=== PATIENT | male | born 1955 | race Caucasian/White ===

== ENCOUNTER → 2020-12-11 09:57 | Outpatient (CLI) | payer MEDICAID, SELFPAY ==
[2020-11-18 11:02] VITALS: BMI 32.2
--- NOTE | 2020-12-11 15:38 | PFTCOMP ---
COMPLETE PULMONARY FUNCTION TEST INTERPRETATION Brief HPI: Patient is a 65 year old male, currently under the care of [myself Dr. Powell], who presents to [facility] [place] for complete pulmonary function tests secondary to diagnosis of COPD. Respiratory therapist reports good effort and reproducible results. Interpretation: Forced expiration spirometry shows a moderately severe large airways obstructive ventilatory defect with an FEV1 of 53% predicted. There is no significant bronchodilator response by strict ATS criteria. Spirograms are of good quality and plateau [slowly, indicating slowly emptying areas of the lungs]. The respiratory flow volume loop shows [decreased expiratory flow rates at all lung volumes consistent with airway obstruction]. Lung volumes by body plethysmography show an elevated total lung capacity at 9.91 L, 168% predicted. [FRC and RV are elevated out of proportion.] Lung volume measurements are consistent with [hyperinflation and] air-trapping. Diffusion capacity by carbon monoxide is decreased at 56% predicted. The airway resistance is elevated. [No previous pulmonary function tests were available for review.] Impression: Irreversible moderately severe large airways obstructive ventilatory defect with a symmetric reduction diffusing capacity, resulting in air trapping with hyperinflation, in a pattern consistent with COPD.
== END ==
PROVIDERS: Referring Provider Internal Medicine Critical Care Medicine; Visit Provider Internal Medicine Critical Care Medicine
DX: J44.9 Chronic obstructive pulmonary disease, unspecified (principal)
CPT/HCPCS: 94060; 94726; 94729

== ENCOUNTER → 2020-12-16 07:56 | Outpatient (CLI) | payer MEDICAID, SELFPAY ==
[2020-11-18 11:02] VITALS: BMI 32.2
[2020-12-16 08:34] VITALS: PULSE 100; PULSE 103; PULSE 105; PULSE 106; PULSE 81; PULSE 90; O2SAT 92; O2SAT 93; O2SAT 94; O2SAT 96; O2SAT 98
--- NOTE | 2020-12-17 10:25 | PCM.PSN.6M ---
PSN 6 Minute Walk Test - 6 Minute Walk Test 6 Minute Walk Test: 6 Minute Walk Test PSN:6-Minute Walk Test Start: 12/16/20 08:34 Freq: Status: Active Protocol: RESP.6MINW Document 12/16/20 08:34 FR (Rec: 12/16/20 08:38 FR [id number]) 6 Minute Walk Test Date Performed 12/16/20 Time Performed 08:15 Height 5 ft 7 in Weight: 205 lb Weight in Pounds 205.[address]: DR. CUEVAS Assistive device used: None Pre-test Oxygen Delivery Method Room Air Pulse Ox (%) 98 Pulse Rate (60-100 beats/min) 81 Dyspnea David Scale (0-10) 1 Exertion David Scale (6-20) 11 1st minute Oxygen Delivery Method Room Air Pulse Ox (%) 96 Pulse Rate (60-100 beats/min) 100 2nd minute Oxygen Delivery Method Room Air Pulse Ox (%) 94 Pulse Rate (60-100 beats/min) 103 H 3rd minute Oxygen Delivery Method Room Air Pulse Ox (%) 92 Pulse Rate (60-100 beats/min) 105 H 4th minute Oxygen Delivery Method Room Air Pulse Ox (%) 93 Pulse Rate (60-100 beats/min) 105 H 5th minute Oxygen Delivery Method Room Air Pulse Ox (%) 93 Pulse Rate (60-100 beats/min) 106 H 6th minute Oxygen Delivery Method Room Air Pulse Ox (%) 92 Pulse Rate (60-100 beats/min) 106 H Dyspnea David Scale (0-10) 6 Exertion David Scale (6-20) 14 Post-test Oxygen Delivery Method Room Air Pulse Ox (%) 98 Pulse Rate (60-100 beats/min) 90 Full Laps Walked 20 Partial Lap, Number of Tiles Walked 37 Total Distance Walked (ft) 1217 - Interpretation Interpretation: The patient ambulated 1217 feet over the course of 6 minutes beginning on room air without any assistive devices. Pretesting oxygen saturation was noted to be 98% on room air. With ambulation, the [place] oxygen saturation was 92%. This represents a significant exertional oxygen desaturation. - Recommendations Recommendations: There is no indication for the use of supplemental oxygen at this time. However, close interval follow-up is recommended, given the degree of oxygen desaturation noted during the study.
== END ==
PROVIDERS: Referring Provider Internal Medicine Critical Care Medicine; Visit Provider Internal Medicine Critical Care Medicine
DX: J44.9 Chronic obstructive pulmonary disease, unspecified (principal)
CPT/HCPCS: 94618

== ENCOUNTER → 2020-12-30 19:53 | Outpatient (CLI) | payer MEDICAID, SELFPAY ==
[2020-11-18 11:02] VITALS: BMI 32.2
== END ==
PROVIDERS: Visit Provider Internal Medicine Critical Care Medicine
DX: G47.10 Hypersomnia, unspecified (principal)
CPT/HCPCS: 95810

== ENCOUNTER → 2021-01-27 16:03 | Outpatient (CLI) | payer MEDICAID, SELFPAY ==
[2021-01-26 11:14] VITALS: BMI 31.6
--- NOTE | 2021-01-27 16:07 | RAD_ITS ---
STUDY: X-RAY CHEST REASON FOR EXAM: Male, 65 years old. Reductive cough for over one year. TECHNIQUE: PA and lateral views of the chest. COMPARISON: None. FINDINGS: The lungs are well expanded. There is vague densities at both lung bases. There is no demonstrated pleural abnormality. Normal size heart. Normal mediastinum and jimi. Normal visualized pulmonary arteries. Normal visualized aortic arch and descending thoracic aorta. There are diffuse degenerative changes of the visualized thoracic spine. Normal visualized ribs, clavicles, and shoulders. There is no demonstrated abnormality of the visualized soft tissue structures of the upper abdomen. RAD/Chest PA and Lateral IMPRESSION: Bibasilar infiltrates. Electronically Signed: Micah Cole DO at 23:48 EDT Tel [phone], Service support ,
== END ==
PROVIDERS: Referring Provider Nurse Practitioner Acute Care; Visit Provider Nurse Practitioner Acute Care
DX: R05 Cough (principal)
CPT/HCPCS: 71046

== ENCOUNTER → 2021-02-10 20:04 | Outpatient (CLI) | payer MEDICAID, SELFPAY ==
[2021-01-26 11:14] VITALS: BMI 31.6
[2021-02-10] MEDS: Zolpidem Tartrate 5 MG Tablet PO (21:15)
== END ==
PROVIDERS: Visit Provider Internal Medicine Critical Care Medicine
DX: G47.10 Hypersomnia, unspecified (principal)
CPT/HCPCS: 95810

== ENCOUNTER → 2021-07-07 15:56 | Outpatient (CLI) | payer MEDICAID, SELFPAY ==
--- NOTE | 2021-07-07 15:59 | CT_ITS ---
STUDY: CT CHEST WITHOUT CONTRAST REASON FOR EXAM: Male, 65 years old. Lung nodule RADIATION DOSAGE (If Supplied By Facility): CTDIvol = ( 14.54 ) mGy, DLP = ( 621.47 ) mGycm TECHNIQUE: Transaxial imaging was performed without the administration of intravenous contrast material. Multiplanar coronal and sagittal images were reformatted. Individualized dose optimization techniques were used for this CT. COMPARISON: Comparison is made with prior chest radiograph dated 01/27/2021. FINDINGS: Hyperinflation. Diffuse emphysematous changes with bullous formation in the upper lobes. Findings suggestive of focal scarring in the right lung apex. There is no demonstrated pleural abnormality. There are calcifications of the coronary arteries. Minimal degree of anterior pericardial thickening There are multiple small lymph nodes within the mediastinum, which are normal in size and morphology most compatible with reactive lymph hyperplasia. Normal hilar regions. Normal unenhanced pulmonary arteries. There is atherosclerotic calcification of the aortic arch. There are multi-level degenerative changes of the thoracic spine. There is no demonstrated abnormality of the visualized upper abdomen. CT/Chest without Contrast IMPRESSION: Hyperinflation and emphysematous changes worse in the upper lobes with area of focal scarring in the right lung apex. Electronically Signed: Choco Martinez MD at 9:51 EDT , Service support ,
== END ==
PROVIDERS: Referring Provider Internal Medicine Critical Care Medicine; Visit Provider Internal Medicine Critical Care Medicine
DX: R91.1 Solitary pulmonary nodule (principal)
CPT/HCPCS: 71250

== ENCOUNTER → 2021-08-17 09:58 | Outpatient (CLI) | payer MEDICAID, SELFPAY ==
[2021-08-17 13:38] LABS: Bacteria 0 SEEN /hpf (None Seen); Mucous, Urine 0 SEEN /hpf (<or=2+); Red Blood Cells-Urine 0 SEEN /hpf (0-5); Squamous Epithelial Cells - UA 0 SEEN /hpf (0-5); White Blood Cells 0 SEEN /hpf (0-5)
[2021-08-17 15:06] LABS: Color, Urine Yellow (Yellow); Glucose, Dipstick Normal (Normal); Ketone-Dipstick Negative (Negative); Leukocyte Esterase-Dipstick Negative /ul (Negative); Nitrite-Dipstick Negative (Negative); Occult Blood-Urine Negative /ul (Negative); Protein-Dipstick Negative (Negative); Specific Gravity, Urine 1.005 (1.002-1.030); Urine Bilirubin Dipstick Negative (Negative); Urine Clarity Clear (Clear); Urine Urobilinogen Normal (Normal); Urine pH 6.5 (5.0 - 8.0)
[2021-08-17 15:09] LABS: Absolute Lymphocyte Count 2.18 X10^3/uL (0.83-4.51); Absolute Neutrophil Count 5.8 X10^3/uL (2.0-7.7); Basophil# 0.05 X10^3/uL; Basophil% 0.5 % (0-1); Eosinophil# 0.17 X10^3/uL; Eosinophils% 1.8 % (0-5); Hematocrit 45.8 % (40-54); Hemoglobin 15.1 g/dL (13.0-16.5); Lymphocyte # 2.18 X10^3/ul (0.83-4.51); Lymphocyte % 23.6 % (19-41); Mean Corpuscular Hgb 32.3 pg (27.0-32.0); Mean Corpuscular Volume 98.1 fL (80-94); Mean Platelet Vol. 11.7 fl (6.2-12.0); Monocyte# 0.96 X10^3/uL; Monocyte% 10.4 % (0-10); NRBC Flagged by Analyzer 0 % (0-5); Neutrophil # 5.83 X10^3/uL (2.7-7.7); Neutrophil % 63.4 % (47-70); Platelet Count 215 K/mm3 (150-450); RBC Distribution Width CV 12.6 % (11.6-14.6); RBC Distribution Width SD 45.2 fl (35.1-43.9); Red Blood Count 4.67 M/mm3 (4.6-6.2); White Blood Count 9.2 K/mm3 (4.4-11.0)
[2021-08-17 15:34] LABS: ALB/GLOB Ratio 1.1 RATIO (0.9-2.4); AST(SGOT) 18 U/L (15-37); Alanine Aminotransfer ALT/SGPT 25 U/L (16-61); Alkaline Phosphatase 101 U/L (45-117); Anion Gap 5 (5-15); BUN 10 mg/dL (7-18); BUN/Creat Ratio 9.3 RATIO (10-20); CPK Total, Creatine Kinase 176 U/L (39-308); Calcium,Total 9.2 mg/dL (8.5-10.1); Chloride 103 mmol/L (98-107); Cholesterol 136 mg/dL (200); Creatinine, Serum 1.08 mg/dL (0.70-1.30); EST Glomerular Filtration Rate 73 mL/min (>60); Est Glom Filt Rate - Afr Amer 88 mL/min (>60); Ferritin 161 ng/mL (26-388); Globulin 3.7 g/dL (2.2-4.2); Glucose 119 mg/dL (74-106); High Density Lipoprotein 44 mg/dL; Magnesium 2.4 mg/dL (1.6-2.6); Protein, Total 7.7 g/dL (6.4-8.2); Sodium Level 137 mmol/L (136-145); T4 Free Direct 1.06 ng/dL (0.76-1.46); Thyroid Stim Hormone (TSH) 4.05 uIU/mL (0.358-3.74); Triglycerides 140 mg/dL; Very Low Density Lipoprotein 28 mg/dL (5-40)
[2021-08-19 23:09] LABS: Anti-Thyroglobulin AB < 1.0 IU/mL (0.0-0.9); Thyroglobulin, Serum Qt. 17.2 ng/mL (1.4-29.2); Thyroid Peroxidase AB < 8 IU/mL (0-34)
== END ==
PROVIDERS: Visit Provider Family Medicine
DX: I10 Essential (primary) hypertension (principal); E04.1 Nontoxic single thyroid nodule; R25.2 Cramp and spasm
CPT/HCPCS: 80053; 80061; 81001; 82043; 82550; 82570; 82728; 83735; 84432; 84439; 84443; 85025; 86376; 86800

== ENCOUNTER → 2021-09-23 13:44 | Outpatient (CLI) | payer MEDICAID, SELFPAY ==
--- NOTE | 2021-09-23 13:47 | US_ITS ---
STUDY: THYROID ULTRASOUND REASON FOR EXAM: Male, 65 years old. NODULE TECHNIQUE: Ultrasound evaluation of the thyroid was performed with real-time and static aponte-scale imaging. COMPARISON: None. FINDINGS: RIGHT LOBE: The right lobe of the thyroid gland measures 4.5 x 2 x 1.4 cm. There is a homogeneous echotexture. There are no demonstrated solid, cystic or complex lesions. LEFT LOBE: The left lobe of the thyroid gland measures 4.8 x 2.5 x 2 cm. There is a homogeneous echotexture. There are no demonstrated solid, cystic or complex lesions. ISTHMUS: The isthmus measures 2.2 mm. The regional lymph nodes are normal. US/Thyroid IMPRESSION: There are no acute findings on this ultrasound examination of the thyroid. Electronically Signed: Keanu Liang MD at 15:34 EST , Service support ,
--- NOTE | 2021-09-23 13:47 | US_ITS ---
STUDY: ABDOMINAL ULTRASOUND - RIGHT UPPER QUADRANT REASON FOR VISIT: Male, 65 years old. ABDOMEN PAIN RUQ PAIN TECHNIQUE: Ultrasound evaluation of the right upper quadrant was performed with real-time and static aponte-scale imaging. TECHNICAL QUALITY: Adequate. COMPARISON: None. FINDINGS: Liver: There is increased echogenicity consistent with fatty infiltration. The bile ducts are within normal limits. There is hepatic color flow. The direction of portal flow is hepatopetal. There is no demonstrated mass lesion. Gallbladder: Normal distended gallbladder. The gallbladder wall measures 2.8 mm. There is a negative sonographic Molina''s sign. There is no pericholecystic fluid. There are no gallstones. Common Bile Duct (C.B.D.): The common bile duct measures ( in mm): 3.5 Pancreas: Normal size of the head, body of the pancreas. There is normal echogenicity of the pancreas. There is no demonstrated pancreatic mass or cyst. Right Kidney: Normal size of the right kidney. The right kidney measures 9.6 cm. . Normal renal cortex. There is no demonstrated renal mass or cyst. There is no right hydronephrosis. Aorta: It is not visualized. There is too much overlying bowel gas. . US/Abdomen Limited IMPRESSION: Fatty liver. Electronically Signed: Keanu Liang MD at 15:47 EST , Service support ,
== END ==
PROVIDERS: Referring Provider Family Medicine; Visit Provider Family Medicine
DX: E04.1 Nontoxic single thyroid nodule (principal); R10.11 Right upper quadrant pain
CPT/HCPCS: 76536; 76705

== ENCOUNTER 2021-10-21 16:42 | Outpatient (CLI) | payer MEDICAID, SELFPAY ==
[2021-10-21 17:52] LABS: Absolute Lymphocyte Count 1.93 X10^3/uL (0.83-4.51); Absolute Neutrophil Count 5.5 X10^3/uL (2.0-7.7); Basophil# 0.04 X10^3/uL; Basophil% 0.5 % (0-1); Eosinophil# 0.13 X10^3/uL; Eosinophils% 1.5 % (0-5); Hematocrit 41.1 % (40-54); Hemoglobin 13.9 g/dL (13.0-16.5); Lymphocyte # 1.93 X10^3/ul (0.83-4.51); Lymphocyte % 22.7 % (19-41); Mean Corp Hgb Conc 33.8 g/dL (32-36); Mean Corpuscular Hgb 32.8 pg (27.0-32.0); Mean Corpuscular Volume 96.9 fL (80-94); Mean Platelet Vol. 11.3 fl (6.2-12.0); Monocyte# 0.91 X10^3/uL; Monocyte% 10.7 % (0-10); NRBC Flagged by Analyzer 0 % (0-5); Neutrophil # 5.46 X10^3/uL (2.7-7.7); Neutrophil % 64.1 % (47-70); Platelet Count 182 K/mm3 (150-450); RBC Distribution Width CV 12.2 % (11.6-14.6); RBC Distribution Width SD 43.6 fl (35.1-43.9); Red Blood Count 4.24 M/mm3 (4.6-6.2); White Blood Count 8.5 K/mm3 (4.4-11.0)
[2021-10-21 18:27] LABS: Vitamin D,25 Hydroxy 61.7 ng/mL
[2021-10-22 07:57] LABS: ALB/GLOB Ratio 1.1 RATIO (0.9-2.4); AST(SGOT) 17 U/L (15-37); Alanine Aminotransfer ALT/SGPT 24 U/L (16-61); Albumin, Serum 3.9 g/dL (3.2-5.0); Alkaline Phosphatase 92 U/L (45-117); Anion Gap 7 (5-15); BUN 9 mg/dL (7-18); BUN/Creat Ratio 9.5 RATIO (10-20); Chloride 107 mmol/L (98-107); Cholesterol 113 mg/dL (200); Creatinine, Serum 0.94 mg/dL (0.70-1.30); EST Glomerular Filtration Rate 85 mL/min (>60); Est Glom Filt Rate - Afr Amer 103 mL/min (>60); Globulin 3.4 g/dL (2.2-4.2); Glucose 88 mg/dL (74-106); High Density Lipoprotein 40 mg/dL; Potassium 4.1 mmol/L (3.5-5.1); Protein, Total 7.3 g/dL (6.4-8.2); Sodium Level 141 mmol/L (136-145); T4 Free Direct 1.07 ng/dL (0.76-1.46); Thyroid Stim Hormone (TSH) 1.95 uIU/mL (0.358-3.74); Triglycerides 106 mg/dL; Very Low Density Lipoprotein 21 mg/dL (5-40)
[2021-10-22 09:59] LABS: Hemoglobin A1c 5.6 % (3.8-5.6)
== END 2021-10-21 23:59 | disposition short-term general hospital (02) ==
LOC: MFPLAB 16:46
PROVIDERS: Family Medicine; PCP Family Medicine; Referring Provider Family Medicine; Visit Provider Family Medicine
DX: I10 Essential (primary) hypertension (principal); R73.02 Impaired glucose tolerance (oral); E78.5 Hyperlipidemia, unspecified; E03.8 Other specified hypothyroidism; E55.9 Vitamin D deficiency, unspecified
CPT/HCPCS: 36415; 80053; 80061; 82306; 83036; 84439; 84443; 85025

== ENCOUNTER 2021-11-24 09:57 | Outpatient (CLI) | payer MEDICARE, BC, SELFPAY ==
--- NOTE | 2021-11-24 13:37 | PFTCOMP_ITS ---
COMPLETE PULMONARY FUNCTION TEST INTERPRETATION Brief HPI: Patient is a 66 year old male, currently under the care of myself, who presents to [facility] for complete pulmonary function tests secondary to diagnosis of COPD. Respiratory therapist reports good effort and reproducible results. Interpretation: Forced expiration spirometry shows a severe large airways obstructive ventilatory defect with an FEV1 of 47% predicted. There is a significant bronchodilator response in FVC and FEV1 by strict ATS criteria. Spirograms are of good quality and plateau slowly, indicating slowly emptying areas of the lungs. The respiratory flow volume loop shows decreased expiratory flow rates at all lung volumes consistent with airway obstruction. Lung volumes by body plethysmography show an elevated total lung capacity at 8.4 L, 143% predicted. FRC and RV are elevated out of proportion. Lung volume measurements are consistent with hyperinflation and air-trapping. Diffusion capacity by carbon monoxide is decreased at 52% predicted. The airway resistance is elevated. Compared to previous pulmonary function tests from 12/11/2020, there has been a significant decrease in FVC and FEV1 by 25%. Impression: Partially reversible severe large airways obstructive ventilatory defect resulting in air trapping with hyperinflation and a symmetric adduction diffusion capacity.
== END 2021-11-24 23:59 | disposition home or self-care (01) ==
PROVIDERS: PCP Family Medicine; Referring Provider Internal Medicine Critical Care Medicine; Visit Provider Internal Medicine Critical Care Medicine
DX: J44.9 Chronic obstructive pulmonary disease, unspecified (principal)
CPT/HCPCS: 94060; 94726; 94729

== ENCOUNTER → 2022-03-11 | Outpatient (CLI) | payer MEDICARE, BC, SELFPAY ==
[2022-03-11 17:56] LABS: Absolute Lymphocyte Count 1.62 X10^3/uL (0.83-4.51); Absolute Neutrophil Count 5.6 X10^3/uL (2.0-7.7); Basophil# 0.04 X10^3/uL; Basophil% 0.5 % (0-1); Eosinophil# 0.12 X10^3/uL; Eosinophils% 1.5 % (0-5); Hematocrit 41.5 % (40-54); Hemoglobin 13.6 g/dL (13.0-16.5); Lymphocyte # 1.62 X10^3/ul (0.83-4.51); Lymphocyte % 19.9 % (19-41); Mean Corp Hgb Conc 32.8 g/dL (32-36); Mean Corpuscular Hgb 31.9 pg (27.0-32.0); Mean Corpuscular Volume 97.4 fL (80-94); Mean Platelet Vol. 11.5 fl (6.2-12.0); Monocyte# 0.75 X10^3/uL; Monocyte% 9.2 % (0-10); NRBC Flagged by Analyzer 0 % (0-5); Neutrophil # 5.58 X10^3/uL (2.7-7.7); Neutrophil % 68.5 % (47-70); Platelet Count 219 K/mm3 (150-450); RBC Distribution Width CV 12.5 % (11.6-14.6); RBC Distribution Width SD 44.9 fl (35.1-43.9); Red Blood Count 4.26 M/mm3 (4.6-6.2); White Blood Count 8.1 K/mm3 (4.4-11.0)
[2022-03-11 18:02] LABS: Vitamin D,25 Hydroxy 69.8 ng/mL
[2022-03-11 18:05] LABS: ALB/GLOB Ratio 1.4 RATIO (0.9-2.4); AST(SGOT) 14 U/L (15-37); Alanine Aminotransfer ALT/SGPT 22 U/L (16-61); Albumin, Serum 3.8 g/dL (3.2-5.0); Alkaline Phosphatase 95 U/L (45-117); Anion Gap 5 (5-15); BUN 9 mg/dL (7-18); BUN/Creat Ratio 9.1 RATIO (10-20); Calcium,Total 8.9 mg/dL (8.5-10.1); Chloride 107 mmol/L (98-107); Cholesterol 126 mg/dL (200); Creatinine, Serum 0.99 mg/dL (0.70-1.30); EST Glomerular Filtration Rate 80 mL/min (>60); Est Glom Filt Rate - Afr Amer 97 mL/min (>60); Globulin 2.8 g/dL (2.2-4.2); Glucose 101 mg/dL (74-106); High Density Lipoprotein 48 mg/dL; Potassium 4.3 mmol/L (3.5-5.1); Protein, Total 6.6 g/dL (6.4-8.2); Sodium Level 139 mmol/L (136-145); Thyroid Stim Hormone (TSH) 2.25 uIU/mL (0.358-3.74); Triglycerides 93 mg/dL; Very Low Density Lipoprotein 19 mg/dL (5-40)
== END | disposition home or self-care (01) ==
LOC: MFPLAB 15:43
PROVIDERS: PCP Family Medicine; Referring Provider Family Medicine; Visit Provider Family Medicine
DX: E55.9 Vitamin D deficiency, unspecified (principal); E03.8 Other specified hypothyroidism; E78.5 Hyperlipidemia, unspecified; I10 Essential (primary) hypertension
CPT/HCPCS: 36415; 80053; 80061; 82306; 84439; 84443; 85025

== ENCOUNTER 2022-05-10 09:25 | Day surgery (SDC) | payer MEDICARE, BC, SELFPAY ==
[2022-05-10] VITALS (7 sets, daily range): BP systolic 110–135; BP diastolic 75–86; PULSE 72–77; RESP 16; TEMP 36.2–36.3; O2SAT 96–100; BMI 30.7
--- NOTE | 2022-05-10 | IMM_PTH ---
PATIENT: EVELINE REYNOLDS LOC: EN U#:[id number] AGE/SX: 66/M ROOM: RE05/10/[address]: Dr. Lilian Kimbrough MD : 1955 BED: DIS: 05/10/2022 SPEC #: [id number] RECD: 05/11/22 07:57 STATUS: JAYDON REEfrain #: [id number] DEJAH: 05/10/22 00:[address]: Lilian Kimbrough DEPT: IMMUNOHISTOCHEMISTRY RECD BY: Meaghan Lara ENTERED: 05/11/22 07:57 SP TYPE: IMMUNO OTHR DR: Dr. Alexsander Casanova MD Tissues: COLON BIOPSY Procedures: H Pylori (initial) CK7 (add) KI-67 (add) P53 (add) CDX2 (add) CK20 (initial) PHYSICIAN & INSTITUTION [place] [id number] SPECIMEN INFORMATION: Tissue Source: A. Antrum biopsy, B. GE junction Clinical Info: GERD, history of colonic polyp Specimen Number: [id number] A & B CPT code: 85963 x2, 21044 x4 METHODOLOGY: Deparaffinized sections of prefer/formalin-fixed tissue or PAP/DQ stained slides are incubated with monoclonal/polyclonal antibodies/oligonucleotide probes. Localization is made via biotin free immunoperoxidase method. Appropriate controls are performed and reacted as expected. Results on target cell population are indicated in the following table: RESULTS: ANTIBODY / CLONE RESULT Block A H Pylori (polyclonal) negative Block B P53 (DO-7) negative Ki-67 (30-9) positive, high CK7 (OV-TL12/30) positive CK20 (KS20.8) positive, rare cells CDX2 ([id number]) positive These tests were developed and their performance characteristics determined by [facility]. They may not have been cleared or approved by the U.S. Food and Drug Administration. The FDA has determined that such clearance or approval is not necessary. The above immunohistochemical/dualISH markers are ordered and reviewed by the Pathologist. INTERPRETATION: A. Antrum biopsy: Negative for Helicobacter pylori organisms. B. GE junction, biopsy: Focal epithelial atypia, indefinite for low grade dysplasia. This case has been reviewed in consultation with Dr. Boudreaux who concurs with above diagnosis. SJ:davin 05/12/22
--- NOTE | 2022-05-10 09:41 | H&P.OPEN ---
HPI - General HPI Narrative EVELINE REYNOLDS, is a 66 M who presents for EGD and colonoscopy. Patient still controlled with his lansoprazole for reflux symptoms. Patient last colonoscopy about 7 years ago had a couple polyps at that time per patient. Denies any family history of colon cancer. EVELINE REYNOLDS, is a 66 M who presents to the office today for colonoscopy due to history of colon polyps patient's colonoscopy was approximately 7 years ago in [place] unsure [facility] Patient states he had 2-3 polyps at that time.? Patient states he has bowel movements daily denies any blood.? Denies any chronic abdominal pain nausea/vomiting.? Patient states he has been on lansoprazole for about 5 years does control his reflux symptoms.? Patient had an EGD previously a long time prior to even being on the reflux medication.? Patient has never had an EGD since the medication. [facility] Medical History (Updated 05/05/22 @ 11:28 by Diamante Bates) Anxiety Arthritis Asthma Back pain Carpal tunnel syndrome Chronic bronchiolitis Chronic cough COPD (chronic obstructive pulmonary disease) Deficient knowledge of leg surgery Depression Easy bruising Fatty liver GERD (gastroesophageal reflux disease) History of diverticulitis History of hiatal hernia History of stress test Hypertension Leg cramps On home oxygen therapy Osteoarthritis Prostate atrophy Prostate disease Smoker Wears dentures Wears glasses Wears hearing aid Home Medications cholecalciferol (vitamin D3) 50 mcg (2,000 unit) capsule 2,000 unit PO DAILY 11/24/17 [History Last Taken Unknown] multivitamin with folic acid 200 mcg chewable tablet (Adult Multivitamin Extra Vitamin D3) 200 mcg PO DAILY 11/24/17 [History Last Taken Unknown] tamsulosin 0.4 mg capsule 0.4 mg PO QHS 11/24/17 [History Last Taken Unknown] cetirizine 10 mg capsule (All Day Allergy (cetirizine)) 10 mg PO DAILY 01/26/21 [History Last Taken Unknown] albuterol sulfate 90 mcg/actuation aerosol inhaler 2 puff inhalation Q6H PRN SOB 12/11/21 [History Last Taken Unknown] finasteride 5 mg tablet 5 mg PO DAILY 12/11/21 [History Last Taken Unknown] sertraline 50 mg tablet 50 mg PO DAILY 12/11/21 [History Last Taken Unknown] amlodipine 5 mg tablet 5 mg PO QHS 05/05/22 [History Last Taken Unknown] atorvastatin 20 mg tablet 20 mg PO QHS 05/05/22 [History Last Taken Unknown] cyanocobalamin-liver extract tablet 1 tab PO QWEEK 05/05/22 [History Last Taken Unknown] docusate sodium 100 mg capsule (Stool Softener) 100 mg PO DAILY 05/05/22 [History Last Taken Unknown] fluticasone fur. 100 mcg-umeclid 62.5 mcg-vilant 25 mcg inhalat.powder (Trelegy Ellipta) 1 inh inhalation DAILY 05/05/22 [History Last Taken Unknown] guaifenesin 600 mg tablet, extended release 12 hr (Mucinex) 600 mg PO Q12H PRN Cough 05/05/22 [History Last Taken Unknown] lansoprazole 15 mg capsule,delayed release 30 mg PO BID 05/05/22 [History Last Taken Unknown] Allergy/AdvReac Type Severity Reaction Status Date / Time ibuprofen Allergy Mild shakes Verified 05/05/22 11:13 formoterol AdvReac Unknown unknown Verified 05/05/22 11:13 mometasone furoate AdvReac Unknown unknown Verified 05/05/22 11:13 Family History Other Alcohol abuse Anemia Arthritis Heart disease Kidney disease Myocardial infarction Respiratory disease Surgical History (Updated 05/05/22 @ 11:28 by Diamante Bates) History of esophagogastroduodenoscopy (EGD) Hx of colonoscopy Hx of foot surgery Social History Smoking Status: Current every day smoker tobacco type: cigarettes Tobacco: How many years used: 40 alcohol intake: never substance use type: does not use what type of physical activity do you participate in: none Past Medical/Surgical History Planned Operation Planned Operative Procedure/s: EGD/CSCOPE Previous Hospitalizations/Surgeries HX Hospitalizations: No Any Problems With Anesthesia: No You/Your Family Experience Fever (Hyperthermia) With Anes: No Cholinesterase deficiency: No Cardiovascular Hx Hypertension: Yes (CONTROLLED WITH MED) Respiratory Hx Sleep Apnea: No Hx Respiratory Tract Infection/Cold (presently): No Do You Snore Loudly (louder than talking or can be heard): Yes Do You Often Feel Tired/ Fatigued/ Sleepy Dring Daytime?: No Has Anyone Observed You Stop Breathing During Sleep?: No Result (for STOP score): Positive Smoking Status: Current every day smoker Neurological Does patient have nerve stimulator: No Reproduction : No Allergies ibuprofen Allergy (Mild, Verified 05/05/22 11:13) shakes formoterol Adverse Reaction (Unknown, Verified 05/05/22 11:13) unknown mometasone furoate Adverse Reaction (Unknown, Verified 05/05/22 11:13) unknown Discharge Is Pt Admitted From a [facility], or a Fdc: No After D/C, Where Do you Plan to Go: Return Home Physical Exam Const alert, oriented x3 and no apparent distress HEENT normocephalic and head/scalp atraumatic Resp normal respiratory effort Cardio regular rate GI soft to palpation and non-tender; Negative for non-distended Palpation: Negative for guarding Extremity no clubbing, cyanosis or edema Neuro CN's II-XII intact bilaterally Psych mental status grossly normal Assessment & Plan Assessment/Plan (1) GERD (gastroesophageal reflux disease): (2) Hx of colonic polyps: Surgery Risks - Colonoscopy Risks Include but are not Limited To: Risks include but are not limited to: Bleeding, perforation requiring further surgery, inability to complete colonoscopy requiring barium enema.
[2022-05-10] MEDS: Lactated Ringers 1,000 ML 15 ML IV ×3 (10:10→11:01)
--- NOTE | 2022-05-10 10:30 | EGD_PTH ---
PATIENT: EVELINE REYNOLDS LOC: [facility] U#:[id number] AGE/SX: 66/M ROOM: RE05/10/[address]: Dr. Lilian Kimbrough MD : 1955 BED: DIS: 05/10/2022 SPEC #: [id number] RECD: 05/10/22 11:32 STATUS: JAYDON LOUANN #: [id number] DEJAH: 05/10/22 10:[address]: Lilian Kimbrough DEPT: SURGICAL PATHOLOGY RECD BY: Domi Brandno ENTERED: 05/10/22 12:18 SP TYPE: EGD BIOPSY OT DR: Dr. Alexsander Casanova MD Tissues: A - Gastric mucous membrane B - Stomach, NOS C - Cecum, NOS D - Cecum, NOS E - Ascending colon F - Sigmoid colon biopsy G - Rectum, NOS Procedures: Surgery Specimen Level IV HEADER OPERATION: Colonoscopy, E[place] [place] with biopsies and polypectomy PRE-OP DIAGNOSIS: GERD, history of colonic polyp TISSUE SUBMITTED: A. Antrum biopsy, B. GE junction, C. Cecum polyps x4, D. Cecum polyp, E. Ascending polyp, F. Sigmoid polyp x2, G. Rectum polyp MICROSCOPIC DIAGNOSIS A. Antrum biopsy: Mild gastritis. See microscopic description and comment. B. GE junction, biopsy: A fragment of gastroesophageal mucosa with focal epithelial atypia, indefinite for low grade dysplasia. Focal chronic inflammation. Intestinal metaplasia (goblet cell metaplasia) not identified. See comment. C. Cecum polyps x4, biopsy: Fragments of tubular adenoma. D. Cecum polyp, biopsy: Tubular adenoma. E. Ascending polyp, biopsy: Fragments of tubular adenoma. Fragments of fecal material. F. Sigmoid polyp x2, biopsy: Tubular adenoma. Fragments of hyperplastic polyp. G. Rectum polyp, biopsy: Hyperplastic polyp. SJ 05/12/22 COMMENT A. The results of immunohistochemistry for Helicobacter pylori will be reported separately ([id number]). B. Alcian blue/PAS stain with matched control supports the above diagnosis. Immunohistochemistry ([id number]) for P53 and Ki-67 will be performed and results will be reported separately. Correlation with clinical, endoscopic findings and appropriate follow up are necessary. Case has been reviewed in consultation with Dr. Boudreaux who concurs with the above diagnosis. IDC:AM MICROSCOPIC DESCRIPTION Slides are reviewed. The specimen shows fragments of gastric mucosa with chronic inflammatory cell infiltrates in the lamina propria consisting of lymphocytes and plasma cells, consistent with mild chronic gastritis. GROSS DESCRIPTION A. Received is one container labeled with the patient name and designated antrum. The specimen consists of one irregular fragment of light connors soft tissue that measures 03 x 0.3 x 0.1 cm. The specimen is totally submitted in one cassette. B. Received is one container labeled with the patient name and designated GE junction. The specimen consists of one irregular fragment of light connors soft tissue that measures 0.3 x 0.3 x 0.1cm. The specimen is totally submitted in one cassette. C. Received is one container labeled with the patient name and designated cecum. The specimen consists of multiple irregular fragments of light connors soft tissue that in aggregate measure 2.0 x 0.5 x 0.1 cm. The specimen is totally submitted in one cassette. / D. Received is one container labeled with the patient name and designated cecum polyp. The specimen consists of one connors pink polyp that measures 1.0 x 0.5 x 0.5cm. The apparent base is inked. The specimen is bisected and totally submitted in one cassette. E. Received is one container labeled with the patient name and designated ascending polyp. The specimen consists of multiple irregular fragments of light connors soft tissue mixed with fecal material that in aggregate measure 1.0 x 0.5 x 0.1 cm. The specimen is totally submitted in one cassette. F. Received is one container labeled with the patient name and designated sigmoid polyp. The specimen consists of multiple irregular fragments of light connors soft tissue that in aggregate measure 1.5 x 0.5 x 0.3 cm. The specimen is totally submitted in one cassette. / G. Received is one container labeled with the patient name and designated rectum. The specimen consists of one connors pink polyp that measures 0.5 x 0.5 x 0.3 cm. The specimen is totally submitted in one cassette. /SJ:davin 05/10/22 TC:1 CPT: 27339 x 7, 39552
--- NOTE | 2022-05-10 11:19 | OP.EGD_ITS ---
Patient Name: Kale Sheehan Procedure Date: 05/10/2022 10:20 AM Date of : 1955 Age: 66 Procedure: Upper GI endoscopy Indications: Esophageal reflux Providers: Lilian Kimbrough MD Referring MD: Alexsander Casanova Medicines: Monitored Anesthesia Care Patient Profile: This is a 66 year old male. Complications: No immediate complications. Procedure: Pre-Anesthesia Assessment: - Prior to the procedure, a History and Physical was performed, and patient medications and allergies were reviewed. The patient's tolerance of previous anesthesia was also reviewed. The risks and benefits of the procedure and the sedation options and risks were discussed with the patient. All questions were answered, and informed consent was obtained. Prior Anticoagulants: The patient has taken no previous anticoagulant or antiplatelet agents. ASA Grade Assessment: Per anesthesia. After reviewing the risks and benefits, the patient was deemed in satisfactory condition to undergo the procedure. After obtaining informed consent, the endoscope was passed under direct vision. Throughout the procedure, the patient's blood pressure, pulse, and oxygen saturations were monitored continuously. The pediatric colonoscope was introduced through the mouth, and advanced to the second part of duodenum. The upper GI endoscopy was accomplished without difficulty. The patient tolerated the procedure well. Scope In: 10:26:37 AM Scope Out: 10:31:44 AM Total Procedure Duration Time 0 hours 5 minutes 7 seconds Findings: The Z-line was variable and was found 40 cm from the incisors. Biopsies were taken with a cold forceps for histology. The examined duodenum was normal. Mildly erythematous mucosa was found in the gastric antrum. Biopsies were taken with a cold forceps for histology. Biopsies were taken with a cold forceps for Helicobacter pylori cultures. The cardia and gastric fundus were normal on retroflexion. The exam was otherwise without abnormality. Impression: - Z-line variable, 40 cm from the incisors. Biopsied. - Normal examined duodenum. - Erythematous mucosa in the antrum. Biopsied. - The examination was otherwise normal. Recommendation: - Await pathology results. - Discharge patient to home. - Resume previous diet. - Continue present medications. Procedure Code(s): --- Professional --- 05129, Esophagogastroduodenoscopy, flexible, transoral; with biopsy, single or multiple Diagnosis Code(s): --- Professional --- K22.8, Other specified diseases of esophagus K21.9, Gastro-esophageal reflux disease without esophagitis K31.89, Other diseases of stomach and duodenum CPT copyright 2017 [employer]. All rights reserved. The codes documented in this report are preliminary and upon protection officer review may be revised to meet current compliance requirements. MD Lilian Mcbride MD 05/10/2022 11:18:48 AM This report has been signed electronically. Number of Addenda: 0 Note Initiated On: 05/10/2022 10:20 AM
--- NOTE | 2022-05-10 11:20 | OP.CCLET_ITS ---
05/10/2022 Cliff Pastor [address] [place] [address] Re : Upper GI endoscopy procedure for Kale Davisbbins Dear Dr. Pastor This procedure was performed on Tuesday, May 10, 2022. My impressions and recommendations are as follows: Impressions : - Z-line variable, 40 cm from the incisors. Biopsied. - Normal examined duodenum. - Erythematous mucosa in the antrum. Biopsied. - The examination was otherwise normal. Recommendations : - Await pathology results. - Discharge patient to home. - Resume previous diet. - Continue present medications. My findings are described in the full procedure note, which is enclosed. If I can be of further assistance, please feel free to contact me at Doctor phone number(s): , Work: . Sincerely, MD Lilian Mcbride MD 05/10/2022 11:18:48 AM This report has been signed electronically.
--- NOTE | 2022-05-10 11:28 | OP.COLON_ITS ---
Patient Name: Kale Sheehan Procedure Date: 05/10/2022 10:31 AM Date of : 1955 Age: 66 Procedure: Colonoscopy Indications: High risk colon cancer surveillance: Personal history of colonic polyps Providers: Lilian Kimbrough MD Referring MD: Alexsander Casanova Medicines: Monitored Anesthesia Care Patient Profile: This is a 66 year old male. This is a 66 year old male. Last Colonoscopy: 7 years ago. Complications: No immediate complications. Procedure: Pre-Anesthesia Assessment: - Prior to the procedure, a History and Physical was performed, and patient medications and allergies were reviewed. The patient's tolerance of previous anesthesia was also reviewed. The risks and benefits of the procedure and the sedation options and risks were discussed with the patient. All questions were answered, and informed consent was obtained. Prior Anticoagulants: The patient has taken no previous anticoagulant or antiplatelet agents. ASA Grade Assessment: Per anesthesia. After reviewing the risks and benefits, the patient was deemed in satisfactory condition to undergo the procedure. After I obtained informed consent, the scope was passed under direct vision. Throughout the procedure, the patient's blood pressure, pulse, and oxygen saturations were monitored continuously. The pediatric colonoscope was introduced through the anus and advanced to the cecum, identified by the appendiceal orifice, ileocecal valve and palpation. The colonoscopy was performed without difficulty. The patient tolerated the procedure well. The quality of the bowel preparation was good. Scope In: 10:33:03 AM Scope Withdrawal Time 0 hours 30 minutes 16 seconds Scope Out: 11:09:14 AM Total Procedure Duration Time 0 hours 36 minutes 11 seconds Findings: Ten semi-pedunculated polyps were found in the rectum, sigmoid colon, ascending colon and cecum. The polyps were 3 to 6 mm in size. These polyps were removed with a hot snare. Resection and retrieval were complete. A less than 5 mm polyp was found in the cecum. The polyp was sessile. The polyp was removed with a cold biopsy forceps. Resection and retrieval were complete. A few small-mouthed diverticula were found in the sigmoid colon and descending colon. The exam was otherwise without abnormality on direct and retroflexion views. Non-bleeding internal hemorrhoids were found. The hemorrhoids were Grade I (internal hemorrhoids that do not prolapse). Impression: - Ten 3 to 6 mm polyps in the rectum, in the sigmoid colon, in the ascending colon and in the cecum, removed with a hot snare. Resected and retrieved. - One less than 5 mm polyp in the cecum, removed with a cold biopsy forceps. Resected and retrieved. - Diverticulosis in the sigmoid colon and in the descending colon. - The examination was otherwise normal on direct and retroflexion views. - Non-bleeding internal hemorrhoids. Recommendation: - Discharge patient to home. - High fiber diet. - Continue present medications. - Await pathology results. - Repeat colonoscopy in 3 - 5 years for surveillance based on pathology results. Procedure Code(s): --- Professional --- 34216, PT, Colonoscopy, flexible; with removal of tumor(s), polyp(s), or other lesion(s) by snare technique 10297, 59, Colonoscopy, flexible; with biopsy, single or multiple Diagnosis Code(s): --- Professional --- Z86.010, Personal history of colonic polyps K62.1, Rectal polyp D12.5, Benign neoplasm of sigmoid colon D12.2, Benign neoplasm of ascending colon D12.0, Benign neoplasm of cecum K57.30, Diverticulosis of large intestine without perforation or abscess without bleeding CPT copyright 2017 [employer]. All rights reserved. The codes documented in this report are preliminary and upon computer language coder review may be revised to meet current compliance requirements. MD Lilian Mcbride MD 05/10/2022 11:28:14 AM This report has been signed electronically. Number of Addenda: 0 Note Initiated On: 05/10/2022 10:31 AM
--- NOTE | 2022-05-10 11:29 | OP.CCLET_ITS ---
05/10/2022 Alexsander Casanova [address] [place] [address] Re : Colonoscopy procedure for Kale Sheehan Dear Dr. Casanova This procedure was performed on Tuesday, May 10, 2022. My impressions and recommendations are as follows: Impressions : - Ten 3 to 6 mm polyps in the rectum, in the sigmoid colon, in the ascending colon and in the cecum, removed with a hot snare. Resected and retrieved. - One less than 5 mm polyp in the cecum, removed with a cold biopsy forceps. Resected and retrieved. - Diverticulosis in the sigmoid colon and in the descending colon. - The examination was otherwise normal on direct and retroflexion views. - Non-bleeding internal hemorrhoids. Recommendations : - Discharge patient to home. - High fiber diet. - Continue present medications. - Await pathology results. - Repeat colonoscopy in 3 - 5 years for surveillance based on pathology results. My findings are described in the full procedure note, which is enclosed. If I can be of further assistance, please feel free to contact me at Doctor phone number(s): , Work: . Sincerely, MD Lilian Mcbride MD 05/10/2022 11:28:14 AM This report has been signed electronically.
== END 2022-05-10 12:43 | disposition home or self-care (01) ==
LOC: EN 09:26 → AC 09:28
PROVIDERS: PCP Family Medicine; Referring Provider Family Medicine; Visit Provider Surgery
PROC: 0DJD8ZZ Inspection of Lower Intestinal Tract, Via Natural or Artificial Opening Endoscopic (ICD-10-PCS; CPT 45378; principal; 2022-05-10 10:25)
DX: K29.50 Unspecified chronic gastritis without bleeding (principal); D12.0 Benign neoplasm of cecum; D12.2 Benign neoplasm of ascending colon; D12.5 Benign neoplasm of sigmoid colon; K62.1 Rectal polyp; K31.89 Other diseases of stomach and duodenum; K22.89 Other specified disease of esophagus; K21.9 Gastro-esophageal reflux disease without esophagitis; K57.30 Diverticulosis of large intestine without perforation or abscess without bleeding; I10 Essential (primary) hypertension; F17.210 Nicotine dependence, cigarettes, uncomplicated; K64.0 First degree hemorrhoids; M51.36 Other intervertebral disc degeneration, lumbar region; M99.01 Segmental and somatic dysfunction of cervical region; M99.03 Segmental and somatic dysfunction of lumbar region; M99.02 Segmental and somatic dysfunction of thoracic region; F41.9 Anxiety disorder, unspecified; K76.0 Fatty (change of) liver, not elsewhere classified; Z86.010 Personal history of colon polyps; Z99.81 Dependence on supplemental oxygen; Z79.899 Other long term (current) drug therapy
CPT/HCPCS: 45385; 45380; 43239; 88305; 88341; 88342; J7120; J2405

== ENCOUNTER 2022-06-23 09:05 | Day surgery (SDC) | payer MEDICARE, BC, SELFPAY ==
[2022-06-23] VITALS (7 sets, daily range): BP systolic 99–122; BP diastolic 75–85; PULSE 69–79; RESP 16; TEMP 36.6–36.7; O2SAT 98–100; BMI 31.1
--- NOTE | 2022-06-23 09:28 | HP.PCM_ITS ---
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 Patient currently on pantoprazole 40 mg p.o. daily. Patient denies any heartburn reflux or abdominal pain. [facility] Medical History (Updated 06/23/22 @ 09:[address] Lilian Kimbrough MD) Anxiety Arthritis Asthma Back pain Carpal tunnel syndrome Chronic bronchiolitis Chronic cough COPD (chronic obstructive pulmonary disease) Depression Easy bruising Fatty liver GERD (gastroesophageal reflux disease) History of diverticulitis History of hiatal hernia History of stress test Hypertension Leg cramps On home oxygen therapy Osteoarthritis Prostate atrophy Prostate disease Smoker Wears dentures Wears glasses Wears hearing aid Home Medications cholecalciferol (vitamin D3) 50 mcg (2,000 unit) capsule 2,000 unit PO DAILY 11/24/17 [History Last Taken Unknown] multivitamin with folic acid 200 mcg chewable tablet (Adult Multivitamin Extra Vitamin D3) 200 mcg PO DAILY 11/24/17 [History Last Taken Unknown] tamsulosin 0.4 mg capsule 0.4 mg PO QHS 11/24/17 [History Last Taken Unknown] cetirizine 10 mg capsule (All Day Allergy (cetirizine)) 10 mg PO DAILY 01/26/21 [History Last Taken Unknown] albuterol sulfate 90 mcg/actuation aerosol inhaler 2 puff inhalation Q6H PRN SOB 12/11/21 [History Last Taken Unknown] finasteride 5 mg tablet 5 mg PO DAILY 12/11/21 [History Last Taken Unknown] sertraline 50 mg tablet 50 mg PO DAILY 12/11/21 [History Last Taken Unknown] amlodipine 5 mg tablet 5 mg PO QHS 05/05/22 [History Last Taken Unknown] atorvastatin 20 mg tablet 20 mg PO QHS 05/05/22 [History Last Taken Unknown] cyanocobalamin-liver extract tablet 1 tab PO QWEEK 05/05/22 [History Last Taken Unknown] docusate sodium 100 mg capsule (Stool Softener) 100 mg PO DAILY 05/05/22 [History Last Taken Unknown] fluticasone fur. 100 mcg-umeclid 62.5 mcg-vilant 25 mcg inhalat.powder (Trelegy Ellipta) 1 inh inhalation DAILY 05/05/22 [History Last Taken Unknown] guaifenesin 600 mg tablet, extended release 12 hr (Mucinex) 600 mg PO Q12H PRN Cough 05/05/22 [History Last Taken Unknown] pantoprazole 40 mg tablet,delayed release 40 mg PO DAILY #30 tabs 05/13/22 [Rx Last Taken Unknown] Allergy/AdvReac Type Severity Reaction Status Date / Time ibuprofen Allergy Mild shakes Verified 06/23/22 09:37 formoterol AdvReac Unknown unknown Verified 06/23/22 09:37 mometasone furoate AdvReac Unknown unknown Verified 06/23/22 09:37 Family History Other Alcohol abuse Anemia Arthritis Heart disease Kidney disease Myocardial infarction Respiratory disease Surgical History History of esophagogastroduodenoscopy (EGD) Hx of colonoscopy Hx of foot surgery Social History Smoking Status: Current every day smoker tobacco type: cigarettes Tobacco: How many years used: 40 alcohol intake: never substance use type: does not use what type of physical activity do you participate in: none Past Medical/Surgical History Planned Operation Planned Operative Procedure/s: EGD Previous Hospitalizations/Surgeries HX Hospitalizations: No Any Problems With Anesthesia: No You/Your Family Experience Fever (Hyperthermia) With Anes: No Cholinesterase deficiency: No Cardiovascular Hx Hypertension: Yes (CONTROLLED WITH MED) Respiratory Hx Sleep Apnea: No Hx Respiratory Tract Infection/Cold (presently): No Do You Snore Loudly (louder than talking or can be heard): Yes Do You Often Feel Tired/ Fatigued/ Sleepy Dring Daytime?: No Has Anyone Observed You Stop Breathing During Sleep?: No Result (for STOP score): Positive Smoking Status: Current every day smoker Neurological Does patient have nerve stimulator: No Miscellaneous Recent Exposure to Contagious Disease: No Allergies ibuprofen Allergy (Mild, Verified 06/23/22 09:37) shakes formoterol Adverse Reaction (Unknown, Verified 06/23/22 09:37) unknown mometasone furoate Adverse Reaction (Unknown, Verified 06/23/22 09:37) unknown Discharge Is Pt Admitted From a Shelter, or a Custodial: No After D/C, Where Do you Plan to Go: Return Home Physical Exam Const alert, oriented x3 and no apparent distress HEENT normocephalic and head/scalp atraumatic Resp normal respiratory effort Cardio regular rate GI soft to palpation and non-tender; Negative for non-distended Palpation: Negative for guarding Extremity no clubbing, cyanosis or edema Neuro CN's II-XII intact bilaterally Psych mental status grossly normal Assessment & Plan Assessment/Plan (1) GERD (gastroesophageal reflux disease): (2) Abnormal findings on esophagogastroduodenoscopy (EGD): Surgery Risks - Colonoscopy Risks Include but are not Limited To: Risks include but are not limited to: Bleeding, perforation requiring further surgery, inability to complete colonoscopy requiring barium enema.
[2022-06-23] MEDS: Lactated Ringers 1,000 ML 15 ML IV (09:36)
--- NOTE | 2022-06-23 10:15 | IMM_PTH ---
PATIENT: EVELINE REYNOLDS LOC: [facility] U#:[id number] AGE/SX: 66/M ROOM: RE06/23/[address]: Dr. Lilian Kimbrough MD : 1955 BED: DIS: 06/23/2022 SPEC #: [id number] RECD: 06/23/22 11:42 STATUS: JAYDON REQ #: [id number] DEJAH: 06/23/22 10:[address]: Lilian Kimbrough DEPT: IMMUNOHISTOCHEMISTRY RECD BY: Bindu Martins ENTERED: 06/23/22 11:43 SP TYPE: IMMUNO OTHR DR: Dr. Alexsander Casanova MD Tissues: A - Stomach, NOS Procedures: H Pylori (initial) PHYSICIAN & INSTITUTION [place] [id number] SPECIMEN INFORMATION: Tissue Source: A ? Antrum biopsy Clinical Info: GERD, abnormal findings on EGD Specimen Number: [id number] CPT code: 14041 METHODOLOGY: Deparaffinized sections of prefer/formalin-fixed tissue or PAP/DQ stained slides are incubated with monoclonal/polyclonal antibodies/oligonucleotide probes. Localization is made via biotin free immunoperoxidase method. Appropriate controls are performed and reacted as expected. Results on target cell population are indicated in the following table: RESULTS: ANTIBODY / CLONE RESULT Block A H Pylori (polyclonal) negative These tests were developed and their performance characteristics determined by [facility]. They may not have been cleared or approved by the U.S. Food and Drug Administration. The FDA has determined that such clearance or approval is not necessary. The above immunohistochemical/dualISH markers are ordered and reviewed by the Pathologist. INTERPRETATION: A. Antrum, biopsy: Negative for Helicobacter pylori organisms. AM:garcia 06/25/2022
--- NOTE | 2022-06-23 10:15 | EGD_PTH ---
PATIENT: EVELINE REYNOLDS LOC: [facility] U#:[id number] AGE/SX: 66/M ROOM: RE06/23/[address]: Dr. Lilian Kimbrough MD : 1955 BED: DIS: 06/23/2022 SPEC #: [id number] RECD: 06/23/22 11:19 STATUS: JAYDON LOUANN #: [id number] DEJAH: 06/23/22 10:[address]: Lilian Kimbrough DEPT: SURGICAL PATHOLOGY RECD BY: Meaghan Lara ENTERED: 06/23/22 11:29 SP TYPE: EGD BIOPSY OT DR: Dr. Alexsander Casanova MD Tissues: A - Gastric mucous membrane B - Esophagus, NOS Procedures: Special Stain Group II Surgery Specimen Level IV Alcian Blue/PAS (control) HEADER OPERATION: EGD ([facility]), biopsy PRE-OP DIAGNOSIS: GERD, abnormal findings on EGD TISSUE SUBMITTED: A ? Antrum biopsy for histo and H. pylori, B ? Gastroesophageal junction biopsy MICROSCOPIC DIAGNOSIS A. Antrum, biopsy: Mild gastritis. See microscopic description and comment. B. Gastroesophageal junction, biopsy: Fragments of gastric mucosa with chronic inflammation. Intestinal metaplasia (goblet cell metaplasia) not identified. See comment. SJ:rg 06/24/2022 COMMENT A. The results of immunohistochemistry for Helicobacter pylori will be reported separately ([id number]). B. Alcian blue/PAS stain with matched control is used in the evaluation of the specimen. MICROSCOPIC DESCRIPTION Slides are reviewed. A. The specimen shows fragments of gastric mucosa with chronic inflammatory cell infiltrates in the lamina propria consisting of lymphocytes and plasma cells, consistent with mild chronic gastritis. GROSS DESCRIPTION A - Received in fixative is one container labeled with the patient's name and designated antrum biopsy. The specimen consists of one irregular fragment of light connors soft tissue that measures 0.4 x 0.4 x 0.1 cm. The specimen is totally submitted in one cassette. B - Received in fixative is one container labeled with the patient's name and designated GE junction biopsy. The specimen consists of multiple irregular fragments of light connors soft tissue that in aggregate measure 1 x 0.4 x 0.1 cm. The specimen is totally submitted in one cassette. / ROSY:garcia 06/23/2022 TC:3 CPT: 14268 x2, 67330
--- NOTE | 2022-06-23 10:23 | OP.EGD_ITS ---
Patient Name: Kale Sheehan Procedure Date: 06/23/2022 9:56 AM Date of : 1955 Age: 66 Procedure: Upper GI endoscopy Indications: Heartburn, Possible dysplasia at GE junction on previous EGD Providers: Lilian Kimbrough MD Referring MD: Alexsander Casanova Patient Profile: This is a 66 year old male. Complications: No immediate complications. Procedure: Pre-Anesthesia Assessment: - Prior to the procedure, a History and Physical was performed, and patient medications and allergies were reviewed. The patient's tolerance of previous anesthesia was also reviewed. The risks and benefits of the procedure and the sedation options and risks were discussed with the patient. All questions were answered, and informed consent was obtained. Prior Anticoagulants: The patient has taken no previous anticoagulant or antiplatelet agents. ASA Grade Assessment: Per anesthesia. After reviewing the risks and benefits, the patient was deemed in satisfactory condition to undergo the procedure. After obtaining informed consent, the endoscope was passed under direct vision. Throughout the procedure, the patient's blood pressure, pulse, and oxygen saturations were monitored continuously. The Endoscope was introduced through the mouth, and advanced to the second part of duodenum. The upper GI endoscopy was accomplished without difficulty. The patient tolerated the procedure well. Scope In: 10:06:08 AM Scope Out: 10:11:05 AM Total Procedure Duration Time 0 hours 4 minutes 57 seconds Findings: The Z-line was irregular and was found 40 cm from the incisors. Biopsies were taken with a cold forceps for histology. Diffuse moderate inflammation characterized by erythema was found in the gastric antrum. Biopsies were taken with a cold forceps for histology. Biopsies were taken with a cold forceps for Helicobacter pylori cultures. The examined duodenum was normal. Impression: - Z-line irregular, 40 cm from the incisors. Biopsied. - Gastritis. Biopsied. - Normal examined duodenum. Recommendation: - Await pathology results. - Discharge patient to home. - Resume previous diet. - Continue present medications. - Use sucralfate tablets 1 gram PO QID for 1 month. Procedure Code(s): --- Professional --- 53858, Esophagogastroduodenoscopy, flexible, transoral; with biopsy, single or multiple Diagnosis Code(s): --- Professional --- K22.8, Other specified diseases of esophagus K29.70, Gastritis, unspecified, without bleeding R12, Heartburn CPT copyright 2017 [employer]. All rights reserved. The codes documented in this report are preliminary and upon research assistant review may be revised to meet current compliance requirements. MD Lilian Mcbride MD 06/23/2022 10:23:06 AM This report has been signed electronically. Number of Addenda: 0 Note Initiated On: 06/23/2022 9:56 AM
--- NOTE | 2022-06-23 10:24 | OP.CCLET_ITS ---
06/23/2022 Alexsander Casanova [address] [place] [address] Re : Upper GI endoscopy procedure for Kale Sheehan Dear Dr. Casanova This procedure was performed on Thursday, June 23, 2022. My impressions and recommendations are as follows: Impressions : - Z-line irregular, 40 cm from the incisors. Biopsied. - Gastritis. Biopsied. - Normal examined duodenum. Recommendations : - Await pathology results. - Discharge patient to home. - Resume previous diet. - Continue present medications. - Use sucralfate tablets 1 gram PO QID for 1 month. My findings are described in the full procedure note, which is enclosed. If I can be of further assistance, please feel free to contact me at Doctor phone number(s): , Work: . Sincerely, MD Lilian Mcbride MD 06/23/2022 10:23:06 AM This report has been signed electronically.
== END 2022-06-23 11:11 | disposition home or self-care (01) ==
LOC: EN 09:06 → AC 09:15
PROVIDERS: PCP Family Medicine; Referring Provider Family Medicine; Visit Provider Surgery
PROC: 0DJ08ZZ Inspection of Upper Intestinal Tract, Via Natural or Artificial Opening Endoscopic (ICD-10-PCS; CPT 43235; principal; 2022-06-23 10:10)
DX: K21.9 Gastro-esophageal reflux disease without esophagitis (principal); J44.9 Chronic obstructive pulmonary disease, unspecified; K29.50 Unspecified chronic gastritis without bleeding; R12 Heartburn; I10 Essential (primary) hypertension; F41.9 Anxiety disorder, unspecified; G47.10 Hypersomnia, unspecified; F32.A Depression, unspecified; K76.0 Fatty (change of) liver, not elsewhere classified; N42.89 Other specified disorders of prostate; N42.9 Disorder of prostate, unspecified; M19.90 Unspecified osteoarthritis, unspecified site; M51.36 Other intervertebral disc degeneration, lumbar region; E66.9 Obesity, unspecified; F17.210 Nicotine dependence, cigarettes, uncomplicated; Z79.899 Other long term (current) drug therapy; Z99.81 Dependence on supplemental oxygen; Z86.010 Personal history of colon polyps
CPT/HCPCS: 43239; 88305; 88313; 88342; J7120

== ENCOUNTER → 2022-07-14 | Outpatient (CLI) | payer MEDICARE, BC, SELFPAY ==
[2022-07-14 18:38] LABS: PSA,Total - Annual Screen 0.17 ng/mL (0.00-4.00)
== END | disposition home or self-care (01) ==
LOC: MFPLAB 16:08
PROVIDERS: PCP Family Medicine; Referring Provider Family Medicine; Visit Provider Nurse Practitioner Family
DX: Z12.5 Encounter for screening for malignant neoplasm of prostate (principal)
CPT/HCPCS: 36415; 84153; G0103

== ENCOUNTER → 2022-08-17 | Outpatient (CLI) | payer MEDICARE, BC, SELFPAY ==
--- NOTE | 2022-08-17 14:44 | CT_ITS ---
EXAM: CT CHEST, LUNG CANCER SCREENING WITHOUT INTRAVENOUS CONTRAST CLINICAL INDICATION: 1/2 ppd smoker and gt; 40 pack years TECHNIQUE: Helically acquired images were obtained of the chest without intravenous contrast using low dose (LDCT) lung cancer screening protocol. This CT exam was performed using one or more of the following dose reduction techniques: automated exposure control, adjustment of the mA and/or kV according to patient size, and/or use of iterative reconstruction technique. This report was created using [email or web address] report generation technology. COMPARISON: 07/07/2021 FINDINGS: LUNGS AND PLEURAL SPACES: There is scarring in the right lung apex which is stable. There are bilateral emphysematous changes within the upper lobes. There is no focal consolidation. No mass. No pleural effusion or thickening. No pneumothorax. HEART: There are minimal coronary artery calcifications present. Heart size is normal. No pericardial effusion. MEDIASTINUM: Unremarkable. No mediastinal or hilar adenopathy. Esophagus is unremarkable. No hiatal hernia. THYROID: Unremarkable. No thyroid lesions. BONES/JOINTS: Unremarkable. No suspicious lytic or blastic abnormality. VASCULATURE: Unremarkable. Thoracic aorta is non-dilated. LYMPH NODES: Unremarkable. No enlarged lymph nodes. CT/Low Dose CT Lung Screening IMPRESSION: 1. Lung-RADS score: 1 - Recommend continued annual screening with low-dose CT (LDCT) in 12 months. 2. Stable scarring in the right lung apex similar changes within both lungs. There has been no change from reference examination. Electronically Signed: Jayro Emery MD at 19:18 [facility] ,
== END | disposition home or self-care (01) ==
LOC: CT 14:44
PROVIDERS: PCP Family Medicine; Referring Provider Nurse Practitioner Acute Care; Visit Provider Nurse Practitioner Acute Care
DX: F17.210 Nicotine dependence, cigarettes, uncomplicated (principal)
CPT/HCPCS: 71271

== ENCOUNTER → 2022-10-13 | Outpatient (CLI) | payer MEDICARE, BC, SELFPAY ==
[2022-10-13 16:43] LABS: Bacteria 0 SEEN /hpf (None Seen); Mucous, Urine 0 SEEN /hpf (<or=2+); Red Blood Cells-Urine 0 SEEN /hpf (0-5); Squamous Epithelial Cells - UA 0 SEEN /hpf (0-5); White Blood Cells 0 SEEN /hpf (0-5)
[2022-10-13 17:57] LABS: Absolute Neutrophil Count 5.7 X10^3/uL (2.0-7.7); Basophil# 0.04 X10^3/uL; Basophil% 0.4 % (0-1); Eosinophil# 0.13 X10^3/uL; Eosinophils% 1.4 % (0-5); Hematocrit 41.3 % (40-54); Hemoglobin 13.6 g/dL (13.0-16.5); Lymphocyte % 22.6 % (19-41); Mean Corp Hgb Conc 32.9 g/dL (32-36); Mean Corpuscular Hgb 32.3 pg (27.0-32.0); Mean Corpuscular Volume 98.1 fL (80-94); Mean Platelet Vol. 11.7 fl (6.2-12.0); Monocyte# 1.25 X10^3/uL; Monocyte% 13.5 % (0-10); NRBC Flagged by Analyzer 0 % (0-5); Neutrophil % 61.5 % (47-70); Platelet Count 205 K/mm3 (150-450); RBC Distribution Width CV 12.6 % (11.6-14.6); RBC Distribution Width SD 45.1 fl (35.1-43.9); Red Blood Count 4.21 M/mm3 (4.6-6.2); White Blood Count 9.3 K/mm3 (4.4-11.0)
[2022-10-13 18:15] LABS: Color, Urine Yellow (Yellow); Glucose, Dipstick Normal (Normal); Ketone-Dipstick Negative (Negative); Leukocyte Esterase-Dipstick Negative /ul (Negative); Nitrite-Dipstick Negative (Negative); Occult Blood-Urine Negative /ul (Negative); Protein-Dipstick Negative (Negative); Urine Bilirubin Dipstick Negative (Negative); Urine Clarity Clear (Clear); Urine Urobilinogen Normal (Normal)
[2022-10-13 18:41] LABS: Hemoglobin A1c 5.8 % (3.8-5.6)
[2022-10-13 18:54] LABS: ALB/GLOB Ratio 1.3 RATIO (0.9-2.4); AST(SGOT) 14 U/L (15-37); Alanine Aminotransfer ALT/SGPT 38 U/L (16-61); Albumin, Serum 3.8 g/dL (3.2-5.0); Alkaline Phosphatase 90 U/L (45-117); Anion Gap 6 (5-15); BUN 19 mg/dL (7-18); BUN/Creat Ratio 16.5 RATIO (10-20); Chloride 104 mmol/L (98-107); Cholesterol 121 mg/dL (200); Creatinine, Serum 1.15 mg/dL (0.70-1.30); EST Glomerular Filtration Rate 68 mL/min (>60); Est Glom Filt Rate - Afr Amer 82 mL/min (>60); Globulin 2.9 g/dL (2.2-4.2); Glucose 88 mg/dL (74-106); High Density Lipoprotein 56 mg/dL; Potassium 4.3 mmol/L (3.5-5.1); Protein, Total 6.7 g/dL (6.4-8.2); Sodium Level 139 mmol/L (136-145); T4 Free Direct 0.95 ng/dL (0.76-1.46); Thyroid Stim Hormone (TSH) 1.85 uIU/mL (0.358-3.74); Triglycerides 89 mg/dL; Very Low Density Lipoprotein 18 mg/dL (5-40)
== END | disposition home or self-care (01) ==
LOC: MFPLAB 16:39
PROVIDERS: PCP Family Medicine; Visit Provider Family Medicine
DX: I10 Essential (primary) hypertension (principal); R73.02 Impaired glucose tolerance (oral); E03.8 Other specified hypothyroidism; E55.9 Vitamin D deficiency, unspecified
CPT/HCPCS: 36415; 80053; 80061; 81001; 82306; 83036; 84439; 84443; 85025

== ENCOUNTER → 2023-01-11 | Outpatient (CLI) | payer MEDICARE, BC, SELFPAY ==
[2023-01-11 16:27] LABS: Bacteria 0 SEEN /hpf (None Seen); Mucous, Urine 0 SEEN /hpf (<or=2+); Red Blood Cells-Urine 0 SEEN /hpf (0-5); Squamous Epithelial Cells - UA 0 SEEN /hpf (0-5); White Blood Cells 0 SEEN /hpf (0-5)
[2023-01-11 17:49] LABS: Absolute Lymphocyte Count 2.11 X10^3/uL (0.83-4.51); Basophil# 0.05 X10^3/uL; Basophil% 0.5 % (0-1); Eosinophil# 0.15 X10^3/uL; Eosinophils% 1.6 % (0-5); Hematocrit 45.4 % (40-54); Hemoglobin 15.3 g/dL (13.0-16.5); Lymphocyte # 2.11 X10^3/ul (0.83-4.51); Lymphocyte % 22.6 % (19-41); Mean Corp Hgb Conc 33.7 g/dL (32-36); Mean Corpuscular Hgb 32.8 pg (27.0-32.0); Mean Corpuscular Volume 97.2 fL (80-94); Mean Platelet Vol. 11.8 fl (6.2-12.0); Monocyte% 10.7 % (0-10); NRBC Flagged by Analyzer 0 % (0-5); Neutrophil # 6.01 X10^3/uL (2.7-7.7); Neutrophil % 64.3 % (47-70); Platelet Count 207 K/mm3 (150-450); RBC Distribution Width CV 12.2 % (11.6-14.6); RBC Distribution Width SD 43.7 fl (35.1-43.9); Red Blood Count 4.67 M/mm3 (4.6-6.2); White Blood Count 9.4 K/mm3 (4.4-11.0)
[2023-01-11 17:54] LABS: Color, Urine Yellow (Yellow); Glucose, Dipstick 250 mg/dl (Normal); Ketone-Dipstick Negative (Negative); Leukocyte Esterase-Dipstick Negative /ul (Negative); Nitrite-Dipstick Negative (Negative); Occult Blood-Urine 10 /ul (Negative); Protein-Dipstick Negative (Negative); Specific Gravity, Urine 1.015 (1.002-1.030); Urine Bilirubin Dipstick Negative (Negative); Urine Clarity Clear (Clear); Urine Urobilinogen Normal (Normal)
[2023-01-11 18:18] LABS: Vitamin D,25 Hydroxy 79.8 ng/mL
[2023-01-11 18:24] LABS: ALB/GLOB Ratio 1.1 RATIO (0.9-2.4); AST(SGOT) 21 U/L (15-37); Alanine Aminotransfer ALT/SGPT 27 U/L (16-61); Albumin, Serum 3.8 g/dL (3.2-5.0); Alkaline Phosphatase 102 U/L (45-117); Anion Gap 3 (5-15); BUN 7 mg/dL (7-18); Calcium,Total 9.4 mg/dL (8.5-10.1); Chloride 109 mmol/L (98-107); Cholesterol 107 mg/dL (200); Creatinine, Serum 0.99 mg/dL (0.70-1.30); EST Glomerular Filtration Rate 80 mL/min (>60); Est Glom Filt Rate - Afr Amer 97 mL/min (>60); Globulin 3.4 g/dL (2.2-4.2); Glucose 105 mg/dL (74-106); High Density Lipoprotein 42 mg/dL; Potassium 3.8 mmol/L (3.5-5.1); Protein, Total 7.2 g/dL (6.4-8.2); Sodium Level 138 mmol/L (136-145); T4 Free Direct 0.97 ng/dL (0.76-1.46); Thyroid Stim Hormone (TSH) 1.78 uIU/mL (0.358-3.74); Triglycerides 158 mg/dL; Very Low Density Lipoprotein 32 mg/dL (5-40)
[2023-01-11 18:37] LABS: Hemoglobin A1c 5.9 % (3.8-5.6)
== END | disposition home or self-care (01) ==
LOC: MFPLAB 16:25
PROVIDERS: PCP Family Medicine; Referring Provider Family Medicine; Visit Provider Family Medicine
DX: I10 Essential (primary) hypertension (principal); R73.02 Impaired glucose tolerance (oral); E78.5 Hyperlipidemia, unspecified; E03.8 Other specified hypothyroidism; E55.9 Vitamin D deficiency, unspecified
CPT/HCPCS: 36415; 80053; 80061; 81001; 82306; 83036; 84439; 84443; 85025

== ENCOUNTER → 2023-06-22 | Outpatient (CLI) | payer MEDICARE, BC, SELFPAY ==
[2023-06-22 14:13] LABS: Bacteria 0 SEEN /hpf (None Seen); Mucous, Urine 0 SEEN /hpf (<or=2+); Red Blood Cells-Urine 0 SEEN /hpf (0-5); Squamous Epithelial Cells - UA 0 SEEN /hpf (0-5); White Blood Cells 0 SEEN /hpf (0-5)
[2023-06-22 15:10] LABS: Absolute Lymphocyte Count 1.83 X10^3/uL (0.83-4.51); Absolute Neutrophil Count 5.1 X10^3/uL (2.0-7.7); Basophil# 0.04 X10^3/uL; Basophil% 0.5 % (0-1); Eosinophil# 0.15 X10^3/uL; Eosinophils% 1.9 % (0-5); Hemoglobin 14.6 g/dL (13.0-16.5); Lymphocyte # 1.83 X10^3/ul (0.83-4.51); Lymphocyte % 22.9 % (19-41); Mean Corp Hgb Conc 33.2 g/dL (32-36); Mean Corpuscular Hgb 32.2 pg (27.0-32.0); Mean Corpuscular Volume 97.1 fL (80-94); Mean Platelet Vol. 11.3 fl (6.2-12.0); Monocyte# 0.84 X10^3/uL; Monocyte% 10.5 % (0-10); NRBC Flagged by Analyzer 0 % (0-5); Neutrophil # 5.09 X10^3/uL (2.7-7.7); Neutrophil % 63.8 % (47-70); Platelet Count 224 K/mm3 (150-450); RBC Distribution Width SD 43.3 fl (35.1-43.9); Red Blood Count 4.53 M/mm3 (4.6-6.2)
[2023-06-22 15:11] LABS: Color, Urine Yellow (Yellow); Glucose, Dipstick Normal (Normal); Ketone-Dipstick Negative (Negative); Leukocyte Esterase-Dipstick Negative /ul (Negative); Nitrite-Dipstick Negative (Negative); Occult Blood-Urine Negative /ul (Negative); Protein-Dipstick Negative (Negative); Urine Bilirubin Dipstick Negative (Negative); Urine Clarity Clear (Clear); Urine Urobilinogen Normal (Normal)
[2023-06-22 15:50] LABS: Vitamin D,25 Hydroxy 62.5 ng/mL
[2023-06-22 15:56] LABS: ALB/GLOB Ratio 1.2 RATIO (0.9-2.4); AST(SGOT) 21 U/L (15-37); Alanine Aminotransfer ALT/SGPT 33 U/L (16-61); Albumin, Serum 3.9 g/dL (3.2-5.0); Alkaline Phosphatase 80 U/L (45-117); Anion Gap 4 (5-15); BUN 9 mg/dL (7-18); BUN/Creat Ratio 8.9 RATIO (10-20); Chloride 107 mmol/L (98-107); Cholesterol 92 mg/dL (200); Creatinine, Serum 1.01 mg/dL (0.70-1.30); EST Glomerular Filtration Rate 78 mL/min (>60); Est Glom Filt Rate - Afr Amer 95 mL/min (>60); Globulin 3.3 g/dL (2.2-4.2); Glucose 114 mg/dL (74-106); High Density Lipoprotein 49 mg/dL; Potassium 3.9 mmol/L (3.5-5.1); Protein, Total 7.2 g/dL (6.4-8.2); Sodium Level 138 mmol/L (136-145); T4 Free Direct 0.92 ng/dL (0.76-1.46); Thyroid Stim Hormone (TSH) 2.33 uIU/mL (0.358-3.74); Triglycerides 101 mg/dL; Very Low Density Lipoprotein 20 mg/dL (5-40)
== END | disposition home or self-care (01) ==
LOC: MFPLAB 14:09
PROVIDERS: PCP Family Medicine; Visit Provider Family Medicine
DX: I10 Essential (primary) hypertension (principal); R73.02 Impaired glucose tolerance (oral); E55.9 Vitamin D deficiency, unspecified; E03.8 Other specified hypothyroidism
CPT/HCPCS: 36415; 80053; 80061; 81001; 82306; 83036; 84439; 84443; 85025

== ENCOUNTER → 2023-08-19 | Outpatient (CLI) | payer MEDICARE, BC, SELFPAY ==
--- NOTE | 2023-08-19 12:42 | CT_ITS ---
EXAM: CT CHEST, LUNG CANCER SCREENING WITHOUT INTRAVENOUS CONTRAST CLINICAL INDICATION: smoker TECHNIQUE: Helically acquired images were obtained of the chest without intravenous contrast using low dose (LDCT) lung cancer screening protocol. This CT exam was performed using one or more of the following dose reduction techniques: automated exposure control, adjustment of the mA and/or kV according to patient size, and/or use of iterative reconstruction technique. COMPARISON: 08/17/2022 FINDINGS: LUNGS AND PLEURAL SPACES: Diffuse emphysematous changes seen within both lobes. There is scarring within the right lung apex which is stable. No mass. No pleural effusion or thickening. No pneumothorax. HEART: Unremarkable. Heart size is normal. No pericardial effusion. No significant coronary artery calcifications. MEDIASTINUM: Unremarkable. No mediastinal or hilar adenopathy. Esophagus is unremarkable. No hiatal hernia. THYROID: Unremarkable. No thyroid lesions. BONES/JOINTS: Unremarkable. No suspicious lytic or blastic abnormality. VASCULATURE: Unremarkable. Thoracic aorta is non-dilated. LYMPH NODES: Unremarkable. No enlarged lymph nodes. CT/Low Dose CT Lung Screening IMPRESSION: 1. No acute pulmonary abnormality. There has been no change from the reference examination. Lung-RADS score: 1S - Additional clinically significant or potentially clinically significant findings are described. Recommend continued annual screening with a low-dose CT (LDCT) in 12 months. 2. Stable emphysematous changes in the upper lobes with scarring in the right apex. Electronically Signed: Jayro Emery MD at 23:08 [facility] ,
== END | disposition home or self-care (01) ==
LOC: CT 12:40
PROVIDERS: PCP Family Medicine; Visit Provider Nurse Practitioner Acute Care
DX: F17.210 Nicotine dependence, cigarettes, uncomplicated (principal)
CPT/HCPCS: 71271

== ENCOUNTER → 2023-10-18 | Outpatient (CLI) | payer MEDICARE, MEDICAID, SELFPAY ==
[2023-10-18 13:17] LABS: Bacteria 0 SEEN /hpf (None Seen); Mucous, Urine 0 SEEN /hpf (<or=2+); Red Blood Cells-Urine 0 SEEN /hpf (0-5); Squamous Epithelial Cells - UA 0 SEEN /hpf (0-5); White Blood Cells 0 SEEN /hpf (0-5)
--- OUTSIDE RECORDS SUMMARY | 2023-10-18 13:33 | XMS RPT_ITS | CCD ---
Author Name Unknown Address [address] [place] [address] Organization [facility] Care Team Providers Care [employer] Kiln Supervisor Name Role Phone MADDIE CUEVA Admitting Unavailable TAWANDA MCKEON Attending Unavailable Cliff Pastor Primary Care Provider Allergies Allergy Classification Reported Allergen(s) Allergy Type Date of Onset Reaction(s) Facility (1 source) formoterol Drug Allergy 03-22-2019 Unknown [facility] Work Phone: (1 source) Ibuprofen Drug Allergy 03-22-2019 Intolerance [facility] Work Phone: (1 source) Mometasone Drug Allergy 03-22-2019 Unknown [facility] Work Phone: Medications Current Medications Medication Drug Class(es) Dates Sig (Normalized) Sig (Original) 60 actuat tiotropium 0.75211 mg/actuat inhalation spray (2 sources) Anticholinergic Start: 05-09-2020 End: 01-12-2023 tiotropium bromide (SPIRIVA RESPIMAT) 1.25 mcg/actuation mist Inhale 2 Puffs as instructed once daily. 1 Inhaler 11 01/12/2022 01/12/2023 Active Completed/Discontinued Medications Medication Drug Class(es) Dates Sig (Normalized) Sig (Original) [id number] 200 actuat albuterol 0.09 mg/actuat metered dose inhaler (1 source) beta2-Adrenergic Agonist albuterol HFA (PROVENTIL HFA, VENTOLIN HFA) 90 mcg/actuation inhaler Inhale 2 Puffs as instructed. 0 Active Problems Active Problems Problem Classification Problem Date Documented Da te Episodic/Chronic Asthma (1 source) Unspecified asthma with (acute) exacerbation; Translations: [Unspecified asthma with (acute) exacerbation] Onset: 12-31-2018 Chronic Chronic obstructive pulmonary disease and bronchiectasis (3 sources) Chronic obstructive pulmonary disease with (acute) exacerbation; Translations: [Acute exacerbation of chronic obstructive airways disease] Onset: 12-31-2018 12-31-2018 Chronic Other upper respiratory disease (1 source) Rhinitis; Translations: [Chronic rhinitis] Onset: 12-31-2018 12-31-2018 Chronic Substance-related disorders (1 source) Nicotine dependence; Translations: [Nicotine dependence, unspecified, uncomplicated] Onset: 12-31-2018 12-31-2018 Chronic Past or Other Problems Problem Classification Problem Date Documented Da te Episodic/Chronic Abdominal pain (1 source) Abdominal pain; Translations: [Unspecified abdominal pain] Onset: 12-31-2018 12-31-2018 Episodic Residual codes; unclassified (1 source) Current non-smoker ; Translations: [Other specified health status] Onset: 12-31-2018 12-31-2018 Episodic Results Test Name Value Interpretation Reference Range Facil ity Encounters Encounter Date Encounter Type Care Provider Facility Start: 01-11-2022 Altagracia Helms MD Work Phone: Pulmonary Medicine Plan of Treatment Date Care Activity Detail Author Start: 05-27-2022 Influenza vaccination INFLUENZA (Sea son Ended) [facility] Start: 12-30-2021 DIABETES SCREEN DIABETES SCREEN [facility] Start: 2021 ADVANCE DIRECTIVE DISCUSSION ADVANCE DIRECTIVE DISCUSSION [facility] Start: 2021 PNEUMOVAX AGE 65 AND OVER WITH 5YR LOOKBACK (#1) PNEUMOVAX AGE 65 AND OVER WITH 5YR LOOKBACK (#1) [facility] Start: 2011 PROSTATE CANCER SCRE ENING DISCUSSION PROSTATE CANCER SCREENING DISCUSSION [facility] Start: 2006 SHINGRIX VACCINE (1 of 2) SHINGRIX V ACCINE (1 of 2) [facility] Start: 2001 COLOGUARD (FIT-DNA) COLOGUARD (FIT-D NA) [facility] Start: 2001 Colonoscopy COLONOSCOPY [facility] Start: 2001 COLORECTAL CANCER SCREENING COLORECTAL CANCER SCREENING [facility] Start: [address] COLONOGRAPHY [facility] Start: 2001 FECAL OCCULT BLOOD FECAL OCCULT BLOO D [facility] Start: 2001 SIGMOIDOSCOPY SIGMOIDOSCOPY [facility] Start: 1991 LIPID SCREEN LIPID SCREEN [facility] Start: 1975 Urine microalbumin profile DTAP,TDAP ,TD (1 - Tdap) [facility] Start: 1974 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 FORTUNATO DISEASE VISIT ANNUAL PCP TEAM CHRONIC DISEASE VISIT [facility] Start: 1974 HEPATITIS C SCREENING HEPATITIS C SC REENING [facility] Start: 1974 HIV SCREENING HIV SCREENING [facility] Start: 1968 Adult depression scr eening assessment DEPRESSION SCREENING [facility] Start: 1961 COVID-19 VACCINE (1) COVID-19 VACCIN E (1) [facility] Start: 1956 ABDOMINAL AORTIC ANE URYSM SCREENING ABDOMINAL AORTIC ANEURYSM SCREENING [facility] Immunizations Immunization Date Immunization Notes Care Provider Fa cility 07-05-2018 influenza, seasonal, injectable Paulino Helms MD Work Phone: [facility] Work Phone: 03-22-2016 pneumococcal conjuga te vaccine, 13 valent Paulino Helms MD Work Phone: [facility] Work Phone: Payers Date Payer Category Payer Private Health Insurance [facility] [employer] [id number] 2021-Present [phone] [address] [place] [address] PPO [id number] 2018 Medicaid [employer] [id number] 2018-Present [phone] [address] [place] [address] Medicaid [id number] Social History Date Type Detail Facility Start: 1976 Tobacco smoking stat [email or web address] Smokes tobacco daily [facility] Start: 1976 History of tobacco use Cigarette Smo ker [facility] Start: 03-22-2019 Cigarettes smoked cu rrent (pack per day) - Reported 0.5 [facility] Start: 03-22-2019 Tobacco use and exposure Smoke less tobacco non-user [facility] Start: 04-28-2020 Alcohol intake 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 [facility] Start: 1955 Sex Assigned At Not on file [facility] Note 01-11-2022 Telephone Encounter - Dang Manriquez - 01/11/2022 4:11 PM EDTTelephone Encounter - Latisha Calvo - 01/11/2022 9:58 AM EDT Note Date & Type Note Facility 01-11-2022 Miscellaneous Notes Summary: Appointment Called PT to schedule follow-up, phone is not in service. Pharmacy faxed requesting the following refill. Pending Prescriptions Disp Refills SPIRIVA RESPIMAT 1.25 MCG/ACTUATION SOLUTION FOR INHALATION 4 g 11 Sig: Inhale 2 Puffs as instructed once daily. CHEMA: Yes Patient last appointment: 04/28/2020 No future appointment scheduled at this time. Patient Phone numbers: [phone] (home) Request is for script(s) to be escript to pharmacy. Latisha Calvo documented in this encounter [facility] Summary Purpose Family History No Family History Records FoundNo Family History Records FoundNo Family History Records Found Advance Directives Documents on File Type Date Recorded Patient Treatment Coordinator Expl anation Advance Directive(s) 12/30/2018 10:33 PM Advance Directive(s) 03/11/2018 10:34 PM Advance Directive(s) 02/08/2018 8:48 AM Advance Directive(s) 09/28/2017 7:05 PM Hospital Course Note HNO ID: [id number] Author: Graciela Mckeon Service: Hospital Medicine Author Type: Physician Type: Discharge Summary Filed: 12/31/2018 10:29 AM Note Text: DISCHARGE SUMMARY PATIENT NAME: Kale Sheehan Code Status: full code Highest Readmission Risk Score: 8 The 30 day readmissions risk score is derived from an internally validated risk model which evaluates patient level characteristics, utilization history, medication orders and lab results up until the day of discharge. Patients with a score of 40 or above are considered highest risk for readmission. Specific patient level drivers will be listed at the bottom of the summary. Admission Information Admission Information ADMIT DATE: 12/30/2018 DISCHARGE DATE: 12/31/18 MY DOCTORS AND MEDICAL TEAM: [facility] Doctor: Tawanda Mckeon Primary Care Provider: Cliff Pastor MD My Medical Team Members: Treatment Team: Attending Provider: Tawanda Mckeon MY CONDITION AT DISCHARGE: Stable REASON I WAS IN THE HOSPIT (more content not included)... Additional Source Comments (unrecognized sect ion and content) No Status Records FoundNo Status Records FoundNo Status Records Found INFORMATION SOURCE (unrecogn ized section and content) DATE CREATED AUTHOR AUTHOR'S ORGANIZ ATION 01/02/2019 [facility] DATE CREATED AUTHOR AUTHOR'S ORGANIZ ATION 10/29/2021 [facility] Source Comments (unrecognize d section and content) In the event this informatio n is protected by the Federal Confidentiality of Alcohol and Drug Abuse Patient Records regulations: The Federal rules restrict any use of the information to criminally investigate or prosecute any alcohol or drug abuse patient.[facility] Reason for Visit (unrecogniz ed section and content) Care Teams (unrecognized sec tion and content) FOR RECORDS PERTAINING TO PATIENTS WHO ARE OR HAVE BEEN ENROLLED IN A CHEMICAL DEPENDENCY/SUBSTANCEABUSE PROGRAM, SOME INFORMATION MAY BE OMITTED. This clinical summary was aggregated from multiple sources. Caution should be exercised in using it in the provision of clinical care. This summary normalizes information from multiple sources, and as a consequence, information in this document may materially change the coding, format and clinical context of patient data. In addition, data may be omitted in some cases. CLINICAL DECISIONS SHOULD BE BASED ON THE PRIMARY CLINICAL RECORDS. [facility] [employer] [facility]. provides no warranty or guarantee of the accuracy or completeness of information in this document.
[2023-10-18 15:52] LABS: Color, Urine Yellow (Yellow); Glucose, Dipstick Normal (Normal); Ketone-Dipstick Negative (Negative); Leukocyte Esterase-Dipstick Negative /ul (Negative); Nitrite-Dipstick Negative (Negative); Occult Blood-Urine Negative /ul (Negative); Protein-Dipstick Negative (Negative); Specific Gravity, Urine 1.005 (1.002-1.030); Urine Bilirubin Dipstick Negative (Negative); Urine Clarity Clear (Clear); Urine Urobilinogen Normal (Normal)
[2023-10-18 15:57] LABS: Absolute Lymphocyte Count 1.78 X10^3/uL (0.83-4.51); Absolute Neutrophil Count 4.5 X10^3/uL (2.0-7.7); Basophil# 0.06 X10^3/uL; Basophil% 0.8 % (0-1); Eosinophil# 0.38 X10^3/uL; Hematocrit 42.1 % (40-54); Lymphocyte # 1.78 X10^3/ul (0.83-4.51); Lymphocyte % 23.2 % (19-41); Mean Corp Hgb Conc 33.3 g/dL (32-36); Mean Corpuscular Hgb 31.9 pg (27.0-32.0); Mean Corpuscular Volume 95.9 fL (80-94); Mean Platelet Vol. 11.8 fl (6.2-12.0); Monocyte# 0.88 X10^3/uL; Monocyte% 11.5 % (0-10); NRBC Flagged by Analyzer 0 % (0-5); Neutrophil # 4.54 X10^3/uL (2.7-7.7); Neutrophil % 59.2 % (47-70); Platelet Count 209 K/mm3 (150-450); RBC Distribution Width CV 11.9 % (11.6-14.6); RBC Distribution Width SD 41.8 fl (35.1-43.9); Red Blood Count 4.39 M/mm3 (4.6-6.2); White Blood Count 7.7 K/mm3 (4.4-11.0)
[2023-10-18 16:12] LABS: Vitamin D,25 Hydroxy 61.1 ng/mL
[2023-10-18 16:51] LABS: Hemoglobin A1c 5.6 % (3.8-5.6)
[2023-10-18 16:52] LABS: ALB/GLOB Ratio 1.3 RATIO (0.9-2.4); AST(SGOT) 25 U/L (15-37); Alanine Aminotransfer ALT/SGPT 33 U/L (16-61); Albumin, Serum 3.9 g/dL (3.2-5.0); Alkaline Phosphatase 82 U/L (45-117); Anion Gap 6 (5-15); BUN 10 mg/dL (7-18); BUN/Creat Ratio 9.4 RATIO (10-20); Calcium,Total 9.4 mg/dL (8.5-10.1); Chloride 105 mmol/L (98-107); Cholesterol 94 mg/dL (200); Creatinine, Serum 1.06 mg/dL (0.70-1.30); EST Glomerular Filtration Rate 74 mL/min (>60); Est Glom Filt Rate - Afr Amer 90 mL/min (>60); Globulin 3.1 g/dL (2.2-4.2); Glucose 101 mg/dL (74-106); High Density Lipoprotein 46 mg/dL; Magnesium 2.4 mg/dL (1.6-2.6); Potassium 4.1 mmol/L (3.5-5.1); Sodium Level 137 mmol/L (136-145); T4 Free Direct 1.04 ng/dL (0.76-1.46); Thyroid Stim Hormone (TSH) 2.14 uIU/mL (0.358-3.74); Triglycerides 75 mg/dL; Very Low Density Lipoprotein 15 mg/dL (5-40)
== END | disposition home or self-care (01) ==
PROVIDERS: PCP Family Medicine; Referring Provider Family Medicine; Visit Provider Family Medicine
DX: R73.02 Impaired glucose tolerance (oral) (principal); E03.8 Other specified hypothyroidism; I10 Essential (primary) hypertension; E55.9 Vitamin D deficiency, unspecified
CPT/HCPCS: 36415; 80053; 80061; 81001; 82306; 83036; 83735; 84439; 84443; 85025

== ENCOUNTER → 2023-11-29 | Outpatient (CLI) | payer MEDICARE, MEDICAID, SELFPAY | END | disposition home or self-care (01) | PROVIDERS: PCP Family Medicine; Referring Provider Internal Medicine Critical Care Medicine; Visit Provider Internal Medicine Critical Care Medicine | DX: J44.9 Chronic obstructive pulmonary disease, unspecified (principal) | CPT/HCPCS: 94060; 94726; 94729 ==

== ENCOUNTER 2024-02-23 12:09 | Outpatient (CLI) | payer BC, SELFPAY ==
[2024-02-23 12:11] LABS: Bacteria 0 SEEN /hpf (None Seen); Mucous, Urine 0 SEEN /hpf (<or=2+); Red Blood Cells-Urine 0 SEEN /hpf (0-5); Squamous Epithelial Cells - UA 0 SEEN /hpf (0-5); White Blood Cells 0 SEEN /hpf (0-5)
[2024-02-23 15:35] LABS: Absolute Lymphocyte Count 1.66 X10^3/uL (0.83-4.51); Basophil# 0.03 X10^3/uL; Basophil% 0.4 % (0-1); Eosinophil# 0.09 X10^3/uL; Eosinophils% 1.3 % (0-5); Hematocrit 46.1 % (40-54); Hemoglobin 15.2 g/dL (13.0-16.5); Lymphocyte # 1.66 X10^3/ul (0.83-4.51); Lymphocyte % 24.6 % (19-41); Mean Corpuscular Hgb 32.3 pg (27.0-32.0); Mean Corpuscular Volume 98.1 fL (80-94); Mean Platelet Vol. 11.7 fl (6.2-12.0); Monocyte# 0.92 X10^3/uL; Monocyte% 13.6 % (0-10); NRBC Flagged by Analyzer 0 % (0-5); Neutrophil # 4.04 X10^3/uL (2.7-7.7); Neutrophil % 59.8 % (47-70); Platelet Count 225 K/mm3 (150-450); RBC Distribution Width CV 12.2 % (11.6-14.6); RBC Distribution Width SD 44.4 fl (35.1-43.9); White Blood Count 6.8 K/mm3 (4.4-11.0)
[2024-02-23 16:31] LABS: Hemoglobin A1c 5.6 % (3.8-5.6)
[2024-02-23 16:32] LABS: Color, Urine Yellow (Yellow); Glucose, Dipstick Normal (Normal); Ketone-Dipstick Negative (Negative); Leukocyte Esterase-Dipstick Negative /ul (Negative); Nitrite-Dipstick Negative (Negative); Occult Blood-Urine Negative /ul (Negative); Protein-Dipstick Negative (Negative); Specific Gravity, Urine 1.005 (1.002-1.030); Urine Bilirubin Dipstick Negative (Negative); Urine Clarity Clear (Clear); Urine Urobilinogen Normal (Normal); Urine pH 6.5 (5.0 - 8.0)
[2024-02-23 16:32] LABS: ALB/GLOB Ratio 1.2 RATIO (0.9-2.4); AST(SGOT) 20 U/L (15-37); Alanine Aminotransfer ALT/SGPT 29 U/L (16-61); Albumin, Serum 3.9 g/dL (3.2-5.0); Alkaline Phosphatase 66 U/L (45-117); Anion Gap 7 (5-15); BUN 17 mg/dL (7-18); BUN/Creat Ratio 15.3 RATIO (10-20); Calcium,Total 9.5 mg/dL (8.5-10.1); Chloride 104 mmol/L (98-107); Cholesterol 167 mg/dL (200); Creatinine, Serum 1.11 mg/dL (0.70-1.30); EST Glomerular Filtration Rate 70 mL/min (>60); Est Glom Filt Rate - Afr Amer 85 mL/min (>60); Globulin 3.3 g/dL (2.2-4.2); Glucose 89 mg/dL (74-106); High Density Lipoprotein 41 mg/dL; Magnesium 2.3 mg/dL (1.6-2.6); Potassium 4.4 mmol/L (3.5-5.1); Protein, Total 7.2 g/dL (6.4-8.2); Sodium Level 137 mmol/L (136-145); T4 Free Direct 0.95 ng/dL (0.76-1.46); Thyroid Stim Hormone (TSH) 2.04 uIU/mL (0.358-3.74); Triglycerides 161 mg/dL; Very Low Density Lipoprotein 32 mg/dL (5-40)
== END 2024-02-23 23:59 | disposition home or self-care (01) ==
PROVIDERS: PCP Family Medicine; Visit Provider Family Medicine
DX: E78.5 Hyperlipidemia, unspecified (principal); E55.9 Vitamin D deficiency, unspecified; R73.02 Impaired glucose tolerance (oral); I10 Essential (primary) hypertension
CPT/HCPCS: 36415; 80053; 80061; 81001; 82306; 83036; 83735; 84439; 84443; 85025

== ENCOUNTER → 2024-06-01 | Outpatient (CLI) | payer MEDICARE, SELFPAY ==
[2024-06-01 12:24] LABS: PSA,Total - Annual Screen 0.24 ng/mL (0.00-4.00)
== END | disposition home or self-care (01) ==
PROVIDERS: PCP Family Medicine; Visit Provider Family Medicine
DX: Z12.5 Encounter for screening for malignant neoplasm of prostate (principal)
CPT/HCPCS: 36415; 84153; G0103

== ENCOUNTER → 2024-08-30 | Outpatient (CLI) | payer MEDICARE, SELFPAY ==
[2024-08-30 13:54] LABS: Bacteria 0 SEEN /hpf (None Seen); Mucous, Urine 0 SEEN /hpf (<or=2+); Red Blood Cells-Urine 0 SEEN /hpf (0-5); Squamous Epithelial Cells - UA 0 SEEN /hpf (0-5); White Blood Cells 0 SEEN /hpf (0-5)
[2024-08-30 15:23] LABS: Absolute Lymphocyte Count 1.75 X10^3/uL (0.83-4.51); Absolute Neutrophil Count 5.5 X10^3/uL (2.0-7.7); Basophil# 0.04 X10^3/uL; Basophil% 0.5 % (0-1); Eosinophil# 0.08 X10^3/uL; Hematocrit 45.5 % (40-54); Hemoglobin 15.4 g/dL (13.0-16.5); Lymphocyte # 1.75 X10^3/ul (0.83-4.51); Lymphocyte % 21.1 % (19-41); Mean Corp Hgb Conc 33.8 g/dL (32-36); Mean Corpuscular Hgb 32.4 pg (27.0-32.0); Mean Corpuscular Volume 95.8 fL (80-94); Mean Platelet Vol. 11.6 fl (6.2-12.0); Monocyte# 0.89 X10^3/uL; Monocyte% 10.7 % (0-10); NRBC Flagged by Analyzer 0 % (0-5); Neutrophil # 5.48 X10^3/uL (2.7-7.7); Platelet Count 215 K/mm3 (150-450); RBC Distribution Width SD 42.3 fl (35.1-43.9); Red Blood Count 4.75 M/mm3 (4.6-6.2); White Blood Count 8.3 K/mm3 (4.4-11.0)
[2024-08-30 15:25] LABS: Color, Urine Yellow (Yellow); Glucose, Dipstick Normal (Normal); Ketone-Dipstick Negative (Negative); Leukocyte Esterase-Dipstick Negative /ul (Negative); Nitrite-Dipstick Negative (Negative); Occult Blood-Urine Negative /ul (Negative); Protein-Dipstick Negative (Negative); Specific Gravity, Urine 1.005 (1.002-1.030); Urine Bilirubin Dipstick Negative (Negative); Urine Clarity Clear (Clear); Urine Urobilinogen Normal (Normal)
[2024-08-30 18:39] LABS: ALB/GLOB Ratio 1.3 RATIO (0.9-2.4); AST(SGOT) 19 U/L (15-37); Alanine Aminotransfer ALT/SGPT 30 U/L (16-61); Albumin, Serum 4.3 g/dL (3.2-5.0); Alkaline Phosphatase 66 U/L (45-117); Anion Gap 6 (5-15); BUN 21 mg/dL (7-18); BUN/Creat Ratio 17.2 RATIO (10-20); Calcium,Total 9.4 mg/dL (8.5-10.1); Chloride 102 mmol/L (98-107); Cholesterol 131 mg/dL (200); Creatinine, Serum 1.22 mg/dL (0.70-1.30); EST Glomerular Filtration Rate 63 mL/min (>60); Est Glom Filt Rate - Afr Amer 76 mL/min (>60); Globulin 3.3 g/dL (2.2-4.2); Glucose 82 mg/dL (74-106); High Density Lipoprotein 48 mg/dL; Protein, Total 7.6 g/dL (6.4-8.2); Sodium Level 136 mmol/L (136-145); T4 Free Direct 0.97 ng/dL (0.76-1.46); Triglycerides 142 mg/dL; Very Low Density Lipoprotein 28 mg/dL (5-40)
[2024-08-31 01:35] LABS: Hemoglobin A1c 5.8 % (3.8-5.6)
[2024-08-31 09:13] LABS: Vitamin D,25 Hydroxy 80.8 ng/mL
== END | disposition home or self-care (01) ==
PROVIDERS: PCP Family Medicine; Referring Provider Family Medicine; Visit Provider Family Medicine
DX: E55.9 Vitamin D deficiency, unspecified (principal); E78.5 Hyperlipidemia, unspecified; E03.8 Other specified hypothyroidism; R73.02 Impaired glucose tolerance (oral)
CPT/HCPCS: 36415; 80053; 80061; 81001; 82306; 83036; 84439; 85025

== ENCOUNTER → 2024-09-07 | Outpatient (CLI) | payer MEDICARE, SELFPAY ==
--- NOTE | 2024-09-07 13:41 | US_ITS ---
STUDY: ULTRASOUND - URINARY BLADDER REASON FOR EXAM: Male, 68 years old. bph incomplete emptying TECHNIQUE: Ultrasound evaluation of the urinary bladder was performed with real-time and static aponte-scale imaging. COMPARISON: None. FINDINGS: There is no right UVJ calculus. There is a visualized right ureteral jet. There is no left UVJ calculus. There is a visualized left ureteral jet. The distended volume of the urinary bladder is 524.40 ml. The empty volume of the urinary bladder is 278.82 ml. The bladder wall is within normal limits. The bladder wall measures 2.3. There is no demonstrated bladder wall mass lesion. There are no demonstrated bladder calculi. US/Post Void Residual Bladder IMPRESSION: Normal distention of an anechoic bladder without wall thickening but there is abnormally large postvoid residual of almost [address] the patient risk for urinary reflux and UTIs. Electronically Signed: Valente Warren MD at 21:19 EST ,
== END | disposition home or self-care (01) ==
LOC: US 13:38
PROVIDERS: PCP Family Medicine; Referring Provider Family Medicine; Visit Provider Family Medicine
DX: N40.1 Benign prostatic hyperplasia with lower urinary tract symptoms (principal); R39.14 Feeling of incomplete bladder emptying
CPT/HCPCS: 51798

== ENCOUNTER → 2024-12-26 | Outpatient (CLI) | payer MEDICARE, SELFPAY ==
--- NOTE | 2024-12-26 11:26 | CT_ITS ---
PROCEDURE: LOW DOSE CT LUNG SCREENING 12/26/2024 REASON FOR EXAM: SMOKER Former smoker. Patient has smoked 3 packs per day for many years. TECHNIQUE: Low Dose CT Lung screening without contrast. Coronal and Sagittal reconstruction series were provided. One or more dose reduction techniques were used (e.g., Automated exposure control, adjustment of the mA and/or kV according to patient size, use of iterative reconstruction technique). REFERENCE LINK: [employer] Lung-RADS RADIATION DOSE SUMMARY: CTDlvol: 4.02 mGy DLP: 145.47 mGycm COMPARISON: Comparison is made with prior study dated August 19, 2023. FINDINGS: PULMONARY NODULES: (Only nodules >3mm are reported) Nodules described below are on series 1 unless otherwise specified. Pulmonary Nodules: No suspicious nodules are seen. Hardware:None Lymph Nodes:Small mediastinal lymph nodes. Heart and Vasculature:Minimal anterior pericardial thickening. Coronary Artery Calcifications: Present Lungs and Airways: Advanced emphysematous changes are present. Stable scarring in the right upper lobe. Pleura:Unremarkable Upper Abdomen:Unremarkable Bones:Degenerative changes of the thoracic spine. CT/Low Dose CT Lung Screening IMPRESSION: Coronary artery calcification (CAC) is is present Lung-RADS Category: 2 BENIGN (BASED ON IMAGING FEATURES OR INDOLENT BEHAVIOR). RECOMMEND 12-MONTH SCREENING LDCT. Other Significant Findings: None. Reading Location: [place] [address]
== END | disposition home or self-care (01) ==
LOC: CT 11:23
PROVIDERS: PCP Family Medicine; Referring Provider Nurse Practitioner Acute Care; Visit Provider Nurse Practitioner Acute Care
DX: F17.210 Nicotine dependence, cigarettes, uncomplicated (principal)
CPT/HCPCS: 71271

== ENCOUNTER → 2025-04-15 | Outpatient (CLI) | payer MEDICARE, SELFPAY | END | disposition home or self-care (01) | LOC: SL 12:42 | PROVIDERS: PCP Family Medicine; Referring Provider Nurse Practitioner Acute Care; Visit Provider Nurse Practitioner Acute Care | DX: R09.02 Hypoxemia (principal) | CPT/HCPCS: 94762 ==

== ENCOUNTER → 2025-06-13 | Outpatient (CLI) | payer MEDICARE, SELFPAY ==
[2025-06-13 14:10] LABS: Mucous, Urine 0 SEEN /hpf (<or=2+); Red Blood Cells-Urine 0 SEEN /hpf (0-5)
[2025-06-13 17:44] LABS: Hematocrit 41.6 % (40-54); Hemoglobin 14.1 g/dL (13.0-16.5); Immature Granulocytes Count 0.030 X10^3/uL (0.0-0.0); Mean Corp Hgb Conc 33.9 g/dL (32-36); Mean Corpuscular Volume 94.8 fL (80-94); Mean Platelet Vol. 12.0 fl (6.2-12.0); NRBC Flagged by Analyzer 0 % (0-5); Platelet Count 191 K/mm3 (150-450); RBC Distribution Width CV 11.9 % (11.6-14.6); RBC Distribution Width SD 41.3 fl (35.1-43.9); Red Blood Count 4.39 M/mm3 (4.6-6.2); White Blood Count 7.6 K/mm3 (4.4-11.0)
[2025-06-13 18:00] LABS: Color, Urine Straw (Yellow); Glucose, Dipstick Normal (Normal); Ketone-Dipstick Negative (Negative); Leukocyte Esterase-Dipstick Negative /ul (Negative); Nitrite-Dipstick Negative (Negative); Occult Blood-Urine Negative /ul (Negative); Protein-Dipstick Negative (Negative); Specific Gravity, Urine 1.010 (1.002-1.030); Urine Bilirubin Dipstick Negative (Negative)
[2025-06-13 18:27] LABS: AST(SGOT) 24 U/L (<=37); Alanine Aminotransfer ALT/SGPT 31 U/L (<=46); Albumin, Serum 4.3 g/dL (3.4-4.8); Alkaline Phosphatase 78 U/L (40-129); Anion Gap 12 (5-15); BUN 10 mg/dL (4-19); BUN/Creat Ratio 10.3 RATIO (10-20); Calcium,Total 9.6 mg/dL (7.6-11.0); Carbon Dioxide 24.4 mmol/L (21.0-32.0); Chloride 105 mmol/L (98-108); Cholesterol 117 mg/dL (<=200); Globulin 2.7 g/dL (2.2-4.2); Glucose 81 mg/dL (70-99); Low Density Lipoprotein Calc. 54 mg/dL; Magnesium 2.2 mg/dL (1.5-2.2); Potassium 4.1 mmol/L (3.3-5.1); Triglycerides 83 mg/dL; Very Low Density Lipoprotein 17 mg/dL (5-40); Vitamin D,25 Hydroxy 53.3 ng/mL (30-100); cholesterol:hdl ratio screen 2.51
[2025-06-13 18:36] LABS: Squamous Epithelial Cells - UA 0-5 SEEN /hpf (0-5)
== END | disposition home or self-care (01) ==
LOC: MFPLAB 14:08
PROVIDERS: PCP Family Medicine; Visit Provider Family Medicine
DX: I10 Essential (primary) hypertension (principal); E03.8 Other specified hypothyroidism; R73.02 Impaired glucose tolerance (oral); E55.9 Vitamin D deficiency, unspecified
CPT/HCPCS: 36415; 80053; 80061; 81001; 82306; 83036; 83735; 84439; 84443; 85025

== ENCOUNTER → 2025-06-20 | Outpatient (CLI) | payer MEDICARE, SELFPAY ==
--- NOTE | 2025-06-20 11:29 | US_ITS ---
PROCEDURE: POST VOID RESIDUAL BLADDER 06/20/2025 REASON FOR EXAM: URINARY RETENTION TECHNIQUE: Procedure Code: [id number] Modality: US Procedure: POST VOID RESIDUAL BLADDER COMPARISON: Postvoid residual bladder exam dated 09/07/2024 FINDINGS: The prevoid urinary bladder measures 12.3 x 9.7 x 10.5 cm. Bladder wall thickness measures 3 mm. Prevoid urinary bladder volume is 653 mL. Contour of the bladder wall is smooth. There are no intraluminal masses. There are no stones identified. There is no Sanchez catheter. There is no right UVJ calculus. There is a right ureteral jet. There is an no left UVJ calculus. There is a left ureteral jet. Postvoid urinary bladder measures 8.9 x 7.0 x 8.5 cm. Postvoid urinary bladder volume is 276 mL. US/Post Void Residual Bladder IMPRESSION: Normal appearance to the urinary bladder. There is an abnormally large postvoi d residual measuring 276 mL. This puts the patient increased risk for UTIs and urinary reflux. Reading Location: [id number]
--- OUTSIDE RECORDS SUMMARY | 2025-06-20 12:52 | XMS RPT_ITS | CCD ---
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 Marcelo Morgan Attending Provider Dr. Marcelo Morgan Referring Provider Dr. Marcelo Morgan Other Provider Dr. Salvador Herndon Primary Care Provider [phone] [place], [place] Referring Provider Unavailable Brett STOREKEEPER ENGINEERING, STOREKEEPER ENGINEERING-C Elissa Attending Provider [phone] Dr. Alexsander Casanova Primary Care Provider [phone] Brett CHO NP-C Elissa Referring Provider [phone] Dr. Alexsander Casanova Primary Care Provider [phone] Brett CHO, STOREKEEPER ENGINEERING-C Elissa Attending Provider [phone] Dr. Alexsander Casanova Referring Provider Dr. Lilian Kimbrough Attending Provider Dr. Lilian Kimbrough Other Provider Dr. Alexsander Casanova Primary Care Provider Dr. Alexsander Casanova Primary Care Provider Dr. Alexsander Casanova Referring Provider Dr. Lilian Kimbrough Attending Provider Dr. Lilian Kimbrough Other Provider Dr. Marcelo Morgan Attending Provider Dr. Marcelo Morgan Referring Provider Dr. Alexsander Casanova Primary Care Provider Dr. Alexsander Casanova Primary Care Provider Dr. Alexsander Casanova Referring Provider [phone] Dr. Marcelo Morgan Attending Provider Edilberto LONGORIA, Dr. Alexsander Levy Primary Care Provider [phone] Edilberto LONGORIA, Dr. Alexsander Levy Attending Provider Edilberto LONGORIA, Dr. Alexsander Levy Referring Provider Brett STOREKEEPER ENGINEERING-C, Elissa Attending Provider Brett STOREKEEPER ENGINEERING-C, Elissa Referring Provider Edilberto LONGORIA, Dr. Alexsander Levy Primary Care Provider Edilberto LONGORIA, Dr. Alexsander Levy Referring Provider Edilberto LONGORIA, Dr. Alexsander Levy Primary Care Provider [phone] [place] STOREKEEPER ENGINEERING-C, Elissa Attending Provider Brett STOREKEEPER ENGINEERING-C, Elissa Referring Provider Alexsander Casanova Referring Unavailable Schinner, Alexsander E Primary Care Unavailable Schinner, Alexsander E Attending Unavailable Schinner, Alexsander E Primary Care Unavailable SchtracinerAlexsander E Attending Unavailable Schinner, Alexsander E Primary Care Unavailable Schinner, Alexsander E Attending Unavailable Schinner, Alexsander E Referring Unavailable Schinner, Alexsander E Primary Care Unavailable Lilian Kimbrough Attending Unavailable [place] STOREKEEPER ENGINEERING, Elissa Attending Unavailable [place] STOREKEEPER ENGINEERING, Elissa Referring Unavailable Schinner, Alexsander E Primary Care Unavailable [place] STOREKEEPER ENGINEERING, Elissa Attending Unavailable [place] STOREKEEPER ENGINEERING, Elissa Referring Unavailable Schinner, Alexsander E Primary Care Unavailable Schinner, Alexsander E Referring Unavailable [place] STOREKEEPER ENGINEERING, Elissa Attending Unavailable Schinner, Alexsander E Primary Care Unavailable Schinner, Alexsander E Referring Unavailable Schinner, Alexsander E Primary Care Unavailable [place] STOREKEEPER ENGINEERING, Elissa Attending Unavailable Schinner, Alexsander E Referring Unavailable Schinner, Alexsander E Primary Care Unavailable Schinner, Alexsander E Attending Unavailable Allergies Allergy Classification Reported Allergen(s) Allergy Type Date of Onset Reaction(s) Facility (14 sources) formoterol Drug Allergy 03-22-2019 Unknown [facility] Work Phone: (14 sources) Ibuprofen Drug Allergy 03-22-2019 Intolerance [facility] Work Phone: (14 sources) Mometasone Drug Allergy 03-22-2019 Unknown [facility] Work Phone: (1 source) formoterol Drug Allergy 05-01-2025 [facility] Repository (1 source) Ibuprofen Drug Allergy 05-01-2025 [facility] Repository (1 source) Mometasone Drug Allergy 05-01-2025 [facility] Repository Medications Current Medications Medication Drug Class(es) Dates Sig (Normalized) Sig (Original) [id number] 200 actuat albuterol 0.09 mg/actuat metered dose inhaler (14 sources) beta2-Adrenergic Agonist Start: 12-11-2021 Albuterol Sulfate 90 mcg/actuation HFA aerosol inhaler Active 2 NMA INHALATION EVERY 6 HOURS as needed for SOB December 11, 2021 12:00am Start: 12-11-2021 take 1 puff(s) by in halation every six hours Albuterol Sulfate Active 2 PUFF INHALATION EVERY 6 HOURS December 10, 2021 11:00pm albuterol HFA (P ROVENTIL HFA, VENTOLIN HFA) 90 mcg/actuation inhaler Inhale 2 Puffs as instructed. 0 Active Comment on above: Inhale 2 Puffs as in structed. Fwzpkpmzsz-Gpkjcqfg-Ppa moterol (2 sources) Corticosteroid, beta2-Adrenergic Agonist Start: 025 Cizljmdmda-Dsryniha-Ai rmoterol (Breztri Aerosphere) 160-9-4.8 mcg/actuation HFA aerosol inhaler Active 2 NMA INHALATION TWICE A DAY January 02, 2025 12:00am busPIRone hydrochloride 10 mg oral tablet (1 source) Start: 018 take 10 mg by mouth twice daily Buspirone Active 10 MG PO TWICE A DAY November 24, 2017 1:00am celecoxib 100 mg oral capsule (1 source) Nonsteroidal Anti-inflammatory Drug Start: 018 take 100 mg by mouth twice daily Celecoxib Active 100 MG PO TWICE A DAY November 24, 2017 1:00am cholecalciferol 0.05 mg oral capsule (13 sources) Vitamin D Start: 018 take 1 capsule by mouth once daily Cholecalciferol (Vitamin D3) 2,000 unit capsule Active 2000 U PO DAILY November 24, 2017 1:00am Start: 11-24-2017 take 2000 [IU] by mouth once C holecalciferol (Vitamin D3) Active 2000 UNIT PO ONCE November 24, 2017 1:00am Cyanocobalamin-Liver Extract (8 sources) Start: 05-05-2022 take 1 tablet by mouth every week Cyanocobalamin-Liver Extract Active 1 TABLET PO EVERY WEEK May 04, 2022 11:00pm Start: 05-05-2022 take 1 tablet by jennifer th every week Cyanocobalamin-Liver Extract Active 1 TABLET PO EVERY WEEK May 05, 2022 12:00am Cyanocobalamin-Liver Extract (Vitamin F77-Panxx) Tablet (1 source) Start: 05-05-2022 take 1 tablet by mouth every week Cyanocobalamin-Liver Extract (Vitamin O05-Yigwj) Tablet Active 1 TABLET PO EVERY WEEK May 05, 2022 12:00am Cyanocobalamin-Liver Extract tablet (1 source) Start: 05-01-2025 Cyanocobalamin-Liver Extract tablet Active 1 {tbl} PO EVERY WEEK May 01, 2025 2:45pm docusate sodium 100 mg oral capsule (12 sources) Start: 05-05-2022 take 1 capsule by mouth once daily Docusate Sodium (Stool Softener) 100 mg Capsule Active 100 mg PO DAILY May 05, 2022 12:00am finasteride 5 mg oral tablet (14 sources) 5-alpha Reductase Inhibitor Start: 12-11-2021 take 1 tablet by mouth once daily Finasteride 5 mg tablet Active 5 mg PO DAILY December 11, 2021 12:00am Comment on above: Take 5 mg by mouth o nce daily. Fluticasone Propion-Salmeterol (1 source) Corticosteroi d, beta2-Adrener gic Agonist Start: 12-11-2021 Fluticasone Propion-Salmeterol (Wixela Inhub) 500-50 mcg/dose blister with device Active 1 INH INHALATION Q12H December 11, 2021 12:00am Multivitamin With Folic Acid (Adult Multivitamin Extra Vitd3) 200 mcg tablet,chewable (13 sources) Start: 11-24-2017 Multivitamin With Folic Acid (Adult Multivitamin Extra Vitd3) 200 mcg tablet,chewable Active 200 ug PO DAILY 0 November 24, 2017 1:00am Start: 11-24-2017 Multivitamin W ith Folic Acid (Adult Multivitamin Extra Vitd3) 200 mcg tablet,chewable Active 200 ug PO DAILY November 24, 2017 1:00am Start: 11-24-2017 take 1 tablet by jennifer th once daily Multivitamin With Folic Acid (Adult Multivitamin Extra Vitd3) 200 mcg tablet,chewable Active 200 MCG PO DAILY November 24, 2017 12:00am Start: 11-24-2017 take 1 tablet by jennifer th once daily Multivitamin With Folic Acid (Adult Multivitamin Extra Vitd3) 200 mcg tablet,chewable Active 200 MCG PO DAILY November 24, 2017 1:00am Start: 11-24-2017 Multivitamin W ith Folic Acid (Adult Multivitamin Extra Vitd3) 200 mcg tablet,chewable Active MCG PO November 24, 2017 1:00am nystatin [id number] unt/ml oral suspension (1 source) Polyene Antifungal Start: 12-11-2021 Nystatin Active 5 ML MUCOUS MEM THREE TIMES A DAY December 11, 2021 12:00am swish and swallow 5 cc three times per day for 10 days Roflumilast (2 sources) Phosphodiesterase 4 Inhibitor Start: 01-02-2025 take 1 tablet by mouth once daily Roflumilast (Daliresp) 500 mcg tablet Active 500 ug PO DAILY 25 08January 02, 2025 12:00am Hypoxia Hypoxemia tamsulosin hydrochloride 0.4 mg oral capsule (14 sources) alpha-Adrenergic Joss Start: 11-24-2017 take 1 capsule by mouth every twenty-four hours at bedtime Tamsulosin 0.4 mg capsule,extended release 24hr Active 0.4 mg PO AT BEDTIME November 24, 2017 1:00am Start: 11-24-2017 take 0.4 mg by mouth at bedtim e Tamsulosin Active 0.4 MG PO AT BEDTIME November 24, 2017 12:00am Comment on above: Take 0.4 mg by mouth . Completed/Discontinued Medications Medication Drug Class(es) Dates Sig (Normalized) Sig (Original) 120 actuat albuterol 0.1 mg/actuat / ipratropium bromide 0.02 mg/actuat inhalation spray (2 sources) Anticholinergic, beta2-Adrenergic Agonist Start: 03-22-2019 take 20-100 ug by inhalation four times daily ipratropium-albut xin (COMBIVENT RESPIMAT) 20-100 mcg/actuation mist Inhale 1 Puff as instructed four times daily. 0 03/22/2019 Active Start: 03-22-2019 take 3 mL by inhalat ion every six hours as needed ipratropium-albuterol (DUONEB) 0.5 mg-3 mg(2.5 mg base)/3 mL nebu Inhale 3 mL as instructed four times daily as needed. 100 Vial 5 03/22/2019 Active Comment on above: Inhale 1 Puff as ins tructed four times daily. Inhale 3 mL as instr ucted four times daily as needed. amLODIPine 5 mg oral tablet (13 sources) Dihydropyridine Calcium Channel Joss Start: 05-05-20 22 End: 03-19-20 24 take 1 tablet by mouth at bedtime Amlodipine 5 mg Tablet Discontinued 5 mg PO AT BEDTIME May 05, 2022 12:00am March 19, 2024 2:32pm take 1 tablet by mouth once katherine y amLODIPine (NORVASC) 5 mg tablet Take 5 mg by mouth once daily. 0 Active Comment on above: Take 5 mg by mouth o nce daily. atorvastatin 20 mg oral tablet (13 sources) HMG-CoA Reductase Inhibitor Start: 2 End: 4 take 1 tablet by mouth at bedtime Atorvastatin 20 mg Tablet Discontinued 20 mg PO AT BEDTIME May 05, 2022 12:00am March 19, 2024 2:32pm take 1 tablet by mouth once katherine y atorvastatin (LIPITOR) 20 mg tablet Take 20 mg by mouth once daily. 0 Active Comment on above: Take 20 mg by mouth once daily. Budesonide-Formoterol (20 sources) Corticosteroid, beta2-Adrenergic Agonist Start: 01-27-2021 End: 12-11-2021 Budesonide-Formoterol (Symbicort) 160-4.5 mcg/actuation HFA aerosol inhaler Discontinued 2 NMA INHALATION TWICE A DAY 10.2 3 January 27, 2021 10:43am December 11, 2021 2:02pm Start: 01-27-2021 End: 12-11-2021 Budesonide-Formoterol (Symbi jonathan) 160-4.5 mcg/actuation HFA aerosol inhaler Discontinued 2 NMA INHALATION TWICE A DAY 10.2 January 27, 2021 10:43am December 11, 2021 2:02pm Start: 01-27-2021 End: 12-11-2021 take 1 puff(s) by inhalation twice daily Budesonide-Formoterol (Symbicort) 160-4.5 mcg/actuation HFA aerosol inhaler Discontinued 2 PUFF INHALATION TWICE A DAY 10.2 January 27, 2021 9:43am December 11, 2021 1:02pm Start: 01-27-2021 End: 12-11-2021 take 1 puff(s) by inhalation twice daily Budesonide-Formoterol (Symbicort) 160-4.5 mcg/actuation HFA aerosol inhaler Discontinued 2 PUFF INHALATION TWICE A DAY 10.2 January 27, 2021 10:43am December 11, 2021 2:02pm Start: 11-18-2020 End: 01-27-2021 Budesonide-Formoterol (Symbi jonathan) 160-4.5 mcg/actuation HFA aerosol inhaler Discontinued 2 NMA INHALATION TWICE A DAY 10.2 3 November 18, 2020 1:00am January 27, 2021 10:43am Start: 11-18-2020 End: 01-27-2021 Budesonide-Formoterol (Symbi jonathan) 160-4.5 mcg/actuation HFA aerosol inhaler Discontinued 2 NMA INHALATION TWICE A DAY 10.2 November 18, 2020 1:00am January 27, 2021 10:43am Start: 11-18-2020 End: 01-27-2021 take 1 puff(s) by inhalation twice daily Budesonide-Formoterol (Symbicort) 160-4.5 mcg/actuation HFA aerosol inhaler Discontinued 2 PUFF INHALATION TWICE A DAY 10.2 November 18, 2020 12:00am January 27, 2021 9:43am Start: 11-18-2020 End: 01-27-2021 take 1 puff(s) by inhalation twice daily Budesonide-Formoterol (Symbicort) 160-4.5 mcg/actuation HFA aerosol inhaler Discontinued 2 PUFF INHALATION TWICE A DAY 10.2 November 18, 2020 1:00am January 27, 2021 10:43am Start: 11-17-2020 take 1 puff(s) by in halation twice daily SYMBICORT 160-4.5 mcg/actuation inhaler Inhale 1 Puff as instructed twice daily. 1 Inhaler 11 11/17/2020 Active Comment on above: Inhale 1 Puff as ins tructed twice daily. cetirizine hydrochloride 10 mg oral capsule (13 sources) Histamine-1 Receptor Antagonist Start: 01-27-20 End: 03-19-20 take 1 capsule by mouth once daily Cetirizine (All Day Allergy (Cetirizine)) 10 mg capsule Discontinued 10 mg PO DAILY January 26, 2021 12:00am March 19, 2024 2:33pm 12 hr cetirizine hydrochloride 5 mg / pseudoephedrine hydrochloride 120 mg extended release oral tablet (1 source) alpha-Adrenergic Agonist, Histamine-1 Receptor Antagonist take 1 tablet by mouth twice daily cetirizine-pseudoeph edrine (ZYRTEC-D) 5-120 mg per tablet Take 1 tablet by mouth twice daily. 0 Active Comment on above: Take 1 tablet by jennifer twice daily. Cyanocobalamin-Liver Extract Tablet (3 sources) Start: 05-05-20 End: 05-01-20 Cyanocobalamin-Liver Extract Tablet Discontinued 1 {tbl} PO EVERY WEEK May 05, 2022 12:00am May 01, 2025 2:46pm Start: 05-05-2022 Cyanocobalamin -Liver Extract Tablet Active 1 {tbl} PO EVERY WEEK May 05, 2022 12:00am fluticasone propionate 0.05 mg/actuat metered dose nasal spray (1 source) Corticosteroid Start: 03-22-2019 take 1 spray(s) nasal route once daily at bedtime as needed fluticasone (FLONASE) 50 mcg/actuation nasal spray Use 1 Donnelly in each nostril daily at bedtime. As needed. BEFORE LYING DOWN FOR BED 1 Bottle 0 03/22/2019 Active Comment on above: Use 1 Donnelly in each nostril daily at bedtime. As needed. BEFORE LYING DOWN FOR BED Fluticasone-Umecl idin-Vilanter (20 sources) Anticholinergic, Corticosteroid, beta2-Adrenergic Agonist Start: 08-31-2024 End: 01-02-2025 Fluticasone-Umecli din-Vilanter (Trelegy Ellipta) 100-62.5-25 mcg blister with device Discontinued 1 NMA INHALATION DAILY 60 August 31, 2024 11:35am January 02, 2025 8:07am Start: 08-31-2024 Fluticasone-Um eclidin-Vilanter (Trelegy Ellipta) 100-62.5-25 mcg blister with device Active 1 NMA INHALATION DAILY August 31, 2024 11:35am Start: 09-07-2023 End: 08-31-2024 Joyecewnrma-Elylcxzme-Zlydlu er (Trelegy Ellipta) 100-62.5-25 mcg blister with device Discontinued 1 NMA INHALATION DAILY 60 September 07, 2023 3:03pm August 31, 2024 11:35am Start: 09-07-2023 End: 08-31-2024 Thnyimzjxac-Eiyvmjdsn-Gnpdxb er (Trelegy Ellipta) 100-62.5-25 mcg blister with device Discontinued 1 NMA INHALATION DAILY September 07, 2023 3:03pm August 31, 2024 11:35am Start: 09-07-2023 Fluticasone-Um eclidin-Vilanter (Trelegy Ellipta) 100-62.5-25 mcg blister with device Active 1 INH INHALATION DAILY September 07, 2023 2:03pm Start: 05-05-2022 End: 09-07-2023 Eksjegoaijf-Xxkxutzyh-Dpqtay er (Trelegy Ellipta) 100-62.5-25 mcg Blister With Device Discontinued 1 NMA INHALATION DAILY May 05, 2022 12:00am September 07, 2023 3:04pm Start: 05-05-2022 End: 09-07-2023 Cnngrsqdznb-Xefyiiilw-Xplcea er (Trelegy Ellipta) 100-62.5-25 mcg Blister With Device Discontinued 1 INH INHALATION DAILY May 04, 2022 11:00pm September 07, 2023 2:04pm Start: 05-05-2022 Fluticasone-Um eclidin-Vilanter (Trelegy Ellipta) 100-62.5-25 mcg Blister With Device Active 1 INH INHALATION DAILY May 04, 2022 11:00pm Start: 05-05-2022 Fluticasone-Um eclidin-Vilanter (Trelegy Ellipta) 100-62.5-25 mcg Blister With Device Active 1 INH INHALATION DAILY May 05, 2022 12:00am 12 hr guaiFENesin 600 mg extended release oral tablet (15 sources) Start: 12-13-2023 End: 03-19-2024 take 2 tablets by mouth every twelve hours, then take 1 tablet by mouth every twelve hours Guaifenesin (Mucinex) 600 mg tablet extended release 12hr Discontinued 1200 mg PO Q12H 120 6 December 13, 2023 1:57pm March 19, 2024 2:36pm Cough Start: 05-05-2022 End: 12-13-2023 take 1 tablet by mouth every twelve hours as needed for cough, then take 1 tablet by mouth every twelve hours as needed for cough Guaifenesin (Mucinex) 600 mg Tablet Extended Release 12hr Discontinued 600 mg PO Q12H as needed for Cough May 05, 2022 12:00am December 13, 2023 1:57pm lansoprazole 15 mg delayed release oral capsule (12 sources) Proton Pump Inhibitor Start: 05-05-2022 End: 05-13-2022 take 2 capsules by mouth twice daily Lansoprazole 15 mg Capsule,Delayed Release(Dr/Ec) Discontinued 30 mg PO TWICE A DAY May 05, 2022 12:00am May 13, 2022 7:27am Start: 05-05-2022 End: 05-13-2022 take 30 mg by mouth twice daily Lansoprazole Discontinued 30 MG PO TWICE A DAY May 04, 2022 11:00pm May 13, 2022 6:27am levoFLOXacin 750 mg oral tablet (20 sources) Quinolone Antimicrobial Start: 01-27-2022 End: 02-03-2022 take 1 tablet by mouth every twenty-four hours Levofloxacin 750 mg tablet Discontinued 750 mg PO Q24H 7 7 0 January 27, 2022 12:00February 02, 2022 12:00am February 03, 2022 12:04am Start: 01-28-2021 End: 02-04-2021 take 1 tablet by mouth every twenty-four hours Levofloxacin 750 mg tablet Discontinued 750 mg PO Q24H 7 7 0 January 28, 2021 12:00am February 03, 2021 12:00am February 04, 2021 12:02am montelukast 10 mg oral tablet (3 sources) Leukotriene Receptor Antagonist Start: 12-13-2023 End: 03-19-2024 take 1 tablet by mouth once daily in the evening Montelukast 10 mg tablet Discontinued 10 mg PO EVERY EVENING 30 3 December 13, 2023 12:00am March 19, 2024 2:36pm pantoprazole 40 mg delayed release oral tablet (11 sources) Proton Pump Inhibitor Start: 05-13-2022 End: 03-19-2024 take 1 tablet by mouth once daily Pantoprazole 40 mg tablet,delayed release (DR/EC) Discontinued 40 mg PO DAILY 30 5 May 13, 2022 12:00am March 19, 2024 2:35pm predniSONE 20 mg oral tablet (19 sources) Start: 07-21-2023 End: 09-07-2023 take 3 tablets by mouth once daily at mealtime Prednisone 20 mg tablet Discontinued 60 mg PO daily July 21, 2023 12:00am September 07, 2023 2:22pm administer with food or milk Start: 07-21-2023 End: 09-07-2023 take 60 mg by mouth once daily at mealtime Prednisone Discontinued 60 MG PO daily July 20, 2023 11:00pm September 07, 2023 1:22pm administer with food or milk Start: 01-28-2021 End: 06-17-2021 Prednisone 10 mg tablet Discontinued 10 mg PO daily 30 0 January 28, 2021 12:00am June 17, 2021 2:18pm take 4 tabs for three days, then 3 tabs for three days, then 2 tabs for three days, then 1 tab for 3 days sertraline 50 mg oral tablet (13 sources) Serotonin Reuptake Inhibitor Start: 12-11-2021 End: 03-19-2024 take 1 tablet by mouth once daily Sertraline 50 mg tablet Discontinued 50 mg PO DAILY December 11, 2021 12:00am March 19, 2024 2:35pm sucralfate 1000 mg oral tablet (11 sources) Aluminum Complex Start: 06-23-2022 End: 03-19-2024 take 1 tablet by mouth four times daily 1 hour(s) before bedtime Sucralfate 1 gram tablet Discontinued 1 g PO 4 TIMES DAILY 120 0 June 23, 2022 12:00am March 19, 2024 2:35pm Take 1 hour before meals and at bedtime 60 actuat tiotropium 0.0025 mg/actuat inhalation spray (20 sources) Anticholinergic Start: 01-27-2021 End: 06-26-2021 take 2.5 ug by inhalation once daily Tiotropium Jackson (Spiriva Respimat) 2.5 mcg/actuation mist Discontinued 2 NMA INHALATION DAILY 4 January 27, 2021 10:43am June 26, 2021 5:25am Start: 01-27-2021 End: 06-26-2021 take 1 puff(s) by inhalation once daily Tiotropium Jackson (Spiriva Respimat) 2.5 mcg/actuation mist Discontinued 2 PUFF INHALATION DAILY January 27, 2021 9:43am June 26, 2021 4:25am Start: 11-18-2020 End: 01-27-2021 take 2.5 ug by inhalation once daily Tiotropium Jackson (Spiriva Respimat) 2.5 mcg/actuation mist Discontinued 2 NMA INHALATION DAILY 4 November 18, 2020 1:00am January 27, 2021 10:43am Start: 11-18-2020 End: 01-27-2021 take 2.5 ug by inhalation once daily Tiotropium Jackson (Spiriva Respimat) 2.5 mcg/actuation mist Discontinued 2 NMA INHALATION DAILY November 18, 2020 1:00am January 27, 2021 10:43am Start: 11-18-2020 End: 01-27-2021 take 1 puff(s) by inhalation once daily Tiotropium Jackson (Spiriva Respimat) 2.5 mcg/actuation mist Discontinued 2 PUFF INHALATION DAILY November 18, 2020 12:00am January 27, 2021 9:43am Start: 11-18-2020 End: 01-27-2021 take 1 puff(s) by inhalation once daily Tiotropium Jackson (Spiriva Respimat) 2.5 mcg/actuation mist Discontinued 2 PUFF INHALATION DAILY November 18, 2020 1:00am January 27, 2021 10:43am Start: 05-09-2020 End: 01-12-2023 tiotropium bromide (SPIRIVA RESPIMAT) 1.25 mcg/actuation mist Inhale 2 Puffs as instructed once daily. 1 Inhaler 11 01/12/2022 01/12/2023 Active Comment on above: Inhale 2 Puffs as in structed once daily. Problems Active Problems Problem Classification Problem Date Documented Da te Episodic/Chronic Abdominal hernia (15 sources) Umbilical hernia; Translations: [Umbilical hernia without obstruction or gangrene] Episodic Comment on above: About 1 cm, reducibl e, asymptomatic Asthma (19 sources) Unspecified asthma with (acute) exacerbation; Translations: [Asthma] Onset: 9 01-27-2022 Chronic Chronic obstructive pulmonary disease and bronchiectasis (20 sources) Chronic obstructive pulmonary disease with (acute) exacerbation; Translations: [Acute exacerbation of chronic obstructive airways disease] Onset: 9 12-31-2018 Chronic Comment on above: FEV1 50% Esophageal disorders (20 sources) Gastroesophageal reflux disease; Translations: [Gastro-esophageal reflux disease without esophagitis] Chronic Comment on above: CONTROLLED WITH MED Essential hypertension (1 source) Essential (primary) hypertension; Translations: [Essential (primary) hypertension] Onset: 5 Chronic Hyperplasia of prostate (2 sources) Benign prostatic hyperplasia with lower urinary tract symptoms; Translations: [Benign prostatic hyperplasia with lower urinary tract symptoms] Onset: 5 Chronic Mycoses (14 sources) Candidiasis of mouth; Translations: [Candidal stomatitis] Episodic Nutritional deficiencies (1 source) Vitamin D deficiency, unspecified; Translations: [Vitamin D deficiency, unspecified] Onset: 5 Chronic Other and unspecified benign neoplasm (12 sources) History of polyp of colon; Translations: [Personal history of colonic polyps] 03-31-2022 Episodic Other and unspecified benign neoplasm (7 sources) Personal history of colonic polyps; Translations: [Personal history of colonic polyps] Episodic Other bone disease and musculoskeletal deformities (20 sources) Segmental and somatic dysfunction; Translations: [Segmental and somatic dysfunction of cervical region] 01-02-2018 Episodic Other gastrointestinal disorders (11 sources) Gastrointestinal tract problem; Translations: [Other specified symptoms and signs involving the digestive system and abdomen] 06-23-2022 Episodic Comment on above: Focal indeterminate dysplasia at the GE junction Other gastrointestinal disorders (3 sources) Other specified symptoms and signs involving the digestive system and abdomen; Translations: [Other abnormal clinical findings] Episodic Other lower respiratory disease (13 sources) Nodule of lung; Translations: [Solitary pulmonary nodule] 06-17-2021 Episodic Other lower respiratory disease (5 sources) Hypoxia; Translations: [Hypoxemia] 01-02-2025 Episodic Other lower respiratory disease (1 source) Hypoxemia; Translations: [Hypoxemia] Onset: Episodic Other nutritional; endocrine; and metabolic disorders (13 sources) Obese class I; Translations: [Obesity, unspecified] 11-18-2020 Chronic Other nutritional; endocrine; and metabolic disorders (2 sources) Obesity, unspecified; Translations: [Obesity, unspecified] Chronic Other upper respiratory disease (1 source) Rhinitis; Translations: [Chronic rhinitis] Onset: 9 12-31-2018 Chronic Residual codes; unclassified (13 sources) Hypersomnia; Translations: [Hypersomnia, unspecified] 11-18-2020 Chronic Residual codes; unclassified (13 sources) Tobacco user; Translations: [Tobacco use] 06-17-2021 Episodic Residual codes; unclassified (2 sources) Tobacco use; Translations: [Tobacco use disorder] Episodic Spondylosis; intervertebral disc disorders; other back problems (20 sources) Degeneration of cervical intervertebral disc; Translations: [Other cervical disc degeneration, unspecified cervical region] 01-03-2018 Chronic Substance-related disorders (19 sources) Nicotine dependence; Translations: [Nicotine dependence, unspecified, uncomplicated] Onset: 9 12-31-2018 Chronic Comment on above: current 1/2 ppd > 40 pack years Past or Other Problems Problem Classification Problem Date Documented Da te Episodic/Chronic Abdominal pain (1 source) Abdominal pain; Translations: [Unspecified abdominal pain] Onset: 12-31-2018 12-31-2018 Episodic Residual codes; unclassified (1 source) Current non-smoker ; Translations: [Other specified health status] Onset: 12-31-2018 12-31-2018 Episodic Results Test Name Value Interpretation Reference Range Facility CBC W/Diff, Automatedon 09-1 Absolute Lymph 1.86 X10 3/uL Normal 0.83-4.51 [facility] Comment on above: Order Comment: Order Date: 08/30/24 Order Info: 0786-1 - CMP Order Info: [id number] - LIPID Order Info: 7 - T4F Performed By: #### L 506.1000, L506.0400, L501.9985, L100.0100, L500.4050, L500.4100 #### [facility] [address] [place], [address] Absolute Neut 4.4 X10 3/uL Normal 2.0-7.7 [facility] Comment on above: Order Comment: Order Date: 08/30/24 Order Info: 0786- - CMP Order Info: [id number] - LIPID Order Info: 3024-03 - T4F Performed By: #### L 506.1000, L506.0400, L501.9985, L100.0100, L500.4050, L500.4100 #### [facility] [address] [place], [address] Basophils/100 WBC (Bld) 0.5 % Normal 0-1 [facility] Comment on above: Order Comment: Order Date: 08/30/24 Order Info: 0786-1 - CMP Order Info: [id number] - LIPID Order Info: 3027 - T4F Performed By: #### L 506.1000, L506.0400, L501.9985, L100.0100, L500.4050, L500.4100 #### [facility] [address] [place], [address] Eosinophils/100 WBC (Bld) 3.8 % Normal 0-5 [facility] Comment on above: Order Comment: Order Date: 08/30/24 Order Info: 0786-1 - CMP Order Info: [id number] - LIPID Order Info: 3027 - T4F Performed By: #### L 506.1000, L506.0400, L501.9985, L100.0100, L500.4050, L500.4100 #### [facility] [address] [place], [address] Erythrocyte distribution width (RBC) [Ratio] 11.9 % Normal 11.6-14.6 [facility] Comment on above: Order Comment: Order Date: 08/30/24 Order Info: 0786-1 - CMP Order Info: [id number] - LIPID Order Info: 7 - T4F Performed By: #### L 506.1000, L506.0400, L501.9985, L100.0100, L500.4050, L500.4100 #### [facility] [address] [place], [place], [phone] (350) Hematocrit (Bld) [Volume fraction] 41.6 % Normal 40-54 [facility] Comment on above: Order Comment: Order Date: 08/30/24 Order Info: 0786 - CMP Order Info: [id number] - LIPID Order Info: 3024-03 - T4F Performed By: #### L 506.1000, L506.0400, L501.9985, L100.0100, L500.4050, L500.4100 #### [facility] [address] [place], [address] Hemoglobin (Bld) [Mass/Vol] 14.1 g/dL Normal 13.0-16.5 [facility] Comment on above: Order Comment: Order Date: 08/30/24 Order Info: 0786-1 - CMP Order Info: [id number] - LIPID Order Info: 3024-03 - T4F Performed By: #### L 506.1000, L506.0400, L501.9985, L100.0100, L500.4050, L500.4100 #### [facility] [address] [place], [address] IG% 0.400 Normal 0.0-0.9 [facility] Comment on above: Order Comment: Order Date: 08/30/24 Order Info: 07-1 - CMP Order Info: - LIPID Order Info: 3024-03 - T4F Result Comment: IG% - Immature Granulocytes (promyelocytes, myelocytes and metamyelocytes) > 1% indicates that a LEFT SHIFT is Present. Performed By: #### L 506.1000, L506.0400, L501.9985, L100.0100, L500.4050, L500.4100 #### [facility] [address] [place], [address] Lymphocytes/100 WBC (Bld) 24.6 % Normal 19-41 [facility] Comment on above: Order Comment: Order Date: 08/30/24 Order Info: 785-09 - CMP Order Info: - LIPID Order Info: 3024-03 - T4F Performed By: #### L 506.1000, L506.0400, L501.9985, L100.0100, L500.4050, L500.4100 #### [facility] [address] [place], [address] MCH (RBC) [Entitic mass] 32.1 pg High 27.0-32.0 [facility] Comment on above: Order Comment: Order Date: 08/30/24 Order Info: 07 - CMP Order Info: [id number] - LIPID Order Info: 3024-03 T4F Performed By: #### L 506.1000, L506.0400, L501.9985, L100.0100, L500.4050, L500.4100 #### [facility] [address] [place], [address] MCHC (RBC) [Mass/Vol] 33.9 g/dL Normal 32-36 [facility] Comment on above: Order Comment: Order Date: 08/30/24 Order Info: 07861 - CMP Order Info: [id number] - LIPID Order Info: 3024-03 - T4F Performed By: #### L 506.1000, L506.0400, L501.9985, L100.0100, L500.4050, L500.4100 #### [facility] [address] [place], [address] MCV (RBC) [Entitic vol] 94.8 fL High 80-94 [facility] Comment on above: Order Comment: Order Date: 08/30/24 Order Info: 0786-1 - CMP Order Info: [id number] - LIPID Order Info: 302-7 - T4F Performed By: #### L 506.1000, L506.0400, L501.9985, L100.0100, L500.4050, L500.4100 #### [facility] [address] [place], [address] Monocytes/100 WBC (Bld) 12.5 % High 0-10 [facility] Comment on above: Order Comment: Order Date: 08/30/24 Order Info: 0786-1 - CMP Order Info: [id number] - LIPID Order Info: 3027 - T4F Performed By: #### L 506.1000, L506.0400, L501.9985, L100.0100, L500.4050, L500.4100 #### [facility] [address] [place], [address] Neutrophils/100 WBC (Bld) 58.2 % Normal 47-70 [facility] Comment on above: Order Comment: Order Date: 08/30/24 Order Info: 0786-1 - CMP Order Info: [id number] - LIPID Order Info: 3024-7 - T4F Performed By: #### L 506.1000, L506.0400, L501.9985, L100.0100, L500.4050, L500.4100 #### [facility] [address] [place], [address] Nucleated RBC (Bld) [#/Vol] 0 10*3/uL Normal 0-5 [facility] Comment on above: Order Comment: Order Date: 08/30/24 Order Info: 0786-1 - CMP Order Info: [id number] - LIPID Order Info: 3024-7 - T4F Performed By: #### L 506.1000, L506.0400, L501.9985, L100.0100, L500.4050, L500.4100 #### [facility] [address] [place], [address] Platelet mean volume (Bld) [Entitic vol] 12.0 fL Normal 6.2-12.0 [facility] Comment on above: Order Comment: Order Date: 08/30/24 Order Info: 785-1 - CMP Order Info: [id number] - LIPID Order Info: 3023-7 - T4F Performed By: #### L 506.1000, L506.0400, L501.9985, L100.0100, L500.4050, L500.4100 #### [facility] [address] [place], [address] Platelets (Bld) [#/Vol] 191 10*3/uL Normal 150-450 [facility] Comment on above: Order Comment: Order Date: 08/30/24 Order Info: 0786-1 - CMP Order Info: [id number] - LIPID Order Info: 3024-7 - T4F Performed By: #### L 506.1000, L506.0400, L501.9985, L100.0100, L500.4050, L500.4100 #### [facility] [address] [place], [address] RBC (Bld) [#/Vol] 4.39 10*6/uL Low 4.6-6.2 [facility] Comment on above: Order Comment: Order Date: 08/30/24 Order Info: 0786-1 - CMP Order Info: [id number] - LIPID Order Info: 3024-7 - T4F Performed By: #### L 506.1000, L506.0400, L501.9985, L100.0100, L500.4050, L500.4100 #### [facility] [address] [place], [address] RDW SD 41.3 fl Normal 35.1-43.9 [facility] Comment on above: Order Comment: Order Date: 08/30/24 Order Info: 0786-1 - CMP Order Info: [id number] - LIPID Order Info: 3024-03 - T4F Performed By: #### L 506.1000, L506.0400, L501.9985, L100.0100, L500.4050, L500.4100 #### [facility] [address] [place], [place], [id number] WBC (Bld) [#/Vol] 7.6 10*3/uL Normal 4.4-11.0 [facility] Comment on above: Order Comment: Order Date: 08/30/24 Order Info: 0786- - CMP Order Info: [id number] - LIPID Order Info: 3024-03 - T4F Performed By: #### L 506.1000, L506.0400, L501.9985, L100.0100, L500.4050, L500.4100 #### [facility] [address] [place], [place], [id number] Comprehensive Metabolic Prof azon 06-13-2025 Albumin [Mass/Vol] 4.3 g/dL Normal 3.4-4.8 [facility] Comment on above: Order Comment: Order Date: 08/30/24 Order Info: 0786-1 - CMP Order Info: [id number] - LIPID Order Info: 7 - T4F Performed By: #### L 506.1000, L506.0400, L501.9985, L100.0100, L500.4050, L500.4100 #### [facility] [address] [place], [address] Albumin/Globulin [Mass ratio] 1.6 {ratio} Normal 0.9-2.4 [facility] Comment on above: Order Comment: Order Date: 08/30/24 Order Info: 86-1 - CMP Order Info: [id number] - LIPID Order Info: 3024-03 - T4F Performed By: #### L 506.1000, L506.0400, L501.9985, L100.0100, L500.4050, L500.4100 #### [facility] [address] [place], [place], [address] ALK PHOS 78 U/L Normal 40-129 [facility] Comment on above: Order Comment: Order Date: 08/30/24 Order Info: 86-1 - CMP Order Info: [id number] - LIPID Order Info: 3024-03 - T4F Performed By: #### L 506.1000, L506.0400, L501.9985, L100.0100, L500.4050, L500.4100 #### [facility] [address] [place], [place], [address] ALT [Catalytic activity/Vol] 31 U/L Normal <=46 [facility] Comment on above: Order Comment: Order Date: 08/30/24 Order Info: 0786-1 - CMP Order Info: [id number] - LIPID Order Info: 3024-03 - T4F Performed By: #### L 506.1000, L506.0400, L501.9985, L100.0100, L500.4050, L500.4100 #### [facility] [address] [place], [address] AST [Catalytic activity/Vol] 24 U/L Normal <=37 [facility] Comment on above: Order Comment: Order Date: 08/30/24 Order Info: 0786-1 - CMP Order Info: [id number] - LIPID Order Info: 7 - T4F Performed By: #### L 506.1000, L506.0400, L501.9985, L100.0100, L500.4050, L500.4100 #### [facility] [address] [place], [address] Bilirubin [Mass/Vol] 0.45 mg/dL Normal 0.00-1.[address] [facility] Comment on above: Order Comment: Order Date: 08/30/24 Order Info: 785-1 - CMP Order Info: [id number] - LIPID Order Info: 3024-03 - T4F Performed By: #### L 506.1000, L506.0400, L501.9985, L100.0100, L500.4050, L500.4100 #### [facility] [address] [place], [address] BUN/CRE 10.3 RATIO Normal 10-20 [facility] Comment on above: Order Comment: Order Date: 08/30/24 Order Info: 785-09 - CMP Order Info: - LIPID Order Info: 3024-03 - T4F Performed By: #### L 506.1000, L506.0400, L501.9985, L100.0100, L500.4050, L500.4100 #### [facility] [address] [place], [address] Calcium [Mass/Vol] 9.6 mg/dL Normal 7.6-11.0 [facility] Comment on above: Order Comment: Order Date: 08/30/24 Order Info: 785-09 - CMP Order Info: [id number] - LIPID Order Info: 3024-03 - T4F Performed By: #### L 506.1000, L506.0400, L501.9985, L100.0100, L500.4050, L500.4100 #### [facility] [address] [place], [address] Chloride [Moles/Vol] 105 mmol/L Normal 98-[address] [facility] Comment on above: Order Comment: Order Date: 08/30/24 Order Info: 785-1 - CMP Order Info: [id number] - LIPID Order Info: 3024-03 - T4F Performed By: #### L 506.1000, L506.0400, L501.9985, L100.0100, L500.4050, L500.4100 #### [facility] [address] [place], [address] CO2 [Moles/Vol] 24.4 mmol/L Normal 21.0-32.0 [facility] Comment on above: Order Comment: Order Date: 08/30/24 Order Info: 0786-1 - CMP Order Info: [id number] - LIPID Order Info: 3024-7 - T4F Performed By: #### L 506.1000, L506.0400, L501.9985, L100.0100, L500.4050, L500.4100 #### [facility] [address] [place], [place], [address] (491) Creatinine [Mass/Vol] 1.00 mg/dL Normal 0.70-1.20 [facility] Comment on above: Order Comment: Order Date: 08/30/24 Order Info: 0786-1 - CMP Order Info: [id number] - LIPID Order Info: 3024-7 - T4F Performed By: #### L 506.1000, L506.0400, L501.9985, L100.0100, L500.4050, L500.4100 #### [facility] [address] [place], [place], [address] (561) GAP 12 Normal 5-15 [facility] Comment on above: Order Comment: Order Date: 08/30/24 Order Info: 0786-1 - CMP Order Info: [id number] - LIPID Order Info: 3024-7 - T4F Performed By: #### L 506.1000, L506.0400, L501.9985, L100.0100, L500.4050, L500.4100 #### [facility] [address] [place], [address] GFR/1.73 sq M.predicted among non-blacks MDRD (S/P/Bld) [Vol rate/Area] 82 mL/min/{1.73_m2} Normal >60 [facility] Comment on above: Order Comment: Order Date: 08/30/24 Order Info: 86-1 - CMP Order Info: [id number] - LIPID Order Info: 3024-03 - T4F Result Comment: mL/m in/1.73m2 CKD-EPI Creatinine Equation (2020) Performed By: #### L 506.1000, L506.0400, L501.9985, L100.0100, L500.4050, L500.4100 #### [facility] [address] [place], [address] Globulin (S) [Mass/Vol] 2.7 g/dL Normal 2.2-4.2 [facility] Comment on above: Order Comment: Order Date: 08/30/24 Order Info: 785- - CMP Order Info: - LIPID Order Info: 3024-03 - T4F Performed By: #### L 506.1000, L506.0400, L501.9985, L100.0100, L500.4050, L500.4100 #### [facility] [address] [place], [address] Glucose [Mass/Vol] 81 mg/dL Normal 70-99 [facility] Comment on above: Order Comment: Order Date: 08/30/24 Order Info: 785-09 - CMP Order Info: [id number] - LIPID Order Info: 3024-03 - T4F Performed By: #### L 506.1000, L506.0400, L501.9985, L100.0100, L500.4050, L500.4100 #### [facility] [address] [place], [address] Potassium [Moles/Vol] 4.1 mmol/L Normal 3.3-5.1 [facility] Comment on above: Order Comment: Order Date: 08/30/24 Order Info: 0786-1 - CMP Order Info: [id number] - LIPID Order Info: 3024-03 - T4F Performed By: #### L 506.1000, L506.0400, L501.9985, L100.0100, L500.4050, L500.4100 #### [facility] [address] [place], [address] Sodium [Moles/Vol] 141 mmol/L Normal 133-145 [facility] Comment on above: Order Comment: Order Date: 08/30/24 Order Info: 0786-1 - CMP Order Info: [id number] - LIPID Order Info: 302-7 - T4F Performed By: #### L 506.1000, L506.0400, L501.9985, L100.0100, L500.4050, L500.4100 #### [facility] [address] [place], [address] T PROT 7.1 g/dL Normal 5.9-8.4 [facility] Comment on above: Order Comment: Order Date: 08/30/24 Order Info: 0786-1 - CMP Order Info: [id number] - LIPID Order Info: 3027 - T4F Performed By: #### L 506.1000, L506.0400, L501.9985, L100.0100, L500.4050, L500.4100 #### [facility] [address] [place], [address] Urea nitrogen [Mass/Vol] 10 mg/dL Normal 4-19 [facility] Comment on above: Order Comment: Order Date: 08/30/24 Order Info: 0786-1 - CMP Order Info: [id number] - LIPID Order Info: 3024-7 - T4F Performed By: #### L 506.1000, L506.0400, L501.9985, L100.0100, L500.4050, L500.4100 #### [facility] [address] [place], [address] Hemoglobin A1con 06-13-2025 HbA1c (Bld) [Mass fraction] 6.0 % High <=5.6 [facility] Comment on above: Order Comment: Order Date: 08/30/24 Order Info: 0786-1 - CMP Order Info: [id number] - LIPID Order Info: 3027 - T4 Result Comment: Norm al < 5.7 % Prediabetic 5.7 - 6.4 % Diabetic >or= 6.5 % Please note range changes. Performed By: #### L 506.1000, L506.0400, L501.9985, L100.0100, L500.4050, L500.4100 #### [facility] [address] [place], [address] Lipid Profileon 06-13-2025 CHOL:HDL 2.51 Normal [facility] Comment on above: Order Comment: Order Date: 08/30/24 Order Info: 0786-1 - CMP Order Info: [id number] - LIPID Order Info: 30247 - T4F Performed By: #### L 506.1000, L506.0400, L501.9985, L100.0100, L500.4050, L500.4100 #### [facility] [address] [place], [address] Cholesterol [Mass/Vol] 117 mg/dL Normal <=200 [facility] Comment on above: Order Comment: Order Date: 08/30/24 Order Info: 0786-1 - CMP Order Info: [id number] - LIPID Order Info: 30247 - T4F Result Comment: Chol esterol level, Desirable <200 mg/dL Borderline high cholesterol 200-239 mg/dL High cholesterol >=240 mg/dL Recommendations of the NCEP Adult Treatment Panel for the following risk-cutoff thresholds for the [place] P[place] population. Performed By: #### L 506.1000, L506.0400, L501.9985, L100.0100, L500.4050, L500.4100 #### [facility] [address] [place], [address] Cholesterol in HDL [Mass/Vol] 47 mg/dL Normal [facility] Comment on above: Order Comment: Order Date: 08/30/24 Order Info: 0786-1 - CMP Order Info: [id number] - LIPID Order Info: 3024-7 - T4F Result Comment: Katerina onal Cholesterol Education Program (NCEP) guidelines: <40 mg/dL: Low HDL-cholesterol (major risk factor for CHD) >= 60 mg/dL: High HDL-cholesterol (negative risk factor for CHD) HDL-cholesterol is affected by a number of factors, e.g. smoking, exercise, hormones, sex and age. Performed By: #### L 506.1000, L506.0400, L501.9985, L100.0100, L500.4050, L500.4100 #### [facility] [address] [place], [address] Cholesterol in LDL [Mass/Vol] 54 mg/dL Normal [facility] Comment on above: Order Comment: Order Date: 08/30/24 Order Info: 0786-1 - CMP Order Info: [id number] - LIPID Order Info: 3024-7 - T4F Result Comment: Bord saueej=790-415 mg/dL Higher Ajku=904 mg/dL or greater Friedwald Equation for LDL-C Performed By: #### L 506.1000, L506.0400, L501.9985, L100.0100, L500.4050, L500.4100 #### [facility] [address] [place], [address] Cholesterol in VLDL [Mass/Vol] 17 mg/dL Normal 5-40 [facility] Comment on above: Order Comment: Order Date: 08/30/24 Order Info: 0786-1 - CMP Order Info: [id number] - LIPID Order Info: 3024-7 - T4F Performed By: #### L 506.1000, L506.0400, L501.9985, L100.0100, L500.4050, L500.4100 #### [facility] [address] [place], [address] Triglyceride [Mass/Vol] 83 mg/dL Normal [facility] Comment on above: Order Comment: Order Date: 08/30/24 Order Info: 0786-1 - CMP Order Info: [id number] - LIPID Order Info: 3024-7 - T4F Result Comment: The drugs N-Acetylcysteine and Metamizole may falsely depress this assay. Normal range: <150 mg/dL Borderline High: 150-199 mg/dL High: 200-499 mg/dL Very High: >500 mg/dL Performed By: #### L 506.1000, L506.0400, L501.9985, L100.0100, L500.4050, L500.4100 #### [facility] [address] [place], [address] Magnesiumon 06-13-2025 Magnesium [Mass/Vol] 2.2 mg/dL Normal 1.5-2.[address] [facility] Comment on above: Order Comment: Order Date: 08/30/24 Order Info: 0786-1 - CMP Order Info: [id number] - LIPID Order Info: 3024-7 - T4F Performed By: #### L 506.1000, L506.0400, L501.9985, L100.0100, L500.4050, L500.4100 #### [facility] [address] [place], [address] T4 Free Directon 06-13-2025 T4 FREE DIRECT 1.20 ng/dL Normal 0.76-1.46 [facility] Comment on above: Order Comment: Order Date: 08/30/24 Order Info: 0786-1 - CMP Order Info: [id number] - LIPID Order Info: 3024-7 - T4F Performed By: #### L 506.1000, L506.0400, L501.9985, L100.0100, L500.4050, L500.4100 #### [facility] [address] [place], [address] Thyroid Stim Hormone (TSH)on 06-13-2025 TSH 2.540 uIU/mL Normal 0.300-4.200 [facility] Comment on above: Order Comment: Order Date: 08/30/24 Order Info: 0786-1 - CMP Order Info: [id number] - LIPID Order Info: [id number] - T4F Performed By: #### L 506.1000, L506.0400, L501.9985, L100.0100, L500.4050, L500.4100 #### [facility] [address] [place], [address] Urinalysis, Completeon 06-13 EPI,SQUAMOUS 0-5 SEEN Normal 0-5 [facility] Comment on above: Order Comment: Order Date: 08/30/24 Order Info: 0786-1 - CMP Order Info: [id number] - LIPID Order Info: 3024-03 - T4F Performed By: #### L 506.1000, L506.0400, L501.9985, L100.0100, L500.4050, L500.4100 #### [facility] [address] [place], [address] WBC 0-5 SEEN Normal 0-5 [facility] Comment on above: Order Comment: Order Date: 08/30/24 Order Info: 0786-1 - CMP Order Info: [id number] - LIPID Order Info: [id number] - T4F Performed By: #### L 506.1000, L506.0400, L501.9985, L100.0100, L500.4050, L500.4100 #### [facility] [address] [place], [address] BACTERIA 0 SEEN Normal None Seen [facility] Comment on above: Order Comment: Order Date: 08/30/24 Order Info: 0786-1 - CMP Order Info: [id number] - LIPID Order Info: [id number] - T4F Performed By: #### L 506.1000, L506.0400, L501.9985, L100.0100, L500.4050, L500.4100 #### [facility] [address] [place], [address] Mucus Ql (Urine sed) 0 SEEN Normal [facility] Comment on above: Order Comment: Order Date: 08/30/24 Order Info: 0786-1 - CMP Order Info: [id number] - LIPID Order Info: 3024-7 - T4F Performed By: #### L 506.1000, L506.0400, L501.9985, L100.0100, L500.4050, L500.4100 #### [facility] [address] [place], [address] RBC 0 SEEN Normal 0-5 [facility] Comment on above: Order Comment: Order Date: 08/30/24 Order Info: 0786- - CMP Order Info: [id number] - LIPID Order Info: [id number] - T4F Performed By: #### L 506.1000, L506.0400, L501.9985, L100.0100, L500.4050, L500.4100 #### [facility] [address] [place], [address] Vitamin D,25 Hydroxyon 06-13 Vitamin D 25-OH 53.3 ng/mL Normal 30-100 [facility] Comment on above: Order Comment: Order Date: 08/30/24 Order Info: 0786-1 - CMP Order Info: [id number] - LIPID Order Info: 3024-7 - T4F Result Comment: Laurita min D Status Deficiency: <20 ng/mL (50nmol/L) Insufficiency: 20-30 ng/mL (50-75 nmol/L) Sufficiency: 30-100 ng/mL (75-250 nmol/L) Toxicity: >100 ng/mL (>250 nmol/L) Performed By: #### L 506.1000, L506.0400, L501.9985, L100.0100, L500.4050, L500.4100 #### [facility] [address] [place], [address] Pulmonary Visit Reporton Pulmonary Visit Report [facility] [place] [address] [place] [address] OFFICE VISIT Date of Service: 05/01/25 MR#: [id number] Acct: [id number] Name: KALE SHEEHAN Rep #: [id number] : 1955 Provider: ANANDA West Age/Sex: 69/M Location: [facility] Status: Signed Assessment and Plan Assessment and Plan (1) Hypoxia: Status: Acute Plan: I recently identified that the patient requires supplemental oxygen with sleep. He has been compliant as recommended. He is using and benefiting from the supplemental oxygen. No additional testing at this time. Follow-up in 3 months. Contact the office with any new or worsening symptoms in the meantime. (2) Stage 3 severe COPD by GOLD classification: Status: Chronic Comment: FEV1 50% Plan: Stable, he does not appear to be an exacerbation of COPD today. No need for prednisone or antibiotic. Continue current maintenance medication, on triple therapy with use of Breztri. No additional testing at this time. Contact the office for any new or worsening symptoms. An acute visit and typically be arranged within 1-2 days. Follow-up in 3 months. (3) Smoking greater than 40 pack years: Status: Chronic Comment: current 1/2 ppd > 40 pack years Plan: Continue to encourage ongoing smoking cessation. If you recall, this patient quit smoking December 2025. Repeat LDCT ordered accordingly. (4) Asthma: Status: Chronic Qualifiers: Asthma complication type: uncomplicated Asthma persistence: persistent Asthma severity: moderate Qualified Code(s): J45.40 - Moderate persistent asthma, uncomplicated Plan: See assessment plan for COPD. The patient has asthma/COPD overlap syndrome. If he has an exacerbation between now and his follow-up visit consider obtaining eosinophil count to evaluate for the appropriateness of Biologics. Plan Details Additional Comments: This note was generated with W[employer]ch[employer]Brautkle[employer] dictation software. It may contain incorrect words, spelling, and punctuation that were not noted in checking the note before signing. Follow Up: 3 Months HPI 3 M FU Chief Complaint: Test results HPI Comments Details: This patient presents to the office today for routine follow-up of his asthma/COPD overlap syndrome and to discuss test results. He is ambulatory and on room air. He has not recently been seen in the ED or urgent care for any respiratory illness. He has not required any antibiotics or prednisone for any breathing problems. He is compliant with Breztri 2 puffs twice daily. He does not like it as well as Trelegy. However, Trelegy is too expensive. He rinses his mouth out after each use. He denies any medication side effects such as sore throat or thrush. He is having dry mouth. He continues complete smoking cessation. He quit smoking in 2023. He does have shortness of breath on exertion. He has a cough that is productive of clear sputum. He denies any hemoptysis. He is also experiencing sinus congestion and sinus drainage. He also reports wheezing and chest tightness. He denies any chest pain or palpitations. He has not had any fever, chills or body aches. Test results personally viewed the patient: Overnight oximetry completed on April 15, 2025. The patient spent 1 hour and 16 minutes 88% or less. Lowest saturation recorded was 82%. This test was performed on room air. 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 DME Vendor: Donnie Accompanied by: Self Is patient in pain?: No Allergies ibuprofen Allergy (Mild, Verified 05/01/25 14:44) shakes formoterol Adverse Reaction (Unknown, Verified 05/01/25 14:44) unknown mometasone furoate Adverse Reaction (Unknown, Verified 05/01/25 14:44) unknown Medications ???Medication ???Instructions ???Recorded ???Confirmed ???Type cholecalciferol (vitamin D3) 50 2,000 unit PO DAILY 11/24/1705/01 History mcg (2,000 unit) capsule multivitamin with folic acid 200 200 mcg PO DAILY 11/24/17 05/01/25 History mcg chewable tablet (Adult Multivitamin Extra Vitamin D3) tamsulosin 0.4 mg capsule 0.4 mg PO QHS 11/24/17 05/01/25 Hi story albuterol sulfate 90 mcg/actuation 2 puff inhalation Q6H PRN SOB 05/01/25 History aerosol inhaler finasteride 5 mg tablet 5 mg PO DAILY 12/11/21 05/01/25 Hi story docusate sodium 100 mg capsule 100 mg PO DAILY 05/05/22 05/01/25 History (Stool Softener) budesonide 16 (more content not included)... Normal [facility] Pulmonary Visit Reporton Pulmonary Visit Report [facility] [address] [place] [address] OFFICE VISIT Date of Service: 01/02/25 MR#: [id number] Acct: [id number] Name: KALE SHEEHAN Rep #: [id number] : 1955 Provider: ANANAD West Age/Sex: 69/M Location: [facility].PMW Status: Signed Assessment and Plan Assessment and Plan (1) Hypoxia: Status: Acute Plan: Deteriorated. The patient reports that he is not utilizing supplemental oxygen at home, but he does not have any supplemental oxygen. On the most recent split-night study that we have, which was completed In January 2021, sleep apnea was ruled out but hypoxia was noted. The patient does have concerns about shortness of breath, especially on exertion. This could be related to a complication, such as cor pulmonale, from untreated hypoxia. I have ordered a nocturnal oximetry to be completed. If it is proven that the patient has hypoxia with sleep supplemental oxygen will be ordered. The patient admits that he is hesitant to having any testing done at this time because he does not have any money". I have encouraged him to proceed with testing as requested. I also explained how treating hypoxia and ultimately help his overall health and potentially improve the shortness of breath that he is experiencing. Follow-up in 3 months to evaluate response to supplemental oxygen. (2) Stage 3 severe COPD by GOLD classification: Status: Chronic Comment: FEV1 50% Plan: Deteriorated. He does not appear to be in exacerbation today, but he is more symptomatic with the complaints of shortness of breath and cough that is productive of thick white mucus. No indication for antibiotics or steroids. Continue triple therapy on Breztri. Trying to optimize his situation by adding Daliresp. No additional testing at this time, but I think he would benefit from pulmonary rehab. I offer to refer him, he declined. He states he doesn't have the money to travel "back and forth all the time". Follow-up in 3 months to evaluate response to Daliresp. (3) Smoking greater than 40 pack years: Status: Chronic Comment: current 1/2 ppd > 40 pack years Plan: Continue to encourage ongoing smoking cessation. If you recall, this patient quit smoking December 2024. Repeat LDCT ordered accordingly. (4) Asthma: Status: Chronic Qualifiers: Asthma severity: moderate Asthma persistence: persistent Asthma complication type: uncomplicated Qualified Code(s): J45.40 - Moderate persistent asthma, uncomplicated Plan: See assessment plan for COPD. The patient has asthma/COPD overlap syndrome. Orders: Orders OutPt Pulse Ox/Cont Overnight Today R09.02 - Hypoxemia Low Dose CT Lung Screening 12/25/25 F17.200 - Nicotine dependence, unspecified, uncomplicated, F17.210 - Nicotine dependence, cigarettes, uncomplicated Medications: New roflumilast (Daliresp) 500 mcg PO DAILY 30 tabs 11RF R09.02 - Hypoxemia Plan Details Follow Up: 3 Months HPI 9 M FU Chief Complaint: Test results HPI Comments Details: This patient presents to the office today for routine follow-up of his asthma/COPD overlap syndrome. He is ambulatory and currently on room air. He has not recently been seen in the ED or urgent care for any respiratory illness. He has not required any antibiotics or prednisone for any breathing problems. He reports that he had a chest cold a few weeks ago but was able to control it with rdve-owy-rpxphzz cough medication. He is compliant with Breztri 2 puffs twice daily. He rinses his mouth out after each use. He denies any medication side effects such as sore throat or thrush. He is having dry mouth. He continues complete smoking cessation. He quit smoking in 2023. He is not currently on supplemental oxygen. He does have shortness of breath on exertion. Currently he has a cough that is productive of white thick sputum. He denies any hemoptysis. He is also experiencing sinus congestion and sinus drainage. He also reports wheezing and chest tightness. He denies any chest pain or palpitations. He has not had any fever, chills or body aches. Test results personally viewed the patient: Low-dose CT lung screening completed on December 26, 2024. No suspicious nodules are seen. Recommendation is to continue screening with annual LDCT. 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 Normal [facility] Low Dose CT Lung Screeningon 12-26-[address] Lung Screening [facility] Imaging Services [address] [place] [id number] Lung Screening MR#: [id number] Acct: [id number] Name: KALE SHEEHAN Rep #: [id number] : 1955 M 69 From: Choco lopez MD PCP: Dr. Alexsander Casanova MD Status: REG CL Study: Low Dose CT Lung Screening Date of Exam: 12/26 Exam# [id number] Ordering Dr: Elissa West STOREKEEPER ENGINEERING STOREKEEPER ENGINEERING-C PROCEDURE: LOW DOSE CT LUNG SCREENING 12/26/2024 REASON FOR EXAM: SMOKER Former smoker. Patient has smoked 3 packs per day for many years. TECHNIQUE: Low Dose CT Lung screening without contrast. Coronal and Sagittal reconstruction series were provided. One or more dose reduction techniques were used (e.g., Automated exposure control, adjustment of the mA and/or kV according to patient size, use of iterative reconstruction technique). REFERENCE LINK: Dedicated [employer] Lung-RADS RADIATION DOSE SUMMARY: CTDlvol: 4.02 mGy DLP: 145.47 mGycm COMPARISON: Comparison is made with prior study dated August 19, 2023. FINDINGS: PULMONARY NODULES: (Only nodules >3mm are reported) Nodules described below are on series 1 unless otherwise specified. Pulmonary Nodules: No suspicious nodules are seen. Hardware:None Lymph Nodes:Small mediastinal lymph nodes. Heart and Vasculature:Minimal anterior pericardial thickening. Coronary Artery Calcifications: Present Lungs and Airways: Advanced emphysematous changes are present. Stable scarring in the right upper lobe. Pleura:Unremarkable Upper Abdomen:Unremarkable Bones:Degenerative changes of the thoracic spine. CT/Low Dose CT Lung Screening IMPRESSION: Coronary artery calcification (CAC) is is present Lung-RADS Category: 2 BENIGN (BASED ON IMAGING FEATURES OR INDOLENT BEHAVIOR). RECOMMEND 12-MONTH SCREENING LDCT. Other Significant Findings: None. Reading Location: [place] [address] CC: ANANDA West; Dr. Alexsander Casanova MD Senior Supply Chain Analyst: Signed Normal [facility] Post Void Residual Bladderon 09-07-2024 Post Void Residual Bladder [facility] Imaging Services [address] [place], [place] [address] Post Void Residual Bladder MR#: [id number] Acct: [id number] Name: KALE SHEEHAN Rep #: [id number] : 1955 M 68 From: Eris Warren MD PCP: Dr. Alexsander Casanova MD Status: REG CLI Study: Post Void Residual Bladder Date of Exam: 09/07 Exam# [id number] Ordering Dr: Alexsander Casanova MD [id number] STUDY: ULTRASOUND - URINARY BLADDER REASON FOR EXAM: Male, 68 years old. bph incomplete emptying TECHNIQUE: Ultrasound evaluation of the urinary bladder was performed with real-time and static calvo-scale imaging. COMPARISON: None. FINDINGS: There is no right UVJ calculus. There is a visualized right ureteral "jet". There is no left UVJ calculus. There is a visualized left ureteral "jet". The distended volume of the urinary bladder is 524.40 ml. The empty volume of the urinary bladder is 278.82 ml. The bladder wall is within normal limits. The bladder wall measures 2.3. There is no demonstrated bladder wall mass lesion. There are no demonstrated bladder calculi. US/Post Void Residual Bladder IMPRESSION: Normal distention of an anechoic bladder without wall thickening but there is abnormally large postvoid residual of almost [address] the patient risk for urinary reflux and UTIs. Electronically Signed: Valente Warren MD at 21:19 EST , CC: Dr. Alexsander Casanova MD Senior Supply Chain Analyst: Signed Normal [facility] Hemoglobin A1con 08-31-2024 HbA1c (Bld) [Mass fraction] 5.8 % High 3.8-5.6 [facility] Comment on above: Order Comment: Order Date: 08/30/24 Order Info: [id number] - A1C Result Comment: Norm al < 5.7 % Prediabetic 5.7 - 6.4 % Diabetic >or= 6.5 % Please note range changes. Performed By: #### L 506.1000, L506.0400, L501.9985, L100.0100, L500.4050, L500.4100 #### [facility] [address] [place] [address], [address] Vitamin D,25 Hydroxyon 08-31 Vitamin D 25-OH 80.8 ng/mL Normal [facility] Comment on above: Order Comment: Order Date: 08/30/24 Order Info: [id number] - VITD25 Result Comment: Laurita min D 25(OH) Status Range Deficiency <20 ng/mL (50nmol/L) Insufficiency 20 - 30 ng/mL (50 - 75 nmol/L) Sufficiency 30 - 100 ng/mL (75 - 250 nmol/L) Toxicity >100 ng/mL (>250 nmol/L) Performed By: #### L 506.1000, L506.0400, L501.9985, L100.0100, L500.4050, L500.4100 #### [facility] [address] [place], [address] [id number]-Tjqzdip DOrdered By: Yvrose Casanova on 08-30-2024 Vitamin D 25-Hydroxy 80.8 ng/mL [facility] Comment on above: Vitamin D 25(OH) Sta tus Range Deficiency <20 ng/mL (50nmol/L) Insufficiency 20 - 30 ng/mL (50 - 75 nmol/L) Sufficiency 30 - 100 ng/mL (75 - 250 nmol/L) Toxicity >100 ng/mL (>250 nmol/L) Absolute neutrophil countOrd ered By: Alexsander Casanova on 08-30-2024 Neutrophils (Bld) [#/Vol] 5.5 10*3/uL 2.0-7.7 [facility] Albumin to globulin ratioOrd ered By: Alexsander Casanova on 08-30-2024 Albumin/Globulin [Mass ratio] 1.3 {ratio} 0.9-2.4 [facility] Basophil percentageOrdered B y: Alexsander Casanova on 08-30-2024 Basophils/100 WBC (Bld) 0.5 % 0-1 [facility] Bilirubin Test strip Ql (U)O rdered By: Alexsander Casanova on 08-30-2024 Bilirubin Ql (U) Negative Negative [facility] Bilirubin, totalOrdered By: Alexsander Casanova on 08-30-2024 Bilirubin [Mass/Vol] 0.50 mg/dL 0.20-1.[address] [facility] Comment on above: For patients on eltr ombopag therapy, use of Dimension [place] TBIL is not recommended. Blood urea nitrogen (BUN)/cr eatinine ratioOrdered By: Alexsander Casanova on 08-30-2024 Urea nitrogen/Creatinine [Mass ratio] 17.2 mg/mg 10-20 [facility] CBC W/Diff, Automatedon Absolute Lymph 1.75 X10 3/uL Normal 0.83-4.51 [facility] Comment on above: Order Comment: Order Date: 08/30/24 Order Info: [id number] - CBCD Performed By: #### L 506.1000, L506.0400, L501.9985, L100.0100, L500.4050, L500.4100 #### [facility] [address] [place], [address] Absolute Neut 5.5 X10 3/uL Normal 2.0-7.7 [facility] Comment on above: Order Comment: Order Date: 08/30/24 Order Info: [id number] - CBCD Performed By: #### L 506.1000, L506.0400, L501.9985, L100.0100, L500.4050, L500.4100 #### [facility] [address] [facility] [place], [address] (658 Basophils/100 WBC (Bld) 0.5 % Normal 0-1 [facility] Comment on above: Order Comment: Order Date: 08/30/24 Order Info: [id number] - CBCD Performed By: #### L 506.1000, L506.0400, L501.9985, L100.0100, L500.4050, L500.4100 #### [facility] [address] [place], [address] (379 Eosinophils/100 WBC (Bld) 1.0 % Normal 0-5 [facility] Comment on above: Order Comment: Order Date: 08/30/24 Order Info: [id number] - CBCD Performed By: #### L 506.1000, L506.0400, L501.9985, L100.0100, L500.4050, L500.4100 #### [facility] [address] [place], [address] (399 Erythrocyte distribution width (RBC) [Ratio] 12.0 % Normal 11.6-14.6 [facility] Comment on above: Order Comment: Order Date: 08/30/24 Order Info: [id number] - CBCD Performed By: #### L 506.1000, L506.0400, L501.9985, L100.0100, L500.4050, L500.4100 #### [facility] [address] [place], [address] Hematocrit (Bld) [Volume fraction] 45.5 % Normal 40-54 [facility] Comment on above: Order Comment: Order Date: 08/30/24 Order Info: [id number] - CBCD Performed By: #### L 506.1000, L506.0400, L501.9985, L100.0100, L500.4050, L500.4100 #### [facility] [address] [place], [address] Hemoglobin (Bld) [Mass/Vol] 15.4 g/dL Normal 13.0-16.5 [facility] Comment on above: Order Comment: Order Date: 08/30/24 Order Info: [id number] - CBCD Performed By: #### L 506.1000, L506.0400, L501.9985, L100.0100, L500.4050, L500.4100 #### [facility] [address] [place], [address] IG% 0.700 Normal 0.0-0.9 [facility] Comment on above: Order Comment: Order Date: 08/30/24 Order Info: [id number] - CBCD Result Comment: IG% - Immature Granulocytes (promyelocytes, myelocytes and metamyelocytes) > 1% indicates that a LEFT SHIFT is Present. Performed By: #### L 506.1000, L506.0400, L501.9985, L100.0100, L500.4050, L500.4100 #### [facility] [address] [place], [address] Lymphocytes/100 WBC (Bld) 21.1 % Normal 19-41 [facility] Comment on above: Order Comment: Order Date: 08/30/24 Order Info: 0184-1 - CBCD Performed By: #### L 506.1000, L506.0400, L501.9985, L100.0100, L500.4050, L500.4100 #### [facility] [address] [place], [address] MCH (RBC) [Entitic mass] 32.4 pg High 27.0-32.0 [facility] Comment on above: Order Comment: Order Date: 08/30/24 Order Info: 018- - CBCD Performed By: #### L 506.1000, L506.0400, L501.9985, L100.0100, L500.4050, L500.4100 #### [facility] [address] [place], [address] MCHC (RBC) [Mass/Vol] 33.8 g/dL Normal 32-36 [facility] Comment on above: Order Comment: Order Date: 08/30/24 Order Info: [id number] - CBCD Performed By: #### L 506.1000, L506.0400, L501.9985, L100.0100, L500.4050, L500.4100 #### [facility] [address] [place], [address] MCV (RBC) [Entitic vol] 95.8 fL High 80-94 [facility] Comment on above: Order Comment: Order Date: 08/30/24 Order Info: 018- - CBCD Performed By: #### L 506.1000, L506.0400, L501.9985, L100.0100, L500.4050, L500.4100 #### [facility] [address] [place], [address] Monocytes/100 WBC (Bld) 10.7 % High 0-10 [facility] Comment on above: Order Comment: Order Date: 08/30/24 Order Info: 018- - CBCD Performed By: #### L 506.1000, L506.0400, L501.9985, L100.0100, L500.4050, L500.4100 #### [facility] [address] [place], [address] Neutrophils/100 WBC (Bld) 66.0 % Normal 47-70 [facility] Comment on above: Order Comment: Order Date: 08/30/24 Order Info: 018- - CBCD Performed By: #### L 506.1000, L506.0400, L501.9985, L100.0100, L500.4050, L500.4100 #### [facility] [address] [place], [address] Nucleated RBC (Bld) [#/Vol] 0 10*3/uL Normal 0-5 [facility] Comment on above: Order Comment: Order Date: 08/30/24 Order Info: 018- - CBCD Performed By: #### L 506.1000, L506.0400, L501.9985, L100.0100, L500.4050, L500.4100 #### [facility] [address] [place], [address] Platelet mean volume (Bld) [Entitic vol] 11.6 fL Normal 6.2-12.0 [facility] Comment on above: Order Comment: Order Date: 08/30/24 Order Info: 018- - CBCD Performed By: #### L 506.1000, L506.0400, L501.9985, L100.0100, L500.4050, L500.4100 #### [facility] [address] [place], [address] Platelets (Bld) [#/Vol] 215 10*3/uL Normal 150-450 [facility] Comment on above: Order Comment: Order Date: 08/30/24 Order Info: 018- - CBCD Performed By: #### L 506.1000, L506.0400, L501.9985, L100.0100, L500.4050, L500.4100 #### [facility] [address] [place], [place], [address] RBC (Bld) [#/Vol] 4.75 10*6/uL Normal 4.6-6.2 [facility] Comment on above: Order Comment: Order Date: 08/30/24 Order Info: [id number] - CBCD Performed By: #### L 506.1000, L506.0400, L501.9985, L100.0100, L500.4050, L500.4100 #### [facility] [address] [place], [address] RDW SD 42.3 fl Normal 35.1-43.9 [facility] Comment on above: Order Comment: Order Date: 08/30/24 Order Info: 0184-1 - CBCD Performed By: #### L 506.1000, L506.0400, L501.9985, L100.0100, L500.4050, L500.4100 #### [facility] [address] [facility] [place], [address] WBC (Bld) [#/Vol] 8.3 10*3/uL Normal 4.4-11.0 [facility] Comment on above: Order Comment: Order Date: 08/30/24 Order Info: 0184-1 - CBCD Performed By: #### L 506.1000, L506.0400, L501.9985, L100.0100, L500.4050, L500.4100 #### [facility] [address] [place], [place], [address] Carbon dioxide measurementOr dered By: Alexsander Casanova on 08-30-2024 CO2 [Moles/Vol] 28.0 mmol/L 21.0-32.0 [facility] Chloride measurementOrdered By: Alexsander Casanova on 08-30-2024 Chloride [Moles/Vol] 102 mmol/L 98-[address] [facility] Comprehensive Metabolic Prof ilon 08-30-2024 Albumin [Mass/Vol] 4.3 g/dL Normal 3.2-5.0 [facility] Comment on above: Order Comment: Order Date: 08/30/24 Order Info: [id number] - CMP Order Info: [id number] - LIPID Order Info: [id number] - T4F Performed By: #### L 506.1000, L506.0400, L501.9985, L100.0100, L500.4050, L500.4100 #### [facility] [address] [place], [address] Albumin/Globulin [Mass ratio] 1.3 {ratio} Normal 0.9-2.4 [facility] Comment on above: Order Comment: Order Date: 08/30/24 Order Info: [id number] - CMP Order Info: [id number] - LIPID Order Info: [id number] - T4F Performed By: #### L 506.1000, L506.0400, L501.9985, L100.0100, L500.4050, L500.4100 #### [facility] [address] [place], [address] ALK P 66 U/L Normal 45-117 [facility] Comment on above: Order Comment: Order Date: 08/30/24 Order Info: [id number] - CMP Order Info: [id number] - LIPID Order Info: [id number] - T4F Performed By: #### L 506.1000, L506.0400, L501.9985, L100.0100, L500.4050, L500.4100 #### [facility] [address] [place], [address] ALT [Catalytic activity/Vol] 30 U/L Normal 16-61 [facility] Comment on above: Order Comment: Order Date: 08/30/24 Order Info: [id number] - CMP Order Info: [id number] - LIPID Order Info: [id number] - T4F Performed By: #### L 506.1000, L506.0400, L501.9985, L100.0100, L500.4050, L500.4100 #### [facility] [address] [place], [address] AST [Catalytic activity/Vol] 19 U/L Normal 15-37 [facility] Comment on above: Order Comment: Order Date: 08/30/24 Order Info: [id number] - CMP Order Info: [id number] - LIPID Order Info: [id number] - T4F Performed By: #### L 506.1000, L506.0400, L501.9985, L100.0100, L500.4050, L500.4100 #### [facility] [address] [place], [address] Bilirubin [Mass/Vol] 0.50 mg/dL Normal 0.20-1.[address] [facility] Comment on above: Order Comment: Order Date: 08/30/24 Order Info: 07-1 - CMP Order Info: [id number] - LIPID Order Info: [id number] - T4F Result Comment: For patients on eltrombopag therapy, use of Dimension [place] TBIL is not recommended. Performed By: #### L 506.1000, L506.0400, L501.9985, L100.0100, L500.4050, L500.4100 #### [facility] [address] [place], [address] BUN/CRE 17.2 RATIO Normal 10-20 [facility] Comment on above: Order Comment: Order Date: 08/30/24 Order Info: [id number] - CMP Order Info: [id number] - LIPID Order Info: 3024-7 - T4F Performed By: #### L 506.1000, L506.0400, L501.9985, L100.0100, L500.4050, L500.4100 #### [facility] [address] [place], [address] CA,Total 9.4 mg/dL Normal 8.5-10.1 [facility] Comment on above: Order Comment: Order Date: 08/30/24 Order Info: [id number] - CMP Order Info: [id number] - LIPID Order Info: [id number] - T4F Performed By: #### L 506.1000, L506.0400, L501.9985, L100.0100, L500.4050, L500.4100 #### [facility] [address] [place], [address] Chloride [Moles/Vol] 102 mmol/L Normal 98-[address] [facility] Comment on above: Order Comment: Order Date: 08/30/24 Order Info: 07- - CMP Order Info: - LIPID Order Info: [id number] - T4F Performed By: #### L 506.1000, L506.0400, L501.9985, L100.0100, L500.4050, L500.4100 #### [facility] [address] [place], [address] CO2 [Moles/Vol] 28.0 mmol/L Normal 21.0-32.0 [facility] Comment on above: Order Comment: Order Date: 08/30/24 Order Info: [id number] - CMP Order Info: - LIPID Order Info: [id number] - T4F Performed By: #### L 506.1000, L506.0400, L501.9985, L100.0100, L500.4050, L500.4100 #### [facility] [address] [place], [address] Creatinine [Mass/Vol] 1.22 mg/dL Normal 0.70-1.30 [facility] Comment on above: Order Comment: Order Date: 08/30/24 Order Info: [id number] - CMP Order Info: [id number] - LIPID Order Info: [id number] - T4F Result Comment: The validity of the calculated GFR GFRAA in patients over 70 years has not been determined. Clinical correlation is essential. Performed By: #### L 506.1000, L506.0400, L501.9985, L100.0100, L500.4050, L500.4100 #### [facility] [address] [place], [address] EST GFR - AA 76 mL/min Normal >60 [facility] Comment on above: Order Comment: Order Date: 08/30/24 Order Info: [id number] - CMP Order Info: [id number] - LIPID Order Info: [id number] - T4F Result Comment: Afri can Prydeinig GFR Calc Performed By: #### L 506.1000, L506.0400, L501.9985, L100.0100, L500.4050, L500.4100 #### [facility] [address] [place], [address] GAP 6 Normal 5-15 [facility] Comment on above: Order Comment: Order Date: 08/30/24 Order Info: [id number] - CMP Order Info: [id number] - LIPID Order Info: [id number] - T4F Performed By: #### L 506.1000, L506.0400, L501.9985, L100.0100, L500.4050, L500.4100 #### [facility] [address] [place], [address] GFR/1.73 sq M.predicted among non-blacks MDRD (S/P/Bld) [Vol rate/Area] 63 mL/min/{1.73_m2} Normal >60 [facility] Comment on above: Order Comment: Order Date: 08/30/24 Order Info: [id number] - CMP Order Info: [id number] - LIPID Order Info: [id number] - T4F Result Comment: Non- GFR Calc Performed By: #### L 506.1000, L506.0400, L501.9985, L100.0100, L500.4050, L500.4100 #### [facility] [address] [place], [address] Globulin (S) [Mass/Vol] 3.3 g/dL Normal 2.2-4.2 [facility] Comment on above: Order Comment: Order Date: 08/30/24 Order Info: [id number] - CMP Order Info: [id number] - LIPID Order Info: [id number] - T4F Performed By: #### L 506.1000, L506.0400, L501.9985, L100.0100, L500.4050, L500.4100 #### [facility] [address] [place], [address] Glucose [Mass/Vol] 82 mg/dL Normal 74-106 [facility] Comment on above: Order Comment: Order Date: 08/30/24 Order Info: [id number] - CMP Order Info: [id number] - LIPID Order Info: [id number] - T4F Performed By: #### L 506.1000, L506.0400, L501.9985, L100.0100, L500.4050, L500.4100 #### [facility] [address] [place], [address] Potassium [Moles/Vol] 4.0 mmol/L Normal 3.5-5.1 [facility] Comment on above: Order Comment: Order Date: 08/30/24 Order Info: [id number]- - CMP Order Info: [id number] - LIPID Order Info: [id number] - T4F Performed By: #### L 506.1000, L506.0400, L501.9985, L100.0100, L500.4050, L500.4100 #### [facility] [address] [place], [address] Sodium [Moles/Vol] 136 mmol/L Normal 136-145 [facility] Comment on above: Order Comment: Order Date: 08/30/24 Order Info: [id number] - CMP Order Info: [id number] - LIPID Order Info: 7 - T4F Performed By: #### L 506.1000, L506.0400, L501.9985, L100.0100, L500.4050, L500.4100 #### [facility] [address] [place], [place], [address] T PROT 7.6 g/dL Normal 6.4-8.2 [facility] Comment on above: Order Comment: Order Date: 08/30/24 Order Info: [id number] - CMP Order Info: [id number] - LIPID Order Info: [id number] - T4F Performed By: #### L 506.1000, L506.0400, L501.9985, L100.0100, L500.4050, L500.4100 #### [facility] [address] [place], [address] Urea nitrogen [Mass/Vol] 21 mg/dL High - [facility] Comment on above: Order Comment: Order Date: 08/30/24 Order Info: [id number] - CMP Order Info: [id number] - LIPID Order Info: [id number] - T4F Performed By: #### L 506.1000, L506.0400, L501.9985, L100.0100, L500.4050, L500.4100 #### [facility] [address] [place], [place], [address] Direct serum free thyroxine (FT4) measurementOrdered By: Alexsander Casanova on 08-30-2024 Free T4 [Mass/Vol] 0.97 ng/dL 0.76-1.46 [facility] Eosinophil percentageOrdered By: Alexsander Casanova on 08-30-2024 Eosinophils/100 WBC (Bld) 1.0 % 0-5 [facility] Epithelial cells.squamous LM Ql (Urine sed)Ordered By: Alexsander Casanova on 08-30-2024 Epithelial cells.squamous LM.HPF (Urine sed) [#/Area] 0 /[HPF] 0-5 [facility] Erythrocyte distribution wid th (RBC) [Ratio]Ordered By: Alexsander Casanova on 08-30-2024 Erythrocyte distribution width (RBC) [Entitic vol] 42.3 fL 35.1-43.9 [facility] Erythrocyte distribution wid th ratioOrdered By: Alexsander Casanova on 08-30-2024 Erythrocyte distribution width (RBC) [Ratio] 12.0 % 11.6-14.6 [facility] Estimated glomerular filtrat ion rate (GFR) AmericanOrdered By: Alexsander Casanova on 08-30-2024 Estimated GFR (MDRD) Amer 76 mL/min >60 [facility] Comment on above: GFR Calc Glomerular filtration rate ( GFR) estimationOrdered By: Alexsander Casanova on 08-30-2024 Estimated GFR (MDRD) Non-Af Amer 63 mL/min >60 [facility] Comment on above: Non- GFR Calc Glucose Ql (U)Ordered By: Silvana Casanova on 08-30-2024 Urine Glucose (UA) Normal mg/dl Normal [facility] Glucose measurementOrdered B y: Alexsander Casanova on 08-30-2024 Glucose [Mass/Vol] 82 mg/dL 74-106 [facility] Hematocrit Auto (Bld) [Volum e fraction]Ordered By: Alexsander Casanova on 08-30-2024 Hematocrit (Bld) [Volume fraction] 45.5 % 40-54 [facility] Hemoglobin A1c percentageOrd ered By: Alexsander Casanova on 08-30-2024 HbA1c (Bld) [Mass fraction] 5.8 % High 3.8-5.6 [facility] Comment on above: Normal < 5.7 % Predi abetic 5.7 - 6.4 % Diabetic >or= 6.5 % Please note range changes. Hemoglobin measurementOrdere d By: Alexsander Casanova on 08-30-2024 Hemoglobin (Bld) [Mass/Vol] 15.4 g/dL 13.0-16.5 [facility] High density lipoprotein (HD L) measurementOrdered By: Alexsander Casanova on 08-30-2024 Cholesterol in HDL [Mass/Vol] 48 mg/dL >40 [facility] Comment on above: The drugs N-Acetylcy steine and Metamizole may falsely depress this assay. Reference Range HDL <40 mg/dL Low HDL Cholesterol HDL >or= 60 mg/dL High HDL Cholesterol Immature granulocytes/100 WB C Auto (Bld)Ordered By: Alexsander Casanova on 08-30-2024 Immature granulocytes/100 WBC (Bld) 0.700 % 0.0-0.9 [facility] Comment on above: IG% - Immature Granu locytes (promyelocytes, myelocytes and metamyelocytes) > 1% indicates that a LEFT SHIFT is Present. Ketones Test strip Ql (U)Ord ered By: Alexsander Casanova on 08-30-2024 Ketones Ql (U) Negative Negative [facility] - Chemistry and C hemistry - challengeOrdered By: Alexsander Casanova on 08-30-2024 AST [Catalytic activity/Vol] 19 U/L 15-37 [facility] Lipid Profileon 08-30-2024 Cholesterol [Mass/Vol] 131 mg/dL Normal 200 [facility] Comment on above: Order Comment: Order Date: 08/30/24 Order Info: [id number] - CMP Order Info: [id number] - LIPID Order Info: [id number] - T4F Result Comment: <200 mg/dL Desirable 200-240 mg/dL Borderline >240 mg/dL High Risk Performed By: #### L 506.1000, L506.0400, L501.9985, L100.0100, L500.4050, L500.4100 #### [facility] [address] [place], [address] Cholesterol in HDL [Mass/Vol] 48 mg/dL Normal [facility] Comment on above: Order Comment: Order Date: 08/30/24 Order Info: [id number] - CMP Order Info: [id number] - LIPID Order Info: [id number] - T4F Result Comment: The drugs N-Acetylcysteine and Metamizole may falsely depress this assay. Reference Range HDL <40 mg/dL Low HDL Cholesterol HDL >or= 60 mg/dL High HDL Cholesterol Performed By: #### L 506.1000, L506.0400, L501.9985, L100.0100, L500.4050, L500.4100 #### [facility] [address] [place], [address] Cholesterol in LDL [Mass/Vol] 55 mg/dL Normal 0-130 [facility] Comment on above: Order Comment: Order Date: 08/30/24 Order Info: [id number] - CMP Order Info: [id number] - LIPID Order Info: [id number] T4 Performed By: #### L 506.1000, L506.0400, L501.9985, L100.0100, L500.4050, L500.4100 #### [facility] [address] [place], [address] Cholesterol in VLDL [Mass/Vol] 28 mg/dL Normal 5-40 [facility] Comment on above: Order Comment: Order Date: 08/30/24 Order Info: [id number] - CMP Order Info: [id number] - LIPID Order Info: [id number] T4F Performed By: #### L 506.1000, L506.0400, L501.9985, L100.0100, L500.4050, L500.4100 #### [facility] [address] [place], [address] Triglyceride [Mass/Vol] 142 mg/dL Normal [facility] Comment on above: Order Comment: Order Date: 08/30/24 Order Info: [id number] - CMP Order Info: [id number] - LIPID Order Info: [id number] T4 Result Comment: The drugs N-Acetylcysteine and Metamizole may falsely depress this assay. Serum Triglycerides Reference Interval Normal <150 mg/dL Borderline high 150 - 199 mg/dL High 200 - 499 mg/dL Very High > or = 500 mg/dL Performed By: #### L 506.1000, L506.0400, L501.9985, L100.0100, L500.4050, L500.4100 #### [facility] [address] [place], [address] Low density lipoprotein (LDL ) cholesterol measurementOrdered By: Alexsander Casanova on 08-30-2024 Cholesterol in LDL [Mass/Vol] 55 mg/dL 0-130 [facility] Lymphocytes Auto (Unsp spec) [#/Vol]Ordered By: Alexsander Casanova on 08-30-2024 Lymphocytes (Bld) [#/Vol] 1.75 10*3/uL 0.83-4.51 [facility] Lymphocytes/100 WBC Auto (Un sp spec)Ordered By: Alexsander Casanova on 08-30-2024 Lymphocytes/100 WBC (Bld) 21.1 % 19-41 [facility] MCV (mean corpuscular volume ) determinationOrdered By: Alexsander Casanova on 08-30-2024 MCV (RBC) [Entitic vol] 95.8 fL High 80-94 [facility] Mean corpuscular hemoglobin (MCH) determinationOrdered By: Alexsander Casanova on 08-30-2024 MCH (RBC) [Entitic mass] 32.4 pg High 27.0-32.0 [facility] Mean corpuscular hemoglobin concentration (MCHC) determinationOrdered By: Alexsander Casanova on 08-30-2024 MCHC (RBC) [Mass/Vol] 33.8 g/dL 32-36 [facility] Mean platelet volume determi nationOrdered By: Alexsander Casanova on 08-30-2024 Platelet mean volume (Bld) [Entitic vol] 11.6 fL 6.2-12.0 [facility] Microscopic analysis of urin e for red blood cells (RBC)Ordered By: Alexsander Casanova on 08-30-2024 Urine RBC 0 SEEN /hpf 0-5 [facility] Monocyte percentageOrdered B y: Alexsander Casanova on 08-30-2024 Monocytes/100 WBC (Bld) 10.7 % High 0-10 [facility] Mucus LM Ql (Urine sed)Order ed By: Alexsander Casanova on 08-30-2024 Mucus Ql (Urine sed) 0 SEEN /hpf [facility] Neutrophil percentageOrdered By: Alexsander Casanova on 08-30-2024 Neutrophils/100 WBC (Bld) 66.0 % 47-70 [facility] Nitrite Test strip Ql (U)Ord ered By: Alexsander Casanova on 08-30-2024 Nitrite Ql (U) Negative Negative [facility] Nucleated red blood cell per centageOrdered By: Alexsander Casanova on 08-30-2024 Nucleated RBC/100 WBC (Bld) [Ratio] 0 % 0-5 [facility] Platelet countOrdered By: Silvana Casanova on 08-30-2024 Platelets (Bld) [#/Vol] 215 10*3/uL 150-450 [facility] Potassium measurementOrdered By: Alexsander Casanova on 08-30-2024 Potassium [Moles/Vol] 4.0 mmol/L 3.5-5.1 [facility] Protein Test strip Ql (U)Ord ered By: Alexsander Casanova on 08-30-2024 Protein Ql (U) Negative Negative [facility] RBC Auto (Bld) [#/Vol]Ordere d By: Alexsander Casanova on 08-30-2024 RBC (Bld) [#/Vol] 4.75 10*6/uL 4.6-6.2 [facility] Serum anion gap measurementO rdered By: Alexsander Casanova on 08-30-2024 Anion gap [Moles/Vol] 6 mmol/L 5-15 [facility] Serum globulin measurementOr dered By: Alexsander Casanova on 08-30-2024 Globulin (S) [Mass/Vol] 3.3 g/dL 2.2-4.2 [facility] Serum or plasma alanine ramos otransferase (ALT) measurementOrdered By: Alexsander Casanova on 08-30-2024 ALT [Catalytic activity/Vol] 30 U/L 16-61 [facility] Serum or plasma albumin butch urement (mass/volume)Ordered By: Alexsander Casanova on 08-30-2024 Albumin [Mass/Vol] 4.3 g/dL 3.2-5.0 [facility] Serum or plasma alkaline milan sphatase measurementOrdered By: Alexsander Casanova on 08-30-2024 ALP [Catalytic activity/Vol] 66 U/L 45-117 [facility] Serum or plasma calcium butch urement (mass/volume)Ordered By: Alexsander Casanova on 08-30-2024 Calcium [Mass/Vol] 9.4 mg/dL 8.5-10.1 [facility] Serum or plasma cholesterol measurement (mass/volume)Ordered By: Alexsander Casanova on 08-30-2024 Cholesterol [Mass/Vol] 131 mg/dL <200 [facility] Comment on above: <200 mg/dL Desirable 200-240 mg/dL Borderline >240 mg/dL High Risk Serum or plasma creatinine m easurement (mass/volume)Ordered By: Alexsander Casanova on 08-30-2024 Creatinine [Mass/Vol] 1.22 mg/dL 0.70-1.30 [facility] Comment on above: The validity of the calculated GFR & GFRAA in patients over 70 years has not been determined. Clinical correlation is essential. Serum or plasma urea nitroge n measurement (mass/volume)Ordered By: Alexsander Casanova on 08-30-2024 Urea nitrogen [Mass/Vol] 21 mg/dL High 7-18 [facility] Sodium levelOrdered By: Alexsander Casanova on 08-30-2024 Sodium [Moles/Vol] 136 mmol/L 136-145 [facility] T4 Free Directon 08-30-2024 T4 FREE DIRECT 0.97 ng/dL Normal 0.76-1.46 [facility] Comment on above: Order Comment: Order Date: 08/30/24 Order Info: [id number] - CMP Order Info: [id number] - LIPID Order Info: [id number] - T4F Performed By: #### L 506.1000, L506.0400, L501.9985, L100.0100, L500.4050, L500.4100 #### [facility] [address] [facility] [place], [place], [id number] Total proteinOrdered By: Eric Casanova on 08-30-2024 Protein [Mass/Vol] 7.6 g/dL 6.4-8.2 [facility] Triglycerides measurementOrd ered By: Alexsander Casanova on 08-30-2024 Triglyceride [Mass/Vol] 142 mg/dL <199 [facility] Comment on above: The drugs N-Acetylcy steine and Metamizole may falsely depress this assay.Serum Triglycerides Reference Interval Normal <150 mg/dL Borderline high 150 - 199 mg/dL High 200 - 499 mg/dL Very High > or = 500 mg/dL Urinalysis, Completeon 08-30 BACTERIA 0 SEEN Normal None Seen [facility] Comment on above: Order Comment: Order Date: 08/30/24 Order Info: [id number] - CMP Order Info: [id number] - LIPID Order Info: [id number] - T4F Performed By: #### L 506.1000, L506.0400, L501.9985, L100.0100, L500.4050, L500.4100 #### [facility] [address] [place], [address] EPI,SQUAMOUS 0 SEEN Normal 0-5 [facility] Comment on above: Order Comment: Order Date: 08/30/24 Order Info: [id number] - CMP Order Info: [id number] - LIPID Order Info: [id number] - T4F Performed By: #### L 506.1000, L506.0400, L501.9985, L100.0100, L500.4050, L500.4100 #### [facility] [address] [place], [address] Mucus Ql (Urine sed) 0 SEEN Normal [facility] Comment on above: Order Comment: Order Date: 08/30/24 Order Info: [id number] - CMP Order Info: [id number] - LIPID Order Info: [id number] - T4F Performed By: #### L 506.1000, L506.0400, L501.9985, L100.0100, L500.4050, L500.4100 #### [facility] [address] [place], [address] RBC 0 SEEN Normal 0-5 [facility] Comment on above: Order Comment: Order Date: 08/30/24 Order Info: [id number] - CMP Order Info: [id number] - LIPID Order Info: [id number] - T4F Performed By: #### L 506.1000, L506.0400, L501.9985, L100.0100, L500.4050, L500.4100 #### [facility] [address] [place], [address] WBC 0 SEEN Normal 0-5 [facility] Comment on above: Order Comment: Order Date: 08/30/24 Order Info: [id number] - CMP Order Info: [id number] - LIPID Order Info: [id number] - T4F Performed By: #### L 506.1000, L506.0400, L501.9985, L100.0100, L500.4050, L500.4100 #### [facility] [place], [address] Urine blood detectionOrdered By: Alexsander Casanova on 08-30-2024 Urine Occult Blood Negative Negative [facility] Urine clarityOrdered By: Eric Casanova on 08-30-2024 Clarity (U) Clear Clear [facility] Urine color determinationOrd ered By: Alexsander Casanova on 08-30-2024 Color (U) Yellow Yellow [facility] Urine leukocyte esterase det ection by dipstickOrdered By: Alexsander Casanova on 08-30-2024 Leukocyte esterase Test strip Ql (U) Negative Negative [facility] Urine pHOrdered By: Alexsander appiah on 08-30-2024 pH (U) 6.0 [pH] 5.0 - 8.0 [facility] Urine sediment bacteria coun t by microscopy (number/high power field)Ordered By: Alexsander Casanova on 08-30-2024 Bacteria LM.HPF (Urine sed) [#/Area] 0 /[HPF] None Seen [facility] Urine specific gravity measu rementOrdered By: Alexsander Casanova on 08-30-2024 Specific gravity (U) [Rel density] 1.005 1.002-1.030 [facility] Urobilinogen Ql (U)Ordered B y: Alexsander Casanova on 08-30-2024 Urine Urobilinogen Normal mg/dl Normal [facility] Very low density lipoprotein (VLDL) cholesterol measurementOrdered By: Alexsander Casanova on 08-30-2024 VLDL Cholesterol 28 mg/dL 5-40 [facility] White blood cell (WBC) count Ordered By: Alexsander Casanova on 08-30-2024 WBC (Bld) [#/Vol] 8.3 10*3/uL 4.4-11.0 [facility] White blood cell countOrdere d By: Alexsander Casanova on 08-30-2024 Urine WBC 0 SEEN /hpf 0-5 [facility] Absolute lymphocyte countOrd ered By: Alexsander Casanova on 10-18-2023 Lymphocytes Auto (Unsp spec) [#/Vol] 1.78 10*3/uL 0.83-4.51 [facility] Automated lymphocyte count a s percentage of total leukocytesOrdered By: Alexsander Casanova on 10-18-2023 Lymphocytes/100 WBC Auto (Unsp spec) 23.2 % 19-41 [facility] Basophil percentageOrdered B y: Alexsander Casanova on 10-18-2023 Basophil percentage 0 SEEN /hpf 0-[address] [facility] Basophils/100 WBC (Bld) 0.8 % 0-1 [facility] Bilirubin [Mass/Vol] 0.60 mg/dL 0.20-1.[address] [facility] Comment on above: For patients on eltr ombopag therapy, use of Dimension [place] TBIL is not recommended. Chloride [Moles/Vol] 105 mmol/L 98-[address] [facility] Cholesterol [Mass/Vol] 94 mg/dL <200 [facility] Comment on above: <200 mg/dL Desirable 200-240 mg/dL Borderline >240 mg/dL High Risk Eosinophils/100 WBC (Bld) 5.0 % 0-5 [facility] Glucose [Mass/Vol] 101 mg/dL 74-106 [facility] Comment on above: Fasting Glucose resu lt from 100 to 125 mg/dL suggests IMPAIRED HOMEOSTASIS per A.D.A. criteria. Hemoglobin (Bld) [Mass/Vol] 14.0 g/dL 13.0-16.5 [facility] Monocytes/100 WBC (Bld) 11.5 % 0-10 [facility] Neutrophils (Bld) [#/Vol] 4.5 10*3/uL 2.0-7.7 [facility] Neutrophils/100 WBC (Bld) 59.2 % 47-70 [facility] Potassium [Moles/Vol] 4.1 mmol/L 3.5-5.1 [facility] Protein [Mass/Vol] 7.0 g/dL 6.4-8.2 [facility] Sodium [Moles/Vol] 137 mmol/L 136-145 [facility] Triglyceride [Mass/Vol] 75 mg/dL <199 [facility] Comment on above: The drugs N-Acetylcy steine and Metamizole may falsely depress this assay.Serum Triglycerides Reference Interval Normal <150 mg/dL Borderline high 150 - 199 mg/dL High 200 - 499 mg/dL Very High > or = 500 mg/dL WBC (Bld) [#/Vol] 7.7 10*3/uL 4.4-11.0 [facility] Bilirubin Test strip Ql (U)O rdered By: Alexsander Casanova on 10-18-2023 Bilirubin Ql (U) Negative Negative [facility] Determination of erythrocyte mean corpuscular volume (MCV)Ordered By: Alexsander Casanova on 10-18-2023 MCV (RBC) [Entitic vol] 95.9 fL 80-94 [facility] Erythrocyte distribution wid th ratioOrdered By: Alexsander Casanova on 10-18-2023 Erythrocyte distribution width (RBC) [Ratio] 11.9 % 11.6-14.6 [facility] Erythrocyte distribution wid th standard deviationOrdered By: Alexsander Casanova on 10-18-2023 Erythrocyte distribution width (RBC) [Entitic vol] 41.8 fL 35.1-43.9 [facility] Hematocrit Auto (Bld) [Volum e fraction]Ordered By: Alexsander Casanova on 10-18-2023 Hematocrit (Bld) [Volume fraction] 42.1 % 40-54 [facility] High density lipoprotein (HD L) measurementOrdered By: Alexsander Casanova on 10-18-2023 Cholesterol in HDL (Body fld) [Mass/Vol] 46 mg/dL >40 [facility] Comment on above: The drugs N-Acetylcy steine and Metamizole may falsely depress this assay. Reference Range HDL <40 mg/dL Low HDL Cholesterol HDL >or= 60 mg/dL High HDL Cholesterol Immature granulocytes/100 WB C Auto (Bld)Ordered By: Alexsander Casanova on 10-18-2023 Immature granulocytes/100 WBC (Bld) 0.300 % 0.0-0.9 [facility] Comment on above: IG% - Immature Granu locytes (promyelocytes, myelocytes and metamyelocytes) > 1% indicates that a LEFT SHIFT is Present. Ketones Test strip Ql (U)Ord ered By: Alexsander Casanova on 10-18-2023 Ketones Ql (U) Negative Negative [facility] - Chemistry and C hemistry - challengeOrdered By: Alexsander Casanova on 10-18-2023 Albumin/Globulin [Mass ratio] 1.3 {ratio} 0.9-2.4 [facility] ALP [Catalytic activity/Vol] 82 U/L 45-117 [facility] ALT [Catalytic activity/Vol] 33 U/L 16-61 [facility] CO2 [Moles/Vol] 26.0 mmol/L 21.0-32.0 [facility] Globulin (S) [Mass/Vol] 3.1 g/dL 2.2-4.2 [facility] Magnesium [Mass/Vol] 2.4 mg/dL 1.6-2.[address] [facility] Urea nitrogen/Creatinine [Mass ratio] 9.4 mg/mg 10-20 [facility] - Hematology and Cell countsOrdered By: Alexsander Casanova on 10-18-2023 MCH (RBC) [Entitic mass] 31.9 pg 27.0-32.0 [facility] MCHC (RBC) [Mass/Vol] 33.3 g/dL 32-36 [facility] Nucleated RBC/100 WBC (Bld) [Ratio] 0 % 0-5 [facility] Platelets (Bld) [#/Vol] 209 10*3/uL 150-450 [facility] Low density lipoprotein (LDL ) cholesterol measurementOrdered By: Alexsander Casanova on 10-18-2023 Cholesterol in LDL (Body fld) [Moles/Vol] 33 mg/dL 0-130 [facility] Mucus LM Ql (Urine sed)Order ed By: Alexsander Casanova on 10-18-2023 Mucus Ql (Urine sed) 0 SEEN /hpf [facility] Nitrite Test strip Ql (U)Ord ered By: Alexsander Casanova on 10-18-2023 Nitrite Ql (U) Negative Negative [facility] No Panel InformationOrdered By: Alexsander Casanova on 10-18-2023 Urine RBC 0 SEEN /hpf 0-5 [facility] Estimated GFR (MDRD) Amer 90 mL/min >60 [facility] Comment on above: GFR Calc Estimated GFR (MDRD) Non-Af Amer 74 mL/min >60 [facility] Comment on above: Non- GFR Calc Vitamin D 25-Hydroxy 61.1 ng/mL [facility] Comment on above: Vitamin D 25(OH) Sta tus Range Deficiency <20 ng/mL (50nmol/L) Insufficiency 20 - 30 ng/mL (50 - 75 nmol/L) Sufficiency 30 - 100 ng/mL (75 - 250 nmol/L) Toxicity >100 ng/mL (>250 nmol/L) Platelet mean volume Malick-Ec ker (Bld) [Entitic vol]Ordered By: Alexsander Casanova on 10-18-2023 Platelet mean volume (Bld) [Entitic vol] 11.8 fL 6.2-12.0 [facility] Protein Test strip Ql (U)Ord ered By: Alexsander Casanova on 10-18-2023 Protein Ql (U) Negative Negative [facility] RBC Auto (Bld) [#/Vol]Ordere d By: Alexsander Casanova on 10-18-2023 RBC (Bld) [#/Vol] 4.39 10*6/uL 4.6-6.2 [facility] Serum or plasma calcium butch urement (mass/volume)Ordered By: Alexsander Casanova on 10-18-2023 Calcium [Mass/Vol] 9.4 mg/dL 8.5-10.1 [facility] Serum or plasma creatinine m easurement (mass/volume)Ordered By: Alexsander Casanova on 10-18-2023 Creatinine [Mass/Vol] 1.06 mg/dL 0.70-1.30 [facility] Comment on above: The validity of the calculated GFR & GFRAA in patients over 70 years has not been determined. Clinical correlation is essential. Serum or plasma thyroid stim ulating hormone (TSH) measurement (units/volume)Ordered By: Alexsander Casanova on 10-18-2023 TSH Qn 2.14 uIU/mL 0.358-3.74 [facility] Serum or plasma urea nitroge n measurement (mass/volume)Ordered By: Alexsander Casanova on 10-18-2023 Urea nitrogen [Mass/Vol] 10 mg/dL 7-18 [facility] Squamous epithelial cells de tection in urine sediment by light microscopyOrdered By: Alexsander Casanova on 10-18-2023 Epithelial cells.squamous LM Ql (Urine sed) 0 SEEN /hpf 0-5 [facility] Thin prep Papanicolaou smear with manual screeningOrdered By: Alexsander Casanova on 10-18-2023 Thin prep Papanicolaou smear with manual screening 3.9 g/dL 3.2-5.0 [facility] Thin prep Papanicolaou smear with manual screening 25 U/L 15-37 [facility] Thin prep Papanicolaou smear with manual screening 6 5-15 [facility] Thin prep Papanicolaou smear with manual screening 1.04 ng/dL 0.76-1.46 [facility] Urine blood detectionOrdered By: Alexsander Casanova on 10-18-2023 RBC Ql (U) Negative Negative [facility] Urine clarityOrdered By: Eric Casanova on 10-18-2023 Clarity (U) Clear Clear [facility] Urine color determinationOrd ered By: Alexsander Casanova on 10-18-2023 Color (U) Yellow Yellow [facility] Urine glucose detectionOrder ed By: Alexsander Casanova on 10-18-2023 Glucose Ql (U) Normal mg/dl Normal [facility] Urine leukocyte esterase det ection by dipstickOrdered By: Alexsander Casanova on 10-18-2023 Leukocyte esterase Test strip Ql (U) Negative Negative [facility] Urine pHOrdered By: Alexsander appiah on 10-18-2023 pH (U) 7.0 [pH] 5.0 - 8.0 [facility] Urine sediment bacteria coun t by microscopy (number/high power field)Ordered By: Alexsander Casanova on 10-18-2023 Bacteria LM.HPF (Urine sed) [#/Area] 0 /[HPF] None Seen [facility] Urine specific gravity measu rementOrdered By: Alexsander Casanova on 10-18-2023 Specific gravity (U) [Rel density] 1.005 1.002-1.030 [facility] Urine urobilinogen measureme ntOrdered By: Alexsander Casanova on 10-18-2023 Urobilinogen Ql (U) Normal mg/dl Normal [facility] Very low density lipoprotein (VLDL) cholesterol measurementOrdered By: Alexsander Casanova on 10-18-2023 Cholesterol in VLDL Calc [Moles/Vol] 15 mg/dL 5-40 [facility] Whole blood hemoglobin A1c/t otal hemoglobin ratio (mass fraction)Ordered By: Alexsander Casanova on 10-18-2023 HbA1c (Bld) [Mass fraction] 5.6 % 3.8-5.6 [facility] Comment on above: Normal < 5.7 % Predi abetic 5.7 - 6.4 % Diabetic >or= 6.5 % Please note range changes. Absolute lymphocyte countOrd ered By: Alexsander Casanova on 06-22-2023 Lymphocytes Auto (Unsp spec) [#/Vol] 1.83 10*3/uL 0.83-4.51 [facility] Basophil percentageOrdered B y: Alexsander Casanova on 06-22-2023 Basophil percentage 0 SEEN /hpf 0-[address] [facility] Basophils/100 WBC (Bld) 0.5 % 0-1 [facility] Bilirubin [Mass/Vol] 0.40 mg/dL 0.20-1.[address] [facility] Comment on above: For patients on eltr ombopag therapy, use of Dimension [place] TBIL is not recommended. Chloride [Moles/Vol] 107 mmol/L 98-[address] [facility] Cholesterol [Mass/Vol] 92 mg/dL <200 [facility] Comment on above: <200 mg/dL Desirable 200-240 mg/dL Borderline >240 mg/dL High Risk Eosinophils/100 WBC (Bld) 1.9 % 0-5 [facility] Glucose [Mass/Vol] 114 mg/dL 74-106 [facility] Comment on above: Fasting Glucose resu lt from 100 to 125 mg/dL suggests IMPAIRED HOMEOSTASIS per A.D.A. criteria. Neutrophils (Bld) [#/Vol] 5.1 10*3/uL 2.0-7.7 [facility] Neutrophils/100 WBC (Bld) 63.8 % 47-70 [facility] Potassium [Moles/Vol] 3.9 mmol/L 3.5-5.1 [facility] Protein [Mass/Vol] 7.2 g/dL 6.4-8.2 [facility] Sodium [Moles/Vol] 138 mmol/L 136-145 [facility] Triglyceride [Mass/Vol] 101 mg/dL <199 [facility] Comment on above: The drugs N-Acetylcy steine and Metamizole may falsely depress this assay.Serum Triglycerides Reference Interval Normal <150 mg/dL Borderline high 150 - 199 mg/dL High 200 - 499 mg/dL Very High > or = 500 mg/dL WBC (Bld) [#/Vol] 8.0 10*3/uL 4.4-11.0 [facility] Bilirubin Test strip Ql (U)O rdered By: Alexsander Casanova on 06-22-2023 Bilirubin Ql (U) Negative Negative [facility] Blood erythrocytes count (nu mber/volume)Ordered By: Alexsander Casanova on 06-22-2023 RBC (Bld) [#/Vol] 4.53 10*6/uL 4.6-6.2 [facility] Blood hemoglobin measurement (mass/volume)Ordered By: Alexsander Casanova on 06-22-2023 Hemoglobin (Bld) [Mass/Vol] 14.6 g/dL 13.0-16.5 [facility] Blood lymphocytes/100 leukoc ytesOrdered By: Alexsander Casanova on 06-22-2023 Lymphocytes/100 WBC (Bld) 22.9 % 19-41 [facility] Blood monocytes/100 leukocyt esOrdered By: Alexsander Casanova on 06-22-2023 Monocytes/100 WBC (Bld) 10.5 % 0-10 [facility] Blood platelet mean volumeOr dered By: Alexsander Casanova on 06-22-2023 Platelet mean volume (Bld) [Entitic vol] 11.3 fL 6.2-12.0 [facility] Determination of erythrocyte mean corpuscular volume (MCV)Ordered By: Alexsander Casanova on 06-22-2023 MCV (RBC) [Entitic vol] 97.1 fL 80-94 [facility] Hematocrit Auto (Bld) [Volum e fraction]Ordered By: Alexsander Casanova on 06-22-2023 Hematocrit (Bld) [Volume fraction] 44.0 % 40-54 [facility] Ketones Test strip Ql (U)Ord ered By: Alexsander Casanova on 06-22-2023 Ketones Ql (U) Negative Negative [facility] Laboratory - Chemistry and C hemistry - challengeOrdered By: Alexsander Casanova on 06-22-2023 ALP [Catalytic activity/Vol] 80 U/L 45-117 [facility] ALT [Catalytic activity/Vol] 33 U/L 16-61 [facility] CO2 [Moles/Vol] 27.0 mmol/L 21.0-32.0 [facility] Free T4 [Mass/Vol] 0.92 ng/dL 0.76-1.46 [facility] Globulin (S) [Mass/Vol] 3.3 g/dL 2.2-4.2 [facility] Urea nitrogen/Creatinine [Mass ratio] 8.9 mg/mg 10-20 [facility] Laboratory - Hematology and Cell countsOrdered By: Alexsander Casanova on 06-22-2023 Erythrocyte distribution width (RBC) [Entitic vol] 43.3 fL 35.1-43.9 [facility] Erythrocyte distribution width (RBC) [Ratio] 12.0 % 11.6-14.6 [facility] Immature granulocytes/100 WBC (Bld) 0.400 % 0.0-0.9 [facility] Comment on above: IG% - Immature Granu locytes (promyelocytes, myelocytes and metamyelocytes) > 1% indicates that a LEFT SHIFT is Present. MCH (RBC) [Entitic mass] 32.2 pg 27.0-32.0 [facility] Nucleated RBC/100 WBC (Bld) [Ratio] 0 % 0-5 [facility] MCHC Auto (RBC) [Mass/Vol]Or dered By: Alexsander Casanova on 06-22-2023 MCHC (RBC) [Mass/Vol] 33.2 g/dL 32-36 [facility] Mucus LM Ql (Urine sed)Order ed By: Alexsander Casanova on 06-22-2023 Mucus Ql (Urine sed) 0 SEEN /hpf [facility] Nitrite Test strip Ql (U)Ord ered By: Alexsander Casanova on 06-22-2023 Nitrite Ql (U) Negative Negative [facility] No Panel InformationOrdered By: Alexsander Casanova on 06-22-2023 Estimated GFR (MDRD) Amer 95 mL/min >60 [facility] Comment on above: GFR Calc Estimated GFR (MDRD) Non-Af Amer 78 mL/min >60 [facility] Comment on above: Non- GFR Calc Thyroid Stimulating Hormone (TSH) 2.33 uIU/mL 0.358-3.74 [facility] Vitamin D 25-Hydroxy 62.5 ng/mL [facility] Comment on above: Vitamin D 25(OH) Sta tus Range Deficiency <20 ng/mL (50nmol/L) Insufficiency 20 - 30 ng/mL (50 - 75 nmol/L) Sufficiency 30 - 100 ng/mL (75 - 250 nmol/L) Toxicity >100 ng/mL (>250 nmol/L) Platelets bldOrdered By: Eric Casanova on 06-22-2023 Platelets (Bld) [#/Vol] 224 10*3/uL 150-450 [facility] Protein Test strip Ql (U)Ord ered By: Alexsander Casanova on 06-22-2023 Protein Ql (U) Negative Negative [facility] Serum or plasma albumin butch urement (mass/volume)Ordered By: Alexsander Casanova on 06-22-2023 Albumin [Mass/Vol] 3.9 g/dL 3.2-5.0 [facility] Serum or plasma albumin/glob ulin mass ratioOrdered By: Alexsandre Casanova on 06-22-2023 Albumin/Globulin [Mass ratio] 1.2 {ratio} 0.9-2.4 [facility] Serum or plasma calcium butch urement (mass/volume)Ordered By: Alexsander Casanova on 06-22-2023 Calcium [Mass/Vol] 9.0 mg/dL 8.5-10.1 [facility] Serum or plasma cholesterol in HDL measurement (mass/volume)Ordered By: Alexsander Casanova on 06-22-2023 Cholesterol in HDL [Mass/Vol] 49 mg/dL >40 [facility] Comment on above: The drugs N-Acetylcy steine and Metamizole may falsely depress this assay. Reference Range HDL <40 mg/dL Low HDL Cholesterol HDL >or= 60 mg/dL High HDL Cholesterol Serum or plasma cholesterol in VLDL measurement (mass/volume)Ordered By: Alexsander Casanova on 06-22-2023 Cholesterol in VLDL [Mass/Vol] 20 mg/dL 5-40 [facility] Serum or plasma creatinine m easurement (mass/volume)Ordered By: Alexsander Casanova on 06-22-2023 Creatinine [Mass/Vol] 1.01 mg/dL 0.70-1.30 [facility] Comment on above: The validity of the calculated GFR & GFRAA in patients over 70 years has not been determined. Clinical correlation is essential. Serum or plasma low density lipoprotein (LDL) cholesterol measurement (mass/volume)Ordered By: Alexsander Casanova on 06-22-2023 Cholesterol in LDL [Mass/Vol] 23 mg/dL 0-130 [facility] Serum or plasma urea nitroge n measurement (mass/volume)Ordered By: Alexsander Casanova on 06-22-2023 Urea nitrogen [Mass/Vol] 9 mg/dL 7-18 [facility] Squamous epithelial cells de tection in urine sediment by light microscopyOrdered By: Alexsander Casanova on 06-22-2023 Epithelial cells.squamous LM Ql (Urine sed) 0 SEEN /hpf 0-5 [facility] Thin prep Papanicolaou smear with manual screeningOrdered By: Alexsander Casanova on 06-22-2023 Thin prep Papanicolaou smear with manual screening 21 U/L 15-37 [facility] Thin prep Papanicolaou smear with manual screening 4 5-15 [facility] Urine blood detectionOrdered By: Alexsander Casanova on 06-22-2023 RBC Ql (U) Negative Negative [facility] RBC Ql (U) 0 SEEN /hpf 0-5 [facility] Urine clarityOrdered By: Eric Casanova on 06-22-2023 Clarity (U) Clear Clear [facility] Urine color determinationOrd ered By: Alexsander Casanova on 06-22-2023 Color (U) Yellow Yellow [facility] Urine glucose detectionOrder ed By: Alexsander Casanova on 06-22-2023 Glucose Ql (U) Normal mg/dl Normal [facility] Urine leukocyte esterase det ection by dipstickOrdered By: Alexsander Casanova on 06-22-2023 Leukocyte esterase Test strip Ql (U) Negative Negative [facility] Urine pHOrdered By: Alexsander appiah on 06-22-2023 pH (U) 7.0 [pH] 5.0 - 8.0 [facility] Urine sediment bacteria coun t by microscopy (number/high power field)Ordered By: Alexsander Casanova on 06-22-2023 Bacteria LM.HPF (Urine sed) [#/Area] 0 /[HPF] None Seen [facility] Urine specific gravity measu rementOrdered By: Alexsander Casanova on 06-22-2023 Specific gravity (U) [Rel density] 1.010 1.002-1.030 [facility] Urobilinogen Auto test strip Ql (U)Ordered By: Alexsander Casanova on 06-22-2023 Urobilinogen Ql (U) Normal mg/dl Normal [facility] Whole blood hemoglobin A1c/t otal hemoglobin ratio (mass fraction)Ordered By: Alexsander Casanova on 06-22-2023 HbA1c (Bld) [Mass fraction] 6.0 % 3.8-5.6 [facility] Comment on above: Normal < 5.7 % Predi abetic 5.7 - 6.4 % Diabetic >or= 6.5 % Please note range changes. Absolute lymphocyte countOrd ered By: Dr. Casanova on 01-11-2023 Lymphocytes Auto (Unsp spec) [#/Vol] 2.11 10*3/uL 0.83-4.51 [facility] Basophil percentageOrdered B y: Dr. Casanova on 01-11-2023 Basophil percentage 0 SEEN /hpf 0-[address] [facility] Basophils/100 WBC (Bld) 0.5 % 0-1 [facility] Bilirubin [Mass/Vol] 0.40 mg/dL 0.20-1.[address] [facility] Comment on above: For patients on eltr ombopag therapy, use of Dimension [place] TBIL is not recommended. Chloride [Moles/Vol] 109 mmol/L 98-[address] [facility] Cholesterol [Mass/Vol] 107 mg/dL <200 [facility] Comment on above: <200 mg/dL Desirable 200-240 mg/dL Borderline >240 mg/dL High Risk Eosinophils/100 WBC (Bld) 1.6 % 0-5 [facility] Glucose [Mass/Vol] 105 mg/dL 74-106 [facility] Comment on above: Fasting Glucose resu lt from 100 to 125 mg/dL suggests IMPAIRED HOMEOSTASIS per A.D.A. criteria. Neutrophils (Bld) [#/Vol] 6.0 10*3/uL 2.0-7.7 [facility] Neutrophils/100 WBC (Bld) 64.3 % 47-70 [facility] Potassium [Moles/Vol] 3.8 mmol/L 3.5-5.1 [facility] Protein [Mass/Vol] 7.2 g/dL 6.4-8.2 [facility] Sodium [Moles/Vol] 138 mmol/L 136-145 [facility] Triglyceride [Mass/Vol] 158 mg/dL <199 [facility] Comment on above: The drugs N-Acetylcy steine and Metamizole may falsely depress this assay.Serum Triglycerides Reference Interval Normal <150 mg/dL Borderline high 150 - 199 mg/dL High 200 - 499 mg/dL Very High > or = 500 mg/dL WBC (Bld) [#/Vol] 9.4 10*3/uL 4.4-11.0 [facility] Bilirubin Test strip Ql (U)O rdered By: Dr. Casanova on 01-11-2023 Bilirubin Ql (U) Negative Negative [facility] Blood erythrocytes count (nu mber/volume)Ordered By: Dr. Casanova on 01-11-2023 RBC (Bld) [#/Vol] 4.67 10*6/uL 4.6-6.2 [facility] Blood hemoglobin measurement (mass/volume)Ordered By: Dr. Casanova on 01-11-2023 Hemoglobin (Bld) [Mass/Vol] 15.3 g/dL 13.0-16.5 [facility] Blood lymphocytes/100 leukoc ytesOrdered By: Dr. Casanova on 01-11-2023 Lymphocytes/100 WBC (Bld) 22.6 % 19-41 [facility] Blood monocytes/100 leukocyt esOrdered By: Dr. Casanova on 01-11-2023 Monocytes/100 WBC (Bld) 10.7 % 0-10 [facility] Blood platelet mean volumeOr dered By: Dr. Casanova on 01-11-2023 Platelet mean volume (Bld) [Entitic vol] 11.8 fL 6.2-12.0 [facility] Determination of erythrocyte mean corpuscular volume (MCV)Ordered By: Dr. Casanova on 01-11-2023 MCV (RBC) [Entitic vol] 97.2 fL 80-94 [facility] Hematocrit Auto (Bld) [Volum e fraction]Ordered By: Dr. Casanova on 01-11-2023 Hematocrit (Bld) [Volume fraction] 45.4 % 40-54 [facility] Ketones Test strip Ql (U)Ord ered By: Dr. Casanova on 01-11-2023 Ketones Ql (U) Negative Negative [facility] Laboratory - Chemistry and C hemistry - challengeOrdered By: Dr. Casanova on 01-11-2023 ALP [Catalytic activity/Vol] 102 U/L 45-117 [facility] ALT [Catalytic activity/Vol] 27 U/L 16-61 [facility] CO2 [Moles/Vol] 26.0 mmol/L 21.0-32.0 [facility] Free T4 [Mass/Vol] 0.97 ng/dL 0.76-1.46 [facility] Globulin (S) [Mass/Vol] 3.4 g/dL 2.2-4.2 [facility] Urea nitrogen/Creatinine [Mass ratio] 7.0 mg/mg 10-20 [facility] Laboratory - Hematology and Cell countsOrdered By: Dr. Casanova on 01-11-2023 Erythrocyte distribution width (RBC) [Entitic vol] 43.7 fL 35.1-43.9 [facility] Erythrocyte distribution width (RBC) [Ratio] 12.2 % 11.6-14.6 [facility] Immature granulocytes/100 WBC (Bld) 0.300 % 0.0-0.9 [facility] Comment on above: IG% - Immature Granu locytes (promyelocytes, myelocytes and metamyelocytes) > 1% indicates that a LEFT SHIFT is Present. MCH (RBC) [Entitic mass] 32.8 pg 27.0-32.0 [facility] Nucleated RBC/100 WBC (Bld) [Ratio] 0 % 0-5 [facility] MCHC Auto (RBC) [Mass/Vol]Or dered By: Dr. Casanova on 01-11-2023 MCHC (RBC) [Mass/Vol] 33.7 g/dL 32-36 [facility] Mucus LM Ql (Urine sed)Order ed By: Dr. Casanova on 01-11-2023 Mucus Ql (Urine sed) 0 SEEN /hpf [facility] Nitrite Test strip Ql (U)Ord ered By: Dr. Casanova on 01-11-2023 Nitrite Ql (U) Negative Negative [facility] No Panel InformationOrdered By: Dr. Casanova on 01-11-2023 Estimated GFR (MDRD) Amer 97 mL/min >60 [facility] Comment on above: GFR Calc Estimated GFR (MDRD) Non-Af Amer 80 mL/min >60 [facility] Comment on above: Non- GFR Calc Thyroid Stimulating Hormone (TSH) 1.78 uIU/mL 0.358-3.74 [facility] Vitamin D 25-Hydroxy 79.8 ng/mL [facility] Comment on above: Vitamin D 25(OH) Sta tus Range Deficiency <20 ng/mL (50nmol/L) Insufficiency 20 - 30 ng/mL (50 - 75 nmol/L) Sufficiency 30 - 100 ng/mL (75 - 250 nmol/L) Toxicity >100 ng/mL (>250 nmol/L) Platelets bldOrdered By: Dr. Casanova on 01-11-2023 Platelets (Bld) [#/Vol] 207 10*3/uL 150-450 [facility] Protein Test strip Ql (U)Ord ered By: Dr. Casanova on 01-11-2023 Protein Ql (U) Negative Negative [facility] Serum or plasma albumin butch urement (mass/volume)Ordered By: Dr. Casanova on 01-11-2023 Albumin [Mass/Vol] 3.8 g/dL 3.2-5.0 [facility] Serum or plasma albumin/glob ulin mass ratioOrdered By: Dr. Casanova on 01-11-2023 Albumin/Globulin [Mass ratio] 1.1 {ratio} 0.9-2.4 [facility] Serum or plasma calcium butch urement (mass/volume)Ordered By: Dr. Casanova on 01-11-2023 Calcium [Mass/Vol] 9.4 mg/dL 8.5-10.1 [facility] Serum or plasma cholesterol in HDL measurement (mass/volume)Ordered By: Dr. Casanova on 01-11-2023 Cholesterol in HDL [Mass/Vol] 42 mg/dL >40 [facility] Comment on above: The drugs N-Acetylcy steine and Metamizole may falsely depress this assay. Reference Range HDL <40 mg/dL Low HDL Cholesterol HDL >or= 60 mg/dL High HDL Cholesterol Serum or plasma cholesterol in VLDL measurement (mass/volume)Ordered By: Dr. Casanova on 01-11-2023 Cholesterol in VLDL [Mass/Vol] 32 mg/dL 5-40 [facility] Serum or plasma creatinine m easurement (mass/volume)Ordered By: Dr. Casanova on 01-11-2023 Creatinine [Mass/Vol] 0.99 mg/dL 0.70-1.30 [facility] Comment on above: The validity of the calculated GFR & GFRAA in patients over 70 years has not been determined. Clinical correlation is essential. Serum or plasma low density lipoprotein (LDL) cholesterol measurement (mass/volume)Ordered By: Dr. Casanova on 01-11-2023 Cholesterol in LDL [Mass/Vol] 33 mg/dL 0-130 [facility] Serum or plasma urea nitroge n measurement (mass/volume)Ordered By: Dr. Casanova on 01-11-2023 Urea nitrogen [Mass/Vol] 7 mg/dL 7-18 [facility] Squamous epithelial cells de tection in urine sediment by light microscopyOrdered By: Dr. Casanova on 01-11-2023 Epithelial cells.squamous LM Ql (Urine sed) 0 SEEN /hpf 0-5 [facility] Thin prep Papanicolaou smear with manual screeningOrdered By: Dr. Casanova on 01-11-2023 Thin prep Papanicolaou smear with manual screening 21 U/L 15-37 [facility] Thin prep Papanicolaou smear with manual screening 3 5-15 [facility] Urine blood detectionOrdered By: Dr. Casanova on 01-11-2023 RBC Ql (U) 10 /ul Negative [facility] RBC Ql (U) 0 SEEN /hpf 0-5 [facility] Urine clarityOrdered By: Dr. Casanova on 01-11-2023 Clarity (U) Clear Clear [facility] Urine color determinationOrd ered By: Dr. Casanova on 01-11-2023 Color (U) Yellow Yellow [facility] Urine glucose detectionOrder ed By: Dr. Casanova on 01-11-2023 Glucose Ql (U) 250 mg/dl Normal [facility] Urine leukocyte esterase det ection by dipstickOrdered By: Dr. Casanova on 01-11-2023 Leukocyte esterase Test strip Ql (U) Negative Negative [facility] Urine pHOrdered By: Dr. Verna del real on 01-11-2023 pH (U) 5.0 [pH] 5.0 - 8.0 [facility] Urine sediment bacteria coun t by microscopy (number/high power field)Ordered By: Dr. Casanova on 01-11-2023 Bacteria LM.HPF (Urine sed) [#/Area] 0 /[HPF] None Seen [facility] Urine specific gravity measu rementOrdered By: Dr. Casanova on 01-11-2023 Specific gravity (U) [Rel density] 1.015 1.002-1.030 [facility] Urobilinogen Auto test strip Ql (U)Ordered By: Dr. Casanova on 01-11-2023 Urobilinogen Ql (U) Normal mg/dl Normal [facility] Whole blood hemoglobin A1c/t otal hemoglobin ratio (mass fraction)Ordered By: Dr. Casanova on 01-11-2023 HbA1c (Bld) [Mass fraction] 5.9 % 3.8-5.6 [facility] Comment on above: Normal < 5.7 % Predi abetic 5.7 - 6.4 % Diabetic >or= 6.5 % Please note range changes. Absolute lymphocyte countOrd ered By: Dr. Casanova on 10-13-2022 Lymphocytes Auto (Unsp spec) [#/Vol] 2.10 10*3/uL 0.83-4.51 [facility] Basophil percentageOrdered B y: Dr. Casanova on 10-13-2022 Basophil percentage 0 SEEN /hpf 0-[address] [facility] Basophils/100 WBC (Bld) 0.4 % 0-1 [facility] Bilirubin [Mass/Vol] 0.40 mg/dL 0.20-1.[address] [facility] Comment on above: For patients on eltr ombopag therapy, use of Dimension [place] TBIL is not recommended. Chloride [Moles/Vol] 104 mmol/L 98-[address] [facility] Cholesterol [Mass/Vol] 121 mg/dL <200 [facility] Comment on above: <200 mg/dL Desirable 200-240 mg/dL Borderline >240 mg/dL High Risk Eosinophils/100 WBC (Bld) 1.4 % 0-5 [facility] Glucose [Mass/Vol] 88 mg/dL 74-106 [facility] Neutrophils (Bld) [#/Vol] 5.7 10*3/uL 2.0-7.7 [facility] Neutrophils/100 WBC (Bld) 61.5 % 47-70 [facility] Potassium [Moles/Vol] 4.3 mmol/L 3.5-5.1 [facility] Protein [Mass/Vol] 6.7 g/dL 6.4-8.2 [facility] Sodium [Moles/Vol] 139 mmol/L 136-145 [facility] Triglyceride [Mass/Vol] 89 mg/dL <199 [facility] Comment on above: The drugs N-Acetylcy steine and Metamizole may falsely depress this assay.Serum Triglycerides Reference Interval Normal <150 mg/dL Borderline high 150 - 199 mg/dL High 200 - 499 mg/dL Very High > or = 500 mg/dL WBC (Bld) [#/Vol] 9.3 10*3/uL 4.4-11.0 [facility] Bilirubin Test strip Ql (U)O rdered By: Dr. Casanova on 10-13-2022 Bilirubin Ql (U) Negative Negative [facility] Blood erythrocytes count (nu mber/volume)Ordered By: Dr. Casanova on 10-13-2022 RBC (Bld) [#/Vol] 4.21 10*6/uL 4.6-6.2 [facility] Blood hemoglobin measurement (mass/volume)Ordered By: Dr. Casanova on 10-13-2022 Hemoglobin (Bld) [Mass/Vol] 13.6 g/dL 13.0-16.5 [facility] Blood lymphocytes/100 leukoc ytesOrdered By: Dr. Casanova on 10-13-2022 Lymphocytes/100 WBC (Bld) 22.6 % 19-41 [facility] Blood monocytes/100 leukocyt esOrdered By: Dr. Casanova on 10-13-2022 Monocytes/100 WBC (Bld) 13.5 % 0-10 [facility] Blood platelet mean volumeOr dered By: Dr. Casanova on 10-13-2022 Platelet mean volume (Bld) [Entitic vol] 11.7 fL 6.2-12.0 [facility] Determination of erythrocyte mean corpuscular volume (MCV)Ordered By: Dr. Casanova on 10-13-2022 MCV (RBC) [Entitic vol] 98.1 fL 80-94 [facility] Hematocrit Auto (Bld) [Volum e fraction]Ordered By: Dr. Casanova on 10-13-2022 Hematocrit (Bld) [Volume fraction] 41.3 % 40-54 [facility] Ketones Test strip Ql (U)Ord ered By: Dr. Casanova on 10-13-2022 Ketones Ql (U) Negative Negative [facility] Laboratory - Chemistry and C hemistry - challengeOrdered By: Dr. Casanova on 10-13-2022 ALP [Catalytic activity/Vol] 90 U/L 45-117 [facility] ALT [Catalytic activity/Vol] 38 U/L 16-61 [facility] CO2 [Moles/Vol] 29.0 mmol/L 21.0-32.0 [facility] Free T4 [Mass/Vol] 0.95 ng/dL 0.76-1.46 [facility] Globulin (S) [Mass/Vol] 2.9 g/dL 2.2-4.2 [facility] Urea nitrogen/Creatinine [Mass ratio] 16.5 mg/mg 10-20 [facility] Laboratory - Hematology and Cell countsOrdered By: Dr. Caasnova on 10-13-2022 Erythrocyte distribution width (RBC) [Entitic vol] 45.1 fL 35.1-43.9 [facility] Erythrocyte distribution width (RBC) [Ratio] 12.6 % 11.6-14.6 [facility] Immature granulocytes/100 WBC (Bld) 0.600 % 0.0-0.9 [facility] Comment on above: IG% - Immature Granu locytes (promyelocytes, myelocytes and metamyelocytes) > 1% indicates that a LEFT SHIFT is Present. MCH (RBC) [Entitic mass] 32.3 pg 27.0-32.0 [facility] Nucleated RBC/100 WBC (Bld) [Ratio] 0 % 0-5 [facility] MCHC Auto (RBC) [Mass/Vol]Or dered By: Dr. Casanova on 10-13-2022 MCHC (RBC) [Mass/Vol] 32.9 g/dL 32-36 [facility] Mucus LM Ql (Urine sed)Order ed By: Dr. Casanova on 10-13-2022 Mucus Ql (Urine sed) 0 SEEN /hpf [facility] Nitrite Test strip Ql (U)Ord ered By: Dr. Casanova on 10-13-2022 Nitrite Ql (U) Negative Negative [facility] No Panel InformationOrdered By: Dr. Casanova on 10-13-2022 Estimated GFR (MDRD) Amer 82 mL/min >60 [facility] Comment on above: GFR Calc Estimated GFR (MDRD) Non-Af Amer 68 mL/min >60 [facility] Comment on above: Non- GFR Calc Thyroid Stimulating Hormone (TSH) 1.85 uIU/mL 0.358-3.74 [facility] Vitamin D 25-Hydroxy 70.0 ng/mL [facility] Comment on above: Vitamin D 25(OH) Sta tus Range Deficiency <20 ng/mL (50nmol/L) Insufficiency 20 - 30 ng/mL (50 - 75 nmol/L) Sufficiency 30 - 100 ng/mL (75 - 250 nmol/L) Toxicity >100 ng/mL (>250 nmol/L) Platelets bldOrdered By: Dr. Casanova on 10-13-2022 Platelets (Bld) [#/Vol] 205 10*3/uL 150-450 [facility] Protein Test strip Ql (U)Ord ered By: Dr. Casanova on 10-13-2022 Protein Ql (U) Negative Negative [facility] Serum or plasma albumin butch urement (mass/volume)Ordered By: Dr. Casanova on 10-13-2022 Albumin [Mass/Vol] 3.8 g/dL 3.2-5.0 [facility] Serum or plasma albumin/glob ulin mass ratioOrdered By: Dr. Casanova on 10-13-2022 Albumin/Globulin [Mass ratio] 1.3 {ratio} 0.9-2.4 [facility] Serum or plasma calcium butch urement (mass/volume)Ordered By: Dr. Casanova on 10-13-2022 Calcium [Mass/Vol] 9.0 mg/dL 8.5-10.1 [facility] Serum or plasma cholesterol in HDL measurement (mass/volume)Ordered By: Dr. Casanova on 10-13-2022 Cholesterol in HDL [Mass/Vol] 56 mg/dL >40 [facility] Comment on above: The drugs N-Acetylcy steine and Metamizole may falsely depress this assay. Reference Range HDL <40 mg/dL Low HDL Cholesterol HDL >or= 60 mg/dL High HDL Cholesterol Serum or plasma cholesterol in VLDL measurement (mass/volume)Ordered By: Dr. Casanova on 10-13-2022 Cholesterol in VLDL [Mass/Vol] 18 mg/dL 5-40 [facility] Serum or plasma creatinine m easurement (mass/volume)Ordered By: Dr. Casanova on 10-13-2022 Creatinine [Mass/Vol] 1.15 mg/dL 0.70-1.30 [facility] Comment on above: The validity of the calculated GFR & GFRAA in patients over 70 years has not been determined. Clinical correlation is essential. Serum or plasma low density lipoprotein (LDL) cholesterol measurement (mass/volume)Ordered By: Dr. Casanova on 10-13-2022 Cholesterol in LDL [Mass/Vol] 47 mg/dL 0-130 [facility] Serum or plasma urea nitroge n measurement (mass/volume)Ordered By: Dr. Casanova on 10-13-2022 Urea nitrogen [Mass/Vol] 19 mg/dL 7-18 [facility] Squamous epithelial cells de tection in urine sediment by light microscopyOrdered By: Dr. Casanova on 10-13-2022 Epithelial cells.squamous LM Ql (Urine sed) 0 SEEN /hpf 0-5 [facility] Thin prep Papanicolaou smear with manual screeningOrdered By: Dr. Casanova on 10-13-2022 Thin prep Papanicolaou smear with manual screening 14 U/L 15-37 [facility] Thin prep Papanicolaou smear with manual screening 6 5-15 [facility] Urine blood detectionOrdered By: Dr. Casanova on 10-13-2022 RBC Ql (U) Negative Negative [facility] RBC Ql (U) 0 SEEN /hpf 0-5 [facility] Urine clarityOrdered By: Dr. Casanova on 10-13-2022 Clarity (U) Clear Clear [facility] Urine color determinationOrd ered By: Dr. Casanova on 10-13-2022 Color (U) Yellow Yellow [facility] Urine glucose detectionOrder ed By: Dr. Casanova on 10-13-2022 Glucose Ql (U) Normal mg/dl Normal [facility] Urine leukocyte esterase det ection by dipstickOrdered By: Dr. Casanova on 10-13-2022 Leukocyte esterase Test strip Ql (U) Negative Negative [facility] Urine pHOrdered By: Dr. Verna del real on 10-13-2022 pH (U) 7.0 [pH] 5.0 - 8.0 [facility] Urine sediment bacteria coun t by microscopy (number/high power field)Ordered By: Dr. Casanova on 10-13-2022 Bacteria LM.HPF (Urine sed) [#/Area] 0 /[HPF] None Seen [facility] Urine specific gravity measu rementOrdered By: Dr. Casanova on 10-13-2022 Specific gravity (U) [Rel density] 1.010 1.002-1.030 [facility] Urobilinogen Auto test strip Ql (U)Ordered By: Dr. Casanova on 10-13-2022 Urobilinogen Ql (U) Normal mg/dl Normal [facility] Whole blood hemoglobin A1c/t otal hemoglobin ratio (mass fraction)Ordered By: Dr. Casanova on 10-13-2022 HbA1c (Bld) [Mass fraction] 5.8 % 3.8-5.6 [facility] Comment on above: Normal < 5.7 % Predi abetic 5.7 - 6.4 % Diabetic >or= 6.5 % Please note range changes. No Panel InformationOrdered By: Aleah Stathopoulos on 07-14-2022 Prostate Specific Antigen Screen 0.17 ng/mL 0.00-4.00 [facility] Comment on above: This test was perfor med using the TPSA assay method for the[facility]. Values obtained with differentassay methods cannot be used interchangably.When changing PSA assays in the course of monitoring apatient, additional sequential testing should be carriedout to confirm baseline values. Absolute lymphocyte counton 03-11-2022 Lymphocytes Auto (Unsp spec) [#/Vol] 1.62 10*3/uL 0.83-4.51 [facility] Work Phone: Basophil percentageon 2021 Basophils/100 WBC (Bld) 0.5 % 0-1 [facility] Work Phone: Bilirubin [Mass/Vol] 0.40 mg/dL 0.20-1.[address] [facility] Work Phone: Comment on above: For patients on eltr ombopag therapy, use of Dimension [place] TBIL is not recommended. Chloride [Moles/Vol] 107 mmol/L 98-[address] [facility] Work Phone: Cholesterol [Mass/Vol] 126 mg/dL <200 [facility] Work Phone: Comment on above: <200 mg/dL Desirable 200-240 mg/dL Borderline >240 mg/dL High Risk Eosinophils/100 WBC (Bld) 1.5 % 0-5 [facility] Work Phone: Glucose [Mass/Vol] 101 mg/dL 74-106 [facility] Work Phone: Comment on above: Fasting Glucose resu lt from 100 to 125 mg/dL suggests IMPAIRED HOMEOSTASIS per A.D.A. criteria. Neutrophils (Bld) [#/Vol] 5.6 10*3/uL 2.0-7.7 [facility] Work Phone: Neutrophils/100 WBC (Bld) 68.5 % 47-70 [facility] Work Phone: Potassium [Moles/Vol] 4.3 mmol/L 3.5-5.1 [facility] Work Phone: Protein [Mass/Vol] 6.6 g/dL 6.4-8.2 [facility] Work Phone: [phone] Sodium [Moles/Vol] 139 mmol/L 136-145 [facility] Work Phone: [phone] Triglyceride [Mass/Vol] 93 mg/dL <199 [facility] Work Phone: [phone] Comment on above: The drugs N-Acetylcy steine and Metamizole may falsely depress this assay.Serum Triglycerides Reference Interval Normal <150 mg/dL Borderline high 150 - 199 mg/dL High 200 - 499 mg/dL Very High > or = 500 mg/dL WBC (Bld) [#/Vol] 8.1 10*3/uL 4.4-11.0 [facility] Work Phone: Blood erythrocytes count (nu mber/volume)on 03-11-2022 RBC (Bld) [#/Vol] 4.26 10*6/uL 4.6-6.2 [facility] Work Phone: Blood hemoglobin measurement (mass/volume)on 03-11-2022 Hemoglobin (Bld) [Mass/Vol] 13.6 g/dL 13.0-16.5 [facility] Work Phone: Blood lymphocytes/100 leukoc yteson 03-11-2022 Lymphocytes/100 WBC (Bld) 19.9 % 19-41 [facility] Work Phone: [phone] Blood monocytes/100 leukocyt eson 03-11-2022 Monocytes/100 WBC (Bld) 9.2 % 0-10 [facility] Work Phone: Blood platelet mean volumeon 03-11-2022 Platelet mean volume (Bld) [Entitic vol] 11.5 fL 6.2-12.0 [facility] Work Phone: [phone] Determination of erythrocyte mean corpuscular volume (MCV)on 03-11-2022 MCV (RBC) [Entitic vol] 97.4 fL 80-94 [facility] Work Phone: Hematocrit Auto (Bld) [Volum e fraction]on 03-11-2022 Hematocrit (Bld) [Volume fraction] 41.5 % 40-54 [facility] Work Phone: [phone] Laboratory - Chemistry and C hemistry - challengeon 03-11-2022 ALP [Catalytic activity/Vol] 95 U/L 45-117 [facility] Work Phone: [phone] ALT [Catalytic activity/Vol] 22 U/L 16-61 [facility] Work Phone: [phone] CO2 [Moles/Vol] 27.0 mmol/L 21.0-32.0 [facility] Work Phone: [phone] Free T4 [Mass/Vol] 0.90 ng/dL 0.76-1.46 [facility] Work Phone: [phone] Globulin (S) [Mass/Vol] 2.8 g/dL 2.2-4.2 [facility] Work Phone: [phone] Urea nitrogen/Creatinine [Mass ratio] 9.1 mg/mg 10-20 [facility] Work Phone: [phone] Laboratory - Hematology and Cell countson 03-11-2022 Erythrocyte distribution width (RBC) [Entitic vol] 44.9 fL 35.1-43.9 [facility] Work Phone: [phone] Erythrocyte distribution width (RBC) [Ratio] 12.5 % 11.6-14.6 [facility] Work Phone: [phone] Immature granulocytes/100 WBC (Bld) 0.400 % 0.0-0.9 [facility] Work Phone: [phone] Comment on above: IG% - Immature Granu locytes (promyelocytes, myelocytes and metamyelocytes) > 1% indicates that a LEFT SHIFT is Present. MCH (RBC) [Entitic mass] 31.9 pg 27.0-32.0 [facility] Work Phone: Nucleated RBC/100 WBC (Bld) [Ratio] 0 % 0-5 [facility] Work Phone: MCHC Auto (RBC) [Mass/Vol]on 03-11-2022 MCHC (RBC) [Mass/Vol] 32.8 g/dL 32-36 [facility] Work Phone: No Panel Informationon 03-11 Estimated GFR (MDRD) Amer 97 mL/min >60 [facility] Work Phone: Comment on above: GFR Calc Estimated GFR (MDRD) Non-Af Amer 80 mL/min >60 [facility] Work Phone: Comment on above: Non- GFR Calc Thyroid Stimulating Hormone (TSH) 2.25 uIU/mL 0.358-3.74 [facility] Work Phone: Vitamin D 25-Hydroxy 69.8 ng/mL [facility] Work Phone: Comment on above: Vitamin D 25(OH) Sta tus Range Deficiency <20 ng/mL (50nmol/L) Insufficiency 20 - 30 ng/mL (50 - 75 nmol/L) Sufficiency 30 - 100 ng/mL (75 - 250 nmol/L) Toxicity >100 ng/mL (>250 nmol/L) Platelets bldon 03-11-2022 Platelets (Bld) [#/Vol] 219 10*3/uL 150-450 [facility] Work Phone: [phone] Serum or plasma albumin butch urement (mass/volume)on 03-11-2022 Albumin [Mass/Vol] 3.8 g/dL 3.2-5.0 [facility] Work Phone: [phone] Serum or plasma albumin/glob ulin mass ratioon 03-11-2022 Albumin/Globulin [Mass ratio] 1.4 {ratio} 0.9-2.4 [facility] Work Phone: [phone] Serum or plasma calcium butch urement (mass/volume)on 03-11-2022 Calcium [Mass/Vol] 8.9 mg/dL 8.5-10.1 [facility] Work Phone: [phone] Serum or plasma cholesterol in HDL measurement (mass/volume)on 03-11-2022 Cholesterol in HDL [Mass/Vol] 48 mg/dL >40 [facility] Work Phone: Comment on above: The drugs N-Acetylcy steine and Metamizole may falsely depress this assay. Reference Range HDL <40 mg/dL Low HDL Cholesterol HDL >or= 60 mg/dL High HDL Cholesterol Serum or plasma cholesterol in VLDL measurement (mass/volume)on 03-11-2022 Cholesterol in VLDL [Mass/Vol] 19 mg/dL 5-40 [facility] Work Phone: Serum or plasma creatinine m easurement (mass/volume)on 03-11-2022 Creatinine [Mass/Vol] 0.99 mg/dL 0.70-1.30 [facility] Work Phone: Comment on above: The validity of the calculated GFR & GFRAA in patients over 70 years has not been determined. Clinical correlation is essential. Serum or plasma low density lipoprotein (LDL) cholesterol measurement (mass/volume)on 03-11-2022 Cholesterol in LDL [Mass/Vol] 59 mg/dL 0-130 [facility] Work Phone: Serum or plasma urea nitroge n measurement (mass/volume)on 03-11-2022 Urea nitrogen [Mass/Vol] 9 mg/dL 7-18 [facility] Work Phone: Thin prep Papanicolaou smear with manual screeningon 03-11-2022 Thin prep Papanicolaou smear with manual screening 14 U/L 15-37 [facility] Work Phone: Thin prep Papanicolaou smear with manual screening 5 5-15 [facility] Work Phone: OBSOLETEon 11-16-2020 OBSOLETE Refill (PULMWS) KALE SHEEHAN ([id number]) 1955 M Date Time Provider Department 11/16/20 EDIS GUY During your visit today, we recorded the following information about you: Ping Burnette PRODUCT SAFETY SPECIALIST 11/17/2020 11:39 AM Signed Pharmacy faxed requesting the following refill. Pending Prescriptions Disp Refills SYMBICORT 160 MCG-4.5 MCG/ACTUATION HFA AEROSOL INHALER 10.2 g 5 Sig: Inhale 1 Puff as instructed twice daily. CHEMA: Yes Patient last appointment: Visit date not found Patient Phone numbers: [phone] (home) Request is for script(s) to be escript to pharmacy. Ping Burnette PRODUCT SAFETY SPECIALIST Allergies As of Date: 11/16/2020 Noted Allergy Reaction IBUPROFEN 03/22/2019 5 - Intolerance Comments: Tremor, severe. FORMOTEROL 03/22/2019 16 - Unknown MOMETASONE 03/22/2019 16 - Unknown Date Reviewed: 05/09/2020 Reviewed by: Edis Guy - Fully Assessed Reason for Visit: Refill Request [94] Order(s):SYMBICORT 160-4.5 mcg/actuation inhalerInhale 1 Puff as instructed twice daily.Disp: 1 InhalerRfl: 11 Prescriptions as of 11/16/2020 Sig: SYMBICORT 160 MCG-4.5 MCG/ACT* Inhale 1 Puff as instructed t* SPIRIVA RESPIMAT 1.25 MCG/ACT* Inhale 2 Puffs as instructed * ATORVASTATIN 20 MG TABLET Take 20 mg by mouth once katherine* ALBUTEROL SULFATE HFA 90 MCG/* Inhale 2 Puffs as instructed. AMLODIPINE 5 MG TABLET Take 5 mg by mouth once daily. FINASTERIDE 5 MG TABLET Take 5 mg by mouth once daily. FLUTICASONE PROPIONATE 50 MCG* Use 1 Donnelly in each nostril d* IPRATROPIUM 20 MCG-ALBUTEROL * Inhale 1 Puff as instructed f* IPRATROPIUM 0.5 MG-ALBUTEROL * Inhale 3 mL as instructed fou* CETIRIZINE 5 MG-PSEUDOEPHEDRI* Take 1 tablet by mouth twice * TAMSULOSIN 0.4 MG CAPSULE Take 0.4 mg by mouth. Problem List As Of Date 11/16/2020 Noted Resolved COPD with acute exacerbation (HCC) [J44.1] 12/31/2018 More... Current non-smoker [Z78.9] 12/31/2018 More... Abdominal pain [R10.9] 12/31/2018 More... Rhinitis [J31.0] 12/31/2018 More... COPD exacerbation (HCC) [J44.1] 12/31/2018 Nicotine use disorder, F17.2 [F17.200] 12/31/2018 Prescriptions ordered this encounter Disp Refills Start End SYMBICORT 160 MCG-4.5 MCG/ACTUATION * 1 In* 11 11/17/2020 Sig: Inhale 1 Puff as instructed twice daily. Medications Discontinued During This Encounter Prescriptions - budesonide-formoterol (SYMBICORT) 160-4.5 mcg/actuation inhaler (Discontinued) Inhale 1 Puff as instructed twice daily. Encounter Status:Closed by EDIS GUY MD on 11/17/20 Normal [facility] CBCon 12-31-2018 Erythrocyte distribution width Ratio (RBC) 12.6 % Normal 11.5-15.0 [facility] Comment on above: Performed By: #### C BC, CK, CMP #### [facility] Laboratory [address] [place], [place] [phone] Hematocrit Volume Fraction (Bld) 43.5 % Normal 39.0-51.0 [facility] Comment on above: Performed By: #### C BC, CK, CMP #### [facility] [address] [place], [place] [phone] Hemoglobin mass conc (Bld) 14.8 g/dL Normal 13.0-17.0 [facility] Comment on above: Performed By: #### C BC, CK, CMP #### [facility] [address] [place], [place] [phone] MCH Entitic mass (RBC) 31.8 pG Normal 26.0-34.0 [facility] Comment on above: Performed By: #### C BC, CK, CMP #### [facility] [address] [place], [place] [phone] MCHC mass conc (RBC) 34.0 g/dL Normal 30.5-36.0 [facility] Comment on above: Performed By: #### C BC, CK, CMP #### [facility] [address] [facility] [phone] MCV Entitic volume (RBC) 93.5 fL Normal 80.0-100.0 [facility] Comment on above: Performed By: #### C BC, CK, CMP #### [facility] [address] [facility] [phone] Platelet mean volume Entitic volume (Bld) 11.6 fL Normal 9.0-12.7 [facility] Comment on above: Performed By: #### C BC, CK, CMP #### [facility] [address] [facility] [phone] Platelets #/vol (Bld) 184 10*3/uL Normal 150-400 [facility] Comment on above: Performed By: #### C BC, CK, CMP #### [facility] [address] [phone] RBC #/vol (Bld) 4.65 10*6/uL Normal 4.20-6.00 [facility] Comment on above: Performed By: #### Ariadne BC, CK, CMP #### [facility] [address] [facility] [phone] WBC #/vol (Bld) 10.07 10*3/uL Normal 3.70-11.00 [facility] Comment on above: Performed By: #### Ariadne BC, CK, CMP #### [facility] [address] [facility] [phone] CKon 12-31-2018 CK enzyme act/vol 405 U/L High 51-298 [facility] Comment on above: Performed By: #### C BC, CK, CMP #### [facility] [address] [place] [address] CNCOon 12-31-2018 CNCO Letter Text Letter Text Normal [facility] CT ABD/PEL W IVCONon 019 CT ABD/PEL W IVCON * * *Final Report* * * DATE OF EXAM: Dec 31 2018 11:15AM [facility] 0530 - CT ABD/PEL W IVCON / PROCEDURE REASON: SBO intermittent or low-grade suspected * * * * Physician Interpretation * * * * EXAMINATION: CT ABDOMEN AND PELVIS WITH IV CONTRAST CLINICAL HISTORY: SBO intermittent or low-grade suspected ABD PAIN, SBO TECHNIQUE: CT of the abdomen and pelvis was performed using standard technique, scanning from just above the dome of the diaphragm to the symphysis pubis. MQ: CTAP_3 Contrast: IV: 150 ml of Omnipaque 300 Oral: 900 ml of 50ML Omnipaque [address] Radiation dose: Integrated Dose-length product (DLP) for this visit = 590 mGy*cm. CT Dose Reduction Employed: Automated exposure control (AEC) COMPARISON: None. RESULT: Liver: No hepatomegaly or focal mass Biliary: The gallbladder is undistended. No evidence of cholelithiasis or inflammatory change. Negative biliary dilatation there is a 5 x 4 mm calcification within the portacaval region which lies outside the pancreas and extrahepatic common duct and likely represents a calcified lymph node. Spleen: No mass. No splenomegaly. Pancreas: No mass or duct dilation. Adrenals: No mass. Both kidneys are normal in size, contour and position and promptly and symmetrically excrete contrast material. There are no obstructive changes. There are no suspicious solid masses. GI tract: The bowel gas pattern is nonobstructive. There is no bowel wall thickening or inflammatory process. The appendix is segmentally visualized and unremarkable. Multiple diverticula are present compatible with diverticulosis. There is no wall thickening or pericolonic inflammatory change to suggest diverticulitis. There is no free air, free fluid or abscess. Lymph nodes: No abdominal or pelvic lymphadenopathy by size criteria. Mesentery/Peritoneum: No ascites or mass. Retroperitoneum: No mass. Vasculature: The aorta is normal course and caliber with mild atherosclerotic plaque. Mesenteric vessels are patent. Pelvis: No mass, ascites or fluid collection. Bones/Soft Tissues: The bony structures are intact with mild degenerative change. Lower thorax: Lung bases are clear. IMPRESSION: No acute intra-abdominal or pelvic process. Nonobstructive bowel gas pattern. Normal appendix. Multiple diverticula are present compatible with diverticulosis. There is no wall thickening or pericolonic inflammatory change to suggest diverticulitis.. Senior Supply Chain Analyst: LUIS Transcribe Date/Time: Dec 31 2018 12:34P Dictated by : ALLEGRA EPPS MD This examination was interpreted and the report reviewed and electronically signed by: ALLEGRA EPPS MD on Dec 31 2018 12:49PM EST [id number] N [facility] Metabolic Panelon 04-07 -2019 Albumin mass conc 4.8 g/dL Normal 3.9-4.9 [facility] Comment on above: Performed By: #### C BC, CK, CMP #### [facility] [address] [address] ALP enzyme act/vol 87 U/L Normal 38-113 [facility] Comment on above: Performed By: #### C BC, CK, CMP #### [facility] [address] [address] ALT enzyme act/vol 15 U/L Normal 10-54 [facility] Comment on above: Performed By: #### C BC, CK, CMP #### [facility] [address] [address] Anion gap molar conc 6 mmol/L Low 9-18 [facility] Comment on above: Performed By: #### C BC, CK, CMP #### [facility] [address] [address] AST enzyme act/vol 19 U/L Normal 14-40 [facility] Comment on above: Performed By: #### C BC, CK, CMP #### [facility] [address] [address] Bilirubin mass conc 0.6 mg/dL Normal 0.2-1.3 [facility] Comment on above: Performed By: #### C BC, CK, CMP #### [facility] [address] [address] Calcium mass conc 9.3 mg/dL Normal 8.5-10.2 [facility] Comment on above: Performed By: #### C BC, CK, CMP #### [facility] [address] [address] Chloride molar conc 100 mmol/L Normal 97-105 [facility] Comment on above: Performed By: #### C BC, CK, CMP #### [facility] [address] [address] CO2 molar conc 30 mmol/L Normal 22-30 [facility] Comment on above: Performed By: #### C BC, CK, CMP #### [facility] [address] [address] Creatinine mass conc 1.13 mg/dL Normal 0.73-1.22 [facility] Comment on above: Performed By: #### C BC, CK, CMP #### [facility] [address] [facility] [phone] eGFR- Amer. >60 Normal [facility] Comment on above: Performed By: #### C BC, CK, CMP #### [facility] [address] [facility] [phone] GFR/1.73 sq M predicted among non-blacks MDRD vol rate/area (S/P/Bld) mL/min/{1.73_m2} Normal [facility] Comment on above: Result Comment: eGFR (Estimated GFR) Units of measure: mL/min/1.73 meters squared eGFR is derived from the reexpressed MDRD Study equation using the following parameters: serum creatinine, age, gender and race. The creatinine assay has been calibrated to be traceable to IDMS. An eGFR <60 mL/min/1.73m2 for >3 months is consistent with chronic kidney disease. Refer to KDOQI guidelines for clinical interpretation. In patients with unstable renal function, e.g. those with acute kidney injury, the eGFR may not accurately reflect actual GFR. Performed By: #### C SHIRLEY, CK, CMP #### [facility] [address] [facility] [phone] Glucose mass conc 95 mg/dL Normal 74-99 [facility] Comment on above: Result Comment: The [place] Diabetes Association (ADA) provides guidance for cutoff values for fasting glucose and random glucose. The ADA defines fasting as no caloric intake for at least 8 hours. Fasting plasma glucose results between 100 to 125 mg/dL indicate increased risk for diabetes (prediabetes). Fasting plasma glucose results greater than or equal to 126 mg/dL meet the criteria for diagnosis of diabetes. In the absence of unequivocal hyperglycemia, results should be confirmed by repeat testing. In a patient with classic symptoms of hyperglycemia or hyperglycemic crisis, random plasma glucose results greater than or equal to 200 mg/dL meet the criteria for diagnosis of diabetes. Reference: Standards of Medical Care in Diabetes 2016, [place] Diabetes Association. Diabetes Care. 2016.39(Suppl 1). Performed By: #### C BC, CK, CMP #### [facility] [address] [facility] [phone] Potassium molar conc 4.0 mmol/L Normal 3.7-5.1 [facility] Comment on above: Performed By: #### C BC, CK, CMP #### [facility] [address] [phone] Protein mass conc 7.0 g/dL Normal 6.3-8.0 [facility] Comment on above: Performed By: #### C BC, CK, CMP #### [facility] [address] [phone] Sodium molar conc 136 mmol/L Normal 136-144 [facility] Comment on above: Performed By: #### C BC, CK, CMP #### [facility] [address] Urea nitrogen mass conc 11 mg/dL Normal 9-24 [facility] Comment on above: Performed By: #### C BC, CK, CMP #### [facility] [address] ECG COMPLETEon 12-31-2018 ECG COMPLETE NAME : KALE SHEEHAN PID : [id number] : 1955 Gender : Male Race : ORD : [id number] Procedure Date : Dec 30 2018 22:19:31 Edit Date : Dec 31 2018 09:20:00 Diagnosis:NORMAL SINUS RHYTHM LEFT AXIS DEVIATION ABNORMAL ECG NSR agree Confirmed by Kuldeep DUONG, RICARDO Bernal ([id number]), mapping editor TONY PATEL ([id number]) on 12/31/2018 9:19:59 AM Ventricular Rate : 85 BPM Atrial Rate : 85 BPM P-R Interval : 140 ms QRS Duration : 84 ms Q-T Interval : 354 ms QTC Calculation(Bezet) : 421 ms P Clio : 78 degrees R Clio : -64 degrees T Clio : 49 degrees Test Reason : Chest Pain Location : 1 : ER 5 Overread By : Kuldeep DUONG EDWARD F. Edited By : TONY PATEL Referred By : , Acquired by : [facility] ED NOTEon 12-31-2018 ED NOTE HNO ID: [id number] Author: Rtuh TruongRn) JANELLE Gordillo Service: ? Author Type: Registered Nurse Type: ED Notes Filed: 12/30/2018 11:59 PM Note Text: Pt and pt family requesting to stay at hospital for admission. Pt and pt family not willing to wait for [place] approval. [facility] ED NOTE HNO ID: [id number] Author: Ruth (Rn) JANELLE Gordillo Service: ? Author Type: Registered Nurse Type: ED Notes Filed: 12/30/2018 11:58 PM Note Text: Message left with [place] hospital transfer line for admission. [facility] ED NOTE HNO ID: [id number] Author: Ruth TruongRn) JANELLE Gordillo Service: ? Author Type: Registered Nurse Type: ED Notes Filed: 12/30/2018 11:07 PM Note Text: Pt requesting breathing treatment. [facility] ED PROV NOTEon 12-31-2018 Protein mass conc HNO ID: [id number] Author: Ricardo Duong MD Service: ? Author Type: Physician Type: ED Provider Notes Filed: 12/30/2018 11:35 PM Note Text: ED Provider Note Patient Name: Kale Sheehan SERVICE DATE: 12/30/18 History Patient presents with: Shortness of Breath: increasing over the last several days Patient complains of short of breath and wheezing for three weeks, worse tonight. He used his rescue inhaler twice today with no improvement. He has had a non-productive cough. He quit smoking about two weeks ago. He had been smoking a pack a day until two weeks ago. He denies chest pain. PAST MEDICAL HISTORY Diagnosis Date - COPD (chronic obstructive pulmonary disease) (HCC) - Enlarged prostate PAST SURGICAL HISTORY Procedure Laterality Date - ORTHOPEDICS SURGERY HX No family history on file. Social History Tobacco Use - Smoking status: Former Smoker Packs/day: 1.00 - Smokeless tobacco: Never Used Substance and Sexual Activity - Alcohol use: No - Drug use: No - Sexual activity: Not on file ALLERGIES No Known Allergies Review of Systems Constitutional: Negative. HENT: Negative. Eyes: Negative. Respiratory: Positive for shortness of breath and wheezing. Cardiovascular: Negative. Gastrointestinal: Negative. Endocrine: Negative. Genitourinary: Negative. Musculoskeletal: Negative. Skin: Negative. Allergic/Immunologic: Negative. Neurological: Negative. Hematological: Negative. Psychiatric/Behaviora l: Negative. Physical Exam BP 150/89 Pulse 94 Temp (Src) 97.9 (Oral) Resp 24 Wt 190 lb 11.2 oz (86.5kg) SpO2 94% O2 Therapy: Room Air Physical Exam Constitutional: He is oriented to person, place, and time. He appears well-developed and well-nourished. HENT: Head: Normocephalic. Mouth/Throat: Oropharynx is clear and moist. Eyes: Pupils are equal, round, and reactive to light. EOM are normal. Neck: Normal range of motion. Neck supple. Cardiovascular: Normal rate, regular rhythm and normal heart sounds. Pulmonary/Chest: Effort normal. He has wheezes. Abdominal: Soft. He exhibits no distension. There is no tenderness. There is no rebound and no guarding. Musculoskeletal: Normal range of motion. Neurological: He is alert and oriented to person, place, and time. Skin: Skin is warm and dry. Capillary refill takes less than 2 seconds. Psychiatric: He has a normal mood and affect. His behavior is normal. Judgment and thought content normal. Nursing note and vitals reviewed. Diagnostic Testing ED Labs Ordered and Reviewed - No data to display Procedures ED Course / Clinical Impression Clinical Impressions as of Dec 30 2322 Acute exacerbation of COPD with asthma (HCC) MDM / Disposition / Plan ..Course: Vital signs were reviewed. Triage records were reviewed. Medical records were reviewed. Nursing notes were reviewed and incorporated. The following medications were administered: Duoneb aerosols, solumedrol Patient was place on oxygen. Patient placed on monitor ECG reviewed and interpreted as NSR, LAD Labs reviewed and interpreted as .. Labs Reviewed COMP METABOLIC PANEL - Abnormal; Notable for the following components: Result Value Anion Gap 6 (*) All other components within normal limits CK CREATINE KINASE - Abnormal; Notable for the following components: CK 405 (*) All other components within normal limits TROPONIN T NT PRO BNP CBC Radiographs were reviewed CXR shows NAD The case was discussed with the admitting physician. Medical Decision Making: Patient presents with bronchospasm, some hypoxia, acute exacerbation of COPD; will start IV steroids, Duoneb aerosols, assign to observation medicine as he still has not cleared wheezing. The attending who evaluated and managed this patient was Ricardo Duong . Plan: The patient was assigned to observation medicine Ricardo Duong MD [facility] SIGNATURE: MD Ricardo Merino MD 12/30/18 7001 Normal [facility] HISTORY PHYSICALon 9 HISTORY PHYSICAL HNO ID: [id number] Author: Mae Cueva Service: Hospital Medicine Author Type: Physician Type: HANDP Filed: 12/31/2018 12:44 AM Note Text: SERVICE DATE: 12/31/2018 SERVICE TIME: 12:43 AM HOSPITAL MEDICINE HISTORY AND PHYSICAL PCP: Cliff Pastor MD NIGHT AND WEEKEND COVERAGE: Nights: Please contact pager [phone]. SUBJECTIVE Chief Complaint: Shortness of breath for 2 weeks, abdominal distention for couple of weeks HPI: Patient is a 63-year-old male with a history of COPD, cigarette smoking and enlarged prostate. Admitted today because of worsening shortness of breath on exertion and occasionally at rest, wheezing and cough productive of clear phlegm. Associated with postnasal drainage and occasional frontal sinus pressure but no nasal congestion nor rhinorrhea. He has been using his rescue inhaler twice daily unlike before and he quit smoking 1-2 weeks ago without any improvement in his respiratory symptoms. He denies orthopnea but has occasional episodes of paroxysmal nocturnal dyspnea. Noted a gradual weight gain since last year. He has abdominal distention with right upper quadrant discomfort. He had right upper quadrant ultrasound done by his primary care physician which was negative. He accompanied a friend to the emergency room but could not leave ER and had to be admitted due to significant dyspnea on exertion He denies fever, chills, nausea, vomiting, diarrhea, precordial chest pain. No urinary symptoms. No recent admissions for COPD exacerbation NO Known hx of CHF nor CAD In the emergency room, blood pressure was 150/89 pulse 94 respiratory rate 24 temperature 97.9, SPO2 94% on room air. Labs unremarkable with no leukocytosis and NT proBNP 61. Chest x-ray showed emphysema , Troponin and EKG negative. He was treated with breathing treatments and Solu-Medrol for COPD exacerbation with mild improvement in symptoms. PAST MEDICAL HISTORY Diagnosis Date - COPD (chronic obstructive pulmonary disease) (HCC) - Enlarged prostate PAST SURGICAL HISTORY Procedure Laterality Date - ORTHOPEDICS SURGERY HX No family history on file. Social History Tobacco Use - Smoking status: Former Smoker Packs/day: 1.00 - Smokeless tobacco: Never Used Substance Use Topics - Alcohol use: No - Drug use: No Medications: Reviewed Allergies: ALLERGIES No Known Allergies Review of Systems: See history of present illness OBJECTIVE: PHYSICAL EXAM BP 128/86 Pulse 85 Temp (Src) 97.9 (Oral) Resp 20 Wt 190 lb 11.2 oz (86.5kg) SpO2 96% O2 Therapy: Room Air Physical Exam Performed: GENERAL: Alert, no significant respiratory distress, cooperative LUNGS: bilateral expiratory wheezing all over both lung marquez.no crackles nor rhonchi CARDIAC: Normal S1 and S2; no rubs, murmurs, or gallops ABDOMEN: Abdomen soft, full/?distended as per patient, periumblical and epigastric tenderness- mostly in the epigastric region,no rebound nor guarding. Bowel sounds present. EXTREMITIES: no edema NEURO: awake, alert, oriented ?3. Can move all extremities. No obvious focal neurologic deficit noted. Lines, Drains, and Airways Line Peripheral 12/30/18 2335 Short Right Antecubital 20 Gauge less than 1 day Reviewed lines, drains, AND airways. Need to be continued . Diagnostic tests reviewed: Most recent labs and imaging results CARE COORDINATION: No Patient Care Coordination Note on file. ASSESSMENT AND PLAN Assessment AND Plan, all Hosp Problems Active Hospital Problems as of 12/31/2018 Noted - Resolved Hospital COPD with acute exacerbation (HCC) 12/31/2018 - Present Current Assessment AND Plan Assessment: Chest x-ray shows pulmonary emphysema otherwise no acute process. Labs unremarkable Patient HDS PLAN: IV Solu-Medrol 40 mg every 12hrs. increased to 60 every 8 if no improvement with current regimen IV fluid Azithromycin Check MRSA nasal swab, strep pneumo, Legionella, Mycoplasma and sputum culture. Consider pulmonology consult if no improvement.. Patient would like assistance in establishment of care with a classroom teacher either in this admission or as an outpatient Current non-smoker 12/31/2018 - Present Current Assessment AND Plan Assessment: He recently quit smoking with nicotine patch PLAN: Resume nicotine patch Abdominal pain 12/31/2018 - Present Current Assessment AND Plan Assessment: Patient complaints of right upper quadrant abdominal pain, epigastric tenderness and abdominal distention. No other associated GI symptoms LFT normal Right upper quadrant ultrasound done as outpatient was negative History of chronic daily NSAID use PLAN: Start PPI Check CT A/P Check lipase Rhinitis 12/31/2018 - Present Current Assessment AND Plan Assessment: He takes Zyrtec D and Flonase which is not available in our formulary. PLAN: Recommend that patient resume Flonase from home. Start singular for rhinitis Medication and Non-Pharmacologic VTE Prophylaxis/Anticoagu lants VTE Prophylaxis: VTE prophylaxis appropriate SIGNATURE: Mae Cueva MD PATIENT NAME: Kale Sheehan DATE: December 31, 2018 TIME: 12:43 AM PAGER/CONTACT #: [phone] Normal [facility] Legionella Urine Agon 2018 Legionella Urine Ag Negative Normal Negative [facility] Comment on above: Performed By: #### C BC, CK, CMP #### [facility] [address] [address] Lipaseon 12-31-2018 Lipase enzyme act/vol 19 U/L Normal 16-61 [facility] Comment on above: Performed By: #### C BC, CK, CMP #### [facility] [address] [address] Mycoplasma IgM ABon 01-01-20 19 M. pneumo IgM, Qual Negative Normal Negative [facility] Comment on above: Result Comment: No s ignificant amount of IgM antibodies to M. pneumoniae detected. A nonreactive result indicates no current/previous infection. Performed By: #### C BC, CK, CMP #### [facility] [address] [place] [address] Mycoplasma IgM AB 0.52 OD Ratio Normal [facility] Comment on above: Result Comment: Inde x Values/OD Ratios are interpreted as follows: Negative: < or = 0.90 Equivocal: 0.91 to 1.09 Positive: > or = 1.10 The magnitude of the measured result above the cutoff is not indicative of the total amount of antibody present and cannot be correlated to IFA titers. Performed By: #### C BC, CK, CMP #### [facility] [address] [address] NT Pro BNPon 12-31-2018 Protein mass conc 61 pg/mL Normal <125 [facility] Comment on above: Performed By: #### N TBNP #### [facility] [address] [place] [address] NURSING PROGon 12-31-2018 Protein mass conc HNO ID: [id number] Author: Sirisha TruongRn) JANELLE Ryan Service: Nursing Author Type: Registered Nurse Type: Nursing Progress Note Filed: 12/31/2018 3:10 PM Note Text: Nursing Progress Note Patient Name: Kale Sheehan Patient Location: [place]/NM Daily Note: Pt AANDO x 3, calm and cooperative. IV NS at 75 ml/hr infusing into #20 rt AC without difficulty. Lungs diminished, resp even and nonlabored on room air. Abd soft, nontender, BS + x 4. No edema, pedal pulses noted. Pt took scheduled meds and is npo for CT of Abd/Pelvis. 0930 Dr Mckeon rounding. Nurse to notify phys with CT results. 1000 Pt drank 1000 ml contrast. 1100 Pt taken off floor for CT Abd/pelvis. 1125 Pt ret'd to floor. 1230 CT called and asked if scan will be read today. 1400 Dr Mckeon notified that CT results are completed. Phys called floor and stated CT was negative - nothing bad in results. Pt to be discharged home. Pt given Referral line pamphlet to arrange for PCP by Case Management. 1430 IV cath removed, tip intact, gauze applied and secured. Discharge instructions and med list reviewed with pt. 1500 Nurse took pt out via w/c. Pt AANDO x 3, calm and cooperative. accompanied pt and to transport him home. This note was completed by: Sirisha Ryan RN [facility] Protein mass conc HNO ID: [id number] Author: Ita (Rn) JANELLE Yang Service: Nursing Author Type: Registered Nurse Type: Nursing Progress Note Filed: 12/31/2018 5:13 AM Note Text: Nursing Progress Note Patient Name: Kale Sheehan Patient Location: NM/NM 0000- admission/assessment complete and documented. Pt a/o x 3 spheres, VSS, denies c/o pain or discomfort at this time. Lungs diminished with expiratory wheezing throughout, pt states " a little " SOB at rest, o2 sats 95% R/A. Also c/o abdominal tenderness with light palpation, denies nausea or vomiting, states physician aware. Rtn safety/fall risk measures maintained, instructed to call for assist. 0200- assessment unchanged. Resting quietly without c/o cough/SOB. Rtn safety/fall risk measures maintained. 0400- assessment unchanged. Pt resting quietly with eyes closed, respirations even/unlabored, no noted resp distress. Rtn safety/fall risk measures maintained. This note was completed by: Ita Yang RN [facility] Staph aureus PCRon 9 MRSA PCR Negative [facility] Comment on above: Performed By: #### C BC, CK, CMP #### [facility] [address] [address] S aureus Spec Source Nasal Normal [facility] Comment on above: Performed By: #### C BC, CK, CMP #### [facility] [address] [address] Staph aureus PCR Negative [facility] Comment on above: Performed By: #### C BC, CK, CMP #### [facility] [address] [place] [address] Troponin Ton 12-31-2018 Troponin T.cardiac mass conc ug/L Normal 0.000-0.029 [facility] Comment on above: Performed By: #### T NT #### [facility] [address] [address] Urine Strep Pneumo FOR WEST USE ONLYon 12-31-2018 Urine Strep Pneumo FOR WEST USE ONLY Negative Normal Negative [facility] Comment on above: Result Comment: Stre p Pneumo vaccine may cause a false positive Strep Pneumo antigen result in the 48 hours following vaccine. Performed By: #### C BC, CK, CMP #### [facility] [address] XR CHEST 2V FRONTAL/LATon XR CHEST 2V FRONTAL/LAT * * *Final Repor t* * * DATE OF EXAM: Dec 30 2018 10:39PM MDX [id number] - XR CHEST 2V FRONTAL/LAT / PROCEDURE REASON: Chest pain or SOB, pleurisy or effusion suspected * * * * Physician Interpretation * * * * EXAMINATION: CHEST RADIOGRAPH (2 VIEW FRONTAL and LATERAL) CLINICAL HISTORY: Chest pain or SOB, pleurisy or effusion suspected MQ: XC2_5 Comparison: Chest x-ray report dated 03/11/2018 RESULT: Lines, tubes, and devices: None. Lungs and pleura: There is mild bilateral perihilar peribronchial thickening and hyperinflation of the lungs with flattening of the hemidiaphragms. No consolidation. No lung mass. No pleural effusion. Cardiomediastinal silhouette: Normal cardiomediastinal silhouette. Other: There is moderate degenerative change of the mid and lower thoracic spine. IMPRESSION: PULMONARY EMPHYSEMA. NO ACUTE RADIOGRAPHIC ABNORMALITY. Senior Supply Chain Analyst: LUIS Transcribe Date/Time: Dec 30 2018 10:42P Dictated by : GARCÍA DANIELLE MD This examination was interpreted and the report reviewed and electronically signed by: GARCÍA DANIELLE MD on Dec 30 2018 10:43PM EST [id number] Normal [facility] Basic Panelon 03-12-2018 Anion gap 5 mmol/L Low 8-20 [facility] Comment on above: Performed By: #### L CBCD ####[address] [address] BUN (urea nitrogen) 17 mg/dL Normal 7-25 [facility] Comment on above: Performed By: #### L CBCD ####[facility] [place], [place] [address] BUN/Creatinine Ratio 16 mg/mg Normal 10-20 [facility] Comment on above: Performed By: #### L CBCD ####[address] [address] Calcium 9.0 mg/dL Normal 8.5-10.1 [facility] Comment on above: Performed By: #### L CBCD ####[facility] [place], [place] [address] Chloride 108 mmol/L High 98-107 [facility] Comment on above: Performed By: #### L CBCD ####[facility] [address] [place] [address] CO2 27 mmol/L Normal 21-32 [facility] Comment on above: Performed By: #### L CBCD ####[facility] [address] [address] Creatinine 1.07 mg/dL Normal 0.67-1.17 [facility] Comment on above: Performed By: #### L CBCD ####[facility] [address] [place] [address] Glucose mass conc 111 mg/dL High 70-99 [facility] Comment on above: Performed By: #### L CBCD ####[address] [place] [address] Potassium molar conc 3.8 mmol/L Normal 3.5-5.1 [facility] Comment on above: Performed By: #### L CBCD ####[address] [place] [address] Sodium 136 mmol/L Normal 136-145 [facility] Comment on above: Performed By: #### L CBCD ####[place] [address] CHEST 1 VIEWon 03-12-2018 CHEST 1 VIEW Performed at [facility] APPROVED BY: VALENTIN HAYWOOD MD EXAM: Single view chest radiograph HISTORY: Shortness of breath COMPARISON: 02/08/2018 FINDINGS: A single AP upright view of the chest is submitted for evaluation. The bones and cardiomediastinal contours are within normal limits. No evidence of confluent infiltrate or large pleural effusion. There is no evidence of pneumothorax. Lungs are hyper aerated with flattening in hemidiaphragms consistent with COPD. IMPRESSION: 1. COPD.2. No active cardiopulmonary disease. Normal [facility] Hemogram/Diffon 03-12-2018 Abs. Baso 0.02 thou/cmm Normal 0.00-0.08 [facility] Comment on above: Performed By: #### L CBCD ####[address] [place] [address] Abs. [place] 1.05 thou/cmm High 0.20-1.00 [facility] Comment on above: Performed By: #### L CBCD ####[facility] [place], [place] [address] Abs. Neut (ANC) 4.48 thou/cmm Normal 3.00-5.67 [facility] Comment on above: Performed By: #### L CBCD ####[address] [address] Basophils/100 WBC Auto (Bld) 0.3 % Normal [facility] Comment on above: Performed By: #### L CBCD ####[address] [address] Eosinophils 0.36 thou/cmm Normal 0.00-0.41 [facility] Comment on above: Performed By: #### L CBCD ####[address] [address] Eosinophils/100 leukocytes 4.9 % Normal [facility] Comment on above: Performed By: #### L CBCD ####[place] [address] Erythrocyte distribution width Auto Ratio (RBC) 12.3 % Normal 11.5-15.9 [facility] Comment on above: Performed By: #### L CBCD ####[address] [address] Erythrocytes (RBC) 4.40 mil/cmm Low 4.60-6.20 [facility] Comment on above: Performed By: #### L CBCD ####[place] [address] Hematocrit (HCT) 41.6 % Low 42.0-52.0 [facility] Comment on above: Performed By: #### L CBCD ####[address] [address] Hemoglobin mass conc (Bld) 14.1 g/dL Normal 14.0-18.0 [facility] Comment on above: Performed By: #### L CBCD ####[place] [address] Lymphocytes 1.49 thou/cmm Low 1.50-3.65 [facility] Comment on above: Performed By: #### L CBCD ####[address] [address] Lymphocytes/100 leukocytes 20.2 % Normal [facility] Comment on above: Performed By: #### L CBCD ####[address] [address] MCH 32.0 pg High 27.0-31.0 [facility] Comment on above: Performed By: #### L CBCD ####[address] [address] MCHC mass conc (RBC) 33.9 % Normal 32.0-36.0 [facility] Comment on above: Performed By: #### L CBCD ####[address] [address] MCV 94.5 fL High 80.0-94.0 [facility] Comment on above: Performed By: #### L CBCD ####[address] [address] Monocytes/100 leukocytes 14.2 % Normal [facility] Comment on above: Performed By: #### L CBCD ####[address] [address] Platelet mean volume (PMV) 10.9 fL High 7.1-10.5 [facility] Comment on above: Performed By: #### L CBCD ####[address] [address] Platelets 184 thou/cmm Normal 150-400 [facility] Comment on above: Performed By: #### L CBCD ####[address] [address] Seg Neutrophil 60.4 % Normal [facility] Comment on above: Performed By: #### L CBCD ####[address] [address] WBC (Leukocytes) 7.4 thou/cmm Normal 4.8-10.8 [facility] Comment on above: Performed By: #### L CBCD ####[address] [place] [address], [place] [address] MDRD eGFRon 03-12-2018 eGFR (non-black) mL/min/{1.73_m2} Normal >60mL/m in/1.7 3m2 [facility] Comment on above: Result Comment: If t he patient is , multiply the result by 1.210. Performed By: #### L CBCD ####[place] [address] Troponin Ion 03-12-2018 Troponin I.cardiac mass conc ng/mL Normal <=0.07 [facility] Comment on above: Performed By: #### L CBCD ####[place] [address] Basic Panelon 02-08-2018 Anion gap 10 mmol/L Normal 8-20 [facility] Comment on above: Performed By: #### L P8 ####[place] [address] BUN (urea nitrogen) 15 mg/dL Normal 7-25 [facility] Comment on above: Performed By: #### L P8 ####[place] [address] BUN/Creatinine Ratio 16 mg/mg Normal 10-20 [facility] Comment on above: Performed By: #### L P8 ####[place] [address] Calcium 9.2 mg/dL Normal 8.5-10.1 [facility] Comment on above: Performed By: #### L P8 ####[place] [address] Chloride 104 mmol/L Normal 98-107 [facility] Comment on above: Performed By: #### L P8 ####[place] [address] CO2 24 mmol/L Normal 21-32 [facility] Comment on above: Performed By: #### L P8 ####[place] [address] Creatinine 0.97 mg/dL Normal 0.67-1.17 [facility] Comment on above: Performed By: #### L P8 ####[facility] [place] [address] Glucose mass conc 117 mg/dL High 70-99 [facility] Comment on above: Performed By: #### L P8 ####[facility] [place] [address] Potassium molar conc 4.3 mmol/L Normal 3.5-5.1 [facility] Comment on above: Performed By: #### L P8 ####[facility] [place] [address] Sodium 133 mmol/L Low 136-145 [facility] Comment on above: Performed By: #### L P8 ####[place] [address] CHEST 2 VIEWSon 02-08-2018 CHEST 2 VIEWS Performed at [facility] APPROVED BY: Cornelius Carter MD EXAMINATION: CHEST RADIOGRAPH (2 VIEW FRONTAL & LATERAL) Clinical History: Cough, new onset MQ: XC2_5Comparison: 09/28/2017 RESULT: Lines, tubes, and devices: None. Lungs and pleura: No consolidation. No lung mass. No pleural effusion. Advanced degree of COPD changes Cardiomediastinal silhouette: Normal cardiomediastinal silhouette. Other: . IMPRESSION: No acute radiographic abnormality. Advanced degree of COPD changes Normal [facility] Cult and Smr Respiratoryon 0 02-08-2018 Cult and Smr Respiratory Test performed at [facility] Normal oropharyngeal ramirez present. Few WBC Few Mixed ramirez <25 epithelial cells per low power field Normal [facility] Comment on above: Performed By: #### L CBCD ####[place] [address] Hemogram/Diffon 02-08-2018 Abs. Baso 0.02 thou/cmm Normal 0.00-0.08 [facility] Comment on above: Performed By: #### L CBCD ####[place] [address] Abs. [place] 0.70 thou/cmm Normal 0.20-1.00 [facility] Comment on above: Performed By: #### L CBCD ####[address] [address] Abs. Neut 3.94 thou/cmm Normal 3.00-5.67 [facility] Comment on above: Performed By: #### L CBCD ####[address] [address] Basophils/100 WBC Auto (Bld) 0.3 % Normal [facility] Comment on above: Performed By: #### L CBCD ####[address] [address] Eosinophils 0.54 thou/cmm High 0.00-0.41 [facility] Comment on above: Performed By: #### L CBCD ####[address] [address] Eosinophils/100 leukocytes 8.6 % Normal [facility] Comment on above: Performed By: #### L CBCD ####[place] [address] Erythrocyte distribution width Auto Ratio (RBC) 11.9 % Normal 11.5-15.9 [facility] Comment on above: Performed By: #### L CBCD ####[address] [address] Erythrocytes (RBC) 4.76 mil/cmm Normal 4.60-6.20 [facility] Comment on above: Performed By: #### L CBCD ####[address] [address] Hematocrit (HCT) 44.7 % Normal 42.0-52.0 [facility] Comment on above: Performed By: #### L CBCD ####[address] [address] Hemoglobin mass conc (Bld) 15.1 g/dL Normal 14.0-18.0 [facility] Comment on above: Performed By: #### L CBCD ####[address] [address] Lymphocytes 1.10 thou/cmm Low 1.50-3.65 [facility] Comment on above: Performed By: #### L CBCD ####[facility] [place], [place] [address] Lymphocytes/100 leukocytes 17.5 % Normal [facility] Comment on above: Performed By: #### L CBCD ####[facility] [place], [place] [address] MCH 31.7 pg High 27.0-31.0 [facility] Comment on above: Performed By: #### L CBCD ####[address] [address] MCHC mass conc (RBC) 33.8 % Normal 32.0-36.0 [facility] Comment on above: Performed By: #### L CBCD ####[address] [address] MCV 93.9 fL Normal 80.0-94.0 [facility] Comment on above: Performed By: #### L CBCD ####[address] [address] Monocytes/100 leukocytes 11.1 % Normal [facility] Comment on above: Performed By: #### L CBCD ####[address] [address] Platelet mean volume (PMV) 11.2 fL High 7.1-10.5 [facility] Comment on above: Performed By: #### L CBCD ####[address] [address] Platelets 186 thou/cmm Normal 150-400 [facility] Comment on above: Performed By: #### L CBCD ####[address] [address] Seg Neutrophil 62.5 % Normal [facility] Comment on above: Performed By: #### L CBCD ####[address] [address] WBC (Leukocytes) 6.3 thou/cmm Normal 4.8-10.8 [facility] Comment on above: Performed By: #### L CBCD ####[address] [address] MDRD eGFRon 02-08-2018 eGFR (non-black) mL/min/{1.73_m2} Normal >60mL/m in/1.7 3m2 [facility] Comment on above: Result Comment: If t he patient is , multiply the result by 1.210. Performed By: #### L CBCD ####[facility] [place], [place] [address] Troponin Ion 02-08-2018 Troponin I.cardiac mass conc ng/mL Normal <=0.07 [facility] Comment on above: Performed By: #### L TRP ####[address] [address] CHEST 1 VIEWon 09-28-2017 CHEST 1 VIEW Performed at [facility] APPROVED BY: Edis Weaver MD EXAMINATION: CHEST RADIOGRAPH (SINGLE VIEW AP OR PA) Clinical History: Cough.M: XC1_3Comparison: None. RESULT: Lines, tubes, and devices: None. Lungs and pleura: No acute infiltrates or effusions. Cardiomediastinal silhouette: Normal cardiomediastinal silhouette. Other: None IMPRESSION: No acute radiographic abnormality. Normal [facility] Comprehensive Panelon 2017 Albumin 4.3 g/dL Normal 3.4-5.0 [facility] Comment on above: Performed By: #### L P14 ####[address] [address] Alkaline phosphatase (ALP) 81 U/L Normal 46-116 [facility] Comment on above: Performed By: #### L P14 ####[address] [address] ALT-SGPT Blood 37 U/L Normal 12-78 [facility] Comment on above: Performed By: #### L P14 ####[address] [address] Anion gap 9 mmol/L Normal 8-20 [facility] Comment on above: Performed By: #### L P14 ####[address] [address] AST-SGOT Blood 27 U/L Normal 15-37 [facility] Comment on above: Performed By: #### L P14 ####[facility] [place], [place] [address] Bilirubin Ql (U) 0.4 mg/dL Normal 0.2-1.0 [facility] Comment on above: Performed By: #### L P14 ####[address] [address] BUN (urea nitrogen) 15 mg/dL Normal 7-25 [facility] Comment on above: Performed By: #### L P14 ####[place] [address] BUN/Creatinine Ratio 15 mg/mg Normal 10-20 [facility] Comment on above: Performed By: #### L P14 ####[address] [address] Calcium 9.6 mg/dL Normal 8.5-10.1 [facility] Comment on above: Performed By: #### L P14 ####[place] [address] Chloride 105 mmol/L Normal 98-107 [facility] Comment on above: Performed By: #### L P14 ####[place] [address] CO2 27 mmol/L Normal 21-32 [facility] Comment on above: Performed By: #### L P14 ####[address] [address] Creatinine 1.02 mg/dL Normal 0.67-1.17 [facility] Comment on above: Performed By: #### L P14 ####[address] [address] Glucose mass conc 91 mg/dL Normal 70-99 [facility] Comment on above: Performed By: #### L P14 ####[place] [address] Potassium molar conc 4.2 mmol/L Normal 3.5-5.1 [facility] Comment on above: Performed By: #### L P14 ####[place] [address] Protein 7.5 g/dL Normal 6.4-8.2 [facility] Comment on above: Performed By: #### L P14 ####[address] [address] Sodium 137 mmol/L Normal 136-145 [facility] Comment on above: Performed By: #### L P14 ####[address] [address] Hemogram/Diffon 09-28-2017 Abs. Baso 0.04 thou/cmm Normal 0.00-0.08 [facility] Comment on above: Performed By: #### L CBCD ####[address] [address] Abs. [place] 1.16 thou/cmm High 0.20-1.00 [facility] Comment on above: Performed By: #### L CBCD ####[place] [address] Abs. Neut 5.44 thou/cmm Normal 3.00-5.67 [facility] Comment on above: Performed By: #### L CBCD ####[address] [address] Basophils/100 WBC Auto (Bld) 0.4 % Normal [facility] Comment on above: Performed By: #### L CBCD ####[address] [address] Eosinophils 0.56 thou/cmm High 0.00-0.41 [facility] Comment on above: Performed By: #### L CBCD ####[address] [address] Eosinophils/100 leukocytes 6.2 % Normal [facility] Comment on above: Performed By: #### L CBCD ####[address] [address] Erythrocyte distribution width Auto Ratio (RBC) 12.3 % Normal 11.5-15.9 [facility] Comment on above: Performed By: #### L CBCD ####[address] [address] Erythrocytes (RBC) 4.32 mil/cmm Low 4.60-6.20 [facility] Comment on above: Performed By: #### L CBCD ####[place] [address] Hematocrit (HCT) 41.0 % Low 42.0-52.0 [facility] Comment on above: Performed By: #### L CBCD ####[place] [address] Hemoglobin mass conc (Bld) 14.1 g/dL Normal 14.0-18.0 [facility] Comment on above: Performed By: #### L CBCD ####[place] [address] Lymphocytes 1.80 thou/cmm Normal 1.50-3.65 [facility] Comment on above: Performed By: #### L CBCD ####[place] [address] Lymphocytes/100 leukocytes 20.0 % Normal [facility] Comment on above: Performed By: #### L CBCD ####[place] [address] MCH 32.6 pg High 27.0-31.0 [facility] Comment on above: Performed By: #### L CBCD ####[place] [address] MCHC mass conc (RBC) 34.4 % Normal 32.0-36.0 [facility] Comment on above: Performed By: #### L CBCD ####[place] [address] MCV 94.9 fL High 80.0-94.0 [facility] Comment on above: Performed By: #### L CBCD ####[place] [address] Monocytes/100 leukocytes 12.9 % Normal [facility] Comment on above: Performed By: #### L CBCD ####[place] [address] Platelet mean volume (PMV) 11.1 fL High 7.1-10.5 [facility] Comment on above: Performed By: #### L CBCD ####[facility] [place], [place] [address] Platelets 176 thou/cmm Normal 150-400 [facility] Comment on above: Performed By: #### L CBCD ####[address] [address] Seg Neutrophil 60.5 % Normal [facility] Comment on above: Performed By: #### L CBCD ####[address] [address] WBC (Leukocytes) 9.0 thou/cmm Normal 4.8-10.8 [facility] Comment on above: Performed By: #### L CBCD ####[address] [address] MDRD eGFRon 09-28-2017 eGFR (non-black) mL/min/{1.73_m2} Normal >60mL/m in/1.7 3m2 [facility] Comment on above: Result Comment: If t he patient is , multiply the result by 1.210. Performed By: #### L GFR ####[address] [address] Magnesium Bloodon 09-28-2017 Magnesium 2.0 mg/dL Normal 1.8-2.4 [facility] Comment on above: Performed By: #### L MAG ####[address] [address] N-terminal Pro-BNPon 018 BNP 55.1 pg/mL Normal [facility] Comment on above: Result Comment: Acut e CHF Rule-in <50 yrs old >= 450 pg/ml >50 yrs old >= 900 pg/ml Abnormal Pro-BNP All patients >=300 pg/ml Performed By: #### L PBNP ####[address] [address] Troponin Ion 09-28-2017 Troponin I.cardiac mass conc ng/mL Normal <=0.07 [facility] Comment on above: Performed By: #### L TRP ####[address] [address] Vital Signs Date Time Vital Sign Value Performing Clinician Faci lity 05-01-2025 08:43-0400 Body mass index (BMI) [Ratio] 31.1 kg/m2 Dr. Alexsander Casanova MD Work Phone: [facility] 05-01-2025 08:43-0400 Body temperature 97.4 [degF] Dr. Alexsander Casanova MD Work Phone: 0(649)[phone] [address] 05-01-2025 08:43-0400 Body weight 90.[address] Alexsander Casanova MD Work Phone: 0(093)492-686157 [place] [address] 05-01-2025 08:43-0400 Diastolic blood pressure 85 mm[Hg] Dr. Alexsander Casanova MD Work Phone: 8(354)511-553405 [address] 05-01-2025 08:43-0400 Heart rate 84 /min Dr. Alexsander Casanova MD Work Phone: 6(324)301-881005 [address] 05-01-2025 08:43-0400 Respiratory rate 16 /min Dr. Alexsander Casanova MD Work Phone: 6(110)563-768005 [address] 05-01-2025 08:43-0400 SaO2% (BldA) [Mass fraction] 98 % Dr. Alexsander Casanova MD Work Phone: 2(103)626-095105 [address] 05-01-2025 08:43-0400 Systolic blood pressure 124 mm[Hg] Dr. Alexsander Casanova MD Work Phone: 3(200)612-811468 [place] [address] 01-02-2025 07:56-0400 Body height 170.[address] Alexsander Casanova MD Work Phone: 6(032)[phone] [address] 01-02-2025 07:56-0400 Body mass index (BMI) [Ratio] 32.2 kg/m2 Dr. Alexsander Casanova MD Work Phone: 7(986)[phone] [address] 01-02-2025 07:56-0400 Body temperature 97.4 [degF] Dr. Alexsander Casanova MD Work Phone: 6(860)282-946168 [place] [address] 01-02-2025 07:56-0400 Body weight 93.[address] Alexsander Casanova MD Work Phone: [facility] 01-02-2025 07:56-0400 Diastolic blood pressure 87 mm[Hg] Dr. Alexsander Casanova MD Work Phone: [facility] 01-02-2025 07:56-0400 Heart rate 84 /min Dr. Alexsander Casanova MD Work Phone: [facility] 01-02-2025 07:56-0400 Respiratory rate 18 /min Dr. Alexsander Casanova MD Work Phone: [facility] 01-02-2025 07:56-0400 SaO2% (BldA) [Mass fraction] 97 % Dr. Alexsander Casanova MD Work Phone: [facility] 01-02-2025 07:56-0400 Systolic blood pressure 134 mm[Hg] Dr. Alexsander Casanova MD Work Phone: [facility] 09-07-2023 05:53-0500 Body height 170.[address] Alexsander Casanova Work Phone: [facility] 09-07-2023 05:53-0500 Body mass index (BMI) [Ratio] 30.5 kg/m2 Dr. Alexsander Casanova Work Phone: [facility] 09-07-2023 05:53-0500 Body temperature 95.1 [degF] Dr. Alexsander Casanova Work Phone: [facility] 09-07-2023 05:53-0500 Body weight 88.[address] Alexsander Casanova Work Phone: [facility] 09-07-2023 05:53-0500 Diastolic blood pressure 86 mm[Hg] Dr. Alexsander Casanova Work Phone: [facility] 09-07-2023 05:53-0500 Heart rate 79 /min Dr. Alexsander Casanova Work Phone: [facility] 09-07-2023 05:53-0500 Respiratory rate 20 /min Dr. Alexsander Casanova Work Phone: [facility] 09-07-2023 05:53-0500 SaO2% (BldA) [Mass fraction] 99 % Dr. Alexsander Casanova Work Phone: [facility] 09-07-2023 05:53-0500 Systolic blood pressure 126 mm[Hg] Dr. Alexsander Casanova Work Phone: [facility] 08-12-2022 12:47-0500 Body height 170.[address] Alexsander Casanova Work Phone: 0(324)004-227668 [place] [address] 08-12-2022 12:47-0500 Body mass index (BMI) [Ratio] 30.2 kg/m2 Dr. Alexsander Casanova Work Phone: 6(010)270-557068 [place] [address] 08-12-2022 12:47-0500 Body weight 87.[address] Alexsander Casanova Work Phone: [facility] 08-12-2022 12:47-0500 Body temperature 98.2 [degF] Dr. Alexsander Casanova Work Phone: [facility] 08-12-2022 12:47-0500 Diastolic blood pressure 85 mm[Hg] Dr. Alexsander Casanova Work Phone: [facility] 08-12-2022 12:47-0500 Heart rate 81 /min Dr. Alexsander Casanova Work Phone: [facility] 08-12-2022 12:47-0500 Respiratory rate 16 /min Dr. Alexsander Casanova Work Phone: [facility] 08-12-2022 12:47-0500 SaO2% (BldA) [Mass fraction] 98 % Dr. Alexsander Casanova Work Phone: [facility] 08-12-2022 12:47-0500 Systolic blood pressure 128 mm[Hg] Dr. Alexsander Casanova Work Phone: [facility] 06-23-2022 10:31-0400 Body temperature 97.8 [degF] Dr. Alexsander Casanova Work Phone: [facility] Work Phone: 06-23-2022 10:31-0400 Diastolic blood pressure 82 mm[Hg] Dr. Alexsander Casanova Work Phone: [facility] Work Phone: 06-23-2022 10:31-0400 Heart rate 71 /min Dr. Alexsander Casanova Work Phone: [facility] Work Phone: 06-23-2022 10:31-0400 Respiratory rate 16 /min Dr. Alexsander Casanova Work Phone: [facility] Work Phone: 06-23-2022 10:31-0400 SaO2% (BldA) [Mass fraction] 100 % Dr. Alexsander Casanova Work Phone: [facility] Work Phone: 06-23-2022 10:31-0400 Systolic blood pressure 122 mm[Hg] Dr. Alexsander Casanova Work Phone: [facility] Work Phone: 06-23-2022 09:31-0400 Body height 170.[address] Alexsander Casanova Work Phone: [facility] Work Phone: 06-23-2022 09:31-0400 Body mass index (BMI) [Ratio] 31.1 kg/m2 Dr. Alexsander Casanova Work Phone: [facility] Work Phone: 06-23-2022 09:31-0400 Body weight [address] Alexsander Casanova Work Phone: [facility] Work Phone: 05-10-2022 11:35-0400 Body temperature 97.3 [degF] Dr. Alexsander Casanova Work Phone: [facility] Work Phone: 05-10-2022 11:35-0400 Diastolic blood pressure 75 mm[Hg] Dr. Alexsander Casanova Work Phone: [facility] Work Phone: 05-10-2022 11:35-0400 Heart rate 72 /min Dr. Alexsander Casanova Work Phone: [facility] Work Phone: 05-10-2022 11:35-0400 Respiratory rate 16 /min Dr. Alexsander Casanova Work Phone: [facility] Work Phone: 05-10-2022 11:35-0400 SaO2% (BldA) [Mass fraction] 97 % Dr. Alexsander Casanova Work Phone: [facility] Work Phone: 05-10-2022 11:35-0400 Systolic blood pressure 112 mm[Hg] Dr. Alexsander Casanova Work Phone: [facility] Work Phone: 05-10-2022 10:20-0400 Body height 170.[address] Alexsander Casanova Work Phone: [facility] Work Phone: 05-10-2022 10:20-0400 Body mass index (BMI) [Ratio] 30.7 kg/m2 Dr. Alexsander Casanova Work Phone: [facility] Work Phone: 05-10-2022 10:20-0400 Body weight [address] Alexsander Casanova Work Phone: [facility] Work Phone: 03-31-2022 15:08-0400 Body mass index (BMI) [Ratio] 30.4 kg/m2 Dr. Alexsander Casanova Work Phone: [facility] Work Phone: 03-31-2022 15:08-0400 Body temperature 97.5 [degF] Dr. Alexsander Casanova Work Phone: [facility] Work Phone: 03-31-2022 15:08-0400 Body weight 87.[address] Alexsander Casanova Work Phone: [facility] Work Phone: 03-31-2022 15:08-0400 Diastolic blood pressure 67 mm[Hg] Dr. Alexsander Casanova Work Phone: [facility] Work Phone: 03-31-2022 15:08-0400 Heart rate 80 /min Dr. Alexsander Casanova Work Phone: [facility] Work Phone: 03-31-2022 15:08-0400 Respiratory rate 16 /min Dr. Alexsander Casanova Work Phone: [facility] Work Phone: 03-31-2022 15:08-0400 SaO2% (BldA) [Mass fraction] 98 % Dr. Alexsander Casanova Work Phone: [facility] Work Phone: 03-31-2022 15:08-0400 Systolic blood pressure 99 mm[Hg] Dr. Alexsander Casanova Work Phone: [facility] Work Phone: 01-27-2022 12:36-0400 Body height 170.[address] Marcelo Morgan Work Phone: [facility] Work Phone: 01-27-2022 12:36-0400 Body mass index (BMI) [Ratio] 29.7 kg/m2 Dr. Marcelo Morgan Work Phone: [facility] Work Phone: 01-27-2022 12:36-0400 Body temperature 98.9 [degF] Dr. Marcelo Morgan Work Phone: [facility] Work Phone: 01-27-2022 12:36-0400 Body weight 86.[address] Marcelo Morgan Work Phone: [facility] Work Phone: 01-27-2022 12:36-0400 Diastolic blood pressure 86 mm[Hg] Dr. Marcelo Morgan Work Phone: [facility] Work Phone: 01-27-2022 12:36-0400 Heart rate 90 /min Dr. Marcelo Morgan Work Phone: [facility] Work Phone: 01-27-2022 12:36-0400 Respiratory rate 19 /min Dr. Marcelo Morgan Work Phone: [facility] Work Phone: 01-27-2022 12:36-0400 SaO2% (BldA) [Mass fraction] 92 % Dr. Marcelo Morgan Work Phone: [facility] Work Phone: 01-27-2022 12:36-0400 Systolic blood pressure 122 mm[Hg] Dr. Marcelo Morgan Work Phone: [facility] Work Phone: 12-11-2021 14:00-0400 Body mass index (BMI) [Ratio] 30.4 kg/m2 Dr. Marcelo Morgan Work Phone: [facility] Work Phone: 12-11-2021 14:00-0400 Body temperature 98.2 [degF] Dr. Marcelo Morgan Work Phone: [facility] Work Phone: 12-11-2021 14:00-0400 Body weight 87.[address] Marcelo Morgan Work Phone: [facility] Work Phone: 12-11-2021 14:00-0400 Diastolic blood pressure 80 mm[Hg] Dr. Marcelo Morgan Work Phone: [facility] Work Phone: 12-11-2021 14:00-0400 Heart rate 75 /min Dr. Marcelo Morgan Work Phone: [facility] Work Phone: 12-11-2021 14:00-0400 Respiratory rate 19 /min Dr. Marcelo Morgan Work Phone: [facility] Work Phone: 12-11-2021 14:00-0400 SaO2% (BldA) [Mass fraction] 98 % Dr. Marcelo Morgan Work Phone: [facility] Work Phone: 12-11-2021 14:00-0400 Systolic blood pressure 116 mm[Hg] Dr. Marcelo Morgan Work Phone: [facility] Work Phone: Encounters Encounter Date Encounter Type Care Provider Facility Start: 07-17-2025 ambulatory Alexsander Casanova Facilit y:[facility] Start: 06-20-2025 ambulatory Alexsander Casanova Facilit y:[facility] Start: 06-13-2025 End: 06-13-2025 ambulatory Alexsander Casanova Facility:[facility] Start: 05-01-2025 End: 05-01-2025 Patient encounter procedure Elissa MALAVE -[facility] Work Phone: Start: 05-01-2025 End: 05-01-[address] Alexsander Casanova MD Work Phone: -[facility] Start: 04-15-2025 End: 04-15-[address] Alexsander Casanova MD Work Phone: -[facility] Start: 04-15-2025 End: 04-15-2025 Patient encounter procedure Elissa MALAVE -[facility] Work Phone: Start: 04-15-2025 End: 04-15-2025 ambulatory Elissa West NP Facility:[facility] Start: 01-02-2025 End: 01-02-2025 Patient encounter procedure Elissa West [employer] -[facility] Work Phone: Start: 01-02-2025 End: 01-02-2025 ambulatory Alexsander Casanova Facility:[facility] Start: 12-26-2024 End: 12-26-[address] Alexsander Casanova MD Work Phone: [facility] Work Phone: Start: 12-26-2024 End: 12-26-2024 Patient encounter procedure Elissa West [employer] -Cat Scan, [facility] Work Phone: Start: 12-26-2024 End: 12-26-2024 ambulatory Elissa West NP Facility:[facility] Start: 09-07-2024 End: 09-07-2024 Patient encounter procedure Dr. Alexsander Casanova MD -Ultrasound, [facility] Work Phone: Start: 09-07-2024 End: 09-07-2024 ambulatory Alexsander Casanova Facility:[facility] Start: 08-30-2024 End: 08-30-[address] Alexsander Casanova MD -Laboratory, [place] Work Phone: Start: 08-30-2024 End: 08-30-2024 ambulatory Alexsander Casanova Facility:[facility] Start: 11-29-2023 End: 11-29-[address] Alexsander Casanova Work Phone: [facility] Work Phone: Start: 11-29-2023 End: 11-29-[address] Alexsander Casanova Work Phone: [facility]-Pulmonary Services/Neurology Work Phone: Start: 10-18-2023 End: 10-18-[address] Alexsander Casanova Work Phone: [facility] Work Phone: Start: 10-18-2023 End: 10-18-[address] Alexsander Casanova Work Phone: [facility] Work Phone: Start: 09-07-2023 End: 09-07-[address] Alexsander Casanova Work Phone: [facility]-Pulmonary Medicine [facility] Work Phone: Start: 08-19-2023 End: 08-19-2023 ambulatory [facility] Work Phone: Start: 08-19-2023 End: 08-19-2023 Patient encounter procedure [facility] Work Phone: Start: 06-22-2023 End: 06-22-2023 Patient encounter procedure [facility] Start: 01-11-2023 End: 01-11-2023 ambulatory [facility] Work Phone: Start: 01-11-2023 End: 01-11-2023 Patient encounter procedure [facility] Start: 10-13-2022 End: 10-13-[address] Alexsander Casanova Work Phone: [facility] Work Phone: Start: 10-13-2022 End: 10-13-[address] Alexsander Casanova Work Phone: [facility] Start: 08-17-2022 End: 08-17-[address] Alexsander Casanova Work Phone: [facility] Work Phone: Start: 08-17-2022 End: 08-17-[address] Alexsander Casanova Work Phone: [facility] Start: 08-12-2022 End: 08-12-[address] [facility] Start: 07-14-2022 End: 07-14-[address] Alexsander Casanova Work Phone: [facility] Work Phone: Start: 07-14-2022 End: 07-14-[address] Alexsander Casanova Work Phone: [facility] Start: 06-23-2022 Non-patient / Non-visit Dr. Silvana Casanova Work Phone: [facility] Start: 06-23-2022 End: 06-23-2022 Admission to same day surgery center Dr. Alexsander Casanova Work Phone: [facility]-Endoscopy Start: 06-23-2022 End: 06-23-[address] Alexsander Casanova Work Phone: [facility] Work Phone: Start: 05-10-2022 Non-patient / Non-visit Dr. Silvana Casanova Work Phone: [facility] Start: 05-10-2022 End: 05-10-2022 Admission to same day surgery center Dr. Alexsander Casanova Work Phone: [facility]-Endoscopy Start: 03-31-2022 End: 03-31-[address] Alexsander Casanova Work Phone: [facility] Start: 03-11-2022 End: 03-11-[address] Marcelo Morgan Work Phone: [facility] Start: 01-27-2022 End: 01-27-[address] Marcelo Morgan [facility] Start: 01-11-2022 Altagracia Guy MD Work Phone: Pulmonary Medicine Comment on above: Refill Request (Spir esme ) Start: 12-11-2021 End: 12-11-[address] Marcelo Morgan Work Phone: [facility]-Pulmonary Medicine [facility] Start: 11-24-2021 Non-patient / Non-visit Dr. Dali Morgan Work Phone: [facility] Start: 11-24-2021 End: 11-24-[address] Marcelo Morgan Work Phone: [facility]-Pulmonary Services/Neurology Start: 12-31-2018 End: 12-31-2018 Patient encounter procedure [facility] Procedures Date Procedure Procedure Detail Performing Clinician Start: 12-26-[address] Alexsander jean MD Work Phone: Start: 09-07-2024 US scan of bladder Dr. Alexsander Casanova MD Work Phone: Start: 08-19-2023 CT of chest Start: 08-17-[address] Alexsander jean Work Phone: Start: 06-23-[address] Alexsander Casanova Work Phone: Start: 05-10-[address] Alexsander jean Work Phone: Plan of Treatment Date Care Activity Detail Author Start: 06-23-2022 Egd transoral biopsy single/multiple EGD BIOPSY SINGLE/MULTIPLE [facility] Work Phone: Start: 06-23-2022 Patient discharge [facility] Work Phone: Start: 05-27-2022 Influenza vaccination INFLUENZA (Season Ended) [facility] Start: 05-10-2022 Colonoscopy w/biopsy single/multiple COLONOSCOPY AND BIOPSY [facility] Work Phone: Start: 05-10-2022 Colsc flx w/rmvl of tumor polyp lesion snare tq COLONOSCOPY W/LESION REMOVAL [facility] Work Phone: Start: 05-10-2022 Egd transoral biopsy single/multiple EGD BIOPSY SINGLE/MULTIPLE [facility] Work Phone: Start: 05-10-2022 Patient discharge [facility] Work Phone: Start: 12-30-2021 DIABETES SCREEN DIABETES SCREEN [facility] Start: 2021 ADVANCE DIRECTIVE DISCUSSION ADVANCE DIRECTIVE DISCUSSION [facility] Start: 2021 PNEUMOVAX AGE 65 AND OVER WITH 5YR LOOKBACK (#1) PNEUMOVAX AGE 65 AND OVER WITH 5YR LOOKBACK (#1) [facility] Start: 2011 PROSTATE CANCER SCREENING DISCUSSION PROSTATE CANCER SCREENING DISCUSSION [facility] Start: 2006 SHINGRIX VACCINE (1 of 2) SHINGRIX VACCINE (1 of 2) [facility] Start: 2001 COLOGUARD (FIT-DNA) COLOGUARD (FIT-DNA) [facility] Start: 2001 Colonoscopy COLONOSCOPY [facility] Start: 2001 COLORECTAL CANCER SCREENING COLORECTAL CANCER SCREENING [facility] Start: [address] COLONOGRAPHY [facility] Start: 2001 FECAL OCCULT BLOOD FECAL OCCULT BLOOD [facility] Start: 2001 SIGMOIDOSCOPY SIGMOIDOSCOPY [facility] Start: 1991 LIPID SCREEN LIPID SCREEN [facility] Start: 1975 Urine microalbumin profile DTAP,TDAP,TD (1 - Tdap) [facility] Start: 1974 ANNUAL PCP TEAM CHRONIC DISEASE VISIT ANNUAL PCP TEAM CHRONIC DISEASE VISIT [facility] Start: 1974 HEPATITIS C SCREENING HEPATITIS C SCREENING [facility] Start: 1974 HIV SCREENING HIV SCREENING [facility] Start: 1968 Adult depression screening assessment DEPRESSION SCREENING [facility] Start: 1961 COVID-19 VACCINE (1) COVID-19 VACCINE (1) [facility] Start: 1956 ABDOMINAL AORTIC ANEURYSM SCREENING [facility] Colonoscopy [facility] Work Phone: CT Chest [facility] Work Phone: [facility] Exercise tolerance test [facility] Work Phone: Measurement of respiratory function [facility] Patient referral [facility] Work Phone: Immunizations Immunization Date Immunization Notes Care Provider Gloria sagastume 07-05-2018 influenza, seasonal, injectable Edis Guy MD Work Phone: [facility] Work Phone: 03-22-2016 pneumococcal conjuga te vaccine, 13 valent Edis Guy MD Work Phone: [facility] Work Phone: Payers Date Payer Category Payer Medicare [id number] 2024 Self-pay [id number] 2021 Private Health Insurance [facility] [employer] [id number] 2021-Present [phone] [address] [place] [address] PPO [id number] 2018 Medicaid [employer] [id number] 2018-Present [phone] [address] [place] [address] Medicaid [id number] Medicaid [id number] Medicare [id number] Unknown [id number] Unknown [id number] Unknown VA AUTH REQUIR ED SEE NOTE [id number] Unknown [id number] Unknown [id number] Unknown [id number] Unknown [id number] Unknown [id number] Unknown [id number] Unknown [id number] Unknown [id number] Unknown [id number] Unknown [id number] Unknown 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 [facility] Start: 1955 Sex Assigned At Not on file [facility] Start: 01-27-2022 End: 09-07-2023 Tobacco smoking status AZIS Unknown if ever smoked [facility] Start: 1955 Sex Assigned At Male W [facility] Start: 12-13-2023 Tobacco smoking stat us AZIS Ex-smoker (finding) [facility] Start: 12-27-2024 Sex Male (finding) [facility] Goals Date Patient Goal Desired Activity /State Mental Status Date Assessment Result Facility 06-23-2022 Cognitive function Voice/Name [facility] Work Phone: 05-10-2022 Cognitive function Voice/Name [facility] Work Phone: Clinical Notes 01-11-2022 to 01-02-2025 Note Date & Type Note Facility 01-02-2025 Evaluation note Diagnosis Onset Date Resolution Hypoxia acute January 02 7:48am Asthma chronic January 02 7:48am Smoking greater than 40 pack years chronic January 02, 2025 7:48am Stage 3 severe COPD by GOLD classification chronic January 02 7:48am [facility] Work Phone: 1(616) 718-125104-09-2025 Evaluation note* Diagnosis Onset Date Resolution Status Admit Date Hypoxia acute January 02 7:48am Asthma chronic January 02 7:48am Smoking greater than 40 pack years chronic January 02, 2025 7:48am Stage 3 severe COPD by GOLD classification chronic January 02, 2025 7:48am Hypoxia acute May 01 2:36pm Asthma chronic May 01 2:36pm Smoking greater than 40 pack years chronic May 01, 2025 2:36pm Stage 3 severe COPD by GOLD classification chronic May 01, 2025 2:36pm [facility] Work Phone: 1(620) 248-338304-02-2025 Radiology Diagnostic study note [facility] Imaging Services [address] [place] [address] Lung Screening MR#: [id number] Acct: [id number] Name: KALE SHEEHAN Rep #: [id number] : 1955 M 69 From: Benigno Martinez MD PCP: Dr. 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 Patient has smoked 3 packs per day for many years. TECHNIQUE: Low Dose CT Lung screening without contrast. Coronal and Sagittal reconstructionseries were provided. One or more dose reduction techniques were used (e.g., Automated exposure control, adjustment of the mA and/or kV according to patient size, use of iterative reconstruction technique). REFERENCE LINK: Dedicated Devices Lung-RADS RADIATION DOSE SUMMARY: CTDlvol: 4.02 mGy DLP: 145.47 mGycm COMPARISON: Comparison is made with prior study dated August 19, 2023. FINDINGS: PULMONARY NODULES: (Only nodules >3mm are reported) Nodules described below are on series 1 unless otherwise specified. Pulmonary Nodules: No suspicious nodules are seen. Hardware:None Lymph Nodes:Small mediastinal lymph nodes. Heart and Vasculature:Minimal anterior pericardial thickening. Coronary Artery Calcifications: Present Lungs and Airways: Advanced emphysematous changes are present. Stable scarring in the right upper lobe. Pleura:Unremarkable Upper Abdomen:Unremarkable Bones:Degenerative changes of the thoracic spine. CT/Low Dose CT Lung Screening IMPRESSION: Coronary artery calcification (CAC) is is present Lung-RADS Category: 2 BENIGN (BASED ON IMAGING FEATURES OR INDOLENT BEHAVIOR). RECOMMEND 12-MONTH SCREENING LDCT. Other Significant Findings: None. Reading Location: [place] [address] CC: ANANDA West; Dr. 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 * Telephone Encounter - Latisha Calvo - 01/11/2022 9:58 AM EDT Pharmacy faxed requesting the following refill. Pending Prescriptions Disp Refills SPIRIVA RESPIMAT 1.25 MCG/ACTUATION SOLUTION FOR INHALATION 4 g 11 Sig: Inhale 2 Puffs as instructed once daily. CHEMA: Yes Patient last appointment: 04/28/2020 No future appointment scheduled at this time. Patient Phone numbers: [phone] (home) Request is for script(s) to be escript to pharmacy. Latisha Calvo [facility]* Diagnosis Onset Date Resolution Status Oral thrush acute Smoking greater than 40 pack years acute Stage 3 severe COPD by GOLD classification chronic Stage 3 severe COPD by GOLD classification [facility] Work Phone: evaluation note* Diagnosis Onset Date Resolution Status Stage 3 severe COPD by GOLD classification chronic GERD (gastroesophageal reflux disease) acute Hx of colonic polyps acute Umbilical hernia without obs truction and without gangrene acute GERD (gastroesophageal reflux disease) acute Hx of colonic polyps acute [facility] Work Phone: Evaluation note* Diagnosis Onset Date Resolution Status GERD (gastroesophageal reflux disease) acute Hx of colonic polyps acute Umbilical hernia without obs truction and without gangrene acute GERD (gastroesophageal reflux disease) acute Hx of colonic polyps acute Abnormal findings on esophagogastroduodenoscopy (EGD) acute GERD (gastroesophageal reflux disease) acute [facility] Work Phone: Evaluation note* Diagnosis Onset Date Resolution Status GERD (gastroesophageal reflux disease) acute Hx of colonic polyps acute Abnormal findings on esophagogastroduodenoscopy (EGD) acute GERD (gastroesophageal reflux disease) acute Obesity (BMI 30.0-34.9) acut e Tobacco abuse acute Stage 3 severe COPD by GOLD classification [facility] Work Phone: Evaluation note* Diagnosis Onset Date Resolution Status Obesity (BMI 30.0-34.9) acut e Tobacco abuse acute Stage 3 severe COPD by GOLD classification [facility] Work Phone: Evaluation noteNo assessment information available [facility] Work Phone: Evaluation note* Diagnosis Onset Date Resolution Status Asthma acute Stage 3 severe COPD by GOLD classification 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 Advance Directive(s) 12/30/2018 10:33 PM Advance Directive(s) 03/11/2018 10:34 PM Advance Directive(s) 02/08/2018 8:48 AM Advance Directive(s) 09/28/2017 7:05 PM Advance Directive Response Recorded Date/ Time Name of Medical Power of Fan Installer May 05, 2022 11:19am Living Will Yes May 05 11:19am Power of Fan Installer Yes May 05, 11:19am Advance Directive Response Recorded Date/ Time Name of Medical Power of Fan Installer May 05, 2022 11:19am Name of Medical Power of Fan Installer SPOUSE June 18, 2022 2:51pm Living Will Yes June 18, 2022 2:51pm Power of Fan Installer Yes May 2:51pm Advance Directive Response Recorded Date/ Time Name of Medical Power of Fan Installer May 05, 2022 10:19am Name of Medical Power of Fan Installer SPOUSE June 18, 2022 1:51pm Living Will Yes June 18, 2022 1:51pm Power of Fan Installer Yes May 1:51pm Advance Directive Response Recorded Date/ Time Living Will Yes June 18, 2022 1:51pm Power of Fan Installer Yes May 1:51pm Advance Directive Response Recorded Date/ Time Living Will Yes June 18, 2022 2:51pm Power of Fan Installer Yes May 2:51pm Hospital Course Note HNO ID: [id number] Author: Graciela Mckeon Service: Hospital Medicine Author [...] AND MEDICAL TEAM: My Main Hospital Doctor: Ramon Mckeon Primary Care Provider: Cliff Pastor MD My Medical Team Members: Treatment Team: Attending Provider: Ramon Mckeon MY CONDITION AT DISCHARGE: Stable REASON I WAS IN THE HOSPIT (more content not included)... Chief Complaint and Reason for Visit Chief Complaint Chronic obstructive pulmonary disease, unspecified Chronic obstructive pulmonary disease, unspecified 6 M FU Cough/Acute Reason for Visit Oral thrush Smoking greater than 40 pack years Stage 3 severe COPD by GOLD classification Stage 3 severe COPD by GOLD classification Chief Complaint Cough/Acute CSCOPE - HISTORY OF POLYPS Reason for Visit Stage 3 severe COPD by GOLD classification GERD (gastroesophageal reflux disease) Hx of colonic polyps Umbilical hernia without obstruction and without gangrene GERD (gastroesophageal reflux disease) Hx of colonic polyps Chief Complaint CSCOPE - HISTORY OF POLYPS Reason for Visit GERD (gastroesophage al reflux disease) Hx of colonic polyps Umbilical hernia without obstruction and without gangrene GERD (gastroesophageal reflux disease) Hx of colonic polyps Abnormal findings on esophagogastroduodenoscopy (EGD) GERD (gastroesophageal reflux disease) Chief Complaint 8 month fu 1/2 PPD SMOKER >40 PACK YRS Reason for Visit GERD (gastroesophage al reflux disease) Hx of colonic polyps Abnormal findings on esophagogastroduodenoscopy (EGD) GERD (gastroesophageal reflux disease) Obesity (BMI 30.0-34.9) Tobacco abuse Stage 3 severe COPD by GOLD classification Chief Complaint 8 month fu 1/2 PPD SMOKER >40 PACK YRS Reason for Visit Obesity (BMI 30.0-34 .9) Tobacco abuse Stage 3 severe COPD by GOLD classification Chief Complaint NICOTINE DEPENDENCE Chief Complaint NICOTINE DEPENDENCE 7 m fu EORDER Reason for Visit Asthma Stage 3 severe COPD by GOLD classification Chief Complaint NICOTINE DEPENDENCE 7 m fu EORDER CHRONIC OBSTRUCTIVE PULMONARY Reason for Visit Asthma Stage 3 severe COPD by GOLD classification Chief Complaint Admit Date EORDER August 30, 2024 1 :49pm INCOMPLETE EMPTING September 07, 2024 1:38pm NICOTINE DEP December 26, 2024 11:2 2am Chief Complaint Admit Date NICOTINE DEP December 26, 2024 11:2 2am 9 M FU January 02, 2025 7:48 am R09.02 - Hypoxemia April 15, 2025 12:4 2pm Reason for Visit Admit Date Hypoxia January 02, 2025 7:48 am Asthma January 02, 2025 7:48 am Smoking greater than 40 pack years January 02, 2025 7:48am Stage 3 severe COPD by GOLD classificati on January 02, 2025 7:48am Chief Complaint Admit Date 9 M FU January 02, 2025 7:48 am R09.02 - Hypoxemia April 15, 2025 12:4 2pm 3 M FU May 01, 2025 2:3 6pm Reason for Visit Admit Date Hypoxia January 02, 2025 7:48 am Asthma January 02, 2025 7:48 am Smoking greater than 40 pack years January 02, 2025 7:48am Stage 3 severe COPD by GOLD classificati on January 02, 2025 7:48am Hypoxia May 01, 2025 2:3 6pm Asthma May 01, 2025 2:3 6pm Smoking greater than 40 pack years Augus t 2024 2:36pm Stage 3 severe COPD by GOLD classificati on May 01, 2025 2:36pm Additional Source Comments (unrecognized sect ion and content) No Status Records FoundNo Status Records FoundNo Status Records FoundNo Status Records Found INFORMATION SOURCE (unrecogn ized section and content) DATE CREATED AUTHOR 03/15/2018 [facility] DATE CREATED AUTHOR AUTHOR'S ORGANIZ ATION 01/02/2019 [facility] DATE CREATED AUTHOR AUTHOR'S ORGANIZ ATION 10/29/2021 [facility] DATE CREATED AUTHOR AUTHOR'S ORGANIZ ATION 06/20/2025 [facility] Source Comments (unrecognize d section and content) In the event this informatio n is protected by the Federal Confidentiality of Alcohol and Drug Abuse Patient Records regulations: The Federal rules restrict any use of the information to criminally investigate or prosecute any alcohol or drug abuse patient.[facility] Reason for Visit (unrecogniz ed section and content) Reason Comments Refill Request [facility] Care Teams (unrecognized sec tion and content) 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 Alexsander Casanova MD Primary Care Provider Active Team Status: Inactive Member Role Status Dates Dr. Alexsander Casanova MD Primary Care Provider Active Dr. Marcelo Morgan MD Attending Provider, Referring Pr ovider Active Team Status: Inactive Member Role Status Dates Dr. Alexsander Casanova MD Primary Care Provider Active Elissa West STOREKEEPER ENGINEERING, STOREKEEPER ENGINEERING-C Attending Provider, Referrin g Provider Active Team Status: Inactive Member Role Status Dates Dr. Alexsander Casanova MD Primary Care Provider, Referr ing Provider Active Aleah Ball NP-C Attending Provider Active Team Status: Inactive Member Role Status Dates Dr. Alexsander Casanova MD Primary Care Provider, Attend ing Provider Active Team Status: Inactive Member Role Status Dates Dr. Alexsander Casanova MD Primary Care Pr ovider, Attending Provider, Referring Provider Active Team Status: Inactive Member Role Status Dates Dr. Alexsander Casanova MD Primary Care Provider Active Elissa West NP, STOREKEEPER ENGINEERING-C Attending Provider Active Team Status: Inactive Member Role Status Dates Dr. Alexsander Casanova MD Primary Care Provider, Referr ing Provider Active Dr. Marcelo Morgan MD Attending Provider Active Team Status: Inactive Member Role Status Dates Dr. Alexsander Casanova MD Primary Care Provider Active Start: August 30, 2024 End: August 30, 2024 Dr. Alexsander Casanova MD Attending Provider Active Start: August 30, 2024 End: August 30, 2024 Dr. Alexsander Casanova MD Referring Provider Active Start: August 30, 2024 End: August 30, 2024 Team Status: Inactive Member Role Status Dates Dr. Alexsander Casanova MD Primary Care Provider Active Start: September 07, 2024 End: September 07, 2024 Dr. Alexsander Casanova MD Attending Provider Active Start: September 07, 2024 End: September 07, 2024 Dr. Alexsander Casanova MD Referring Provider Active Start: September 07, 2024 End: September 07, 2024 Team Status: Inactive Member Role Status Dates Dr. Alexsander Casanova MD Primary Care Provider Active Start: December 26, 2024 End: December 26, 2024 Elissa West [employer]OREK[employer] ENGINEERING, STOREKEEPER ENGINEERING-C Attending Provider Active Start: December 26, 2024 End: December 26, 2024 Elissa West STOREKEEPER ENGINEERING, STOREKEEPER ENGINEERING-C Referring Provider Active Start: December 26, 2024 End: December 26, 2024 Team Status: Active Member Role/Relationship Status Dates Dr. Alexsander Casanova MD Primary Care Provider Active Team Status: Inactive Member Role/Relationship Status Dates Dr. Alexsander Casanova MD Primary Care Provider Active Start: December 26, 2024 End: December 26, 2024 Elissa West STOREKEEPER ENGINEERING, STOREKEEPER ENGINEERING-C Attending Provider Active Start: December 26, 2024 End: December 26, 2024 Elissa West STOREKEEPER ENGINEERING, STOREKEEPER ENGINEERING-C Referring Provider Active Start: December 26, 2024 End: December 26, 2024 Team Status: Inactive Member Role/Relationship Status Dates Dr. Alexsander Casanova MD Primary Care Provider Active Start: January 02, 2025 End: January 02, 2025 Dr. Alexsander Casanova MD Referring Provider Active Start: January 02, 2025 End: January 02, 2025 Elissa West STOREKEEPER ENGINEERING, STOREKEEPER ENGINEERING-C Attending Provider Active Start: January 02, 2025 End: January 02, 2025 Team Status: Inactive Member Role/Relationship Status Dates Dr. Alexsander Casanova MD Primary Care Provider Active Start: April 15, 2025 End: April 15, 2025 Elissa West STOREKEEPER ENGINEERING, STOREKEEPER ENGINEERING-C Attending Provider Active Start: April 15, 2025 End: April 15, 2025 Elissa West STOREKEEPER ENGINEERING, STOREKEEPER ENGINEERING-C Referring Provider Active Start: April 15, 2025 End: April 15, 2025 Team Status: Inactive Member Role/Relationship Status Dates Dr. Alexsander Casanova MD Primary Care Provider Active Start: January 02, 2025 End: January 02, 2025 Dr. Alexsander Casanova MD Referring Provider Active Start: January 02, 2025 End: January 02, 2025 ANANDA Faye NP Attending Provider Active Start: January 02, 2025 End: January 02, 2025 Team Status: Inactive Member Role/Relationship Status Dates Dr. Alexsander Casanova MD Primary Care Provider Active Start: April 15, 2025 End: April 15, 2025 ANANDA Faye NP Attending Provider Active Start: April 15, 2025 End: April 15, 2025 ANANDA Faye NP Referring Provider Active Start: April 15, 2025 End: April 15, 2025 Team Status: Inactive Member Role/Relationship Status Dates Dr. Alexsanedr Casanova MD Primary Care Provider Active Start: May 01, 2025 End: May 01, 2025 Dr. Alexsander Casanova MD Referring Provider Active Start: May 01, 2025 End: May 01, 2025 ANANDA Faye NP Attending Provider Active Start: May 01, 2025 End: May 01, 2025 FOR RECORDS PERTAINING TO PATIENTS WHO ARE [...] BE BASED ON THE PRIMARY CLINICAL RECORDS. [employer] provides no warranty or guarantee of the accuracy or completeness of information in this document.
== END | disposition home or self-care (01) ==
PROVIDERS: PCP Family Medicine; Referring Provider Family Medicine; Visit Provider Family Medicine
DX: N40.1 Benign prostatic hyperplasia with lower urinary tract symptoms (principal); R33.8 Other retention of urine
CPT/HCPCS: 51798

== ENCOUNTER 2025-07-17 07:26 | Day surgery (SDC) | payer MEDICARE, SELFPAY ==
[2025-07-17] VITALS (7 sets, daily range): BP systolic 88–106; BP diastolic 72–79; PULSE 63–86; RESP 16–18; TEMP 36.6–36.8; O2SAT 95–99; BMI 29.7
--- OUTSIDE RECORDS SUMMARY | 2025-07-17 07:30 | XMS RPT_ITS | CCD ---
Author Organization [facility] Care Team Providers Care Tack Welder Name Role Phone MAE CUEVA Admitting Unavailable RAMON MCKEON Attending Unavailable Cliff Pastor Primary Care Provider [phone] Dr. Marcelo Morgan Attending Provider Dr. Marcelo Morgan Referring Provider Dr. Marcelo Morgan Other Provider Dr. Salvador Herndon Primary Care Provider [phone] [place], [place] Referring Provider Unavailable Brett MUD TEMPERER, TAMMIE-C Elissa Attending Provider [phone] Dr. Alexsander Casanova Primary Care Provider [phone] Brett CHO NP-C Elissa Referring Provider [phone] Dr. Alexsander Casanova Primary Care Provider [phone] Brett CHO, MUD TEMPERER-C Elissa Attending Provider [phone] Dr. Alexsander Casanova Referring Provider Dr. Lilian Kimbrough Attending Provider Dr. Lilian Kimbrough Other Provider Dr. Alexsander Casanova Primary Care Provider [phone] Dr. Alexsander Casanova Primary Care Provider [phone] Dr. Alexsander Casanova Referring Provider Dr. Lilian Kimbrough Attending Provider Dr. Lilian Kimbrough Other Provider Dr. Marcelo Morgan Attending Provider Dr. Marcelo Morgan Referring Provider Dr. Alexsander Casanova Primary Care Provider Dr. Alexsander Casanova Primary Care Provider Dr. Alexsander Casanova Referring Provider Dr. Marcelo Morgan Attending Provider [phone] Edilberto LONGORIA, Dr. Alexsander Levy Primary Care Provider Edilberto LONGORIA, Dr. Alexsander Levy Attending Provider Edilberto LONGORIA, Dr. Alexsander Levy Referring Provider Brett MUD TEMPERER-C, Elissa Attending Provider Brett MUD TEMPERER-C, Elissa Referring Provider Edilberto LONGORIA, Dr. Alexsander Levy Primary Care Provider Edilberto LONGORIA, Dr. Alexsander Levy Referring Provider Edilberto LONGORIA, Dr. Alexsander Levy Primary Care Provider Brett MUD TEMPERER-C, Elissa Attending Provider Brett MUD TEMPERER-C, Elissa Referring Provider Edilberto LONGORIA, Dr. Alexsander Levy Primary Care Physician Brett MUD TEMPERER-C, Elissa Attending Physician Edilberto LONGORIA, Dr. Alexsander Levy Referring Provider Edilberto LONGORIA, Dr. Alexsander Levy Attending Physician Alexsander Casanova Referring Unavailable Brett MUD TEMPERER, Elissa Attending Unavailable Alexsander Casanova Primary Care Unavailable Alexsander Casanova Primary Care Unavailable Brett MUD TEMPERER, Elissa Attending Unavailable Alexsander Casanova Referring Unavailable Brett MUD TEMPERER, Elissa Attending Unavailable Brett MUD TEMPERER, Elissa Referring Unavailable Alexsander Casanova Primary Care Unavailable Alexsander Casanova Primary Care Unavailable Lilian Kimbrough Attending Unavailable Alexsander Casanova Referring Unavailable Alexsander Casanova Primary Care Unavailable Alexsander Casanova Attending Unavailable Alexsander Casanova Primary Care Unavailable Alexsander Casanova Attending Unavailable Alexsander Casanova Referring Unavailable Alexsander Casanova Referring Unavailable Alexsander Casanova Primary Care Unavailable Alexsander Casanova Attending Unavailable Alexsander Casanova Referring Unavailable Alexsander Casanova Primary Care Unavailable Alexsander Casanova Attending Unavailable Brett MUD TEMPERER, Elissa Attending Unavailable Brett CHO, Elissa Referring Unavailable Alexsander Casanova Primary Care Unavailable Allergies Allergy Classification Reported Allergen(s) Allergy Type Date of Onset Reaction(s) Facility (16 sources) formoterol Drug Allergy 03-22-2019 Unknown [facility] Work Phone: (16 sources) Ibuprofen Drug Allergy 03-22-2019 Intolerance [facility] Work Phone: (16 sources) Mometasone Drug Allergy 03-22-2019 Unknown [facility] Work Phone: (1 source) formoterol Drug Allergy 05-01-2025 [facility] (1 source) Ibuprofen Drug Allergy 05-01-2025 [facility] (1 source) Mometasone Drug Allergy 05-01-2025 [facility] Medications Current Medications Medication Drug Class(es) Dates Sig (Normalized) Sig (Original) [id number] 200 actuat albuterol 0.09 mg/actuat metered dose inhaler (16 sources) beta2-Adrenergic Agonist Start: 12-11-2021 Start: 12-11-2021 take 1 puff(s) by in halation every six hours Albuterol Sulfate Active 2 PUFF INHALATION EVERY 6 HOURS December 10, 2021 11:00pm albuterol HFA (P ROVENTIL HFA, VENTOLIN HFA) 90 mcg/actuation inhaler Inhale 2 Puffs as instructed. 0 Active Comment on above: Inhale 2 Puffs as in structed. Ksdbtmreuw-Sbzihioa-Bjdupeul ol (4 sources) Corticosteroid, beta2-Adrenergic Agonist Start: 01-02-2025 Start: 01-02-2025 Budesonide-Gly copyr-Formoterol (Breztri Aerosphere) 160-9-4.8 mcg/actuation HFA aerosol inhaler Active 2 NMA INHALATION TWICE A DAY January 02, 2025 12:00am busPIRone hydrochloride 10 mg oral tablet (1 source) Start: 11-24-2017 take 10 mg by mouth twice daily Buspirone Active 10 MG PO TWICE A DAY November 24, 2017 1:00am celecoxib 100 mg oral capsule (1 source) Nonsteroidal Anti-inflammatory Drug Start: 11-24-2017 take 100 mg by mouth twice daily Celecoxib Active 100 MG PO TWICE A DAY November 24, 2017 1:00am cholecalciferol 0.05 mg oral capsule (15 sources) Vitamin D Start: 11-24-2017 take 1 capsule by mouth once daily Start: 11-24-2017 take 2000 [IU] by mouth [...] May 05, 2022 12:00am Cyanocobalamin-Liver Extract (Vitamin I71-Qjbrs) Tablet (1 source) Start: 05-05-2022 take 1 tablet by mouth every week Cyanocobalamin-Liver Extract (Vitamin C26-Hdicn) Tablet Active 1 TABLET PO EVERY WEEK May 05, 2022 12:00am Cyanocobalamin-Liver Extract tablet (3 sources) Start: 05-01-2025 Start: 05-01-2025 Cyanocobalamin -Liver Extract tablet Active 1 {tbl} PO EVERY WEEK May 01, 2025 2:45pm docusate sodium 100 mg oral capsule (14 sources) Start: 05-05-2022 take 1 capsule by mouth once daily finasteride 5 mg oral tablet (16 sources) 5-alpha Reductase Inhibitor Start: 12-11-2021 take 1 tablet by mouth once daily Comment on above: Take 5 mg by mouth o nce daily. Fluticasone Propion-Salmeterol (1 source) Corticosteroid, beta2-Adrenergic Agonist Start: 12-11-2021 Fluticasone Propion-Salmeterol (Wixela Inhub) 500-50 mcg/dose blister with device Active 1 INH INHALATION Q12H December 11, 2021 12:00am Multivitamin With Folic Acid (Adult Multivitamin Extra Vitd3) 200 mcg tablet,chewable (15 sources) Start: 11-24-2017 Start: 11-24-2017 Multivitamin W ith Folic Acid [...] MCG PO November 24, 2017 1:00am nystatin [id number] unt/ml oral suspension (1 source) Polyene Antifungal Start: 12-11-2021 Nystatin Active 5 ML MUCOUS MEM THREE TIMES A DAY December 11, 2021 12:00am swish and swallow 5 cc three times per day for 10 days roflumilast 0.5 mg oral tablet (4 sources) Phosphodiesterase 4 Inhibitor Start: 01-02-2025 take 1 tablet by mouth once daily Start: 01-02-2025 take 1 tablet by jennifer th once daily Roflumilast (Daliresp) 500 mcg tablet Active 500 ug PO DAILY 25 08January 02, 2025 12:00am Hypoxia Hypoxemia tamsulosin hydrochloride 0.4 mg oral capsule (16 sources) alpha-Adrenergic Joss Start: 11-24-2017 take 1 capsule by mouth every twenty-four hours at bedtime Start: 11-24-2017 take 0.4 mg by mouth [...] as needed. amLODIPine 5 mg oral tablet (15 sources) Dihydropyridine Calcium Channel Joss Start: 05-05-20 End: 03-19-20 take 1 tablet by mouth at bedtime Amlodipine 5 mg Tablet Discontinued 5 mg PO AT BEDTIME May 05, 2022 12:00am March 19, 2024 2:32pm take 1 tablet by mouth once katherine y amLODIPine (NORVASC) 5 mg tablet Take 5 mg by mouth once daily. 0 Active Comment on above: Take 5 mg by mouth o nce daily. atorvastatin 20 mg oral tablet (15 sources) HMG-CoA Reductase Inhibitor Start: End: take 1 tablet by mouth at bedtime [...] daily. cetirizine hydrochloride 10 mg oral capsule (15 sources) Histamine-1 Receptor Antagonist Start: 01-27-20 21 End: 03-19-20 24 take 1 capsule by mouth once daily [...] by jennifer twice daily. Cyanocobalamin-Liver Extract Tablet (5 sources) Start: 05-05-20 End: 05-01-20 Cyanocobalamin-Liver Extract [...] (FLONASE) 50 mcg/actuation nasal spray Use 1 [place] in each nostril daily at bedtime. As needed. BEFORE LYING DOWN FOR BED 1 Bottle 0 03/22/2019 Active Comment on above: Use 1 [place] in each nostril daily at bedtime. As needed. BEFORE LYING DOWN FOR BED Fluticasone-Umecl idin-Vilanter (20 sources) Anticholinergic, Corticosteroid, beta2-Adrenergic Agonist Start: 08-31-2024 End: 01-02-2025 Fluticasone-Umecli din-Vilanter (Trelegy Ellipta) 100-62.5-25 mcg blister with device Discontinued 1 NMA INHALATION DAILY 60 5 August 31, 2024 11:35am January 02, 2025 8:07am Start: 08-31-2024 Fluticasone-Um eclidin-Vilanter (Trelegy Ellipta) 100-62.5-25 mcg blister with device Active 1 NMA INHALATION DAILY 60 August 31, 2024 11:35am Start: 09-07-2023 End: 08-31-2024 Khsaxpmhpvc-Mkyrljqlz-Ogbcwa er (Trelegy Ellipta) 100-62.5-25 mcg blister with device Discontinued 1 NMA INHALATION DAILY 60 September 07, 2023 3:03pm August 31, 2024 11:35am Start: 09-07-2023 End: 08-31-2024 Wthwhwqinjb-Gsbsebjlx-Jusikv er (Trelegy Ellipta) 100-62.5-25 mcg blister with device Discontinued 1 NMA INHALATION DAILY 60 September 07, 2023 3:03pm August 31, 2024 11:35am Start: 09-07-2023 Fluticasone-Um eclidin-Vilanter (Trelegy Ellipta) 100-62.5-25 mcg blister with device Active 1 INH INHALATION DAILY September 07, 2023 2:03pm Start: 05-05-2022 End: 09-07-2023 Joaiyklmbin-Ggdkuteev-Orqzpc er (Trelegy Ellipta) 100-62.5-25 mcg Blister With Device Discontinued 1 NMA INHALATION DAILY May 05, 2022 12:00am September 07, 2023 3:04pm Start: 05-05-2022 End: 09-07-2023 Zqzrzmyekel-Tgjyayxks-Ctryjs er (Trelegy Ellipta) 100-62.5-25 mcg Blister With [...] guaiFENesin 600 mg extended release oral tablet (19 sources) Start: 12-13-2023 End: 03-19-2024 take 2 [...] lansoprazole 15 mg delayed release oral capsule (14 sources) Proton Pump Inhibitor Start: 05-05-2022 End: [...] Q24H 7 7 0 January 27, 2022 12:00am February 02, 2022 12:00am February 03, 2022 12:04am Start: 01-28-2021 End: 02-04-2021 take 1 tablet by mouth every twenty-four hours Levofloxacin 750 mg tablet Discontinued 750 mg PO Q24H 7 7 0 January 28, 2021 12:00am February 03, 2021 12:00am February 04, 2021 12:02am montelukast 10 mg oral tablet (5 sources) Leukotriene Receptor Antagonist Start: 12-13-2023 End: 03-19-2024 take 1 tablet by mouth once daily in the evening Montelukast 10 mg tablet Discontinued 10 mg PO EVERY EVENING 30 3 December 13, 2023 12:00am March 19, 2024 2:36pm pantoprazole 40 mg delayed release oral tablet (13 sources) Proton Pump Inhibitor Start: 05-13-2022 End: 03-19-2024 take 1 tablet by mouth once daily Pantoprazole 40 mg tablet,delayed release (DR/EC) Discontinued 40 mg PO DAILY 30 5 May 13, 2022 12:00am March 19, 2024 2:35pm predniSONE 20 mg oral tablet (20 sources) Start: 07-21-2023 End: 09-07-2023 take 3 tablets by mouth once daily at mealtime Prednisone 20 mg tablet Discontinued 60 mg PO daily 15 July 21, 2023 12:00am September 07, 2023 [...] 3 days sertraline 50 mg oral tablet (15 sources) Serotonin Reuptake Inhibitor Start: 12-11-2021 End: 03-19-2024 take 1 tablet by mouth once daily Sertraline 50 mg tablet Discontinued 50 mg PO DAILY December 11, 2021 12:00am March 19, 2024 2:35pm sucralfate 1000 mg oral tablet (13 sources) Aluminum Complex Start: 06-23-2022 End: 03-19-2024 [...] 2.5 ug by inhalation once daily Tiotropium [place] (Spiriva Respimat) 2.5 mcg/actuation mist Discontinued 2 NMA INHALATION DAILY 4 January 27, 2021 10:43am June 26, 2021 5:25am Start: 01-27-2021 End: 06-26-2021 take 1 puff(s) by inhalation once daily Tiotropium [place] (Spiriva Respimat) 2.5 mcg/actuation mist Discontinued 2 PUFF INHALATION DAILY January 27, 2021 9:43am June 26, 2021 4:25am Start: 11-18-2020 End: 01-27-2021 take 2.5 ug by inhalation once daily Tiotropium [place] (Spiriva Respimat) 2.5 mcg/actuation mist Discontinued 2 NMA INHALATION DAILY 4 November 18, 2020 1:00am January 27, 2021 10:43am Start: 11-18-2020 End: 01-27-2021 take 2.5 ug by inhalation once daily Tiotropium [place] (Spiriva Respimat) 2.5 mcg/actuation mist Discontinued 2 NMA INHALATION DAILY November 18, 2020 1:00am January 27, 2021 10:43am Start: 11-18-2020 End: 01-27-2021 take 1 puff(s) by inhalation once daily Tiotropium [place] (Spiriva Respimat) 2.5 mcg/actuation mist Discontinued 2 PUFF INHALATION DAILY November 18, 2020 12:00am January 27, 2021 9:43am Start: 11-18-2020 End: 01-27-2021 take 1 puff(s) by inhalation once daily Tiotropium [place] (Spiriva Respimat) 2.5 mcg/actuation mist Discontinued 2 [...] Date Documented Da te Episodic/Chronic Abdominal hernia (17 sources) Umbilical hernia; Translations: [Umbilical hernia without obstruction or gangrene] Episodic Comment on above: About 1 cm, reducibl e, asymptomatic Asthma (20 sources) Unspecified asthma with (acute) exacerbation; Translations: [...] hypertension] Onset: 5 Chronic Hyperplasia of prostate (1 source) Benign prostatic hyperplasia with lower urinary tract symptoms; Translations: [Benign prostatic hyperplasia with lower urinary tract symptoms] Onset: 5 Chronic Mycoses (16 sources) Candidiasis of mouth; Translations: [Candidal stomatitis] Episodic Nutritional deficiencies (1 source) Vitamin D deficiency, unspecified; Translations: [Vitamin D deficiency, unspecified] Onset: 5 Chronic Other and unspecified benign neoplasm (14 sources) History of polyp of colon; Translations: [Personal history of colonic polyps] 03-31-2022 Episodic Other and unspecified benign neoplasm (7 sources) Personal history of colonic polyps; Translations: [Personal history of colonic polyps] Episodic Other bone disease and musculoskeletal deformities (20 sources) Segmental and somatic dysfunction; Translations: [Segmental and somatic dysfunction of cervical region] 01-02-2018 Episodic Other gastrointestinal disorders (13 sources) Gastrointestinal tract problem; Translations: [Other specified symptoms and signs involving the digestive system and abdomen] 06-23-2022 Episodic Comment on above: Focal indeterminate dysplasia at the GE junction Other gastrointestinal disorders (3 sources) Other specified symptoms and signs involving the digestive system and abdomen; Translations: [Other abnormal clinical findings] Episodic Other lower respiratory disease (15 sources) Nodule of lung; Translations: [Solitary pulmonary nodule] 06-17-2021 Episodic Other lower respiratory disease (9 sources) Hypoxia; Translations: [Hypoxemia] 01-02-2025 Episodic Other lower respiratory disease (1 source) Hypoxemia; Translations: [Hypoxemia] Onset: Episodic Other nutritional; endocrine; and metabolic disorders (15 sources) Obese class I; Translations: [Obesity, unspecified] 11-18-2020 Chronic Other nutritional; endocrine; and metabolic disorders (2 sources) Obesity, unspecified; Translations: [Obesity, unspecified] Chronic Other upper respiratory disease (1 source) Rhinitis; Translations: [Chronic rhinitis] Onset: 9 12-31-2018 Chronic Residual codes; unclassified (15 sources) Hypersomnia; Translations: [Hypersomnia, unspecified] 11-18-2020 Chronic Residual codes; unclassified (15 sources) Tobacco user; Translations: [Tobacco use] 06-17-2021 Episodic Residual codes; unclassified (2 sources) Tobacco use; Translations: [Tobacco use disorder] Episodic Spondylosis; intervertebral disc disorders; other back problems (20 sources) Degeneration of cervical intervertebral disc; Translations: [Other cervical disc degeneration, unspecified cervical region] 01-03-2018 Chronic Substance-related disorders (20 sources) Nicotine dependence; Translations: [Nicotine dependence, unspecified, [...] Test Name Value Interpretation Reference Range Facility Post Void Residual Bladderon 06-20-2025 Post Void Residual Bladder [facility] [address] [place] [address] Post Void Residual Bladder MR#: [id number] Acct: [id number] Name: KALE SHEEHAN Rep #: [id number] : 1955 M 69 From: Ve[facility] Westfall PCP: Dr. Alexsander Casanova MD Status: REG CLI Study: Post Void Residual Bladder Date of Exam: 06/20 Exam# [id number] Ordering Dr: Alexsander Casanova MD PROCEDURE: POST VOID RESIDUAL BLADDER 06/20/2025 REASON FOR EXAM: URINARY RETENTION TECHNIQUE: Procedure Code: USPVU Modality: US Procedure: POST VOID RESIDUAL BLADDER COMPARISON: Postvoid residual bladder exam dated 09/07/2024 FINDINGS: The prevoid urinary bladder measures 12.3 x 9.7 x 10.5 cm. Bladder wall thickness measures 3 mm. Prevoid urinary bladder volume is 653 mL. Contour of the bladder wall is smooth. There are no intraluminal masses. There are no stones identified. There is no Sanchez catheter. There is no right UVJ calculus. There is a right ureteral jet. There is an no left UVJ calculus. There is a left ureteral jet. Postvoid urinary bladder measures 8.9 x 7.0 x 8.5 cm. Postvoid urinary bladder volume is 276 mL. US/Post Void Residual Bladder IMPRESSION: Normal appearance to the urinary bladder. There is an abnormally large postvoid residual measuring 276 mL. This puts the patient increased risk for UTIs and urinary reflux. Reading Location: [facility] CC: Dr. Alexsander Casanova MD Melt Superintendant: Signed Normal [facility] Absolute lymphocyte countOrd ered By: Alexsander Casanova on 06-13-2025 Lymphocytes Auto (Unsp spec) [#/Vol] 1.86 10*3/uL 0.83-4.51 [facility] Absolute neutrophil countOrd ered By: Alexsander Casanova on 06-13-2025 Neutrophils (Bld) [#/Vol] 4.4 10*3/uL 2.0-7.7 [facility] Anion gap in Serum or Plasma Ordered By: Alexsander Casanova on 06-13-2025 Anion gap [Moles/Vol] 12 mmol/L 5-15 [facility] Automated lymphocyte count a s percentage of total leukocytesOrdered By: Alexsander Casanova on 06-13-2025 Lymphocytes/100 WBC Auto (Unsp spec) 24.6 % - [facility] BUN/creatinine ratioOrdered By: Alexsander Casanova on 06-13-2025 Urea nitrogen/Creatinine [Mass ratio] 10.3 mg/mg 10- [facility] Basophil percentageOrdered B y: Alexsander Casanova on 06-13-2025 Basophils/100 WBC (Bld) 0.5 % 0-1 [facility] Bilirubin Test strip Ql (U)O rdered By: Alexsander Casanova on 06-13-2025 Bilirubin Ql (U) Negative Negative [facility] Bilirubin, totalOrdered By: Alexsander Casanova on 06-13-2025 Bilirubin [Mass/Vol] 0.45 mg/dL 0.00-1.30 [facility] CBC W/Diff, Automatedon 05-27 Absolute Lymph 1.86 X10 3/uL Normal 0.83-4.51 [facility] Comment on above: Order Comment: Order Date: 06/12/25 Order Info: 0184-1 - CBCD Performed By: #### L [id number], L100.0100, L506.0400, L500.4050, L501.9985, L500.4100, L501.5200 #### [facility] [address] [place], [address] Absolute Neut 4.4 X10 3/uL Normal 2.0-7.7 [facility] Comment on above: Order Comment: Order Date: 06/12/25 Order Info: 0184-1 - CBCD Performed By: #### L [id number], L100.0100, L506.0400, L500.4050, L501.9985, L500.4100, L501.5200 #### [facility] [address] [place], [place], [id number] Basophils/100 WBC (Bld) 0.5 % Normal 0-1 [facility] Comment on above: Order Comment: Order Date: 06/12/25 Order Info: 0184-1 - CBCD Performed By: #### L [id number], L100.0100, L506.0400, L500.4050, L501.9985, L500.4100, L501.5200 #### [facility] [address] [place], [place], [id number] ([phone]) Eosinophils/100 WBC (Bld) 3.8 % Normal 0-5 [facility] Comment on above: Order Comment: Order Date: 06/12/25 Order Info: 0184-1 - CBCD Performed By: #### L [id number], L100.0100, L506.0400, L500.4050, L501.9985, L500.4100, L501.5200 #### [facility] [address] [place], [place], [id number] Erythrocyte distribution width (RBC) [Ratio] 11.9 % Normal 11.6-14.6 [facility] Comment on above: Order Comment: Order Date: 06/12/25 Order Info: 0184-1 - CBCD Performed By: #### L [id number], L100.0100, L506.0400, L500.4050, L501.9985, L500.4100, L501.5200 #### [facility] [address] [place], [place], [id number] Hematocrit (Bld) [Volume fraction] 41.6 % Normal 40-54 [facility] Comment on above: Order Comment: Order Date: 06/12/25 Order Info: 0184-1 - CBCD Performed By: #### L [id number], L100.0100, L506.0400, L500.4050, L501.9985, L500.4100, L501.5200 #### [facility] [address] [place], [place], [id number] [phone] Hemoglobin (Bld) [Mass/Vol] 14.1 g/dL Normal 13.0-16.5 [facility] Comment on above: Order Comment: Order Date: 06/12/25 Order Info: 0184- - CBCD Performed By: #### L [id number], L100.0100, L506.0400, L500.4050, L501.9985, L500.4100, L501.5200 #### [facility] [address] [place], [address] IG% 0.400 Normal 0.0-0.9 [facility] Comment on above: Order Comment: Order Date: 06/12/25 Order Info: [id number] - CBCD Result Comment: IG% - Immature Granulocytes (promyelocytes, myelocytes and metamyelocytes) > 1% indicates that a LEFT SHIFT is Present. Performed By: #### L [id number], L100.0100, L506.0400, L500.4050, L501.9985, L500.4100, L501.5200 #### [facility] [address] [place], [address] Lymphocytes/100 WBC (Bld) 24.6 % Normal 19-41 [facility] Comment on above: Order Comment: Order Date: 06/12/25 Order Info: 0184- - CBCD Performed By: #### L [id number], L100.0100, L506.0400, L500.4050, L501.9985, L500.4100, L501.5200 #### [facility] [address] [place], [address] MCH (RBC) [Entitic mass] 32.1 pg High 27.0-32.0 [facility] Comment on above: Order Comment: Order Date: 06/12/25 Order Info: 0184- - CBCD Performed By: #### L [id number], L100.0100, L506.0400, L500.4050, L501.9985, L500.4100, L501.5200 #### [facility] [address] [place], [address] MCHC (RBC) [Mass/Vol] 33.9 g/dL Normal 32-36 [facility] Comment on above: Order Comment: Order Date: 06/12/25 Order Info: 0184-1 - CBCD Performed By: #### L [id number], L100.0100, L506.0400, L500.4050, L501.9985, L500.4100, L501.5200 #### [facility] [address] [place], [address] MCV (RBC) [Entitic vol] 94.8 fL High 80-94 [facility] Comment on above: Order Comment: Order Date: 06/12/25 Order Info: 0184- - CBCD Performed By: #### L 501.9520, L100.0100, L506.0400, L500.4050, L501.9985, L500.4100, L501.5200 #### [facility] [address] [place], [address] Monocytes/100 WBC (Bld) 12.5 % High 0-10 [place] Comment on above: Order Comment: Order Date: 06/12/25 Order Info: 0184-1 - CBCD Performed By: #### L [id number], L100.0100, L506.0400, L500.4050, L501.9985, L500.4100, L501.5200 #### [facility] [address] [place], [address] Neutrophils/100 WBC (Bld) 58.2 % Normal 47-70 [facility] Comment on above: Order Comment: Order Date: 06/12/25 Order Info: 0184-1 - CBCD Performed By: #### L [id number], L100.0100, L506.0400, L500.4050, L501.9985, L500.4100, L501.5200 #### [facility] [address] [place], [address] Nucleated RBC (Bld) [#/Vol] 0 10*3/uL Normal 0-5 [facility] Comment on above: Order Comment: Order Date: 06/12/25 Order Info: 0184-1 - CBCD Performed By: #### L [id number], L100.0100, L506.0400, L500.4050, L501.9985, L500.4100, L501.5200 #### [facility] [address] [place], [address] Platelet mean volume (Bld) [Entitic vol] 12.0 fL Normal 6.2-12.0 [facility] Comment on above: Order Comment: Order Date: 06/12/25 Order Info: 0184-1 - CBCD Performed By: #### L [id number], L100.0100, L506.0400, L500.4050, L501.9985, L500.4100, L501.5200 #### [facility] [address] [place], [address] Platelets (Bld) [#/Vol] 191 10*3/uL Normal 150-450 [facility] Comment on above: Order Comment: Order Date: 06/12/25 Order Info: 0184-1 - CBCD Performed By: #### L [id number], L100.0100, L506.0400, L500.4050, L501.9985, L500.4100, L501.5200 #### [facility] [address] [place], [place], [address] RBC (Bld) [#/Vol] 4.39 10*6/uL Low 4.6-6.2 [facility] Comment on above: Order Comment: Order Date: 06/12/25 Order Info: [id number] - CBCD Performed By: #### L 501.9520, L100.0100, L506.0400, L500.4050, L501.9985, L500.4100, L501.5200 #### [facility] [address] [place], [address] RDW SD 41.3 fl Normal 35.1-43.9 [facility] Comment on above: Order Comment: Order Date: 06/12/25 Order Info: [id number] - CBCD Performed By: #### L 501.9520, L100.0100, L506.0400, L500.4050, L501.9985, L500.4100, L501.5200 #### [facility] [address] [place], [place], [id number] WBC (Bld) [#/Vol] 7.6 10*3/uL Normal 4.4-11.0 [facility] Comment on above: Order Comment: Order Date: 06/12/25 Order Info: [id number] - CBCD Performed By: #### L 501.9520, L100.0100, L506.0400, L500.4050, L501.9985, L500.4100, L501.5200 #### [facility] [address] [place], [place], [id number] Calculated very low density lipoprotein (VLDL) cholesterol measurementOrdered By: Alexsander Casanova on 06-13-2025 Calculated very low density lipoprotein (VLDL) cholesterol measurement 17 mg/dL 5-40 [facility] Carbon dioxide, total [Moles /volume] in Central venous bloodOrdered By: Alexsander Casanova on 06-13-2025 CO2 [Moles/Vol] 24.4 mmol/L 21.0-32.0 [facility] Chloride assayOrdered By: Silvana Casanova on 06-13-2025 Chloride [Moles/Vol] 105 mmol/L 98-108 [facility] Comprehensive Metabolic Prof ilon 06-13-2025 Albumin [Mass/Vol] 4.3 g/dL Normal 3.4-4.8 [facility] Comment on above: Order Comment: Order Date: 06/12/25 Order Info: [id number] - CMP Order Info: [id number] - LIPID Order Info: [id number] - MG Order Info: [id number] - TSH Order Info: 3024-7 - T4F Performed By: #### L 501.9520, L100.0100, L506.0400, L500.4050, L501.9985, L500.4100, L501.5200 #### [facility] [address] [place], [address] Albumin/Globulin [Mass ratio] 1.6 {ratio} Normal 0.9-2.4 [facility] Comment on above: Order Comment: Order Date: 06/12/25 Order Info: 07 - CMP Order Info: [id number] - LIPID Order Info: [id number] - MG Order Info: [id number] - TSH Order Info: 3024-7 - T4F Performed By: #### L 501.9520, L100.0100, L506.0400, L500.4050, L501.9985, L500.4100, L501.5200 #### [facility] [address] [place], [address] ALK PHOS 78 U/L Normal 40-129 [facility] Comment on above: Order Comment: Order Date: 06/12/25 Order Info: 0786- - CMP Order Info: [id number] - LIPID Order Info: [id number] - MG Order Info: [id number] - TSH Order Info: 3024-7 - T4F Performed By: #### L 501.9520, L100.0100, L506.0400, L500.4050, L501.9985, L500.4100, L501.5200 #### [facility] [address] [place], [address] ALT [Catalytic activity/Vol] 31 U/L Normal <=46 [facility] Comment on above: Order Comment: Order Date: 06/12/25 Order Info: 86-1 - CMP Order Info: [id number] - LIPID Order Info: [id number] - MG Order Info: [id number] - TSH Order Info: 302-7 - T4F Performed By: #### L 501.9520, L100.0100, L506.0400, L500.4050, L501.9985, L500.4100, L501.5200 #### [facility] [address] [place], [address] AST [Catalytic activity/Vol] 24 U/L Normal <=37 [facility] Comment on above: Order Comment: Order Date: 06/12/25 Order Info: 86-1 - CMP Order Info: [id number] - LIPID Order Info: [id number] - MG Order Info: [id number] - TSH Order Info: 302-7 - T4F Performed By: #### L 501.9520, L100.0100, L506.0400, L500.4050, L501.9985, L500.4100, L501.5200 #### [facility] [address] [place], [place], [id number] Bilirubin [Mass/Vol] 0.45 mg/dL Normal 0.00-1.30 [facility] Comment on above: Order Comment: Order Date: 06/12/25 Order Info: 86-1 - CMP Order Info: [id number] - LIPID Order Info: [id number] - MG Order Info: 3015-3 - TSH Order Info: 3024-7 - T4F Performed By: #### L 501.9520, L100.0100, L506.0400, L500.4050, L501.9985, L500.4100, L501.5200 #### [facility] [address] [place], [place], [id number] BUN/CRE 10.3 RATIO Normal 10-20 [facility] Comment on above: Order Comment: Order Date: 06/12/25 Order Info: 86-1 - CMP Order Info: [id number] - LIPID Order Info: [id number] - MG Order Info: 3016-3 - TSH Order Info: 3024-7 - T4F Performed By: #### L 501.9520, L100.0100, L506.0400, L500.4050, L501.9985, L500.4100, L501.5200 #### [facility] [address] [place], [address] Calcium [Mass/Vol] 9.6 mg/dL Normal 7.6-11.0 [facility] Comment on above: Order Comment: Order Date: 06/12/25 Order Info: 86-1 - CMP Order Info: [id number] - LIPID Order Info: [id number] - MG Order Info: 6-3 - TSH Order Info: 3024-7 - T4F Performed By: #### L 501.9520, L100.0100, L506.0400, L500.4050, L501.9985, L500.4100, L501.5200 #### [facility] [address] [place], [address] Chloride [Moles/Vol] 105 mmol/L Normal 98-108 [facility] Comment on above: Order Comment: Order Date: 06/12/25 Order Info: [id number] - CMP Order Info: [id number] - LIPID Order Info: [id number] - MG Order Info: 3016-3 - TSH Order Info: 3024-7 - T4F Performed By: #### L 501.9520, L100.0100, L506.0400, L500.4050, L501.9985, L500.4100, L501.5200 #### [facility] [address] [place], [address] CO2 [Moles/Vol] 24.4 mmol/L Normal 21.0-32.0 [facility] Comment on above: Order Comment: Order Date: 06/12/25 Order Info: 0786-1 - CMP Order Info: [id number] - LIPID Order Info: [id number] - MG Order Info: [id number] - TSH Order Info: 3023-7 - T4F Performed By: #### L 501.9520, L100.0100, L506.0400, L500.4050, L501.9985, L500.4100, L501.5200 #### [facility] [address] [place], [place], [id number] Creatinine [Mass/Vol] 1.00 mg/dL Normal 0.70-1.20 [facility] Comment on above: Order Comment: Order Date: 06/12/25 Order Info: 0786-1 - CMP Order Info: [id number] - LIPID Order Info: [id number] - MG Order Info: 6-3 - TSH Order Info: 3023-7 - T4F Performed By: #### L 501.9520, L100.0100, L506.0400, L500.4050, L501.9985, L500.4100, L501.5200 #### [facility] [address] [place], [place], [id number] GAP 12 Normal 5-15 [facility] Comment on above: Order Comment: Order Date: 06/12/25 Order Info: 0786-1 - CMP Order Info: [id number] - LIPID Order Info: [id number] - MG Order Info: 6-3 - TSH Order Info: 302-7 - T4F Performed By: #### L 501.9520, L100.0100, L506.0400, L500.4050, L501.9985, L500.4100, L501.5200 #### [facility] [address] [place], [place], [id number] GFR/1.73 sq M.predicted among non-blacks MDRD (S/P/Bld) [Vol rate/Area] 82 mL/min/{1.73_m2} Normal >60 [facility] Comment on above: Order Comment: Order Date: 06/12/25 Order Info: 0786-1 - CMP Order Info: [id number] - LIPID Order Info: [id number] - MG Order Info: 3016-3 - TSH Order Info: 3023-7 - T4F Result Comment: mL/m in/1.73m2 CKD-EPI Creatinine Equation (2020) Performed By: #### L 501.9520, L100.0100, L506.0400, L500.4050, L501.9985, L500.4100, L501.5200 #### [facility] [address] [place], [address] Globulin (S) [Mass/Vol] 2.7 g/dL Normal 2.2-4.2 [facility] Comment on above: Order Comment: Order Date: 06/12/25 Order Info: 0786-1 - CMP Order Info: [id number] - LIPID Order Info: [id number] - MG Order Info: 3 - TSH Order Info: 7 - T4F Performed By: #### L 501.9520, L100.0100, L506.0400, L500.4050, L501.9985, L500.4100, L501.5200 #### [facility] [address] [place], [address] Glucose [Mass/Vol] 81 mg/dL Normal 70-99 [facility] Comment on above: Order Comment: Order Date: 06/12/25 Order Info: 0786-1 - CMP Order Info: [id number] - LIPID Order Info: [id number] - MG Order Info: 3015-3 - TSH Order Info: 3023-7 - T4F Performed By: #### L 501.9520, L100.0100, L506.0400, L500.4050, L501.9985, L500.4100, L501.5200 #### [facility] [address] [place], [address] Potassium [Moles/Vol] 4.1 mmol/L Normal 3.3-5.1 [facility] Comment on above: Order Comment: Order Date: 06/12/25 Order Info: 0786-1 - CMP Order Info: [id number] - LIPID Order Info: [id number] - MG Order Info: 3015-3 - TSH Order Info: 3024-7 - T4F Performed By: #### L 501.9520, L100.0100, L506.0400, L500.4050, L501.9985, L500.4100, L501.5200 #### [facility] [address] [place], [address] Sodium [Moles/Vol] 141 mmol/L Normal 133-145 [facility] Comment on above: Order Comment: Order Date: 06/12/25 Order Info: 0786-1 - CMP Order Info: [id number] - LIPID Order Info: [id number] - MG Order Info: 3 - TSH Order Info: [id number] - T4F Performed By: #### L 501.9520, L100.0100, L506.0400, L500.4050, L501.9985, L500.4100, L501.5200 #### [facility] [address] [place], [address] T PROT 7.1 g/dL Normal 5.9-8.4 [facility] Comment on above: Order Comment: Order Date: 06/12/25 Order Info: 0786-1 - CMP Order Info: [id number] - LIPID Order Info: [id number] - MG Order Info: 3 - TSH Order Info: 3024-7 - T4F Performed By: #### L 501.9520, L100.0100, L506.0400, L500.4050, L501.9985, L500.4100, L501.5200 #### [facility] [address] [place], [address] Urea nitrogen [Mass/Vol] 10 mg/dL Normal 4-19 [facility] Comment on above: Order Comment: Order Date: 06/12/25 Order Info: 0786-1 - CMP Order Info: [id number] - LIPID Order Info: [id number] - MG Order Info: [id number] - TSH Order Info: [id number] - T4F Performed By: #### L 501.9520, L100.0100, L506.0400, L500.4050, L501.9985, L500.4100, L501.5200 #### [facility] [address] [place], [address] Eosinophil percentageOrdered By: Alexsander Casanova on 06-13-2025 Eosinophils/100 WBC (Bld) 3.8 % 0-5 [facility] Erythrocyte distribution wid th ratioOrdered By: Alexsander Casanova on 06-13-2025 Erythrocyte distribution width (RBC) [Ratio] 11.9 % 11.6-14.6 [facility] Erythrocyte distribution wid th standard deviationOrdered By: Alexsander Casanova on 06-13-2025 Erythrocyte distribution width (RBC) [Ratio] 41.3 fl 35.1-43.9 [facility] Glomerular filtration rate ( GFR) estimation/1.73 sq m using serum, plasma, or whole bOrdered By: Alexsander Casanova on 06-13-2025 GFR/1.73 sq M.predicted among non-blacks MDRD (S/P/Bld) [Vol rate/Area] 82 mL/min/{1.73_m2} >60 [facility] Comment on above: mL/min/1.73m2 CKD-EP I Creatinine Equation (2020) Hematocrit Auto (Bld) [Volum e fraction]Ordered By: Alexsander Casanova on 06-13-2025 Hematocrit (Bld) [Volume fraction] 41.6 % 40-54 [facility] Hemoglobin A1con 06-13-2025 HbA1c (Bld) [Mass fraction] 6.0 % High <=5.6 [facility] Comment on above: Order Comment: Order Date: 06/12/25Order Info: [id number] - A1C Result Comment: Norm al < 5.7 % Prediabetic 5.7 - 6.4 % Diabetic >or= 6.5 % Please note range changes. Performed By: #### L 501.9520, L100.0100, L506.0400, L500.4050, L501.9985, L500.4100, L501.5200 ####[facility] [address] [place], [address] Hemoglobin A1c percentageOrd ered By: Alexsander Casanova on 06-13-2025 HbA1c (Bld) [Mass fraction] 6.0 % High <5.7 [facility] Comment on above: Normal < 5.7 % Predi abetic 5.7 - 6.4 % Diabetic >or= 6.5 % Please note range changes. Hemoglobin measurementOrdere d By: Alexsander Casanova on 06-13-2025 Hemoglobin (Bld) [Mass/Vol] 14.1 g/dL 13.0-16.5 [facility] Immature granulocytes/100 WB C Auto (Bld)Ordered By: Alexsander Casanova on 06-13-2025 Immature granulocytes/100 WBC (Bld) 0.400 % 0.0-0.9 [facility] Comment on above: IG% - Immature Granu locytes (promyelocytes, myelocytes and metamyelocytes) > 1% indicates that a LEFT SHIFT is Present. Ketones Test strip Ql (U)Ord ered By: Alexsander Casanova on 06-13-2025 Ketones Ql (U) Negative Negative [facility] LDL calc ser/plasOrdered By: Alexsander Casanova on 06-13-2025 Cholesterol in LDL [Mass/Vol] 54 mg/dL [facility] Comment on above: Lcpbzibskx=540-865 m g/dL & Higher Hhgs=233 mg/dL or greaterFriedwald Equation for LDL-C Laboratory - Chemistry and C hemistry - challengeOrdered By: Alexsander Casanova on 06-13-2025 AST [Catalytic activity/Vol] 24 U/L <38 [facility] Lipid Profileon 06-13-2025 CHOL:HDL 2.51 Normal [facility] Comment on above: Order Comment: Order Date: 06/12/25Order Info: [id number] - CMPOrder Info: [id number] - LIPIDOrder Info: [id number] - MGOrder Info: [id number] - TSHOrder Info: 3024-7 - T4F Performed By: #### L 501.9520, L100.0100, L506.0400, L500.4050, L501.9985, L500.4100, L501.5200 ####[facility] [address] [place], [address] Cholesterol [Mass/Vol] 117 mg/dL Normal <=200 [facility] Comment on above: Order Comment: Order Date: 06/12/25Order Info: [id number] - CMPOrder Info: [id number] - LIPIDOrder Info: [id number] - MGOrder Info: 3 - TSHOrder Info: 3027 - T4F Result Comment: Chol esterol level, Desirable <200 mg/dL Borderline high cholesterol 200-239 mg/dL High cholesterol >=240 mg/dL Recommendations of the NCEP Adult Treatment Panel for the following risk-cutoff thresholds for the [place] population. Performed By: #### L 501.9520, L100.0100, L506.0400, L500.4050, L501.9985, L500.4100, L501.5200 ####[facility] [address] [place], [address] Cholesterol in HDL [Mass/Vol] 47 mg/dL Normal [facility] Comment on above: Order Comment: Order Date: 06/12/25Order Info: 071 - CMPOrder Info: [id number] - LIPIDOrder Info: [id number] - MGOrder Info: 3 - TSHOrder Info: 7 - T4F Result Comment: Katerina onal Cholesterol Education Program (NCEP) guidelines: <40 mg/dL: Low HDL-cholesterol (major risk factor for CHD) >= 60 mg/dL: High HDL-cholesterol (negative risk factor for CHD) HDL-cholesterol is affected by a number of factors, e.g. smoking, exercise, hormones, sex and age. Performed By: #### L 501.9520, L100.0100, L506.0400, L500.4050, L501.9985, L500.4100, L501.5200 ####[facility] [address] [place], [address] Cholesterol in LDL [Mass/Vol] 54 mg/dL Normal [facility] Comment on above: Order Comment: Order Date: 06/12/25Order Info: [id number] - CMPOrder Info: [id number] - LIPIDOrder Info: [id number] - MGOrder Info: 3 - TSHOrder Info: 302-7 - T4F Result Comment: Bord pnqryi=776-787 mg/dL Higher Ymby=407 mg/dL or greater Friedwald Equation for LDL-C Performed By: #### L 501.9520, L100.0100, L506.0400, L500.4050, L501.9985, L500.4100, L501.5200 ####[facility] [address] [place], [place], [id number]) Cholesterol in VLDL [Mass/Vol] 17 mg/dL Normal 5-40 [facility] Comment on above: Order Comment: Order Date: 06/12/25Order Info: [id number]- - CMPOrder Info: - LIPIDOrder Info: [id number] - MGOrder Info: 3 - TSHOrder Info: 7 - T4F Performed By: #### L 501.9520, L100.0100, L506.0400, L500.4050, L501.9985, L500.4100, L501.5200 ####[facility] [address] [place], [place], [address](267) Triglyceride [Mass/Vol] 83 mg/dL Normal [facility] Comment on above: Order Comment: Order Date: 06/12/25Order Info: [id number] - CMPOrder Info: [id number] - LIPIDOrder Info: [id number] - MGOrder Info: 63 - TSHOrder Info: [id number] - T4F Result Comment: The drugs N-Acetylcysteine and Metamizole may falsely depress this assay. Normal range: <150 mg/dL Borderline High: 150-199 mg/dL High: 200-499 mg/dL Very High: >500 mg/dL Performed By: #### L 501.9520, L100.0100, L506.0400, L500.4050, L501.9985, L500.4100, L501.5200 ####[facility] [address] [place], [place], [id number] MCV (mean corpuscular volume ) determinationOrdered By: Alexsander Casanova on 06-13-2025 MCV (RBC) [Entitic vol] 94.8 fL High 80-94 [facility] Magnesiumon 06-13-2025 Magnesium [Mass/Vol] 2.2 mg/dL Normal 1.5-2.2 [facility] Comment on above: Order Comment: Order Date: 06/12/25Order Info: [id number] - CMPOrder Info: [id number] - LIPIDOrder Info: [id number] - MGOrder Info: [id number] - TSHOrder Info: [id number] - T4F Performed By: #### L 501.9520, L100.0100, L506.0400, L500.4050, L501.9985, L500.4100, L501.5200 ####[facility] [address] [place], [address] Magnesium measurement (mass/ volume)Ordered By: Alexsander Casanova on 06-13-2025 Magnesium (Unsp spec) [Mass/Vol] 2.2 mg/dL 1.5-2.2 [facility] Mean corpuscular hemoglobin (MCH) determinationOrdered By: Alexsander Casanova on 06-13-2025 MCH (RBC) [Entitic mass] 32.1 pg High 27.0-32.0 [facility] Mean corpuscular hemoglobin concentration (MCHC) determinationOrdered By: Alexsander Casanova on 06-13-2025 MCHC (RBC) [Mass/Vol] 33.9 g/dL 32-36 [facility] Mean platelet volume determi nationOrdered By: Alexsander Casanova on 06-13-2025 Platelet mean volume (Bld) [Entitic vol] 12.0 fL 6.2-12.0 [facility] Microscopic analysis of urin e for red blood cells (RBC)Ordered By: Alexsander Casanova on 06-13-2025 Microscopic analysis of urine for red blood cells (RBC) 0 SEEN /hpf 0-5 [facility] Monocyte percentageOrdered B y: Alexsander Csaanova on 06-13-2025 Monocytes/100 WBC (Bld) 12.5 % High 0-10 [facility] Mucus LM Ql (Urine sed)Order ed By: Alexsander Casanova on 06-13-2025 Mucus Ql (Urine sed) 0 SEEN /hpf [facility] Neutrophil percentageOrdered By: Alexsander Casanova on 06-13-2025 Neutrophils/100 WBC (Bld) 58.2 % 47-70 [facility] Nitrite Test strip Ql (U)Ord ered By: Alexsander Casanova on 06-13-2025 Nitrite Ql (U) Negative Negative [facility] Nucleated red blood cell per centageOrdered By: Alexsander Casanova on 06-13-2025 Nucleated RBC/100 WBC (Bld) [Ratio] 0 % 0-5 [facility] Platelet countOrdered By: Silvana Casanova on 06-13-2025 Platelets (Bld) [#/Vol] 191 10*3/uL 150-450 [facility] Potassium measurement (mass/ volume)Ordered By: Alexsander Casanova on 06-13-2025 Potassium (Unsp spec) [Mass/Vol] 4.1 mmol/L 3.3-5.1 [facility] Protein Test strip Ql (U)Ord ered By: Alexsander Casanova on 06-13-2025 Protein Ql (U) Negative Negative [facility] RBC Auto (Bld) [#/Vol]Ordere d By: Alexsander Casanova on 06-13-2025 RBC (Bld) [#/Vol] 4.39 10*6/uL Low 4.6-6.2 [facility] Screening total cholesterol/ high density lipoprotein (HDL) cholesterol ratioOrdered By: Alexsander Casanova on 06-13-2025 Cholesterol.total/Choles terol in HDL [Mass ratio] 2.51 {ratio} [facility] Serum creatinine measurement (mass/volume)Ordered By: Alexsander Casanova on 06-13-2025 Creatinine [Mass/Vol] 1.00 mg/dL 0.70-1.20 [facility] Serum globulin measurementOr dered By: Alexsander Casanova on 06-13-2025 Globulin (S) [Mass/Vol] 2.7 g/dL 2.2-4.2 [facility] Serum glucose measurement (m ass/volume)Ordered By: Alexsander Casanova on 06-13-2025 Glucose [Mass/Vol] 81 mg/dL 70-99 [facility] Serum or plasma alanine ramos otransferase (ALT) measurementOrdered By: Alexsander Casanova on 06-13-2025 ALT [Catalytic activity/Vol] 31 U/L <47 [facility] Serum or plasma albumin butch urement (mass/volume)Ordered By: Alexsander Casanova on 06-13-2025 Albumin [Mass/Vol] 4.3 g/dL 3.4-4.8 [facility] Serum or plasma albumin/glob ulin mass ratioOrdered By: Alexsander Casanova on 06-13-2025 Albumin/Globulin [Mass ratio] 1.6 {ratio} 0.9-2.4 [facility] Serum or plasma alkaline milan sphatase measurementOrdered By: Alexsander Casanova on 06-13-2025 ALP [Catalytic activity/Vol] 78 U/L 40-129 [facility] Serum or plasma calcium butch urement (mass/volume)Ordered By: Alexsander Casanova on 06-13-2025 Calcium [Mass/Vol] 9.6 mg/dL 7.6-11.0 [facility] Serum or plasma cholesterol in HDL measurement (mass/volume)Ordered By: Alexsander Casanova on 06-13-2025 Cholesterol in HDL [Mass/Vol] 47 mg/dL >40 [facility] Comment on above: National Cholesterol Education Program (NCEP) guidelines:<40 mg/dL: Low HDL-cholesterol (major risk factor for CHD)>= 60 mg/dL: High HDL-cholesterol (negative risk factor for CHD)HDL-cholesterol is affected by a number of factors, e.g. smoking, exercise, hormones, sex and age. Serum or plasma cholesterol measurement (mass/volume)Ordered By: Alexsander Casanova on 06-13-2025 Cholesterol [Mass/Vol] 117 mg/dL <201 [facility] Comment on above: Cholesterol level, D esirable <200 mg/dLBorderline high cholesterol 200-239 mg/dLHigh cholesterol >=240 mg/dLRecommendations of the NCEP Adult Treatment Panel for the following risk-cutoff thresholds for the [place] population. Serum or plasma urea nitroge n measurement (mass/volume)Ordered By: Alexsander Casanova on 06-13-2025 Urea nitrogen [Mass/Vol] 10 mg/dL 4-19 [facility] Sodium levelOrdered By: Alexsander Casanova on 06-13-2025 Sodium [Moles/Vol] 141 mmol/L 133-145 [facility] Squamous epithelial cells de tection in urine sediment by light microscopyOrdered By: Alexsander Casanova on 06-13-2025 Epithelial cells.squamous LM Ql (Urine sed) 0-5 SEEN /hpf 0-5 [facility] T4 Free Directon 06-13-2025 T4 FREE DIRECT 1.20 ng/dL Normal 0.76-1.46 [facility] Comment on above: Order Comment: Order Date: 06/12/25Order Info: [id number] - CMPOrder Info: [id number] - LIPIDOrder Info: [id number] - MGOrder Info: 301-3 - TSHOrder Info: 7 - T4F Performed By: #### L 501.9520, L100.0100, L506.0400, L500.4050, L501.9985, L500.4100, L501.5200 ####[facility] [address] [place], [address] T4 freeOrdered By: Alexsander del real on 06-13-2025 Free T4 [Mass/Vol] 1.20 ng/dL 0.76-1.46 [facility] TSH DL <= 0.005 mIU/L QnOrde red By: Alexsander Casanova on 06-13-2025 TSH Qn 2.540 uIU/mL 0.300-4.200 [facility] Thyroid Stim Hormone (TSH)on 06-13-2025 TSH 2.540 uIU/mL Normal 0.300-4.200 [facility] Comment on above: Order Comment: Order Date: 06/12/25Order Info: [id number] - CMPOrder Info: [id number] - LIPIDOrder Info: [id number] - MGOrder Info: 3 - TSHOrder Info: [id number] - T4F Performed By: #### L 501.9520, L100.0100, L506.0400, L500.4050, L501.9985, L500.4100, L501.5200 ####[facility] [address] [place], [address] Total proteinOrdered By: Eric Casanova on 06-13-2025 Protein [Mass/Vol] 7.1 g/dL 5.9-8.4 [facility] Triglycerides measurementOrd ered By: Alexsander Casanova on 06-13-2025 Triglyceride [Mass/Vol] 83 mg/dL <199 [facility] Comment on above: The drugs N-Acetylcy steine and Metamizole may falsely depress this assay. Normal range: <150 mg/dLBorderline High: 150-199 mg/dLHigh: 200-499 mg/dLVery High: >500 mg/dL Urinalysis, Completeon 06-13 EPI,SQUAMOUS 0-5 SEEN Normal 0-5 [facility] Comment on above: Order Comment: Urine , Random Performed By: #### L 400.0001, L506.1001 ####[facility] [address] [place], [address] WBC 0-5 SEEN Normal 0-5 [facility] Comment on above: Order Comment: Urine , Random Performed By: #### L 400.0001, L506.1001 ####[facility] [address] [place], [address] BACTERIA 0 SEEN Normal None Seen [facility] Comment on above: Order Comment: Urine , Random Performed By: #### L 400.0001, L506.1001 ####[facility] [address] [place], [address] Mucus Ql (Urine sed) 0 SEEN Normal [facility] Comment on above: Order Comment: Urine , Random Performed By: #### L 400.0001, L506.1001 ####[facility] [address] [place], [address] RBC 0 SEEN Normal 0-5 [facility] Comment on above: Order Comment: Urine , Random Performed By: #### L 400.0001, L506.1001 ####[facility] [address] [place], [address] Urine clarityOrdered By: Eric Casanova on 06-13-2025 Clarity (U) Clear Clear [facility] Urine color determinationOrd ered By: Alexsander Casanova on 06-13-2025 Color (U) Straw Yellow [facility] Urine glucose detectionOrder ed By: Alexsander Casanova on 06-13-2025 Glucose Ql (U) Normal mg/dl Normal [facility] Urine leukocyte esterase det ection by dipstickOrdered By: Alexsander Casanova on 06-13-2025 Leukocyte esterase Test strip Ql (U) Negative Negative [facility] Urine pHOrdered By: Alexsander appiah on 06-13-2025 pH (U) 8.0 [pH] 5.0 - 8.0 [facility] Urine sediment bacteria coun t by microscopy (number/high power field)Ordered By: Alexsander Casanova on 06-13-2025 Bacteria LM.HPF (Urine sed) [#/Area] 0 /[HPF] None Seen [facility] Urine specific gravity measu rementOrdered By: Alexsander Casanova on 06-13-2025 Specific gravity (U) [Rel density] 1.010 1.002-1.030 [facility] Urine urobilinogen measureme ntOrdered By: Alexsander Casanova on 06-13-2025 Urobilinogen Ql (U) Normal mg/dl Normal [facility] Vitamin D,25 Hydroxyon 06-13 Vitamin D 25-OH 53.3 ng/mL Normal 30-100 [facility] Comment on above: Order Comment: Order Date: 06/12/25Order Info: 0786-1 - CMPOrder Info: [id number] - LIPIDOrder Info: [id number] - MGOrder Info: [id number] - TSHOrder Info: 3024-7 - T4F Result Comment: Laurita min D Status Deficiency: <20 ng/mL (50nmol/L) Insufficiency: 20-30 ng/mL (50-75 nmol/L) Sufficiency: 30-100 ng/mL (75-250 nmol/L) Toxicity: >100 ng/mL (>250 nmol/L) Performed By: #### L 400.0001, L506.1001 ####[facility] [id number] [place], [address] White blood cell (WBC) count Ordered By: Alexsander Casanova on 06-13-2025 WBC (Bld) [#/Vol] 7.6 10*3/uL 4.4-11.0 [facility] White blood cell countOrdere d By: Alexsander Casanova on 06-13-2025 White blood cell count 0-5 SEEN /hpf 0-5 [facility] Pulmonary Visit Reporton Pulmonary Visit Report [facility] [place] [address] [place] [address] OFFICE VISIT Date of Service: 05/01/25 MR#: [id number] Acct: [id number] Name: KALE SHEEHAN Rep #: [id number] : 1955 Provider: ANANDA West Age/Sex: 69/M [...] Additional Comments: This note was generated with [facility] dictation software. It may contain incorrect words, [...] M FU Chief Complaint: 3 month f/u Tire Fixer Required: No DME Vendor: Donnie Accompanied by: [...] budesonide 16 (more content not included)... Normal [facility] Pulmonary Visit Reporton Pulmonary Visit Report [facility] [address] [place] [address] OFFICE VISIT Date of Service: 01/02/25 MR#: [id number] Acct: [id number] Name: KALE SHEEHAN Rep #: [id number] : 1955 Provider: ANANDA West Age/Sex: 69/M Location[place] [facility] [place] Status: Signed Assessment and Plan Assessment and [...] time because he does not have any money. I have encouraged him to proceed with [...] he doesn't have the money to travel back and forth all the time. Follow-up in 3 months to evaluate response [...] but was able to control it with nzlr-feg-zejfueo cough medication. He is compliant with Breztri [...] M FU Chief Complaint: 3 month f/u Tire Fixer Required: No Accompanied by: Self Allergies ibuprofen Allergy (Mild, Verified 0 (more content not included)... Normal [facility] Low Dose CT Lung Screeningon 12-26-[address] Lung Screening [facility] Services [address] [place], [place] [id number] Low Dose CT Lung Screening MR#: [id number] Acct: [id number] Name: KALE SHEEHAN Rep #: [id number] : 1955 M 69 From: Choco lopez MD PCP: Dr. Alexsander Casanova MD Status: REG CLI Study: Low Dose CT Lung Screening Date of Exam: 12/26 Exam# [id number] Ordering Dr: Elissa West NP MUD TEMPERER-C PROCEDURE: LOW DOSE CT LUNG SCREENING 12/26/2024 [...] use of iterative reconstruction technique). REFERENCE LINK: [facility]ir Lung-RADS RADIATION DOSE SUMMARY: CTDlvol: 4.02 mGy [...] LDCT. Other Significant Findings: None. Reading Location: [place] [address] CC: ANANDA West; Dr. Alexsander Casanova MD Melt Superintendant: Signed Normal [facility] Post Void Residual Bladderon 09-07-2024 Post Void Residual Bladder [facility] Imaging Services [address] [place] [address] Post Void Residual Bladder MR#: [id number] Acct: [id number] Name: KALE SHEEHAN Rep #: [id number] : 1955 M 68 From: Eris Warren MD PCP: Dr. Alexsander Casanova MD Status: REG CLI Study: Post Void Residual Bladder Date of Exam: 09/07 Exam# [id number] Ordering Dr: Alexsander Casanova MD [id number] STUDY: ULTRASOUND - URINARY BLADDER REASON FOR EXAM: Male, 68 years old. bph incomplete emptying TECHNIQUE: Ultrasound evaluation of the urinary bladder was performed with real-time and static calvo-scale imaging. COMPARISON: None. FINDINGS: There is no right UVJ calculus. There is a visualized right ureteral jet. There is no left UVJ calculus. There is a visualized left ureteral jet. The distended volume of the urinary bladder [...] EST , CC: Dr. Alexsander Casanova MD Melt Superintendant: Signed Normal [facility] Hemoglobin A1con 08-31-2024 HbA1c (Bld) [Mass fraction] 5.8 % High 3.8-5.6 [facility] Comment on above: Order Comment: Order Date: 08/30/24 Order Info: [id number] - A1C Result Comment: Norm al < 5.7 % Prediabetic 5.7 - 6.4 % Diabetic >or= 6.5 % Please note range changes. Performed By: #### L 506.1000, L506.0400, L501.9985, L100.0100, L500.4050, L500.4100 #### [facility] [address] [place], [place], [address] Vitamin D,25 Hydroxyon 08-31 Vitamin D 25-OH 80.8 ng/mL Normal [facility] Comment on above: Order Comment: Order Date: 08/30/24 Order Info: [id number] - VITD25 Result Comment: Laurita min D 25(OH) Status Range Deficiency <20 ng/mL (50nmol/L) Insufficiency 20 - 30 ng/mL (50 - 75 nmol/L) Sufficiency 30 - 100 ng/mL (75 - 250 nmol/L) Toxicity >100 ng/mL (>250 nmol/L) Performed By: #### L 506.1000, L506.0400, L501.9985, L100.0100, L500.4050, L500.4100 #### [facility] [address] [place], [place], [address] 81-LX-Biahrgg DOrdered By: Yvrose Casanova on 08-30-2024 Vitamin D 25-Hydroxy 80.8 ng/mL [facility] Comment on above: Vitamin D 25(OH) Sta tus Range Deficiency <20 ng/mL (50nmol/L) Insufficiency 20 - 30 ng/mL (50 - 75 nmol/L) Sufficiency 30 - 100 ng/mL (75 - 250 nmol/L) Toxicity >100 ng/mL (>250 nmol/L) Absolute neutrophil countOrd ered By: Alexsander Casanova on 08-30-2024 Neutrophils (Bld) [#/Vol] 5.5 10*3/uL 2.0-7.7 [facility] Albumin to globulin ratioOrd ered By: Alexsander Casanova on 08-30-2024 Albumin/Globulin [Mass ratio] 1.3 {ratio} 0.9-2.4 [facility] Basophil percentageOrdered B y: Alexsander Casanova on 08-30-2024 Basophils/100 WBC (Bld) 0.5 % 0-1 [facility] Bilirubin Test strip Ql (U)O rdered By: Alexsander Casanova on 08-30-2024 Bilirubin Ql (U) Negative Negative [facility] Bilirubin, totalOrdered By: Alexsander Casanova on 08-30-2024 Bilirubin [Mass/Vol] 0.50 mg/dL 0.20-1.00 [facility] Comment on above: For patients on eltr ombopag therapy, use of Dimension [place] TBIL is not recommended. Blood urea nitrogen (BUN)/cr eatinine ratioOrdered By: Alexsander Casanova on 08-30-2024 Urea nitrogen/Creatinine [Mass ratio] 17.2 mg/mg 10-20 [facility] CBC W/Diff, Automatedon Absolute Lymph 1.75 X10 3/uL Normal 0.83-4.51 [facility] Comment on above: Order Comment: Order Date: 08/30/24 Order Info: 0184-1 - CBCD Performed By: #### L 506.1000, L506.0400, L501.9985, L100.0100, L500.4050, L500.4100 #### [facility] [address] [place], [place], [address] Absolute Neut 5.5 X10 3/uL Normal 2.0-7.7 [facility] Comment on above: Order Comment: Order Date: 08/30/24 Order Info: 0184-1 - CBCD Performed By: #### L 506.1000, L506.0400, L501.9985, L100.0100, L500.4050, L500.4100 #### [facility] [address] [place], [address] Basophils/100 WBC (Bld) 0.5 % Normal 0-1 [facility] Comment on above: Order Comment: Order Date: 08/30/24 Order Info: 0184-1 - CBCD Performed By: #### L 506.1000, L506.0400, L501.9985, L100.0100, L500.4050, L500.4100 #### [facility] [address] [place], [address] Eosinophils/100 WBC (Bld) 1.0 % Normal 0-5 [facility] Comment on above: Order Comment: Order Date: 08/30/24 Order Info: 0184-1 - CBCD Performed By: #### L 506.1000, L506.0400, L501.9985, L100.0100, L500.4050, L500.4100 #### [facility] [address] [place], [address] Erythrocyte distribution width (RBC) [Ratio] 12.0 % Normal 11.6-14.6 [facility] Comment on above: Order Comment: Order Date: 08/30/24 Order Info: 0184- - CBCD Performed By: #### L 506.1000, L506.0400, L501.9985, L100.0100, L500.4050, L500.4100 #### [facility] [address] [place], [address] Hematocrit (Bld) [Volume fraction] 45.5 % Normal 40-54 [facility] Comment on above: Order Comment: Order Date: 08/30/24 Order Info: 0184- - CBCD Performed By: #### L 506.1000, L506.0400, L501.9985, L100.0100, L500.4050, L500.4100 #### [facility] [address] [place], [address] Hemoglobin (Bld) [Mass/Vol] 15.4 g/dL Normal 13.0-16.5 [facility] Comment on above: Order Comment: Order Date: 08/30/24 Order Info: 0184-1 - CBCD Performed By: #### L 506.1000, L506.0400, L501.9985, L100.0100, L500.4050, L500.4100 #### [facility] [address] [place], [address] IG% 0.700 Normal 0.0-0.9 [facility] Comment on above: Order Comment: Order Date: 08/30/24 Order Info: 0184-1 - CBCD Result Comment: IG% - Immature Granulocytes (promyelocytes, myelocytes and metamyelocytes) > 1% indicates that a LEFT SHIFT is Present. Performed By: #### L 506.1000, L506.0400, L501.9985, L100.0100, L500.4050, L500.4100 #### [facility] [address] [place], [address] Lymphocytes/100 WBC (Bld) 21.1 % Normal 19-41 [facility] Comment on above: Order Comment: Order Date: 08/30/24 Order Info: 0184- - CBCD Performed By: #### L 506.1000, L506.0400, L501.9985, L100.0100, L500.4050, L500.4100 #### [facility] [address] [place], [address] MCH (RBC) [Entitic mass] 32.4 pg High 27.0-32.0 [facility] Comment on above: Order Comment: Order Date: 08/30/24 Order Info: 0184- - CBCD Performed By: #### L 506.1000, L506.0400, L501.9985, L100.0100, L500.4050, L500.4100 #### [facility] [address] [place], [address] MCHC (RBC) [Mass/Vol] 33.8 g/dL Normal 32-36 [facility] Comment on above: Order Comment: Order Date: 08/30/24 Order Info: 0184- - CBCD Performed By: #### L 506.1000, L506.0400, L501.9985, L100.0100, L500.4050, L500.4100 #### [facility] [address] [place], [address] MCV (RBC) [Entitic vol] 95.8 fL High 80-94 [facility] Comment on above: Order Comment: Order Date: 08/30/24 Order Info: 0184-1 - CBCD Performed By: #### L 506.1000, L506.0400, L501.9985, L100.0100, L500.4050, L500.4100 #### [facility] [address] [place], [address] Monocytes/100 WBC (Bld) 10.7 % High 0-10 [facility] Comment on above: Order Comment: Order Date: 08/30/24 Order Info: 0184- - CBCD Performed By: #### L 506.1000, L506.0400, L501.9985, L100.0100, L500.4050, L500.4100 #### [facility] [address] [place], [place], [id number] Neutrophils/100 WBC (Bld) 66.0 % Normal 47-70 [facility] Comment on above: Order Comment: Order Date: 08/30/24 Order Info: 0184- - CBCD Performed By: #### L 506.1000, L506.0400, L501.9985, L100.0100, L500.4050, L500.4100 #### [facility] [address] [place], [place], [id number] ([address]) Nucleated RBC (Bld) [#/Vol] 0 10*3/uL Normal 0-5 [facility] Comment on above: Order Comment: Order Date: 08/30/24 Order Info: 0184-1 - CBCD Performed By: #### L 506.1000, L506.0400, L501.9985, L100.0100, L500.4050, L500.4100 #### [facility] [address] [place], [address] Platelet mean volume (Bld) [Entitic vol] 11.6 fL Normal 6.2-12.0 [facility] Comment on above: Order Comment: Order Date: 08/30/24 Order Info: 0184-1 - CBCD Performed By: #### L 506.1000, L506.0400, L501.9985, L100.0100, L500.4050, L500.4100 #### [facility] [address] [place], [address] Platelets (Bld) [#/Vol] 215 10*3/uL Normal 150-450 [facility] Comment on above: Order Comment: Order Date: 08/30/24 Order Info: 0184-1 - CBCD Performed By: #### L 506.1000, L506.0400, L501.9985, L100.0100, L500.4050, L500.4100 #### [facility] [address] [place], [address] RBC (Bld) [#/Vol] 4.75 10*6/uL Normal 4.6-6.2 [facility] Comment on above: Order Comment: Order Date: 08/30/24 Order Info: 0184-1 - CBCD Performed By: #### L 506.1000, L506.0400, L501.9985, L100.0100, L500.4050, L500.4100 #### [facility] [address] [place], [address] RDW SD 42.3 fl Normal 35.1-43.9 [facility] Comment on above: Order Comment: Order Date: 08/30/24 Order Info: 0184-1 - CBCD Performed By: #### L 506.1000, L506.0400, L501.9985, L100.0100, L500.4050, L500.4100 #### [facility] [address] [place], [address] WBC (Bld) [#/Vol] 8.3 10*3/uL Normal 4.4-11.0 [facility] Comment on above: Order Comment: Order Date: 08/30/24 Order Info: 0184-1 - CBCD Performed By: #### L 506.1000, L506.0400, L501.9985, L100.0100, L500.4050, L500.4100 #### [facility] [address] [place], [address] Carbon dioxide measurementOr dered By: Alexsander Casanova on 08-30-2024 CO2 [Moles/Vol] 28.0 mmol/L 21.0-32.0 [facility] Chloride measurementOrdered By: Alexsander Casanova on 08-30-2024 Chloride [Moles/Vol] 102 mmol/L 98-107 [facility] Comprehensive Metabolic Prof ilon 08-30-2024 Albumin [Mass/Vol] 4.3 g/dL Normal 3.2-5.0 [facility] Comment on above: Order Comment: Order Date: 08/30/24 Order Info: 0786-1 - CMP Order Info: [id number] - LIPID Order Info: 3024-7 - T4F Performed By: #### L 506.1000, L506.0400, L501.9985, L100.0100, L500.4050, L500.4100 #### [facility] [address] [place], [address] Albumin/Globulin [Mass ratio] 1.3 {ratio} Normal 0.9-2.4 [facility] Comment on above: Order Comment: Order Date: 08/30/24 Order Info: 0786-1 - CMP Order Info: [id number] - LIPID Order Info: 3024-7 - T4F Performed By: #### L 506.1000, L506.0400, L501.9985, L100.0100, L500.4050, L500.4100 #### [facility] [address] [place], [address] ALK P 66 U/L Normal 45-117 [facility] Comment on above: Order Comment: Order Date: 08/30/24 Order Info: 785- - CMP Order Info: - LIPID Order Info: 3024-03 - T4F Performed By: #### L 506.1000, L506.0400, L501.9985, L100.0100, L500.4050, L500.4100 #### [facility] [address] [place], [address] ALT [Catalytic activity/Vol] 30 U/L Normal 16-61 [facility] Comment on above: Order Comment: Order Date: 08/30/24 Order Info: 785-09 - CMP Order Info: - LIPID Order Info: 3024-03 - T4F Performed By: #### L 506.1000, L506.0400, L501.9985, L100.0100, L500.4050, L500.4100 #### [facility] [address] [place], [place], [id number] AST [Catalytic activity/Vol] 19 U/L Normal 15-37 [facility] Comment on above: Order Comment: Order Date: 08/30/24 Order Info: 785-09 - CMP Order Info: - LIPID Order Info: 3024-03 - T4F Performed By: #### L 506.1000, L506.0400, L501.9985, L100.0100, L500.4050, L500.4100 #### [facility] [address] [place], [address] Bilirubin [Mass/Vol] 0.50 mg/dL Normal 0.20-1.00 [facility] Comment on above: Order Comment: Order Date: 08/30/24 Order Info: 785-1 - CMP Order Info: - LIPID Order Info: 3024-03 - T4F Result Comment: For patients on eltrombopag therapy, use of Dimension [place] TBIL is not recommended. Performed By: #### L 506.1000, L506.0400, L501.9985, L100.0100, L500.4050, L500.4100 #### [facility] [address] [place], [address] BUN/CRE 17.2 RATIO Normal 10-20 [facility] Comment on above: Order Comment: Order Date: 08/30/24 Order Info: 86-1 - CMP Order Info: [id number] - LIPID Order Info: 302-7 - T4F Performed By: #### L 506.1000, L506.0400, L501.9985, L100.0100, L500.4050, L500.4100 #### [facility] [address] [place], [address] CA,Total 9.4 mg/dL Normal 8.5-10.1 [facility] Comment on above: Order Comment: Order Date: 08/30/24 Order Info: 785-1 - CMP Order Info: [id number] - LIPID Order Info: 3027 - T4F Performed By: #### L 506.1000, L506.0400, L501.9985, L100.0100, L500.4050, L500.4100 #### [facility] [address] [place], [address] Chloride [Moles/Vol] 102 mmol/L Normal 98-107 [facility] Comment on above: Order Comment: Order Date: 08/30/24 Order Info: 0786-1 - CMP Order Info: [id number] - LIPID Order Info: 3024-7 - T4F Performed By: #### L 506.1000, L506.0400, L501.9985, L100.0100, L500.4050, L500.4100 #### [facility] [address] [place], [address] CO2 [Moles/Vol] 28.0 mmol/L Normal 21.0-32.0 [facility] Comment on above: Order Comment: Order Date: 08/30/24 Order Info: 0786-1 - CMP Order Info: [id number] - LIPID Order Info: 3024-7 - T4F Performed By: #### L 506.1000, L506.0400, L501.9985, L100.0100, L500.4050, L500.4100 #### [facility] [address] [place], [place], [address] Creatinine [Mass/Vol] 1.22 mg/dL Normal 0.70-1.30 [facility] Comment on above: Order Comment: Order Date: 08/30/24 Order Info: 07- - CMP Order Info: [id number] - LIPID Order Info: 3024-03 - T4F Result Comment: The validity of the calculated GFR GFRAA in patients over 70 years has not been determined. Clinical correlation is essential. Performed By: #### L 506.1000, L506.0400, L501.9985, L100.0100, L500.4050, L500.4100 #### [facility] [address] [place], [place], [id number] EST GFR - AA 76 mL/min Normal >60 [facility] Comment on above: Order Comment: Order Date: 08/30/24 Order Info: 07 - CMP Order Info: [id number] - LIPID Order Info: [id number] - T4F Result Comment: Afri can [place] GFR Calc Performed By: #### L 506.1000, L506.0400, L501.9985, L100.0100, L500.4050, L500.4100 #### [facility] [address] [place], [place], [address] GAP 6 Normal 5-15 [facility] Comment on above: Order Comment: Order Date: 08/30/24 Order Info: 0786- - CMP Order Info: [id number] - LIPID Order Info: [id number] - T4F Performed By: #### L 506.1000, L506.0400, L501.9985, L100.0100, L500.4050, L500.4100 #### [facility] [address] [place], [address] GFR/1.73 sq M.predicted among non-blacks MDRD (S/P/Bld) [Vol rate/Area] 63 mL/min/{1.73_m2} Normal >60 [facility] Comment on above: Order Comment: Order Date: 08/30/24 Order Info: 0786-1 - CMP Order Info: [id number] - LIPID Order Info: 3024-03 - T4F Result Comment: Non- GFR Calc Performed By: #### L 506.1000, L506.0400, L501.9985, L100.0100, L500.4050, L500.4100 #### [facility] [address] [place], [address] Globulin (S) [Mass/Vol] 3.3 g/dL Normal 2.2-4.2 [facility] Comment on above: Order Comment: Order Date: 08/30/24 Order Info: 0786- - CMP Order Info: [id number] - LIPID Order Info: [id number] - T4F Performed By: #### L 506.1000, L506.0400, L501.9985, L100.0100, L500.4050, L500.4100 #### [facility] [address] [place], [address] Glucose [Mass/Vol] 82 mg/dL Normal 74-106 [facility] Comment on above: Order Comment: Order Date: 08/30/24 Order Info: 0786- - CMP Order Info: [id number] - LIPID Order Info: 3027 - T4F Performed By: #### L 506.1000, L506.0400, L501.9985, L100.0100, L500.4050, L500.4100 #### [facility] [address] [place], [address] Potassium [Moles/Vol] 4.0 mmol/L Normal 3.5-5.1 [facility] Comment on above: Order Comment: Order Date: 08/30/24 Order Info: 0786-1 - CMP Order Info: [id number] - LIPID Order Info: 3024-03 - T4F Performed By: #### L 506.1000, L506.0400, L501.9985, L100.0100, L500.4050, L500.4100 #### [facility] [address] [place], [address] Sodium [Moles/Vol] 136 mmol/L Normal 136-145 [facility] Comment on above: Order Comment: Order Date: 08/30/24 Order Info: 0786-1 - CMP Order Info: [id number] - LIPID Order Info: 3024-03 - T4F Performed By: #### L 506.1000, L506.0400, L501.9985, L100.0100, L500.4050, L500.4100 #### [facility] [address] [place], [place], [id number] T PROT 7.6 g/dL Normal 6.4-8.2 [facility] Comment on above: Order Comment: Order Date: 08/30/24 Order Info: 0786 - CMP Order Info: [id number] - LIPID Order Info: 3024-03 - T4F Performed By: #### L 506.1000, L506.0400, L501.9985, L100.0100, L500.4050, L500.4100 #### [facility] [address] [place], [address] Urea nitrogen [Mass/Vol] 21 mg/dL High 7-18 [facility] Comment on above: Order Comment: Order Date: 08/30/24 Order Info: 0786-1 - CMP Order Info: [id number] - LIPID Order Info: 3024-03 - T4F Performed By: #### L 506.1000, L506.0400, L501.9985, L100.0100, L500.4050, L500.4100 #### [facility] [address] [place], [address] Direct serum free thyroxine (FT4) measurementOrdered By: Alexsander Casanova on 08-30-2024 Free T4 [Mass/Vol] 0.97 ng/dL 0.76-1.46 [facility] Eosinophil percentageOrdered By: Alexsander Casanova on 08-30-2024 Eosinophils/100 WBC (Bld) 1.0 % 0-5 [facility] Epithelial cells.squamous LM Ql (Urine sed)Ordered By: Alexsander Casanova on 08-30-2024 Epithelial cells.squamous LM.HPF (Urine sed) [#/Area] 0 /[HPF] 0-5 [facility] Erythrocyte distribution wid th (RBC) [Ratio]Ordered By: Alexsander Casanova on 08-30-2024 Erythrocyte distribution width (RBC) [Entitic vol] 42.3 fL 35.1-43.9 [facility] Erythrocyte distribution wid th ratioOrdered By: Alexsander Casanova on 08-30-2024 Erythrocyte distribution width (RBC) [Ratio] 12.0 % 11.6-14.6 [facility] Estimated glomerular filtrat ion rate (GFR) AmericanOrdered By: Alexsander Casanova on 08-30-2024 Estimated GFR (MDRD) Amer 76 mL/min >60 [facility] Comment on above: GFR Calc Glomerular filtration rate ( GFR) estimationOrdered By: Alexsander Casanova on 08-30-2024 Estimated GFR (MDRD) Non-Af Amer 63 mL/min >60 [facility] Comment on above: Non- GFR Calc Glucose Ql (U)Ordered By: Silvana Casanova on 08-30-2024 Urine Glucose (UA) Normal mg/dl Normal [facility] Glucose measurementOrdered B y: Alexsander Casanova on 08-30-2024 Glucose [Mass/Vol] 82 mg/dL 74-106 [facility] Hematocrit Auto (Bld) [Volum e fraction]Ordered By: Alexsander Casanova on 08-30-2024 Hematocrit (Bld) [Volume fraction] 45.5 % 40-54 [facility] Hemoglobin A1c percentageOrd ered By: Alexsander Casanova on 08-30-2024 HbA1c (Bld) [Mass fraction] 5.8 % High 3.8-5.6 [facility] Comment on above: Normal < 5.7 % Predi abetic 5.7 - 6.4 % Diabetic >or= 6.5 % Please note range changes. Hemoglobin measurementOrdere d By: Alexsander Casanova on 08-30-2024 Hemoglobin (Bld) [Mass/Vol] 15.4 g/dL 13.0-16.5 [facility] High density lipoprotein (HD L) measurementOrdered By: Alexsander Casanova on 08-30-2024 Cholesterol in HDL [Mass/Vol] 48 mg/dL >40 [facility] Comment on above: The drugs N-Acetylcy steine and Metamizole may falsely depress this assay. Reference Range HDL <40 mg/dL Low HDL Cholesterol HDL >or= 60 mg/dL High HDL Cholesterol Immature granulocytes/100 WB C Auto (Bld)Ordered By: Alexsander Casanova on 08-30-2024 Immature granulocytes/100 WBC (Bld) 0.700 % 0.0-0.9 [facility] Comment on above: IG% - Immature Granu locytes (promyelocytes, myelocytes and metamyelocytes) > 1% indicates that a LEFT SHIFT is Present. Ketones Test strip Ql (U)Ord ered By: Alexsander Casanova on 08-30-2024 Ketones Ql (U) Negative Negative [facility] - Chemistry and C hemistry - challengeOrdered By: Alexsander Casanova on 08-30-2024 AST [Catalytic activity/Vol] 19 U/L 15-37 [facility] Lipid Profileon 08-30-2024 Cholesterol [Mass/Vol] 131 mg/dL Normal 200 [facility] Comment on above: Order Comment: Order Date: 08/30/24 Order Info: [id number] - CMP Order Info: [id number] - LIPID Order Info: [id number] - T4F Result Comment: <200 mg/dL Desirable 200-240 mg/dL Borderline >240 mg/dL High Risk Performed By: #### L 506.1000, L506.0400, L501.9985, L100.0100, L500.4050, L500.4100 #### [facility] [address] [place], [address] Cholesterol in HDL [Mass/Vol] 48 mg/dL Normal [facility] Comment on above: Order Comment: Order Date: 08/30/24 Order Info: [id number] - CMP Order Info: [id number] - LIPID Order Info: [id number] - T4F Result Comment: The drugs N-Acetylcysteine and Metamizole may falsely depress this assay. Reference Range HDL <40 mg/dL Low HDL Cholesterol HDL >or= 60 mg/dL High HDL Cholesterol Performed By: #### L 506.1000, L506.0400, L501.9985, L100.0100, L500.4050, L500.4100 #### [facility] [address] [place], [address] Cholesterol in LDL [Mass/Vol] 55 mg/dL Normal 0-130 [facility] Comment on above: Order Comment: Order Date: 08/30/24 Order Info: [id number] - CMP Order Info: [id number] - LIPID Order Info: [id number] - T4F Performed By: #### L 506.1000, L506.0400, L501.9985, L100.0100, L500.4050, L500.4100 #### [facility] [address] [place], [address] Cholesterol in VLDL [Mass/Vol] 28 mg/dL Normal 5-40 [facility] Comment on above: Order Comment: Order Date: 08/30/24 Order Info: [id number] - CMP Order Info: [id number] - LIPID Order Info: [id number] - T4F Performed By: #### L 506.1000, L506.0400, L501.9985, L100.0100, L500.4050, L500.4100 #### [facility] [address] [place], [address] Triglyceride [Mass/Vol] 142 mg/dL Normal [facility] Comment on above: Order Comment: Order Date: 08/30/24 Order Info: [id number] - CMP Order Info: [id number] - LIPID Order Info: [id number] - T4F Result Comment: The drugs N-Acetylcysteine and Metamizole may falsely depress this assay. Serum Triglycerides Reference Interval Normal <150 mg/dL Borderline high 150 - 199 mg/dL High 200 - 499 mg/dL Very High > or = 500 mg/dL Performed By: #### L 506.1000, L506.0400, L501.9985, L100.0100, L500.4050, L500.4100 #### [facility] [place], [address] Low density lipoprotein (LDL ) cholesterol measurementOrdered By: Alexsander Casanova on 08-30-2024 Cholesterol in LDL [Mass/Vol] 55 mg/dL 0-130 [facility] Lymphocytes Auto (Unsp spec) [#/Vol]Ordered By: Alexsander Casanova on 08-30-2024 Lymphocytes (Bld) [#/Vol] 1.75 10*3/uL 0.83-4.51 [facility] Lymphocytes/100 WBC Auto (Un sp spec)Ordered By: Alexsander Casanova on 08-30-2024 Lymphocytes/100 WBC (Bld) 21.1 % 19-41 [facility] MCV (mean corpuscular volume ) determinationOrdered By: Alexsander Casanova on 08-30-2024 MCV (RBC) [Entitic vol] 95.8 fL High 80-94 [facility] Mean corpuscular hemoglobin (MCH) determinationOrdered By: Alexsander Casanova on 08-30-2024 MCH (RBC) [Entitic mass] 32.4 pg High 27.0-32.0 [facility] Mean corpuscular hemoglobin concentration (MCHC) determinationOrdered By: Alexsander Casanova on 08-30-2024 MCHC (RBC) [Mass/Vol] 33.8 g/dL 32-36 [facility] Mean platelet volume determi nationOrdered By: Alexsander Casanova on 08-30-2024 Platelet mean volume (Bld) [Entitic vol] 11.6 fL 6.2-12.0 [facility] Microscopic analysis of urin e for red blood cells (RBC)Ordered By: Alexsander Casanova on 08-30-2024 Urine RBC 0 SEEN /hpf 0-5 [facility] Monocyte percentageOrdered B y: Alexsander Casanova on 08-30-2024 Monocytes/100 WBC (Bld) 10.7 % High 0-10 [facility] Mucus LM Ql (Urine sed)Order ed By: Alexsander Casanova on 08-30-2024 Mucus Ql (Urine sed) 0 SEEN /hpf [facility] Neutrophil percentageOrdered By: Alexsander Casanova on 08-30-2024 Neutrophils/100 WBC (Bld) 66.0 % 47-70 [facility] Nitrite Test strip Ql (U)Ord ered By: Alexsander Casanova on 08-30-2024 Nitrite Ql (U) Negative Negative [facility] Nucleated red blood cell per centageOrdered By: Alexsander Casanova on 08-30-2024 Nucleated RBC/100 WBC (Bld) [Ratio] 0 % 0-5 [facility] Platelet countOrdered By: Silvana Casanova on 08-30-2024 Platelets (Bld) [#/Vol] 215 10*3/uL 150-450 [facility] Potassium measurementOrdered By: Alexsander Casanova on 08-30-2024 Potassium [Moles/Vol] 4.0 mmol/L 3.5-5.1 [facility] Protein Test strip Ql (U)Ord ered By: Alexsander Casanova on 08-30-2024 Protein Ql (U) Negative Negative [facility] RBC Auto (Bld) [#/Vol]Ordere d By: Alexsander Casanova on 08-30-2024 RBC (Bld) [#/Vol] 4.75 10*6/uL 4.6-6.2 [facility] Serum anion gap measurementO rdered By: Alexsander Casanova on 08-30-2024 Anion gap [Moles/Vol] 6 mmol/L 5-15 [facility] Serum globulin measurementOr dered By: Alexsander Casanova on 08-30-2024 Globulin (S) [Mass/Vol] 3.3 g/dL 2.2-4.2 [facility] Serum or plasma alanine ramos otransferase (ALT) measurementOrdered By: Alexsander Casanova on 08-30-2024 ALT [Catalytic activity/Vol] 30 U/L 16-61 [facility] Serum or plasma albumin butch urement (mass/volume)Ordered By: Alexsander Casanova on 08-30-2024 Albumin [Mass/Vol] 4.3 g/dL 3.2-5.0 [facility] Serum or plasma alkaline milan sphatase measurementOrdered By: Alexsander Casanova on 08-30-2024 ALP [Catalytic activity/Vol] 66 U/L 45-117 [facility] Serum or plasma calcium butch urement (mass/volume)Ordered By: Alexsander Casanova on 08-30-2024 Calcium [Mass/Vol] 9.4 mg/dL 8.5-10.1 [facility] Serum or plasma cholesterol measurement (mass/volume)Ordered By: Alexsander Casanova on 08-30-2024 Cholesterol [Mass/Vol] 131 mg/dL <200 [facility] Comment on above: <200 mg/dL Desirable 200-240 mg/dL Borderline >240 mg/dL High Risk Serum or plasma creatinine m easurement (mass/volume)Ordered By: Alexsander Casanova on 08-30-2024 Creatinine [Mass/Vol] 1.22 mg/dL 0.70-1.30 [facility] Comment on above: The validity of the calculated GFR & GFRAA in patients over 70 years has not been determined. Clinical correlation is essential. Serum or plasma urea nitroge n measurement (mass/volume)Ordered By: Alexsander Casanova on 08-30-2024 Urea nitrogen [Mass/Vol] 21 mg/dL High 7-18 [facility] Sodium levelOrdered By: Alexsander Casanova on 08-30-2024 Sodium [Moles/Vol] 136 mmol/L 136-145 [facility] T4 Free Directon 08-30-2024 T4 FREE DIRECT 0.97 ng/dL Normal 0.76-1.46 [facility] Comment on above: Order Comment: Order Date: 08/30/24 Order Info: [id number] - CMP Order Info: [id number] - LIPID Order Info: [id number] - T4F Performed By: #### L 506.1000, L506.0400, L501.9985, L100.0100, L500.4050, L500.4100 #### [facility] [place], [address] Total proteinOrdered By: Eric Casanova on 08-30-2024 Protein [Mass/Vol] 7.6 g/dL 6.4-8.2 [facility] Triglycerides measurementOrd ered By: Alexsander Casanova on 08-30-2024 Triglyceride [Mass/Vol] 142 mg/dL <199 [facility] Comment on above: The drugs N-Acetylcy steine and Metamizole may falsely depress this assay.Serum Triglycerides Reference Interval Normal <150 mg/dL Borderline high 150 - 199 mg/dL High 200 - 499 mg/dL Very High > or = 500 mg/dL Urinalysis, Completeon 08-30 BACTERIA 0 SEEN Normal None Seen [facility] Comment on above: Order Comment: Urine , Random Performed By: #### L 400.0001 ####[facility] [address] [place], [address] EPI,SQUAMOUS 0 SEEN Normal 0-5 [facility] Comment on above: Order Comment: Urine , Random Performed By: #### L 400.0001 ####[facility] [address] [place], [address] Mucus Ql (Urine sed) 0 SEEN Normal [facility] Comment on above: Order Comment: Urine , Random Performed By: #### L 400.0001 ####[facility] [address] [place], [address] RBC 0 SEEN Normal 0-5 [facility] Comment on above: Order Comment: Urine , Random Performed By: #### L 400.0001 ####[facility] [address] [place], [address] WBC 0 SEEN Normal 0-5 [facility] Comment on above: Order Comment: Urine , Random Performed By: #### L [id number] ####[facility] [address] [place], [address] Urine blood detectionOrdered By: Alexsander Casanova on 08-30-2024 Urine Occult Blood Negative Negative [facility] Urine clarityOrdered By: Eric Casanova on 08-30-2024 Clarity (U) Clear Clear [facility] Urine color determinationOrd ered By: Alexsander Casanova on 08-30-2024 Color (U) Yellow Yellow [facility] Urine leukocyte esterase det ection by dipstickOrdered By: Alexsander Casanova on 08-30-2024 Leukocyte esterase Test strip Ql (U) Negative Negative [facility] Urine pHOrdered By: Alexsander appiah on 08-30-2024 pH (U) 6.0 [pH] 5.0 - 8.0 [facility] Urine sediment bacteria coun t by microscopy (number/high power field)Ordered By: Alexsander Casanova on 08-30-2024 Bacteria LM.HPF (Urine sed) [#/Area] 0 /[HPF] None Seen [facility] Urine specific gravity measu rementOrdered By: Alexsander Casanova on 08-30-2024 Specific gravity (U) [Rel density] 1.005 1.002-1.030 [facility] Urobilinogen Ql (U)Ordered B y: Alexsander Casanova on 08-30-2024 Urine Urobilinogen Normal mg/dl Normal [facility] Very low density lipoprotein (VLDL) cholesterol measurementOrdered By: Alexsander Casanova on 08-30-2024 VLDL Cholesterol 28 mg/dL 5-40 [facility] White blood cell (WBC) count Ordered By: Alexsander Casanova on 08-30-2024 WBC (Bld) [#/Vol] 8.3 10*3/uL 4.4-11.0 [facility] White blood cell countOrdere d By: Alexsander Casanova on 08-30-2024 Urine WBC 0 SEEN /hpf 0-5 [facility] Absolute lymphocyte countOrd ered By: Alexsander Casanova on 10-18-2023 Lymphocytes Auto (Unsp spec) [#/Vol] 1.78 10*3/uL 0.83-4.51 [facility] Automated lymphocyte count a s percentage of total leukocytesOrdered By: Alexsander Casanova on 10-18-2023 Lymphocytes/100 WBC Auto (Unsp spec) 23.2 % 19-41 [facility] Basophil percentageOrdered B y: Alexsander Casanova on 10-18-2023 Basophil percentage 0 SEEN /hpf 0-5 [facility] Basophils/100 WBC (Bld) 0.8 % 0-1 [facility] Bilirubin [Mass/Vol] 0.60 mg/dL 0.20-1.00 [facility] Comment on above: For patients on eltr ombopag therapy, use of Dimension [place] TBIL is not recommended. Chloride [Moles/Vol] 105 mmol/L 98-107 [facility] Cholesterol [Mass/Vol] 94 mg/dL <200 [facility] Comment on above: <200 mg/dL Desirable 200-240 mg/dL Borderline >240 mg/dL High Risk Eosinophils/100 WBC (Bld) 5.0 % 0-5 [facility] Glucose [Mass/Vol] 101 mg/dL 74-106 [facility] Comment on above: Fasting Glucose resu lt from 100 to 125 mg/dL suggests IMPAIRED HOMEOSTASIS per A.D.A. criteria. Hemoglobin (Bld) [Mass/Vol] 14.0 g/dL 13.0-16.5 [facility] Monocytes/100 WBC (Bld) 11.5 % 0-10 [place] Neutrophils (Bld) [#/Vol] 4.5 10*3/uL 2.0-7.7 [facility] Neutrophils/100 WBC (Bld) 59.2 % 47-70 [facility] Potassium [Moles/Vol] 4.1 mmol/L 3.5-5.1 [facility] Protein [Mass/Vol] 7.0 g/dL 6.4-8.2 [facility] Sodium [Moles/Vol] 137 mmol/L 136-145 [facility] Triglyceride [Mass/Vol] 75 mg/dL <199 [place] Comment on above: The drugs N-Acetylcy steine and Metamizole may falsely depress this assay.Serum Triglycerides Reference Interval Normal <150 mg/dL Borderline high 150 - 199 mg/dL High 200 - 499 mg/dL Very High > or = 500 mg/dL WBC (Bld) [#/Vol] 7.7 10*3/uL 4.4-11.0 [facility] Bilirubin Test strip Ql (U)O rdered By: Alexsander Casanova on 10-18-2023 Bilirubin Ql (U) Negative Negative [facility] Determination of erythrocyte mean corpuscular volume (MCV)Ordered By: Alexsander Casanova on 10-18-2023 MCV (RBC) [Entitic vol] 95.9 fL 80-94 [facility] Erythrocyte distribution wid th ratioOrdered By: Alexsander Casanova on 10-18-2023 Erythrocyte distribution width (RBC) [Ratio] 11.9 % 11.6-14.6 [facility] Erythrocyte distribution wid th standard deviationOrdered By: Alexsander Casanova on 10-18-2023 Erythrocyte distribution width (RBC) [Entitic vol] 41.8 fL 35.1-43.9 [facility] Hematocrit Auto (Bld) [Volum e fraction]Ordered By: Alexsander Casanova on 10-18-2023 Hematocrit (Bld) [Volume fraction] 42.1 % 40-54 [facility] High density lipoprotein (HD L) measurementOrdered By: Alexsander Casanova on 10-18-2023 Cholesterol in HDL (Body fld) [Mass/Vol] 46 mg/dL >40 [facility] Comment on above: The drugs N-Acetylcy steine and Metamizole may falsely depress this assay. Reference Range HDL <40 mg/dL Low HDL Cholesterol HDL >or= 60 mg/dL High HDL Cholesterol Immature granulocytes/100 WB C Auto (Bld)Ordered By: Alexsander Casanova on 10-18-2023 Immature granulocytes/100 WBC (Bld) 0.300 % 0.0-0.9 [facility] Comment on above: IG% - Immature Granu locytes (promyelocytes, myelocytes and metamyelocytes) > 1% indicates that a LEFT SHIFT is Present. Ketones Test strip Ql (U)Ord ered By: Alexsander Casanova on 10-18-2023 Ketones Ql (U) Negative Negative [facility] - Chemistry and C hemistry - challengeOrdered By: Alexsander Casanova on 10-18-2023 Albumin/Globulin [Mass ratio] 1.3 {ratio} 0.9-2.4 [facility] ALP [Catalytic activity/Vol] 82 U/L 45-117 [facility] ALT [Catalytic activity/Vol] 33 U/L 16-61 [facility] CO2 [Moles/Vol] 26.0 mmol/L 21.0-32.0 [facility] Globulin (S) [Mass/Vol] 3.1 g/dL 2.2-4.2 [facility] Magnesium [Mass/Vol] 2.4 mg/dL 1.6-2.6 [facility] Urea nitrogen/Creatinine [Mass ratio] 9.4 mg/mg 10-20 [facility] - Hematology and Cell countsOrdered By: Alexsander Casanova on 10-18-2023 MCH (RBC) [Entitic mass] 31.9 pg 27.0-32.0 [facility] MCHC (RBC) [Mass/Vol] 33.3 g/dL 32-36 [facility] Nucleated RBC/100 WBC (Bld) [Ratio] 0 % 0-5 [facility] Platelets (Bld) [#/Vol] 209 10*3/uL 150-450 [facility] Low density lipoprotein (LDL ) cholesterol measurementOrdered By: Alexsander Casanova on 10-18-2023 Cholesterol in LDL (Body fld) [Moles/Vol] 33 mg/dL 0-130 [facility] Mucus LM Ql (Urine sed)Order ed By: Alexsander Casanova on 10-18-2023 Mucus Ql (Urine sed) 0 SEEN /hpf [facility] Nitrite Test strip Ql (U)Ord ered By: Alexsander Casanova on 10-18-2023 Nitrite Ql (U) Negative Negative [facility] No Panel InformationOrdered By: Alexsander Casanova on 10-18-2023 Urine RBC 0 SEEN /hpf 0-5 [facility] Estimated GFR (MDRD) Amer 90 mL/min >60 [facility] Comment on above: GFR Calc Estimated GFR (MDRD) Non-Af Amer 74 mL/min >60 [facility] Comment on above: Non- GFR Calc Vitamin D 25-Hydroxy 61.1 ng/mL [facility] Comment on above: Vitamin D 25(OH) Sta tus Range Deficiency <20 ng/mL (50nmol/L) Insufficiency 20 - 30 ng/mL (50 - 75 nmol/L) Sufficiency 30 - 100 ng/mL (75 - 250 nmol/L) Toxicity >100 ng/mL (>250 nmol/L) Platelet mean volume Malick-Ec ker (Bld) [Entitic vol]Ordered By: Alexsander Casanova on 10-18-2023 Platelet mean volume (Bld) [Entitic vol] 11.8 fL 6.2-12.0 [facility] Protein Test strip Ql (U)Ord ered By: Alexsander Casanova on 10-18-2023 Protein Ql (U) Negative Negative [facility] RBC Auto (Bld) [#/Vol]Ordere d By: Alexsander Casanova on 10-18-2023 RBC (Bld) [#/Vol] 4.39 10*6/uL 4.6-6.2 [facility] Serum or plasma calcium butch urement (mass/volume)Ordered By: Alexsander Casanova on 10-18-2023 Calcium [Mass/Vol] 9.4 mg/dL 8.5-10.1 [facility] Serum or plasma creatinine m easurement (mass/volume)Ordered By: Alexsander Casanova on 10-18-2023 Creatinine [Mass/Vol] 1.06 mg/dL 0.70-1.30 [facility] Comment on above: The validity of the calculated GFR & GFRAA in patients over 70 years has not been determined. Clinical correlation is essential. Serum or plasma thyroid stim ulating hormone (TSH) measurement (units/volume)Ordered By: Alexsander Casanova on 10-18-2023 TSH Qn 2.14 uIU/mL 0.358-3.74 [facility] Serum or plasma urea nitroge n measurement (mass/volume)Ordered By: Alexsander Casanova on 10-18-2023 Urea nitrogen [Mass/Vol] 10 mg/dL 7-18 [facility] Squamous epithelial cells de tection in urine sediment by light microscopyOrdered By: Alexsander Casanova on 10-18-2023 Epithelial cells.squamous LM Ql (Urine sed) 0 SEEN /hpf 0-5 [facility] Thin prep Papanicolaou smear with manual screeningOrdered By: Alexsander Casanova on 10-18-2023 Thin prep Papanicolaou smear with manual screening 3.9 g/dL 3.2-5.0 [facility] Thin prep Papanicolaou smear with manual screening 25 U/L 15-37 [facility] Thin prep Papanicolaou smear with manual screening 6 5-15 [facility] Thin prep Papanicolaou smear with manual screening 1.04 ng/dL 0.76-1.46 [facility] Urine blood detectionOrdered By: Alexsander Casanova on 10-18-2023 RBC Ql (U) Negative Negative [facility] Urine clarityOrdered By: Eric Casanova on 10-18-2023 Clarity (U) Clear Clear [facility] Urine color determinationOrd ered By: Alexsander Casanova on 10-18-2023 Color (U) Yellow Yellow [facility] Urine glucose detectionOrder ed By: Alexsander Casanova on 10-18-2023 Glucose Ql (U) Normal mg/dl Normal [facility] Urine leukocyte esterase det ection by dipstickOrdered By: Alexsander Casanova on 10-18-2023 Leukocyte esterase Test strip Ql (U) Negative Negative [facility] Urine pHOrdered By: Alexsander appiah on 10-18-2023 pH (U) 7.0 [pH] 5.0 - 8.0 [facility] Urine sediment bacteria coun t by microscopy (number/high power field)Ordered By: Alexsander Casanova on 10-18-2023 Bacteria LM.HPF (Urine sed) [#/Area] 0 /[HPF] None Seen [facility] Urine specific gravity measu rementOrdered By: Alexsander Casanova on 10-18-2023 Specific gravity (U) [Rel density] 1.005 1.002-1.030 [facility] Urine urobilinogen measureme ntOrdered By: Alexsander Casanova on 10-18-2023 Urobilinogen Ql (U) Normal mg/dl Normal [facility] Very low density lipoprotein (VLDL) cholesterol measurementOrdered By: Alexsander Casanova on 10-18-2023 Cholesterol in VLDL Calc [Moles/Vol] 15 mg/dL 5-40 [facility] Whole blood hemoglobin A1c/t otal hemoglobin ratio (mass fraction)Ordered By: Alexsander Casanova on 10-18-2023 HbA1c (Bld) [Mass fraction] 5.6 % 3.8-5.6 [facility] Comment on above: Normal < 5.7 % Predi abetic 5.7 - 6.4 % Diabetic >or= 6.5 % Please note range changes. Absolute lymphocyte countOrd ered By: Alexsander Casanova on 06-22-2023 Lymphocytes Auto (Unsp spec) [#/Vol] 1.83 10*3/uL 0.83-4.51 [facility] Basophil percentageOrdered B y: Alexsander Otoolerandell on 06-22-2023 Basophil percentage 0 SEEN /hpf 0-5 [facility] Basophils/100 WBC (Bld) 0.5 % 0-1 [facility] Bilirubin [Mass/Vol] 0.40 mg/dL 0.20-1.00 [facility] Comment on above: For patients on eltr ombopag therapy, use of Dimension [place] TBIL is not recommended. Chloride [Moles/Vol] 107 mmol/L 98-107 [facility] Cholesterol [Mass/Vol] 92 mg/dL <200 [facility] Comment on above: <200 mg/dL Desirable 200-240 mg/dL Borderline >240 mg/dL High Risk Eosinophils/100 WBC (Bld) 1.9 % 0-5 [facility] Glucose [Mass/Vol] 114 mg/dL 74-106 [facility] Comment on above: Fasting Glucose resu lt from 100 to 125 mg/dL suggests IMPAIRED HOMEOSTASIS per A.D.A. criteria. Neutrophils (Bld) [#/Vol] 5.1 10*3/uL 2.0-7.7 [facility] Neutrophils/100 WBC (Bld) 63.8 % 47-70 [facility] Potassium [Moles/Vol] 3.9 mmol/L 3.5-5.1 [facility] Protein [Mass/Vol] 7.2 g/dL 6.4-8.2 [facility] Sodium [Moles/Vol] 138 mmol/L 136-145 [facility] Triglyceride [Mass/Vol] 101 mg/dL <199 [facility] Comment on above: The drugs N-Acetylcy steine and Metamizole may falsely depress this assay.Serum Triglycerides Reference Interval Normal <150 mg/dL Borderline high 150 - 199 mg/dL High 200 - 499 mg/dL Very High > or = 500 mg/dL WBC (Bld) [#/Vol] 8.0 10*3/uL 4.4-11.0 [facility] Bilirubin Test strip Ql (U)O rdered By: Alexsander Casanova on 06-22-2023 Bilirubin Ql (U) Negative Negative [facility] Blood erythrocytes count (nu mber/volume)Ordered By: Alexsander Casanova on 06-22-2023 RBC (Bld) [#/Vol] 4.53 10*6/uL 4.6-6.2 [facility] Blood hemoglobin measurement (mass/volume)Ordered By: Alexsander Casanova on 06-22-2023 Hemoglobin (Bld) [Mass/Vol] 14.6 g/dL 13.0-16.5 [facility] Blood lymphocytes/100 leukoc ytesOrdered By: Alexsander Casanova on 06-22-2023 Lymphocytes/100 WBC (Bld) 22.9 % 19-41 [facility] Blood monocytes/100 leukocyt esOrdered By: Alexsander Casanova on 06-22-2023 Monocytes/100 WBC (Bld) 10.5 % 0-10 [facility] Blood platelet mean volumeOr dered By: Alexsander Casanova on 06-22-2023 Platelet mean volume (Bld) [Entitic vol] 11.3 fL 6.2-12.0 [facility] Determination of erythrocyte mean corpuscular volume (MCV)Ordered By: Alexsander Casanova on 06-22-2023 MCV (RBC) [Entitic vol] 97.1 fL 80-94 [facility] Hematocrit Auto (Bld) [Volum e fraction]Ordered By: Alexsander Casanova on 06-22-2023 Hematocrit (Bld) [Volume fraction] 44.0 % 40-54 [facility] Ketones Test strip Ql (U)Ord ered By: Alexsander Casanova on 06-22-2023 Ketones Ql (U) Negative Negative [facility] - Chemistry and C hemistry - challengeOrdered By: Alexsander Casanova on 06-22-2023 ALP [Catalytic activity/Vol] 80 U/L 45-117 [facility] ALT [Catalytic activity/Vol] 33 U/L 16-61 [facility] CO2 [Moles/Vol] 27.0 mmol/L 21.0-32.0 [facility] Free T4 [Mass/Vol] 0.92 ng/dL 0.76-1.46 [facility] Globulin (S) [Mass/Vol] 3.3 g/dL 2.2-4.2 [facility] Urea nitrogen/Creatinine [Mass ratio] 8.9 mg/mg 10-20 [facility] - Hematology and Cell countsOrdered By: Alexsander Casanova on 06-22-2023 Erythrocyte distribution width (RBC) [Entitic vol] 43.3 fL 35.1-43.9 [facility] Erythrocyte distribution width (RBC) [Ratio] 12.0 % 11.6-14.6 [facility] Immature granulocytes/100 WBC (Bld) 0.400 % 0.0-0.9 [facility] Comment on above: IG% - Immature Granu locytes (promyelocytes, myelocytes and metamyelocytes) > 1% indicates that a LEFT SHIFT is Present. MCH (RBC) [Entitic mass] 32.2 pg 27.0-32.0 [facility] Nucleated RBC/100 WBC (Bld) [Ratio] 0 % 0-5 [facility] MCHC Auto (RBC) [Mass/Vol]Or dered By: Alexsander Casanova on 06-22-2023 MCHC (RBC) [Mass/Vol] 33.2 g/dL 32-36 [facility] Mucus LM Ql (Urine sed)Order ed By: Alexsander Casanova on 06-22-2023 Mucus Ql (Urine sed) 0 SEEN /hpf [facility] Nitrite Test strip Ql (U)Ord ered By: Alexsander Casanova on 06-22-2023 Nitrite Ql (U) Negative Negative [facility] No Panel InformationOrdered By: Alexsander Casanova on 06-22-2023 Estimated GFR (MDRD) Amer 95 mL/min >60 [facility] Comment on above: GFR Calc Estimated GFR (MDRD) Non-Af Amer 78 mL/min >60 [facility] Comment on above: Non- GFR Calc Thyroid Stimulating Hormone (TSH) 2.33 uIU/mL 0.358-3.74 [facility] Vitamin D 25-Hydroxy 62.5 ng/mL [facility] Comment on above: Vitamin D 25(OH) Sta tus Range Deficiency <20 ng/mL (50nmol/L) Insufficiency 20 - 30 ng/mL (50 - 75 nmol/L) Sufficiency 30 - 100 ng/mL (75 - 250 nmol/L) Toxicity >100 ng/mL (>250 nmol/L) Platelets bldOrdered By: Eric Casanova on 06-22-2023 Platelets (Bld) [#/Vol] 224 10*3/uL 150-450 [facility] Protein Test strip Ql (U)Ord ered By: Alexsander Casanova on 06-22-2023 Protein Ql (U) Negative Negative [facility] Serum or plasma albumin butch urement (mass/volume)Ordered By: Alexsander Casanova on 06-22-2023 Albumin [Mass/Vol] 3.9 g/dL 3.2-5.0 [facility] Serum or plasma albumin/glob ulin mass ratioOrdered By: Alexsander Casanova on 06-22-2023 Albumin/Globulin [Mass ratio] 1.2 {ratio} 0.9-2.4 [facility] Serum or plasma calcium butch urement (mass/volume)Ordered By: Alexsander Casanova on 06-22-2023 Calcium [Mass/Vol] 9.0 mg/dL 8.5-10.1 [facility] Serum or plasma cholesterol in HDL measurement (mass/volume)Ordered By: Alexsander Casanova on 06-22-2023 Cholesterol in HDL [Mass/Vol] 49 mg/dL >40 [facility] Comment on above: The drugs N-Acetylcy steine and Metamizole may falsely depress this assay. Reference Range HDL <40 mg/dL Low HDL Cholesterol HDL >or= 60 mg/dL High HDL Cholesterol Serum or plasma cholesterol in VLDL measurement (mass/volume)Ordered By: Alexsander Casanova on 06-22-2023 Cholesterol in VLDL [Mass/Vol] 20 mg/dL 5-40 [facility] Serum or plasma creatinine m easurement (mass/volume)Ordered By: Alexsander Casanova on 06-22-2023 Creatinine [Mass/Vol] 1.01 mg/dL 0.70-1.30 [facility] Comment on above: The validity of the calculated GFR & GFRAA in patients over 70 years has not been determined. Clinical correlation is essential. Serum or plasma low density lipoprotein (LDL) cholesterol measurement (mass/volume)Ordered By: Alexsander Casanova on 06-22-2023 Cholesterol in LDL [Mass/Vol] 23 mg/dL 0-130 [facility] Serum or plasma urea nitroge n measurement (mass/volume)Ordered By: Alexsander Casanova on 06-22-2023 Urea nitrogen [Mass/Vol] 9 mg/dL 7-18 [facility] Squamous epithelial cells de tection in urine sediment by light microscopyOrdered By: Alexsander Casanova on 06-22-2023 Epithelial cells.squamous LM Ql (Urine sed) 0 SEEN /hpf 0-5 [facility] Thin prep Papanicolaou smear with manual screeningOrdered By: Alexsander Casanova on 06-22-2023 Thin prep Papanicolaou smear with manual screening 21 U/L 15-37 [facility] Thin prep Papanicolaou smear with manual screening 4 5-15 [facility] Urine blood detectionOrdered By: Alexsander Casanova on 06-22-2023 RBC Ql (U) Negative Negative [facility] RBC Ql (U) 0 SEEN /hpf 0-5 [facility] Urine clarityOrdered By: Eric Casanova on 06-22-2023 Clarity (U) Clear Clear [facility] Urine color determinationOrd ered By: Alexsander Casanova on 06-22-2023 Color (U) Yellow Yellow [facility] Urine glucose detectionOrder ed By: Alexsander Casanova on 06-22-2023 Glucose Ql (U) Normal mg/dl Normal [facility] Urine leukocyte esterase det ection by dipstickOrdered By: Alexsander Casanova on 06-22-2023 Leukocyte esterase Test strip Ql (U) Negative Negative [facility] Urine pHOrdered By: Alexsander appiah on 06-22-2023 pH (U) 7.0 [pH] 5.0 - 8.0 [facility] Urine sediment bacteria coun t by microscopy (number/high power field)Ordered By: Alexsander Casanova on 06-22-2023 Bacteria LM.HPF (Urine sed) [#/Area] 0 /[HPF] None Seen [facility] Urine specific gravity measu rementOrdered By: Alexsander Casanova on 06-22-2023 Specific gravity (U) [Rel density] 1.010 1.002-1.030 [facility] Urobilinogen Auto test strip Ql (U)Ordered By: Alexsander Casanova on 06-22-2023 Urobilinogen Ql (U) Normal mg/dl Normal [facility] Whole blood hemoglobin A1c/t otal hemoglobin ratio (mass fraction)Ordered By: Alexsander Casanova on 06-22-2023 HbA1c (Bld) [Mass fraction] 6.0 % 3.8-5.6 [facility] Comment on above: Normal < 5.7 % Predi abetic 5.7 - 6.4 % Diabetic >or= 6.5 % Please note range changes. Absolute lymphocyte countOrd ered By: Dr. Casanova on 01-11-2023 Lymphocytes Auto (Unsp spec) [#/Vol] 2.11 10*3/uL 0.83-4.51 [facility] Basophil percentageOrdered B y: Dr. Casanova on 01-11-2023 Basophil percentage 0 SEEN /hpf 0-5 [facility] Basophils/100 WBC (Bld) 0.5 % 0-1 [facility] Bilirubin [Mass/Vol] 0.40 mg/dL 0.20-1.00 [facility] Comment on above: For patients on eltr ombopag therapy, use of Dimension [place] TBIL is not recommended. Chloride [Moles/Vol] 109 mmol/L 98-107 [facility] Cholesterol [Mass/Vol] 107 mg/dL <200 [facility] Comment on above: <200 mg/dL Desirable 200-240 mg/dL Borderline >240 mg/dL High Risk Eosinophils/100 WBC (Bld) 1.6 % 0-5 [facility] Glucose [Mass/Vol] 105 mg/dL 74-106 [facility] Comment on above: Fasting Glucose resu lt from 100 to 125 mg/dL suggests IMPAIRED HOMEOSTASIS per A.D.A. criteria. Neutrophils (Bld) [#/Vol] 6.0 10*3/uL 2.0-7.7 [facility] Neutrophils/100 WBC (Bld) 64.3 % 47-70 [facility] Potassium [Moles/Vol] 3.8 mmol/L 3.5-5.1 [facility] Protein [Mass/Vol] 7.2 g/dL 6.4-8.2 [facility] Sodium [Moles/Vol] 138 mmol/L 136-145 [facility] Triglyceride [Mass/Vol] 158 mg/dL <199 [facility] Comment on above: The drugs N-Acetylcy steine and Metamizole may falsely depress this assay.Serum Triglycerides Reference Interval Normal <150 mg/dL Borderline high 150 - 199 mg/dL High 200 - 499 mg/dL Very High > or = 500 mg/dL WBC (Bld) [#/Vol] 9.4 10*3/uL 4.4-11.0 [facility] Bilirubin Test strip Ql (U)O rdered By: Dr. Casanova on 01-11-2023 Bilirubin Ql (U) Negative Negative [facility] Blood erythrocytes count (nu mber/volume)Ordered By: Dr. Casanova on 01-11-2023 RBC (Bld) [#/Vol] 4.67 10*6/uL 4.6-6.2 [facility] Blood hemoglobin measurement (mass/volume)Ordered By: Dr. Casanova on 01-11-2023 Hemoglobin (Bld) [Mass/Vol] 15.3 g/dL 13.0-16.5 [facility] Blood lymphocytes/100 leukoc ytesOrdered By: Dr. Casanova on 01-11-2023 Lymphocytes/100 WBC (Bld) 22.6 % 19-41 [facility] Blood monocytes/100 leukocyt esOrdered By: Dr. Casanova on 01-11-2023 Monocytes/100 WBC (Bld) 10.7 % 0-10 [facility] Blood platelet mean volumeOr dered By: Dr. Casanova on 01-11-2023 Platelet mean volume (Bld) [Entitic vol] 11.8 fL 6.2-12.0 [facility] Determination of erythrocyte mean corpuscular volume (MCV)Ordered By: Dr. Casanova on 01-11-2023 MCV (RBC) [Entitic vol] 97.2 fL 80-94 [facility] Hematocrit Auto (Bld) [Volum e fraction]Ordered By: Dr. Casanova on 01-11-2023 Hematocrit (Bld) [Volume fraction] 45.4 % 40-54 [facility] Ketones Test strip Ql (U)Ord ered By: Dr. Casanova on 01-11-2023 Ketones Ql (U) Negative Negative [facility] Laboratory - Chemistry and C hemistry - challengeOrdered By: Dr. Casanova on 01-11-2023 ALP [Catalytic activity/Vol] 102 U/L 45-117 [facility] ALT [Catalytic activity/Vol] 27 U/L 16-61 [facility] CO2 [Moles/Vol] 26.0 mmol/L 21.0-32.0 [facility] Free T4 [Mass/Vol] 0.97 ng/dL 0.76-1.46 [facility] Globulin (S) [Mass/Vol] 3.4 g/dL 2.2-4.2 [facility] Urea nitrogen/Creatinine [Mass ratio] 7.0 mg/mg 10-20 [facility] Laboratory - Hematology and Cell countsOrdered By: Dr. Casanova on 01-11-2023 Erythrocyte distribution width (RBC) [Entitic vol] 43.7 fL 35.1-43.9 [facility] Erythrocyte distribution width (RBC) [Ratio] 12.2 % 11.6-14.6 [facility] Immature granulocytes/100 WBC (Bld) 0.300 % 0.0-0.9 [facility] Comment on above: IG% - Immature Granu locytes (promyelocytes, myelocytes and metamyelocytes) > 1% indicates that a LEFT SHIFT is Present. MCH (RBC) [Entitic mass] 32.8 pg 27.0-32.0 [facility] Nucleated RBC/100 WBC (Bld) [Ratio] 0 % 0-5 [facility] MCHC Auto (RBC) [Mass/Vol]Or dered By: Dr. Casanova on 01-11-2023 MCHC (RBC) [Mass/Vol] 33.7 g/dL 32-36 [facility] Mucus LM Ql (Urine sed)Order ed By: Dr. Casanova on 01-11-2023 Mucus Ql (Urine sed) 0 SEEN /hpf [facility] Nitrite Test strip Ql (U)Ord ered By: Dr. Casanova on 01-11-2023 Nitrite Ql (U) Negative Negative [facility] No Panel InformationOrdered By: Dr. Casanova on 01-11-2023 Estimated GFR (MDRD) Amer 97 mL/min >60 [facility] Comment on above: GFR Calc Estimated GFR (MDRD) Non-Af Amer 80 mL/min >60 [facility] Comment on above: Non- GFR Calc Thyroid Stimulating Hormone (TSH) 1.78 uIU/mL 0.358-3.74 [facility] Vitamin D 25-Hydroxy 79.8 ng/mL [facility] Comment on above: Vitamin D 25(OH) Sta tus Range Deficiency <20 ng/mL (50nmol/L) Insufficiency 20 - 30 ng/mL (50 - 75 nmol/L) Sufficiency 30 - 100 ng/mL (75 - 250 nmol/L) Toxicity >100 ng/mL (>250 nmol/L) Platelets bldOrdered By: Dr. Casanova on 01-11-2023 Platelets (Bld) [#/Vol] 207 10*3/uL 150-450 [facility] Protein Test strip Ql (U)Ord ered By: Dr. Casanova on 01-11-2023 Protein Ql (U) Negative Negative [facility] Serum or plasma albumin butch urement (mass/volume)Ordered By: Dr. Casanova on 01-11-2023 Albumin [Mass/Vol] 3.8 g/dL 3.2-5.0 [facility] Serum or plasma albumin/glob ulin mass ratioOrdered By: Dr. Casanova on 01-11-2023 Albumin/Globulin [Mass ratio] 1.1 {ratio} 0.9-2.4 [facility] Serum or plasma calcium butch urement (mass/volume)Ordered By: Dr. Casanova on 01-11-2023 Calcium [Mass/Vol] 9.4 mg/dL 8.5-10.1 [facility] Serum or plasma cholesterol in HDL measurement (mass/volume)Ordered By: Dr. Casanova on 01-11-2023 Cholesterol in HDL [Mass/Vol] 42 mg/dL >40 [facility] Comment on above: The drugs N-Acetylcy steine and Metamizole may falsely depress this assay. Reference Range HDL <40 mg/dL Low HDL Cholesterol HDL >or= 60 mg/dL High HDL Cholesterol Serum or plasma cholesterol in VLDL measurement (mass/volume)Ordered By: Dr. Casanova on 01-11-2023 Cholesterol in VLDL [Mass/Vol] 32 mg/dL 5-40 [facility] Serum or plasma creatinine m easurement (mass/volume)Ordered By: Dr. Casanova on 01-11-2023 Creatinine [Mass/Vol] 0.99 mg/dL 0.70-1.30 [facility] Comment on above: The validity of the calculated GFR & GFRAA in patients over 70 years has not been determined. Clinical correlation is essential. Serum or plasma low density lipoprotein (LDL) cholesterol measurement (mass/volume)Ordered By: Dr. Casanova on 01-11-2023 Cholesterol in LDL [Mass/Vol] 33 mg/dL 0-130 [facility] Serum or plasma urea nitroge n measurement (mass/volume)Ordered By: Dr. Casanova on 01-11-2023 Urea nitrogen [Mass/Vol] 7 mg/dL 7-18 [facility] Squamous epithelial cells de tection in urine sediment by light microscopyOrdered By: Dr. Casanova on 01-11-2023 Epithelial cells.squamous LM Ql (Urine sed) 0 SEEN /hpf 0-5 [facility] Thin prep Papanicolaou smear with manual screeningOrdered By: Dr. Casanova on 01-11-2023 Thin prep Papanicolaou smear with manual screening 21 U/L 15-37 [facility] Thin prep Papanicolaou smear with manual screening 3 5-15 [facility] Urine blood detectionOrdered By: Dr. Casanova on 01-11-2023 RBC Ql (U) 10 /ul Negative [facility] RBC Ql (U) 0 SEEN /hpf 0-5 [facility] Urine clarityOrdered By: Dr. Casanova on 01-11-2023 Clarity (U) Clear Clear [facility] Urine color determinationOrd ered By: Dr. Casanova on 01-11-2023 Color (U) Yellow Yellow [facility] Urine glucose detectionOrder ed By: Dr. Casanova on 01-11-2023 Glucose Ql (U) 250 mg/dl Normal [facility] Urine leukocyte esterase det ection by dipstickOrdered By: Dr. Casanova on 01-11-2023 Leukocyte esterase Test strip Ql (U) Negative Negative [facility] Urine pHOrdered By: Dr. Verna del real on 01-11-2023 pH (U) 5.0 [pH] 5.0 - 8.0 [facility] Urine sediment bacteria coun t by microscopy (number/high power field)Ordered By: Dr. Casanova on 01-11-2023 Bacteria LM.HPF (Urine sed) [#/Area] 0 /[HPF] None Seen [facility] Urine specific gravity measu rementOrdered By: Dr. Casanova on 01-11-2023 Specific gravity (U) [Rel density] 1.015 1.002-1.030 [facility] Urobilinogen Auto test strip Ql (U)Ordered By: Dr. Casanova on 01-11-2023 Urobilinogen Ql (U) Normal mg/dl Normal [facility] Whole blood hemoglobin A1c/t otal hemoglobin ratio (mass fraction)Ordered By: Dr. Casanova on 01-11-2023 HbA1c (Bld) [Mass fraction] 5.9 % 3.8-5.6 [facility] Comment on above: Normal < 5.7 % Predi abetic 5.7 - 6.4 % Diabetic >or= 6.5 % Please note range changes. Absolute lymphocyte countOrd ered By: Dr. Casanova on 10-13-2022 Lymphocytes Auto (Unsp spec) [#/Vol] 2.10 10*3/uL 0.83-4.51 [facility] Basophil percentageOrdered B y: Dr. Casanova on 10-13-2022 Basophil percentage 0 SEEN /hpf 0-5 [facility] Basophils/100 WBC (Bld) 0.4 % 0-1 [facility] Bilirubin [Mass/Vol] 0.40 mg/dL 0.20-1.00 [facility] Comment on above: For patients on eltr ombopag therapy, use of Dimension [place] TBIL is not recommended. Chloride [Moles/Vol] 104 mmol/L 98-107 [facility] Cholesterol [Mass/Vol] 121 mg/dL <200 [facility] Comment on above: <200 mg/dL Desirable 200-240 mg/dL Borderline >240 mg/dL High Risk Eosinophils/100 WBC (Bld) 1.4 % 0-5 [facility] Glucose [Mass/Vol] 88 mg/dL 74-106 [facility] Neutrophils (Bld) [#/Vol] 5.7 10*3/uL 2.0-7.7 [facility] Neutrophils/100 WBC (Bld) 61.5 % 47-70 [facility] Potassium [Moles/Vol] 4.3 mmol/L 3.5-5.1 [facility] Protein [Mass/Vol] 6.7 g/dL 6.4-8.2 [facility] Sodium [Moles/Vol] 139 mmol/L 136-145 [facility] Triglyceride [Mass/Vol] 89 mg/dL <199 [facility] Comment on above: The drugs N-Acetylcy steine and Metamizole may falsely depress this assay.Serum Triglycerides Reference Interval Normal <150 mg/dL Borderline high 150 - 199 mg/dL High 200 - 499 mg/dL Very High > or = 500 mg/dL WBC (Bld) [#/Vol] 9.3 10*3/uL 4.4-11.0 [facility] Bilirubin Test strip Ql (U)O rdered By: Dr. Casanova on 10-13-2022 Bilirubin Ql (U) Negative Negative [facility] Blood erythrocytes count (nu mber/volume)Ordered By: Dr. Casanova on 10-13-2022 RBC (Bld) [#/Vol] 4.21 10*6/uL 4.6-6.2 [facility] Blood hemoglobin measurement (mass/volume)Ordered By: Dr. Casanova on 10-13-2022 Hemoglobin (Bld) [Mass/Vol] 13.6 g/dL 13.0-16.5 [facility] Blood lymphocytes/100 leukoc ytesOrdered By: Dr. Casanova on 10-13-2022 Lymphocytes/100 WBC (Bld) 22.6 % 19-41 [facility] Blood monocytes/100 leukocyt esOrdered By: Dr. Casanova on 10-13-2022 Monocytes/100 WBC (Bld) 13.5 % 0-10 [facility] Blood platelet mean volumeOr dered By: Dr. Casanova on 10-13-2022 Platelet mean volume (Bld) [Entitic vol] 11.7 fL 6.2-12.0 [facility] Determination of erythrocyte mean corpuscular volume (MCV)Ordered By: Dr. Casanova on 10-13-2022 MCV (RBC) [Entitic vol] 98.1 fL 80-94 [facility] Hematocrit Auto (Bld) [Volum e fraction]Ordered By: Dr. Casanova on 10-13-2022 Hematocrit (Bld) [Volume fraction] 41.3 % 40-54 [facility] Ketones Test strip Ql (U)Ord ered By: Dr. Casanova on 10-13-2022 Ketones Ql (U) Negative Negative [facility] Laboratory - Chemistry and C hemistry - challengeOrdered By: Dr. Casanova on 10-13-2022 ALP [Catalytic activity/Vol] 90 U/L 45-117 [facility] ALT [Catalytic activity/Vol] 38 U/L 16-61 [facility] CO2 [Moles/Vol] 29.0 mmol/L 21.0-32.0 [facility] Free T4 [Mass/Vol] 0.95 ng/dL 0.76-1.46 [facility] Globulin (S) [Mass/Vol] 2.9 g/dL 2.2-4.2 [facility] Urea nitrogen/Creatinine [Mass ratio] 16.5 mg/mg 10-20 [facility] - Hematology and Cell countsOrdered By: Dr. Casanova on 10-13-2022 Erythrocyte distribution width (RBC) [Entitic vol] 45.1 fL 35.1-43.9 [facility] Erythrocyte distribution width (RBC) [Ratio] 12.6 % 11.6-14.6 [facility] Immature granulocytes/100 WBC (Bld) 0.600 % 0.0-0.9 [facility] Comment on above: IG% - Immature Granu locytes (promyelocytes, myelocytes and metamyelocytes) > 1% indicates that a LEFT SHIFT is Present. MCH (RBC) [Entitic mass] 32.3 pg 27.0-32.0 [facility] Nucleated RBC/100 WBC (Bld) [Ratio] 0 % 0-5 [facility] MCHC Auto (RBC) [Mass/Vol]Or dered By: Dr. Casanova on 10-13-2022 MCHC (RBC) [Mass/Vol] 32.9 g/dL 32-36 [facility] Mucus LM Ql (Urine sed)Order ed By: Dr. Casanova on 10-13-2022 Mucus Ql (Urine sed) 0 SEEN /hpf [facility] Nitrite Test strip Ql (U)Ord ered By: Dr. Casanova on 10-13-2022 Nitrite Ql (U) Negative Negative [facility] No Panel InformationOrdered By: Dr. Casanova on 10-13-2022 Estimated GFR (MDRD) Amer 82 mL/min >60 [facility] Comment on above: GFR Calc Estimated GFR (MDRD) Non-Af Amer 68 mL/min >60 [facility] Comment on above: Non- GFR Calc Thyroid Stimulating Hormone (TSH) 1.85 uIU/mL 0.358-3.74 [facility] Vitamin D 25-Hydroxy 70.0 ng/mL [facility] Comment on above: Vitamin D 25(OH) Sta tus Range Deficiency <20 ng/mL (50nmol/L) Insufficiency 20 - 30 ng/mL (50 - 75 nmol/L) Sufficiency 30 - 100 ng/mL (75 - 250 nmol/L) Toxicity >100 ng/mL (>250 nmol/L) Platelets bldOrdered By: Dr. Casanova on 10-13-2022 Platelets (Bld) [#/Vol] 205 10*3/uL 150-450 [facility] Protein Test strip Ql (U)Ord ered By: Dr. Casaonva on 10-13-2022 Protein Ql (U) Negative Negative [facility] Serum or plasma albumin butch urement (mass/volume)Ordered By: Dr. Casanova on 10-13-2022 Albumin [Mass/Vol] 3.8 g/dL 3.2-5.0 [facility] Serum or plasma albumin/glob ulin mass ratioOrdered By: Dr. Casanova on 10-13-2022 Albumin/Globulin [Mass ratio] 1.3 {ratio} 0.9-2.4 [facility] Serum or plasma calcium butch urement (mass/volume)Ordered By: Dr. Casanova on 10-13-2022 Calcium [Mass/Vol] 9.0 mg/dL 8.5-10.1 [facility] Serum or plasma cholesterol in HDL measurement (mass/volume)Ordered By: Dr. Casanova on 10-13-2022 Cholesterol in HDL [Mass/Vol] 56 mg/dL >40 [facility] Comment on above: The drugs N-Acetylcy steine and Metamizole may falsely depress this assay. Reference Range HDL <40 mg/dL Low HDL Cholesterol HDL >or= 60 mg/dL High HDL Cholesterol Serum or plasma cholesterol in VLDL measurement (mass/volume)Ordered By: Dr. Casanova on 10-13-2022 Cholesterol in VLDL [Mass/Vol] 18 mg/dL 5-40 [facility] Serum or plasma creatinine m easurement (mass/volume)Ordered By: Dr. Casanova on 10-13-2022 Creatinine [Mass/Vol] 1.15 mg/dL 0.70-1.30 [facility] Comment on above: The validity of the calculated GFR & GFRAA in patients over 70 years has not been determined. Clinical correlation is essential. Serum or plasma low density lipoprotein (LDL) cholesterol measurement (mass/volume)Ordered By: Dr. Casanova on 10-13-2022 Cholesterol in LDL [Mass/Vol] 47 mg/dL 0-130 [facility] Serum or plasma urea nitroge n measurement (mass/volume)Ordered By: Dr. Casanova on 10-13-2022 Urea nitrogen [Mass/Vol] 19 mg/dL 7-18 [facility] Squamous epithelial cells de tection in urine sediment by light microscopyOrdered By: Dr. Casanova on 10-13-2022 Epithelial cells.squamous LM Ql (Urine sed) 0 SEEN /hpf 0-5 [facility] Thin prep Papanicolaou smear with manual screeningOrdered By: Dr. Casanova on 10-13-2022 Thin prep Papanicolaou smear with manual screening 14 U/L 15-37 [facility] Thin prep Papanicolaou smear with manual screening 6 5-15 [facility] Urine blood detectionOrdered By: Dr. Casanova on 10-13-2022 RBC Ql (U) Negative Negative [facility] RBC Ql (U) 0 SEEN /hpf 0-5 [facility] Urine clarityOrdered By: Dr. Casanova on 10-13-2022 Clarity (U) Clear Clear [facility] Urine color determinationOrd ered By: Dr. Casanova on 10-13-2022 Color (U) Yellow Yellow [facility] Urine glucose detectionOrder ed By: Dr. Casanova on 10-13-2022 Glucose Ql (U) Normal mg/dl Normal [facility] Urine leukocyte esterase det ection by dipstickOrdered By: Dr. Casanova on 10-13-2022 Leukocyte esterase Test strip Ql (U) Negative Negative [facility] Urine pHOrdered By: Dr. Verna del real on 10-13-2022 pH (U) 7.0 [pH] 5.0 - 8.0 [facility] Urine sediment bacteria coun t by microscopy (number/high power field)Ordered By: Dr. Casanova on 10-13-2022 Bacteria LM.HPF (Urine sed) [#/Area] 0 /[HPF] None Seen [facility] Urine specific gravity measu rementOrdered By: Dr. Casanova on 10-13-2022 Specific gravity (U) [Rel density] 1.010 1.002-1.030 [facility] Urobilinogen Auto test strip Ql (U)Ordered By: Dr. Casanova on 10-13-2022 Urobilinogen Ql (U) Normal mg/dl Normal [facility] Whole blood hemoglobin A1c/t otal hemoglobin ratio (mass fraction)Ordered By: Dr. Casanova on 10-13-2022 HbA1c (Bld) [Mass fraction] 5.8 % 3.8-5.6 [facility] Comment on above: Normal < 5.7 % Predi abetic 5.7 - 6.4 % Diabetic >or= 6.5 % Please note range changes. No Panel InformationOrdered By: Aleah Ball on 07-14-2022 Prostate Specific Antigen Screen 0.17 ng/mL 0.00-4.00 [facility] Comment on above: This test was perfor med using the TPSA assay method for the[facility]. Values obtained with differentassay methods cannot be used interchangably.When changing PSA assays in the course of monitoring apatient, additional sequential testing should be carriedout to confirm baseline values. Absolute lymphocyte counton 03-11-2022 Lymphocytes Auto (Unsp spec) [#/Vol] 1.62 10*3/uL 0.83-4.51 [facility] Work Phone: Basophil percentageon 2021 Basophils/100 WBC (Bld) 0.5 % 0-1 [facility] Work Phone: [phone] Bilirubin [Mass/Vol] 0.40 mg/dL 0.20-1.00 [facility] Work Phone: Comment on above: For patients on eltr ombopag therapy, use of Dimension [place] TBIL is not recommended. Chloride [Moles/Vol] 107 mmol/L 98-107 [facility] Work Phone: Cholesterol [Mass/Vol] 126 mg/dL <200 [facility] Work Phone: Comment on above: <200 mg/dL Desirable 200-240 mg/dL Borderline >240 mg/dL High Risk Eosinophils/100 WBC (Bld) 1.5 % 0-5 [facility] Work Phone: Glucose [Mass/Vol] 101 mg/dL 74-106 [facility] Work Phone: Comment on above: Fasting Glucose resu lt from 100 to 125 mg/dL suggests IMPAIRED HOMEOSTASIS per A.D.A. criteria. Neutrophils (Bld) [#/Vol] 5.6 10*3/uL 2.0-7.7 [facility] Work Phone: Neutrophils/100 WBC (Bld) 68.5 % 47-70 [facility] Work Phone: Potassium [Moles/Vol] 4.3 mmol/L 3.5-5.1 [facility] Work Phone: Protein [Mass/Vol] 6.6 g/dL 6.4-8.2 [facility] Work Phone: Sodium [Moles/Vol] 139 mmol/L 136-145 [facility] Work Phone: Triglyceride [Mass/Vol] 93 mg/dL <199 [facility] Work Phone: Comment on above: The drugs N-Acetylcy steine and Metamizole may falsely depress this assay.Serum Triglycerides Reference Interval Normal <150 mg/dL Borderline high 150 - 199 mg/dL High 200 - 499 mg/dL Very High > or = 500 mg/dL WBC (Bld) [#/Vol] 8.1 10*3/uL 4.4-11.0 [facility] Work Phone: Blood erythrocytes count (nu mber/volume)on 03-11-2022 RBC (Bld) [#/Vol] 4.26 10*6/uL 4.6-6.2 [facility] Work Phone: Blood hemoglobin measurement (mass/volume)on 03-11-2022 Hemoglobin (Bld) [Mass/Vol] 13.6 g/dL 13.0-16.5 [facility] Work Phone: Blood lymphocytes/100 leukoc yteson 03-11-2022 Lymphocytes/100 WBC (Bld) 19.9 % 19-41 [facility] Work Phone: Blood monocytes/100 leukocyt eson 03-11-2022 Monocytes/100 WBC (Bld) 9.2 % 0-10 [facility] Work Phone: Blood platelet mean volumeon 03-11-2022 Platelet mean volume (Bld) [Entitic vol] 11.5 fL 6.2-12.0 [facility] Work Phone: Determination of erythrocyte mean corpuscular volume (MCV)on 03-11-2022 MCV (RBC) [Entitic vol] 97.4 fL 80-94 [facility] Work Phone: Hematocrit Auto (Bld) [Volum e fraction]on 03-11-2022 Hematocrit (Bld) [Volume fraction] 41.5 % 40-54 [facility] Work Phone: Laboratory - Chemistry and C hemistry - challengeon 03-11-2022 ALP [Catalytic activity/Vol] 95 U/L 45-117 [facility] Work Phone: [phone] ALT [Catalytic activity/Vol] 22 U/L 16-61 [facility] Work Phone: [phone] CO2 [Moles/Vol] 27.0 mmol/L 21.0-32.0 [facility] Work Phone: [phone] Free T4 [Mass/Vol] 0.90 ng/dL 0.76-1.46 [facility] Work Phone: [phone] Globulin (S) [Mass/Vol] 2.8 g/dL 2.2-4.2 [facility] Work Phone: [phone] Urea nitrogen/Creatinine [Mass ratio] 9.1 mg/mg 10-20 [facility] Work Phone: [phone] Laboratory - Hematology and Cell countson 03-11-2022 Erythrocyte distribution width (RBC) [Entitic vol] 44.9 fL 35.1-43.9 [facility] Work Phone: [phone] Erythrocyte distribution width (RBC) [Ratio] 12.5 % 11.6-14.6 [facility] Work Phone: [phone] Immature granulocytes/100 WBC (Bld) 0.400 % 0.0-0.9 [facility] Work Phone: [phone] Comment on above: IG% - Immature Granu locytes (promyelocytes, myelocytes and metamyelocytes) > 1% indicates that a LEFT SHIFT is Present. MCH (RBC) [Entitic mass] 31.9 pg 27.0-32.0 [facility] Work Phone: [phone] Nucleated RBC/100 WBC (Bld) [Ratio] 0 % 0-5 [facility] Work Phone: [phone] MCHC Auto (RBC) [Mass/Vol]on 03-11-2022 MCHC (RBC) [Mass/Vol] 32.8 g/dL 32-36 [facility] Work Phone: [phone] No Panel Informationon 03-11 Estimated GFR (MDRD) Amer 97 mL/min >60 [facility] Work Phone: [phone] Comment on above: GFR Calc Estimated GFR (MDRD) Non-Af Amer 80 mL/min >60 [facility] Work Phone: Comment on above: Non- GFR Calc Thyroid Stimulating Hormone (TSH) 2.25 uIU/mL 0.358-3.74 [facility] Work Phone: Vitamin D 25-Hydroxy 69.8 ng/mL [facility] Work Phone: Comment on above: Vitamin D 25(OH) Sta tus Range Deficiency <20 ng/mL (50nmol/L) Insufficiency 20 - 30 ng/mL (50 - 75 nmol/L) Sufficiency 30 - 100 ng/mL (75 - 250 nmol/L) Toxicity >100 ng/mL (>250 nmol/L) Platelets bldon 03-11-2022 Platelets (Bld) [#/Vol] 219 10*3/uL 150-450 [facility] Work Phone: Serum or plasma albumin butch urement (mass/volume)on 03-11-2022 Albumin [Mass/Vol] 3.8 g/dL 3.2-5.0 [facility] Work Phone: Serum or plasma albumin/glob ulin mass ratioon 03-11-2022 Albumin/Globulin [Mass ratio] 1.4 {ratio} 0.9-2.4 [facility] Work Phone: Serum or plasma calcium butch urement (mass/volume)on 03-11-2022 Calcium [Mass/Vol] 8.9 mg/dL 8.5-10.1 [facility] Work Phone: Serum or plasma cholesterol in HDL measurement (mass/volume)on 03-11-2022 Cholesterol in HDL [Mass/Vol] 48 mg/dL >40 [facility] Work Phone: Comment on above: The drugs N-Acetylcy steine and Metamizole may falsely depress this assay. Reference Range HDL <40 mg/dL Low HDL Cholesterol HDL >or= 60 mg/dL High HDL Cholesterol Serum or plasma cholesterol in VLDL measurement (mass/volume)on 03-11-2022 Cholesterol in VLDL [Mass/Vol] 19 mg/dL 5-40 [facility] Work Phone: Serum or plasma creatinine m easurement (mass/volume)on 03-11-2022 Creatinine [Mass/Vol] 0.99 mg/dL 0.70-1.30 [facility] Work Phone: Comment on above: The validity of the calculated GFR & GFRAA in patients over 70 years has not been determined. Clinical correlation is essential. Serum or plasma low density lipoprotein (LDL) cholesterol measurement (mass/volume)on 03-11-2022 Cholesterol in LDL [Mass/Vol] 59 mg/dL 0-130 [facility] Work Phone: Serum or plasma urea nitroge n measurement (mass/volume)on 03-11-2022 Urea nitrogen [Mass/Vol] 9 mg/dL 7-18 [facility] Work Phone: Thin prep Papanicolaou smear with manual screeningon 03-11-2022 Thin prep Papanicolaou smear with manual screening 14 U/L 15-37 [facility] Work Phone: Thin prep Papanicolaou smear with manual screening 5 5-15 [facility] Work Phone: OBSOLETEon 11-16-2020 OBSOLETE Refill (JACINTA) KALE SHEEHAN ([id number]) 1955 M Date Time Provider Department 11/16/20 EDIS GUY During your visit today, we recorded the following information about you: Ping Burnette [facility] 11/17/2020 11:39 AM Signed Pharmacy faxed requesting the following refill. Pending Prescriptions Disp Refills SYMBICORT 160 MCG-4.5 MCG/ACTUATION HFA AEROSOL INHALER 10.2 g 5 Sig: Inhale 1 Puff as instructed twice daily. CHEMA: Yes Patient last appointment: Visit date not found Patient Phone numbers: [phone] (home) Request is for script(s) to be escript to pharmacy. Ping Burnette [employer] [facility] Allergies As of Date: 11/16/2020 Noted Allergy [...] daily. FLUTICASONE PROPIONATE 50 MCG* Use 1 [place] in each nostril d* IPRATROPIUM 20 MCG-ALBUTEROL [...] by EDIS GUY MD on 11/17/20 Normal [facility] CBCon 12-31-2018 Erythrocyte distribution width Ratio (RBC) 12.6 % Normal 11.5-15.0 [facility] Comment on above: Performed By: #### C BC, CK, CMP #### [facility] [address] [place] [address] Hematocrit Volume Fraction (Bld) 43.5 % Normal 39.0-51.0 [facility] Comment on above: Performed By: #### C BC, CK, CMP #### [facility] [address] [place] [address] Hemoglobin mass conc (Bld) 14.8 g/dL Normal 13.0-17.0 [facility] Comment on above: Performed By: #### C BC, CK, CMP #### [facility] [address] [place] [address] MCH Entitic mass (RBC) 31.8 pG Normal 26.0-34.0 [facility] Comment on above: Performed By: #### C BC, CK, CMP #### [facility] [address] [place] [address] MCHC mass conc (RBC) 34.0 g/dL Normal 30.5-36.0 [facility] Comment on above: Performed By: #### C BC, CK, CMP #### [facility] [address] [place] [address] MCV Entitic volume (RBC) 93.5 fL Normal 80.0-100.0 [facility] Comment on above: Performed By: #### C BC, CK, CMP #### [facility] [address] [place] [address] Platelet mean volume Entitic volume (Bld) 11.6 fL Normal 9.0-12.7 [facility] Comment on above: Performed By: #### C BC, CK, CMP #### [facility] [address] [facility] [phone] Platelets #/vol (Bld) 184 10*3/uL Normal 150-400 [facility] Comment on above: Performed By: #### C BC, CK, CMP #### [facility] [address] [facility] [address] [phone] RBC #/vol (Bld) 4.65 10*6/uL Normal 4.20-6.00 [facility] Comment on above: Performed By: #### C BC, CK, CMP #### [facility] [address] [facility] [phone] WBC #/vol (Bld) 10.07 10*3/uL Normal 3.70-11.00 [facility] Comment on above: Performed By: #### C BC, CK, CMP #### [facility] [address] [facility] [address] [phone] CKon 12-31-2018 CK enzyme act/vol 405 U/L High 51-298 [facility] Comment on above: Performed By: #### C BC, CK, CMP #### [facility] [address] [facility] [phone] CNCOon 12-31-2018 CNCO Letter Text Letter Text Normal [facility] CT ABD/PEL W IVCONon 019 CT ABD/PEL W IVCON * * *Final Report* * * DATE OF EXAM: Dec 31 2018 11:15AM [facility] [place] ABD/PEL W IVCON / [...] or pericolonic inflammatory change to suggest diverticulitis.. Melt Superintendant: LUIS Transcribe Date/Time: Dec 31 2018 12:34P Dictated by : ALLEGRA EPPS MD This examination was interpreted and the report reviewed and electronically signed by: ALLEGRA EPPS MD on Dec 31 2018 12:49PM EST [id number] Normal [facility] Comp Metabolic Panelon 12-31 Albumin mass conc 4.8 g/dL Normal 3.9-4.9 [facility] Comment on above: Performed By: #### C BC, CK, CMP #### [facility] [address] [facility] [phone] ALP enzyme act/vol 87 U/L Normal 38-113 [facility] Comment on above: Performed By: #### C BC, CK, CMP #### [facility] [address] [place] [address] ALT enzyme act/vol 15 U/L Normal 10-54 [facility] Comment on above: Performed By: #### C BC, CK, CMP #### [facility] [address] [place] [address] Anion gap molar conc 6 mmol/L Low 9-18 [facility] Comment on above: Performed By: #### C BC, CK, CMP #### [facility] [address] [place] [address] AST enzyme act/vol 19 U/L Normal 14-40 [facility] Comment on above: Performed By: #### C BC, CK, CMP #### [facility] [address] [place] [address] Bilirubin mass conc 0.6 mg/dL Normal 0.2-1.3 [facility] Comment on above: Performed By: #### C BC, CK, CMP #### [facility] [address] [place] [address] Calcium mass conc 9.3 mg/dL Normal 8.5-10.2 [facility] Comment on above: Performed By: #### C BC, CK, CMP #### [facility] [address] [place] [address] Chloride molar conc 100 mmol/L Normal 97-105 [facility] Comment on above: Performed By: #### C BC, CK, CMP #### [facility] [address] [place] [address] CO2 molar conc 30 mmol/L Normal 22-30 [facility] Comment on above: Performed By: #### C BC, CK, CMP #### [facility] [address] [place] [address] Creatinine mass conc 1.13 mg/dL Normal 0.73-1.22 [facility] Comment on above: Performed By: #### C BC, CK, CMP #### [facility] [address] [place] [address] eGFR- Amer. >60 Normal [facility] Comment on above: Performed By: #### C BC, CK, CMP #### [facility] [address] [place] [address] GFR/1.73 sq M predicted among non-blacks MDRD vol rate/area (S/P/Bld) mL/min/{1.73_m2} Normal [facility] Comment on above: Result Comment: eGFR (Estimated [...] reflect actual GFR. Performed By: #### C PAVAN WATSON, CMP #### [facility] [address] [place] [address] Glucose mass conc 95 mg/dL Normal 74-99 [facility] Comment on above: Result Comment: The [place] [employer] (ADA) provides guidance for cutoff [...] Standards of Medical Care in Diabetes 2016, [place] [employer]. Diabetes Care. 2016.39(Suppl 1). Performed By: #### C BC, CK, CMP #### [facility] [address] [place] [address] Potassium molar conc 4.0 mmol/L Normal 3.7-5.1 [facility] Comment on above: Performed By: #### C SHIRLEY, CK, CMP #### [facility] [address] [place] [address] Protein mass conc 7.0 g/dL Normal 6.3-8.0 [facility] Comment on above: Performed By: #### C BC, CK, CMP #### [facility] [address] [place] [phone] Sodium molar conc 136 mmol/L Normal 136-144 [facility] Comment on above: Performed By: #### C BC, CK, CMP #### [facility] [address] [facility] [phone] Urea nitrogen mass conc 11 mg/dL Normal 9-24 [facility] Comment on above: Performed By: #### C BC, CK, CMP #### [facility] [address] [facility] [phone] ECG COMPLETEon 12-31-2018 ECG COMPLETE NAME : KALE SHEEHAN PID : [id number] : 1955 Gender : Male Race : ORD : [id number] Procedure Date : Dec 30 2018 22:19:31 Edit Date : Dec 31 2018 09:20:00 Diagnosis:NORMAL SINUS RHYTHM LEFT AXIS DEVIATION ABNORMAL ECG NSR agree Confirmed by Kuldeep DUONG EDWARD F. ([id number]), website/blog editor TONY PATEL ([id number]) on 12/31/2018 9:19:59 AM Ventricular Rate : 85 BPM Atrial Rate : 85 BPM P-R Interval : 140 ms QRS Duration : 84 ms Q-T Interval : 354 ms QTC Calculation(Bezet) : 421 ms P Alpine : 78 degrees R Alpine : -64 degrees T Alpine : 49 degrees Test Reason : Chest Pain Location : 1 : ER 5 Overread By : Kuldeep DUONG EDWARD F. Edited By : TONY PATEL Referred By : , Acquired by : , [facility] ED NOTEon 12-31-2018 ED NOTE HNO ID: [id number] Author: Ruth Torre) JANELLE Gordillo Service: ? Author Type: Registered Nurse Type: ED Notes Filed: 12/30/2018 11:59 PM Note Text: Pt and pt family requesting to stay at hospital for admission. Pt and pt family not willing to wait for [place] approval. [facility] ED NOTE HNO ID: [id number] Author: Ruth Torre) Duy, JANELLE Service: ? Author Type: Registered Nurse Type: ED Notes Filed: 12/30/2018 11:58 PM Note Text: Message left with [place] hospital transfer line for admission. [facility] ED NOTE HNO ID: [id number] Author: Ruth Torre) KoJANELLE rust Service: ? Author Type: Registered Nurse Type: ED Notes Filed: 12/30/2018 11:07 PM Note Text: Pt requesting breathing treatment. [facility] ED PROV NOTEon 12-31-2018 Protein mass conc HNO ID: [id number] Author: Ricardo Duong MD Service: ? Author [...] assigned to observation medicine Ricardo Duong MD [facility] SIGNATURE: MD Ricardo Merino MD 12/30/18 [id number] Normal [facility] HISTORY PHYSICALon 9 HISTORY PHYSICAL HNO ID: [id number] Author: Mae Cueva Service: Hospital Medicine Author Type: Physician Type: HANDP Filed: 12/31/2018 12:44 AM Note Text: SERVICE DATE: 12/31/2018 SERVICE TIME: 12:43 AM HOSPITAL MEDICINE HISTORY AND PHYSICAL PCP: Cliff Pastor MD NIGHT AND WEEKEND COVERAGE: Nights: Please contact pager [phone]. SUBJECTIVE Chief Complaint: Shortness of breath for [...] assistance in establishment of care with a fiberglass boat finisher either in this admission or as an [...] 31, 2018 TIME: 12:43 AM PAGER/CONTACT #: [phone] Normal [facility] Legionella Urine Agon 2018 Legionella Urine Ag Negative Normal Negative [facility] Comment on above: Performed By: #### C BC, CK, CMP #### [facility] [address] [place] [address] Lipaseon 12-31-2018 Lipase enzyme act/vol 19 U/L Normal 16-61 [facility] Comment on above: Performed By: #### C SHIRLEY, CK, CMP #### [facility] [address] [address] Mycoplasma IgM ABon 01-01-20 19 M. pneumo IgM, Qual Negative Normal Negative [facility] Comment on above: Result Comment: No s ignificant amount of IgM antibodies to M. pneumoniae detected. A nonreactive result indicates no current/previous infection. Performed By: #### C SHIRLEY, CK, CMP #### [facility] [address] [place] [address] Mycoplasma IgM AB 0.52 OD Ratio Normal [facility] Comment on above: Result Comment: Inde x Values/OD Ratios are interpreted as follows: Negative: < or = 0.90 Equivocal: 0.91 to 1.09 Positive: > or = 1.10 The magnitude of the measured result above the cutoff is not indicative of the total amount of antibody present and cannot be correlated to IFA titers. Performed By: #### C SHIRLEY, CK, CMP #### [facility] [address] [place] [address] NT Pro BNPon 12-31-2018 Protein mass conc 61 pg/mL Normal <125 [facility] Comment on above: Performed By: #### N TBNP #### [facility] [address] [place] [address] NURSING PROGon 12-31-2018 Protein mass conc HNO ID: [id number] Author: Sirisha (Rn) JANELLE Ryan Service: Nursing Author Type: Registered Nurse Type: Nursing Progress Note Filed: 12/31/2018 3:10 PM Note Text: Nursing Progress Note Patient Name: Kale Sheehan Patient Location: [facility] -2 Daily Note: Pt AANDO x 3, calm [...] note was completed by: Sirisha Ryan RN [facility] Protein mass conc HNO ID: [id number] Author: Ita (Rn) JANELLE Yang Service: Nursing Author Type: Registered Nurse Type: Nursing Progress Note Filed: 12/31/2018 5:13 AM Note Text: Nursing Progress Note Patient Name: Kale Sheehan Patient Location: [place] [id number]/[facility] -2 0000- admission/assessment complete and documented. Pt a/o x 3 spheres, VSS, denies c/o pain or discomfort at this time. Lungs diminished with expiratory wheezing throughout, pt states a little SOB at rest, o2 sats 95% R/A. [...] note was completed by: Ita Yang RN Normal [facility] Staph aureus PCRon 9 MRSA PCR Negative [facility] Comment on above: Performed By: #### C BC, CK, CMP #### [facility] [address] [place] [address] S aureus Spec Source Nasal Normal [facility] Comment on above: Performed By: #### C BC, CK, CMP #### [facility] [address] [place] [address] Staph aureus PCR Negative [facility] Comment on above: Performed By: #### C BC, CK, CMP #### [facility] [address] [place] [address] Troponin Ton 12-31-2018 Troponin T.cardiac mass conc ug/L Normal 0.000-0.029 [facility] Comment on above: Performed By: #### T NT #### [facility] [address] [place] [address] Urine Strep Pneumo FOR WEST USE ONLYon 12-31-2018 Urine Strep Pneumo FOR WEST USE ONLY Negative Normal Negative [facility] Comment on above: Result Comment: Stre p Pneumo vaccine may cause a false positive Strep Pneumo antigen result in the 48 hours following vaccine. Performed By: #### C BC, CK, CMP #### [facility] [address] [place] [address] XR CHEST 2V FRONTAL/LATon XR CHEST 2V [...] IMPRESSION: PULMONARY EMPHYSEMA. NO ACUTE RADIOGRAPHIC ABNORMALITY. Melt Superintendant: PSCB Transcribe Date/Time: Dec 30 2018 10:42P Dictated by : GARCÍA DANIELLE MD This examination was interpreted and the report reviewed and electronically signed by: GARCÍA DANIELLE MD on Dec 30 2018 10:43PM EST [id number] Normal [facility] Basic Panelon 03-12-2018 Anion gap 5 mmol/L Low 8-20 [facility] Comment on above: Performed By: #### L CBCD ####[place] [address] BUN (urea nitrogen) 17 mg/dL Normal 7-25 [facility] Comment on above: Performed By: #### L CBCD ####[place] [address] BUN/Creatinine Ratio 16 mg/mg Normal 10-20 [facility] Comment on above: Performed By: #### L CBCD ####[place] [address] Calcium 9.0 mg/dL Normal 8.5-10.1 [facility] Comment on above: Performed By: #### L CBCD ####[place] [address] Chloride 108 mmol/L High 98-107 [facility] Comment on above: Performed By: #### L CBCD ####[place] [address] CO2 27 mmol/L Normal 21-32 [facility] Comment on above: Performed By: #### L CBCD ####[place] [address] Creatinine 1.07 mg/dL Normal 0.67-1.17 [facility] Comment on above: Performed By: #### L CBCD ####[place] [address] [place] [address] Glucose mass conc 111 mg/dL High 70-99 [facility] Comment on above: Performed By: #### L CBCD ####[facility] [place] [address] Potassium molar conc 3.8 mmol/L Normal 3.5-5.1 [facility] Comment on above: Performed By: #### L CBCD ####[place] [address] Sodium 136 mmol/L Normal 136-145 [facility] Comment on above: Performed By: #### L CBCD ####[place] [address] CHEST 1 VIEWon 03-12-2018 CHEST 1 VIEW Performed at [facility] APPROVED BY: VALENTIN HAYWOOD MD EXAM: Single [...] 1. COPD.2. No active cardiopulmonary disease. Normal [facility] Hemogram/Diffon 03-12-2018 Abs. Baso 0.02 thou/cmm Normal 0.00-0.08 [facility] Comment on above: Performed By: #### L CBCD ####[place] [address] Abs. Otero 1.05 thou/cmm High 0.20-1.00 [facility] Comment on above: Performed By: #### L CBCD ####[place] [address] Abs. Neut (ANC) 4.48 thou/cmm Normal 3.00-5.67 [facility] Comment on above: Performed By: #### L CBCD ####[place] [address] Basophils/100 WBC Auto (Bld) 0.3 % Normal [facility] Comment on above: Performed By: #### L CBCD ####[facility] [place], [place] [address] Eosinophils 0.36 thou/cmm Normal 0.00-0.41 [facility] Comment on above: Performed By: #### L CBCD ####[address] [address] Eosinophils/100 leukocytes 4.9 % Normal [facility] Comment on above: Performed By: #### L CBCD ####[address] [address] Erythrocyte distribution width Auto Ratio (RBC) 12.3 % Normal 11.5-15.9 [facility] Comment on above: Performed By: #### L CBCD ####[address] [address] Erythrocytes (RBC) 4.40 mil/cmm Low 4.60-6.20 [facility] Comment on above: Performed By: #### L CBCD ####[address] [address] Hematocrit (HCT) 41.6 % Low 42.0-52.0 [facility] Comment on above: Performed By: #### L CBCD ####[address] [address] Hemoglobin mass conc (Bld) 14.1 g/dL Normal 14.0-18.0 [facility] Comment on above: Performed By: #### L CBCD ####[address] [address] Lymphocytes 1.49 thou/cmm Low 1.50-3.65 [facility] Comment on above: Performed By: #### L CBCD ####[address] [address] Lymphocytes/100 leukocytes 20.2 % Normal [facility] Comment on above: Performed By: #### L CBCD ####[address] [address] MCH 32.0 pg High 27.0-31.0 [facility] Comment on above: Performed By: #### L CBCD ####[facility] [place], [place] [address] MCHC mass conc (RBC) 33.9 % Normal 32.0-36.0 [facility] Comment on above: Performed By: #### L CBCD ####[address] [address] MCV 94.5 fL High 80.0-94.0 [facility] Comment on above: Performed By: #### L CBCD ####[address] [address] Monocytes/100 leukocytes 14.2 % Normal [facility] Comment on above: Performed By: #### L CBCD ####[address] [address] Platelet mean volume (PMV) 10.9 fL High 7.1-10.5 [facility] Comment on above: Performed By: #### L CBCD ####[address] [address] Platelets 184 thou/cmm Normal 150-400 [facility] Comment on above: Performed By: #### L CBCD ####[address] [address] Seg Neutrophil 60.4 % Normal [facility] Comment on above: Performed By: #### L CBCD ####[address] [address] WBC (Leukocytes) 7.4 thou/cmm Normal 4.8-10.8 [facility] Comment on above: Performed By: #### L CBCD ####[address] [address] MDRD eGFRon 03-12-2018 eGFR (non-black) mL/min/{1.73_m2} Normal >60mL/m in/1.7 3m2 [facility] Comment on above: Result Comment: If t he patient is , multiply the result by 1.210. Performed By: #### L CBCD ####[address] [address] Troponin Ion 03-12-2018 Troponin I.cardiac mass conc ng/mL Normal <=0.07 [facility] Comment on above: Performed By: #### L CBCD ####[place] [address] Basic Panelon 02-08-2018 Anion gap 10 mmol/L Normal 8-20 [facility] Comment on above: Performed By: #### L P8 ####[place] [address] BUN (urea nitrogen) 15 mg/dL Normal 7-25 [facility] Comment on above: Performed By: #### L P8 ####[place] [address] BUN/Creatinine Ratio 16 mg/mg Normal 10-20 [facility] Comment on above: Performed By: #### L P8 ####[place] [address] Calcium 9.2 mg/dL Normal 8.5-10.1 [facility] Comment on above: Performed By: #### L P8 ####[place] [address] Chloride 104 mmol/L Normal 98-107 [facility] Comment on above: Performed By: #### L P8 ####[place] [address] CO2 24 mmol/L Normal 21-32 [facility] Comment on above: Performed By: #### L P8 ####[place] [address] Creatinine 0.97 mg/dL Normal 0.67-1.17 [facility] Comment on above: Performed By: #### L P8 ####[place] [address] Glucose mass conc 117 mg/dL High 70-99 [facility] Comment on above: Performed By: #### L P8 ####[place] [address] Potassium molar conc 4.3 mmol/L Normal 3.5-5.1 [facility] Comment on above: Performed By: #### L P8 ####[facility] [place] [address] Sodium 133 mmol/L Low 136-145 [facility] Comment on above: Performed By: #### L P8 ####[place] [address] CHEST 2 VIEWSon 02-08-2018 CHEST 2 VIEWS Performed at [facility] APPROVED BY: Cornelius Carter MD EXAMINATION: CHEST RADIOGRAPH (2 VIEW FRONTAL & LATERAL) Clinical History: Cough, new onset MQ: XC2_5Comparison: 09/28/2017 RESULT: Lines, tubes, and devices: None. Lungs and pleura: No consolidation. No lung mass. No pleural effusion. Advanced degree of COPD changes Cardiomediastinal silhouette: Normal cardiomediastinal silhouette. Other: . IMPRESSION: No acute radiographic abnormality. Advanced degree of COPD changes Normal [facility] Cult and Smr Respiratoryon 0 02-08-2018 Cult and Smr Respiratory Test performed at [facility] Normal oropharyngeal ramirez present. Few WBC Few Mixed ramirez <25 epithelial cells per low power field Normal [facility] Comment on above: Performed By: #### L CBCD ####[place] [address] Hemogram/Diffon 02-08-2018 Abs. Baso 0.02 thou/cmm Normal 0.00-0.08 [facility] Comment on above: Performed By: #### L CBCD ####[place] [address] Abs. Otero 0.70 thou/cmm Normal 0.20-1.00 [facility] Comment on above: Performed By: #### L CBCD ####[place] [address] Abs. Neut 3.94 thou/cmm Normal 3.00-5.67 [facility] Comment on above: Performed By: #### L CBCD ####[place] [address] Basophils/100 WBC Auto (Bld) 0.3 % Normal [facility] Comment on above: Performed By: #### L CBCD ####[facility] [place], [place] [address] Eosinophils 0.54 thou/cmm High 0.00-0.41 [facility] Comment on above: Performed By: #### L CBCD ####[address] [address] Eosinophils/100 leukocytes 8.6 % Normal [facility] Comment on above: Performed By: #### L CBCD ####[address] [address] Erythrocyte distribution width Auto Ratio (RBC) 11.9 % Normal 11.5-15.9 [facility] Comment on above: Performed By: #### L CBCD ####[address] [address] Erythrocytes (RBC) 4.76 mil/cmm Normal 4.60-6.20 [facility] Comment on above: Performed By: #### L CBCD ####[address] [address] Hematocrit (HCT) 44.7 % Normal 42.0-52.0 [facility] Comment on above: Performed By: #### L CBCD ####[place] [address] Hemoglobin mass conc (Bld) 15.1 g/dL Normal 14.0-18.0 [facility] Comment on above: Performed By: #### L CBCD ####[place] [address] Lymphocytes 1.10 thou/cmm Low 1.50-3.65 [facility] Comment on above: Performed By: #### L CBCD ####[address] [address] Lymphocytes/100 leukocytes 17.5 % Normal [facility] Comment on above: Performed By: #### L CBCD ####[address] [address] MCH 31.7 pg High 27.0-31.0 [facility] Comment on above: Performed By: #### L CBCD ####[facility] [place], [place] [address] MCHC mass conc (RBC) 33.8 % Normal 32.0-36.0 [facility] Comment on above: Performed By: #### L CBCD ####[address] [address] MCV 93.9 fL Normal 80.0-94.0 [facility] Comment on above: Performed By: #### L CBCD ####[address] [address] Monocytes/100 leukocytes 11.1 % Normal [facility] Comment on above: Performed By: #### L CBCD ####[address] [address] Platelet mean volume (PMV) 11.2 fL High 7.1-10.5 [facility] Comment on above: Performed By: #### L CBCD ####[address] [address] Platelets 186 thou/cmm Normal 150-400 [facility] Comment on above: Performed By: #### L CBCD ####[address] [address] Seg Neutrophil 62.5 % Normal [facility] Comment on above: Performed By: #### L CBCD ####[address] [address] WBC (Leukocytes) 6.3 thou/cmm Normal 4.8-10.8 [facility] Comment on above: Performed By: #### L CBCD ####[address] [address] MDRD eGFRon 02-08-2018 eGFR (non-black) mL/min/{1.73_m2} Normal >60mL/m in/1.7 3m2 [facility] Comment on above: Result Comment: If t he patient is , multiply the result by 1.210. Performed By: #### L CBCD ####[address] [address] Troponin Ion 02-08-2018 Troponin I.cardiac mass conc ng/mL Normal <=0.07 [facility] Comment on above: Performed By: #### L TRP ####[place] [address] CHEST 1 VIEWon 09-28-2017 CHEST 1 VIEW Performed at [facility] APPROVED BY: Edis Weaver MD EXAMINATION: CHEST RADIOGRAPH (SINGLE VIEW AP OR PA) Clinical History: Cough.M: XC1_3Comparison: None. RESULT: Lines, tubes, and devices: None. Lungs and pleura: No acute infiltrates or effusions. Cardiomediastinal silhouette: Normal cardiomediastinal silhouette. Other: None IMPRESSION: No acute radiographic abnormality. Normal [facility] Comprehensive Panelon 2017 Albumin 4.3 g/dL Normal 3.4-5.0 [facility] Comment on above: Performed By: #### L P14 ####[place] [address] Alkaline phosphatase (ALP) 81 U/L Normal 46-116 [facility] Comment on above: Performed By: #### L P14 ####[place] [address] ALT-SGPT Blood 37 U/L Normal 12-78 [facility] Comment on above: Performed By: #### L P14 ####[place] [address] Anion gap 9 mmol/L Normal 8-20 [facility] Comment on above: Performed By: #### L P14 ####[place] [address] AST-SGOT Blood 27 U/L Normal 15-37 [facility] Comment on above: Performed By: #### L P14 ####[place] [address] Bilirubin Ql (U) 0.4 mg/dL Normal 0.2-1.0 [facility] Comment on above: Performed By: #### L P14 ####[place] [address] BUN (urea nitrogen) 15 mg/dL Normal 7-25 [facility] Comment on above: Performed By: #### L P14 ####[facility] [place], [place] [address] BUN/Creatinine Ratio 15 mg/mg Normal 10-20 [facility] Comment on above: Performed By: #### L P14 ####[facility] [place], [place] [address] Calcium 9.6 mg/dL Normal 8.5-10.1 [facility] Comment on above: Performed By: #### L P14 ####[facility] [place], [place] [address] Chloride 105 mmol/L Normal 98-107 [facility] Comment on above: Performed By: #### L P14 ####[place] [address] CO2 27 mmol/L Normal 21-32 [facility] Comment on above: Performed By: #### L P14 ####[place] [address] Creatinine 1.02 mg/dL Normal 0.67-1.17 [facility] Comment on above: Performed By: #### L P14 ####[address] [address] Glucose mass conc 91 mg/dL Normal 70-99 [facility] Comment on above: Performed By: #### L P14 ####[address] [address] Potassium molar conc 4.2 mmol/L Normal 3.5-5.1 [facility] Comment on above: Performed By: #### L P14 ####[address] [address] Protein 7.5 g/dL Normal 6.4-8.2 [facility] Comment on above: Performed By: #### L P14 ####[place] [address] Sodium 137 mmol/L Normal 136-145 [facility] Comment on above: Performed By: #### L P14 ####[place] [address] Hemogram/Diffon 09-28-2017 Abs. Baso 0.04 thou/cmm Normal 0.00-0.08 [facility] Comment on above: Performed By: #### L CBCD ####[place] [address] Abs. Otero 1.16 thou/cmm High 0.20-1.00 [facility] Comment on above: Performed By: #### L CBCD ####[place] [address] Abs. Neut 5.44 thou/cmm Normal 3.00-5.67 [facility] Comment on above: Performed By: #### L CBCD ####[place] [address] Basophils/100 WBC Auto (Bld) 0.4 % Normal [facility] Comment on above: Performed By: #### L CBCD ####[place] [address] Eosinophils 0.56 thou/cmm High 0.00-0.41 [facility] Comment on above: Performed By: #### L CBCD ####[place] [address] Eosinophils/100 leukocytes 6.2 % Normal [facility] Comment on above: Performed By: #### L CBCD ####[place] [address] Erythrocyte distribution width Auto Ratio (RBC) 12.3 % Normal 11.5-15.9 [facility] Comment on above: Performed By: #### L CBCD ####[place] [address] Erythrocytes (RBC) 4.32 mil/cmm Low 4.60-6.20 [facility] Comment on above: Performed By: #### L CBCD ####[place] [address] Hematocrit (HCT) 41.0 % Low 42.0-52.0 [facility] Comment on above: Performed By: #### L CBCD ####[place] [address] Hemoglobin mass conc (Bld) 14.1 g/dL Normal 14.0-18.0 [facility] Comment on above: Performed By: #### L CBCD ####[address] [address] Lymphocytes 1.80 thou/cmm Normal 1.50-3.65 [facility] Comment on above: Performed By: #### L CBCD ####[address] [address] Lymphocytes/100 leukocytes 20.0 % Normal [facility] Comment on above: Performed By: #### L CBCD ####[place] [address] MCH 32.6 pg High 27.0-31.0 [facility] Comment on above: Performed By: #### L CBCD ####[address] [address] MCHC mass conc (RBC) 34.4 % Normal 32.0-36.0 [facility] Comment on above: Performed By: #### L CBCD ####[place] [address] MCV 94.9 fL High 80.0-94.0 [facility] Comment on above: Performed By: #### L CBCD ####[address] [address] Monocytes/100 leukocytes 12.9 % Normal [facility] Comment on above: Performed By: #### L CBCD ####[place] [address] Platelet mean volume (PMV) 11.1 fL High 7.1-10.5 [facility] Comment on above: Performed By: #### L CBCD ####[place] [address] Platelets 176 thou/cmm Normal 150-400 [facility] Comment on above: Performed By: #### L CBCD ####[place] [address] Seg Neutrophil 60.5 % Normal [facility] Comment on above: Performed By: #### L CBCD ####[address] [address] WBC (Leukocytes) 9.0 thou/cmm Normal 4.8-10.8 [facility] Comment on above: Performed By: #### L CBCD ####[address] [address] MDRD eGFRon 09-28-2017 eGFR (non-black) mL/min/{1.73_m2} Normal >60mL/m in/1.7 3m2 [facility] Comment on above: Result Comment: If t he patient is , multiply the result by 1.210. Performed By: #### L GFR ####[place] [address] Magnesium Bloodon 09-28-2017 Magnesium 2.0 mg/dL Normal 1.8-2.4 [facility] Comment on above: Performed By: #### L MAG ####[place] [address] N-terminal Pro-BNPon 018 BNP 55.1 pg/mL Normal [facility] Comment on above: Result Comment: Acut e CHF Rule-in <50 yrs old >= 450 pg/ml >50 yrs old >= 900 pg/ml Abnormal Pro-BNP All patients >=300 pg/ml Performed By: #### L PBNP ####[address] [address] Troponin Ion 09-28-2017 Troponin I.cardiac mass conc ng/mL Normal <=0.07 [facility] Comment on above: Performed By: #### L TRP ####[address] [address] Vital Signs Date Time Vital Sign Value Performing Clinician Sawyer narayan 05-01-2025 08:43-0400 Body mass index (BMI) [Ratio] 31.1 kg/m2 Dr. Alexsander Casanova MD Work Phone: [facility] 05-01-2025 08:43-0400 Body temperature 97.4 [degF] Dr. Alexsander Casanova MD Work Phone: [facility] 05-01-2025 08:43-0400 Body weight 90.[address] Alexsander Casanova MD Work Phone: [facility] 05-01-2025 08:43-0400 Diastolic blood pressure 85 mm[Hg] Dr. Alexsander Casanova MD Work Phone: 6(381)653-056172 [place] [address] 05-01-2025 08:43-0400 Heart rate 84 /min Dr. Alexsander Casanova MD Work Phone: 1(660)262-523872 [place] [address] 05-01-2025 08:43-0400 Respiratory rate 16 /min Dr. Alexsander Casanova MD Work Phone: 6(973)832-305137 [address] 05-01-2025 08:43-0400 SaO2% (BldA) [Mass fraction] 98 % Dr. Alexsander Casanova MD Work Phone: 7(157)167-764072 [place] [address] 05-01-2025 08:43-0400 Systolic blood pressure 124 mm[Hg] Dr. Alexsander Casanova MD Work Phone: 5(478)[phone] [address] 01-02-2025 07:56-0400 Body height 170.[address] Alexsander Casanova MD Work Phone: 7(308)201-745927 [place] [address] 01-02-2025 07:56-0400 Body mass index (BMI) [Ratio] 32.2 kg/m2 Dr. Alexsander Casanova MD Work Phone: 3(447)258-435672 [place] [address] 01-02-2025 07:56-0400 Body temperature 97.4 [degF] Dr. Alexsander Casanova MD Work Phone: 0(690)749-921172 [place] [address] 01-02-2025 07:56-0400 Body weight 93.[address] Alexsander Casanova MD Work Phone: 2(504)694-291127 [place] [address] 01-02-2025 07:56-0400 Diastolic blood pressure 87 mm[Hg] Dr. Alexsander Casanova MD Work Phone: 3(206)230-737837 [address] 01-02-2025 07:56-0400 Heart rate 84 /min Dr. Alexsadner Casanova MD Work Phone: [facility] 01-02-2025 07:56-0400 Respiratory rate 18 /min Dr. Alexsander Casanova MD Work Phone: [facility] 01-02-2025 07:56-0400 SaO2% (BldA) [Mass fraction] 97 % Dr. Alexsander Casanova MD Work Phone: [facility] 01-02-2025 07:56-0400 Systolic blood pressure 134 mm[Hg] Dr. Alexsander Casanova MD Work Phone: [facility] 09-07-2023 05:53-0500 Body height 170.[address] Alexsander Casanova Work Phone: [facility] 09-07-2023 05:53-0500 Body mass index (BMI) [Ratio] 30.5 kg/m2 Dr. Alexsander Casanova Work Phone: [facility] 09-07-2023 05:53-0500 Body temperature 95.1 [degF] Dr. Alexsander Casanova Work Phone: [facility] 09-07-2023 05:53-0500 Body weight 88.[address] Alexsander Casanova Work Phone: [facility] 09-07-2023 05:53-0500 Diastolic blood pressure 86 mm[Hg] Dr. Alexsander Casanova Work Phone: [facility] 09-07-2023 05:53-0500 Heart rate 79 /min Dr. Alexsander Casanova Work Phone: [facility] 09-07-2023 05:53-0500 Respiratory rate 20 /min Dr. Alexsander Casanova Work Phone: [facility] 09-07-2023 05:53-0500 SaO2% (BldA) [Mass fraction] 99 % Dr. Alexsander Casanova Work Phone: [facility] 09-07-2023 05:53-0500 Systolic blood pressure 126 mm[Hg] Dr. Alexsander Casanova Work Phone: [facility] 08-12-2022 12:47-0500 Body height 170.[address] Alexsander Casanova Work Phone: [facility] 08-12-2022 12:47-0500 Body mass index (BMI) [Ratio] 30.2 kg/m2 Dr. Alexsander Casanova Work Phone: [facility] 08-12-2022 12:47-0500 Body weight 87.[address] Alexsander Casanova Work Phone: [facility] 08-12-2022 12:47-0500 Body temperature 98.2 [degF] Dr. Alexsander Casanova Work Phone: [facility] 08-12-2022 12:47-0500 Diastolic blood pressure 85 mm[Hg] Dr. Alexsander Casanova Work Phone: [facility] 08-12-2022 12:47-0500 Heart rate 81 /min Dr. Alexsander Casanova Work Phone: [facility] 08-12-2022 12:47-0500 Respiratory rate 16 /min Dr. Alexsander Casanova Work Phone: [facility] 08-12-2022 12:47-0500 SaO2% (BldA) [Mass fraction] 98 % Dr. Alexsander Casanova Work Phone: [facility] 08-12-2022 12:47-0500 Systolic blood pressure 128 mm[Hg] Dr. Alexsander Casanova Work Phone: [facility] 06-23-2022 10:31-0400 Body temperature 97.8 [degF] Dr. Alexsander Casanova Work Phone: [facility] Work Phone: 06-23-2022 10:31-0400 Diastolic blood pressure 82 mm[Hg] Dr. Alexsander Casanova Work Phone: [facility] Work Phone: 06-23-2022 10:31-0400 Heart rate 71 /min Dr. Alexsander Casanova Work Phone: [facility] Work Phone: 06-23-2022 10:31-0400 Respiratory rate 16 /min Dr. Alexsander Casanova Work Phone: [facility] Work Phone: 06-23-2022 10:31-0400 SaO2% (BldA) [Mass fraction] 100 % Dr. Alexsander Casanova Work Phone: [facility] Work Phone: 06-23-2022 10:31-0400 Systolic blood pressure 122 mm[Hg] Dr. Alexsander Casanova Work Phone: [facility] Work Phone: 06-23-2022 09:31-0400 Body height 170.[address] Alexsander Casanova Work Phone: [facility] Work Phone: 06-23-2022 09:31-0400 Body mass index (BMI) [Ratio] 31.1 kg/m2 Dr. Alexsander Casanova Work Phone: [facility] Work Phone: 06-23-2022 09:31-0400 Body weight [address] Alexsander Casanova Work Phone: [facility] Work Phone: 05-10-2022 11:35-0400 Body temperature 97.3 [degF] Dr. Alexsander Casanova Work Phone: [facility] Work Phone: 05-10-2022 11:35-0400 Diastolic blood pressure 75 mm[Hg] Dr. Alexsander Casaonva Work Phone: [facility] Work Phone: 05-10-2022 11:35-0400 Heart rate 72 /min Dr. Alexsander Casanova Work Phone: [facility] Work Phone: 05-10-2022 11:35-0400 Respiratory rate 16 /min Dr. Alexsander Casanova Work Phone: [facility] Work Phone: 05-10-2022 11:35-0400 SaO2% (BldA) [Mass fraction] 97 % Dr. Alexsander Casanova Work Phone: [facility] Work Phone: 05-10-2022 11:35-0400 Systolic blood pressure 112 mm[Hg] Dr. Alexsander Casanova Work Phone: [facility] Work Phone: 05-10-2022 10:20-0400 Body height 170.[address] Alexsander Casanova Work Phone: [facility] Work Phone: 05-10-2022 10:20-0400 Body mass index (BMI) [Ratio] 30.7 kg/m2 Dr. Alexsander Casanova Work Phone: [facility] Work Phone: 05-10-2022 10:20-0400 Body weight [address] Alexsander Casanova Work Phone: [facility] Work Phone: 03-31-2022 15:08-0400 Body mass index (BMI) [Ratio] 30.4 kg/m2 Dr. Alexsander Casanova Work Phone: [facility] Work Phone: 03-31-2022 15:08-0400 Body temperature 97.5 [degF] Dr. Alexsander Casanova Work Phone: [facility] Work Phone: 03-31-2022 15:08-0400 Body weight 87.[address] Alexsander Casanova Work Phone: [facility] Work Phone: 03-31-2022 15:08-0400 Diastolic blood pressure 67 mm[Hg] Dr. Alexsander Casanova Work Phone: [facility] Work Phone: 03-31-2022 15:08-0400 Heart rate 80 /min Dr. Alexsander Casanova Work Phone: [facility] Work Phone: 03-31-2022 15:08-0400 Respiratory rate 16 /min Dr. Alexsander Casanova Work Phone: [facility] Work Phone: 03-31-2022 15:08-0400 SaO2% (BldA) [Mass fraction] 98 % Dr. Alexsander Casanova Work Phone: [facility] Work Phone: 03-31-2022 15:08-0400 Systolic blood pressure 99 mm[Hg] Dr. Alexsander Casanova Work Phone: [facility] Work Phone: 01-27-2022 12:36-0400 Body height 170.[address] Marcelo Morgan Work Phone: [facility] Work Phone: 01-27-2022 12:36-0400 Body mass index (BMI) [Ratio] 29.7 kg/m2 Dr. Marcelo Morgan Work Phone: [facility] Work Phone: 01-27-2022 12:36-0400 Body temperature 98.9 [degF] Dr. Marcelo Morgan Work Phone: [facility] Work Phone: 01-27-2022 12:36-0400 Body weight 86.[address] Marcelo Morgan Work Phone: [facility] Work Phone: 01-27-2022 12:36-0400 Diastolic blood pressure 86 mm[Hg] Dr. Marcelo Morgan Work Phone: [facility] Work Phone: 01-27-2022 12:36-0400 Heart rate 90 /min Dr. Marcelo Morgan Work Phone: [facility] Work Phone: 01-27-2022 12:36-0400 Respiratory rate 19 /min Dr. Marcelo Morgan Work Phone: [facility] Work Phone: 01-27-2022 12:36-0400 SaO2% (BldA) [Mass fraction] 92 % Dr. Marcelo Morgan Work Phone: [facility] Work Phone: 01-27-2022 12:36-0400 Systolic blood pressure 122 mm[Hg] Dr. Marcelo Morgan Work Phone: [facility] Work Phone: 12-11-2021 14:00-0400 Body mass index (BMI) [Ratio] 30.4 kg/m2 Dr. Marcelo Morgan Work Phone: [facility] Work Phone: 12-11-2021 14:00-0400 Body temperature 98.2 [degF] Dr. Marcelo Morgan Work Phone: [facility] Work Phone: 12-11-2021 14:00-0400 Body weight 87.[address] Marcelo Morgan Work Phone: [facility] Work Phone: 12-11-2021 14:00-0400 Diastolic blood pressure 80 mm[Hg] Dr. Marcelo Morgan Work Phone: [facility] Work Phone: 12-11-2021 14:00-0400 Heart rate 75 /min Dr. Marcelo Morgan Work Phone: [facility] Work Phone: 12-11-2021 14:00-0400 Respiratory rate 19 /min Dr. Marcelo Morgan Work Phone: [facility] Work Phone: 12-11-2021 14:00-0400 SaO2% (BldA) [Mass fraction] 98 % Dr. Marcelo Morgan Work Phone: [facility] Work Phone: 12-11-2021 14:00-0400 Systolic blood pressure 116 mm[Hg] Dr. Marcelo Morgan Work Phone: [facility] Work Phone: Encounters Encounter Date Encounter Type Care Provider Facility Start: 07-17-2025 ambulatory Alexsander Delvalle y:[facility] Start: 06-20-2025 End: 06-20-[address] Alexsander Casanova MD Work Phone: -Ultrasound [facility] Start: 06-20-2025 End: 06-20-[address] Alexsander Casanova MD -Ultrasound [facility] Work Phone: Start: 06-20-2025 End: 06-20-2025 ambulatory Alexsander Casanova Facility:[facility] Start: 06-13-2025 End: 06-13-[address] Alexsander Casanova MD Work Phone: -Laboratory [facility] Start: 06-13-2025 End: 06-13-[address] Alexsander Casanova MD -Laboratory [facility] Start: 06-13-2025 End: 06-13-2025 ambulatory Alexsander Casanova Facility:[facility] Start: 05-01-2025 End: 05-01-2025 Patient encounter procedure Elissa MALAVE -[facility] Work Phone: Start: 05-01-2025 End: 05-01-[address] Alexsander Casanova MD Work Phone: -[facility] Start: 04-15-2025 End: 04-15-[address] Alexsander Casanova MD Work Phone: -[facility] Start: 04-15-2025 End: 04-15-2025 Patient encounter procedure Elissa West MUD TEMPERER-C -Sleep Lab Work Phone: Start: 04-15-2025 End: 04-15-2025 ambulatory Elissa West MUD TEMPERER Facility:[facility] Start: 01-02-2025 End: 01-02-2025 Patient encounter procedure Elissa West MUD TEMPERER-C -[facility] Work Phone: Start: 01-02-2025 End: 01-02-2025 ambulatory Alexsander Casanova Facility:[facility] Start: 12-26-2024 End: 12-26-[address] Alexsander Casanova MD Work Phone: [facility] Work Phone: Start: 12-26-2024 End: 12-26-2024 Patient encounter procedure Elissa West MUD TEMPERER-C -Cat Scan, [facility] Work Phone: Start: 12-26-2024 End: 12-26-2024 ambulatory Elissa West MUD TEMPERER Facility:[facility] Start: 09-07-2024 End: 09-07-[address] Alexsander Casanova MD -Ultrasound, [facility] Work Phone: Start: 09-07-2024 End: 09-07-2024 ambulatory Alexsander Casanova Facility:[facility] Start: 08-30-2024 End: 08-30-[address] Alexsander Casanova MD -Laboratory, [place] Work Phone: Start: 08-30-2024 End: 08-30-2024 ambulatory Alexsander Casanova Facility:[facility] Start: 11-29-2023 End: 11-29-[address] Alexsander Casanova Work Phone: [facility] Work Phone: Start: 11-29-2023 End: 11-29-[address] lAexsander Casanova Work Phone: [facility]-Pulmonary Services/Neurology Work Phone: Start: 10-18-2023 End: 10-18-[address] Alexsander Casanova Work Phone: [facility] Work Phone: Start: 10-18-2023 End: 10-18-[address] Alexsander Casanova Work Phone: [facility] Work Phone: Start: 09-07-2023 End: 09-07-[address] Alexsander Casanova Work Phone: [facility] Work Phone: Start: 08-19-2023 End: 08-19-2023 ambulatory [facility] Work Phone: Start: 08-19-2023 End: 08-19-2023 Patient encounter procedure [facility], [facility] Work Phone: Start: 06-22-2023 End: 06-22-2023 Patient encounter procedure [facility] Start: 01-11-2023 End: 01-11-2023 ambulatory [facility] Work Phone: Start: 01-11-2023 End: 01-11-2023 Patient encounter procedure [facility] Start: 10-13-2022 End: 10-13-[address] Alexsander Casanova Work Phone: [facility] Work Phone: Start: 10-13-2022 End: 10-13-[address] Alexsander Casanova Work Phone: [facility] Start: 08-17-2022 End: 08-17-[address] Alexsander Casanova Work Phone: [facility] Work Phone: Start: 08-17-2022 End: 08-17-[address] Alexsander Casanova Work Phone: [facility] Start: 08-12-2022 End: 08-12-[address] Alexsander Casanova Work Phone: [facility] Medicine [facility] Start: 07-14-2022 End: 07-14-[address] Alexsander Casanova Work Phone: [facility] Work Phone: Start: 07-14-2022 End: 07-14-[address] Alexsander Casanova Work Phone: [facility] Start: 06-23-2022 Non-patient / Non-visit Dr. Silvana Casanova Work Phone: [facility] Start: 06-23-2022 End: 06-23-2022 Admission to same day surgery center Dr. Alexsander Casanova Work Phone: [facility]-End[facility] Start: 06-23-2022 End: 06-23-[address] Alexsander Casanova Work Phone: [facility] Work Phone: Start: 05-10-2022 Non-patient / Non-visit Dr. Silvana Casanova Work Phone: [facility] Start: 05-10-2022 End: 05-10-2022 Admission to same day surgery center Dr. Alexsander Casanova Work Phone: [facility] Start: 03-31-2022 End: 03-31-[address] Alexsander Casanova Work Phone: [facility] Start: 03-11-2022 End: 03-11-[address] Marcelo Morgan Work Phone: [facility] Start: 01-27-2022 End: 01-27-[address] [facility] Start: 01-11-2022 Refill Edis Guy MD Work Phone: Pulmonary Medicine Comment on above: Refill Request (Spir esme ) Start: 12-11-2021 End: 12-11-[address] Marcelo [facility] Start: 11-24-2021 Non-patient / Non-visit Dr. Dali Morgan Work Phone: [facility] Start: 11-24-2021 End: 11-24-[address] Marcelo Morgan Work Phone: [facility]/Neurology Start: 12-31-2018 End: 12-31-2018 Patient encounter procedure [facility] Procedures Date Procedure Procedure Detail Performing Clinician Start: 06-20-2025 US scan of bladder Dr. Alexsander Casanova MD Work Phone: Start: 06-13-2025 Urnls dip stick/tablet reagent auto microscopy Dr. Alexsander Casanova MD Work Phone: Start: 06-13-2025 Vitamin D, 25-hydroxy measurement Dr. Silvana Casanova MD Work Phone: Comment on above: Vitamin D StatusDeficiency: <20 ng/mL (5 0nmol/L)Insufficiency: 20-30 ng/mL (50-75 nmol/L)Sufficiency: 30-100 ng/mL (75-250 nmol/L)Toxicity: >100 ng/mL (>250 nmol/L) Start: 12-26-[address] Alexsander Casanova MD Work Phone: Start: 09-07-2024 US scan of bladder Dr. Alexsander Casanova MD Work Phone: Start: 08-19-2023 CT of chest Start: 08-17-[address] Alexsander Casanova Work Phone: Start: 06-23-[address] Alexsander del real Work Phone: Start: 05-10-[address] Alexsander Casanova Work Phone: Plan of Treatment Date Care Activity Detail Author Start: 06-23-2022 Egd transoral biopsy single/multiple EGD BIOPSY SINGLE/MULTIPLE [facility] Work Phone: Start: 06-23-2022 Patient discharge [facility] Work Phone: Start: 05-27-2022 Influenza vaccination INFLUENZA (Season Ended) [facility] Start: 05-10-2022 Colonoscopy w/biopsy single/multiple COLONOSCOPY AND BIOPSY [facility] Work Phone: Start: 05-10-2022 Colsc flx w/rmvl of tumor polyp lesion snare tq COLONOSCOPY W/LESION REMOVAL [facility] Work Phone: Start: 05-10-2022 Egd transoral biopsy single/multiple EGD BIOPSY SINGLE/MULTIPLE [facility] Work Phone: Start: 05-10-2022 Patient discharge [facility] Work Phone: Start: 12-30-2021 DIABETES SCREEN DIABETES SCREEN [facility] Start: 2021 ADVANCE DIRECTIVE DISCUSSION ADVANCE DIRECTIVE DISCUSSION [facility] Start: 2021 PNEUMOVAX AGE 65 AND OVER WITH 5YR LOOKBACK (#1) PNEUMOVAX AGE 65 AND OVER WITH 5YR LOOKBACK (#1) [facility] Start: 2011 PROSTATE CANCER SCREENING DISCUSSION PROSTATE CANCER SCREENING DISCUSSION [facility] Start: 2006 SHINGRIX VACCINE (1 of 2) SHINGRIX VACCINE (1 of 2) [facility] Start: 2001 COLOGUARD (FIT-DNA) COLOGUARD (FIT-DNA) [facility] Start: 2001 Colonoscopy COLONOSCOPY [facility] Start: 2001 COLORECTAL CANCER SCREENING COLORECTAL CANCER SCREENING [facility] Start: [address] COLONOGRAPHY [facility] Start: 2001 FECAL OCCULT BLOOD FECAL OCCULT BLOOD [facility] Start: 2001 SIGMOIDOSCOPY SIGMOIDOSCOPY [facility] Start: 1991 LIPID SCREEN LIPID SCREEN [facility] Start: 1975 Urine microalbumin profile DTAP,TDAP,TD (1 - Tdap) [facility] Start: 1974 ANNUAL PCP TEAM CHRONIC DISEASE VISIT ANNUAL PCP TEAM CHRONIC DISEASE VISIT [facility] Start: 1974 HEPATITIS C SCREENING HEPATITIS C SCREENING [facility] Start: 1974 HIV SCREENING HIV SCREENING [facility] Start: 1968 Adult depression screening assessment DEPRESSION SCREENING [facility] Start: 1961 COVID-19 VACCINE (1) COVID-19 VACCINE (1) [facility] Start: 1956 ABDOMINAL AORTIC ANEURYSM SCREENING [facility] Colonoscopy [facility] Work Phone: CT Chest [facility] Work Phone: CT Chest [facility] Exercise tolerance test [facility] Work Phone: Measurement of respiratory function [facility] Patient referral [facility] Work Phone: Immunizations Immunization Date Immunization Notes Care Provider [facility] 07-05-2018 influenza, seasonal, injectable Edis Guy MD Work Phone: [facility] Work Phone: 03-22-2016 pneumococcal conjuga te vaccine, 13 valent Edis Guy MD Work Phone: [facility] Work Phone: Payers Date Payer Category Payer Medicare [id number] 2024 Self-pay [id number] 2021 Private Health Insurance [facility] [employer] [id number] 2021-[facility] [phone] [address] [place] [address] [facility] [id number] 2018 Medicaid [employer] [facility] MEDICAID [id number] 2018-Present [phone] [address] [place] [address] Medicaid [id number] Medicaid [id number] Medicare [id number] Unknown [id number] Unknown [id number] Unknown VA AUTH REQUIR ED SEE NOTE [id number] Unknown [id number] Unknown [id number] Unknown [id number] Unknown [id number] Unknown [id number] Unknown [id number] Unknown [id number] Unknown [id number] Unknown [id number] Unknown [id number] Unknown [id number] Social History Date Type Detail Facility Start: 1976 Tobacco smoking stat us [facility] Smokes tobacco daily [facility] Start: 1976 History of tobacco use Cigarette Smo ker [facility] Start: 03-22-2019 Cigarettes smoked current (pack per day) - Reported 0.5 [facility] Start: 03-22-2019 Tobacco use and exposure Smokeless tobacco non-user [facility] Start: 04-28-2020 Alcohol intake Current non-dr auto body straightener of alcohol (finding) [facility] Start: 04-28-2020 Tobacco Comment Actively still smoking 1/2-1 PPD cigarettes, 04/28/2020, TO. [facility] Start: 1955 Sex Assigned At Not on file [facility] Start: 01-27-2022 End: 09-07-2023 Tobacco smoking status NHIS Unknown if ever smoked [facility] Start: 1955 Sex Assigned At Male [facility] Start: 12-13-2023 [facility] Start: 12-27-2024 Sex Male (finding) [facility] Sex Male [facility] Goals Date Patient Goal Desired Activity /State Mental Status Date Assessment Result Facility 06-23-2022 Cognitive function Voice/Name [facility] Work Phone: 05-10-2022 Cognitive function Voice/Name [facility] Work Phone: Clinical Notes 01-11-2022 to 06-23-2025 Note Date & Type Note Facility 06-23-2025 Radiology Diagnostic study note [facility] Imaging Services [address] [place], [place] [id number] Post Void Residual Bladder MR#: [id number] Acct: [id number] Name: KALE SHEEHAN Rep #: [id number] : 1955 M 69 From: Chau Miller DO PCP: Dr. Alexsander Casanova MD Status: RE G CLI Study:Post Void Residual Bladder Date of Exam : 06/20/25 Exam# [id number] Ordering Dr: Alexsander Casanova MD PROCEDURE: POST VOID RESIDUAL BLADDER 06/20/2025 REASON FOR EXAM: URINARY RETENTION TECHNIQUE: Procedure Code: USPVU Modality: US Procedure: POST VOID RESIDUAL BLADDER COMPARISON: Postvoid residual bladder exam dated 09/07/2024 FINDINGS: The prevoid urinary bladder measures 12.3 x 9.7 x 10.5 cm. Bladder wall thickness measures 3 mm. Prevoid urinary bladder volume is 653 mL. Contour of the bladder wall is smooth. There are no intraluminal masses. There are no stones identified. There is no Sanchez catheter. There is no right UVJ calculus. There is a right ureteral jet. There is an no left UVJ calculus. There is a left ureteral jet. Postvoid urinary bladder measures 8.9 x 7.0 x 8.5 cm. Postvoid urinary bladder volume is 276 mL. US/Post Void Residual Bladder IMPRESSION: Normal appearance to the urinary bladder. There is an abnormally large postvoidresidual measuring 276 mL. This puts the patient increased risk for UTIs and urinary reflux. Reading Location: [id number] CC: Dr. Alexsander Casanova MD ~ Melt Superintendant: Signed [facility] 05-01-2025 Evaluation note Diagnosis Onset Date Resolution Hypoxia acute May 01 2:36pm Asthma chronic May 01 2:36pm Smoking greater than 40 pack years chronic May 01, 2025 2:36pm Stage 3 severe COPD by GOLD classification chronic May 01, 2025 2:36pm [facility] Work Phone: 1(390) 277-193504-09-2025 Evaluation note* Diagnosis Onset Date Resolution Status Admit Date Hypoxia acute January 02 7:48am Asthma chronic January 02 7:48am Smoking greater than 40 pack years chronic January 02, 2025 7:48am Stage 3 severe COPD by GOLD classification chronic January 02, 2025 7:48am [facility] Work Phone: 1(979) 547-869304-09-2025 Evaluation note* Diagnosis Onset Date Resolution Status [...] GOLD classification chronic May 01, 2025 2:36pm [facility] Work Phone: 1(984) 211-485004-02-2025 Radiology Diagnostic study note [facility] Imaging Services [address] [place] [address] Lung Screening MR#: [id number] Acct: [id number] Name: KALE SHEEHAN Rep #: [id number] : 1955 M 69 From: Benigno Martinez MD PCP: Dr. Alexsander Casanova MD Status: RE G [facility] Study:Low Dose CT Lung Screening Date of Exam : 12/26/24 Exam# [id number] Ordering Dr: Ariadne West MUD TEMPERER MUD TEMPERER-C PROCEDURE: LOW DOSE CT LUNG SCREENING 12/26/2024 [...] use of iterative reconstruction technique). REFERENCE LINK: [facility] Lung-RADS RADIATION DOSE SUMMARY: CTDlvol: 4.02 mGy [...] LDCT. Other Significant Findings: None. Reading Location: [place] [address] CC: ANANDA West; Dr. Alexsander Casanova MD ~ Melt Superintendant: Signed [facility]04-18-2022 Miscellaneous Notes* Telephone Encounter - Dang Manriquez [...] scheduled at this time. Patient Phone numbers: [phone] (home) Request is for script(s) to be escript to pharmacy. Latisha Calvo [facility] Diagnosis Onset Date Resolution Status Oral thrush acute Smoking greater than 40 pack years acute Stage 3 severe COPD by GOLD classification chronic Stage 3 severe COPD by GOLD classification chronic [facility] Work Phone: Evaluation note* Diagnosis Onset Date Resolution Status Stage 3 severe COPD by GOLD classification chronic GERD (gastroesophageal reflux disease) acute Hx of colonic polyps acute Umbilical hernia without obs truction and without gangrene acute GERD (gastroesophageal reflux disease) acute Hx of colonic polyps acute [facility] Work Phone: Evaluation note* Diagnosis Onset Date Resolution Status GERD (gastroesophageal reflux disease) acute Hx of colonic polyps acute Umbilical hernia without obs truction and without gangrene acute GERD (gastroesophageal reflux disease) acute Hx of colonic polyps acute Abnormal findings on esophagogastroduodenoscopy (EGD) acute GERD (gastroesophageal reflux disease) acute [facility] Work Phone: Evaluation note* Diagnosis Onset Date Resolution Status GERD (gastroesophageal reflux disease) acute Hx of colonic polyps acute Abnormal findings on esophagogastroduodenoscopy (EGD) acute GERD (gastroesophageal reflux disease) acute Obesity (BMI 30.0-34.9) acut e Tobacco abuse acute Stage 3 severe COPD by GOLD classification [facility] Work Phone: evaluation note* Diagnosis Onset Date Resolution Status Obesity (BMI 30.0-34.9) acut e Tobacco abuse acute Stage 3 severe COPD by GOLD classification [facility] Work Phone: Evaluation noteNo assessment information available [facility] Work Phone: Evaluation note* Diagnosis Onset Date Resolution Status Asthma acute Stage 3 severe COPD by GOLD classification [facility] Work Phone: Reason for referral (narrative)No reason for referral [facility]: Summary Purpose Family History No Family History Records Found Relationship Condition Age at Onset Recorded Date/T shanel Not Specified Alcohol abuse Unknown Anemia Unknown Arthritis Unknown Cardiac disease Unknown Kidney disorder Unknown Myocardial infarction Unknown Disorder of respiratory system Unknown Advance Directives No Advanced Directives Records FoundDocuments on File Type Date Recorded Patient Vehicle Body Maker 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 Advance Directive(s) 12/30/2018 10:33 PM Advance Directive(s) 03/11/2018 10:34 PM Advance Directive(s) 02/08/2018 8:48 AM Advance Directive(s) 09/28/2017 7:05 PM Advance Directive Response Recorded Date/ Time Name of Medical Power of Messenger Office May 05, 2022 11:19am Living Will Yes May 05 11:19am Power of Messenger Office Yes May 05 11:19am Advance Directive Response Recorded Date/ Time Name of Medical Power of Messenger Office May 05, 2022 11:19am Name of Medical Power of Messenger Office SPOUSE June 18, 2022 2:51pm Living Will Yes June 18, 2022 2:51pm Power of Messenger Office Yes May 2:51pm Advance Directive Response Recorded Date/ Time Name of Medical Power of Messenger Office May 05, 2022 10:19am Name of Medical Power of Messenger Office SPOUSE June 18, 2022 1:51pm Living Will Yes June 18, 2022 1:51pm Power of Messenger Office Yes May 1:51pm Advance Directive Response Recorded Date/ Time Living Will Yes June 18, 2022 1:51pm Power of Messenger Office Yes May 1:51pm Advance Directive Response Recorded Date/ Time Living Will Yes June 18, 2022 2:51pm Power of Messenger Office Yes May 2:51pm Hospital Course Note HNO ID: [id number] Author: Graciela Mckeon Service: Hospital Medicine Author [...] GOLD classificati on May 01, 2025 2:36pm Chief Complaint Admit Date R09.02 - Hypoxemia April 15, 2025 12:4 2pm 3 M FU May 01, 2025 2:3 6pm Benign prostatic hyperplasia with lower urinary tr June 20, 2025 11:24am Reason for Visit Admit Date Hypoxia May 01, 2025 2:3 6pm Asthma [...] section and content) DATE CREATED AUTHOR 03/15/2018 [facility] DATE CREATED AUTHOR AUTHOR'S ORGANIZ ATION 01/02/2019 [facility] DATE CREATED AUTHOR AUTHOR'S ORGANIZ ATION 10/29/2021 [facility] DATE CREATED AUTHOR AUTHOR'S ORGANIZ ATION 07/16/2025 [facility] Source Comments (unrecognize d section and content) In the event this informatio n is protected by the Federal Confidentiality of Alcohol and Drug Abuse Patient Records regulations: The Federal rules restrict any use of the information to criminally investigate or prosecute any alcohol or drug abuse patient.[facility] Reason for Visit (unrecogniz ed section and content) Reason Comments Refill Request [facility] Care Teams (unrecognized sec tion and content) Tack Welder Relationship Specialty Start Date End Date Cliff Pastor [address] [place] [address] PCP - General Internal Medicine 12/30/18 Team Status: Active Member Role Status Dates Dr. Alexsander Casanova MD Primary Care Provider Active Team Status: Inactive Member Role Status Dates Dr. Alexsander Casanova MD Primary Care Provider Active Dr. Marcelo Morgan MD Attending Provider, Referring Pr ovider Active Team Status: Inactive Member Role Status Dates Dr. Alexsander Casanova MD Primary Care Provider Active Elissa West MUD TEMPERER, MUD TEMPERER-C Attending Provider, Referrin g Provider Active Team [...] MD Primary Care Provider Active Elissa West MUD TEMPERER, MUD TEMPERER-C Attending Provider Active Team Status: Inactive Member [...] 2024 End: December 26, 2024 Elissa West MUD TEMPERER, MUD TEMPERER-C Attending Provider Active Start: December 26, 2024 End: December 26, 2024 Elissa West MUD TEMPERER, MUD TEMPERER-C Referring Provider Active Start: December 26, 2024 End: December 26, 2024 Team Status: Active Member Role/Relationship Status Dates Dr. Alexsander Casanova MD Primary Care Provider Active Team Status: Inactive Member Role/Relationship Status Dates Dr. Alexsander Casanova MD Primary Care Provider Active Start: December 26, 2024 End: December 26, 2024 Elissa West MUD TEMPERER, MUD TEMPERER-C Attending Provider Active Start: December 26, 2024 End: December 26, 2024 Elissa West MUD TEMPERER, MUD TEMPERER-C Referring Provider Active Start: December 26, 2024 End: December 26, 2024 Team Status: Inactive Member Role/Relationship Status Dates Dr. Alexsander Casanova MD Primary Care Provider Active Start: January 02, 2025 End: January 02, 2025 Dr. Alexsander Casanova MD Referring Provider Active Start: January 02, 2025 End: January 02, 2025 Elissa West MUD TEMPERER, MUD TEMPERER-C Attending Provider Active Start: January 02, 2025 End: January 02, 2025 Team Status: Inactive Member Role/Relationship Status Dates Dr. Alexsander Casanova MD Primary Care Provider Active Start: April 15, 2025 End: April 15, 2025 Elissa West MUD TEMPERER, MUD TEMPERER-C Attending Provider Active Start: April 15, 2025 End: April 15, 2025 Elissa West MUD TEMPERER, MUD TEMPERER-C Referring Provider Active Start: April 15, 2025 End: April 15, 2025 Team Status: Inactive Member Role/Relationship Status Dates Dr. Alexsander Casanova MD Primary Care Provider Active Start: January 02, 2025 End: January 02, 2025 Dr. Alexsander Casanova MD Referring Provider Active Start: January 02, 2025 End: January 02, 2025 Elissa West MUD TEMPERER, MUD TEMPERER-C Attending Provider Active Start: January 02, 2025 End: January 02, 2025 Team Status: Inactive Member Role/Relationship Status Dates Dr. Alexsander Casanova MD Primary Care Provider Active Start: April 15, 2025 End: April 15, 2025 Elissa West MUD TEMPERER, MUD TEMPERER-C Attending Provider Active Start: April 15, 2025 End: April 15, 2025 Elissa West MUD TEMPERER, MUD TEMPERER-C Referring Provider Active Start: April 15, 2025 End: April 15, 2025 Team Status: Inactive Member Role/Relationship Status Dates Dr. Alexsander Casanova MD Primary Care Provider Active Start: May 01, 2025 End: May 01, 2025 Dr. Alexsander Casanova MD Referring Provider Active Start: May 01, 2025 End: May 01, 2025 Elissa West MUD TEMPERER, MUD TEMPERER-C Attending Provider Active Start: May 01, 2025 End: May 01, 2025 Team Status: Active Member Role/Relationship Status Dates Dr. Alexsander Casanova MD Primary care physician Active Team Status: Inactive Member Role/Relationship Status Dates Dr. Alexsander Casanova MD Primary care physician Active Start: April 15, 2025 End: April 15, 2025 Elissa West MUD TEMPERER, MUD TEMPERER-C Attending physician Active Start: April 15, 2025 End: April 15, 2025 Elissa West MUD TEMPERER, MUD TEMPERER-C Referring Provider Active Start: April 15, 2025 End: April 15, 2025 Team Status: Inactive Member Role/Relationship Status Dates Dr. Alexsander Casanova MD Primary care physician Active Start: May 01, 2025 End: May 01, 2025 Dr. Alexsander Casanova MD Referring Provider Active Start: May 01, 2025 End: May 01, 2025 Elissa West MUD TEMPERER, MUD TEMPERER-C Attending physician Active Start: May 01, 2025 End: May 01, 2025 Team Status: Inactive Member Role/Relationship Status Dates Dr. Alexsander Casanova MD Primary care physician Active Start: June 13, 2025 End: June 13, 2025 Dr. Alexsander Casanova MD Attending physician Active Start: June 13, 2025 End: June 13, 2025 Team Status: Active Member Role/Relationship Status Dates Dr. Alexsander Casanova MD Primary care physician Active Start: June 20, 2025 Dr. Alexsander Casanova MD Attending physician Active Start: June 20, 2025 Dr. Alexsander Casanova MD Referring Provider Active Start: June 20, 2025 Team Status: Inactive Member Role/Relationship Status Dates Dr. Alexsander Casanova MD Primary care physician Active Start: June 20, 2025 End: June 20, 2025 Dr. Alexsander Casanova MD Attending physician Active Start: June 20, 2025 End: June 20, 2025 Dr. Alexsander Casanova MD Referring Provider Active Start: June 20, 2025 End: June 20, 2025 FOR RECORDS PERTAINING TO PATIENTS WHO [...] BE BASED ON THE PRIMARY CLINICAL RECORDS. [facility]. provides no warranty or guarantee of the accuracy or completeness of information in this document.
--- NOTE | 2025-07-17 08:34 | PRE.ANES_ITS ---
ASA Classification* ASA Classification ASA Classification: 3 Assessment & Plan Anesthesia* Anesthesia Assessment Anesthesia Assessment: Discussed sedation and/or anesthesia options, risks, benefits, and alternatives with patient/parents/legal guardian/POA. Questions invited. The patient/parents/legal guardian/POA seems to understand and agrees to proceed with anesthesia plan. Reviewed the physical assessment, medical history, allergy history and patient home medications list prior to surgery/procedure/anesthetic and documented any changes. Performed airway and anesthesia risk assessments. Anesthesia Type Anesthesia Type: MAC Anesthesia Focused Assessment* Airway Assessment Mouth opens: >3 cm Mallampati Score: II Labs Anesthesia Preop lab: CBC WBC, (4.4-11.0) 7.6 K/mm3 06/13/25, 14: RBC, (4.6-6.2) 4.39 M/mm3 L 06/13/25, 14:09 Hgb, (13.0-16.5) 14.1 g/dL 06/13/25, 14: Hct, (40-54) 41.6 % 06/13/25, 14:09 Plt Count, (150-450) 191 K/mm3 06/13/25, 14:09 CHEMISTRY Potassium, (3.3-5.1) 4.1 mmol/L 06/13/25, 14:09 Sodium, (133-145) 141 mmol/L 06/13/25, 14:09 Magnesium, (1.5-2.2) 2.2 mg/dL 06/13/25, 14:09 BUN, (4-19) 10 mg/dL 06/13/25, 14:09 Creatinine, (0.70-1.20) 1.00 mg/dL 06/13/25, 14:09 Glucose, (70-99) 81 mg/dL 06/13/25, 14:09 TSH, (0.300-4.200) 2.540 uIU/mL 06/13/25, 14:09 COAG Pre-Assessment Diagnosis/Proposed Procedure Planned Operative Procedure(s): COLONOSCOPY-OA Anesthesia History 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 When Was Last Pacemaker Check QUESTION #4 FULL TEXT: You/Your Family Experience fever (hyperthermia) with Anesthesia Last Oral Intake Last Oral intake: Last Oral Intake NPO since Meds taken in AM with sips of water? 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 Female No 07/16/25 13:03 HX of Motion Sickness No 07/16/25 13:03 HX of N/V After Surgery No 07/16/25 13:03 Non-Smoker Yes 07/16/25 13:03 Duration of Surgery greater No 07/16/25 13:03 than 60 minutes Number of Risk Factors 1 07/16/25 13:03 PONV Score Low Risk 07/16/25 13:03 Height & Weight Height & Weight: Anesthesia: Height & Weight Height 5 ft 7 in 05/01/25 08:43 Respiratory Assessment Respiratory Assessment - professor of architecture: Respiratory Tract Infection Hx - professor of architecture Hx Respiratory Tract Infection No 07/16/25 13:03 STOP Sleep Apnea STOP Sleep Apnea - 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 Has anyone observed you stop No 07/16/25 13:03 breathing during sleep? STOP Results Negative 07/16/25 13:03 QUESTION #5 FULL TEXT : Do you snore loudly (louder than talking or can be heard through closed doors)? 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 Specify any problems Hx of Preganancy in last 3 N/A 07/16/25 13:03 Months Nurse Filling Out Transfusion VCHRISTIN 07/16/25 13:03 & Questions: Date: 07/16/25 07/16/25 13:03 Time: 13:04 07/16/25 13:03 Patient unable to answer at this time (ie. 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: /Reproductive Hx- professor of architecture Hx Now No 07/16/25 13:03 Gestational Age (in weeks): EDC: Hx Hx Para Hx Section SAB No 07/16/25 13:03 PFSH Medical History Shortness of breath on exertion Former smoker Wears hearing aid Wears glasses Wears dentures Depression Anxiety Prostate disease Fatty liver Easy bruising Back pain History of hiatal hernia History of diverticulitis On home oxygen therapy Leg cramps Chronic cough History of stress test Hypertension GERD (gastroesophageal reflux disease) Prostate atrophy Osteoarthritis COPD (chronic obstructive pulmonary disease) Chronic bronchiolitis Carpal tunnel syndrome Asthma Arthritis Home Medications ?Medication ?Instructions ?Recorded ?Last Taken ?Type cholecalciferol (vitamin D3) 50 2,000 unit PO DAILY Unknown History mcg (2,000 unit) capsule multivitamin with folic acid 200 200 mcg PO DAILY 10/13 Unknown History mcg chewable tablet (Adult Multivitamin Extra Vitamin D3) tamsulosin 0.4 mg capsule 0.4 mg PO QHS 11/24/17 Unkno wn History albuterol sulfate 90 mcg/actuation 2 puff inhalation Q 6H PRN SOB 12/11/21 06/23/22 History aerosol inhaler 2 puff finasteride 5 mg tablet 5 mg PO DAILY 12/11/21 Unkno wn History docusate sodium 100 mg capsule 100 mg PO DAILY 2 Unknown History (Stool Softener) budesonide 160 mcg-glycopyr 9 2 inh inhalation BID 06/20 Unknown History mcg-formot 4.8 mcg/actuation HFA inhaler (Breztri Aerosphere) cyanocobalamin-liver extract tablet 1 tab PO QWEEK 03/20 Unknown History atorvastatin 20 mg tablet (Lipitor) 20 mg PO QHS 07/16 Unknown History Allergy/AdvReac Type Severity Reaction Status Date / Time ibuprofen Allergy Mild shakes Verified 07/16/25 12:56 formoterol AdvReac Unknown unknown Verified 07/16/25 12:56 mometasone furoate AdvReac Unknown unknown Verified 07/16/25 12:56 Family History Other Alcohol abuse Anemia Arthritis Heart disease Kidney disease Myocardial infarction Respiratory disease Surgical History Hx of colonoscopy History of esophagogastroduodenoscopy (EGD) Hx of foot surgery Social History Smoking Status: Former smoker quit date: 12/23/22 pack-years: 40 Tobacco: How many years used: 40 alcohol intake: never substance use type: does not use what type of physical activity do you participate in: none Review of Systems (Anesthesia) ROS Narrative System reviewed and no additional complaints, except as documented.
[2025-07-17] MEDS: Lactated Ringers 1,000 ML 15 ML IV (08:43)
--- NOTE | 2025-07-17 09:15 | COLBX_PTH ---
PATIENT: EVELINE REYNOLDS LOC: EN U#:[id number] AGE/SX: 69/M ROOM: RE07/17/[address]: Dr. Lilian iKmbrough MD : 1955 BED: DIS: 07/17/2025 SPEC #: [id number] RECD: 07/17/25 11:29 STATUS: JAYDON REEfrain #: [id number] DEJAH: 07/17/25 09:[address]: Lilian Kimbrough DEPT: SURGICAL PATHOLOGY RECD BY: Kenyon Mathias ENTERED: 07/17/25 13:27 SP TYPE: COLON BX OT DR: Dr. Alexsander Casanova MD Tissues: A - Cecum, NOS B - Descending colon C - Sigmoid colon biopsy D - Rectum, NOS Procedures: Surgery Specimen Level IV HEADER OPERATION: Colonoscopy with polypectomy PRE-OP DIAGNOSIS: History of colonic polyps TISSUE SUBMITTED: A- Cecal polyps x2, B- Descending polyp, C- Sigmoid polyp biopsy, D- Rectal polyp biopsy MICROSCOPIC DIAGNOSIS A. Large intestine, cecal polyp, biopsies: * Tubular adenoma B. Large intestine, descending polyp: * Tubular adenoma C. Large intestine, sigmoid polyp: * Colonic mucosa with focal and superficial adenomatous features D. Rectum, polyp: - Hyperplastic polyp MICROSCOPIC DESCRIPTION Slides are reviewed. GROSS DESCRIPTION A. Received in fixative is one container labeled with the patient's name and designated Cecal polyp x2. The specimen consists of multiple irregular fragments of connors tissue that in aggregate measure 2.2 x 1 x 0.3 cm. The specimen is totally submitted in one cassette. B. Received in fixative is one container labeled with the patient's name and designated Descending polyp. The specimen consists of one irregular fragment of connors tissue that measures 0.3 cm. The specimen is totally submitted in one cassette. C. Received in fixative is one container labeled with the patient's name and designated Sigmoid polyp biopsy. The specimen consists of one irregular fragment of connors tissue that measures 0.6 cm. The specimen is totally submitted in one cassette. D. Received in fixative is one container labeled with the patient's name and designated Rectal polyp biopsy. The specimen consists of multiple irregular fragments of connors tissue that in aggregate measure 0.8 x 0.6 x 0.1 cm. The specimen is totally submitted in one cassette. AR 07/17/2025 CPT:13983d2
--- NOTE | 2025-07-17 09:25 | H&P.OPEN ---
HPI - General General Date of Service: 07/17/25 HPI Narrative EVELINE REYNOLDS, is a 69 M who presents for screening colonoscopy due to history of colon polyps. Patient's last colonoscopy was 04/2022 had multiple tubular adenomas at that time. Patient denies any family history of colon cancer. Patient has bowel movements daily denies any blood. [facility] Medical History Shortness of breath on exertion Former smoker Wears hearing aid Wears glasses Wears dentures Depression Anxiety Prostate disease Fatty liver Easy bruising Back pain History of hiatal hernia History of diverticulitis On home oxygen therapy Leg cramps Chronic cough History of stress test Hypertension GERD (gastroesophageal reflux disease) Prostate atrophy Osteoarthritis COPD (chronic obstructive pulmonary disease) Chronic bronchiolitis Carpal tunnel syndrome Asthma Arthritis Home Medications ?Medication ?Instructions ?Recorded ?Last Taken ?Type cholecalciferol (vitamin D3) 50 2,000 unit PO DAILY 11/24/17 Unknown History mcg (2,000 unit) capsule multivitamin with folic acid 200 200 mcg PO DAILY 11/24/17 Unknown History mcg chewable tablet (Adult Multivitamin Extra Vitamin D3) tamsulosin 0.4 mg capsule 0.4 mg PO QHS 11/24/17 Unknown History albuterol sulfate 90 mcg/actuation 2 puff inhalation Q6H PRN SOB 12/11/21 06/23/22 History aerosol inhaler 2 puff finasteride 5 mg tablet 5 mg PO DAILY 12/11/21 Unknown History docusate sodium 100 mg capsule 100 mg PO DAILY 05/05/22 Unknown History (Stool Softener) budesonide 160 mcg-glycopyr 9 2 inh inhalation BID 01/02/25 Unknown History mcg-formot 4.8 mcg/actuation HFA inhaler (Breztri Aerosphere) cyanocobalamin-liver extract tablet 1 tab PO QWEEK 05/01/25 Unknown History atorvastatin 20 mg tablet (Lipitor) 20 mg PO QHS 07/16/25 Unknown History Allergy/AdvReac Type Severity Reaction Status Date / Time ibuprofen Allergy Mild shakes Verified 07/17/25 08:38 formoterol AdvReac Unknown unknown Verified 07/17/25 08:38 mometasone furoate AdvReac Unknown unknown Verified 07/17/25 08:38 Family History Other Alcohol abuse Anemia Arthritis Heart disease Kidney disease Myocardial infarction Respiratory disease Surgical History Hx of colonoscopy History of esophagogastroduodenoscopy (EGD) Hx of foot surgery Social History Smoking Status: Former smoker quit date: 12/23/22 pack-years: 40 Tobacco: How many years used: 40 alcohol intake: never substance use type: does not use what type of physical activity do you participate in: none Past Medical/Surgical History Planned Operation Planned Operative Procedure(s): COLONOSCOPY-OA Previous Hospitalizations/Surgeries HX Hospitalizations: No Any Problems With Anesthesia: No You/Your Family Experience Fever (Hyperthermia) With Anes: No Cholinesterase deficiency: No Cardiovascular Hx Hypertension: Yes (NO MED PRESENTLY) Respiratory Hx Sleep Apnea: No Hx Respiratory Tract Infection/Cold (presently): No Do You Snore Loudly (louder than talking or can be heard): No Do You Often Feel Tired/ Fatigued/ Sleepy Dring Daytime?: No Has Anyone Observed You Stop Breathing During Sleep?: No Result (for STOP score): Negative Smoking Status: Former smoker Neurological Does patient have nerve stimulator: No Reproduction : No Miscellaneous Recent Exposure to Contagious Disease: No Allergies ibuprofen Allergy (Mild, Verified 07/17/25 08:38) shakes formoterol Adverse Reaction (Unknown, Verified 07/17/25 08:38) unknown mometasone furoate Adverse Reaction (Unknown, Verified 07/17/25 08:38) unknown Discharge Is Pt Admitted From a Skilled Nursing, or a Shelter: No After D/C, Where Do you Plan to Go: Return Home Vital Signs Vital Signs Vital Signs: 07/17/25 08:40 07/17/25 08:40 Temperature 98.1 F Temperature Source Temporal Pulse Rate 86 Respiratory Rate 18 Respiratory Pattern Normal Blood Pressure 101/79 Blood Pressure Mean 86 Blood Pressure Source Monitor Blood Pressure Position Sitting Blood Pressure Location Left Arm Pulse Ox 99 Oxygen Delivery Method Room Air Weight Weight: 189 lb 9.561 oz Body Mass Index (BMI) 29.7 Physical Exam Const alert, oriented x3 and no apparent distress HEENT normocephalic and head/scalp atraumatic Resp normal respiratory effort Cardio regular rate GI soft to palpation and non-tender; Negative for non-distended Palpation: Negative for guarding Extremity no clubbing, cyanosis or edema Skin no rashes or lesions noted Neuro CN's II-XII intact bilaterally Psych mental status grossly normal Assessment & Plan Assessment/Plan (1) Hx of colonic polyps: Surgery Risks - Colonoscopy I discussed with the patient the risks of the procedure: Yes Risks Include but are not Limited To: Risks include but are not limited to: Bleeding, perforation requiring further surgery, inability to complete colonoscopy requiring barium enema.
--- NOTE | 2025-07-17 10:20 | PCM.POST.ANE ---
Anesthesia: Postop Eval I Current Vital Signs Temperature: 98 F Pulse Rate: 70 Blood Pressure: 105/74 Respiratory Rate: 16 Pulse Ox: 98 Oxygen Delivery Method: Room Air Assessment Airway patent: Yes Spontaneous unlabored respirations: Yes Mental status: Awake and Calm nausea: No Vomiting: No Anesthesia Complication: No Fluid Hydration Crystalloid volume administer (ml): 500 Total IV fluid infused: 500 Progress Note Anesthesia document: Postop Eval 1 completed: Yes
--- NOTE | 2025-07-17 10:44 | PCM.POSTANE2 ---
Anesthesia Postop Eval I Sum Postop Eval Completion status Anesthesia document: Postop Eval 1 completed: Yes Anesthesia Postop Eval I Summary Anesthesia Postop Eval I Summary: Anesthesia Postop Eval I: Assessment Summary Airway patent Yes 07/17/25 10:21 [email or web address] Spontaneous unlabored Yes 07/17/25 10:21 [email or web address] respirations Mental status Awake,Calm 07/17/25 10:21 [email or web address] nausea No 07/17/25 10:21 [email or web address] Vomiting No 07/17/25 10:21 [email or web address] Anesthesia Postop Eval I: Fluid Summary Crystalloid volume administer 500 07/17/25 10:21 [email or web address] (ml) Colloids volume administered ( ml) Blood Product volume administered (ml) Total IV fluid infused 500 07/17/25 10:21 [email or web address] Anesthesia Postop Eval I: Summary Notes Anesthesia Complication No 07/17/25 10:21 [email or web address] Anesthesia Complication Comment: Post-operative progress note Anesthesia: Postop Eval II Evaluation Mental status: Awake Pain Level: 0 nausea: No Vomiting: No
--- NOTE | 2025-07-17 10:47 | OP.PROVAT_ITS ---
07/17/2025 Alexsander Casanova [address] [place] [address] Re : Colonoscopy procedure for Kale Sheehan Dear Dr. Casanova This procedure was performed on Thursday, July 17, 2025. My impressions and recommendations are as follows: Impressions : - Three 3 to 6 mm polyps in the descending colon and in the cecum, removed piecemeal using a hot snare. Resected and retrieved. - Three less than 5 mm polyps in the rectum and in the sigmoid colon, removed with a cold biopsy forceps. Resected and retrieved. - The examination was otherwise normal on direct and retroflexion views. Recommendations : - Discharge patient to home. - Resume previous diet. - Continue present medications. - Await pathology results. - Repeat colonoscopy 1-2 years for surveillance based on pathology results. My findings are described in the full procedure note, which is enclosed. If I can be of further assistance, please feel free to contact me at Doctor phone number(s): , Work: . Sincerely, MD Lilian Mcbride MD 07/17/2025 10:47:01 AM This report has been signed electronically.
--- NOTE | 2025-07-17 10:47 | OP.COLON_ITS ---
Patient Name: Kale Sheehan Procedure Date: 07/17/2025 9:28 AM Date of : 1955 Age: 69 Procedure: Colonoscopy Indications: High risk colon cancer surveillance: Personal history of colonic polyps Providers: Lilian Kimbrough MD Referring MD: Alexsander Casanova Medicines: Monitored Anesthesia Care Patient Profile: This is a 69 year old male. Last Colonoscopy: April 2022. Complications: No immediate complications. Procedure: Pre-Anesthesia Assessment: - Prior to the procedure, a History and Physical was performed, and patient medications and allergies were reviewed. The patient's tolerance of previous anesthesia was also reviewed. The risks and benefits of the procedure and the sedation options and risks were discussed with the patient. All questions were answered, and informed consent was obtained. Prior Anticoagulants: The patient has taken no anticoagulant or antiplatelet agents. ASA Grade Assessment: Per anesthesia. After reviewing the risks and benefits, the patient was deemed in satisfactory condition to undergo the procedure. After I obtained informed consent, the scope was passed under direct vision. Throughout the procedure, the patient's blood pressure, pulse, and oxygen saturations were monitored continuously. The Colonoscope was introduced through the anus and advanced to the cecum, identified by the appendiceal orifice, ileocecal valve and palpation. The colonoscopy was performed without difficulty. The patient tolerated the procedure well. The quality of the bowel preparation was good. Scope In: 9:41:13 AM Scope Withdrawal Time 0 hours 22 minutes 17 seconds Scope Out: 10:08:19 AM Total Procedure Duration Time 0 hours 27 minutes 6 seconds Findings: The perianal and digital rectal examinations were normal. Three semi-pedunculated polyps were found in the descending colon and cecum. The polyps were 3 to 6 mm in size. These polyps were removed with a piecemeal technique using a hot snare. Resection and retrieval were complete. Three sessile polyps were found in the rectum and sigmoid colon. The polyps were less than 5 mm in size. These polyps were removed with a cold biopsy forceps. Resection and retrieval were complete. The exam was otherwise without abnormality on direct and retroflexion views. Impression: - Three 3 to 6 mm polyps in the descending colon and in the cecum, removed piecemeal using a hot snare. Resected and retrieved. - Three less than 5 mm polyps in the rectum and in the sigmoid colon, removed with a cold biopsy forceps. Resected and retrieved. - The examination was otherwise normal on direct and retroflexion views. Recommendation: - Discharge patient to home. - Resume previous diet. - Continue present medications. - Await pathology results. - Repeat colonoscopy 1-2 years for surveillance based on pathology results. Procedure Code(s): --- Professional --- 80336, PT, Colonoscopy, flexible; with removal of tumor(s), polyp(s), or other lesion(s) by snare technique 47442, 59, Colonoscopy, flexible; with biopsy, single or multiple Diagnosis Code(s): --- Professional --- Z86.010, Personal history of colonic polyps D12.4, Benign neoplasm of descending colon D12.0, Benign neoplasm of cecum D12.8, Benign neoplasm of rectum D12.5, Benign neoplasm of sigmoid colon CPT copyright 2021 [employer]. All rights reserved. The codes documented in this report are preliminary and upon hand sign writer review may be revised to meet current compliance requirements. MD Lilian Mcbride MD 07/17/2025 10:47:01 AM This report has been signed electronically. Number of Addenda: 0 Note Initiated On: 07/17/2025 9:28 AM
== END 2025-07-17 11:12 | disposition home or self-care (01) ==
LOC: EN 07:27 → AC 07:28
PROVIDERS: PCP Family Medicine; Referring Provider Family Medicine; Visit Provider Surgery
PROC: 0DJD8ZZ Inspection of Lower Intestinal Tract, Via Natural or Artificial Opening Endoscopic (ICD-10-PCS; CPT 45378; principal; 2025-07-17 09:10)
DX: Z12.11 Encounter for screening for malignant neoplasm of colon (principal); J44.9 Chronic obstructive pulmonary disease, unspecified; D12.0 Benign neoplasm of cecum; D12.8 Benign neoplasm of rectum; Z87.891 Personal history of nicotine dependence; I10 Essential (primary) hypertension; Z86.0100 Personal history of colon polyps, unspecified; Z99.81 Dependence on supplemental oxygen; Z79.899 Other long term (current) drug therapy; Z79.51 Long term (current) use of inhaled steroids; K63.5 Polyp of colon
CPT/HCPCS: 45385; 45380; 88305; J2405

== ENCOUNTER → 2025-08-20 | Outpatient (CLI) | payer MEDICARE, SELFPAY ==
[2025-08-20 18:09] LABS: PSA,Total - Annual Screen 0.28 ng/mL (0.02-4.00)
--- OUTSIDE RECORDS SUMMARY | 2025-08-20 18:26 | XMS RPT_ITS | CCD ---
Author Organization [facility] Care Team Providers Care Gift Officer Name Role Phone MAE CUEVA Admitting Unavailable RAMON MCKEON Attending Unavailable Cliff Pastor Primary Care Provider [phone] Dr. Marcelo Morgan Attending Provider Dr. Marcelo Morgan Referring Provider Dr. Marcelo Morgan Other Provider Dr. Salvador Herndon Primary Care Provider [phone] [place], [place] Referring Provider Unavailable Brett ROPING TENDER, ROPING TENDER-C Elissa Attending Provider [phone] Dr. Alexsander Casanova Primary Care Provider [phone] Brett CHO NP-C Elissa Referring Provider [phone] Dr. Alexsander Casanova Primary Care Provider [phone] Brett CHO, ROPING TENDER-C Elissa Attending Provider [phone] Dr. Alexsander Casanova Referring Provider Dr. Lilian [...] Referring Provider Dr. Marcelo Morgan Attending Provider Edilberto LONGORIA, Dr. Alexsander Levy Primary Care Provider Edilberto LONGORIA, Dr. Alexsander Levy Attending Provider Edilberto LONGORIA, Dr. Alexsander Levy Referring Provider Brett ROPING TENDER-C, Elissa Attending Provider Brett ROPING TENDER-C, Elissa Referring Provider Edilberto LONGORIA, Dr. Alexsander Levy Primary Care Provider [phone] Edilberto LONGORIA, Dr. Alexsander Levy Referring Provider [phone] Dr. Alexsander Casanova MD Primary Care Provider Brett ROPING TENDER-C, Elissa Attending Provider Brett ROPING TENDER-C, Elissa Referring Provider Dr. Alexsander Casanova MD Primary Care Physician Brett ROPING TENDER-C, Elissa Attending Physician Edilberto LONGORIA, Dr. Alexsander Levy Referring Provider Edilberto LONGORIA, Dr. Alexsander Levy Attending Physician Alexsander Casanova Primary Care Unavailable Robotham, Lilian Consulting Unavailable Robotham, Lilian Attending Unavailable Alexsander Casanova Referring Unavailable Alexsander Casanova Referring Unavailable Alexsander Casanova Primary Care Unavailable Alexsander Casanova Attending Unavailable Alexsander Casanova Primary Care Unavailable Alexsander Casanova Attending Unavailable Alexsander Casanova Referring Unavailable Alexsander Casanova Primary Care Unavailable Alxesander Casanova Attending Unavailable Brett ROPING TENDER, Elissa Attending Unavailable Brett ROPING TENDER, Elissa Referring Unavailable Alexsander Casanova Primary Care Unavailable Brett ROPING TENDER, Elissa Attending Unavailable Brett ROPING TENDER, Elissa Referring Unavailable Alexsander Casanova Primary Care Unavailable Alexsander Casanova Primary Care Unavailable Lilian Kimrbough Attending Unavailable Alexsander Casanova Referring Unavailable Alexsander Casanova Primary Care Unavailable Alexsander Casanova Attending Unavailable Alexsander Casanova Referring Unavailable Alexsander Casanova Primary Care Unavailable Brett ROPING TENDER, Elissa Attending Unavailable Alexsander Casanova Referring Unavailable Brett ROPING TENDER, Elissa Attending Unavailable Alexsander Casanova Primary Care Unavailable Alexsander Casanova Referring Unavailable Dr. Alexsander Casanova MD Primary Care Physician Brett ROPING TENDER-C, Elissa Attending Physician [phone] Brett ROPING TENDER-C, Elissa Referring Provider Edilberto LONGORIA, Dr. Alexsander Levy Referring Provider [phone] Edilberto LONGORIA, Dr. Alexsander Levy Attending Physician [phone] Dr. Lilian Kimbrough MD Attending Physician Luis E LONGORIA, Dr. Quintana Nurse Practitioner [phone] Allergies Allergy Classification Reported Allergen(s) Allergy Type Date of Onset Reaction(s) Facility (17 sources) formoterol Drug Allergy 03-22-2019 Unknown [facility] Work Phone: (17 sources) Ibuprofen Drug Allergy 03-22-2019 Intolerance [facility] Work Phone: (17 sources) Mometasone Drug Allergy 03-22-2019 Unknown [facility] Work Phone: (1 source) formoterol Drug Allergy 07-17-2025 [facility] (1 source) Ibuprofen Drug Allergy 07-17-2025 [facility] (1 source) Mometasone Drug Allergy 07-17-2025 [facility] Medications Current Medications Medication Drug Class(es) Dates Sig (Normalized) Sig (Original) [id number] 200 actuat albuterol 0.09 mg/actuat metered dose inhaler (17 sources) beta2-Adrenergic Agonist Start: 12-11-2021 Start: 12-11-2021 take 1 puff(s) by in halation every six hours Albuterol Sulfate Active 2 PUFF INHALATION EVERY 6 HOURS December 10, 2021 11:00pm albuterol HFA (P ROVENTIL HFA, VENTOLIN HFA) 90 mcg/actuation inhaler Inhale 2 Puffs as instructed. 0 Active Comment on above: Inhale 2 Puffs as in structed. atorvastatin 20 mg oral tablet (17 sources) HMG-CoA Reductase Inhibitor Start: 07-16-2025 take 1 tablet by mouth at bedtime Start: 05-05-2022 End: 03-19-2024 take 1 tablet by mouth at bedtime Atorvastatin 20 mg Tablet Discontinued 20 mg PO AT BEDTIME May 04, 2022 11:00pm March 19, 2024 1:32pm take 1 tablet by jennifer th once daily atorvastatin (LIPITOR) 20 mg tablet Take 20 mg by mouth once daily. 0 Active Comment on above: Take 20 mg by mouth once daily. Nwxtichuuc-Ggetuddu-Cochzmxn ol (5 sources) Corticosteroid, beta2-Adrenergic Agonist Start: 01-02-2025 Start: 01-02-2025 Start: 01-02-2025 Budesonide-Gly copyr-Formoterol (Breztri [...] 2017 1:00am cholecalciferol 0.05 mg oral capsule (16 sources) Vitamin D Start: 11-24-2017 take 1 [...] May 05, 2022 12:00am Cyanocobalamin-Liver Extract (Vitamin W51-Beeou) Tablet (1 source) Start: 05-05-2022 take 1 tablet by mouth every week Cyanocobalamin-Liver Extract (Vitamin L92-Himha) Tablet Active 1 TABLET PO EVERY WEEK May 05, 2022 12:00am Cyanocobalamin-Liver Extract tablet (4 sources) Start: 05-01-2025 Start: 05-01-2025 Start: 05-01-2025 Cyanocobalamin -Liver Extract tablet Active 1 {tbl} PO EVERY WEEK May 01, 2025 2:45pm docusate sodium 100 mg oral capsule (15 sources) Start: 05-05-2022 take 1 capsule by mouth once daily finasteride 5 mg oral tablet (17 sources) 5-alpha Reductase Inhibitor Start: 12-11-2021 take 1 tablet by mouth once daily Comment on above: Take 5 mg by mouth o nce daily. Fluticasone Propion-Salmeterol (1 source) Corticosteroid, beta2-Adrenergic Agonist Start: 12-11-2021 Fluticasone Propion-Salmeterol (Wixela Inhub) 500-50 mcg/dose blister with device Active 1 INH INHALATION Q12H December 11, 2021 12:00am Multivitamin With Folic Acid (Adult Multivitamin Extra Vitd3) 200 mcg tablet,chewable (16 sources) Start: 11-24-2017 Start: 11-24-2017 Start: 11-24-2017 Multivitamin W ith [...] MCG PO November 24, 2017 1:00am nystatin [id number] unt/ml oral suspension (1 source) Polyene Antifungal Start: 12-11-2021 Nystatin Ac tive 5 ML MUCOUS MEM THREE TIMES A DAY 250 December 11, 2021 12:00am swish and swallow 5 cc three times per day for 10 days tamsulosin hydrochloride 0.4 mg oral capsule (17 sources) alpha-Adrenergic Joss Start: 11-24-2017 take 1 [...] as needed. amLODIPine 5 mg oral tablet (16 sources) Dihydropyridine Calcium Channel Joss Start: 05-05-20 End: 03-19-20 24 take 1 tablet by mouth at bedtime Amlodipine 5 mg Tablet Discontinued 5 mg PO AT BEDTIME May 04, 2022 11:00pm March 19, 2024 1:32pm take 1 tablet by mouth once katherine y amLODIPine (NORVASC) 5 mg tablet Take 5 mg by mouth once daily. 0 Active Comment on above: Take 5 mg by mouth o nce daily. Budesonide-Formoterol (20 sources) Corticosteroid, beta2-Adrenergic Agonist Start: 01-27-2021 End: 12-11-2021 Budesonide-Formoterol (Symbicort) 160-4.5 mcg/actuation HFA aerosol inhaler Discontinued 2 NMA INHALATION TWICE A DAY 10.2 3 January 27, 2021 9:43am December 11, 2021 1:02pm Start: 01-27-2021 End: 12-11-2021 Budesonide-Formoterol (Symbi jonathan) [...] A DAY 10.2 3 November 18, 2020 12:00am January 27, 2021 9:43am Start: 11-18-2020 End: 01-27-2021 Budesonide-Formoterol (Symbi jonathan) [...] daily. cetirizine hydrochloride 10 mg oral capsule (16 sources) Histamine-1 Receptor Antagonist Start: 01-27-20 End: 03-19-20 24 take 1 capsule by mouth once daily Cetirizine (All Day Allergy (Cetirizine)) 10 mg capsule Discontinued 10 mg PO DAILY January 25, 2021 11:00pm March 19, 2024 1:33pm 12 hr cetirizine hydrochloride 5 mg / pseudoephedrine hydrochloride 120 mg extended release oral tablet (1 source) alpha-Adrenergic Agonist, Histamine-1 Receptor Antagonist take 1 tablet by mouth twice daily cetirizine-pseudoeph edrine (ZYRTEC-D) 5-120 mg per tablet Take 1 tablet by mouth twice daily. 0 Active Comment on above: Take 1 tablet by jennifer twice daily. Cyanocobalamin-Liver Extract Tablet (6 sources) Start: 05-05-20 End: 05-01-20 Cyanocobalamin-Liver Extract Tablet Discontinued 1 {tbl} PO EVERY WEEK May 04, 2022 11:00pm May 01, 2025 1:46pm Start: 05-05-2022 End: 05-01-2025 Cyanocobalamin-Liver Extract Tablet Discontinued 1 {tbl} PO [...] (FLONASE) 50 mcg/actuation nasal spray Use 1 [place] in each nostril daily at bedtime. As needed. BEFORE LYING DOWN FOR BED 1 Bottle 0 03/22/2019 Active Comment on above: Use 1 [place] in each nostril daily at bedtime. As needed. BEFORE LYING DOWN FOR BED Fluticasone-Umecl idin-Vilanter (20 sources) Anticholinergic, Corticosteroid, beta2-Adrenergic Agonist Start: 08-31-2024 End: 01-02-2025 Fluticasone-Umecli din-Vilanter (Trelegy Ellipta) 100-62.5-25 mcg blister with device Discontinued 1 NMA INHALATION DAILY 60 August 31, 2024 10:35am January 02, 2025 7:07am Start: 08-31-2024 End: 01-02-2025 Ivgeltkocnk-Urshvqfbe-Kukbfw er (Trelegy Ellipta) 100-62.5-25 mcg blister with device Discontinued 1 NMA INHALATION DAILY 60 August 31, 2024 11:35am January 02, 2025 8:07am Start: 08-31-2024 Fluticasone-Um eclidin-Vilanter (Trelegy Ellipta) 100-62.5-25 mcg blister with device Active 1 NMA INHALATION DAILY 60 August 31, 2024 11:35am Start: 09-07-2023 End: 08-31-2024 Nukmxuhayky-Bcokylpfa-Bivnhn er (Trelegy Ellipta) 100-62.5-25 mcg blister with device Discontinued 1 NMA INHALATION DAILY 60 September 07, 2023 2:03pm August 31, 2024 10:35am Start: 09-07-2023 End: 08-31-2024 Dfpgagakwpr-Wgwdechwq-Jnadmu er (Trelegy Ellipta) 100-62.5-25 mcg blister with device Discontinued 1 NMA INHALATION DAILY 60 September 07, 2023 3:03pm August 31, 2024 11:35am Start: 09-07-2023 End: 08-31-2024 Oizaqjyujqm-Lypeeqvzp-Afmyhj er (Trelegy Ellipta) 100-62.5-25 mcg blister with device Discontinued 1 NMA INHALATION DAILY September 07, 2023 3:03pm August 31, 2024 11:35am Start: 09-07-2023 Fluticasone-Um eclidin-Vilanter (Trelegy Ellipta) 100-62.5-25 mcg blister with device Active 1 INH INHALATION DAILY September 07, 2023 2:03pm Start: 05-05-2022 End: 09-07-2023 Owjhbzndmie-Clprpfuxz-Ioprxf er (Trelegy Ellipta) 100-62.5-25 mcg Blister With Device Discontinued 1 NMA INHALATION DAILY May 04, 2022 11:00pm September 07, 2023 2:04pm Start: 05-05-2022 End: 09-07-2023 Ssztcwbgtlv-Wpqdjzcqo-Slxjcw er (Trelegy Ellipta) 100-62.5-25 mcg Blister With Device Discontinued 1 NMA INHALATION DAILY May 05, 2022 12:00am September 07, 2023 3:04pm Start: 05-05-2022 End: 09-07-2023 Iagxlzfmgik-Hxjbbfign-Vusqto er (Trelegy Ellipta) 100-62.5-25 mcg Blister With [...] guaiFENesin 600 mg extended release oral tablet (20 sources) Start: 12-13-2023 End: 03-19-2024 take 2 tablets by mouth every twelve hours, then take 1 tablet by mouth every twelve hours Guaifenesin (Mucinex) 600 mg tablet extended release 12hr Discontinued 1200 mg PO Q12H 120 6 December 13, 2023 12:57pm March 19, 2024 1:36pm Cough Start: 05-05-2022 End: 12-13-2023 take 1 tablet by mouth every twelve hours as needed for cough, then take 1 tablet by mouth every twelve hours as needed for cough Guaifenesin (Mucinex) 600 mg Tablet Extended Release 12hr Discontinued 600 mg PO Q12H as needed for Cough May 04, 2022 11:00pm December 13, 2023 12:57pm lansoprazole 15 mg delayed release oral capsule (15 sources) Proton Pump Inhibitor Start: 05-05-2022 End: 05-13-2022 take 2 capsules by mouth twice daily Lansoprazole 15 mg Capsule,Delayed Release(Dr/Ec) Discontinued 30 mg PO TWICE A DAY May 04, 2022 11:00pm May 13, 2022 6:27am Start: 05-05-2022 End: 05-13-2022 take 30 mg by mouth twice daily Lansoprazole Discontinued 30 MG PO TWICE A DAY May 04, 2022 11:00pm May 13, 2022 6:27am levoFLOXacin 750 mg oral tablet (20 sources) Quinolone Antimicrobial Start: 01-27-2022 End: 02-03-2022 take 1 tablet by mouth every twenty-four hours Levofloxacin 750 mg tablet Discontinued 750 mg PO Q24H 7 7 0 January 26, 2022 11:00pm February 01, 2022 11:00pm February 02, 2022 11:04pm Start: 01-28-2021 End: 02-04-2021 take 1 tablet by mouth every twenty-four hours Levofloxacin 750 mg tablet Discontinued 750 mg PO Q24H 7 7 0 January 27, 2021 11:00pm February 02, 2021 11:00pm February 03, 2021 11:02pm montelukast 10 mg oral tablet (6 sources) Leukotriene Receptor Antagonist Start: 12-13-2023 End: 03-19-2024 take 1 tablet by mouth once daily in the evening Montelukast 10 mg tablet Discontinued 10 mg PO EVERY EVENING 30 December 12, 2023 11:00pm March 19, 2024 1:36pm pantoprazole 40 mg delayed release oral tablet (14 sources) Proton Pump Inhibitor Start: 05-13-2022 End: 03-19-2024 take 1 tablet by mouth once daily Pantoprazole 40 mg tablet,delayed release (DR/EC) Discontinued 40 mg PO DAILY 22 02May 12, 2022 11:00pm March 19, 2024 1:35pm predniSONE 20 mg oral tablet (20 sources) Start: 07-21-2023 End: 09-07-2023 take 3 tablets by mouth once daily at mealtime Prednisone 20 mg tablet Discontinued 60 mg PO daily July 20, 2023 11:00pm September 07, 2023 1:22pm administer with food or milk Start: 07-21-2023 End: 09-07-2023 take 60 mg by mouth once daily at mealtime Prednisone Discontinued 60 MG PO daily July 20, 2023 11:00pm September 07, 2023 1:22pm administer with food or milk Start: 01-28-2021 End: 06-17-2021 Prednisone 10 mg tablet Discontinued 10 mg PO daily 30 January 27, 2021 11:00pm June 17, 2021 1:18pm take 4 tabs for three days, then 3 tabs for three days, then 2 tabs for three days, then 1 tab for 3 days roflumilast 0.5 mg oral tablet (5 sources) Phosphodiesterase 4 Inhibitor Start: 01-02-2025 End: 07-16-2025 take 1 tablet by mouth once daily Roflumilast (Daliresp) 500 mcg tablet Discontinued 500 ug PO DAILY 30 January 01, 2025 11:00pm July 16, 2025 11:58am Hypoxia Hypoxemia Start: 01-02-2025 take 1 tablet by jennifer th once daily Roflumilast (Daliresp) 500 mcg tablet Active 500 ug PO DAILY 30 January 02, 2025 12:00am Hypoxia Hypoxemia sertraline 50 mg oral tablet (16 sources) Serotonin Reuptake Inhibitor Start: 12-11-2021 End: 03-19-2024 take 1 tablet by mouth once daily Sertraline 50 mg tablet Discontinued 50 mg PO DAILY December 10, 2021 11:00pm March 19, 2024 1:35pm sucralfate 1000 mg oral tablet (14 sources) Aluminum Complex Start: 06-23-2022 End: 03-19-2024 take 1 tablet by mouth four times daily 1 hour(s) before bedtime Sucralfate 1 gram tablet Discontinued 1 g PO 4 TIMES DAILY 120 0 June 22, 2022 11:00pm March 19, 2024 1:35pm Take 1 hour before meals and at bedtime 60 actuat tiotropium 0.0025 mg/actuat inhalation spray (20 sources) Anticholinergic Start: 01-27-2021 End: 06-26-2021 take 2.5 ug by inhalation once daily Tiotropium [place] (Spiriva Respimat) 2.5 mcg/actuation mist Discontinued 2 NMA INHALATION DAILY 4 January 27, 2021 9:43am June 26, 2021 4:25am Start: 01-27-2021 End: 06-26-2021 take 1 puff(s) by inhalation once daily Tiotropium [place] (Spiriva Respimat) 2.5 mcg/actuation mist Discontinued 2 PUFF INHALATION DAILY January 27, 2021 9:43am June 26, 2021 4:25am Start: 11-18-2020 End: 01-27-2021 take 2.5 ug by inhalation once daily Tiotropium [place] (Spiriva Respimat) 2.5 mcg/actuation mist Discontinued 2 NMA INHALATION DAILY 4 November 18, 2020 12:00am January 27, 2021 9:43am Start: 11-18-2020 End: 01-27-2021 take 2.5 ug by inhalation once daily Tiotropium [place] (Spiriva Respimat) 2.5 mcg/actuation mist Discontinued 2 NMA INHALATION DAILY 4 November 18, 2020 1:00am January 27, 2021 10:43am Start: 11-18-2020 End: 01-27-2021 take 2.5 ug by inhalation once daily Tiotropium [place] (Spiriva Respimat) 2.5 mcg/actuation mist Discontinued 2 NMA INHALATION DAILY November 18, 2020 1:00am January 27, 2021 10:43am Start: 11-18-2020 End: 01-27-2021 take 1 puff(s) by inhalation once daily Tiotropium [place] (Spiriva Respimat) 2.5 mcg/actuation mist Discontinued 2 PUFF INHALATION DAILY November 18, 2020 12:00am January 27, 2021 9:43am Start: 11-18-2020 End: 01-27-2021 take 1 puff(s) by inhalation once daily Tiotropium [place] (Spiriva Respimat) 2.5 mcg/actuation mist Discontinued 2 [...] Date Documented Da te Episodic/Chronic Abdominal hernia (18 sources) Umbilical hernia; Translations: [Umbilical hernia without [...] urinary tract symptoms] Onset: 5 Chronic Mycoses (17 sources) Candidiasis of mouth; Translations: [Candidal stomatitis] Episodic Nutritional deficiencies (1 source) Vitamin D deficiency, unspecified; Translations: [Vitamin D deficiency, unspecified] Onset: 5 Chronic Other and unspecified benign neoplasm (16 sources) History of polyp of colon; Translations: [Personal history of colonic polyps] 03-31-2022 Episodic Other and unspecified benign neoplasm (7 sources) Personal history of colonic polyps; Translations: [Personal history of colonic polyps] Episodic Other bone disease and musculoskeletal deformities (20 sources) Segmental and somatic dysfunction; Translations: [Segmental and somatic dysfunction of cervical region] 01-02-2018 Episodic Other gastrointestinal disorders (14 sources) Gastrointestinal tract problem; Translations: [Other specified symptoms and signs involving the digestive system and abdomen] 06-23-2022 Episodic Comment on above: Focal indeterminate dysplasia at the GE junction Other gastrointestinal disorders (3 sources) Other specified symptoms and signs involving the digestive system and abdomen; Translations: [Other abnormal clinical findings] Episodic Other lower respiratory disease (16 sources) Nodule of lung; Translations: [Solitary pulmonary nodule] 06-17-2021 Episodic Other lower respiratory disease (11 sources) Hypoxia; Translations: [Hypoxemia] 01-02-2025 Episodic Other nutritional; endocrine; and metabolic disorders (16 sources) Obese class I; Translations: [Obesity, unspecified] 11-18-2020 Chronic Other nutritional; endocrine; and metabolic disorders (2 sources) Obesity, unspecified; Translations: [Obesity, unspecified] Chronic Other screening for suspected conditions (not mental disorders or infectious disease) (1 source) Encounter for screening for malignant neoplasm of colon; Translations: [Encounter for screening for malignant neoplasm of colon] Onset: 5 Episodic Other upper respiratory disease (1 source) Rhinitis; Translations: [Chronic rhinitis] Onset: 9 12-31-2018 Chronic Residual codes; unclassified (16 sources) Hypersomnia; Translations: [Hypersomnia, unspecified] 11-18-2020 Chronic Residual codes; unclassified (16 sources) Tobacco user; Translations: [Tobacco use] 06-17-2021 [...] [Unspecified abdominal pain] Onset: 12-31-2018 12-31-2018 Episodic Other lower respiratory disease (1 source) Hypoxemia; Translations: [Hypoxemia] Onset: 04-18-2025 Episodic Residual codes; unclassified (1 source) Current non-smoker ; Translations: [Other specified health status] Onset: 12-31-2018 12-31-2018 Episodic Results Test Name Value Interpretation Reference Range Facility Surgical pathology reportOrd ered By: Mihir Ware on 07-21-2025 Surgical pathology study [facility] Colonoscopy Reporton 025 Colonoscopy Report [facility] Medical Records Department [address] [place] [id number] Colonoscopy Report MR#: [id number] Acct: [id number] Name: KALE SHEEHAN Rep #: [id number] : 1955 69 From: Lilian Kimbrough MD PCP: Dr. Alexsander Casanova MD Status:[facility] Patient Name: Kale Sheehan Procedure Date: 07/17/2025 9:28 AM Date of : 1955 Age: 69 Procedure: Colonoscopy Indications: High risk colon cancer surveillance: Personal history of colonic polyps Providers: Lilian Kimbrough MD Referring MD: Alexsander Casanova Medicines: Monitored Anesthesia Care Patient Profile: This is a 69 year old male. Last Colonoscopy: April 2022. Complications: No immediate complications. Procedure: Pre-Anesthesia Assessment: - Prior to the procedure, a History and Physical was performed, and patient medications and allergies were reviewed. The patient's tolerance of previous anesthesia was also reviewed. The risks and benefits of the procedure and the sedation options and risks were discussed with the patient. All questions were answered, and informed consent was obtained. Prior Anticoagulants: The patient has taken no anticoagulant or antiplatelet agents. ASA Grade Assessment: Per anesthesia. After reviewing the risks and benefits, the patient was deemed in satisfactory condition to undergo the procedure. After I obtained informed consent, the scope was passed under direct vision. Throughout the procedure, the patient's blood pressure, pulse, and oxygen saturations were monitored continuously. The Colonoscope was introduced through the anus and advanced to the cecum, identified by the appendiceal orifice, ileocecal valve and palpation. The colonoscopy was performed without difficulty. The patient tolerated the procedure well. The quality of the bowel preparation was good. Scope In: 9:41:13 AM Scope Withdrawal Time 0 hours 22 minutes 17 seconds Scope Out: 10:08:19 AM Total Procedure Duration Time 0 hours 27 minutes 6 seconds Findings: The perianal and digital rectal examinations were normal. Three semi-pedunculated polyps were found in the descending colon and cecum. The polyps were 3 to 6 mm in size. These polyps were removed with a piecemeal technique using a hot snare. Resection and retrieval were complete. Three sessile polyps were found in the rectum and sigmoid colon. The polyps were less than 5 mm in size. These polyps were removed with a cold biopsy forceps. Resection and retrieval were complete. The exam was otherwise without abnormality on direct and retroflexion views. Impression: - Three 3 to 6 mm polyps in the descending colon and in the cecum, removed piecemeal using a hot snare. Resected and retrieved. - Three less than 5 mm polyps in the rectum and in the sigmoid colon, removed with a cold biopsy forceps. Resected and retrieved. - The examination was otherwise normal on direct and retroflexion views. Recommendation: - Discharge patient to home. - Resume previous diet. - Continue present medications. - Await pathology results. - Repeat colonoscopy 1-2 years for surveillance based on pathology results. Procedure Code(s): --- Professional --- 00955, PT, Colonoscopy, flexible; with removal of tumor(s), polyp(s), or other lesion(s) by snare technique 79932, 59, Colonoscopy, flexible; with biopsy, single or multiple Diagnosis Code(s): --- Professional --- Z86.010, Personal history of colonic polyps D12.4, Benign neoplasm of descending colon D12.0, Benign neoplasm of cecum D12.8, Benign neoplasm of rectum D12.5, Benign neoplasm of sigmoid colon CPT copyright 2021 [employer]. All rights reserved. The codes documented in this report are preliminary and upon loan services professional review may be revised to meet current compliance requirements. MD Lilian Mcbride MD 07/17/2025 10:47:01 AM This report has been signed electronically. Number of Addenda: 0 Note Initiated On: 07/17/2025 9:28 AM 07/17/25 1047 Date Lilian Kimbrough MD Cosigner Signature: Date (if indicated) CC: Dr. Alexsander Casanova MD; Dr. Lilian Kimbrough MD Date Dictated: 07/17/25927 Date Transcribed: Statistics Manager: TR Signed [facility] MR/OP.Melinda 07-17-2025 MR/OP.[facility] Medical Records Department [address] [place] [id number] Provation Physician Letter MR#: [id number] Acct: [id number] Name: KALE SHEEHAN Rep #: [id number] : 1955 69 From: Lilian Kimbrough MD PCP: Dr. Alexsander Casanova MD Status:[facility] 07/17/2025 Alexsander Casanova [address] [address] Re : Colonoscopy procedure for Kale Davisbbins Dear Dr. Casanova This procedure was performed on Thursday, July 17, 2025. My impressions and recommendations are as follows: Impressions : - Three 3 to 6 mm polyps in the descending colon and in the cecum, removed piecemeal using a hot snare. Resected and retrieved. - Three less than 5 mm polyps in the rectum and in the sigmoid colon, removed with a cold biopsy forceps. Resected and retrieved. - The examination was otherwise normal on direct and retroflexion views. Recommendations : - Discharge patient to home. - Resume previous diet. - Continue present medications. - Await pathology results. - Repeat colonoscopy 1-2 years for surveillance based on pathology results. My findings are described in the full procedure note, which is enclosed. If I can be of further assistance, please feel free to contact me at Doctor phone number(s): , Work: . Sincerely, MD Lilian Mcbride MD 07/17/2025 10:47:01 AM This report has been signed electronically. 07/17/25 1047 Date Lilian [place] Signature: Date (if indicated) CC: Dr. Alexsander Casanova MD; Dr. Lilian Kimbrough MD Date Dictated: 07/17/25927 Date Transcribed: Statistics Manager: TR Signed [facility] MR/POSTOP.Dilip 07-17-2025 MR/POSTOP[facility] Medical Records Department [address] [place] [address] Anesthesia Postop Eval I 07/17/25 1020 MR#: [id number] Acct: [id number] Name: KALE SHEEHAN Rep #: [id number] : 1955 69 From: Edis Mccormack PCP: Dr. Alexsander Casanova MD Status:REG SDC Y Race: C Location: [place] [address] Anesthesia: Postop Eval I Current Vital Signs Temperature: 98 F Pulse Rate: 70 Blood Pressure: 105/74 Respiratory Rate: 16 Pulse Ox: 98 Oxygen Delivery Method: Room Air Assessment Airway patent: Yes Spontaneous unlabored respirations: Yes Mental status: Awake and Calm nausea: No Vomiting: No Anesthesia Complication: No Fluid Hydration Crystalloid volume administer (ml): 500 Total IV fluid infused: 500 Progress Note Anesthesia document: Postop Eval 1 completed: Yes 07/17/25 1021 Date Edis Billings Signature: Date CC: Signed Normal [facility] MR/YPCQRANK2is 07-17-2025 [facility] Medical Records Department [address] [place] [address] Anesthesia Postop Eval II 07/17/25 1044 MR#: [id number] Acct: [id number] Name: KALE SHEEHAN Rep #: [id number] : 1955 69 From: Singh Salazar MD PCP: Dr. Alexsander Casanova MD Status:REG [facility] Y Race: C Location: [place] [address] Anesthesia Postop Eval I Sum Postop Eval Completion status Anesthesia document: Postop Eval 1 completed: Yes Anesthesia Postop Eval I Summary Anesthesia Postop Eval I Summary: Anesthesia Postop Eval I: Assessment Summary Airway patent Yes 07/17/25 10:21 [email or web address] Spontaneous unlabored Yes 07/17/25 10:21 [email or web address] respirations Mental status Awake,Calm 07/17/25 10:21 [email or web address] nausea No 07/17/25 10:21 [email or web address] Vomiting No 07/17/25 10:21 [email or web address] Anesthesia Postop Eval I: Fluid Summary Crystalloid volume administer 500 07/17/25 10:21 [email or web address] (ml) Colloids volume administered ( ml) Blood Product volume administered (ml) Total IV fluid infused 500 07/17/25 10:21 [email or web address] Anesthesia Postop Eval I: Summary Notes Anesthesia Complication No 07/17/25 10:21 [email or web address] Anesthesia Complication Comment: Post-operative progress note Anesthesia: Postop Eval II Evaluation Mental status: Awake Pain Level: 0 nausea: No Vomiting: No 07/17/25 1044 Date Singh Billings Signature: Date CC: Signed Normal [facility] Surgery Specimen Level [place] 07-17-2025 Surgery Specimen Level IV -------- Patient Age/Sex Location Account Attending Physician -------- KALE SHEEHAN/M EN [id number] Dr. Lilian Kimbrough MD -------- Specimen: [id number] Received: 07/17/25 Status: JAYDON [place] Num: [id number] Spec Type: COLON BX Subm Dr: Dr. Lilian Kimbrough MD HEADER OPERATION: Colonoscopy with polypectomy PRE-OP DIAGNOSIS: History of colonic polyps TISSUE SUBMITTED: A- Cecal polyps x2, B- Descending polyp, C- Sigmoid polyp biopsy, D- Rectal polyp biopsy -------- MICROSCOPIC DIAGNOSIS A. Large intestine, cecal polyp, biopsies: * Tubular adenoma B. Large intestine, descending polyp: * Tubular adenoma C. Large intestine, sigmoid polyp: * Colonic mucosa with focal and superficial adenomatous features D. Rectum, polyp: - Hyperplastic polyp MICROSCOPIC DESCRIPTION Slides are reviewed. GROSS DESCRIPTION A. Received in fixative is one container labeled with the patient's name and designated Cecal polyp x2. The specimen consists of multiple irregular fragments of connors tissue that in aggregate measure 2.2 x 1 x 0.3 cm. The specimen is totally submitted in one cassette. B. Received in fixative is one container labeled with the patient's name and designated Descending polyp. The specimen consists of one irregular fragment of connors tissue that measures 0.3 cm. The specimen is totally submitted in one cassette. C. Received in fixative is one container labeled with the patient's name and designated Sigmoid polyp biopsy. The specimen consists of one irregular fragment of connors tissue that measures 0.6 cm. The specimen is totally submitted in one cassette. D. Received in fixative is one container labeled with the patient's name and designated Rectal polyp biopsy. The specimen consists of multiple irregular fragments of connors tissue that in aggregate measure 0.8 x 0.6 x 0.1 cm. The specimen is totally submitted in one cassette. [place] 07/17/2025 [facility]:[id number] -------- Patient Age/Sex Location Account Attending Physician -------- KALE SHEEHAN 69/M EN [id number] Dr. Lilian Kimbrough MD -------- Signed (signature on file) Dr. Mihir Ortiz MD 07/21/25 1553 -------- Normal [facility] Comment on above: Performed By: #### P SUIV ####[facility] [address] [place], [place], [id number] Post Void Residual Bladderon 06-20-2025 Post Void Residual Bladder [facility] Imaging Services [address] [place] [address] Post Void Residual Bladder MR#: [id number] Acct: [id number] Name: KALE SHEEHAN Rep #: [id number] : 1955 M 69 From: Verena Westfall PCP: Dr. Alexsander Casanova MD Status: REG CLI Study: Post Void Residual Bladder Date of Exam: 06/20 Exam# [id number] Ordering Dr: Alexsander Casanova MD PROCEDURE: POST [...] for UTIs and urinary reflux. Reading Location: [facility] CC: Dr. Alexsander Casanova MD Statistics Manager: Signed Normal [facility] Absolute lymphocyte countOrd ered By: Alexsander Casanova on 06-13-2025 Lymphocytes Auto (Unsp spec) [#/Vol] 1.86 10*3/uL 0.83-4.51 [facility] Absolute neutrophil countOrd ered By: Alexsander Casanova on 06-13-2025 Neutrophils (Bld) [#/Vol] 4.4 10*3/uL 2.0-7.7 [facility] Anion gap in Serum or Plasma Ordered By: Alexsander Casanova on 06-13-2025 Anion gap [Moles/Vol] 12 mmol/L 5- [facility] Automated lymphocyte count a s percentage of total leukocytesOrdered By: Alexsander Casanova on 06-13-2025 Lymphocytes/100 WBC Auto (Unsp spec) 24.6 % - [facility] BUN/creatinine ratioOrdered By: Alexsander Casanova on 06-13-2025 Urea nitrogen/Creatinine [Mass ratio] 10.3 mg/mg 10- [facility] Basophil percentageOrdered B y: Alexsander Casanova on 06-13-2025 Basophils/100 WBC (Bld) 0.5 % 0-1 [facility] Bilirubin Test strip Ql (U)O rdered By: Alexsander Casanova on 06-13-2025 Bilirubin Ql (U) Negative Negative [facility] Bilirubin, totalOrdered By: Alexsander Casanova on 06-13-2025 Bilirubin [Mass/Vol] 0.45 mg/dL 0.00-1.30 [facility] CBC W/Diff, Automatedon 05-27 Absolute Lymph 1.86 X10 3/uL Normal 0.83-4.51 [facility] Comment on above: Order Comment: Order Date: 06/12/25 Order Info: 0184-1 - CBCD Performed By: #### L 501.9520, L100.0100, L506.0400, L500.4050, L501.9985, L500.4100, L501.5200 #### [facility] [address] [place], [address] Absolute Neut 4.4 X10 3/uL Normal 2.0-7.7 [facility] Comment on above: Order Comment: Order Date: 06/12/25 Order Info: 0184-1 - CBCD Performed By: #### L 501.9520, L100.0100, L506.0400, L500.4050, L501.9985, L500.4100, L501.5200 #### [facility] [address] [place], [place], [phone] Basophils/100 WBC (Bld) 0.5 % Normal 0-1 [facility] Comment on above: Order Comment: Order Date: 06/12/25 Order Info: 0184-1 - CBCD Performed By: #### L 501.9520, L100.0100, L506.0400, L500.4050, L501.9985, L500.4100, L501.5200 #### [facility] [address] [place], [address] Eosinophils/100 WBC (Bld) 3.8 % Normal 0-5 [facility] Comment on above: Order Comment: Order Date: 06/12/25 Order Info: 0184-1 - CBCD Performed By: #### L 501.9520, L100.0100, L506.0400, L500.4050, L501.9985, L500.4100, L501.5200 #### [facility] [address] [place], [place], [id number] Erythrocyte distribution width (RBC) [Ratio] 11.9 % Normal 11.6-14.6 [facility] Comment on above: Order Comment: Order Date: 06/12/25 Order Info: 0184-1 - CBCD Performed By: #### L 501.9520, L100.0100, L506.0400, L500.4050, L501.9985, L500.4100, L501.5200 #### [facility] [address] [place], [address] Hematocrit (Bld) [Volume fraction] 41.6 % Normal 40-54 [facility] Comment on above: Order Comment: Order Date: 06/12/25 Order Info: 0184-1 - CBCD Performed By: #### L 501.9520, L100.0100, L506.0400, L500.4050, L501.9985, L500.4100, L501.5200 #### [facility] [address] [place], [address] Hemoglobin (Bld) [Mass/Vol] 14.1 g/dL Normal 13.0-16.5 [facility] Comment on above: Order Comment: Order Date: 06/12/25 Order Info: 018- - CBCD Performed By: #### L 501.9520, L100.0100, L506.0400, L500.4050, L501.9985, L500.4100, L501.5200 #### [facility] [address] [place], [address] ( IG% 0.400 Normal 0.0-0.9 [facility] Comment on above: Order Comment: Order Date: 06/12/25 Order Info: 01812-25 - CBCD Result Comment: IG% - Immature Granulocytes (promyelocytes, myelocytes and metamyelocytes) > 1% indicates that a LEFT SHIFT is Present. Performed By: #### L 501.9520, L100.0100, L506.0400, L500.4050, L501.9985, L500.4100, L501.5200 #### [facility] [address] [place], [address] Lymphocytes/100 WBC (Bld) 24.6 % Normal 19-41 [facility] Comment on above: Order Comment: Order Date: 06/12/25 Order Info: 0184- - CBCD Performed By: #### L 501.9520, L100.0100, L506.0400, L500.4050, L501.9985, L500.4100, L501.5200 #### [facility] [address] [place], [address] ( MCH (RBC) [Entitic mass] 32.1 pg High 27.0-32.0 [facility] Comment on above: Order Comment: Order Date: 06/12/25 Order Info: 0184- - CBCD Performed By: #### L 501.9520, L100.0100, L506.0400, L500.4050, L501.9985, L500.4100, L501.5200 #### [facility] [address] [place], [address] MCHC (RBC) [Mass/Vol] 33.9 g/dL Normal 32-36 [facility] Comment on above: Order Comment: Order Date: 06/12/25 Order Info: 0184-1 - CBCD Performed By: #### L 501.9520, L100.0100, L506.0400, L500.4050, L501.9985, L500.4100, L501.5200 #### [facility] [address] [place], [address] MCV (RBC) [Entitic vol] 94.8 fL High 80-94 [facility] Comment on above: Order Comment: Order Date: 06/12/25 Order Info: 0184- - CBCD Performed By: #### L 501.9520, L100.0100, L506.0400, L500.4050, L501.9985, L500.4100, L501.5200 #### [facility] [address] [place], [address] Monocytes/100 WBC (Bld) 12.5 % High 0-10 [facility] Comment on above: Order Comment: Order Date: 06/12/25 Order Info: 0184-1 - CBCD Performed By: #### L 501.9520, L100.0100, L506.0400, L500.4050, L501.9985, L500.4100, L501.5200 #### [facility] [address] [place], [address] Neutrophils/100 WBC (Bld) 58.2 % Normal 47-70 [facility] Comment on above: Order Comment: Order Date: 06/12/25 Order Info: 0184-1 - CBCD Performed By: #### L 501.9520, L100.0100, L506.0400, L500.4050, L501.9985, L500.4100, L501.5200 #### [facility] [address] [place], [address] Nucleated RBC (Bld) [#/Vol] 0 10*3/uL Normal 0-5 [facility] Comment on above: Order Comment: Order Date: 06/12/25 Order Info: 0184-1 - CBCD Performed By: #### L 501.9520, L100.0100, L506.0400, L500.4050, L501.9985, L500.4100, L501.5200 #### [facility] [address] [place], [address] Platelet mean volume (Bld) [Entitic vol] 12.0 fL Normal 6.2-12.0 [facility] Comment on above: Order Comment: Order Date: 06/12/25 Order Info: 0184-1 - CBCD Performed By: #### L 501.9520, L100.0100, L506.0400, L500.4050, L501.9985, L500.4100, L501.5200 #### [facility] [address] [place], [address] Platelets (Bld) [#/Vol] 191 10*3/uL Normal 150-450 [facility] Comment on above: Order Comment: Order Date: 06/12/25 Order Info: 0184-1 - CBCD Performed By: #### L 501.9520, L100.0100, L506.0400, L500.4050, L501.9985, L500.4100, L501.5200 #### [facility] [address] [place], [address] RBC (Bld) [#/Vol] 4.39 10*6/uL Low 4.6-6.2 [facility] Comment on above: Order Comment: Order Date: 06/12/25 Order Info: 0184-1 - CBCD Performed By: #### L 501.9520, L100.0100, L506.0400, L500.4050, L501.9985, L500.4100, L501.5200 #### [facility] [address] [place], [address] RDW SD 41.3 fl Normal 35.1-43.9 [facility] Comment on above: Order Comment: Order Date: 06/12/25 Order Info: 0184-1 - CBCD Performed By: #### L 501.9520, L100.0100, L506.0400, L500.4050, L501.9985, L500.4100, L501.5200 #### [facility] [address] [facility] [place], [address] WBC (Bld) [#/Vol] 7.6 10*3/uL Normal 4.4-11.0 [facility] Comment on above: Order Comment: Order Date: 06/12/25 Order Info: 0184-1 - CBCD Performed By: #### L 501.9520, L100.0100, L506.0400, L500.4050, L501.9985, L500.4100, L501.5200 #### [facility] [address] [facility] [place], [place], [id number] Calculated very low density lipoprotein (VLDL) cholesterol measurementOrdered By: Alexsander Casanova on 06-13-2025 Calculated very low density lipoprotein (VLDL) cholesterol measurement 17 mg/dL 5-40 [facility] Carbon dioxide, total [Moles /volume] in Central venous bloodOrdered By: Alexsander Casanova on 06-13-2025 CO2 [Moles/Vol] 24.4 mmol/L 21.0-32.0 [facility] Chloride assayOrdered By: Silvana Casanova on 06-13-2025 Chloride [Moles/Vol] 105 mmol/L 98-108 [facility] Comprehensive Metabolic Prof ilon 06-13-2025 Albumin [Mass/Vol] 4.3 g/dL Normal 3.4-4.8 [facility] Comment on above: Order Comment: Order Date: 06/12/25Order Info: 0786-1 - CMPOrder Info: [id number] - LIPIDOrder Info: [id number] - MGOrder Info: 3016-3 - TSHOrder Info: 3024-7 - T4F Performed By: #### L 501.9520, L100.0100, L506.0400, L500.4050, L501.9985, L500.4100, L501.5200 ####[facility] [address] [place], [address] Albumin/Globulin [Mass ratio] 1.6 {ratio} Normal 0.9-2.4 [facility] Comment on above: Order Comment: Order Date: 06/12/25Order Info: 0786- - CMPOrder Info: [id number] - LIPIDOrder Info: [id number] - MGOrder Info: 6-3 - TSHOrder Info: 3024-7 - T4F Performed By: #### L 501.9520, L100.0100, L506.0400, L500.4050, L501.9985, L500.4100, L501.5200 ####[facility] [address] [place], [address] ALK PHOS 78 U/L Normal 40-129 [facility] Comment on above: Order Comment: Order Date: 06/12/25Order Info: 0786-1 - CMPOrder Info: [id number] - LIPIDOrder Info: [id number] - MGOrder Info: [id number] - TSHOrder Info: 3024-7 - T4F Performed By: #### L 501.9520, L100.0100, L506.0400, L500.4050, L501.9985, L500.4100, L501.5200 ####[facility] [address] [place], [address] ALT [Catalytic activity/Vol] 31 U/L Normal <=46 [facility] Comment on above: Order Comment: Order Date: 06/12/25Order Info: 86-1 - CMPOrder Info: [id number] - LIPIDOrder Info: [id number] - MGOrder Info: 3 - TSHOrder Info: 302-7 - T4F Performed By: #### L 501.9520, L100.0100, L506.0400, L500.4050, L501.9985, L500.4100, L501.5200 ####[facility] [address] [place], [address] AST [Catalytic activity/Vol] 24 U/L Normal <=37 [facility] Comment on above: Order Comment: Order Date: 06/12/25Order Info: 86-1 - CMPOrder Info: [id number] - LIPIDOrder Info: [id number] - MGOrder Info: 3 - TSHOrder Info: 3024-7 - T4F Performed By: #### L 501.9520, L100.0100, L506.0400, L500.4050, L501.9985, L500.4100, L501.5200 ####[facility] [address] [place], [place], [address] Bilirubin [Mass/Vol] 0.45 mg/dL Normal 0.00-1.30 [facility] Comment on above: Order Comment: Order Date: 06/12/25Order Info: 86-1 - CMPOrder Info: [id number] - LIPIDOrder Info: [id number] - MGOrder Info: 3 - TSHOrder Info: 302-7 - T4F Performed By: #### L 501.9520, L100.0100, L506.0400, L500.4050, L501.9985, L500.4100, L501.5200 ####[facility] [address] [place], [address] BUN/CRE 10.3 RATIO Normal 10-20 [facility] Comment on above: Order Comment: Order Date: 06/12/25Order Info: 86-1 - CMPOrder Info: [id number] - LIPIDOrder Info: [id number] - MGOrder Info: 3 - TSHOrder Info: 3024-7 - T4F Performed By: #### L 501.9520, L100.0100, L506.0400, L500.4050, L501.9985, L500.4100, L501.5200 ####[facility] [address] [place], [address] Calcium [Mass/Vol] 9.6 mg/dL Normal 7.6-11.0 [facility] Comment on above: Order Comment: Order Date: 06/12/25Order Info: 86-1 - CMPOrder Info: [id number] - LIPIDOrder Info: [id number] - MGOrder Info: 3 - TSHOrder Info: 3023-7 - T4F Performed By: #### L 501.9520, L100.0100, L506.0400, L500.4050, L501.9985, L500.4100, L501.5200 ####[facility] [address] [place], [address] Chloride [Moles/Vol] 105 mmol/L Normal 98-108 [facility] Comment on above: Order Comment: Order Date: 06/12/25Order Info: 86-1 - CMPOrder Info: [id number] - LIPIDOrder Info: [id number] - MGOrder Info: 3 - TSHOrder Info: 3023-7 - T4F Performed By: #### L 501.9520, L100.0100, L506.0400, L500.4050, L501.9985, L500.4100, L501.5200 ####[facility] [address] [place], [address] CO2 [Moles/Vol] 24.4 mmol/L Normal 21.0-32.0 [facility] Comment on above: Order Comment: Order Date: 06/12/25Order Info: 0786-1 - CMPOrder Info: [id number] - LIPIDOrder Info: [id number] - MGOrder Info: [id number] - TSHOrder Info: 3023-7 - T4F Performed By: #### L 501.9520, L100.0100, L506.0400, L500.4050, L501.9985, L500.4100, L501.5200 ####[facility] [address] [place], [place], [address] Creatinine [Mass/Vol] 1.00 mg/dL Normal 0.70-1.20 [facility] Comment on above: Order Comment: Order Date: 06/12/25Order Info: 86-1 - CMPOrder Info: [id number] - LIPIDOrder Info: [id number] - MGOrder Info: [id number] - TSHOrder Info: 7 - T4F Performed By: #### L 501.9520, L100.0100, L506.0400, L500.4050, L501.9985, L500.4100, L501.5200 ####[facility] [address] [place], [address] GAP 12 Normal 5-15 [facility] Comment on above: Order Comment: Order Date: 06/12/25Order Info: 86-1 - CMPOrder Info: [id number] - LIPIDOrder Info: [id number] - MGOrder Info: 3 - TSHOrder Info: 302-7 - T4F Performed By: #### L 501.9520, L100.0100, L506.0400, L500.4050, L501.9985, L500.4100, L501.5200 ####[facility] [address] [place], [place], [address] GFR/1.73 sq M.predicted among non-blacks MDRD (S/P/Bld) [Vol rate/Area] 82 mL/min/{1.73_m2} Normal >60 [facility] Comment on above: Order Comment: Order Date: 06/12/25Order Info: 86-1 - CMPOrder Info: [id number] - LIPIDOrder Info: [id number] - MGOrder Info: 3 - TSHOrder Info: 3024-7 - T4F Result Comment: mL/m in/1.73m2 CKD-EPI Creatinine Equation (2020) Performed By: #### L 501.9520, L100.0100, L506.0400, L500.4050, L501.9985, L500.4100, L501.5200 ####[facility] [address] [place], [address] Globulin (S) [Mass/Vol] 2.7 g/dL Normal 2.2-4.2 [facility] Comment on above: Order Comment: Order Date: 06/12/25Order Info: 0786-1 - CMPOrder Info: [id number] - LIPIDOrder Info: [id number] - MGOrder Info: [id number] - TSHOrder Info: 3023-7 - T4F Performed By: #### L 501.9520, L100.0100, L506.0400, L500.4050, L501.9985, L500.4100, L501.5200 ####[facility] [address] [place], [address] Glucose [Mass/Vol] 81 mg/dL Normal 70-99 [facility] Comment on above: Order Comment: Order Date: 06/12/25Order Info: 0786-1 - CMPOrder Info: [id number] - LIPIDOrder Info: [id number] - MGOrder Info: 3 - TSHOrder Info: 3023-7 - T4F Performed By: #### L 501.9520, L100.0100, L506.0400, L500.4050, L501.9985, L500.4100, L501.5200 ####[facility] [address] [place], [address] Potassium [Moles/Vol] 4.1 mmol/L Normal 3.3-5.1 [facility] Comment on above: Order Comment: Order Date: 06/12/25Order Info: 0786-1 - CMPOrder Info: [id number] - LIPIDOrder Info: [id number] - MGOrder Info: 3 - TSHOrder Info: 302-7 - T4F Performed By: #### L 501.9520, L100.0100, L506.0400, L500.4050, L501.9985, L500.4100, L501.5200 ####[facility] [address] [place], [address] Sodium [Moles/Vol] 141 mmol/L Normal 133-145 [facility] Comment on above: Order Comment: Order Date: 06/12/25Order Info: 0786-1 - CMPOrder Info: [id number] - LIPIDOrder Info: [id number] - MGOrder Info: 3 - TSHOrder Info: 302-7 - T4F Performed By: #### L 501.9520, L100.0100, L506.0400, L500.4050, L501.9985, L500.4100, L501.5200 ####[facility] [address] [place], [address] T PROT 7.1 g/dL Normal 5.9-8.4 [facility] Comment on above: Order Comment: Order Date: 06/12/25Order Info: 0786-1 - CMPOrder Info: [id number] - LIPIDOrder Info: [id number] - MGOrder Info: 3 - TSHOrder Info: 302-7 - T4F Performed By: #### L 501.9520, L100.0100, L506.0400, L500.4050, L501.9985, L500.4100, L501.5200 ####[facility] [address] [place], [address] Urea nitrogen [Mass/Vol] 10 mg/dL Normal 4-19 [facility] Comment on above: Order Comment: Order Date: 06/12/25Order Info: 0786-1 - CMPOrder Info: [id number] - LIPIDOrder Info: [id number] - MGOrder Info: 3 - TSHOrder Info: 3024-7 - T4F Performed By: #### L 501.9520, L100.0100, L506.0400, L500.4050, L501.9985, L500.4100, L501.5200 ####[facility] [address] [place], [address] Eosinophil percentageOrdered By: Alexsander Casanova on 06-13-2025 Eosinophils/100 WBC (Bld) 3.8 % 0-5 [facility] Erythrocyte distribution wid th ratioOrdered By: Alexsander Casanova on 06-13-2025 Erythrocyte distribution width (RBC) [Ratio] 11.9 % 11.6-14.6 [facility] Erythrocyte distribution wid th standard deviationOrdered By: Alexsander Casanova on 06-13-2025 Erythrocyte distribution width (RBC) [Ratio] 41.3 fl 35.1-43.9 [facility] Glomerular filtration rate ( GFR) estimation/1.73 sq m using serum, plasma, or whole bOrdered By: Alexsander Casanova on 06-13-2025 GFR/1.73 sq M.predicted among non-blacks MDRD (S/P/Bld) [Vol rate/Area] 82 mL/min/{1.73_m2} >60 [facility] Comment on above: mL/min/1.73m2 CKD-EP I Creatinine Equation (2020) Hematocrit Auto (Bld) [Volum e fraction]Ordered By: Alexsander Casanova on 06-13-2025 Hematocrit (Bld) [Volume fraction] 41.6 % 40-54 [facility] Hemoglobin A1con 06-13-2025 HbA1c (Bld) [Mass fraction] 6.0 % High <=5.6 [facility] [facility] Comment on above: Order Comment: Order Date: 06/12/25Order Info: [id number] - A1C Result Comment: Norm al < 5.7 % Prediabetic 5.7 - 6.4 % Diabetic >or= 6.5 % Please note range changes. Performed By: #### L 501.9520, L100.0100, L506.0400, L500.4050, L501.9985, L500.4100, L501.5200 ####[facility] [address] [place], [address] Hemoglobin A1c percentageOrd ered By: Alexsander Casanova on 06-13-2025 HbA1c (Bld) [Mass fraction] 6.0 % High <5.7 [facility] Comment on above: Normal < 5.7 % Predi abetic 5.7 - 6.4 % Diabetic >or= 6.5 % Please note range changes. Hemoglobin measurementOrdere d By: Alexsander Casanova on 06-13-2025 Hemoglobin (Bld) [Mass/Vol] 14.1 g/dL 13.0-16.5 [facility] Immature granulocytes/100 WB C Auto (Bld)Ordered By: Alexsander Casanova on 06-13-2025 Immature granulocytes/100 WBC (Bld) 0.400 % 0.0-0.9 [facility] Comment on above: IG% - Immature Granu locytes (promyelocytes, myelocytes and metamyelocytes) > 1% indicates that a LEFT SHIFT is Present. Ketones Test strip Ql (U)Ord ered By: Alexsander Casanova on 06-13-2025 Ketones Ql (U) Negative Negative [facility] LDL calc ser/plasOrdered By: Alexsander Casanova on 06-13-2025 Cholesterol in LDL [Mass/Vol] 54 mg/dL [facility] Comment on above: Nwuhedqrfi=690-264 m g/dL & Higher Cfhi=677 mg/dL or greaterFriedwald Equation for LDL-C Laboratory - Chemistry and C hemistry - challengeOrdered By: Alexsander Casanova on 06-13-2025 AST [Catalytic activity/Vol] 24 U/L <38 [facility] Lipid Profileon 06-13-2025 CHOL:HDL 2.51 Normal [facility] Comment on above: Order Comment: Order Date: 06/12/25Order Info: [id number] - CMPOrder Info: [id number] - LIPIDOrder Info: [id number] - MGOrder Info: [id number] - TSHOrder Info: [id number] - T4F Performed By: #### L 501.9520, L100.0100, L506.0400, L500.4050, L501.9985, L500.4100, L501.5200 ####[facility] [address] [place], [address] Cholesterol [Mass/Vol] 117 mg/dL Normal <=200 [facility] Comment on above: Order Comment: Order Date: 06/12/25Order Info: [id number] - CMPOrder Info: [id number] - LIPIDOrder Info: [id number] - MGOrder Info: 3 - TSHOrder Info: [id number] - T4F Result Comment: Chol esterol level, Desirable <200 mg/dL Borderline high cholesterol 200-239 mg/dL High cholesterol >=240 mg/dL Recommendations of the NCEP Adult Treatment Panel for the following risk-cutoff thresholds for the [place] population. Performed By: #### L 501.9520, L100.0100, L506.0400, L500.4050, L501.9985, L500.4100, L501.5200 ####[facility] [address] [place], [address] Cholesterol in HDL [Mass/Vol] 47 mg/dL Normal [facility] Comment on above: Order Comment: Order Date: 06/12/25Order Info: 07 - CMPOrder Info: [id number] - LIPIDOrder Info: [id number] - MGOrder Info: 3 - TSHOrder Info: [...] 501.9520, L100.0100, L506.0400, L500.4050, L501.9985, L500.4100, L501.5200 ####[facility] [address] [place], [address] Cholesterol in LDL [Mass/Vol] 54 mg/dL Normal [facility] Comment on above: Order Comment: Order Date: 06/12/25Order Info: [id number] - CMPOrder Info: [id number] - LIPIDOrder Info: [id number] - MGOrder Info: 3 - TSHOrder Info: [id number] - T4F Result Comment: Bord bajqle=814-991 mg/dL Higher Kmxa=169 mg/dL or greater Friedwald Equation for LDL-C Performed By: #### L 501.9520, L100.0100, L506.0400, L500.4050, L501.9985, L500.4100, L501.5200 ####[facility] [address] [place], [place], [id number]) Cholesterol in VLDL [Mass/Vol] 17 mg/dL Normal 5-40 [facility] Comment on above: Order Comment: Order Date: 06/12/25Order Info: [id number] - CMPOrder Info: - LIPIDOrder Info: [id number] - MGOrder Info: 3 - TSHOrder Info: 7 - T4F Performed By: #### L 501.9520, L100.0100, L506.0400, L500.4050, L501.9985, L500.4100, L501.5200 ####[facility] [address] [place], [place], [address](163) Triglyceride [Mass/Vol] 83 mg/dL Normal [facility] Comment on above: Order Comment: Order Date: 06/12/25Order Info: [id number] - CMPOrder Info: - LIPIDOrder Info: [id number] - MGOrder Info: 3 - TSHOrder Info: [id number] - T4F Result Comment: The drugs N-Acetylcysteine and Metamizole may falsely depress this assay. Normal range: <150 mg/dL Borderline High: 150-199 mg/dL High: 200-499 mg/dL Very High: >500 mg/dL Performed By: #### L 501.9520, L100.0100, L506.0400, L500.4050, L501.9985, L500.4100, L501.5200 ####[facility] [address] [place], [place], [id number] MCV (mean corpuscular volume ) determinationOrdered By: Alexsander Casanova on 06-13-2025 MCV (RBC) [Entitic vol] 94.8 fL High 80-94 [facility] Magnesiumon 06-13-2025 Magnesium [Mass/Vol] 2.2 mg/dL Normal 1.5-2.2 [facility] Comment on above: Order Comment: Order Date: 06/12/25Order Info: [id number] - CMPOrder Info: [id number] - LIPIDOrder Info: [id number] - MGOrder Info: [id number] - TSHOrder Info: [id number] - T4F Performed By: #### L 501.9520, L100.0100, L506.0400, L500.4050, L501.9985, L500.4100, L501.5200 ####[facility] [address] [place], [address] Magnesium measurement (mass/ volume)Ordered By: Alexsander Casanova on 06-13-2025 Magnesium (Unsp spec) [Mass/Vol] 2.2 mg/dL 1.5-2.2 [facility] Mean corpuscular hemoglobin (MCH) determinationOrdered By: Alexsander Casanova on 06-13-2025 MCH (RBC) [Entitic mass] 32.1 pg High 27.0-32.0 [facility] Mean corpuscular hemoglobin concentration (MCHC) determinationOrdered By: Alexsander Casanova on 06-13-2025 MCHC (RBC) [Mass/Vol] 33.9 g/dL 32-36 [facility] Mean platelet volume determi nationOrdered By: Alexsander Casanova on 06-13-2025 Platelet mean volume (Bld) [Entitic vol] 12.0 fL 6.2-12.0 [facility] Microscopic analysis of urin e for red blood cells (RBC)Ordered By: Alexsander Casanova on 06-13-2025 Microscopic analysis of urine for red blood cells (RBC) 0 SEEN /hpf 0-5 [facility] Monocyte percentageOrdered B y: Alexsander Casanova on 06-13-2025 Monocytes/100 WBC (Bld) 12.5 % High 0-10 [facility] Mucus LM Ql (Urine sed)Order ed By: Alexsander Casanova on 06-13-2025 Mucus Ql (Urine sed) 0 SEEN /hpf [facility] Neutrophil percentageOrdered By: Alexsander Casanova on 06-13-2025 Neutrophils/100 WBC (Bld) 58.2 % 47-70 [facility] Nitrite Test strip Ql (U)Ord ered By: Alexsander Casanova on 06-13-2025 Nitrite Ql (U) Negative Negative [facility] Nucleated red blood cell per centageOrdered By: Alexsander Casanova on 06-13-2025 Nucleated RBC/100 WBC (Bld) [Ratio] 0 % 0-5 [facility] Platelet countOrdered By: Silvana Casanova on 06-13-2025 Platelets (Bld) [#/Vol] 191 10*3/uL 150-450 [facility] Potassium measurement (mass/ volume)Ordered By: Alexsander Casanova on 06-13-2025 Potassium (Unsp spec) [Mass/Vol] 4.1 mmol/L 3.3-5.1 [facility] Protein Test strip Ql (U)Ord ered By: Alexsander Casanova on 06-13-2025 Protein Ql (U) Negative Negative [facility] RBC Auto (Bld) [#/Vol]Ordere d By: Alexsander Casanova on 06-13-2025 RBC (Bld) [#/Vol] 4.39 10*6/uL Low 4.6-6.2 [facility] Screening total cholesterol/ high density lipoprotein (HDL) cholesterol ratioOrdered By: Alexsander Casanova on 06-13-2025 Cholesterol.total/Choles terol in HDL [Mass ratio] 2.51 {ratio} [facility] Serum creatinine measurement (mass/volume)Ordered By: Alexsander Casanova on 06-13-2025 Creatinine [Mass/Vol] 1.00 mg/dL 0.70-1.20 [facility] Serum globulin measurementOr dered By: Alexsander Casanova on 09-18-2025 Globulin (S) [Mass/Vol] 2.7 g/dL 2.2-4.2 [facility] Serum glucose measurement (m ass/volume)Ordered By: Alexsander Casanova on 06-13-2025 Glucose [Mass/Vol] 81 mg/dL 70-99 [facility] Serum or plasma alanine ramos otransferase (ALT) measurementOrdered By: Alexsander Casanova on 06-13-2025 ALT [Catalytic activity/Vol] 31 U/L <47 [facility] Serum or plasma albumin butch urement (mass/volume)Ordered By: Alexsander Casanova on 06-13-2025 Albumin [Mass/Vol] 4.3 g/dL 3.4-4.8 [facility] Serum or plasma albumin/glob ulin mass ratioOrdered By: Alexsander Casanova on 06-13-2025 Albumin/Globulin [Mass ratio] 1.6 {ratio} 0.9-2.4 [facility] Serum or plasma alkaline milan sphatase measurementOrdered By: Alexsander Casanova on 06-13-2025 ALP [Catalytic activity/Vol] 78 U/L 40-129 [facility] Serum or plasma calcium butch urement (mass/volume)Ordered By: Alexsander Casanova on 06-13-2025 Calcium [Mass/Vol] 9.6 mg/dL 7.6-11.0 [facility] Serum or plasma cholesterol in HDL measurement (mass/volume)Ordered By: Alexsander Casanova on 06-13-2025 Cholesterol in HDL [Mass/Vol] 47 mg/dL >40 [facility] Comment on above: National Cholesterol Education Program (NCEP) guidelines:<40 mg/dL: Low HDL-cholesterol (major risk factor for CHD)>= 60 mg/dL: High HDL-cholesterol (negative risk factor for CHD)HDL-cholesterol is affected by a number of factors, e.g. smoking, exercise, hormones, sex and age. Serum or plasma cholesterol measurement (mass/volume)Ordered By: Alexsander Casanova on 06-13-2025 Cholesterol [Mass/Vol] 117 mg/dL <201 [facility] Comment on above: Cholesterol level, D esirable <200 mg/dLBorderline high cholesterol 200-239 mg/dLHigh cholesterol >=240 mg/dLRecommendations of the NCEP Adult Treatment Panel for the following risk-cutoff thresholds for the [place] population. Serum or plasma urea nitroge n measurement (mass/volume)Ordered By: Alexsander Casanova on 06-13-2025 Urea nitrogen [Mass/Vol] 10 mg/dL 4-19 [facility] Sodium levelOrdered By: Alexsander Casanova on 06-13-2025 Sodium [Moles/Vol] 141 mmol/L 133-145 [facility] Squamous epithelial cells de tection in urine sediment by light microscopyOrdered By: Alexsander Casanova on 06-13-2025 Epithelial cells.squamous LM Ql (Urine sed) 0-5 SEEN /hpf 0-5 [facility] T4 Free Directon 06-13-2025 T4 FREE DIRECT 1.20 ng/dL Normal 0.76-1.46 [facility] Comment on above: Order Comment: Order Date: 06/12/25Order Info: [id number] - CMPOrder Info: [id number] - LIPIDOrder Info: [id number] - MGOrder Info: 3 - TSHOrder Info: [id number] - T4F Performed By: #### L 501.9520, L100.0100, L506.0400, L500.4050, L501.9985, L500.4100, L501.5200 ####[facility] [address] [place], [address] T4 freeOrdered By: Alexsander del real on 06-13-2025 Free T4 [Mass/Vol] 1.20 ng/dL 0.76-1.46 [facility] TSH DL <= 0.005 mIU/L QnOrde red By: Alexsander Casanova on 06-13-2025 TSH Qn 2.540 uIU/mL 0.300-4.200 [facility] Thyroid Stim Hormone (TSH)on 06-13-2025 TSH 2.540 uIU/mL Normal 0.300-4.200 [facility] Comment on above: Order Comment: Order Date: 06/12/25Order Info: [id number] - CMPOrder Info: [id number] - LIPIDOrder Info: [id number] - MGOrder Info: 3 - TSHOrder Info: 7 - T4F Performed By: #### L 501.9520, L100.0100, L506.0400, L500.4050, L501.9985, L500.4100, L501.5200 ####[facility] [address] [place], [address] Total proteinOrdered By: Eric Casanova on 06-13-2025 Protein [Mass/Vol] 7.1 g/dL 5.9-8.4 [facility] Triglycerides measurementOrd ered By: Alexsander Casanova on 06-13-2025 Triglyceride [Mass/Vol] 83 mg/dL <199 [facility] Comment on above: The drugs N-Acetylcy steine and Metamizole may falsely depress this assay. Normal range: <150 mg/dLBorderline High: 150-199 mg/dLHigh: 200-499 mg/dLVery High: >500 mg/dL Urinalysis, Completeon 06-13 EPI,SQUAMOUS 0-5 SEEN Normal 0-5 [facility] Comment on above: Order Comment: Urine , Random Performed By: #### L 400.0001, L506.1001 ####[facility] [address] [place], [address] WBC 0-5 SEEN Normal 0-5 [facility] Comment on above: Order Comment: Urine , Random Performed By: #### L 400.0001, L506.1001 ####[facility] [address] [place], [address] BACTERIA 0 SEEN Normal None Seen [facility] Comment on above: Order Comment: Urine , Random Performed By: #### L 400.0001, L506.1001 ####[facility] [address] [place], [address] Mucus Ql (Urine sed) 0 SEEN Normal [facility] Comment on above: Order Comment: Urine , Random Performed By: #### L 400.0001, L506.1001 ####[facility] [address] [place], [address] RBC 0 SEEN Normal 0-5 [facility] Comment on above: Order Comment: Urine , Random Performed By: #### L 400.0001, L506.1001 ####[facility] [address] [place], [address] Urine clarityOrdered By: Eric Casanova on 06-13-2025 Clarity (U) Clear Clear [facility] Urine color determinationOrd ered By: Alexsander Casanova on 06-13-2025 Color (U) Straw Yellow [facility] Urine glucose detectionOrder ed By: Alexsander Casanova on 06-13-2025 Glucose Ql (U) Normal mg/dl Normal [facility] Urine leukocyte esterase det ection by dipstickOrdered By: Alexsander Casanova on 06-13-2025 Leukocyte esterase Test strip Ql (U) Negative Negative [facility] Urine pHOrdered By: Alexsander appiah on 06-13-2025 pH (U) 8.0 [pH] 5.0 - 8.0 [facility] Urine sediment bacteria coun t by microscopy (number/high power field)Ordered By: Alexsander Casanova on 06-13-2025 Bacteria LM.HPF (Urine sed) [#/Area] 0 /[HPF] None Seen [facility] Urine specific gravity measu rementOrdered By: Alexsander Casaonva on 06-13-2025 Specific gravity (U) [Rel density] 1.010 1.002-1.030 [facility] Urine urobilinogen measureme ntOrdered By: Alexsander Casanova on 06-13-2025 Urobilinogen Ql (U) Normal mg/dl Normal [facility] Vitamin D,25 Hydroxyon 06-13 Vitamin D 25-OH 53.3 ng/mL Normal 30-100 [facility] Comment on above: Order Comment: Order Date: 06/12/25Order Info: [id number] - CMPOrder Info: [id number] - LIPIDOrder Info: [id number] - MGOrder Info: [id number] - TSHOrder Info: [id number] - T4F Result Comment: Laurita min D Status Deficiency: <20 ng/mL (50nmol/L) Insufficiency: 20-30 ng/mL (50-75 nmol/L) Sufficiency: 30-100 ng/mL (75-250 nmol/L) Toxicity: >100 ng/mL (>250 nmol/L) Performed By: #### L 400.0001, L506.1001 ####[facility] [address] [place], [address] White blood cell (WBC) count Ordered By: Alexsander Casanova on 06-13-2025 WBC (Bld) [#/Vol] 7.6 10*3/uL 4.4-11.0 [facility] White blood cell countOrdere d By: Alexsander Casanova on 06-13-2025 White blood cell count 0-5 SEEN /hpf 0-5 [facility] Pulmonary Visit Reporton Pulmonary Visit Report [facility] [place] [address] [place] [address] OFFICE VISIT Date of Service: 05/01/25 MR#: [id number] Acct: [id number] Name: KALE SHEEHAN Rep #: [id number] : 1955 Provider: ANANDA West Age/Sex: 69/M Location: [facility] Status: Signed Assessment and Plan Assessment [...] Additional Comments: This note was generated with [employer] dictation software. It may contain incorrect words, [...] M FU Chief Complaint: 3 month f/u Sound Recordist Required: No DME Vendor: Donnie Accompanied by: [...] budesonide 16 (more content not included)... Normal [facility] Pulmonary Visit Reporton Pulmonary Visit Report [facility] [address] [place] [address] OFFICE VISIT Date of Service: 01/02/25 MR#: [id number] Acct: [id number] Name: KALE SHEEHAN Rep #: [id number] : 1955 Provider: ANANDA West Age/Sex: 69/M Location: [facility] Status: Signed Assessment and Plan Assessment and [...] but was able to control it with nzpk-njx-oqgqcnn cough medication. He is compliant with Breztri [...] M FU Chief Complaint: 3 month f/u Sound Recordist Required: No Accompanied by: Self Allergies ibuprofen Allergy (Mild, Verified 0 (more content not included)... Normal [facility] Low Dose CT Lung Screeningon 12-26-[address] Lung Screening [facility] Imaging Services [address] [place] [id number] Lung Screening MR#: [id number] Acct: [id number] Name: KALE SHEEHAN Rep #: [id number] : 1955 M 69 From: Choco lopez MD PCP: Dr. Alexsander Casanova MD Status: REG CLI Study: Low Dose CT Lung Screening Date of Exam: 12/26 Exam# [id number] Ordering Dr: Elissa West NP ROPING TENDER-C PROCEDURE: LOW DOSE CT LUNG SCREENING 12/26/2024 [...] use of iterative reconstruction technique). REFERENCE LINK: [employer] Lung-RADS RADIATION DOSE SUMMARY: CTDlvol: 4.02 mGy [...] LDCT. Other Significant Findings: None. Reading Location: [place] [address] CC: ANANDA West; Dr. Alexsander Casanova MD Statistics Manager: Signed Normal [facility] Post Void Residual Bladderon 09-07-2024 Post Void Residual Bladder [facility] Imaging Services [address] [place] [address] Post Void Residual Bladder MR#: [id number] Acct: [id number] Name: KALE SHEEHAN Rep #: [id number] : 1955 M 68 From: Eris Warren MD PCP: Dr. Alexsander Casanova MD Status: REG CLI Study: Post Void Residual Bladder Date of Exam: 09/07 Exam# [id number] Ordering Dr: Alexsander Casanova MD [id number] STUDY: ULTRASOUND - URINARY BLADDER REASON FOR [...] EST , CC: Dr. Alexsander Casanova MD Statistics Manager: Signed Normal [facility] Hemoglobin A1con 08-31-2024 HbA1c (Bld) [Mass fraction] 5.8 % High 3.8-5.6 [facility] Comment on above: Order Comment: Order Date: 08/30/24 Order Info: [id number] - A1C Result Comment: Norm al < 5.7 % Prediabetic 5.7 - 6.4 % Diabetic >or= 6.5 % Please note range changes. Performed By: #### L 506.1000, L506.0400, L501.9985, L100.0100, L500.4050, L500.4100 #### [facility] [address] [place], [place], [address] Vitamin D,25 Hydroxyon 08-31 Vitamin D 25-OH 80.8 ng/mL Normal [facility] Comment on above: Order Comment: Order Date: 08/30/24 Order Info: [id number] - VITD25 Result Comment: Laurita min D 25(OH) Status Range Deficiency <20 ng/mL (50nmol/L) Insufficiency 20 - 30 ng/mL (50 - 75 nmol/L) Sufficiency 30 - 100 ng/mL (75 - 250 nmol/L) Toxicity >100 ng/mL (>250 nmol/L) Performed By: #### L 506.1000, L506.0400, L501.9985, L100.0100, L500.4050, L500.4100 #### [facility] [address] [place], [place], [address] 06-NH-Ygvsffu DOrdered By: Yvrose Casanova on 08-30-2024 Vitamin D 25-Hydroxy 80.8 ng/mL [facility] Comment on above: Vitamin D 25(OH) Sta tus Range Deficiency <20 ng/mL (50nmol/L) Insufficiency 20 - 30 ng/mL (50 - 75 nmol/L) Sufficiency 30 - 100 ng/mL (75 - 250 nmol/L) Toxicity >100 ng/mL (>250 nmol/L) Absolute neutrophil countOrd ered By: Alexsander Casanova on 08-30-2024 Neutrophils (Bld) [#/Vol] 5.5 10*3/uL 2.0-7.7 [facility] Albumin to globulin ratioOrd ered By: Alexsander Casanova on 08-30-2024 Albumin/Globulin [Mass ratio] 1.3 {ratio} 0.9-2.4 [facility] Basophil percentageOrdered B y: Alexsander Casanova on 08-30-2024 Basophils/100 WBC (Bld) 0.5 % 0-1 [facility] Bilirubin Test strip Ql (U)O rdered By: Alexsander Casanova on 08-30-2024 Bilirubin Ql (U) Negative Negative [facility] Bilirubin, totalOrdered By: Alexsander Casanova on 08-30-2024 Bilirubin [Mass/Vol] 0.50 mg/dL 0.20-1.00 [facility] Comment on above: For patients on eltr ombopag therapy, use of Dimension [place] TBIL is not recommended. Blood urea nitrogen (BUN)/cr eatinine ratioOrdered By: Alexsander Casanova on 08-30-2024 Urea nitrogen/Creatinine [Mass ratio] 17.2 mg/mg 10-20 [facility] CBC W/Diff, Automatedon Absolute Lymph 1.75 X10 3/uL Normal 0.83-4.51 [facility] Comment on above: Order Comment: Order Date: 08/30/24 Order Info: [id number] - CBCD Performed By: #### L 506.1000, L506.0400, L501.9985, L100.0100, L500.4050, L500.4100 #### [facility] [address] [place], [place], [address] Absolute Neut 5.5 X10 3/uL Normal 2.0-7.7 [facility] Comment on above: Order Comment: Order Date: 08/30/24 Order Info: 0184-1 - CBCD Performed By: #### L 506.1000, L506.0400, L501.9985, L100.0100, L500.4050, L500.4100 #### [facility] [address] [place], [address] Basophils/100 WBC (Bld) 0.5 % Normal 0-1 [facility] Comment on above: Order Comment: Order Date: 08/30/24 Order Info: 0184-1 - CBCD Performed By: #### L 506.1000, L506.0400, L501.9985, L100.0100, L500.4050, L500.4100 #### [facility] [address] [place], [address] Eosinophils/100 WBC (Bld) 1.0 % Normal 0-5 [facility] Comment on above: Order Comment: Order Date: 08/30/24 Order Info: 0184- - CBCD Performed By: #### L 506.1000, L506.0400, L501.9985, L100.0100, L500.4050, L500.4100 #### [facility] [address] [place], [address] Erythrocyte distribution width (RBC) [Ratio] 12.0 % Normal 11.6-14.6 [facility] Comment on above: Order Comment: Order Date: 08/30/24 Order Info: 0184- - CBCD Performed By: #### L 506.1000, L506.0400, L501.9985, L100.0100, L500.4050, L500.4100 #### [facility] [address] [place], [address] Hematocrit (Bld) [Volume fraction] 45.5 % Normal 40-54 [facility] Comment on above: Order Comment: Order Date: 08/30/24 Order Info: 0184- - CBCD Performed By: #### L 506.1000, L506.0400, L501.9985, L100.0100, L500.4050, L500.4100 #### [facility] [address] [place], [address] Hemoglobin (Bld) [Mass/Vol] 15.4 g/dL Normal 13.0-16.5 [facility] Comment on above: Order Comment: Order Date: 08/30/24 Order Info: 0184- - CBCD Performed By: #### L 506.1000, L506.0400, L501.9985, L100.0100, L500.4050, L500.4100 #### [facility] [address] [place], [address] IG% 0.700 Normal 0.0-0.9 [facility] Comment on above: Order Comment: Order Date: 08/30/24 Order Info: 0184-1 - CBCD Result Comment: IG% - Immature Granulocytes (promyelocytes, myelocytes and metamyelocytes) > 1% indicates that a LEFT SHIFT is Present. Performed By: #### L 506.1000, L506.0400, L501.9985, L100.0100, L500.4050, L500.4100 #### [facility] [address] [place], [address] Lymphocytes/100 WBC (Bld) 21.1 % Normal 19-41 [facility] Comment on above: Order Comment: Order Date: 08/30/24 Order Info: 0184- - CBCD Performed By: #### L 506.1000, L506.0400, L501.9985, L100.0100, L500.4050, L500.4100 #### [facility] [address] [place], [address] MCH (RBC) [Entitic mass] 32.4 pg High 27.0-32.0 [facility] Comment on above: Order Comment: Order Date: 08/30/24 Order Info: 0184-1 - CBCD Performed By: #### L 506.1000, L506.0400, L501.9985, L100.0100, L500.4050, L500.4100 #### [facility] [address] [place], [address] MCHC (RBC) [Mass/Vol] 33.8 g/dL Normal 32-36 [facility] Comment on above: Order Comment: Order Date: 08/30/24 Order Info: 0184-1 - CBCD Performed By: #### L 506.1000, L506.0400, L501.9985, L100.0100, L500.4050, L500.4100 #### [facility] [address] [facility] [place], [address] MCV (RBC) [Entitic vol] 95.8 fL High 80-94 [facility] Comment on above: Order Comment: Order Date: 08/30/24 Order Info: 0184-1 - CBCD Performed By: #### L 506.1000, L506.0400, L501.9985, L100.0100, L500.4050, L500.4100 #### [facility] [address] [place], [address] Monocytes/100 WBC (Bld) 10.7 % High 0-10 [facility] Comment on above: Order Comment: Order Date: 08/30/24 Order Info: [id number] - CBCD Performed By: #### L 506.1000, L506.0400, L501.9985, L100.0100, L500.4050, L500.4100 #### [facility] [address] [place], [address] Neutrophils/100 WBC (Bld) 66.0 % Normal 47-70 [facility] Comment on above: Order Comment: Order Date: 08/30/24 Order Info: 0184- - CBCD Performed By: #### L 506.1000, L506.0400, L501.9985, L100.0100, L500.4050, L500.4100 #### [facility] [address] [place], [address] Nucleated RBC (Bld) [#/Vol] 0 10*3/uL Normal 0-5 [facility] Comment on above: Order Comment: Order Date: 08/30/24 Order Info: 0184-1 - CBCD Performed By: #### L 506.1000, L506.0400, L501.9985, L100.0100, L500.4050, L500.4100 #### [facility] [address] [place], [address] Platelet mean volume (Bld) [Entitic vol] 11.6 fL Normal 6.2-12.0 [facility] Comment on above: Order Comment: Order Date: 08/30/24 Order Info: [id number] - CBCD Performed By: #### L 506.1000, L506.0400, L501.9985, L100.0100, L500.4050, L500.4100 #### [facility] [address] [place], [address] Platelets (Bld) [#/Vol] 215 10*3/uL Normal 150-450 [facility] Comment on above: Order Comment: Order Date: 08/30/24 Order Info: 0184- - CBCD Performed By: #### L 506.1000, L506.0400, L501.9985, L100.0100, L500.4050, L500.4100 #### [facility] [address] [place], [address] RBC (Bld) [#/Vol] 4.75 10*6/uL Normal 4.6-6.2 [facility] Comment on above: Order Comment: Order Date: 08/30/24 Order Info: 0184- - CBCD Performed By: #### L 506.1000, L506.0400, L501.9985, L100.0100, L500.4050, L500.4100 #### [facility] [address] [place], [address] RDW SD 42.3 fl Normal 35.1-43.9 [facility] Comment on above: Order Comment: Order Date: 08/30/24 Order Info: 0184-1 - CBCD Performed By: #### L 506.1000, L506.0400, L501.9985, L100.0100, L500.4050, L500.4100 #### [facility] [address] [place], [address] WBC (Bld) [#/Vol] 8.3 10*3/uL Normal 4.4-11.0 [facility] Comment on above: Order Comment: Order Date: 08/30/24 Order Info: 0184-1 - CBCD Performed By: #### L 506.1000, L506.0400, L501.9985, L100.0100, L500.4050, L500.4100 #### [facility] [address] [place], [address] Carbon dioxide measurementOr dered By: Alexsander Casanova on 08-30-2024 CO2 [Moles/Vol] 28.0 mmol/L 21.0-32.0 [facility] Chloride measurementOrdered By: Alexsander Casanova on 08-30-2024 Chloride [Moles/Vol] 102 mmol/L 98-107 [facility] Metabolic Prof ilon 08-30-2024 Albumin [Mass/Vol] 4.3 g/dL Normal 3.2-5.0 [facility] Comment on above: Order Comment: Order Date: 08/30/24 Order Info: 0786-1 - CMP Order Info: [id number] - LIPID Order Info: 3024-7 - T4F Performed By: #### L 506.1000, L506.0400, L501.9985, L100.0100, L500.4050, L500.4100 #### [facility] [address] [place], [address] Albumin/Globulin [Mass ratio] 1.3 {ratio} Normal 0.9-2.4 [facility] Comment on above: Order Comment: Order Date: 08/30/24 Order Info: 0786-1 - CMP Order Info: [id number] - LIPID Order Info: 3024-7 - T4F Performed By: #### L 506.1000, L506.0400, L501.9985, L100.0100, L500.4050, L500.4100 #### [facility] [address] [place], [address] ALK P 66 U/L Normal 45-117 [facility] Comment on above: Order Comment: Order Date: 08/30/24 Order Info: 0786-1 - CMP Order Info: [id number] - LIPID Order Info: 3024-03 - T4F Performed By: #### L 506.1000, L506.0400, L501.9985, L100.0100, L500.4050, L500.4100 #### [facility] [address] [place], [place], [id number] ALT [Catalytic activity/Vol] 30 U/L Normal 16-61 [facility] Comment on above: Order Comment: Order Date: 08/30/24 Order Info: 785- - CMP Order Info: - LIPID Order Info: 3024-03 - T4F Performed By: #### L 506.1000, L506.0400, L501.9985, L100.0100, L500.4050, L500.4100 #### [facility] [address] [place], [place], [id number] AST [Catalytic activity/Vol] 19 U/L Normal 15-37 [facility] Comment on above: Order Comment: Order Date: 08/30/24 Order Info: [id number] - CMP Order Info: - LIPID Order Info: 3024-03 - T4F Performed By: #### L 506.1000, L506.0400, L501.9985, L100.0100, L500.4050, L500.4100 #### [facility] [address] [place], [place], [id number] Bilirubin [Mass/Vol] 0.50 mg/dL Normal 0.20-1.00 [facility] Comment on above: Order Comment: Order Date: 08/30/24 Order Info: 0786-1 - CMP Order Info: [id number] - LIPID Order Info: 3024-03 - T4F Result Comment: For patients on eltrombopag therapy, use of Dimension [place] TBIL is not recommended. Performed By: #### L 506.1000, L506.0400, L501.9985, L100.0100, L500.4050, L500.4100 #### [facility] [address] [place], [address] BUN/CRE 17.2 RATIO Normal 10-20 [facility] Comment on above: Order Comment: Order Date: 08/30/24 Order Info: 86-1 - CMP Order Info: [id number] - LIPID Order Info: 302-7 - T4F Performed By: #### L 506.1000, L506.0400, L501.9985, L100.0100, L500.4050, L500.4100 #### [facility] [address] [place], [address] CA,Total 9.4 mg/dL Normal 8.5-10.1 [facility] Comment on above: Order Comment: Order Date: 08/30/24 Order Info: 785-1 - CMP Order Info: [id number] - LIPID Order Info: 7 - T4F Performed By: #### L 506.1000, L506.0400, L501.9985, L100.0100, L500.4050, L500.4100 #### [facility] [address] [place], [address] Chloride [Moles/Vol] 102 mmol/L Normal 98-107 [facility] Comment on above: Order Comment: Order Date: 08/30/24 Order Info: 0786-1 - CMP Order Info: [id number] - LIPID Order Info: 302-7 - T4F Performed By: #### L 506.1000, L506.0400, L501.9985, L100.0100, L500.4050, L500.4100 #### [facility] [address] [place], [address] CO2 [Moles/Vol] 28.0 mmol/L Normal 21.0-32.0 [facility] Comment on above: Order Comment: Order Date: 08/30/24 Order Info: 0786-1 - CMP Order Info: [id number] - LIPID Order Info: 3024-7 - T4F Performed By: #### L 506.1000, L506.0400, L501.9985, L100.0100, L500.4050, L500.4100 #### [facility] [address] [place], [place], [id number] Creatinine [Mass/Vol] 1.22 mg/dL Normal 0.70-1.30 [facility] Comment on above: Order Comment: Order Date: 08/30/24 Order Info: 785- - CMP Order Info: [id number] - LIPID Order Info: 3024-03 - T4F Result Comment: The validity of the calculated GFR GFRAA in patients over 70 years has not been determined. Clinical correlation is essential. Performed By: #### L 506.1000, L506.0400, L501.9985, L100.0100, L500.4050, L500.4100 #### [facility] [address] [place], [place], [id number] EST GFR - AA 76 mL/min Normal >60 [facility] Comment on above: Order Comment: Order Date: 08/30/24 Order Info: 785-09 - CMP Order Info: [id number] - LIPID Order Info: 3024-03 - T4F Result Comment: Afri can [place] GFR Calc Performed By: #### L 506.1000, L506.0400, L501.9985, L100.0100, L500.4050, L500.4100 #### [facility] [address] [place], [place], [id number] GAP 6 Normal 5-15 [facility] Comment on above: Order Comment: Order Date: 08/30/24 Order Info: 0786 - CMP Order Info: [id number] - LIPID Order Info: 3024-03 - T4F Performed By: #### L 506.1000, L506.0400, L501.9985, L100.0100, L500.4050, L500.4100 #### [facility] [address] [place], [place], [address] [phone] GFR/1.73 sq M.predicted among non-blacks MDRD (S/P/Bld) [Vol rate/Area] 63 mL/min/{1.73_m2} Normal >60 [facility] Comment on above: Order Comment: Order Date: 08/30/24 Order Info: 0786-1 - CMP Order Info: [id number] - LIPID Order Info: 302-7 - T4F Result Comment: Non- GFR Calc Performed By: #### L 506.1000, L506.0400, L501.9985, L100.0100, L500.4050, L500.4100 #### [facility] [address] [place], [address] Globulin (S) [Mass/Vol] 3.3 g/dL Normal 2.2-4.2 [facility] Comment on above: Order Comment: Order Date: 08/30/24 Order Info: 0786- - CMP Order Info: [id number] - LIPID Order Info: 3027 - T4F Performed By: #### L 506.1000, L506.0400, L501.9985, L100.0100, L500.4050, L500.4100 #### [facility] [address] [place], [address] Glucose [Mass/Vol] 82 mg/dL Normal 74-106 [facility] Comment on above: Order Comment: Order Date: 08/30/24 Order Info: 0786- - CMP Order Info: [id number] - LIPID Order Info: [id number] - T4F Performed By: #### L 506.1000, L506.0400, L501.9985, L100.0100, L500.4050, L500.4100 #### [facility] [address] [place], [address] Potassium [Moles/Vol] 4.0 mmol/L Normal 3.5-5.1 [facility] Comment on above: Order Comment: Order Date: 08/30/24 Order Info: 07-1 - CMP Order Info: [id number] - LIPID Order Info: 7 - T4F Performed By: #### L 506.1000, L506.0400, L501.9985, L100.0100, L500.4050, L500.4100 #### [facility] [address] [place], [address] Sodium [Moles/Vol] 136 mmol/L Normal 136-145 [facility] Comment on above: Order Comment: Order Date: 08/30/24 Order Info: 785-09 - CMP Order Info: - LIPID Order Info: 3024-03 - T4F Performed By: #### L 506.1000, L506.0400, L501.9985, L100.0100, L500.4050, L500.4100 #### [facility] [address] [place], [place], [id number] T PROT 7.6 g/dL Normal 6.4-8.2 [facility] Comment on above: Order Comment: Order Date: 08/30/24 Order Info: 785-09 - CMP Order Info: [id number] - LIPID Order Info: 3024-03 - T4F Performed By: #### L 506.1000, L506.0400, L501.9985, L100.0100, L500.4050, L500.4100 #### [facility] [address] [place], [address] Urea nitrogen [Mass/Vol] 21 mg/dL High 7-18 [facility] Comment on above: Order Comment: Order Date: 08/30/24 Order Info: 071 - CMP Order Info: [id number] - LIPID Order Info: 7 - T4F Performed By: #### L 506.1000, L506.0400, L501.9985, L100.0100, L500.4050, L500.4100 #### [facility] [address] [place], [address] Direct serum free thyroxine (FT4) measurementOrdered By: Alexsander Casanova on 08-30-2024 Free T4 [Mass/Vol] 0.97 ng/dL 0.76-1.46 [facility] Eosinophil percentageOrdered By: Alexsander Casanova on 08-30-2024 Eosinophils/100 WBC (Bld) 1.0 % 0-5 [facility] Epithelial cells.squamous LM Ql (Urine sed)Ordered By: Alexsander Casanova on 08-30-2024 Epithelial cells.squamous LM.HPF (Urine sed) [#/Area] 0 /[HPF] 0-5 [facility] Erythrocyte distribution wid th (RBC) [Ratio]Ordered By: Alexsander Casanova on 08-30-2024 Erythrocyte distribution width (RBC) [Entitic vol] 42.3 fL 35.1-43.9 [facility] Erythrocyte distribution wid th ratioOrdered By: Alexsander Casanova on 08-30-2024 Erythrocyte distribution width (RBC) [Ratio] 12.0 % 11.6-14.6 [facility] Estimated glomerular filtrat ion rate (GFR) AmericanOrdered By: Alexsander Casanova on 08-30-2024 Estimated GFR (MDRD) Amer 76 mL/min >60 [facility] Comment on above: GFR Calc Glomerular filtration rate ( GFR) estimationOrdered By: Alexsander Casanova on 08-30-2024 Estimated GFR (MDRD) Non-Af Amer 63 mL/min >60 [facility] Comment on above: Non- GFR Calc Glucose Ql (U)Ordered By: Silvana Casanova on 08-30-2024 Urine Glucose (UA) Normal mg/dl Normal [facility] Glucose measurementOrdered B y: Alexsander Casanova on 08-30-2024 Glucose [Mass/Vol] 82 mg/dL 74-106 [facility] Hematocrit Auto (Bld) [Volum e fraction]Ordered By: Alexsander Casanova on 08-30-2024 Hematocrit (Bld) [Volume fraction] 45.5 % 40-54 [facility] Hemoglobin A1c percentageOrd ered By: Alexsander Casanova on 08-30-2024 HbA1c (Bld) [Mass fraction] 5.8 % High 3.8-5.6 [facility] Comment on above: Normal < 5.7 % Predi abetic 5.7 - 6.4 % Diabetic >or= 6.5 % Please note range changes. Hemoglobin measurementOrdere d By: Alexsander Casanova on 08-30-2024 Hemoglobin (Bld) [Mass/Vol] 15.4 g/dL 13.0-16.5 [facility] High density lipoprotein (HD L) measurementOrdered By: Alexsander Casanova on 08-30-2024 Cholesterol in HDL [Mass/Vol] 48 mg/dL >40 [facility] Comment on above: The drugs N-Acetylcy steine and Metamizole may falsely depress this assay. Reference Range HDL <40 mg/dL Low HDL Cholesterol HDL >or= 60 mg/dL High HDL Cholesterol Immature granulocytes/100 WB C Auto (Bld)Ordered By: Alexsander Casanova on 08-30-2024 Immature granulocytes/100 WBC (Bld) 0.700 % 0.0-0.9 [facility] Comment on above: IG% - Immature Granu locytes (promyelocytes, myelocytes and metamyelocytes) > 1% indicates that a LEFT SHIFT is Present. Ketones Test strip Ql (U)Ord ered By: Alexsander Casanova on 08-30-2024 Ketones Ql (U) Negative Negative [facility] - Chemistry and C hemistry - challengeOrdered By: Alexsander Casanova on 08-30-2024 AST [Catalytic activity/Vol] 19 U/L 15-37 [facility] Lipid Profileon 08-30-2024 Cholesterol [Mass/Vol] 131 mg/dL Normal 200 [facility] Comment on above: Order Comment: Order Date: 08/30/24 Order Info: 0786-1 - CMP Order Info: [id number] - LIPID Order Info: 3024-7 - T4F Result Comment: <200 mg/dL Desirable 200-240 mg/dL Borderline >240 mg/dL High Risk Performed By: #### L 506.1000, L506.0400, L501.9985, L100.0100, L500.4050, L500.4100 #### [facility] [address] [place], [address] Cholesterol in HDL [Mass/Vol] 48 mg/dL Normal [facility] Comment on above: Order Comment: Order Date: 08/30/24 Order Info: 0786-1 - CMP Order Info: [id number] - LIPID Order Info: 3027 - T4F Result Comment: The drugs N-Acetylcysteine and Metamizole may falsely depress this assay. Reference Range HDL <40 mg/dL Low HDL Cholesterol HDL >or= 60 mg/dL High HDL Cholesterol Performed By: #### L 506.1000, L506.0400, L501.9985, L100.0100, L500.4050, L500.4100 #### [facility] [address] [place], [address] Cholesterol in LDL [Mass/Vol] 55 mg/dL Normal 0-130 [facility] Comment on above: Order Comment: Order Date: 08/30/24 Order Info: 07- - CMP Order Info: [id number] - LIPID Order Info: 3027 - T4F Performed By: #### L 506.1000, L506.0400, L501.9985, L100.0100, L500.4050, L500.4100 #### [facility] [address] [place], [address] Cholesterol in VLDL [Mass/Vol] 28 mg/dL Normal 5-40 [facility] Comment on above: Order Comment: Order Date: 08/30/24 Order Info: 0786 - CMP Order Info: [id number] - LIPID Order Info: [id number] - T4F Performed By: #### L 506.1000, L506.0400, L501.9985, L100.0100, L500.4050, L500.4100 #### [facility] [address] [place], [address] Triglyceride [Mass/Vol] 142 mg/dL Normal [facility] Comment on above: Order Comment: Order Date: 08/30/24 Order Info: 0786-1 - CMP Order Info: [id number] - LIPID Order Info: 3024-7 - T4F Result Comment: The drugs N-Acetylcysteine and Metamizole may falsely depress this assay. Serum Triglycerides Reference Interval Normal <150 mg/dL Borderline high 150 - 199 mg/dL High 200 - 499 mg/dL Very High > or = 500 mg/dL Performed By: #### L 506.1000, L506.0400, L501.9985, L100.0100, L500.4050, L500.4100 #### [facility] [place], [address] Low density lipoprotein (LDL ) cholesterol measurementOrdered By: Alexsander Casanova on 08-30-2024 Cholesterol in LDL [Mass/Vol] 55 mg/dL 0-130 [facility] Lymphocytes Auto (Unsp spec) [#/Vol]Ordered By: Alexsander Casanova on 08-30-2024 Lymphocytes (Bld) [#/Vol] 1.75 10*3/uL 0.83-4.51 [facility] Lymphocytes/100 WBC Auto (Un sp spec)Ordered By: Alexsander Casanova on 08-30-2024 Lymphocytes/100 WBC (Bld) 21.1 % 19-41 [facility] MCV (mean corpuscular volume ) determinationOrdered By: Alexsander Casanova on 08-30-2024 MCV (RBC) [Entitic vol] 95.8 fL High 80-94 [facility] Mean corpuscular hemoglobin (MCH) determinationOrdered By: Alexsander Casanova on 08-30-2024 MCH (RBC) [Entitic mass] 32.4 pg High 27.0-32.0 [facility] Mean corpuscular hemoglobin concentration (MCHC) determinationOrdered By: Alexsander Casanova on 08-30-2024 MCHC (RBC) [Mass/Vol] 33.8 g/dL 32-36 [facility] Mean platelet volume determi nationOrdered By: Alexsander Casanova on 08-30-2024 Platelet mean volume (Bld) [Entitic vol] 11.6 fL 6.2-12.0 [facility] Microscopic analysis of urin e for red blood cells (RBC)Ordered By: Alexsander Casanova on 08-30-2024 Urine RBC 0 SEEN /hpf 0-5 [facility] Monocyte percentageOrdered B y: Alexsander Casanova on 08-30-2024 Monocytes/100 WBC (Bld) 10.7 % High 0-10 [facility] Mucus LM Ql (Urine sed)Order ed By: Alexsander Casanova on 08-30-2024 Mucus Ql (Urine sed) 0 SEEN /hpf [facility] Neutrophil percentageOrdered By: Alexsander Casanova on 08-30-2024 Neutrophils/100 WBC (Bld) 66.0 % 47-70 [facility] Nitrite Test strip Ql (U)Ord ered By: Alexsander Casanova on 08-30-2024 Nitrite Ql (U) Negative Negative [facility] Nucleated red blood cell per centageOrdered By: Alexsander Casanova on 08-30-2024 Nucleated RBC/100 WBC (Bld) [Ratio] 0 % 0-5 [facility] Platelet countOrdered By: Silvana Casanova on 08-30-2024 Platelets (Bld) [#/Vol] 215 10*3/uL 150-450 [facility] Potassium measurementOrdered By: Alexsander Casanova on 08-30-2024 Potassium [Moles/Vol] 4.0 mmol/L 3.5-5.1 [facility] Protein Test strip Ql (U)Ord ered By: Alexsander Casanova on 08-30-2024 Protein Ql (U) Negative Negative [facility] RBC Auto (Bld) [#/Vol]Ordere d By: Alexsander Casanova on 08-30-2024 RBC (Bld) [#/Vol] 4.75 10*6/uL 4.6-6.2 [facility] Serum anion gap measurementO rdered By: Alexsander Casanova on 08-30-2024 Anion gap [Moles/Vol] 6 mmol/L 5-15 [facility] Serum globulin measurementOr dered By: Alexsander Casanova on 08-30-2024 Globulin (S) [Mass/Vol] 3.3 g/dL 2.2-4.2 [facility] Serum or plasma alanine ramos otransferase (ALT) measurementOrdered By: Alexsander Casanova on 08-30-2024 ALT [Catalytic activity/Vol] 30 U/L 16-61 [facility] Serum or plasma albumin butch urement (mass/volume)Ordered By: Alexsander Casanova on 08-30-2024 Albumin [Mass/Vol] 4.3 g/dL 3.2-5.0 [facility] Serum or plasma alkaline milan sphatase measurementOrdered By: Alexsander Casanova on 08-30-2024 ALP [Catalytic activity/Vol] 66 U/L 45-117 [facility] Serum or plasma calcium butch urement (mass/volume)Ordered By: Alexsander Casanova on 08-30-2024 Calcium [Mass/Vol] 9.4 mg/dL 8.5-10.1 [facility] Serum or plasma cholesterol measurement (mass/volume)Ordered By: Alexsander Casanova on 08-30-2024 Cholesterol [Mass/Vol] 131 mg/dL <200 [facility] Comment on above: <200 mg/dL Desirable 200-240 mg/dL Borderline >240 mg/dL High Risk Serum or plasma creatinine m easurement (mass/volume)Ordered By: Alexsander Casanova on 08-30-2024 Creatinine [Mass/Vol] 1.22 mg/dL 0.70-1.30 [facility] Comment on above: The validity of the calculated GFR & GFRAA in patients over 70 years has not been determined. Clinical correlation is essential. Serum or plasma urea nitroge n measurement (mass/volume)Ordered By: Alexsander Casanova on 08-30-2024 Urea nitrogen [Mass/Vol] 21 mg/dL High 7-18 [facility] Sodium levelOrdered By: Alexsander Casanova on 08-30-2024 Sodium [Moles/Vol] 136 mmol/L 136-145 [facility] T4 Free Directon 08-30-2024 T4 FREE DIRECT 0.97 ng/dL Normal 0.76-1.46 [facility] Comment on above: Order Comment: Order Date: 08/30/24 Order Info: 0786-1 - CMP Order Info: [id number] - LIPID Order Info: 3024-7 - T4F Performed By: #### L 506.1000, L506.0400, L501.9985, L100.0100, L500.4050, L500.4100 #### [facility] [place], [address] Total proteinOrdered By: Eirc Casanova on 08-30-2024 Protein [Mass/Vol] 7.6 g/dL 6.4-8.2 [facility] Triglycerides measurementOrd ered By: Alexsander Casanova on 08-30-2024 Triglyceride [Mass/Vol] 142 mg/dL <199 [facility] Comment on above: The drugs N-Acetylcy steine and Metamizole may falsely depress this assay.Serum Triglycerides Reference Interval Normal <150 mg/dL Borderline high 150 - 199 mg/dL High 200 - 499 mg/dL Very High > or = 500 mg/dL Urinalysis, Completeon 08-30 BACTERIA 0 SEEN Normal None Seen [facility] Comment on above: Order Comment: Urine , Random Performed By: #### L 400.0001 #### [facility] [address] [place], [address] EPI,SQUAMOUS 0 SEEN Normal [address] [place] [address] Comment on above: Order Comment: Urine , Random Performed By: #### L 400.0001 #### [facility] [address] [place], [address] Mucus Ql (Urine sed) 0 SEEN Normal [facility] Comment on above: Order Comment: Urine , Random Performed By: #### L 400.0001 #### [facility] [address] [place], [address] RBC 0 SEEN Normal 0-5 [facility] Comment on above: Order Comment: Urine , Random Performed By: #### L 400.0001 #### [facility] [address] [place], [address] WBC 0 SEEN Normal 0-5 [facility] Comment on above: Order Comment: Urine , Random Performed By: #### L 400.0001 #### [facility] [address] [place], [address] Urine blood detectionOrdered By: Alexsander Casanova on 08-30-2024 Urine Occult Blood Negative Negative [facility] Urine clarityOrdered By: Eric Casanova on 08-30-2024 Clarity (U) Clear Clear [facility] Urine color determinationOrd ered By: Alexsander Casanova on 08-30-2024 Color (U) Yellow Yellow [facility] Urine leukocyte esterase det ection by dipstickOrdered By: Alexsander Casanova on 08-30-2024 Leukocyte esterase Test strip Ql (U) Negative Negative [facility] Urine pHOrdered By: Alexsander appiah on 08-30-2024 pH (U) 6.0 [pH] 5.0 - 8.0 [facility] Urine sediment bacteria coun t by microscopy (number/high power field)Ordered By: Alexsander Casanova on 08-30-2024 Bacteria LM.HPF (Urine sed) [#/Area] 0 /[HPF] None Seen [facility] Urine specific gravity measu rementOrdered By: Alexsander Casanova on 08-30-2024 Specific gravity (U) [Rel density] 1.005 1.002-1.030 [facility] Urobilinogen Ql (U)Ordered B y: Alexsander Caasnova on 08-30-2024 Urine Urobilinogen Normal mg/dl Normal [facility] Very low density lipoprotein (VLDL) cholesterol measurementOrdered By: Alexsander Casanova on 08-30-2024 VLDL Cholesterol 28 mg/dL 5-40 [facility] White blood cell (WBC) count Ordered By: Alexsander Casanova on 08-30-2024 WBC (Bld) [#/Vol] 8.3 10*3/uL 4.4-11.0 [facility] White blood cell countOrdere d By: Alexsander Casanova on 08-30-2024 Urine WBC 0 SEEN /hpf 0-5 [facility] Absolute lymphocyte countOrd ered By: Alexsander Casanova on 10-18-2023 Lymphocytes Auto (Unsp spec) [#/Vol] 1.78 10*3/uL 0.83-4.51 [facility] Automated lymphocyte count a s percentage of total leukocytesOrdered By: Alexsander Casanova on 10-18-2023 Lymphocytes/100 WBC Auto (Unsp spec) 23.2 % 19-41 [facility] Basophil percentageOrdered B y: Alexsander Casanova on 10-18-2023 Basophil percentage 0 SEEN /hpf 0-5 [facility] Basophils/100 WBC (Bld) 0.8 % 0-1 [facility] Bilirubin [Mass/Vol] 0.60 mg/dL 0.20-1.00 [facility] Comment on above: For patients on eltr ombopag therapy, use of Dimension [place] TBIL is not recommended. Chloride [Moles/Vol] 105 mmol/L 98-107 [facility] Cholesterol [Mass/Vol] 94 mg/dL <200 [facility] Comment on above: <200 mg/dL Desirable 200-240 mg/dL Borderline >240 mg/dL High Risk Eosinophils/100 WBC (Bld) 5.0 % 0-5 [facility] Glucose [Mass/Vol] 101 mg/dL 74-106 [facility] Comment on above: Fasting Glucose resu lt from 100 to 125 mg/dL suggests IMPAIRED HOMEOSTASIS per A.D.A. criteria. Hemoglobin (Bld) [Mass/Vol] 14.0 g/dL 13.0-16.5 [facility] Monocytes/100 WBC (Bld) 11.5 % 0-10 [facility] Neutrophils (Bld) [#/Vol] 4.5 10*3/uL 2.0-7.7 [facility] Neutrophils/100 WBC (Bld) 59.2 % 47-70 [facility] Potassium [Moles/Vol] 4.1 mmol/L 3.5-5.1 [facility] Protein [Mass/Vol] 7.0 g/dL 6.4-8.2 [facility] Sodium [Moles/Vol] 137 mmol/L 136-145 [facility] Triglyceride [Mass/Vol] 75 mg/dL <199 [facility] Comment on above: The drugs N-Acetylcy steine and Metamizole may falsely depress this assay.Serum Triglycerides Reference Interval Normal <150 mg/dL Borderline high 150 - 199 mg/dL High 200 - 499 mg/dL Very High > or = 500 mg/dL WBC (Bld) [#/Vol] 7.7 10*3/uL 4.4-11.0 [facility] Bilirubin Test strip Ql (U)O rdered By: Alexsander Casanova on 10-18-2023 Bilirubin Ql (U) Negative Negative [facility] Determination of erythrocyte mean corpuscular volume (MCV)Ordered By: Alexsander Casanova on 10-18-2023 MCV (RBC) [Entitic vol] 95.9 fL 80-94 [facility] Erythrocyte distribution wid th ratioOrdered By: Alexsander Casanova on 10-18-2023 Erythrocyte distribution width (RBC) [Ratio] 11.9 % 11.6-14.6 [facility] Erythrocyte distribution wid th standard deviationOrdered By: Alexsander Casanova on 10-18-2023 Erythrocyte distribution width (RBC) [Entitic vol] 41.8 fL 35.1-43.9 [facility] Hematocrit Auto (Bld) [Volum e fraction]Ordered By: Alexsander Casanova on 10-18-2023 Hematocrit (Bld) [Volume fraction] 42.1 % 40-54 [facility] High density lipoprotein (HD L) measurementOrdered By: Alexsander Casanova on 10-18-2023 Cholesterol in HDL (Body fld) [Mass/Vol] 46 mg/dL >40 [facility] Comment on above: The drugs N-Acetylcy steine and Metamizole may falsely depress this assay. Reference Range HDL <40 mg/dL Low HDL Cholesterol HDL >or= 60 mg/dL High HDL Cholesterol Immature granulocytes/100 WB C Auto (Bld)Ordered By: Alexsander Casanova on 10-18-2023 Immature granulocytes/100 WBC (Bld) 0.300 % 0.0-0.9 [facility] Comment on above: IG% - Immature Granu locytes (promyelocytes, myelocytes and metamyelocytes) > 1% indicates that a LEFT SHIFT is Present. Ketones Test strip Ql (U)Ord ered By: Alexsander Casanova on 10-18-2023 Ketones Ql (U) Negative Negative [facility] Laboratory - Chemistry and C hemistry - challengeOrdered By: Alexsander Casanova on 10-18-2023 Albumin/Globulin [Mass ratio] 1.3 {ratio} 0.9-2.4 [facility] ALP [Catalytic activity/Vol] 82 U/L 45-117 [facility] ALT [Catalytic activity/Vol] 33 U/L 16-61 [facility] CO2 [Moles/Vol] 26.0 mmol/L 21.0-32.0 [facility] Globulin (S) [Mass/Vol] 3.1 g/dL 2.2-4.2 [facility] Magnesium [Mass/Vol] 2.4 mg/dL 1.6-2.6 [facility] Urea nitrogen/Creatinine [Mass ratio] 9.4 mg/mg 10-20 [facility] Laboratory - Hematology and Cell countsOrdered By: Alexsander Casanova on 10-18-2023 MCH (RBC) [Entitic mass] 31.9 pg 27.0-32.0 [facility] MCHC (RBC) [Mass/Vol] 33.3 g/dL 32-36 [facility] Nucleated RBC/100 WBC (Bld) [Ratio] 0 % 0-5 [facility] Platelets (Bld) [#/Vol] 209 10*3/uL 150-450 [facility] Low density lipoprotein (LDL ) cholesterol measurementOrdered By: Alexsander Casanova on 10-18-2023 Cholesterol in LDL (Body fld) [Moles/Vol] 33 mg/dL 0-130 [facility] Mucus LM Ql (Urine sed)Order ed By: Alexsander Casanova on 10-18-2023 Mucus Ql (Urine sed) 0 SEEN /hpf [facility] Nitrite Test strip Ql (U)Ord ered By: Alexsander Casanova on 10-18-2023 Nitrite Ql (U) Negative Negative [facility] No Panel InformationOrdered By: Alexsander Casanova on 10-18-2023 Urine RBC 0 SEEN /hpf 0-5 [facility] Estimated GFR (MDRD) Amer 90 mL/min >60 [facility] Comment on above: GFR Calc Estimated GFR (MDRD) Non-Af Amer 74 mL/min >60 [facility] Comment on above: Non- GFR Calc Vitamin D 25-Hydroxy 61.1 ng/mL [facility] Comment on above: Vitamin D 25(OH) Sta tus Range Deficiency <20 ng/mL (50nmol/L) Insufficiency 20 - 30 ng/mL (50 - 75 nmol/L) Sufficiency 30 - 100 ng/mL (75 - 250 nmol/L) Toxicity >100 ng/mL (>250 nmol/L) Platelet mean volume Malick-Ec ker (Bld) [Entitic vol]Ordered By: Alexsander Casanova on 10-18-2023 Platelet mean volume (Bld) [Entitic vol] 11.8 fL 6.2-12.0 [facility] Protein Test strip Ql (U)Ord ered By: Alexsander Casanova on 10-18-2023 Protein Ql (U) Negative Negative [facility] RBC Auto (Bld) [#/Vol]Ordere d By: Alexsander Casanova on 10-18-2023 RBC (Bld) [#/Vol] 4.39 10*6/uL 4.6-6.2 [facility] Serum or plasma calcium butch urement (mass/volume)Ordered By: Alexsander Casanova on 10-18-2023 Calcium [Mass/Vol] 9.4 mg/dL 8.5-10.1 [facility] Serum or plasma creatinine m easurement (mass/volume)Ordered By: Alexsander Casanova on 10-18-2023 Creatinine [Mass/Vol] 1.06 mg/dL 0.70-1.30 [facility] Comment on above: The validity of the calculated GFR & GFRAA in patients over 70 years has not been determined. Clinical correlation is essential. Serum or plasma thyroid stim ulating hormone (TSH) measurement (units/volume)Ordered By: Alexsander Casanova on 10-18-2023 TSH Qn 2.14 uIU/mL 0.358-3.74 [facility] Serum or plasma urea nitroge n measurement (mass/volume)Ordered By: Alexsander Casanova on 10-18-2023 Urea nitrogen [Mass/Vol] 10 mg/dL 7-18 [facility] Squamous epithelial cells de tection in urine sediment by light microscopyOrdered By: Alexsander Casanova on 10-18-2023 Epithelial cells.squamous LM Ql (Urine sed) 0 SEEN /hpf 0-5 [facility] Thin prep Papanicolaou smear with manual screeningOrdered By: Alexsander Casanova on 10-18-2023 Thin prep Papanicolaou smear with manual screening 3.9 g/dL 3.2-5.0 [facility] Thin prep Papanicolaou smear with manual screening 25 U/L 15-37 [facility] Thin prep Papanicolaou smear with manual screening 6 5-15 [facility] Thin prep Papanicolaou smear with manual screening 1.04 ng/dL 0.76-1.46 [facility] Urine blood detectionOrdered By: Alexsander Casanova on 10-18-2023 RBC Ql (U) Negative Negative [facility] Urine clarityOrdered By: Eric Casanova on 10-18-2023 Clarity (U) Clear Clear [facility] Urine color determinationOrd ered By: Alexsander Casanova on 10-18-2023 Color (U) Yellow Yellow [facility] Urine glucose detectionOrder ed By: Alexsander Casanova on 10-18-2023 Glucose Ql (U) Normal mg/dl Normal [facility] Urine leukocyte esterase det ection by dipstickOrdered By: Alexsander Casanova on 10-18-2023 Leukocyte esterase Test strip Ql (U) Negative Negative [facility] Urine pHOrdered By: Alexsander appiah on 10-18-2023 pH (U) 7.0 [pH] 5.0 - 8.0 [facility] Urine sediment bacteria coun t by microscopy (number/high power field)Ordered By: Alexsander Casanova on 10-18-2023 Bacteria LM.HPF (Urine sed) [#/Area] 0 /[HPF] None Seen [facility] Urine specific gravity measu rementOrdered By: Alexsander Casanova on 10-18-2023 Specific gravity (U) [Rel density] 1.005 1.002-1.030 [facility] Urine urobilinogen measureme ntOrdered By: Alexsander Casanova on 10-18-2023 Urobilinogen Ql (U) Normal mg/dl Normal [facility] Very low density lipoprotein (VLDL) cholesterol measurementOrdered By: Alexsander Casanova on 10-18-2023 Cholesterol in VLDL Calc [Moles/Vol] 15 mg/dL 5-40 [facility] Whole blood hemoglobin A1c/t otal hemoglobin ratio (mass fraction)Ordered By: Alexsander Casanova on 10-18-2023 HbA1c (Bld) [Mass fraction] 5.6 % 3.8-5.6 [facility] Comment on above: Normal < 5.7 % Predi abetic 5.7 - 6.4 % Diabetic >or= 6.5 % Please note range changes. Absolute lymphocyte countOrd ered By: Alexsander Casanova on 06-22-2023 Lymphocytes Auto (Unsp spec) [#/Vol] 1.83 10*3/uL 0.83-4.51 [facility] Basophil percentageOrdered B y: Alexsander Casanova on 06-22-2023 Basophil percentage 0 SEEN /hpf 0-5 [facility] Basophils/100 WBC (Bld) 0.5 % 0-1 [facility] Bilirubin [Mass/Vol] 0.40 mg/dL 0.20-1.00 [facility] Comment on above: For patients on eltr ombopag therapy, use of Dimension [place] TBIL is not recommended. Chloride [Moles/Vol] 107 mmol/L 98-107 [facility] Cholesterol [Mass/Vol] 92 mg/dL <200 [facility] Comment on above: <200 mg/dL Desirable 200-240 mg/dL Borderline >240 mg/dL High Risk Eosinophils/100 WBC (Bld) 1.9 % 0-5 [facility] Glucose [Mass/Vol] 114 mg/dL 74-106 [facility] Comment on above: Fasting Glucose resu lt from 100 to 125 mg/dL suggests IMPAIRED HOMEOSTASIS per A.D.A. criteria. Neutrophils (Bld) [#/Vol] 5.1 10*3/uL 2.0-7.7 [facility] Neutrophils/100 WBC (Bld) 63.8 % 47-70 [facility] Potassium [Moles/Vol] 3.9 mmol/L 3.5-5.1 [facility] Protein [Mass/Vol] 7.2 g/dL 6.4-8.2 [facility] Sodium [Moles/Vol] 138 mmol/L 136-145 [facility] Triglyceride [Mass/Vol] 101 mg/dL <199 [facility] Comment on above: The drugs N-Acetylcy steine and Metamizole may falsely depress this assay.Serum Triglycerides Reference Interval Normal <150 mg/dL Borderline high 150 - 199 mg/dL High 200 - 499 mg/dL Very High > or = 500 mg/dL WBC (Bld) [#/Vol] 8.0 10*3/uL 4.4-11.0 [facility] Bilirubin Test strip Ql (U)O rdered By: Alexsander Casanova on 06-22-2023 Bilirubin Ql (U) Negative Negative [facility] Blood erythrocytes count (nu mber/volume)Ordered By: Alexsander Casanova on 06-22-2023 RBC (Bld) [#/Vol] 4.53 10*6/uL 4.6-6.2 [facility] Blood hemoglobin measurement (mass/volume)Ordered By: Alexsander Casanova on 06-22-2023 Hemoglobin (Bld) [Mass/Vol] 14.6 g/dL 13.0-16.5 [facility] Blood lymphocytes/100 leukoc ytesOrdered By: Alexsander Casanova on 06-22-2023 Lymphocytes/100 WBC (Bld) 22.9 % 19-41 [facility] Blood monocytes/100 leukocyt esOrdered By: Alexsander Casanova on 06-22-2023 Monocytes/100 WBC (Bld) 10.5 % 0-10 [facility] Blood platelet mean volumeOr dered By: Alexsander Casanova on 06-22-2023 Platelet mean volume (Bld) [Entitic vol] 11.3 fL 6.2-12.0 [facility] Determination of erythrocyte mean corpuscular volume (MCV)Ordered By: Alexsander Casanova on 06-22-2023 MCV (RBC) [Entitic vol] 97.1 fL 80-94 [facility] Hematocrit Auto (Bld) [Volum e fraction]Ordered By: Alexsander Casanova on 06-22-2023 Hematocrit (Bld) [Volume fraction] 44.0 % 40-54 [facility] Ketones Test strip Ql (U)Ord ered By: Alexsander Casanova on 06-22-2023 Ketones Ql (U) Negative Negative [facility] Laboratory - Chemistry and C hemistry - challengeOrdered By: Alexsander Casanova on 06-22-2023 ALP [Catalytic activity/Vol] 80 U/L 45-117 [facility] ALT [Catalytic activity/Vol] 33 U/L 16-61 [facility] CO2 [Moles/Vol] 27.0 mmol/L 21.0-32.0 [facility] Free T4 [Mass/Vol] 0.92 ng/dL 0.76-1.46 [facility] Globulin (S) [Mass/Vol] 3.3 g/dL 2.2-4.2 [facility] Urea nitrogen/Creatinine [Mass ratio] 8.9 mg/mg 10-20 [facility] Laboratory - Hematology and Cell countsOrdered By: Alexsander Casanova on 06-22-2023 Erythrocyte distribution width (RBC) [Entitic vol] 43.3 fL 35.1-43.9 [facility] Erythrocyte distribution width (RBC) [Ratio] 12.0 % 11.6-14.6 [facility] Immature granulocytes/100 WBC (Bld) 0.400 % 0.0-0.9 [facility] Comment on above: IG% - Immature Granu locytes (promyelocytes, myelocytes and metamyelocytes) > 1% indicates that a LEFT SHIFT is Present. MCH (RBC) [Entitic mass] 32.2 pg 27.0-32.0 [facility] Nucleated RBC/100 WBC (Bld) [Ratio] 0 % 0-5 [facility] MCHC Auto (RBC) [Mass/Vol]Or dered By: Alexsander Casanova on 06-22-2023 MCHC (RBC) [Mass/Vol] 33.2 g/dL 32-36 [facility] Mucus LM Ql (Urine sed)Order ed By: Alexsander Casanova on 06-22-2023 Mucus Ql (Urine sed) 0 SEEN /hpf [facility] Nitrite Test strip Ql (U)Ord ered By: Alexsander Casanova on 06-22-2023 Nitrite Ql (U) Negative Negative [facility] No Panel InformationOrdered By: Alexsander Casanova on 06-22-2023 Estimated GFR (MDRD) Amer 95 mL/min >60 [facility] Comment on above: GFR Calc Estimated GFR (MDRD) Non-Af Amer 78 mL/min >60 [facility] Comment on above: Non- GFR Calc Thyroid Stimulating Hormone (TSH) 2.33 uIU/mL 0.358-3.74 [facility] Vitamin D 25-Hydroxy 62.5 ng/mL [facility] Comment on above: Vitamin D 25(OH) Sta tus Range Deficiency <20 ng/mL (50nmol/L) Insufficiency 20 - 30 ng/mL (50 - 75 nmol/L) Sufficiency 30 - 100 ng/mL (75 - 250 nmol/L) Toxicity >100 ng/mL (>250 nmol/L) Platelets bldOrdered By: Eric Casanova on 06-22-2023 Platelets (Bld) [#/Vol] 224 10*3/uL 150-450 [facility] Protein Test strip Ql (U)Ord ered By: Alexsander Casanova on 06-22-2023 Protein Ql (U) Negative Negative [facility] Serum or plasma albumin butch urement (mass/volume)Ordered By: Alexsander Casanova on 06-22-2023 Albumin [Mass/Vol] 3.9 g/dL 3.2-5.0 [facility] Serum or plasma albumin/glob ulin mass ratioOrdered By: Alexsander Casanova on 06-22-2023 Albumin/Globulin [Mass ratio] 1.2 {ratio} 0.9-2.4 [facility] Serum or plasma calcium butch urement (mass/volume)Ordered By: Alexsander Casanova on 06-22-2023 Calcium [Mass/Vol] 9.0 mg/dL 8.5-10.1 [facility] Serum or plasma cholesterol in HDL measurement (mass/volume)Ordered By: Alexsander Casanova on 06-22-2023 Cholesterol in HDL [Mass/Vol] 49 mg/dL >40 [facility] Comment on above: The drugs N-Acetylcy steine and Metamizole may falsely depress this assay. Reference Range HDL <40 mg/dL Low HDL Cholesterol HDL >or= 60 mg/dL High HDL Cholesterol Serum or plasma cholesterol in VLDL measurement (mass/volume)Ordered By: Alexsander Casanova on 06-22-2023 Cholesterol in VLDL [Mass/Vol] 20 mg/dL 5-40 [facility] Serum or plasma creatinine m easurement (mass/volume)Ordered By: Alexsander Casanova on 06-22-2023 Creatinine [Mass/Vol] 1.01 mg/dL 0.70-1.30 [facility] Comment on above: The validity of the calculated GFR & GFRAA in patients over 70 years has not been determined. Clinical correlation is essential. Serum or plasma low density lipoprotein (LDL) cholesterol measurement (mass/volume)Ordered By: Alexsander Casanova on 06-22-2023 Cholesterol in LDL [Mass/Vol] 23 mg/dL 0-130 [facility] Serum or plasma urea nitroge n measurement (mass/volume)Ordered By: Alexsander Casanova on 06-22-2023 Urea nitrogen [Mass/Vol] 9 mg/dL 7-18 [facility] Squamous epithelial cells de tection in urine sediment by light microscopyOrdered By: Alexsander Casanova on 06-22-2023 Epithelial cells.squamous LM Ql (Urine sed) 0 SEEN /hpf 0-5 [facility] Thin prep Papanicolaou smear with manual screeningOrdered By: Alexsander Casanova on 06-22-2023 Thin prep Papanicolaou smear with manual screening 21 U/L 15-37 [facility] Thin prep Papanicolaou smear with manual screening 4 5-15 [facility] Urine blood detectionOrdered By: Alexsander Casanova on 06-22-2023 RBC Ql (U) Negative Negative [facility] RBC Ql (U) 0 SEEN /hpf 0-5 [facility] Urine clarityOrdered By: Eric Casanova on 06-22-2023 Clarity (U) Clear Clear [facility] Urine color determinationOrd ered By: Alexsander Casanova on 06-22-2023 Color (U) Yellow Yellow [facility] Urine glucose detectionOrder ed By: Alexsander Casanova on 06-22-2023 Glucose Ql (U) Normal mg/dl Normal [facility] Urine leukocyte esterase det ection by dipstickOrdered By: Alexsander Casaonva on 06-22-2023 Leukocyte esterase Test strip Ql (U) Negative Negative [facility] Urine pHOrdered By: Alexsander appiah on 06-22-2023 pH (U) 7.0 [pH] 5.0 - 8.0 [facility] Urine sediment bacteria coun t by microscopy (number/high power field)Ordered By: Alexsander Casanova on 06-22-2023 Bacteria LM.HPF (Urine sed) [#/Area] 0 /[HPF] None Seen [facility] Urine specific gravity measu rementOrdered By: Alexsander Casanova on 06-22-2023 Specific gravity (U) [Rel density] 1.010 1.002-1.030 [facility] Urobilinogen Auto test strip Ql (U)Ordered By: Alexsander Casanova on 06-22-2023 Urobilinogen Ql (U) Normal mg/dl Normal [facility] Whole blood hemoglobin A1c/t otal hemoglobin ratio (mass fraction)Ordered By: Alexsander Casanova on 06-22-2023 HbA1c (Bld) [Mass fraction] 6.0 % 3.8-5.6 [facility] Comment on above: Normal < 5.7 % Predi abetic 5.7 - 6.4 % Diabetic >or= 6.5 % Please note range changes. Absolute lymphocyte countOrd ered By: Dr. Casanova on 01-11-2023 Lymphocytes Auto (Unsp spec) [#/Vol] 2.11 10*3/uL 0.83-4.51 [facility] Basophil percentageOrdered B y: Dr. Casanova on 01-11-2023 Basophil percentage 0 SEEN /hpf 0-5 [facility] Basophils/100 WBC (Bld) 0.5 % 0-1 [facility] Bilirubin [Mass/Vol] 0.40 mg/dL 0.20-1.00 [facility] Comment on above: For patients on eltr ombopag therapy, use of Dimension [place] TBIL is not recommended. Chloride [Moles/Vol] 109 mmol/L 98-107 [facility] Cholesterol [Mass/Vol] 107 mg/dL <200 [facility] Comment on above: <200 mg/dL Desirable 200-240 mg/dL Borderline >240 mg/dL High Risk Eosinophils/100 WBC (Bld) 1.6 % 0-5 [facility] Glucose [Mass/Vol] 105 mg/dL 74-106 [facility] Comment on above: Fasting Glucose resu lt from 100 to 125 mg/dL suggests IMPAIRED HOMEOSTASIS per A.D.A. criteria. Neutrophils (Bld) [#/Vol] 6.0 10*3/uL 2.0-7.7 [facility] Neutrophils/100 WBC (Bld) 64.3 % 47-70 [facility] Potassium [Moles/Vol] 3.8 mmol/L 3.5-5.1 [facility] Protein [Mass/Vol] 7.2 g/dL 6.4-8.2 [facility] Sodium [Moles/Vol] 138 mmol/L 136-145 [facility] Triglyceride [Mass/Vol] 158 mg/dL <199 [facility] Comment on above: The drugs N-Acetylcy steine and Metamizole may falsely depress this assay.Serum Triglycerides Reference Interval Normal <150 mg/dL Borderline high 150 - 199 mg/dL High 200 - 499 mg/dL Very High > or = 500 mg/dL WBC (Bld) [#/Vol] 9.4 10*3/uL 4.4-11.0 [facility] Bilirubin Test strip Ql (U)O rdered By: Dr. Casanova on 01-11-2023 Bilirubin Ql (U) Negative Negative [facility] Blood erythrocytes count (nu mber/volume)Ordered By: Dr. Casanova on 01-11-2023 RBC (Bld) [#/Vol] 4.67 10*6/uL 4.6-6.2 [facility] Blood hemoglobin measurement (mass/volume)Ordered By: Dr. Casanova on 01-11-2023 Hemoglobin (Bld) [Mass/Vol] 15.3 g/dL 13.0-16.5 [facility] Blood lymphocytes/100 leukoc ytesOrdered By: Dr. Casanova on 01-11-2023 Lymphocytes/100 WBC (Bld) 22.6 % 19-41 [facility] Blood monocytes/100 leukocyt esOrdered By: Dr. Casanova on 01-11-2023 Monocytes/100 WBC (Bld) 10.7 % 0-10 [facility] Blood platelet mean volumeOr dered By: Dr. Casanova on 01-11-2023 Platelet mean volume (Bld) [Entitic vol] 11.8 fL 6.2-12.0 [facility] Determination of erythrocyte mean corpuscular volume (MCV)Ordered By: Dr. Casanova on 01-11-2023 MCV (RBC) [Entitic vol] 97.2 fL 80-94 [facility] Hematocrit Auto (Bld) [Volum e fraction]Ordered By: Dr. Casanova on 01-11-2023 Hematocrit (Bld) [Volume fraction] 45.4 % 40-54 [facility] Ketones Test strip Ql (U)Ord ered By: Dr. Casanova on 01-11-2023 Ketones Ql (U) Negative Negative [facility] Laboratory - Chemistry and C hemistry - challengeOrdered By: Dr. Casanova on 01-11-2023 ALP [Catalytic activity/Vol] 102 U/L 45-117 [facility] ALT [Catalytic activity/Vol] 27 U/L 16-61 [facility] CO2 [Moles/Vol] 26.0 mmol/L 21.0-32.0 [facility] Free T4 [Mass/Vol] 0.97 ng/dL 0.76-1.46 [facility] Globulin (S) [Mass/Vol] 3.4 g/dL 2.2-4.2 [facility] Urea nitrogen/Creatinine [Mass ratio] 7.0 mg/mg 10-20 [facility] Laboratory - Hematology and Cell countsOrdered By: Dr. Casanova on 01-11-2023 Erythrocyte distribution width (RBC) [Entitic vol] 43.7 fL 35.1-43.9 [facility] Erythrocyte distribution width (RBC) [Ratio] 12.2 % 11.6-14.6 [facility] Immature granulocytes/100 WBC (Bld) 0.300 % 0.0-0.9 [facility] Comment on above: IG% - Immature Granu locytes (promyelocytes, myelocytes and metamyelocytes) > 1% indicates that a LEFT SHIFT is Present. MCH (RBC) [Entitic mass] 32.8 pg 27.0-32.0 [facility] Nucleated RBC/100 WBC (Bld) [Ratio] 0 % 0-5 [facility] MCHC Auto (RBC) [Mass/Vol]Or dered By: Dr. Casanova on 01-11-2023 MCHC (RBC) [Mass/Vol] 33.7 g/dL 32-36 [facility] Mucus LM Ql (Urine sed)Order ed By: Dr. Casanova on 01-11-2023 Mucus Ql (Urine sed) 0 SEEN /hpf [facility] Nitrite Test strip Ql (U)Ord ered By: Dr. Casanova on 01-11-2023 Nitrite Ql (U) Negative Negative [facility] No Panel InformationOrdered By: Dr. Casanova on 01-11-2023 Estimated GFR (MDRD) Amer 97 mL/min >60 [facility] Comment on above: GFR Calc Estimated GFR (MDRD) Non-Af Amer 80 mL/min >60 [facility] Comment on above: Non- GFR Calc Thyroid Stimulating Hormone (TSH) 1.78 uIU/mL 0.358-3.74 [facility] Vitamin D 25-Hydroxy 79.8 ng/mL [facility] Comment on above: Vitamin D 25(OH) Sta tus Range Deficiency <20 ng/mL (50nmol/L) Insufficiency 20 - 30 ng/mL (50 - 75 nmol/L) Sufficiency 30 - 100 ng/mL (75 - 250 nmol/L) Toxicity >100 ng/mL (>250 nmol/L) Platelets bldOrdered By: Dr. Casanova on 01-11-2023 Platelets (Bld) [#/Vol] 207 10*3/uL 150-450 [facility] Protein Test strip Ql (U)Ord ered By: Dr. Casanova on 01-11-2023 Protein Ql (U) Negative Negative [facility] Serum or plasma albumin butch urement (mass/volume)Ordered By: Dr. Casanova on 01-11-2023 Albumin [Mass/Vol] 3.8 g/dL 3.2-5.0 [facility] Serum or plasma albumin/glob ulin mass ratioOrdered By: Dr. Casanova on 01-11-2023 Albumin/Globulin [Mass ratio] 1.1 {ratio} 0.9-2.4 [facility] Serum or plasma calcium butch urement (mass/volume)Ordered By: Dr. Casanova on 01-11-2023 Calcium [Mass/Vol] 9.4 mg/dL 8.5-10.1 [facility] Serum or plasma cholesterol in HDL measurement (mass/volume)Ordered By: Dr. Casanova on 01-11-2023 Cholesterol in HDL [Mass/Vol] 42 mg/dL >40 [facility] Comment on above: The drugs N-Acetylcy steine and Metamizole may falsely depress this assay. Reference Range HDL <40 mg/dL Low HDL Cholesterol HDL >or= 60 mg/dL High HDL Cholesterol Serum or plasma cholesterol in VLDL measurement (mass/volume)Ordered By: Dr. Casanova on 01-11-2023 Cholesterol in VLDL [Mass/Vol] 32 mg/dL 5-40 [facility] Serum or plasma creatinine m easurement (mass/volume)Ordered By: Dr. Casanova on 01-11-2023 Creatinine [Mass/Vol] 0.99 mg/dL 0.70-1.30 [facility] Comment on above: The validity of the calculated GFR & GFRAA in patients over 70 years has not been determined. Clinical correlation is essential. Serum or plasma low density lipoprotein (LDL) cholesterol measurement (mass/volume)Ordered By: Dr. Casanova on 01-11-2023 Cholesterol in LDL [Mass/Vol] 33 mg/dL 0-130 [facility] Serum or plasma urea nitroge n measurement (mass/volume)Ordered By: Dr. Casanova on 01-11-2023 Urea nitrogen [Mass/Vol] 7 mg/dL 7-18 [facility] Squamous epithelial cells de tection in urine sediment by light microscopyOrdered By: Dr. Casanova on 01-11-2023 Epithelial cells.squamous LM Ql (Urine sed) 0 SEEN /hpf 0-5 [facility] Thin prep Papanicolaou smear with manual screeningOrdered By: Dr. Casanova on 01-11-2023 Thin prep Papanicolaou smear with manual screening 21 U/L 15-37 [facility] Thin prep Papanicolaou smear with manual screening 3 5-15 [facility] Urine blood detectionOrdered By: Dr. Casanova on 01-11-2023 RBC Ql (U) 10 /ul Negative [facility] RBC Ql (U) 0 SEEN /hpf 0-5 [facility] Urine clarityOrdered By: Dr. Casanova on 01-11-2023 Clarity (U) Clear Clear [facility] Urine color determinationOrd ered By: Dr. Casanova on 01-11-2023 Color (U) Yellow Yellow [facility] Urine glucose detectionOrder ed By: Dr. Casanova on 01-11-2023 Glucose Ql (U) 250 mg/dl Normal [facility] Urine leukocyte esterase det ection by dipstickOrdered By: Dr. Casanova on 01-11-2023 Leukocyte esterase Test strip Ql (U) Negative Negative [facility] Urine pHOrdered By: Dr. Verna del real on 01-11-2023 pH (U) 5.0 [pH] 5.0 - 8.0 [facility] Urine sediment bacteria coun t by microscopy (number/high power field)Ordered By: Dr. Casanova on 01-11-2023 Bacteria LM.HPF (Urine sed) [#/Area] 0 /[HPF] None Seen [facility] Urine specific gravity measu rementOrdered By: Dr. Casanova on 01-11-2023 Specific gravity (U) [Rel density] 1.015 1.002-1.030 [facility] Urobilinogen Auto test strip Ql (U)Ordered By: Dr. Casanova on 01-11-2023 Urobilinogen Ql (U) Normal mg/dl Normal [facility] Whole blood hemoglobin A1c/t otal hemoglobin ratio (mass fraction)Ordered By: Dr. Casanova on 01-11-2023 HbA1c (Bld) [Mass fraction] 5.9 % 3.8-5.6 [facility] Comment on above: Normal < 5.7 % Predi abetic 5.7 - 6.4 % Diabetic >or= 6.5 % Please note range changes. Absolute lymphocyte countOrd ered By: Dr. Casanova on 10-13-2022 Lymphocytes Auto (Unsp spec) [#/Vol] 2.10 10*3/uL 0.83-4.51 [facility] Basophil percentageOrdered B y: Dr. Casanova on 10-13-2022 Basophil percentage 0 SEEN /hpf 0-5 [facility] Basophils/100 WBC (Bld) 0.4 % 0-1 [facility] Bilirubin [Mass/Vol] 0.40 mg/dL 0.20-1.00 [facility] Comment on above: For patients on eltr ombopag therapy, use of Dimension [place] TBIL is not recommended. Chloride [Moles/Vol] 104 mmol/L 98-107 [facility] Cholesterol [Mass/Vol] 121 mg/dL <200 [facility] Comment on above: <200 mg/dL Desirable 200-240 mg/dL Borderline >240 mg/dL High Risk Eosinophils/100 WBC (Bld) 1.4 % 0-5 [facility] Glucose [Mass/Vol] 88 mg/dL 74-106 [facility] Neutrophils (Bld) [#/Vol] 5.7 10*3/uL 2.0-7.7 [facility] Neutrophils/100 WBC (Bld) 61.5 % 47-70 [facility] Potassium [Moles/Vol] 4.3 mmol/L 3.5-5.1 [facility] Protein [Mass/Vol] 6.7 g/dL 6.4-8.2 [facility] Sodium [Moles/Vol] 139 mmol/L 136-145 [facility] Triglyceride [Mass/Vol] 89 mg/dL <199 [facility] Comment on above: The drugs N-Acetylcy steine and Metamizole may falsely depress this assay.Serum Triglycerides Reference Interval Normal <150 mg/dL Borderline high 150 - 199 mg/dL High 200 - 499 mg/dL Very High > or = 500 mg/dL WBC (Bld) [#/Vol] 9.3 10*3/uL 4.4-11.0 [facility] Bilirubin Test strip Ql (U)O rdered By: Dr. Casanova on 10-13-2022 Bilirubin Ql (U) Negative Negative [facility] Blood erythrocytes count (nu mber/volume)Ordered By: Dr. Casanova on 10-13-2022 RBC (Bld) [#/Vol] 4.21 10*6/uL 4.6-6.2 [facility] Blood hemoglobin measurement (mass/volume)Ordered By: Dr. Casanova on 10-13-2022 Hemoglobin (Bld) [Mass/Vol] 13.6 g/dL 13.0-16.5 [facility] Blood lymphocytes/100 leukoc ytesOrdered By: Dr. Casanova on 10-13-2022 Lymphocytes/100 WBC (Bld) 22.6 % 19-41 [facility] Blood monocytes/100 leukocyt esOrdered By: Dr. Casanova on 10-13-2022 Monocytes/100 WBC (Bld) 13.5 % 0-10 [facility] Blood platelet mean volumeOr dered By: Dr. Casanova on 10-13-2022 Platelet mean volume (Bld) [Entitic vol] 11.7 fL 6.2-12.0 [facility] Determination of erythrocyte mean corpuscular volume (MCV)Ordered By: Dr. Casanova on 10-13-2022 MCV (RBC) [Entitic vol] 98.1 fL 80-94 [facility] Hematocrit Auto (Bld) [Volum e fraction]Ordered By: Dr. Casanova on 10-13-2022 Hematocrit (Bld) [Volume fraction] 41.3 % 40-54 [facility] Ketones Test strip Ql (U)Ord ered By: Dr. Casanova on 10-13-2022 Ketones Ql (U) Negative Negative [facility] Laboratory - Chemistry and C hemistry - challengeOrdered By: Dr. Casanova on 10-13-2022 ALP [Catalytic activity/Vol] 90 U/L 45-117 [facility] ALT [Catalytic activity/Vol] 38 U/L 16-61 [facility] CO2 [Moles/Vol] 29.0 mmol/L 21.0-32.0 [facility] Free T4 [Mass/Vol] 0.95 ng/dL 0.76-1.46 [facility] Globulin (S) [Mass/Vol] 2.9 g/dL 2.2-4.2 [facility] Urea nitrogen/Creatinine [Mass ratio] 16.5 mg/mg 10-20 [facility] Laboratory - Hematology and Cell countsOrdered By: Dr. Casanova on 10-13-2022 Erythrocyte distribution width (RBC) [Entitic vol] 45.1 fL 35.1-43.9 [facility] Erythrocyte distribution width (RBC) [Ratio] 12.6 % 11.6-14.6 [facility] Immature granulocytes/100 WBC (Bld) 0.600 % 0.0-0.9 [facility] Comment on above: IG% - Immature Granu locytes (promyelocytes, myelocytes and metamyelocytes) > 1% indicates that a LEFT SHIFT is Present. MCH (RBC) [Entitic mass] 32.3 pg 27.0-32.0 [facility] Nucleated RBC/100 WBC (Bld) [Ratio] 0 % 0-5 [facility] MCHC Auto (RBC) [Mass/Vol]Or dered By: Dr. Casanova on 10-13-2022 MCHC (RBC) [Mass/Vol] 32.9 g/dL 32-36 [facility] Mucus LM Ql (Urine sed)Order ed By: Dr. Casanova on 10-13-2022 Mucus Ql (Urine sed) 0 SEEN /hpf [facility] Nitrite Test strip Ql (U)Ord ered By: Dr. Casanova on 10-13-2022 Nitrite Ql (U) Negative Negative [facility] No Panel InformationOrdered By: Dr. Casanova on 10-13-2022 Estimated GFR (MDRD) Amer 82 mL/min >60 [facility] Comment on above: GFR Calc Estimated GFR (MDRD) Non-Af Amer 68 mL/min >60 [facility] Comment on above: Non- GFR Calc Thyroid Stimulating Hormone (TSH) 1.85 uIU/mL 0.358-3.74 [facility] Vitamin D 25-Hydroxy 70.0 ng/mL [facility] Comment on above: Vitamin D 25(OH) Sta tus Range Deficiency <20 ng/mL (50nmol/L) Insufficiency 20 - 30 ng/mL (50 - 75 nmol/L) Sufficiency 30 - 100 ng/mL (75 - 250 nmol/L) Toxicity >100 ng/mL (>250 nmol/L) Platelets bldOrdered By: Dr. Casanova on 10-13-2022 Platelets (Bld) [#/Vol] 205 10*3/uL 150-450 [facility] Protein Test strip Ql (U)Ord ered By: Dr. Casanova on 10-13-2022 Protein Ql (U) Negative Negative [facility] Serum or plasma albumin butch urement (mass/volume)Ordered By: Dr. Casanova on 10-13-2022 Albumin [Mass/Vol] 3.8 g/dL 3.2-5.0 [facility] Serum or plasma albumin/glob ulin mass ratioOrdered By: Dr. Casanova on 10-13-2022 Albumin/Globulin [Mass ratio] 1.3 {ratio} 0.9-2.4 [facility] Serum or plasma calcium butch urement (mass/volume)Ordered By: Dr. Casanova on 10-13-2022 Calcium [Mass/Vol] 9.0 mg/dL 8.5-10.1 [facility] Serum or plasma cholesterol in HDL measurement (mass/volume)Ordered By: Dr. Casanova on 10-13-2022 Cholesterol in HDL [Mass/Vol] 56 mg/dL >40 [facility] Comment on above: The drugs N-Acetylcy steine and Metamizole may falsely depress this assay. Reference Range HDL <40 mg/dL Low HDL Cholesterol HDL >or= 60 mg/dL High HDL Cholesterol Serum or plasma cholesterol in VLDL measurement (mass/volume)Ordered By: Dr. Casanova on 10-13-2022 Cholesterol in VLDL [Mass/Vol] 18 mg/dL 5-40 [facility] Serum or plasma creatinine m easurement (mass/volume)Ordered By: Dr. Casanova on 10-13-2022 Creatinine [Mass/Vol] 1.15 mg/dL 0.70-1.30 [facility] Comment on above: The validity of the calculated GFR & GFRAA in patients over 70 years has not been determined. Clinical correlation is essential. Serum or plasma low density lipoprotein (LDL) cholesterol measurement (mass/volume)Ordered By: Dr. Casanova on 10-13-2022 Cholesterol in LDL [Mass/Vol] 47 mg/dL 0-130 [facility] Serum or plasma urea nitroge n measurement (mass/volume)Ordered By: Dr. Casanova on 10-13-2022 Urea nitrogen [Mass/Vol] 19 mg/dL 7-18 [facility] Squamous epithelial cells de tection in urine sediment by light microscopyOrdered By: Dr. Casanova on 10-13-2022 Epithelial cells.squamous LM Ql (Urine sed) 0 SEEN /hpf 0-5 [facility] Thin prep Papanicolaou smear with manual screeningOrdered By: Dr. Casanova on 10-13-2022 Thin prep Papanicolaou smear with manual screening 14 U/L 15-37 [facility] Thin prep Papanicolaou smear with manual screening 6 5-15 [facility] Urine blood detectionOrdered By: Dr. Casanova on 10-13-2022 RBC Ql (U) Negative Negative [facility] RBC Ql (U) 0 SEEN /hpf 0-5 [facility] Urine clarityOrdered By: Dr. Casanova on 10-13-2022 Clarity (U) Clear Clear [facility] Urine color determinationOrd ered By: Dr. Casanova on 10-13-2022 Color (U) Yellow Yellow [facility] Urine glucose detectionOrder ed By: Dr. Casanova on 10-13-2022 Glucose Ql (U) Normal mg/dl Normal [facility] Urine leukocyte esterase det ection by dipstickOrdered By: Dr. Casanova on 10-13-2022 Leukocyte esterase Test strip Ql (U) Negative Negative [facility] Urine pHOrdered By: Dr. Verna del real on 10-13-2022 pH (U) 7.0 [pH] 5.0 - 8.0 [facility] Urine sediment bacteria coun t by microscopy (number/high power field)Ordered By: Dr. Casanova on 10-13-2022 Bacteria LM.HPF (Urine sed) [#/Area] 0 /[HPF] None Seen [facility] Urine specific gravity measu rementOrdered By: Dr. Casanova on 10-13-2022 Specific gravity (U) [Rel density] 1.010 1.002-1.030 [facility] Urobilinogen Auto test strip Ql (U)Ordered By: Dr. Casanova on 10-13-2022 Urobilinogen Ql (U) Normal mg/dl Normal [facility] Whole blood hemoglobin A1c/t otal hemoglobin ratio (mass fraction)Ordered By: Dr. Casanova on 10-13-2022 HbA1c (Bld) [Mass fraction] 5.8 % 3.8-5.6 [facility] Comment on above: Normal < 5.7 % Predi abetic 5.7 - 6.4 % Diabetic >or= 6.5 % Please note range changes. No Panel InformationOrdered By: Aleah Ball on 07-14-2022 Prostate Specific Antigen Screen 0.17 ng/mL 0.00-4.00 [facility] Comment on above: This test was perfor med using the TPSA assay method [facility]. Values obtained with differentassay methods cannot be used interchangably.When changing PSA assays in the course of monitoring apatient, additional sequential testing should be carriedout to confirm baseline values. Absolute lymphocyte counton 03-11-2022 Lymphocytes Auto (Unsp spec) [#/Vol] 1.62 10*3/uL 0.83-4.51 [facility] Work Phone: Basophil percentageon 2021 Basophils/100 WBC (Bld) 0.5 % 0-1 [facility] Work Phone: Bilirubin [Mass/Vol] 0.40 mg/dL 0.20-1.00 [facility] Work Phone: Comment on above: For patients on eltr ombopag therapy, use of Dimension [place] TBIL is not recommended. Chloride [Moles/Vol] 107 mmol/L 98-107 [facility] Work Phone: Cholesterol [Mass/Vol] 126 mg/dL <200 [facility] Work Phone: Comment on above: <200 mg/dL Desirable 200-240 mg/dL Borderline >240 mg/dL High Risk Eosinophils/100 WBC (Bld) 1.5 % 0-5 [facility] Work Phone: Glucose [Mass/Vol] 101 mg/dL 74-106 [facility] Work Phone: Comment on above: Fasting Glucose resu lt from 100 to 125 mg/dL suggests IMPAIRED HOMEOSTASIS per A.D.A. criteria. Neutrophils (Bld) [#/Vol] 5.6 10*3/uL 2.0-7.7 [facility] Work Phone: Neutrophils/100 WBC (Bld) 68.5 % 47-70 [facility] Work Phone: Potassium [Moles/Vol] 4.3 mmol/L 3.5-5.1 [facility] Work Phone: Protein [Mass/Vol] 6.6 g/dL 6.4-8.2 [facility] Work Phone: Sodium [Moles/Vol] 139 mmol/L 136-145 [facility] Work Phone: Triglyceride [Mass/Vol] 93 mg/dL <199 [facility] Work Phone: Comment on above: The drugs N-Acetylcy steine and Metamizole may falsely depress this assay.Serum Triglycerides Reference Interval Normal <150 mg/dL Borderline high 150 - 199 mg/dL High 200 - 499 mg/dL Very High > or = 500 mg/dL WBC (Bld) [#/Vol] 8.1 10*3/uL 4.4-11.0 [facility] Work Phone: Blood erythrocytes count (nu mber/volume)on 03-11-2022 RBC (Bld) [#/Vol] 4.26 10*6/uL 4.6-6.2 [facility] Work Phone: Blood hemoglobin measurement (mass/volume)on 03-11-2022 Hemoglobin (Bld) [Mass/Vol] 13.6 g/dL 13.0-16.5 [facility] Work Phone: Blood lymphocytes/100 leukoc yteson 03-11-2022 Lymphocytes/100 WBC (Bld) 19.9 % 19-41 [facility] Work Phone: Blood monocytes/100 leukocyt eson 03-11-2022 Monocytes/100 WBC (Bld) 9.2 % 0-10 [facility] Work Phone: Blood platelet mean volumeon 03-11-2022 Platelet mean volume (Bld) [Entitic vol] 11.5 fL 6.2-12.0 [facility] Work Phone: Determination of erythrocyte mean corpuscular volume (MCV)on 03-11-2022 MCV (RBC) [Entitic vol] 97.4 fL 80-94 [facility] Work Phone: Hematocrit Auto (Bld) [Volum e fraction]on 03-11-2022 Hematocrit (Bld) [Volume fraction] 41.5 % 40-54 [facility] Work Phone: Laboratory - Chemistry and C hemistry - challengeon 03-11-2022 ALP [Catalytic activity/Vol] 95 U/L 45-117 [facility] Work Phone: [phone] ALT [Catalytic activity/Vol] 22 U/L 16-61 [facility] Work Phone: [phone] CO2 [Moles/Vol] 27.0 mmol/L 21.0-32.0 [facility] Work Phone: [phone] Free T4 [Mass/Vol] 0.90 ng/dL 0.76-1.46 [facility] Work Phone: [phone] Globulin (S) [Mass/Vol] 2.8 g/dL 2.2-4.2 [facility] Work Phone: [phone] Urea nitrogen/Creatinine [Mass ratio] 9.1 mg/mg 10-20 [facility] Work Phone: [phone] Laboratory - Hematology and Cell countson 03-11-2022 Erythrocyte distribution width (RBC) [Entitic vol] 44.9 fL 35.1-43.9 [facility] Work Phone: [phone] Erythrocyte distribution width (RBC) [Ratio] 12.5 % 11.6-14.6 [facility] Work Phone: [phone] Immature granulocytes/100 WBC (Bld) 0.400 % 0.0-0.9 [facility] Work Phone: [phone] Comment on above: IG% - Immature Granu locytes (promyelocytes, myelocytes and metamyelocytes) > 1% indicates that a LEFT SHIFT is Present. MCH (RBC) [Entitic mass] 31.9 pg 27.0-32.0 [facility] Work Phone: [phone] Nucleated RBC/100 WBC (Bld) [Ratio] 0 % 0-5 [facility] Work Phone: [phone] MCHC Auto (RBC) [Mass/Vol]on 03-11-2022 MCHC (RBC) [Mass/Vol] 32.8 g/dL 32-36 [facility] Work Phone: [phone] No Panel Informationon 03-11 Estimated GFR (MDRD) Amer 97 mL/min >60 [facility] Work Phone: [phone] Comment on above: GFR Calc Estimated GFR (MDRD) Non-Af Amer 80 mL/min >60 [facility] Work Phone: Comment on above: Non- GFR Calc Thyroid Stimulating Hormone (TSH) 2.25 uIU/mL 0.358-3.74 [facility] Work Phone: Vitamin D 25-Hydroxy 69.8 ng/mL [facility] Work Phone: Comment on above: Vitamin D 25(OH) Sta tus Range Deficiency <20 ng/mL (50nmol/L) Insufficiency 20 - 30 ng/mL (50 - 75 nmol/L) Sufficiency 30 - 100 ng/mL (75 - 250 nmol/L) Toxicity >100 ng/mL (>250 nmol/L) Platelets bldon 03-11-2022 Platelets (Bld) [#/Vol] 219 10*3/uL 150-450 [facility] Work Phone: [phone] Serum or plasma albumin butch urement (mass/volume)on 03-11-2022 Albumin [Mass/Vol] 3.8 g/dL 3.2-5.0 [facility] Work Phone: Serum or plasma albumin/glob ulin mass ratioon 03-11-2022 Albumin/Globulin [Mass ratio] 1.4 {ratio} 0.9-2.4 [facility] Work Phone: Serum or plasma calcium butch urement (mass/volume)on 03-11-2022 Calcium [Mass/Vol] 8.9 mg/dL 8.5-10.1 [facility] Work Phone: [phone] Serum or plasma cholesterol in HDL measurement (mass/volume)on 03-11-2022 Cholesterol in HDL [Mass/Vol] 48 mg/dL >40 [facility] Work Phone: Comment on above: The drugs N-Acetylcy steine and Metamizole may falsely depress this assay. Reference Range HDL <40 mg/dL Low HDL Cholesterol HDL >or= 60 mg/dL High HDL Cholesterol Serum or plasma cholesterol in VLDL measurement (mass/volume)on 06-16-2022 Cholesterol in VLDL [Mass/Vol] 19 mg/dL 5-40 [facility] Work Phone: Serum or plasma creatinine m easurement (mass/volume)on 03-11-2022 Creatinine [Mass/Vol] 0.99 mg/dL 0.70-1.30 [facility] Work Phone: Comment on above: The validity of the calculated GFR & GFRAA in patients over 70 years has not been determined. Clinical correlation is essential. Serum or plasma low density lipoprotein (LDL) cholesterol measurement (mass/volume)on 03-11-2022 Cholesterol in LDL [Mass/Vol] 59 mg/dL 0-130 [facility] Work Phone: Serum or plasma urea nitroge n measurement (mass/volume)on 03-11-2022 Urea nitrogen [Mass/Vol] 9 mg/dL 7-18 [facility] Work Phone: Thin prep Papanicolaou smear with manual screeningon 03-11-2022 Thin prep Papanicolaou smear with manual screening 14 U/L 15-37 [facility] Work Phone: Thin prep Papanicolaou smear with manual screening 5 5-15 [facility] Work Phone: OBSOLETEon 11-16-2020 OBSOLETE Refill (JACINTA) KALE SHEEHAN ([id number]) 1955 M Date Time Provider Department 11/16/20 EDIS GUY During your visit today, we recorded the following information about you: Ping Burnette CMA 11/17/2020 11:39 AM Signed Pharmacy faxed requesting the following refill. Pending Prescriptions Disp Refills SYMBICORT 160 MCG-4.5 MCG/ACTUATION HFA AEROSOL INHALER 10.2 g 5 Sig: Inhale 1 Puff as instructed twice daily. CHEMA: Yes Patient last appointment: Visit date not found Patient Phone numbers: [phone] (home) Request is for script(s) to be escript to pharmacy. Ping Burnette [employer] Allergies As of Date: 11/16/2020 Noted Allergy [...] daily. FLUTICASONE PROPIONATE 50 MCG* Use 1 [place] in each nostril d* IPRATROPIUM 20 MCG-ALBUTEROL [...] by EDIS GUY MD on 11/17/20 Normal [facility] CBCon 12-31-2018 Erythrocyte distribution width Ratio (RBC) 12.6 % Normal 11.5-15.0 [facility] Comment on above: Performed By: #### C BC, CK, CMP #### [facility] [address] [place] [address] Hematocrit Volume Fraction (Bld) 43.5 % Normal 39.0-51.0 [facility] Comment on above: Performed By: #### C BC, CK, CMP #### [facility] [address] [place] [address] Hemoglobin mass conc (Bld) 14.8 g/dL Normal 13.0-17.0 [facility] Comment on above: Performed By: #### C BC, CK, CMP #### [facility] [address] [place] [address] MCH Entitic mass (RBC) 31.8 pG Normal 26.0-34.0 [place] Comment on above: Performed By: #### C BC, CK, CMP #### [facility] [address] [place] [address] MCHC mass conc (RBC) 34.0 g/dL Normal 30.5-36.0 [facility] Comment on above: Performed By: #### C BC, CK, CMP #### [facility] [address] [place] [address] MCV Entitic volume (RBC) 93.5 fL Normal 80.0-100.0 [facility] Comment on above: Performed By: #### C BC, CK, CMP #### [facility] [address] [place] [address] Platelet mean volume Entitic volume (Bld) 11.6 fL Normal 9.0-12.7 [facility] Comment on above: Performed By: #### C BC, CK, CMP #### [facility] [address] [facility] [phone] Platelets #/vol (Bld) 184 10*3/uL Normal 150-400 [place] Comment on above: Performed By: #### C BC, CK, CMP #### [facility] [address] [facility] [phone] RBC #/vol (Bld) 4.65 10*6/uL Normal 4.20-6.00 [facility] Comment on above: Performed By: #### C BC, CK, CMP #### [facility] [address] [facility] [phone] WBC #/vol (Bld) 10.07 10*3/uL Normal 3.70-11.00 [facility] Comment on above: Performed By: #### C BC, CK, CMP #### [facility] [address] [facility] [phone] CKon 12-31-2018 CK enzyme act/vol 405 U/L High 51-298 [facility] Comment on above: Performed By: #### C BC, CK, CMP #### [facility] [address] [facility] [phone] CNCOon 12-31-2018 CNCO Letter Text Letter Text Normal [facility] CT ABD/PEL W IVCONon 019 CT ABD/PEL W IVCON * * *Final Report* * * DATE OF EXAM: Dec 31 2018 11:15AM [facility] 0530 - CT ABD/PEL W IVCON / [...] or pericolonic inflammatory change to suggest diverticulitis.. Statistics Manager: LUIS Transcribe Date/Time: Dec 31 2018 12:34P Dictated by : ALLEGRA EPPS MD This examination was interpreted and the report reviewed and electronically signed by: ALLEGRA EPPS MD on Dec 31 2018 12:49PM EST [id number] N Normal [facility] Comp Metabolic Panelon 12-31 Albumin mass conc 4.8 g/dL Normal 3.9-4.9 [facility] Comment on above: Performed By: #### C BC, CK, CMP #### [facility] [address] [facility] [phone] ALP enzyme act/vol 87 U/L Normal 38-113 [facility] Comment on above: Performed By: #### C BC, CK, CMP #### [facility] [address] [address] ALT enzyme act/vol 15 U/L Normal 10-54 [facility] Comment on above: Performed By: #### C BC, CK, CMP #### [facility] [address] [address] Anion gap molar conc 6 mmol/L Low 9-18 [facility] Comment on above: Performed By: #### C BC, CK, CMP #### [facility] [address] [address] AST enzyme act/vol 19 U/L Normal 14-40 [facility] Comment on above: Performed By: #### C BC, CK, CMP #### [facility] [address] [address] Bilirubin mass conc 0.6 mg/dL Normal 0.2-1.3 [facility] Comment on above: Performed By: #### C BC, CK, CMP #### [facility] [address] [address] Calcium mass conc 9.3 mg/dL Normal 8.5-10.2 [facility] Comment on above: Performed By: #### C BC, CK, CMP #### [facility] [address] [address] Chloride molar conc 100 mmol/L Normal 97-105 [facility] Comment on above: Performed By: #### C BC, CK, CMP #### [facility] [facility] [address] [address] CO2 molar conc 30 mmol/L Normal 22-30 [facility] Comment on above: Performed By: #### C BC, CK, CMP #### [facility] [address] [address] Creatinine mass conc 1.13 mg/dL Normal 0.73-1.22 [facility] Comment on above: Performed By: #### C BC, CK, CMP #### [facility] [address] [address] eGFR- Amer. >60 Normal [facility] Comment on above: Performed By: #### C BC, CK, CMP #### [facility] [address] [address] GFR/1.73 sq M predicted among non-blacks MDRD vol rate/area (S/P/Bld) mL/min/{1.73_m2} Normal [facility] Comment on above: Result Comment: eGFR [...] By: #### C PAVAN WATSON, CMP #### [facility] [address] [place] [address] Glucose mass conc 95 mg/dL Normal 74-99 [facility] Comment on above: Result Comment: The [place] Diabetes Association (ADA) provides guidance for cutoff [...] Standards of Medical Care in Diabetes 2016, [place] [employer]. Diabetes Care. 2016.39(Suppl 1). Performed By: #### C BC, CK, CMP #### [facility] [address] [place] [address] Potassium molar conc 4.0 mmol/L Normal 3.7-5.1 [facility] Comment on above: Performed By: #### C SHIRLEY, CK, CMP #### [facility] [address] [place] [address] Protein mass conc 7.0 g/dL Normal 6.3-8.0 [facility] Comment on above: Performed By: #### C SHIRLEY, CK, CMP #### [facility] [address] [place] [address] Sodium molar conc 136 mmol/L Normal 136-144 [facility] Comment on above: Performed By: #### C BC, CK, CMP #### [facility] [address] [facility] [phone] Urea nitrogen mass conc 11 mg/dL Normal 9-24 [facility] Comment on above: Performed By: #### C BC, CK, CMP #### [facility] [address] [facility] [phone] ECG COMPLETEon 12-31-2018 ECG COMPLETE NAME : KALE SHEEHAN PID : [id number] : 1955 Gender : Male Race : ORD : [id number] Procedure Date : Dec 30 2018 22:19:31 Edit Date : Dec 31 2018 09:20:00 Diagnosis:NORMAL SINUS RHYTHM LEFT AXIS DEVIATION ABNORMAL ECG NSR agree Confirmed by Kuldeep DUONG EDWARD F. ([id number]), city editor TONY PATEL ([id number]) on 12/31/2018 9:19:59 AM Ventricular Rate : 85 BPM Atrial Rate : 85 BPM P-R Interval : 140 ms QRS Duration : 84 ms Q-T Interval : 354 ms QTC Calculation(Bezet) : 421 ms P [place] : 78 degrees R [place] : -64 degrees T [place] : 49 degrees Test Reason : Chest Pain Location : 1 : ER 5 Overread By : Kuldeep DUONG EDWARD F. Edited By : TONY PATEL Referred By : , Acquired by : , [facility] ED NOTEon 12-31-2018 ED NOTE HNO ID: [id number] Author: Ruth Torre) JANELLE Gordillo Service: ? Author Type: Registered Nurse Type: ED Notes Filed: 12/30/2018 11:59 PM Note Text: Pt and pt family requesting to stay at hospital for admission. Pt and pt family not willing to wait for [place] approval. [facility] ED NOTE HNO ID: [id number] Author: Ruth TruongRn) Duy, JANELLE Service: ? Author Type: Registered Nurse Type: ED Notes Filed: 12/30/2018 11:58 PM Note Text: Message left with [place] hospital transfer line for admission. [facility] ED NOTE HNO ID: [id number] Author: Ruth (Marie Gordillo RN Service: ? Author Type: Registered Nurse Type: ED Notes Filed: 12/30/2018 11:07 PM Note Text: Pt requesting breathing treatment. [facility] ED PROV NOTEon 12-31-2018 Protein mass conc HNO ID: [id number] Author: Ricardo Duong MD Service: ? Author [...] assigned to observation medicine Ricardo Duong MD [facility] SIGNATURE: MD Ricardo Merino MD 12/30/18 [id number] Normal [facility] HISTORY PHYSICALon 9 HISTORY PHYSICAL HNO ID: [id number] Author: Mae Cueva Service: Hospital Medicine Author Type: Physician Type: HANDP Filed: 12/31/2018 12:44 AM Note Text: SERVICE DATE: 12/31/2018 SERVICE TIME: 12:43 AM HOSPITAL MEDICINE HISTORY AND PHYSICAL PCP: Cliff Pastor MD NIGHT AND WEEKEND COVERAGE: Nights: Please contact pager [phone]. SUBJECTIVE Chief Complaint: Shortness of breath for [...] assistance in establishment of care with a boilers and pressure vessels inspector either in this admission or as an [...] 31, 2018 TIME: 12:43 AM PAGER/CONTACT #: [phone] Normal [facility] Legionella Urine Agon 2018 Legionella Urine Ag Negative Normal Negative [facility] Comment on above: Performed By: #### C BC, CK, CMP #### [facility] [address] [address] Lipaseon 12-31-2018 Lipase enzyme act/vol 19 U/L Normal 16-[address] [facility] Comment on above: Performed By: #### C SHIRLEY, CK, CMP #### [facility] [address] [address] Mycoplasma IgM ABon 01-01-20 19 M. pneumo IgM, Qual Negative Normal Negative [facility] Comment on above: Result Comment: No s ignificant amount of IgM antibodies to M. pneumoniae detected. A nonreactive result indicates no current/previous infection. Performed By: #### C SHIRLEY, CK, CMP #### [facility] [address] [address] Mycoplasma IgM AB 0.52 OD Ratio Normal [facility] Comment on above: Result Comment: Inde x Values/OD Ratios are interpreted as follows: Negative: < or = 0.90 Equivocal: 0.91 to 1.09 Positive: > or = 1.10 The magnitude of the measured result above the cutoff is not indicative of the total amount of antibody present and cannot be correlated to IFA titers. Performed By: #### C SHIRLEY, CK, CMP #### [facility] [address] [address] NT Pro BNPon 12-31-2018 Protein mass conc 61 pg/mL Normal <125 [facility] Comment on above: Performed By: #### N TBNP #### [facility] [address] [address] NURSING PROGon 12-31-2018 Protein mass conc HNO ID: [id number] Author: Sirisha (Rn) JANELLE Ryan Service: Nursing Author Type: Registered Nurse Type: Nursing Progress Note Filed: 12/31/2018 3:10 PM Note Text: Nursing Progress Note Patient Name: Kale Sheehna Patient Location: [facility] Daily Note: Pt AANDO x 3, [...] note was completed by: Sirisha Ryan RN [facility] Protein mass conc HNO ID: [id number] Author: Ita (Rn) JANELLE Yang Service: Nursing Author Type: Registered Nurse Type: Nursing Progress Note Filed: 12/31/2018 5:13 AM Note Text: Nursing Progress Note Patient Name: Kale Sheehan Patient Location: [place] [address]/[id number] -2 0000- admission/assessment complete and documented. Pt [...] was completed by: Ita Yang RN Normal [facility] Staph aureus PCRon 9 MRSA PCR Negative [facility] Comment on above: Performed By: #### C BC, CK, CMP #### [facility] [address] [address] S aureus Spec Source Nasal Normal [facility] Comment on above: Performed By: #### C BC, CK, CMP #### [facility] [address] [address] Staph aureus PCR Negative [facility] Comment on above: Performed By: #### C BC, CK, CMP #### [facility] [address] [address] Troponin Ton 12-31-2018 Troponin T.cardiac mass conc ug/L Normal 0.000-0.029 [facility] Comment on above: Performed By: #### T NT #### [facility] [address] [address] Urine Strep Pneumo FOR WEST USE ONLYon 12-31-2018 Urine Strep Pneumo FOR WEST USE ONLY Negative Normal Negative [facility] Comment on above: Result Comment: Stre p Pneumo vaccine may cause a false positive Strep Pneumo antigen result in the 48 hours following vaccine. Performed By: #### C BC, CK, CMP #### [facility] [address] [address] XR CHEST 2V FRONTAL/LATon XR CHEST 2V [...] IMPRESSION: PULMONARY EMPHYSEMA. NO ACUTE RADIOGRAPHIC ABNORMALITY. Statistics Manager: PSCTiffany Transcribe Date/Time: Dec 30 2018 10:42P Dictated by : GARCÍA DANIELLE MD This examination was interpreted and the report reviewed and electronically signed by: GARCÍA DANIELLE MD on Dec 30 2018 10:43PM EST [id number] Normal [facility] Basic Panelon 03-12-2018 Anion gap 5 mmol/L Low 8-20 [facility] Comment on above: Performed By: #### L CBCD ####[address] [address] BUN (urea nitrogen) 17 mg/dL Normal 7-25 [facility] Comment on above: Performed By: #### L CBCD ####[address] [address] BUN/Creatinine Ratio 16 mg/mg Normal 10-20 [facility] Comment on above: Performed By: #### L CBCD ####[address] [address] Calcium 9.0 mg/dL Normal 8.5-10.1 [facility] Comment on above: Performed By: #### L CBCD ####[address] [address] Chloride 108 mmol/L High 98-107 [facility] Comment on above: Performed By: #### L CBCD ####[address] [address] CO2 27 mmol/L Normal 21-32 [facility] Comment on above: Performed By: #### L CBCD ####[address] [place] [address] Creatinine 1.07 mg/dL Normal 0.67-1.17 [facility] Comment on above: Performed By: #### L CBCD ####[facility] [address] Glucose mass conc 111 mg/dL High 70-99 [facility] Comment on above: Performed By: #### L CBCD ####[facility] [address] Potassium molar conc 3.8 mmol/L Normal 3.5-5.1 [facility] Comment on above: Performed By: #### L CBCD ####[address] [address] Sodium 136 mmol/L Normal 136-145 [facility] Comment on above: Performed By: #### L CBCD ####[address] [address] CHEST 1 VIEWon 03-12-2018 CHEST 1 VIEW Performed at [facility] APPROVED BY: VALENTIN HAYWOOD MD EXAM: Single [...] 1. COPD.2. No active cardiopulmonary disease. Normal [facility] Hemogram/Diffon 03-12-2018 Abs. Baso 0.02 thou/cmm Normal 0.00-0.08 [facility] Comment on above: Performed By: #### L CBCD ####[address] [place] [address] Abs. Fannin 1.05 thou/cmm High 0.20-1.00 [facility] Comment on above: Performed By: #### L CBCD ####[address] [place] [address] Abs. Neut (ANC) 4.48 thou/cmm Normal 3.00-5.67 [facility] Comment on above: Performed By: #### L CBCD ####[address] [place] [address] Basophils/100 WBC Auto (Bld) 0.3 % Normal [facility] Comment on above: Performed By: #### L CBCD ####[facility] [place], [place] [address] Eosinophils 0.36 thou/cmm Normal 0.00-0.41 [facility] Comment on above: Performed By: #### L CBCD ####[address] [address] Eosinophils/100 leukocytes 4.9 % Normal [facility] Comment on above: Performed By: #### L CBCD ####[address] [address] Erythrocyte distribution width Auto Ratio (RBC) 12.3 % Normal 11.5-15.9 [facility] Comment on above: Performed By: #### L CBCD ####[address] [address] Erythrocytes (RBC) 4.40 mil/cmm Low 4.60-6.20 [facility] Comment on above: Performed By: #### L CBCD ####[address] [address] Hematocrit (HCT) 41.6 % Low 42.0-52.0 [facility] Comment on above: Performed By: #### L CBCD ####[address] [address] Hemoglobin mass conc (Bld) 14.1 g/dL Normal 14.0-18.0 [facility] Comment on above: Performed By: #### L CBCD ####[address] [address] Lymphocytes 1.49 thou/cmm Low 1.50-3.65 [facility] Comment on above: Performed By: #### L CBCD ####[address] [address] Lymphocytes/100 leukocytes 20.2 % Normal [facility] Comment on above: Performed By: #### L CBCD ####[address] [address] MCH 32.0 pg High 27.0-31.0 [facility] Comment on above: Performed By: #### L CBCD ####[facility] [place], [place] [address] MCHC mass conc (RBC) 33.9 % Normal 32.0-36.0 [facility] Comment on above: Performed By: #### L CBCD ####[address] [address] MCV 94.5 fL High 80.0-94.0 [facility] Comment on above: Performed By: #### L CBCD ####[address] [address] Monocytes/100 leukocytes 14.2 % Normal [facility] Comment on above: Performed By: #### L CBCD ####[address] [place] [address] Platelet mean volume (PMV) 10.9 fL High 7.1-10.5 [facility] Comment on above: Performed By: #### L CBCD ####[address] [address] Platelets 184 thou/cmm Normal 150-400 [facility] Comment on above: Performed By: #### L CBCD ####[address] [address] Seg Neutrophil 60.4 % Normal [facility] Comment on above: Performed By: #### L CBCD ####[address] [address] WBC (Leukocytes) 7.4 thou/cmm Normal 4.8-10.8 [facility] Comment on above: Performed By: #### L CBCD ####[address] [address] MDRD eGFRon 03-12-2018 eGFR (non-black) mL/min/{1.73_m2} Normal >60mL/m in/1.7 3m2 [facility] Comment on above: Result Comment: If t he patient is , multiply the result by 1.210. Performed By: #### L CBCD ####[address] [address] Troponin Ion 03-12-2018 Troponin I.cardiac mass conc ng/mL Normal <=0.07 [facility] Comment on above: Performed By: #### L CBCD ####[address] [address] Basic Panelon 02-08-2018 Anion gap 10 mmol/L Normal 8-20 [facility] Comment on above: Performed By: #### L P8 ####[address] [place] [address] BUN (urea nitrogen) 15 mg/dL Normal 7-25 [facility] Comment on above: Performed By: #### L P8 ####[address] [address] BUN/Creatinine Ratio 16 mg/mg Normal 10-20 [facility] Comment on above: Performed By: #### L P8 ####[address] [address] Calcium 9.2 mg/dL Normal 8.5-10.1 [facility] Comment on above: Performed By: #### L P8 ####[address] [address] Chloride 104 mmol/L Normal 98-107 [facility] Comment on above: Performed By: #### L P8 ####[address] [address] CO2 24 mmol/L Normal 21-32 [facility] Comment on above: Performed By: #### L P8 ####[address] [address] Creatinine 0.97 mg/dL Normal 0.67-1.17 [facility] Comment on above: Performed By: #### L P8 ####[address] [address] Glucose mass conc 117 mg/dL High 70-99 [facility] Comment on above: Performed By: #### L P8 ####[address] [address] Potassium molar conc 4.3 mmol/L Normal 3.5-5.1 [facility] Comment on above: Performed By: #### L P8 ####[facility] [place] [address] Sodium 133 mmol/L Low 136-145 [facility] Comment on above: Performed By: #### L P8 ####[place] [address] CHEST 2 VIEWSon 02-08-2018 CHEST 2 VIEWS Performed at [facility] APPROVED BY: Cornelius Carter MD EXAMINATION: CHEST RADIOGRAPH (2 VIEW FRONTAL & LATERAL) Clinical History: Cough, new onset MQ: XC2_5Comparison: 09/28/2017 RESULT: Lines, tubes, and devices: None. Lungs and pleura: No consolidation. No lung mass. No pleural effusion. Advanced degree of COPD changes Cardiomediastinal silhouette: Normal cardiomediastinal silhouette. Other: . IMPRESSION: No acute radiographic abnormality. Advanced degree of COPD changes Normal [facility] Cult and Smr Respiratoryon 0 02-08-2018 Cult and Smr Respiratory Test performed at [facility] Normal oropharyngeal ramirez present. Few WBC Few Mixed ramirez <25 epithelial cells per low power field Normal [facility] Comment on above: Performed By: #### L CBCD ####[place] [address] Hemogram/Diffon 02-08-2018 Abs. Baso 0.02 thou/cmm Normal 0.00-0.08 [facility] Comment on above: Performed By: #### L CBCD ####[place] [address] Abs. Fannin 0.70 thou/cmm Normal 0.20-1.00 [facility] Comment on above: Performed By: #### L CBCD ####[place] [address] Abs. Neut 3.94 thou/cmm Normal 3.00-5.67 [facility] Comment on above: Performed By: #### L CBCD ####[place] [address] Basophils/100 WBC Auto (Bld) 0.3 % Normal [facility] Comment on above: Performed By: #### L CBCD ####[facility] [place], [place] [address] Eosinophils 0.54 thou/cmm High 0.00-0.41 [facility] Comment on above: Performed By: #### L CBCD ####[address] [address] Eosinophils/100 leukocytes 8.6 % Normal [facility] Comment on above: Performed By: #### L CBCD ####[place] [address] Erythrocyte distribution width Auto Ratio (RBC) 11.9 % Normal 11.5-15.9 [facility] Comment on above: Performed By: #### L CBCD ####[address] [address] Erythrocytes (RBC) 4.76 mil/cmm Normal 4.60-6.20 [facility] Comment on above: Performed By: #### L CBCD ####[place] [address] Hematocrit (HCT) 44.7 % Normal 42.0-52.0 [facility] Comment on above: Performed By: #### L CBCD ####[place] [address] Hemoglobin mass conc (Bld) 15.1 g/dL Normal 14.0-18.0 [facility] Comment on above: Performed By: #### L CBCD ####[place] [address] Lymphocytes 1.10 thou/cmm Low 1.50-3.65 [facility] Comment on above: Performed By: #### L CBCD ####[address] [address] Lymphocytes/100 leukocytes 17.5 % Normal [facility] Comment on above: Performed By: #### L CBCD ####[address] [address] MCH 31.7 pg High 27.0-31.0 [facility] Comment on above: Performed By: #### L CBCD ####[address] [address] MCHC mass conc (RBC) 33.8 % Normal 32.0-36.0 [facility] Comment on above: Performed By: #### L CBCD ####[address] [address] MCV 93.9 fL Normal 80.0-94.0 [facility] Comment on above: Performed By: #### L CBCD ####[address] [address] Monocytes/100 leukocytes 11.1 % Normal [facility] Comment on above: Performed By: #### L CBCD ####[address] [address] Platelet mean volume (PMV) 11.2 fL High 7.1-10.5 [facility] Comment on above: Performed By: #### L CBCD ####[address] [address] Platelets 186 thou/cmm Normal 150-400 [facility] Comment on above: Performed By: #### L CBCD ####[address] [address] Seg Neutrophil 62.5 % Normal [facility] Comment on above: Performed By: #### L CBCD ####[address] [address] WBC (Leukocytes) 6.3 thou/cmm Normal 4.8-10.8 [facility] Comment on above: Performed By: #### L CBCD ####[address] [address] MDRD eGFRon 02-08-2018 eGFR (non-black) mL/min/{1.73_m2} Normal >60mL/m in/1.7 3m2 [facility] Comment on above: Result Comment: If t he patient is , multiply the result by 1.210. Performed By: #### L CBCD ####[place] [id number] Troponin Ion 02-08-2018 Troponin I.cardiac mass conc ng/mL Normal <=0.07 [facility] Comment on above: Performed By: #### L TRP ####[place] [address] CHEST 1 VIEWon 09-28-2017 CHEST 1 VIEW Performed at [facility] APPROVED BY: Edis Weaver MD EXAMINATION: CHEST RADIOGRAPH (SINGLE VIEW AP OR PA) Clinical History: Cough.M: XC1_3Comparison: None. RESULT: Lines, tubes, and devices: None. Lungs and pleura: No acute infiltrates or effusions. Cardiomediastinal silhouette: Normal cardiomediastinal silhouette. Other: None IMPRESSION: No acute radiographic abnormality. Normal [facility] Comprehensive Panelon 2017 Albumin 4.3 g/dL Normal 3.4-5.0 [facility] Comment on above: Performed By: #### L P14 ####[place] [address] Alkaline phosphatase (ALP) 81 U/L Normal 46-116 [facility] Comment on above: Performed By: #### L P14 ####[place] [address] ALT-SGPT Blood 37 U/L Normal 12-78 [facility] Comment on above: Performed By: #### L P14 ####[place] [address] Anion gap 9 mmol/L Normal 8-20 [facility] Comment on above: Performed By: #### L P14 ####[place] [address] AST-SGOT Blood 27 U/L Normal 15-37 [facility] Comment on above: Performed By: #### L P14 ####[place] [address] Bilirubin Ql (U) 0.4 mg/dL Normal 0.2-1.0 [facility] Comment on above: Performed By: #### L P14 ####[place] [address] BUN (urea nitrogen) 15 mg/dL Normal 7-25 [facility] Comment on above: Performed By: #### L P14 ####[facility] [place], [place] [address] BUN/Creatinine Ratio 15 mg/mg Normal 10-20 [facility] Comment on above: Performed By: #### L P14 ####[facility] [place], [place] [address] Calcium 9.6 mg/dL Normal 8.5-10.1 [facility] Comment on above: Performed By: #### L P14 ####[facility] [place], [place] [address] Chloride 105 mmol/L Normal 98-107 [facility] Comment on above: Performed By: #### L P14 ####[place] [address] CO2 27 mmol/L Normal 21-32 [facility] Comment on above: Performed By: #### L P14 ####[place] [address] Creatinine 1.02 mg/dL Normal 0.67-1.17 [facility] Comment on above: Performed By: #### L P14 ####[place] [address] Glucose mass conc 91 mg/dL Normal 70-99 [facility] Comment on above: Performed By: #### L P14 ####[address] [address] Potassium molar conc 4.2 mmol/L Normal 3.5-5.1 [facility] Comment on above: Performed By: #### L P14 ####[place] [address] Protein 7.5 g/dL Normal 6.4-8.2 [facility] Comment on above: Performed By: #### L P14 ####[place] [address] Sodium 137 mmol/L Normal 136-145 [facility] Comment on above: Performed By: #### L P14 ####[place] [address] Hemogram/Diffon 09-28-2017 Abs. Baso 0.04 thou/cmm Normal 0.00-0.08 [facility] Comment on above: Performed By: #### L CBCD ####[address] [address] Abs. Fannin 1.16 thou/cmm High 0.20-1.00 [facility] Comment on above: Performed By: #### L CBCD ####[place] [address] Abs. Neut 5.44 thou/cmm Normal 3.00-5.67 [facility] Comment on above: Performed By: #### L CBCD ####[place] [address] Basophils/100 WBC Auto (Bld) 0.4 % Normal [facility] Comment on above: Performed By: #### L CBCD ####[place] [address] Eosinophils 0.56 thou/cmm High 0.00-0.41 [facility] Comment on above: Performed By: #### L CBCD ####[place] [address] Eosinophils/100 leukocytes 6.2 % Normal [facility] Comment on above: Performed By: #### L CBCD ####[place] [address] Erythrocyte distribution width Auto Ratio (RBC) 12.3 % Normal 11.5-15.9 [facility] Comment on above: Performed By: #### L CBCD ####[address] [address] Erythrocytes (RBC) 4.32 mil/cmm Low 4.60-6.20 [facility] Comment on above: Performed By: #### L CBCD ####[address] [address] Hematocrit (HCT) 41.0 % Low 42.0-52.0 [facility] Comment on above: Performed By: #### L CBCD ####[place] [address] Hemoglobin mass conc (Bld) 14.1 g/dL Normal 14.0-18.0 [facility] Comment on above: Performed By: #### L CBCD ####[address] [address] Lymphocytes 1.80 thou/cmm Normal 1.50-3.65 [facility] Comment on above: Performed By: #### L CBCD ####[address] [address] Lymphocytes/100 leukocytes 20.0 % Normal [facility] Comment on above: Performed By: #### L CBCD ####[address] [address] MCH 32.6 pg High 27.0-31.0 [facility] [facility] Comment on above: Performed By: #### L CBCD ####[address] [address] MCHC mass conc (RBC) 34.4 % Normal 32.0-36.0 [facility] Comment on above: Performed By: #### L CBCD ####[address] [address] MCV 94.9 fL High 80.0-94.0 [facility] Comment on above: Performed By: #### L CBCD ####[address] [address] Monocytes/100 leukocytes 12.9 % Normal [facility] Comment on above: Performed By: #### L CBCD ####[address] [address] Platelet mean volume (PMV) 11.1 fL High 7.1-10.5 [facility] Comment on above: Performed By: #### L CBCD ####[address] [address] Platelets 176 thou/cmm Normal 150-400 [facility] Comment on above: Performed By: #### L CBCD ####[place] [address] Seg Neutrophil 60.5 % Normal [facility] Comment on above: Performed By: #### L CBCD ####[address] [address] WBC (Leukocytes) 9.0 thou/cmm Normal 4.8-10.8 [facility] Comment on above: Performed By: #### L CBCD ####[address] [address] MDRD eGFRon 09-28-2017 eGFR (non-black) mL/min/{1.73_m2} Normal >60mL/m in/1.7 3m2 [facility] Comment on above: Result Comment: If t he patient is , multiply the result by 1.210. Performed By: #### L GFR ####[place] [address] Magnesium Bloodon 09-28-2017 Magnesium 2.0 mg/dL Normal 1.8-2.4 [facility] Comment on above: Performed By: #### L MAG ####[place] [address] N-terminal Pro-BNPon 018 BNP 55.1 pg/mL Normal [facility] Comment on above: Result Comment: Acut e CHF Rule-in <50 yrs old >= 450 pg/ml >50 yrs old >= 900 pg/ml Abnormal Pro-BNP All patients >=300 pg/ml Performed By: #### L PBNP ####[place] [address] Troponin Ion 09-28-2017 Troponin I.cardiac mass conc ng/mL Normal <=0.07 [facility] Comment on above: Performed By: #### L TRP ####[address] [address] Vital Signs Date Time Vital Sign Value Performing Clinician Sawyer narayan 07-17-2025 10:30-0400 Body temperature 98.3 [degF] Dr. Alexsander Casanova MD Work Phone: [facility] 07-17-2025 10:30-0400 Diastolic blood pressure 77 mm[Hg] Dr. Alexsander Casanova MD Work Phone: [facility] 07-17-2025 10:30-0400 Heart rate 63 /min Dr. Alexsander Casanova MD Work Phone: 0(303)621-892340 [place] [address] 07-17-2025 10:30-0400 Respiratory rate 16 /min Dr. Alexsander Casanova MD Work Phone: 0(363)476-618035 [place] [address] 07-17-2025 10:30-0400 SaO2% (BldA) [Mass fraction] 95 % Dr. Alexsander Casanova MD Work Phone: 1(610)314-248440 [place] [address] 07-17-2025 10:30-0400 Systolic blood pressure 104 mm[Hg] Dr. Alexsander Casanova MD Work Phone: 3(674)448-338935 [place] [address] 07-17-2025 08:40-0400 Body height 170.[address] Alexsander Casanova MD Work Phone: 4(866)720-542035 [place] [address] 07-17-2025 08:40-0400 Body mass index (BMI) [Ratio] 29.7 kg/m2 Dr. Alexsander Casanova MD Work Phone: 9(452)364-007335 [place] [address] 07-17-2025 08:40-0400 Body weight [address] Alexsander Casanova MD Work Phone: 9(667)906-138235 [place] [address] 05-01-2025 08:43-0400 Body mass index (BMI) [Ratio] 31.1 kg/m2 Dr. Alexsander Casanova MD Work Phone: 1(430)353-808540 [place] [address] 05-01-2025 08:43-0400 Body temperature 97.4 [degF] Dr. Alexsander Casanova MD Work Phone: 9(297)852-434740 [place] [address] 05-01-2025 08:43-0400 Body weight 90.[address] Alexsander Casanova MD Work Phone: 1(639)799-304335 [place] [address] 05-01-2025 08:43-0400 Diastolic blood pressure 85 mm[Hg] Dr. Alexsander Casanova MD Work Phone: 6(561)236-877135 [place] [address] 05-01-2025 08:43-0400 Heart rate 84 /min Dr. Alexsander Casanova MD Work Phone: [facility] 05-01-2025 08:43-0400 Respiratory rate 16 /min Dr. Alexsander Casanova MD Work Phone: [facility] 05-01-2025 08:43-0400 SaO2% (BldA) [Mass fraction] 98 % Dr. Alexsander Casanova MD Work Phone: [facility] 05-01-2025 08:43-0400 Systolic blood pressure 124 mm[Hg] Dr. Alexsander Casanova MD Work Phone: 9(561)745-734940 [place] [address] 01-02-2025 07:56-0400 Body height 170.[address] Alexsander Casanova MD Work Phone: 3(587)675-098779 [address] 01-02-2025 07:56-0400 Body mass index (BMI) [Ratio] 32.2 kg/m2 Dr. Alexsander Casanova MD Work Phone: 0(754)922-268940 [place] [address] 01-02-2025 07:56-0400 Body temperature 97.4 [degF] Dr. Alexsander Casanova MD Work Phone: 8(940)123-869340 [place] [address] 01-02-2025 07:56-0400 Body weight 93.[address] Alexsander Casanova MD Work Phone: [facility] 01-02-2025 07:56-0400 Diastolic blood pressure 87 mm[Hg] Dr. Alexsander Casanova MD Work Phone: [facility] 01-02-2025 07:56-0400 Heart rate 84 /min Dr. Alexsander Casanova MD Work Phone: [facility] 01-02-2025 07:56-0400 Respiratory rate 18 /min Dr. Alexsander Casanova MD Work Phone: [facility] 01-02-2025 07:56-0400 SaO2% (BldA) [Mass fraction] 97 % Dr. Alexsnader Casanova MD Work Phone: [facility] 01-02-2025 07:56-0400 Systolic blood pressure 134 mm[Hg] Dr. Alexsander Casanova MD Work Phone: [facility] 09-07-2023 05:53-0500 Body height 170.[address] Alexsander Casanova Work Phone: [facility] 09-07-2023 05:53-0500 Body mass index (BMI) [Ratio] 30.5 kg/m2 Dr. Alexsander Casanova Work Phone: [facility] 09-07-2023 05:53-0500 Body temperature 95.1 [degF] Dr. Alexsander Casanova Work Phone: [facility] 09-07-2023 05:53-0500 Body weight 88.[address] Alexsander Casanova Work Phone: [facility] 09-07-2023 05:53-0500 Diastolic blood pressure 86 mm[Hg] Dr. Alexsander Casanova Work Phone: [facility] 09-07-2023 05:53-0500 Heart rate 79 /min Dr. Alexsander Casanova Work Phone: [facility] 09-07-2023 05:53-0500 Respiratory rate 20 /min Dr. Alexsander Casanova Work Phone: [facility] 09-07-2023 05:53-0500 SaO2% (BldA) [Mass fraction] 99 % Dr. Alexsander Casanova Work Phone: [facility] 09-07-2023 05:53-0500 Systolic blood pressure 126 mm[Hg] Dr. Alexsander Casanova Work Phone: [facility] 08-12-2022 12:47-0500 Body height 170.[address] Alexsander Casanova Work Phone: [facility] 08-12-2022 12:47-0500 Body mass index (BMI) [Ratio] 30.2 kg/m2 Dr. Alexsander Casanova Work Phone: [facility] 08-12-2022 12:47-0500 Body weight 87.[address] Alexsander Casanova Work Phone: [facility] 08-12-2022 12:47-0500 Body temperature 98.2 [degF] Dr. Alexsander Casanova Work Phone: [facility] 08-12-2022 12:47-0500 Diastolic blood pressure 85 mm[Hg] Dr. Alexasnder Casanova Work Phone: [facility] 08-12-2022 12:47-0500 Heart rate 81 /min Dr. Alexsander Casanvoa Work Phone: [facility] 08-12-2022 12:47-0500 Respiratory rate 16 /min Dr. Alexsander Casanova Work Phone: [facility] 08-12-2022 12:47-0500 SaO2% (BldA) [Mass fraction] 98 % Dr. Alexsander Casanova Work Phone: [facility] 08-12-2022 12:47-0500 Systolic blood pressure 128 mm[Hg] Dr. Alexsander Casanova Work Phone: [facility] 06-23-2022 10:31-0400 Body temperature 97.8 [degF] Dr. Alexsander Casanova Work Phone: [facility] Work Phone: 06-23-2022 10:31-0400 Diastolic blood pressure 82 mm[Hg] Dr. Alexsander Casanova Work Phone: [facility] Work Phone: 06-23-2022 10:31-0400 Heart rate 71 /min Dr. Alexsander Casanova Work Phone: [facility] Work Phone: 06-23-2022 10:31-0400 Respiratory rate 16 /min Dr. Alexsander Casanova Work Phone: [facility] Work Phone: 06-23-2022 10:31-0400 SaO2% (BldA) [Mass fraction] 100 % Dr. Alexsander Casanova Work Phone: [facility] Work Phone: 06-23-2022 10:31-0400 Systolic blood pressure 122 mm[Hg] Dr. Alexsander Casanova Work Phone: [facility] Work Phone: 06-23-2022 09:31-0400 Body height 170.[address] Alexsander Casanova Work Phone: [facility] Work Phone: 06-23-2022 09:31-0400 Body mass index (BMI) [Ratio] 31.1 kg/m2 Dr. Alexsander Casanova Work Phone: [facility] Work Phone: 06-23-2022 09:31-0400 Body weight [address] Alexsander Casanova Work Phone: [facility] Work Phone: 05-10-2022 11:35-0400 Body temperature 97.3 [degF] Dr. Alexsander Casanova Work Phone: [facility] Work Phone: 05-10-2022 11:35-0400 Diastolic blood pressure 75 mm[Hg] Dr. Alexsander Casanova Work Phone: [facility] Work Phone: 05-10-2022 11:35-0400 Heart rate 72 /min Dr. Alexsander Casanova Work Phone: [facility] Work Phone: 05-10-2022 11:35-0400 Respiratory rate 16 /min Dr. Alexsander Casanova Work Phone: [facility] Work Phone: 05-10-2022 11:35-0400 SaO2% (BldA) [Mass fraction] 97 % Dr. Alexsander Casanova Work Phone: [facility] Work Phone: 05-10-2022 11:35-0400 Systolic blood pressure 112 mm[Hg] Dr. Alexsander Casanova Work Phone: [facility] Work Phone: 05-10-2022 10:20-0400 Body height 170.[address] Alexsander Casanova Work Phone: [facility] Work Phone: 05-10-2022 10:20-0400 Body mass index (BMI) [Ratio] 30.7 kg/m2 Dr. Alexsander Casanova Work Phone: [facility] Work Phone: 05-10-2022 10:20-0400 Body weight [address] Alexsander Casanova Work Phone: [facility] Work Phone: 03-31-2022 15:08-0400 Body mass index (BMI) [Ratio] 30.4 kg/m2 Dr. Alexsander Casanova Work Phone: [facility] Work Phone: 03-31-2022 15:08-0400 Body temperature 97.5 [degF] Dr. Alexsander Casanova Work Phone: [facility] Work Phone: 03-31-2022 15:08-0400 Body weight 87.[address] Alexsander Casanova Work Phone: [facility] Work Phone: 03-31-2022 15:08-0400 Diastolic blood pressure 67 mm[Hg] Dr. Alexsander Casanova Work Phone: [facility] Work Phone: 03-31-2022 15:08-0400 Heart rate 80 /min Dr. Alexsander Casanova Work Phone: [facility] Work Phone: 03-31-2022 15:08-0400 Respiratory rate 16 /min Dr. Alexsander Casanova Work Phone: [facility] Work Phone: 03-31-2022 15:08-0400 SaO2% (BldA) [Mass fraction] 98 % Dr. Alexsander Casanova Work Phone: [facility] Work Phone: 03-31-2022 15:08-0400 Systolic blood pressure 99 mm[Hg] Dr. Alexsander Casanova Work Phone: [facility] Work Phone: 01-27-2022 12:36-0400 Body height 170.[address] Marcelo Morgan Work Phone: [facility] Work Phone: 01-27-2022 12:36-0400 Body mass index (BMI) [Ratio] 29.7 kg/m2 Dr. Marcelo Morgan Work Phone: [facility] Work Phone: 01-27-2022 12:36-0400 Body temperature 98.9 [degF] Dr. Marcelo Morgan Work Phone: [facility] Work Phone: 01-27-2022 12:36-0400 Body weight 86.[address] Marcelo Morgan Work Phone: [facility] Work Phone: 01-27-2022 12:36-0400 Diastolic blood pressure 86 mm[Hg] Dr. Marcelo Morgan Work Phone: [facility] Work Phone: 01-27-2022 12:36-0400 Heart rate 90 /min Dr. Marcelo Morgan Work Phone: [facility] Work Phone: 01-27-2022 12:36-0400 Respiratory rate 19 /min Dr. Marcelo Morgan Work Phone: [facility] Work Phone: 05-04-2022 12:36-0400 SaO2% (BldA) [Mass fraction] 92 % Dr. Marcelo Morgan Work Phone: [facility] Work Phone: 01-27-2022 12:36-0400 Systolic blood pressure 122 mm[Hg] Dr. Marcelo Morgan Work Phone: [facility] Work Phone: 12-11-2021 14:00-0400 Body mass index (BMI) [Ratio] 30.4 kg/m2 Dr. Marcelo Morgan Work Phone: [facility] Work Phone: 12-11-2021 14:00-0400 Body temperature 98.2 [degF] Dr. Marcelo Morgan Work Phone: [facility] Work Phone: 12-11-2021 14:00-0400 Body weight 87.[address] Marcelo Morgan Work Phone: [facility] Work Phone: 12-11-2021 14:00-0400 Diastolic blood pressure 80 mm[Hg] Dr. Marcelo Morgan Work Phone: [facility] Work Phone: 12-11-2021 14:00-0400 Heart rate 75 /min Dr. Marcelo Morgan Work Phone: [facility] Work Phone: 12-11-2021 14:00-0400 Respiratory rate 19 /min Dr. Marcelo Morgan Work Phone: [facility] Work Phone: 12-11-2021 14:00-0400 SaO2% (BldA) [Mass fraction] 98 % Dr. Marcelo Morgan Work Phone: [facility] Work Phone: 12-11-2021 14:00-0400 Systolic blood pressure 116 mm[Hg] Dr. Marcelo Morgan Work Phone: [facility] Work Phone: Encounters Encounter Date Encounter Type Care Provider Facility Start: 07-17-2025 ambulatory Alexsander Casanova Facilit y:[facility] Start: 07-17-2025 Non-patient / Non-visit Dr. Phani Kimbrough MD -[facility] Start: 07-17-2025 End: 07-17-2025 Admission to same day surgery center Dr. Lilian Kimbrough MD -Endoscopy Work Phone: Start: 07-17-2025 End: 07-17-2025 ambulatory Alexsander Casanova Facility:[facility] Start: 06-20-2025 End: 06-20-[address] Alexsander Casanova MD Work Phone: -Ultrasound [facility] Start: 06-20-2025 End: 06-20-[address] Alexsander Casanova MD -Ultrasound [facility] Work Phone: Start: 06-20-2025 End: 06-20-2025 ambulatory Alexsander Casanova Facility:[facility] Start: 06-13-2025 End: 06-13-[address] Alexsander Casanova MD Work Phone: -Laboratory [facility] Start: 06-13-2025 End: 06-13-[address] Alexsander Casanova MD -Laboratory [facility] Start: 06-13-2025 End: 06-13-2025 ambulatory Alexsander Casanova Facility:[facility] Start: 05-01-2025 End: 05-01-2025 Patient encounter procedure Elissa MALAVE -[facility] Work Phone: Start: 05-01-2025 End: 05-01-[address] Alexsander Casanova MD Work Phone: -[facility] Start: 04-15-2025 End: 04-15-[address] Alexsander Casanova MD Work Phone: -Sleep Lab Start: 04-15-2025 End: 04-15-2025 Patient encounter procedure Elissa West [employer]-C -Sleep Lab Work Phone: Start: 04-15-2025 End: 04-15-2025 ambulatory Elissa West [employer] Facility:[facility] Start: 01-02-2025 End: 01-02-2025 Patient encounter procedure Elissa West [employer]-C -[facility] Work Phone: Start: 01-02-2025 End: 01-02-2025 ambulatory Elissa West [employer] T[employer]ER Facility:[facility] Start: 12-26-2024 End: 12-26-[address] Alexsander Casanova MD Work Phone: [facility] Work Phone: Start: 12-26-2024 End: 12-26-2024 Patient encounter procedure Elissa West [employer]-C -Cat Scan, [facility] Work Phone: Start: 12-26-2024 End: 12-26-2024 ambulatory Elissa West NP Facility:[facility] Start: 09-07-2024 End: 09-07-[address] Alexsander Casanova MD -Ultrasound, [facility] Work Phone: Start: 09-07-2024 End: 09-07-2024 ambulatory Alexsander Casanova Facility:[facility] Start: 08-30-2024 End: 08-30-[address] Alexsander Casanova MD -Laboratory, [place] Work Phone: Start: 08-30-2024 End: 08-30-2024 ambulatory Alexsander Casanova Facility:[facility] Start: 11-29-2023 End: 11-29-[address] Alexsander Casanova Work Phone: [facility] Work Phone: Start: 11-29-2023 End: 11-29-[address] Alexsander Casanova Work Phone: [facility]-Pulmonary Services/Neurology Work Phone: Start: 10-18-2023 End: 10-18-[address] Alexsander Casanova Work Phone: [facility] Work Phone: Start: 10-18-2023 End: 10-18-[address] Alexsander Casanova Work Phone: [facility] Work Phone: Start: 09-07-2023 End: 09-07-[address] Alexsander Casanova Work Phone: [facility]-Pulmonary Medicine [facility] Work Phone: Start: 08-19-2023 End: 08-19-2023 ambulatory [facility] Work Phone: Start: 08-19-2023 End: 08-19-2023 Patient encounter procedure [facility]-Cat Scan, [facility] Work Phone: Start: 06-22-2023 End: 06-22-2023 Patient encounter procedure [facility] Start: 01-11-2023 End: 01-11-2023 ambulatory [facility] Work Phone: Start: 01-11-2023 End: 01-11-2023 Patient encounter procedure [facility] Start: 10-13-2022 End: 10-13-[address] lAexsander Casanova Work Phone: [facility] Work Phone: Start: 10-13-2022 End: 10-13-[address] Alexsander Casanova Work Phone: [facility] Start: 08-17-2022 End: 08-17-[address] Alexsander Casanova Work Phone: [facility] Work Phone: Start: 08-17-2022 End: 08-17-[address] Alexsander Casanova Work Phone: [facility] Start: 08-12-2022 End: 08-12-[address] Alexsander Casanova Work Phone: [facility]-Pulmonary Medicine [facility] Start: 07-14-2022 End: 07-14-[address] Alexsander Casanova Work Phone: [facility] Work Phone: Start: 07-14-2022 End: 07-14-[address] Alexsander Casanova Work Phone: [facility] Start: 06-23-2022 Non-patient / Non-visit Dr. Silvana Casanova Work Phone: [facility] Start: 06-23-2022 End: 06-23-2022 Admission to same day surgery center Dr. Alexsander Casanova Work Phone: [facility]-Endoscopy Start: 06-23-2022 End: 06-23-[address] Alexsander Casanova Work Phone: [facility] Work Phone: Start: 05-10-2022 Non-patient / Non-visit Dr. Silvana Casanova Work Phone: [facility] Start: 05-10-2022 End: 05-10-2022 Admission to same day surgery center Dr. Alexsander Casanova Work Phone: [facility]-Endoscopy Start: 03-31-2022 End: 03-31-[address] Alexsander Casanova Work Phone: [facility] Start: 03-11-2022 End: 03-11-[address] Marcelo Morgan Work Phone: [facility] Start: 01-27-2022 End: 01-27-[address] Marcelo [facility] Start: 01-11-2022 Refill Edis Guy MD Work Phone: Pulmonary Medicine Comment on above: Refill Request (Spir esme ) Start: 12-11-2021 End: 12-11-[address] Marcelo Morgan [facility] Start: 11-24-2021 Non-patient / Non-visit Dr. Dali Morgan Work Phone: [facility] Start: 11-24-2021 End: 11-24-[address] Marcelo Morgan Work Phone: [facility]-Pulmonary Services/Neurology Start: 12-31-2018 End: 12-31-2018 Patient encounter procedure [facility] Procedures Date Procedure Procedure Detail Performing Clinician [...] Treatment Date Care Activity Detail Author Start: 07-17-2025 Colonoscopy w/biopsy single/multiple COLONOSCOPY AND BIOPSY [facility] Start: 07-17-2025 Colsc flx w/rmvl of tumor polyp lesion snare tq COLONOSCOPY W/LESION REMOVAL [facility] Start: 07-17-2025 Patient discharge [facility] Start: 06-23-2022 Egd transoral biopsy single/multiple EGD BIOPSY SINGLE/MULTIPLE [facility] Work Phone: Start: 06-23-2022 Patient discharge [facility] Work Phone: Start: 05-27-2022 Influenza vaccination INFLUENZA (Season Ended) [facility] Start: 05-10-2022 Colonoscopy w/biopsy single/multiple COLONOSCOPY AND BIOPSY [facility] Work Phone: Start: 05-10-2022 Colsc flx w/rmvl of tumor polyp lesion snare tq COLONOSCOPY W/LESION REMOVAL [facility] Work Phone: Start: 05-10-2022 Egd transoral biopsy single/multiple EGD BIOPSY SINGLE/MULTIPLE [facility] Work Phone: Start: 05-10-2022 Patient discharge [facility] Work Phone: Start: 12-30-2021 DIABETES SCREEN DIABETES SCREEN [facility] Start: 2021 ADVANCE DIRECTIVE DISCUSSION ADVANCE DIRECTIVE DISCUSSION [facility] Start: 2021 PNEUMOVAX AGE 65 AND OVER WITH 5YR LOOKBACK (#1) PNEUMOVAX AGE 65 AND OVER WITH 5YR LOOKBACK (#1) [facility] Start: 2011 PROSTATE CANCER SCREENING DISCUSSION PROSTATE CANCER SCREENING DISCUSSION [facility] Start: 2006 SHINGRIX VACCINE (1 of 2) SHINGRIX VACCINE (1 of 2) [facility] Start: 2001 COLOGUARD (FIT-DNA) COLOGUARD (FIT-DNA) [facility] Start: 2001 Colonoscopy COLONOSCOPY [facility] Start: 2001 COLORECTAL CANCER SCREENING COLORECTAL CANCER SCREENING [facility] Start: [address] COLONOGRAPHY [facility] Start: 2001 FECAL OCCULT BLOOD FECAL OCCULT BLOOD [facility] Start: 2001 SIGMOIDOSCOPY SIGMOIDOSCOPY [facility] Start: 1991 LIPID SCREEN LIPID SCREEN [facility] Start: 1975 Urine microalbumin profile DTAP,TDAP,TD (1 - Tdap) [facility] Start: 1974 ANNUAL PCP TEAM CHRONIC DISEASE VISIT ANNUAL PCP TEAM CHRONIC DISEASE VISIT [facility] Start: 1974 HEPATITIS C SCREENING HEPATITIS C SCREENING [facility] Start: 1974 HIV SCREENING HIV SCREENING [facility] Start: 1968 Adult depression screening assessment DEPRESSION SCREENING [facility] Start: 1961 COVID-19 VACCINE (1) COVID-19 VACCINE (1) [facility] Start: 1956 ABDOMINAL AORTIC ANEURYSM SCREENING [facility] Colonoscopy [facility] Work Phone: CT Chest [facility] Work Phone: CT Chest [facility] Exercise tolerance test [facility] Work Phone: Measurement of respiratory function [facility] Patient referral [facility] Work Phone: Immunizations Immunization Date Immunization Notes Care Provider [facility] 07-05-2018 influenza, seasonal, injectable Edis Guy MD Work Phone: [facility] Work Phone: 03-22-2016 pneumococcal conjuga te vaccine, 13 valent Edis Guy MD Work Phone: [facility] Work Phone: Payers Date Payer Category Payer Medicare [id number] 2024 Self-pay [id number] 2021 Private Health Insurance [employer] [id number] 2021-Present [phone] [address] [place] [address] PPO [id number] 2018 Medicaid [employer] [id number] 2018-Present [phone] [address] [place] [address] Medicaid [id number] Medicaid [id number] Medicare [id number] Unknown [id number] Unknown VA AUTH REQUIR ED SEE NOTE [id number] Unknown [id number] Unknown [id number] Unknown [id number] Unknown [id number] 462 Unknown [id number] .[id number]. 462 Unknown [id number] .[id number]. 462 Unknown [id number] .[id number]. 462 Unknown [id number]. 462 Unknown [id number]. 462 Unknown [id number]. 462 Unknown [id number]. 462 Unknown [id number]. 462 Social History Date Type Detail Facility Start: 1976 Tobacco smoking stat us NEIS Smokes tobacco daily [facility] Start: 1976 History of tobacco use Cigarette Smo ker [facility] Start: 03-22-2019 Cigarettes smoked current (pack per day) - Reported 0.5 [facility] Start: 03-22-2019 Tobacco use and exposure Smokeless tobacco non-user [facility] Start: 04-28-2020 Alcohol intake Current non-dr rn on site of alcohol (finding) [facility] Start: 04-28-2020 Tobacco Comment Actively still smoking 1/2-1 PPD cigarettes, 04/28/2020, TO. [facility] Start: 1955 Sex Assigned At Not on file [facility] Start: 01-27-2022 End: 09-07-2023 Tobacco smoking status NHIS Unknown if ever smoked [facility] Start: 1955 Sex Assigned At Male [facility] Start: 12-13-2023 End: 07-17-2025 Tobacco smoking status NHIS Ex-smoker (finding) [facility] Start: 12-27-2024 Sex Male (finding) [facility] Sex Male [facility] Goals Date Patient Goal Desired Activity /State Mental Status Date Assessment Result Facility 07-17-2025 Cognitive function Voice/Name [facility] Work Phone: 06-23-2022 Cognitive function Voice/Name [facility] Work Phone: 05-10-2022 Cognitive function Voice/Name [facility] Work Phone: Clinical Notes 01-11-2022 to 07-17-2025 Note Date & Type Note Facility 07-17-2025 Consult note [facility] 07-17-2025 Procedure note [facility] 07-17-2025 Procedure note [facility] 07-17-2025 Consult note Note Date/Time July 17, 2025 9:35am [facility] Medical Records Department [address] [place] [address] Pre-Anesthesia Evaluation 07/17/25 0834 MR#: [id number] Acct: [id number] Name: KALE SHEEHAN Rep #:[id number] : 1955 69 From: Singh Salazar MD PCP: Dr. Alexsander Casanova MD Status:[facility] Y Race: C Location: [place] [address] ASA Classification* ASA Classification ASA Classification: 3 Assessment & Plan Anesthesia* Anesthesia Assessment Anesthesia Assessment: Discussed sedation and/or anesthesia options, risks, benefits, and alternatives with patient/parents/legal guardian/POA. Questions invited. The patient/parents/legal guardian/POA seems to understand and agrees to proceedwith anesthesia plan. Reviewed the physical assessment, medical history, allergy history and patient home medications list prior to surgery/procedure/anesthetic and documented any changes. Performed airway and anesthesia risk assessments. Anesthesia Type Anesthesia Type: MAC Anesthesia Focused Assessment* Airway Assessment Mouth opens: >3 cm Mallampati Score: II Labs Anesthesia Preop lab: CBC WBC, (4.4-11.0) 7.6 K/mm3 06/13/25, 14:09 RBC, (4.6-6.2) 4.39 M/mm3 L 06/13/25, 14:09 Hgb, (13.0-16.5) 14.1 g/dL 06/13/25, 14:09 Hct, (40-54) 41.6 % 06/13/25, 14:09 Plt Count, (150-450) 191 K/mm3 06/13/25, 14:09 CHEMISTRY Potassium, (3.3-5.1) 4.1 mmol/L 06/13/25, 14:09 Sodium, (133-145) 141 mmol/L 06/13/25, 14:09 Magnesium, (1.5-2.2) 2.2 mg/dL 06/13/25, 14:09 BUN, (4-19) 10 mg/dL 06/13/25, 14:09 Creatinine, (0.70-1.20) 1.00 mg/dL 06/13/25, 14:09 Glucose, (70-99) 81 mg/dL 06/13/25, 14:09 TSH, (0.300-4.200) 2.540 uIU/mL 06/13/25, 14:09 COAG Pre-Assessment Diagnosis/Proposed Procedure Planned Operative Procedure(s): COLONOSCOPY-OA Anesthesia History Anesthesia History - advertiser: Anesthesia History - advertiser Hx Hospitalization No 07/16/25 13:03 Any Problems With Anesthesia No 07/16/25 13:03 Cholinesterase deficiency No 07/16/25 13:03 You/Your Family Experience No 07/16/25 13:03 fever (hyperthermia) with Relationship Recent Exposure to Contagious No 06/23/22 09:31 Disease Does patient have nerve No 07/16/25 13:03 stimulator Patient instructed to have device shut off --Does patient have Pacemaker or ICD? When Was Last Pacemaker Check QUESTION #4 FULL TEXT: You/Your Family Experience fever (hyperthermia) with Anesthesia Last Oral Intake Last Oral intake: Last Oral Intake NPO since Meds taken in AM with sips of water? Meds patient instructed to take am of surgery PONV PONV - advertiser: PONV - advertiser Female No 07/16/25 13:03 HX of Motion Sickness No 07/16/25 13:03 HX of N/V After Surgery No 07/16/25 13:03 Non-Smoker Yes 07/16/25 13:03 Duration of Surgery greater No 07/16/25 13:03 than 60 minutes Number of Risk Factors 1 07/16/25 13:03 PONV Score Low Risk 07/16/25 13:03 Height & Weight Height & Weight: Anesthesia: Height & Weight Height 5 ft 7 in 05/01/25 08:43 Respiratory Assessment Respiratory Assessment - advertiser: Respiratory Tract Infection Hx - advertiser Hx Respiratory Tract Infection No 07/16/25 13:03 STOP Sleep Apnea STOP Sleep Apnea - advertiser: STOP Sleep Apnea - advertiser Hx Hypertension Yes: NO MED PRESENTLY 07/16/25 13:03 Hx Sleep Apnea No 07/16/25 13:03 CPAP BIPAP Do you snore loudly (louder No 07/16/25 13:03 than talking or can be heard Do you often feel tired/ No 07/16/25 13:03 fatigued/ sleepy during daytime? Has anyone observed you stop No 07/16/25 13:03 breathing during sleep? STOP Results Negative 07/16/25 13:03 QUESTION #5 FULL TEXT : Do you snore loudly (louder than talking or can be heard through closed doors)? 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 Specify any problems Hx of Preganancy in last 3 N/A 07/16/25 13:03 Months Nurse Filling Out Transfusion VCHRISTIN 07/16/25 13:03 & Questions: Date: 07/16/25 07/16/25 13:03 Time: 13:04 07/16/25 13:03 Patient unable to answer at this time (ie. confused, unrespo /Reproduction History /Reproductive History - advertiser: /Reproductive Hx- advertiser Hx Now No 07/16/25 13:03 Gestational Age (in weeks): EDC: Hx Hx Para Hx Section SAB No 07/16/25 13:03 PFSH Medical History Shortness of breath on exertion Former smoker Wears hearing aid Wears glasses Wears dentures Depression Anxiety Prostate disease Fatty liver Easy bruising Back pain History of hiatal hernia History of diverticulitis On home oxygen therapy Leg cramps Chronic cough History of stress test Hypertension GERD (gastroesophageal reflux disease) Prostate atrophy Osteoarthritis COPD (chronic obstructive pulmonary disease) Chronic bronchiolitis Carpal tunnel syndrome Asthma Arthritis Home Medications ?Medication ?Instructions ?Recorded ?Last Taken ?Type cholecalciferol (vitamin D3) 50 2,000 unit PO DAILY Unknown History mcg (2,000 unit) capsule multivitamin with folic acid 200 200 mcg PO DAILY 10/13 Unknown History mcg chewable tablet (Adult Multivitamin Extra Vitamin D3) tamsulosin 0.4 mg capsule 0.4 mg PO QHS 11/24/17 Unkno wn History albuterol sulfate 90 mcg/actuation 2 puff inhalation Q 6H PRN SOB 12/11/21 06/23/22 History aerosol inhaler 2 puff finasteride 5 mg tablet 5 mg PO DAILY 12/11/21 Unkno wn History docusate sodium 100 mg capsule 100 mg PO DAILY 2 Unknown History (Stool Softener) budesonide 160 mcg-glycopyr 9 2 inh inhalation BID 06/20 Unknown History mcg-formot 4.8 mcg/actuation HFA inhaler (Breztri Aerosphere) cyanocobalamin-liver extract tablet 1 tab PO QWEEK 03/20 Unknown History atorvastatin 20 mg tablet (Lipitor) 20 mg PO QHS 07/16 Unknown History Allergy/AdvReac Type Severity Reaction Status Date / Time ibuprofen Allergy Mild shakes Verified 07/16/25 12:56 formoterol AdvReac Unknown unknown Verified 07/16/25 12:56 mometasone furoate AdvReac Unknown unknown Verified 07/16/25 12:56 Family History Other Alcohol abuse Anemia Arthritis Heart disease Kidney disease Myocardial infarction Respiratory disease Surgical History Hx of colonoscopy History of esophagogastroduodenoscopy (EGD) Hx of foot surgery Social History Smoking Status: Former smoker quit date: 12/23/22 pack-years: 40 Tobacco: How many years used: 40 alcohol intake: never substance use type: does not use what type of physical activity do you participate in: none Review of Systems (Anesthesia) ROS Narrative System reviewed and no additional complaints, except as documented. 07/17/25834 <Electronically signed by Singh Salazar MD > Date _ Singh Salazar MD Cosigner Signature: Date CC: ~ Signed [facility] Work Phone: 1(396) 256-379010-22-2025 History and physical note Author Lilian Kimbrough [facility] Note Date/Time July 17, 2025 1 0:27am [facility] Medical Records Department [address] [place] [address] History & Physical Exam 07/17/25924 MR#: [id number] Acct: [id number] Name: KALE SHEEHAN Rep #:[id number] : 1955 69 From: Lilian Kimbrough MD PCP: Dr. Alexsander Casanova MD Status:[facility] Location: [address] - General General Date of Service: 07/17/25 HPI Narrative KALE SHEEHAN, is a 69 M who presents for screening colonoscopy due to historyof colon polyps. Patient's last colonoscopy was 04/2022 had multiple tubular adenomas at that time. Patient denies any family history of colon cancer. Patient has bowel movements daily denies any blood. [facility] Medical History Shortness of breath on exertion Former smoker Wears hearing aid Wears glasses Wears dentures Depression Anxiety Prostate disease Fatty liver Easy bruising Back pain History of hiatal hernia History of diverticulitis On home oxygen therapy Leg cramps Chronic cough History of stress test Hypertension GERD (gastroesophageal reflux disease) Prostate atrophy Osteoarthritis COPD (chronic obstructive pulmonary disease) Chronic bronchiolitis Carpal tunnel syndrome Asthma Arthritis Home Medications ?Medication ?Instructions ?Recorded ?Last Taken ?Type cholecalciferol (vitamin D3) 50 2,000 unit PO DAILY Unknown History mcg (2,000 unit) capsule multivitamin with folic acid 200 200 mcg PO DAILY 10/13 Unknown History mcg chewable tablet (Adult Multivitamin Extra Vitamin D3) tamsulosin 0.4 mg capsule 0.4 mg PO QHS 11/24/17 Unkno wn History albuterol sulfate 90 mcg/actuation 2 puff inhalation Q 6H PRN SOB 12/11/21 06/23/22 History aerosol inhaler 2 puff finasteride 5 mg tablet 5 mg PO DAILY 12/11/21 Unkno wn History docusate sodium 100 mg capsule 100 mg PO DAILY 2 Unknown History (Stool Softener) budesonide 160 mcg-glycopyr 9 2 inh inhalation BID 06/20 Unknown History mcg-formot 4.8 mcg/actuation HFA inhaler (Breztri Aerosphere) cyanocobalamin-liver extract tablet 1 tab PO QWEEK 03/20 Unknown History atorvastatin 20 mg tablet (Lipitor) 20 mg PO QHS 07/16 Unknown History Allergy/AdvReac Type Severity Reaction Status Date / Time ibuprofen Allergy Mild shakes Verified 07/17/25 08:38 formoterol AdvReac Unknown unknown Verified 07/17/25 08:38 mometasone furoate AdvReac Unknown unknown Verified 07/17/25 08:38 Family History Other Alcohol abuse Anemia Arthritis Heart disease Kidney disease Myocardial infarction Respiratory disease Surgical History Hx of colonoscopy History of esophagogastroduodenoscopy (EGD) Hx of foot surgery Social History Smoking Status: Former smoker quit date: 12/23/22 pack-years: 40 Tobacco: How many years used: 40 alcohol intake: never substance use type: does not use what type of physical activity do you participate in: none Past Medical/Surgical History Planned Operation Planned Operative Procedure(s): COLONOSCOPY-OA Previous Hospitalizations/Surgeries HX Hospitalizations: No Any Problems With Anesthesia: No You/Your Family Experience Fever (Hyperthermia) With Anes: No Cholinesterase deficiency: No Cardiovascular Hx Hypertension: Yes (NO MED PRESENTLY) Respiratory Hx Sleep Apnea: No Hx Respiratory Tract Infection/Cold (presently): No Do You Snore Loudly (louder than talking or can be heard): No Do You Often Feel Tired/ Fatigued/ Sleepy Dring Daytime?: No Has Anyone Observed You Stop Breathing During Sleep?: No Result (for STOP score): Negative Smoking Status: Former smoker Neurological Does patient have nerve stimulator: No Reproduction : No Miscellaneous Recent Exposure to Contagious Disease: No Allergies ibuprofen Allergy (Mild, Verified 07/17/25 08:38) shakes formoterol Adverse Reaction (Unknown, Verified 07/17/25 08:38) unknown mometasone furoate Adverse Reaction (Unknown, Verified 07/17/25 08:38) unknown Discharge Is Pt Admitted From a Care Home, or a [facility]: No After D/C, Where Do you Plan to Go: Return Home Vital Signs Vital Signs Vital Signs: 07/17/25 08:40 07/17/25 08:40 Temperature 98.1 F Temperature Source Temporal Pulse Rate 86 Respiratory Rate 18 Respiratory Pattern Normal Blood Pressure 101/79 Blood Pressure Mean 86 Blood Pressure Source Monitor Blood Pressure Position Sitting Blood Pressure Location Left Arm Pulse Ox 99 Oxygen Delivery Method Room Air Weight Weight: 189 lb 9.561 oz Body Mass Index (BMI) 29.7 Physical Exam Const alert, oriented x3 and no apparent distress HEENT normocephalic and head/scalp atraumatic Resp normal respiratory effort Cardio regular rate GI soft to palpation and non-tender; Negative for non-distended Palpation: Negative for guarding Extremity no clubbing, cyanosis or edema Skin no rashes or lesions noted Neuro CN's II-XII intact bilaterally Psych mental status grossly normal Assessment & Plan Assessment/Plan (1) Hx of colonic polyps: Surgery Risks - Colonoscopy I discussed with the patient the risks of the procedure: Yes Risks Include but are not Limited To: Risks include but are not limited to: Bleeding, perforation requiring further surgery, inability to complete colonoscopy requiring barium enema. 07/17/25 0927 <Electronically signed by Lilian Kimbrough MD> Cosigner Signature (if applicable): CC: Dr. Alexsander Casanova MD; Dr. Lilian Kimbrough MD~ Signed [facility] Work Phone: 1(989) 245-602410-22-2025 Consult note [facility] Medical Records Department [address] [place] [address] Anesthesia Postop Eval I 07/17/25 1020 MR#: [id number] Acct: [id number] Name: KALE SHEEHAN Rep #:[id number] : 1955 69 From: Edis Mccormack PCP: Dr. Alexsander Casanova MD Status:[facility] Y Race: C Location: [place] [address] Anesthesia: Postop Eval I Current Vital Signs Temperature: 98 F Pulse Rate: 70 Blood Pressure: 105/74 Respiratory Rate: 16 Pulse Ox: 98 Oxygen Delivery Method: Room Air Assessment Airway patent: Yes Spontaneous unlabored respirations: Yes Mental status: Awake and Calm nausea: No Vomiting: No Anesthesia Complication: No Fluid Hydration Crystalloid volume administer (ml): 500 Total IV fluid infused: 500 Progress Note Anesthesia document: Postop Eval 1 completed: Yes 07/17/25 1021 > Date _ Edis Billings Signature: Date CC: ~ Signed [facility]10-22-2025 History and physical note [facility] Medical Records Department [address] [place] [address] History & Physical Exam 07/17/25 0925 MR#: [id number] Acct: [id number] Name: KALE SHEEHAN Rep #:[id number] : 1955 69 From: Lilian Kimbrough MD PCP: Dr. Alexsander Casanova MD Status:[facility] Location: [place] [address] HPI - General General Date of Service: 07/17/25 HPI Narrative KALE SHEEHAN, is a 69 M who presents for screening colonoscopy due to historyof colon polyps. Patient's last colonoscopy was 04/2022 had multiple tubular adenomas at that time. Patient denies any family history of colon cancer. Patient has bowel movements daily denies any blood. [facility] Medical History Shortness of breath on exertion Former smoker Wears hearing aid Wears glasses Wears dentures Depression Anxiety Prostate disease Fatty liver Easy bruising Back pain History of hiatal hernia History of diverticulitis On home oxygen therapy Leg cramps Chronic cough History of stress test Hypertension GERD (gastroesophageal reflux disease) Prostate atrophy Osteoarthritis COPD (chronic obstructive pulmonary disease) Chronic bronchiolitis Carpal tunnel syndrome Asthma Arthritis Home Medications ?Medication ?Instructions ?Recorded ?Last Taken ?Type cholecalciferol (vitamin D3) 50 2,000 unit PO DAILY Unknown History mcg (2,000 unit) capsule multivitamin with folic acid 200 200 mcg PO DAILY 10/13 Unknown History mcg chewable tablet (Adult Multivitamin Extra Vitamin D3) tamsulosin 0.4 mg capsule 0.4 mg PO QHS 11/24/17 Unkno wn History albuterol sulfate 90 mcg/actuation 2 puff inhalation Q 6H PRN SOB 12/11/21 06/23/22 History aerosol inhaler 2 puff finasteride 5 mg tablet 5 mg PO DAILY 12/11/21 Unkno wn History docusate sodium 100 mg capsule 100 mg PO DAILY 2 Unknown History (Stool Softener) budesonide 160 mcg-glycopyr 9 2 inh inhalation BID 06/20 Unknown History mcg-formot 4.8 mcg/actuation HFA inhaler (Breztri Aerosphere) cyanocobalamin-liver extract tablet 1 tab PO QWEEK 03/20 Unknown History atorvastatin 20 mg tablet (Lipitor) 20 mg PO QHS 07/16 Unknown History Allergy/AdvReac Type Severity Reaction Status Date / Time ibuprofen Allergy Mild shakes Verified 07/17/25 08:38 formoterol AdvReac Unknown unknown Verified 07/17/25 08:38 mometasone furoate AdvReac Unknown unknown Verified 07/17/25 08:38 Family History Other Alcohol abuse Anemia Arthritis Heart disease Kidney disease Myocardial infarction Respiratory disease Surgical History Hx of colonoscopy History of esophagogastroduodenoscopy (EGD) Hx of foot surgery Social History Smoking Status: Former smoker quit date: 12/23/22 pack-years: 40 Tobacco: How many years used: 40 alcohol intake: never substance use type: does not use what type of physical activity do you participate in: none Past Medical/Surgical History Planned Operation Planned Operative Procedure(s): COLONOSCOPY-OA Previous Hospitalizations/Surgeries HX Hospitalizations: No Any Problems With Anesthesia: No You/Your Family Experience Fever (Hyperthermia) With Anes: No Cholinesterase deficiency: No Cardiovascular Hx Hypertension: Yes (NO MED PRESENTLY) Respiratory Hx Sleep Apnea: No Hx Respiratory Tract Infection/Cold (presently): No Do You Snore Loudly (louder than talking or can be heard): No Do You Often Feel Tired/ Fatigued/ Sleepy Dring Daytime?: No Has Anyone Observed You Stop Breathing During Sleep?: No Result (for STOP score): Negative Smoking Status: Former smoker Neurological Does patient have nerve stimulator: No Reproduction : No Miscellaneous Recent Exposure to Contagious Disease: No Allergies ibuprofen Allergy (Mild, Verified 07/17/25 08:38) shakes formoterol Adverse Reaction (Unknown, Verified 07/17/25 08:38) unknown mometasone furoate Adverse Reaction (Unknown, Verified 07/17/25 08:38) unknown Discharge Is Pt Admitted From a Care Home, or a [facility]: No After D/C, Where Do you Plan to Go: Return Home Vital Signs Vital Signs Vital Signs: 07/17/25 08:40 07/17/25 08:40 Temperature 98.1 F Temperature Source Temporal Pulse Rate 86 Respiratory Rate 18 Respiratory Pattern Normal Blood Pressure 101/79 Blood Pressure Mean 86 Blood Pressure Source Monitor Blood Pressure Position Sitting Blood Pressure Location Left Arm Pulse Ox 99 Oxygen Delivery Method Room Air Weight Weight: 189 lb 9.561 oz Body Mass Index (BMI) 29.7 Physical Exam Const alert, oriented x3 and no apparent distress HEENT normocephalic and head/scalp atraumatic Resp normal respiratory effort Cardio regular rate GI soft to palpation and non-tender; Negative for non-distended Palpation: Negative for guarding Extremity no clubbing, cyanosis or edema Skin no rashes or lesions noted Neuro CN's II-XII intact bilaterally Psych mental status grossly normal Assessment & Plan Assessment/Plan (1) Hx of colonic polyps: Surgery Risks - Colonoscopy I discussed with the patient the risks of the procedure: Yes Risks Include but are not Limited To: Risks include but are not limited to: Bleeding, perforation requiring further surgery, inability to complete colonoscopy requiring barium enema. 07/17/25926 Cosigner Signature (if applicable): CC: Dr. Alexsander Casanova MD; Dr. Lilian Kimbrough MD~ Signed [facility]10-22-2025 Consult note [facility] Medical Records Department [address] [place] [address] Pre-Anesthesia Evaluation 07/17/25833 MR#: [id number] Acct: [id number] Name: KALE SHEEHAN Rep #:[id number] : 1955 69 From: Singh Salazar MD PCP: Dr. Alexsander Casanova MD Status:[facility] Y Race: C Location: [place] [address] ASA Classification* ASA Classification ASA Classification: 3 Assessment & Plan Anesthesia* Anesthesia Assessment Anesthesia Assessment: Discussed sedation and/or anesthesia options, risks, benefits, and alternatives with patient/parents/legal guardian/POA. Questions invited. The patient/parents/legal guardian/POA seems to understand and agrees to proceedwith anesthesia plan. Reviewed the physical assessment, medical history, allergy history and patient home medications list prior to surgery/procedure/anesthetic and documented any changes. Performed airway and anesthesia risk assessments. Anesthesia Type Anesthesia Type: MAC Anesthesia Focused Assessment* Airway Assessment Mouth opens: >3 cm Mallampati Score: II Labs Anesthesia Preop lab: CBC WBC, (4.4-11.0) 7.6 K/mm3 06/13/25, 14: RBC, (4.6-6.2) 4.39 M/mm3 L 06/13/25, 14: Hgb, (13.0-16.5) 14.1 g/dL 06/13/25, 14: Hct, (40-54) 41.6 % 06/13/25, 14:09 Plt Count, (150-450) 191 K/mm3 06/13/25, 14:09 CHEMISTRY Potassium, (3.3-5.1) 4.1 mmol/L 06/13/25, 14:09 Sodium, (133-145) 141 mmol/L 06/13/25, 14:09 Magnesium, (1.5-2.2) 2.2 mg/dL 06/13/25, 14:09 BUN, (4-19) 10 mg/dL 06/13/25, 14:09 Creatinine, (0.70-1.20) 1.00 mg/dL 06/13/25, 14:09 Glucose, (70-99) 81 mg/dL 06/13/25, 14:09 TSH, (0.300-4.200) 2.540 uIU/mL 06/13/25, 14:09 COAG Pre-Assessment Diagnosis/Proposed Procedure Planned Operative Procedure(s): COLONOSCOPY-OA Anesthesia History Anesthesia History - advertiser: Anesthesia History - advertiser Hx Hospitalization No 07/16/25 13:03 Any Problems With Anesthesia No 07/16/25 13:03 Cholinesterase deficiency No 07/16/25 13:03 You/Your Family Experience No 07/16/25 13:03 fever (hyperthermia) with Relationship Recent Exposure to Contagious No 06/23/22 09:31 Disease Does patient have nerve No 07/16/25 13:03 stimulator Patient instructed to have device shut off --Does patient have Pacemaker or ICD? When Was Last Pacemaker Check QUESTION #4 FULL TEXT: You/Your Family Experience fever (hyperthermia) with Anesthesia Last Oral Intake Last Oral intake: Last Oral Intake NPO since Meds taken in AM with sips of water? Meds patient instructed to take am of surgery PONV PONV - advertiser: PONV - advertiser Female No 07/16/25 13:03 HX of Motion Sickness No 07/16/25 13:03 HX of N/V After Surgery No 07/16/25 13:03 Non-Smoker Yes 07/16/25 13:03 Duration of Surgery greater No 07/16/25 13:03 than 60 minutes Number of Risk Factors 1 07/16/25 13:03 PONV Score Low Risk 07/16/25 13:03 Height & Weight Height & Weight: Anesthesia: Height & Weight Height 5 ft 7 in 05/01/25 08:43 Respiratory Assessment Respiratory Assessment - advertiser: Respiratory Tract Infection Hx - advertiser Hx Respiratory Tract Infection No 07/16/25 13:03 STOP Sleep Apnea STOP Sleep Apnea - advertiser: STOP Sleep Apnea - advertiser Hx Hypertension Yes: NO MED PRESENTLY 07/16/25 13:03 Hx Sleep Apnea No 07/16/25 13:03 CPAP BIPAP Do you snore loudly (louder No 07/16/25 13:03 than talking or can be heard Do you often feel tired/ No 07/16/25 13:03 fatigued/ sleepy during daytime? Has anyone observed you stop No 07/16/25 13:03 breathing during sleep? STOP Results Negative 07/16/25 13:03 QUESTION #5 FULL TEXT : Do you snore loudly (louder than talking or can be heard through closeddoors)? 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 Specify any problems Hx of Preganancy in last 3 N/A 07/16/25 13:03 Months Nurse Filling Out Transfusion VCHRISTIN 07/16/25 13:03 & Questions: Date: 07/16/25 07/16/25 13:03 Time: 13:04 07/16/25 13:03 Patient unable to answer at this time (ie. confused, unrespo /Reproduction History /Reproductive History - advertiser: /Reproductive Hx- advertiser Hx Now No 07/16/25 13:03 Gestational Age (in weeks): EDC: Hx Hx Para Hx Section SAB No 07/16/25 13:03 PFSH Medical History Shortness of breath on exertion Former smoker Wears hearing aid Wears glasses Wears dentures Depression Anxiety Prostate disease Fatty liver Easy bruising Back pain History of hiatal hernia History of diverticulitis On home oxygen therapy Leg cramps Chronic cough History of stress test Hypertension GERD (gastroesophageal reflux disease) Prostate atrophy Osteoarthritis COPD (chronic obstructive pulmonary disease) Chronic bronchiolitis Carpal tunnel syndrome Asthma Arthritis Home Medications ?Medication ?Instructions ?Recorded ?Last Taken ?Type cholecalciferol (vitamin D3) 50 2,000 unit PO DAILY Unknown History mcg (2,000 unit) capsule multivitamin with folic acid 200 200 mcg PO DAILY 10/13 Unknown History mcg chewable tablet (Adult Multivitamin Extra Vitamin D3) tamsulosin 0.4 mg capsule 0.4 mg PO QHS 11/24/17 Unkno wn History albuterol sulfate 90 mcg/actuation 2 puff inhalation Q 6H PRN SOB 12/11/21 06/23/22 History aerosol inhaler 2 puff finasteride 5 mg tablet 5 mg PO DAILY 12/11/21 Unkno wn History docusate sodium 100 mg capsule 100 mg PO DAILY 2 Unknown History (Stool Softener) budesonide 160 mcg-glycopyr 9 2 inh inhalation BID 06/20 Unknown History mcg-formot 4.8 mcg/actuation HFA inhaler (Breztri Aerosphere) cyanocobalamin-liver extract tablet 1 tab PO QWEEK 03/20 Unknown History atorvastatin 20 mg tablet (Lipitor) 20 mg PO QHS 07/16 Unknown History Allergy/AdvReac Type Severity Reaction Status Date / Time ibuprofen Allergy Mild shakes Verified 07/16/25 12:56 formoterol AdvReac Unknown unknown Verified 07/16/25 12:56 mometasone furoate AdvReac Unknown unknown Verified 07/16/25 12:56 Family History Other Alcohol abuse Anemia Arthritis Heart disease Kidney disease Myocardial infarction Respiratory disease Surgical History Hx of colonoscopy History of esophagogastroduodenoscopy (EGD) Hx of foot surgery Social History Smoking Status: Former smoker quit date: 12/23/22 pack-years: 40 Tobacco: How many years used: 40 alcohol intake: never substance use type: does not use what type of physical activity do you participate in: none Review of Systems (Anesthesia) ROS Narrative System reviewed and no additional complaints, except as documented. 07/17/25 0835 > Date _ Singh Salazar MD [facility] Signature: Date CC: ~ Signed [facility]10-22-2025 [facility] Medical Records Department [address] [place] [address] History Physical Exam 07/17/25924 MR#: [id number] Acct: [id number] Name: KALE SHEEHAN Rep #: [id number] : 1955 69 From: Lilian Kimbrough MD PCP: Dr. Alexsander Casanova MD Status:[facility] Location: [place] [address] HPI - General General Date of Service: 07/17/25 HPI Narrative KALE SHEEHAN, is a 69 M who presents for screening colonoscopy due to history of colon polyps. Patient's last colonoscopy was 04/2022 had multiple tubular adenomas at that time. Patient denies any family history of colon cancer. Patient has bowel movements daily denies any blood. [facility] Medical History Shortness of breath on exertion Former smoker Wears hearing aid Wears glasses Wears dentures Depression Anxiety Prostate disease Fatty liver Easy bruising Back pain History of hiatal hernia History of diverticulitis On home oxygen therapy Leg cramps Chronic cough History of stress test Hypertension GERD (gastroesophageal reflux disease) Prostate atrophy Osteoarthritis COPD (chronic obstructive pulmonary disease) Chronic bronchiolitis Carpal tunnel syndrome Asthma Arthritis Home Medications ???Medication ???Instructions ???Recorded ???Last Taken ???Type cholecalciferol (vitamin D3) 50 2,000 unit PO DAILY 11/24/17 Unkno wn History mcg (2,000 unit) capsule multivitamin with folic acid 200 200 mcg PO DAILY 11/24/17 Unknown History mcg chewable tablet (Adult Multivitamin Extra Vitamin D3) tamsulosin 0.4 mg capsule 0.4 mg PO QHS 11/24/17 Unknown His tory albuterol sulfate 90 mcg/actuation 2 puff inhalation Q6H PRN SOB 06/23/22 History aerosol inhaler 2 puff finasteride 5 mg tablet 5 mg PO DAILY 12/11/21 Unknown His tory docusate sodium 100 mg capsule 100 mg PO DAILY 05/05/22 Unknown H istory (Stool Softener) budesonide 160 mcg-glycopyr 9 2 inh inhalation BID 01/02/25 Unkn own History mcg-formot 4.8 mcg/actuation HFA inhaler (Breztri Aerosphere) cyanocobalamin-liver extract tablet 1 tab PO QWEEK 05/01/25 Unknown History atorvastatin 20 mg tablet (Lipitor) 20 mg PO QHS 07/16/25 Unknown H istory Allergy/AdvReac Type Severity Reaction Status Date / Time ibuprofen Allergy Mild shakes Verified 07/17/25 08:38 formoterol AdvReac Unknown unknown Verified 07/17/25 08:38 mometasone furoate AdvReac Unknown unknown Verified 07/17/25 08:38 Family History Other Alcohol abuse Anemia Arthritis Heart disease Kidney disease Myocardial infarction Respiratory disease Surgical History Hx of colonoscopy History of esophagogastroduodenoscopy (EGD) Hx of foot surgery Social History Smoking Status: Former smoker quit date: 12/23/22 pack-years: 40 Tobacco: How many years used: 40 alcohol intake: never substance use type: does not use what type of physical activity do you participate in: none Past Medical/Surgical History Planned Operation Planned Operative Procedure(s): COLONOSCOPY-OA Previous Hospitalizations/Surgeries HX Hospitalizations: No Any Problems With Anesthesia: No You/Your Family Experience Fever (Hyperthermia) With Anes: No Cholinesterase deficiency: No Cardiovascular Hx Hypertension: Yes (NO MED PRESENTLY) Respiratory Hx Sleep Apnea: No Hx Respiratory Tract Infection/Cold (presently): No Do You Snore Loudly (louder than talking or can be heard): No Do You Often Feel Tired/ Fatigued/ Sleepy Dring Daytime?: No Has Anyone Observed You Stop Breathing During Sleep?: No Result (for STOP score): Negative Smoking Status: Former smoker Neurological Does patient have nerve stimulator: No Reproduction : No Miscellaneous Recent Exposure to Contagious Disease: No Allergies ibuprofen Allergy (Mild, Verified 07/17/25 08:38) shakes formoterol Adverse Reaction (Unknown, Verified 07/17/25 08:38) unknown mometasone furoate Adverse Reaction (Unknown, Verified 07/17/25 08:38) unknown Discharge Is Pt Admitted From a Care Home, or a [facility]: No After D/C, Where Do you Plan to Go: Return Home Vital Signs Vital Signs Vital Signs: 07/17/25 08:40 07/17/25 08:40 Temperature 98.1 F Temperature Source Temporal Pulse Rate 86 Respiratory Rate 18 Respiratory Pattern Normal Blood Pressure 101/79 Blood Pressure Mean 86 Blood Pressure Source Monitor Blood Pressure Position Sitting Blood Pressure Location Left Arm Pulse Ox 99 Oxygen Delivery Method Room Air Weight Weight: 189 lb 9.561 oz Body Mass Index (BMI) 29.7 (more content not included)...[facility]09-28-2025 Radiology Diagnostic study note [facility] Imaging Services [address] [place] [address] Post Void Residual Bladder MR#: [id number] Acct: [id number] Name: KALE SHEEHAN Rep #: [id number] : 1955 M 69 From: Chau Miller DO PCP: Dr. Alexsander Casanova MD Status: RE G CLI Study:Post Void Residual Bladder Date of Exam : 06/20/25 Exam# [id number] Ordering Dr: Alexsander Casanova MD PROCEDURE: POST [...] for UTIs and urinary reflux. Reading Location: [id number] CC: Dr. Alexsander Casanova MD ~ Statistics Manager: Signed [facility]08-06-2025 Evaluation note* Diagnosis Onset Date Resolution Status Admit Date Hypoxia acute May 01 2:36pm Asthma chronic May 01 2:36pm Smoking greater than 40 pack years chronic May 01, 2025 2:36pm Stage 3 severe COPD by GOLD classification chronic May 01, 2025 2:36pm [facility] Work Phone: 1(146) 404-174808-06-2025 Evaluation note* Diagnosis Onset Date Resolution Status Admit Date Hypoxia acute May 01 2:36pm Asthma chronic May 01 2:36pm Smoking greater than 40 pack years chronic May 01, 2025 2:36pm Stage 3 severe COPD by GOLD classification chronic May 01, 2025 2:36pm Hx of colonic polyps acute Octo 2024 7:26am [facility] Work Phone: 1(804) 984-440204-09-2025 Evaluation note* Diagnosis Onset Date Resolution Status Admit Date Hypoxia acute January 02 7:48am Asthma chronic January 02 7:48am Smoking greater than 40 pack years chronic January 02, 2025 7:48am Stage 3 severe COPD by GOLD classification chronic January 02, 2025 7:48am [facility] Work Phone: 1(790) 193-700704-09-2025 Evaluation note* Diagnosis Onset Date Resolution Status [...] GOLD classification chronic May 01, 2025 2:36pm [facility] Work Phone: 1(422) 761-566404-02-2025 Radiology Diagnostic study note [facility] Imaging Services [address] [place] [address] Lung Screening MR#: [id number] Acct: [id number] Name: KALE SHEEHAN Rep #: [id number] : 1955 M 69 From: Benigno Martinez MD PCP: Dr. Alexsander Casanova MD Status: RE G CLI Study:Low Dose CT Lung Screening Date of Exam : 12/26/24 Exam# [id number] Ordering Dr: Ariadne West ROPING TENDER ROPING TENDER-C PROCEDURE: LOW DOSE CT LUNG SCREENING 12/26/2024 [...] use of iterative reconstruction technique). REFERENCE LINK: [facility] Lung-RADS RADIATION DOSE SUMMARY: CTDlvol: 4.02 mGy [...] LDCT. Other Significant Findings: None. Reading Location: [place] [address] CC: ANANDA West; Dr. Alexsander Casanova MD ~ Statistics Manager: Signed [facility]04-18-2022 Miscellaneous Notes* Telephone Encounter - Dang [...] scheduled at this time. Patient Phone numbers: [phone] (home) Request is for script(s) to be escript to pharmacy. Latisha Calvo [facility] note Author Edis Mccormack [facility] Note Date/Time July 17, 2025 1 1:21am [facility] Medical Records Department [address] [place] [address] Anesthesia Postop Eval I 07/17/25 1020 MR#: [id number] Acct: [id number] Name: KALE SHEEHAN Rep #:[id number] : 1955 69 From: Edis Mccormack PCP: Dr. Alexsander Casanova MD Status:NEHA ACUÑA Y Race: C Location: [place] [address] Anesthesia: Postop Eval I Current Vital Signs Temperature: 98 F Pulse Rate: 70 Blood Pressure: 105/74 Respiratory Rate: 16 Pulse Ox: 98 Oxygen Delivery Method: Room Air Assessment Airway patent: Yes Spontaneous unlabored respirations: Yes Mental status: Awake and Calm nausea: No Vomiting: No Anesthesia Complication: No Fluid Hydration Crystalloid volume administer (ml): 500 Total IV fluid infused: 500 Progress Note Anesthesia document: Postop Eval 1 completed: Yes 07/17/25 1021 <Electronically signed by Edis Mccormack > Date _ Edis Billings Signature: Date CC: ~ Signed [facility] Work Phone: Consult note Author Singh Salazar [facility] Note Date/Time July 17, 2025 1 2:12pm [facility] Medical Records Department [address] [place] [address] Anesthesia Postop Eval II 07/17/25 1044 MR#: [id number] Acct: [id number] Name: KALE SHEEHAN Rep #:[id number] : 1955 69 From: Singh Salazar MD PCP: Dr. Alexsander Casanova MD Status:NEHA Sierra Race: C Location: [place] [address] Anesthesia Postop Eval I Sum Postop Eval Completion status Anesthesia document: Postop Eval 1 completed: Yes Anesthesia Postop Eval I Summary Anesthesia Postop Eval I Summary: Anesthesia Postop Eval I: Assessment Summary Airway patent Yes 07/17/25 10:21 [email or web address] Spontaneous unlabored Yes 07/17/25 10:21 [email or web address] respirations Mental status Awake,Calm 07/17/25 10:21 [email or web address] nausea No 07/17/25 10:21 [email or web address] Vomiting No 07/17/25 10:21 [email or web address] Anesthesia Postop Eval I: Fluid Summary Crystalloid volume administer 500 07/17/25 10:21 [email or web address] (ml) Colloids volume administered ( ml) Blood Product volume administered (ml) Total IV fluid infused 500 07/17/25 10:21 [email or web address] Anesthesia Postop Eval I: Summary Notes Anesthesia Complication No 07/17/25 10:21 [email or web address] Anesthesia Complication Comment: Post-operative progress note Anesthesia: Postop Eval II Evaluation Mental status: Awake Pain Level: 0 nausea: No Vomiting: No 07/17/25 1044 <Electronically signed by Singh Salazar MD > Date _ Singh Billings Signature: Date CC: ~ Signed [facility] Work Phone: Evaluation note* Diagnosis Onset Date Resolution Status Oral thrush acute Smoking greater than 40 pack years acute Stage 3 severe COPD by GOLD classification chronic Stage 3 severe COPD by GOLD classification [facility] Work Phone: Evaluation note* Diagnosis Onset Date Resolution Status Stage 3 severe COPD by GOLD classification chronic GERD (gastroesophageal reflux disease) acute Hx of colonic polyps acute Umbilical hernia without obs truction and without gangrene acute GERD (gastroesophageal reflux disease) acute Hx of colonic polyps acute [facility] Work Phone: Evaluation note* Diagnosis Onset Date Resolution Status GERD (gastroesophageal reflux disease) acute Hx of colonic polyps acute Umbilical hernia without obs truction and without gangrene acute GERD (gastroesophageal reflux disease) acute Hx of colonic polyps acute Abnormal findings on esophagogastroduodenoscopy (EGD) acute GERD (gastroesophageal reflux disease) acute [facility] Work Phone: Evaluation note* Diagnosis Onset Date Resolution Status GERD (gastroesophageal reflux disease) acute Hx of colonic polyps acute Abnormal findings on esophagogastroduodenoscopy (EGD) acute GERD (gastroesophageal reflux disease) acute Obesity (BMI 30.0-34.9) acut e Tobacco abuse acute Stage 3 severe COPD by GOLD classification [facility] Work Phone: Evaluation note* Diagnosis Onset Date Resolution Status Obesity (BMI 30.0-34.9) acut e Tobacco abuse acute Stage 3 severe COPD by GOLD classification [facility] Work Phone: Evaluation noteNo assessment information available [facility] Work Phone: Evaluation note* Diagnosis Onset Date Resolution Status Asthma acute Stage 3 severe COPD by GOLD classification [facility] Work Phone: Reason for referral (narrative)No reason for referral information availableWAC[facility] Work Phone: Summary Purpose Family History Relationship Condition Age at Onset Recorded Date/T shanel Not Specified Alcohol abuse Unknown Anemia Unknown Arthritis Unknown Cardiac disease Unknown Kidney disorder Unknown Myocardial infarction Unknown Disorder of respiratory system Unknown Advance Directives Documents on File Type Date Recorded Patient Micro Lab Analyst Expl anation Advance Directive(s) 12/30/2018 10:33 PM Advance Directive(s) 03/11/2018 10:34 PM Advance Directive(s) 02/08/2018 8:48 AM Advance Directive(s) 09/28/2017 7:05 PM Advance Directive Response Recorded Date/ Time Name of Medical Power of Property Disposal Officer May 05, 2022 11:19am Living Will Yes May 05 11:19am Power of Property Disposal Officer Yes May 05 11:19am Advance Directive Response Recorded Date/ Time Name of Medical Power of Property Disposal Officer May 05, 2022 11:19am Name of Medical Power of Property Disposal Officer SPOUSE June 18, 2022 2:51pm Living Will Yes June 18, 2022 2:51pm Power of Property Disposal Officer Yes May 2:51pm Advance Directive Response Recorded Date/ Time Name of Medical Power of Property Disposal Officer May 05, 2022 10:19am Name of Medical Power of Property Disposal Officer SPOUSE June 18, 2022 1:51pm Living Will Yes June 18, 2022 1:51pm Power of Property Disposal Officer Yes May 1:51pm Advance Directive Response Recorded Date/ Time Living Will Yes June 18, 2022 1:51pm Power of Property Disposal Officer Yes May 1:51pm Advance Directive Response Recorded Date/ Time Living Will Yes June 18, 2022 2:51pm Power of Property Disposal Officer Yes May 2:51pm Advance Directive Response Recorded Date/ Time Do you have a Healthcare Power of Property Disposal Officer? No July 16, 2025 12:03pm Hospital Course Note HNO ID: [id number] Author: Graciela Mckeon Service: Hospital Medicine Author [...] GOLD classificati on May 01, 2025 2:36pm Reason for Visit Admit Date Hypoxia May 01, 2025 2:3 6pm Asthma May 01, 2025 2:3 6pm Smoking greater than 40 pack years Augus t 2024 2:36pm Stage 3 severe COPD by GOLD classificati on May 01, 2025 2:36pm Hx of colonic polyps July 17, 2025 7:26am Additional Source Comments (unrecognized sect ion and content) No Status Records FoundNo Status Records FoundNo Status Records FoundNo Status Records Found INFORMATION SOURCE (unrecogn ized section and content) DATE CREATED AUTHOR 03/15/2018 [facility] DATE CREATED AUTHOR AUTHOR'S ORGANIZ ATION 01/02/2019 [facility] DATE CREATED AUTHOR AUTHOR'S ORGANIZ ATION 10/29/2021 [facility] DATE CREATED AUTHOR AUTHOR'S ORGANIZ ATION 07/31/2025 [facility] Source Comments (unrecognize d section and content) In the event this informatio n is protected by the Federal Confidentiality of Alcohol and Drug Abuse Patient Records regulations: The Federal rules restrict any use of the information to criminally investigate or prosecute any alcohol or drug abuse patient.[facility] Reason for Visit (unrecogniz ed section and content) Reason Comments Refill Request [facility] Care Teams (unrecognized sec tion and content) Gift Officer Relationship Specialty Start Date End Date Cliff aPstor [address] [place] [address] PCP - General Internal Medicine 12/30/18 Team Status: Active Member Role Status Dates Dr. Alexsander Casanova MD Primary Care Provider Active Team Status: Inactive Member Role Status Dates Dr. Alexsander Casanova MD Primary Care Provider Active Dr. Marcelo Morgan MD Attending Provider, Referring Pr ovider Active Team Status: Inactive Member Role Status Dates Dr. Alexsander Casanova MD Primary Care Provider Active Elissa West ROPING TENDER, ROPING TENDER-C Attending Provider, Referrin g Provider Active Team Status: Inactive Member Role Status Dates Dr. Alexsander Casanova MD Primary Care Provider, Referr ing Provider Active Aleah Ball ROPING TENDER-C Attending Provider Active Team Status: Inactive Member Role Status Dates Dr. Alexsander Casanova MD Primary Care Provider, Attend ing Provider Active Team Status: Inactive Member Role Status Dates Dr. Alexsander Casanova MD Primary Care Pr ovider, Attending Provider, Referring Provider Active Team Status: Inactive Member Role Status Dates Dr. Alexsander Casanova MD Primary Care Provider Active Elissa West ROPING TENDER, ROPING TENDER-C Attending Provider Active Team Status: Inactive Member [...] 2024 End: December 26, 2024 Elissa West ROPING TENDER, ROPING TENDER-C Attending Provider Active Start: December 26, 2024 End: December 26, 2024 Elissa West ROPING TENDER, ROPING TENDER-C Referring Provider Active Start: December 26, 2024 End: December 26, 2024 Team Status: Active Member Role/Relationship Status Dates Dr. Alexsander Casanova MD Primary Care Provider Active Team Status: Inactive Member Role/Relationship Status Dates Dr. Alexsander Casanova MD Primary Care Provider Active Start: December 26, 2024 End: December 26, 2024 Elissa West ROPING TENDER, ROPING TENDER-C Attending Provider Active Start: December 26, 2024 End: December 26, 2024 Elissa West ROPING TENDER, ROPING TENDER-C Referring Provider Active Start: December 26, 2024 End: December 26, 2024 Team Status: Inactive Member Role/Relationship Status Dates Dr. Alexsander Casanova MD Primary Care Provider Active Start: January 02, 2025 End: January 02, 2025 Dr. Alexsander Casanova MD Referring Provider Active Start: January 02, 2025 End: January 02, 2025 Elissa West ROPING TENDER, ROPING TENDER-C Attending Provider Active Start: January 02, 2025 End: January 02, 2025 Team Status: Inactive Member Role/Relationship Status Dates Dr. Alexsander Casanova MD Primary Care Provider Active Start: April 15, 2025 End: April 15, 2025 Elissa West ROPING TENDER, ROPING TENDER-C Attending Provider Active Start: April 15, 2025 End: April 15, 2025 Elissa West ROPING TENDER, ROPING TENDER-C Referring Provider Active Start: April 15, 2025 End: April 15, 2025 Team Status: Inactive Member Role/Relationship Status Dates Dr. Alexsander Casanova MD Primary Care Provider Active Start: January 02, 2025 End: January 02, 2025 Dr. Alexsander Casanova MD Referring Provider Active Start: January 02, 2025 End: January 02, 2025 Elissa West ROPING TENDER, ROPING TENDER-C Attending Provider Active Start: January 02, 2025 End: January 02, 2025 Team Status: Inactive Member Role/Relationship Status Dates Dr. Alexsander Casanova MD Primary Care Provider Active Start: April 15, 2025 End: April 15, 2025 Elissa West ROPING TENDER, ROPING TENDER-C Attending Provider Active Start: April 15, 2025 End: April 15, 2025 Elissa West ROPING TENDER, ROPING TENDER-C Referring Provider Active Start: April 15, 2025 End: April 15, 2025 Team Status: Inactive Member Role/Relationship Status Dates Dr. Alexsander Casanova MD Primary Care Provider Active Start: May 01, 2025 End: May 01, 2025 Dr. Alexsander Casanova MD Referring Provider Active Start: May 01, 2025 End: May 01, 2025 Elissa West ROPING TENDER, ROPING TENDER-C Attending Provider Active Start: May 01, 2025 End: May 01, 2025 Team Status: Active Member Role/Relationship Status Dates Dr. Alexsander Casanova MD Primary care physician Active Team Status: Inactive Member Role/Relationship Status Dates Dr. Alexsander Casanova MD Primary care physician Active Start: April 15, 2025 End: April 15, 2025 Elissa West ROPING TENDER, ROPING TENDER-C Attending physician Active Start: April 15, 2025 End: April 15, 2025 Elissa West ROPING TENDER, ROPING TENDER-C Referring Provider Active Start: April 15, 2025 End: April 15, 2025 Team Status: Inactive Member Role/Relationship Status Dates Dr. Alexsander Casanova MD Primary care physician Active Start: May 01, 2025 End: May 01, 2025 Dr. Alexsander Casanova MD Referring Provider Active Start: May 01, 2025 End: May 01, 2025 Elissa West ROPING TENDER, ROPING TENDER-C Attending physician Active Start: May 01, 2025 [...] June 20, 2025 End: June 20, 2025 Team Status: Inactive Member Role/Relationship Status Dates Dr. Alexsander Casanova MD Primary care physician Active Start: July 17, 2025 End: July 17, 2025 Dr. Alexsander Casanova MD Referring Provider Active Start: July 17, 2025 End: July 17, 2025 Dr. Lilian Kimbrough MD Attending physician Active Start: July 17, 2025 End: July 17, 2025 Team Status: Active Member Role/Relationship Status Dates Dr. Alexsander Casanova MD Primary care physician Active Start: July 17, 2025 Dr. Alexsander Casanova MD Referring Provider Active Start: July 17, 2025 Dr. Lilian Kimbrough MD Attending physician Active Start: July 17, 2025 Dr. Lilian Kimbrough MD Nurse Practitioner Active Start: July 17, 2025 FOR RECORDS PERTAINING TO PATIENTS WHO [...] BE BASED ON THE PRIMARY CLINICAL RECORDS. [facility] [employer] provides no warranty or guarantee of the accuracy or completeness of information in this document.
== END | disposition home or self-care (01) ==
LOC: MFPLAB 14:06
PROVIDERS: PCP Family Medicine; Referring Provider Family Medicine; Visit Provider Family Medicine
DX: Z12.5 Encounter for screening for malignant neoplasm of prostate (principal)
CPT/HCPCS: 36415; 84153; G0103